=== PATIENT | female | born 1995 | race Caucasian/White ===

== ENCOUNTER 2017-08-21 11:11 | Emergency (ER) | payer MEDICAID, SELFPAY ==
[2017-08-21 11:13] VITALS: BP 120/88; PULSE 107; RESP 16; TEMP 37.1; O2SAT 96; BMI 36.8
--- NOTE | 2017-08-21 11:36 | ED.VISSUMM ---
- ER Visit Summary Date of Service: 08/21/17 Chief Complaint: [] Gonorrhea exposure History of Present Illness: The patient is a 22 F [] requesting antibiotics for exposure to gonorrhea and chlamydia. She reports she had unprotected intercourse with a male partner who reportedly tested positive for gonorrhea and chlamydia. She reports foul odor, dysuria. No significant discharge. She is refusing pelvic exam and requesting treatment. She was strongly encouraged to follow-up with an RETIREMENT PLAN SPECIALIST and receive a Pap smear. Physical Examination: [] Afebrile, vital signs stable. Cardiovascular exam is regular rate and rhythm. Lungs are clear to auscultation. Abdomen is soft and nontender. Pelvic exam was deferred by the patient. Test Results: [] None. Emergency Department Course and Treatment: [] Patient given 250 mg IM Rocephin and 1 g orally of azithromycin. The patient was encouraged to follow-up with her primary care physician. Treatment Plan: [] Follow-up with RETIREMENT PLAN SPECIALIST. Disposition: [] Discharge, stable. Impression: [] Gonorrhea exposure Chlamydia exposure This note was generated with [employer] dictation software. It may contain incorrect words, spelling, and punctuation that were not noted in review of the chart prior to signing ED Disposition - Plan for ED Patient: Chief Complaint: Female C/O Referrals: Care Physician,No Primary [Primary Care Provider] -
--- NOTE | 2017-08-21 11:39 | ED.DCSUM_ITS ---
- ER Visit Summary Date of Service: 08/21/17 Chief Complaint: [] Gonorrhea exposure History of Present Illness: The patient is a 22 F [] requesting antibiotics for exposure to gonorrhea and chlamydia. She reports she had unprotected intercourse with a male partner who reportedly tested positive for gonorrhea and chlamydia. She reports foul odor, dysuria. No significant discharge. She is refusing pelvic exam and requesting treatment. She was strongly encouraged to follow-up with an BRANCH EMPLOYMENT COORDINATOR and receive a Pap smear. Physical Examination: [] Afebrile, vital signs stable. Cardiovascular exam is regular rate and rhythm. Lungs are clear to auscultation. Abdomen is soft and nontender. Pelvic exam was deferred by the patient. Test Results: [] None. Emergency Department Course and Treatment: [] Patient given 250 mg IM Rocephin and 1 g orally of azithromycin. The patient was encouraged to follow-up with her primary care physician. Treatment Plan: [] Follow-up with BRANCH EMPLOYMENT COORDINATOR. Disposition: [] Discharge, stable. Impression: [] Gonorrhea exposure Chlamydia exposure This note was generated with Inmoo dictation software. It may contain incorrect words, spelling, and punctuation that were not noted in review of the chart prior to signing ED Disposition - Plan for ED Patient: Chief Complaint: Female C/O Referrals: Care Physician,No Primary [Primary Care Provider] -
--- NOTE | 2017-08-21 11:39 | ED.DEP ---
ED Disposition - Plan for ED Patient: Disposition: Home or Assisted Living Chief Complaint: Female C/O Instructions: ED VD Cervicitis Treated, ED Chlamydia GC Poss Culture Pend Referrals: Care Physician,No Primary [Primary Care Provider] -
[2017-08-21] MEDS: Azithromycin 250 MG Tablet 1000 MG PO (12:19)
[2017-08-21] MEDS: Ceftriaxone 500 MG Vial 250 MG IM (12:20)
[2017-08-21 12:35] VITALS: PULSE 95; RESP 18; O2SAT 97
== END 2017-08-21 12:35 | disposition home or self-care (01) ==
PROVIDERS: Emergency Provider Emergency Medicine
DX: Z20.2 Contact with and (suspected) exposure to infections with a predominantly sexual mode of transmission (principal); Z72.0 Tobacco use
CPT/HCPCS: 96372; 99283

== ENCOUNTER 2017-09-23 14:36 | Emergency (ER) | payer MEDICAID, SELFPAY ==
[2017-09-23 14:38] VITALS: BP 132/80; PULSE 100; PULSE 102; RESP 19; TEMP 36.9; O2SAT 97; BMI 36.3
--- NOTE | 2017-09-23 15:06 | ED.VISSUMM ---
- ER Visit Summary Date of Service: 09/23/17 Chief Complaint: I know I have an STD History of Present Illness: The patient is a 22 F who states her significant other exposed her again to an STD. States she is having discharge and discomfort. She states is been ongoing for the last week to 2 weeks. She denies any vaginal bleeding. Her last normal menstrual period was 2-3 weeks ago. She also wants to be checked to make sure she does not have a UTI . She denies any fever. Physical Examination: Well-appearing young female with 2 small children. Vital signs are stable afebrile. HEENT exam is unremarkable. Neck nontender no lymphadenopathy. Lungs clear to auscultation bilaterally. Heart regular rate and rhythm no murmur. Abdomen is soft nontender nondistended normal bowel sounds no peritoneal signs. She is moving all 4 extremities. They are neurovascularly intact. Back exam is nontender. Neurologically she is awake and alert with no focal motor deficits. Patient was offered but deferred a pelvic exam. She states I just want to be treated. Test Results: Pulses showed epithelial cells and 3+ bacteria but no other signs of UTI. Urine test was negative. Emergency Department Course and Treatment: With IM Rocephin and p.o. Zithromax. Treatment Plan: She will be treated for an STD given home-going instructions. Disposition: Discharge Impression: Vaginal discharge secondary to STD This note was generated with Postcron dictation software. It may contain incorrect words, spelling, and punctuation that were not noted in review of the chart prior to signing ED Disposition - Plan for ED Patient: Chief Complaint: Female C/O Referrals: Care Physician,No Primary [Primary Care Provider] -
[2017-09-23] MEDS: Azithromycin 250 MG Tablet 1000 MG PO (15:12)
[2017-09-23 15:18] LABS: Mucous, Urine 0 SEEN /hpf (<or=2+); Red Blood Cells-Urine 0 SEEN /hpf (0-5)
[2017-09-23 15:21] LABS: Color, Urine Yellow (Yellow); Glucose, Dipstick Normal (Normal); Ketone-Dipstick Negative (Negative); Leukocyte Esterase-Dipstick 500 /ul (Negative); Nitrite-Dipstick Negative (Negative); Occult Blood-Urine Negative /ul (Negative); Protein-Dipstick 15 mg/dl (Negative); Specific Gravity, Urine 1.015 (1.002-1.030); Urine Bilirubin Dipstick Negative (Negative); Urine Clarity Cloudy (Clear); Urine Urobilinogen 1 mg/dl (Normal)
[2017-09-23 15:22] LABS: Internal QC Validated? YES +Cl - CLEAR BKGD; Pregnancy, Urine Negative Negative
[2017-09-23 15:29] LABS: Amorphous Sediment 1+; Bacteria 3+ /hpf (None Seen); Squamous Epithelial Cells - UA 25-50 SEEN /hpf (5-10); White Blood Cells 0-5 SEEN /hpf (0-5)
--- NOTE | 2017-09-23 15:59 | DCINST.ED_ITS ---
ED Disposition - Plan for ED Patient: Disposition: Home or Assisted Living Chief Complaint: Female C/O Instructions: ED Chlamydia Female Referrals: Ary Landis MD [STAFF PHYSICIAN] - 1 Week if not improving Additional Instructions: Warn all sexual partners valuated. Follow-up with SCIENTIFIC RESEARCH ASSOCIATE physician if not improving.
[2017-09-23] MEDS: Ceftriaxone 500 MG Vial 250 MG IM (16:01)
== END 2017-09-23 16:13 | disposition home or self-care (01) ==
PROVIDERS: Emergency Provider Emergency Medicine
DX: A64 Unspecified sexually transmitted disease (principal); N89.8 Other specified noninflammatory disorders of vagina; R10.2 Pelvic and perineal pain
CPT/HCPCS: 81001; 81025; 96372; 99282

== ENCOUNTER 2017-12-08 15:34 | Emergency (ER) | payer MEDICAID, SELFPAY ==
[2017-12-08 15:35] VITALS: BP 127/74; PULSE 115; RESP 18; TEMP 36.3; O2SAT 96; BMI 36.8
--- NOTE | 2017-12-08 16:33 | ED.DCSUM_ITS ---
- ER Visit Summary Date of Service: 12/08/17 Chief Complaint: Foul smelling vaginal discharge, rash, head itching and couple days late History of Present Illness: The patient is a 22 F who states her menses is late by a couple of days presents with a foul smelling yellow vaginal discharge for 1 month. She complains of dyspareunia. She has history of gonorrhea, chlamydia and trichomonas. She is uncertain whether she had gonorrhea in the past. She is sexually active and does not use any form of control. She denies headache. She denies light sensitivity. She does complain of myalgias and arthralgias. She denies runny nose, sore throat or earache. She denies any cardiac or respiratory symptoms. She denies nausea, vomiting diarrhea. She does complain of dysuria without frequency or urgency. She denies hematuria. She also reports rash the back of her neck. She denies any fever, chills night sweats. She denies any double vision, blurred vision or loss of vision. She denies decreased hearing or ringing of her ears. Physical Examination: Vital signs are unremarkable. She is afebrile. HEENT exam is remarkable for pediculosis. She also has a rash that is either folliculitis versus a heat rash. Neck is supple. There is no cervical lymphadenopathy. Heart is regular without murmur, gallop or rub. S1 and S2 are normal. Lungs are clear to auscultation with good movement of air bilaterally. Abdomen is soft nontender with normal bowel sounds. There is no CVA tenderness noted. She is alert oriented ?3. Test Results: GC and Chlamydia PCR pending. Wet prep positive for trichomoniasis. Serum test negative. Emergency Department Course and Treatment: Will obtain urine for GC chlamydia and wet prep for trichomoniasis. Serum test was ordered. Nurse was informed that patient will need to be undressed for pelvic exam. Treatment Plan: 250 mg of Rocephin IM, 1 g of azithromycin p.o. and 2 g of metronidazole p.o. Patient states she has not had any alcoholic beverage in the last 72 hours. Disposition: Discharged to home with appropriate home-going instructions Impression: 1. Pediculosis 2. Trichomonas vaginosis 3. Amenorrhea unknown etiology This note was generated with Pocket High Streetation software. It may contain incorrect words, spelling, and punctuation that were not noted in review of the chart prior to signing ED Disposition - Plan for ED Patient: Disposition: Home or Assisted Living Chief Complaint: Female C/O Instructions: Vaginal Infection: Trichomoniasis, ED Lice Head Prescriptions: Permethrin 1% [Nix] 60 ml TOPICAL X1 #1 bottle Referrals: Care Physician,No Primary [Primary Care Provider] - Doctor,Your [STAFF PHYSICIAN] - 1 Week Additional Instructions: Your prescription was electronically transmitted to your designated pharmacy
--- NOTE | 2017-12-08 17:23 | CM.ED ---
Social Work Note Referral from Radha Burkett RN, for concerns of pt being overwhelmed with children. Introduced self and role at [facility]. Pt reports to be a single mother. States that the father of her older son, 3 yo, is involved but minimally. States that he has children with 3 other women, and just had a baby girl in the past few weeks. Father of her youngest child is not involved. Pt has very limited supports among family. Inquire about her mother listed on her demo sheet and she reports that her mother lives in [place] and never helps me with anything. Denies that she has any family or friends that live locally to assist when needed. Offer emotional support and brief counseling to pt. Identify strengths and encourage pt. Pt thanks SW. Reports that she lives with her two children only. She does have a wedding planner through [employer], Renya Cook, and states that she is assisting her with obtaining early childhood coordinator. She is presently unemployed and working towards her GED. Reports to have all necessary supplies for children and denies any needs. She is linked with WIC. Denies substance abuse at this time, and denies having any mental health diagnoses. She reports that she does feel depressed however. Denies SI or HI. She claims to have gone to counseling in the past at [facility] and [facility]. Educate to other agencies and pt is open to SW setting up an initial appointment with [facility] tomorrow and contacting her with the appointment time. She inquires how she would get medication for mental health diagnoses. Educate that counseling facilities typically have a psychiatrist that comes weekly, but it could be a few months before she would have an appointment with a psychiatrist. Educate to the importance of a Primary Care Physician (PCP) and that they can also manage mild medications for mental health diagnoses and pt is agreeable to have SW establish care with an area physician for management. Provide pt with resources such as [facility], [facility], [facility] Behavioral Health and Transportation assistance. She denies additional needs at this time. SW to contact and establish appointments with Counseling and PCP for pt. Will update Reyna Cook, insurance case manager, in morning as [facility] is presently closed. Plan: Setup appointments for counseling and PCP and contact pt tomorrow with appointment dates and times. Will also update pt's wedding planner Reyna Cook of visit and resources established/provided. Ange Bennett, 3D TECHNOLOGIST, CAUSTIC LOADER
[2017-12-08 17:39] LABS: Pregnancy, Serum, hCG Quali. NEGATIVE Negative (0-9 Nonpreg)
--- NOTE | 2017-12-08 17:48 | ED.RN ---
This RN expressed concerns for mother and children to social work. Mother is overwhelmed and agreed to speak with social work. See note.
[2017-12-08] MEDS: Azithromycin 250 MG Tablet 1000 MG PO (20:14)
[2017-12-08] MEDS: metroNIDAZOLE 500 MG Tablet 2000 MG PO (20:20)
[2017-12-08 20:23] VITALS: BP 129/98; PULSE 102; RESP 20; O2SAT 100
[2017-12-08] MEDS: Ceftriaxone 500 MG Vial 250 MG IM (20:30)
[2017-12-08 21:39] LABS: Chlamydia Trachomatis by PCR POSITIVE (Negative); Neisserai gonorrhoeae by PCR Negative (Negative); Probe Check PASS
--- NOTE | 2017-12-09 08:51 | CASEMGMT ---
Addendum entered by Ange Bennett 12/09/17 11:27: Social Work Note Call back from Reyna Cook, who states that the pt is constantly changing her phone number and unfortunately cannot provide or confirm one that is valid at this time. States that they have court with her on Thursday and she will have the pt contact SW at this number. States she will also have the pt sign a release so that SW can disclose appointment dates and times and Reyna can assist with transportation to appointments. Will await a phone call on Thursday before moving forward. EDWARD Culver, JEFF Original Note: Social Work Note Placed call to the number the pt provided as she states that the one on the demo sheet is incorrect. Call placed to [phone] and no vm is setup. Placed call to pt's airline station agent, Reyna Cook, to see if she has a recent number and to update on pt's visit yesterday. SW to continue to follow and assist. Once number is confirmed will setup appointments. EDWARD Culver, JEFF
--- NOTE | 2017-12-16 10:55 | CM.ED ---
Social Work Note Call from Mackenzie Topete stating that the pt's case was transferred from Reyna Cook to her. Inform that SW will setup appointments and let her know when they are for her to assist in getting pt to the appointments. Scheduled with Dr. Corral's office on 01/13 at 1400. She is also scheduled with Kisha Briceno at [facility] on 12/22 at 1315. Left Mackenzie a with this information. Requested that Mackenzie contact if any further assistance is needed with trying to setup transportation to appointments. Will continue to follow and assist as needed. Ange Bennett, SNUFF PACKING MACHINE OPERATOR, TILE LAYER HELPER
== END 2017-12-08 20:34 | disposition home or self-care (01) ==
PROVIDERS: Emergency Provider Emergency Medicine
DX: B85.2 Pediculosis, unspecified (principal); A59.01 Trichomonal vulvovaginitis; N91.2 Amenorrhea, unspecified
CPT/HCPCS: 84703; 87210; 87491; 87591; 96372; 99283

== ENCOUNTER 2018-03-22 11:19 | Emergency (ER) | payer MEDICAID, SELFPAY ==
[2018-03-22 11:20] VITALS: BP 125/78; PULSE 132; RESP 18; TEMP 36.6; O2SAT 98; BMI 35.6
--- NOTE | 2018-03-22 11:42 | ED.VISSUMM ---
- ER Visit Summary Date of Service: 03/22/18 Chief Complaint: STD exposure History of Present Illness: The patient is a 23 F who presents being exposed to STDs. She states that her partner has gonorrhea and chlamydia. She states that he has not been treated and she has been having intercourse. She started having a vaginal discharge and a mild amount of dysuria recently. She states that she has had STI's before and request to be treated. Physical Examination: Vital signs reviewed. HEENT exam unremarkable. Heart is regular rate and rhythm without murmurs. Lungs are clear to auscultation. Abdomen is soft and nontender. Patient deferred exam. Neurologic exam normal. Test Results: None performed Emergency Department Course and Treatment: Patient will be treated with Rocephin and azithromycin here. She will go home with Flagyl. She will follow-up with her PCP Treatment Plan: [] Disposition: Discharge Impression: STD exposure, vaginal discharge This note was generated with [employer] dictation software. It may contain incorrect words, spelling, and punctuation that were not noted in review of the chart prior to signing ED Disposition - Plan for ED Patient: Chief Complaint: Complaint Referrals: Care Physician,No Primary [Primary Care Provider] -
--- NOTE | 2018-03-22 11:43 | ED.DEP ---
ED Disposition - Plan for ED Patient: Disposition: Home or Assisted Living Chief Complaint: Complaint Instructions: ED VD Cervicitis Treated Prescriptions: Metronidazole [Flagyl] 500 mg PO Q8H #14 tab Referrals: Care Physician,No Primary [Primary Care Provider] -
[2018-03-22] MEDS: Azithromycin 250 MG Tablet 1000 MG PO (12:15)
[2018-03-22] MEDS: Ceftriaxone 500 MG Vial 250 MG IM (12:39)
[2018-03-22 13:12] VITALS: BP 140/78; PULSE 80; RESP 18; TEMP 37.2
== END 2018-03-22 13:14 | disposition home or self-care (01) ==
PROVIDERS: Emergency Provider Emergency Medicine
DX: Z20.2 Contact with and (suspected) exposure to infections with a predominantly sexual mode of transmission (principal); N89.8 Other specified noninflammatory disorders of vagina; R30.0 Dysuria; Z86.19 Personal history of other infectious and parasitic diseases; Z72.0 Tobacco use
CPT/HCPCS: 96372; 99283

== ENCOUNTER 2018-04-01 10:00 | Emergency (ER) | payer MEDICAID, SELFPAY ==
[2018-04-01] VITALS (11 sets, daily range): BP systolic 113–138; BP diastolic 71–95; PULSE 84–121; RESP 14–16; TEMP 37.4; O2SAT 97–99; BMI 34.0
--- NOTE | 2018-04-01 10:41 | NURSING ---
PER DR AGARWAL, CALLED [facility]
--- NOTE | 2018-04-01 10:42 | ED.DCSUM_ITS ---
- ER Visit Summary Date of Service: 04/01/18 Chief Complaint: [] Upset and stressed out suicidal History of Present Illness: The patient is a 23 F [] reports she has a long son standing stress related to situational issues of being a single mother with 2 children financial issues etc. she is been progressively more depressed about all the above and suicidal, she was brought in by friends because of the above she does indicate that yesterday or recently she smoked methamphetamine she does not normally smoke methamphetamine, she does occasionally smoke marijuana. She denies any other past history she has no complaints She is a rather reluctant historian she keeps saying I am stressed out I am stressed out what more you need to know those types of comments Physical Examination: [] Her vital signs are unremarkable except for heart rate of about 120 her temperature is 99 she is very anxious she is fidgeting in the bed she again is reluctant to participate with history her HEENT is unremarkable her neck is supple her lungs are clear the heart tones are tachycardic to about 100 the abdomen soft nontender upper lower extremity unremarkable neurologically she is moving normally she is fidgeting in the bed, she does admit to being suicidal she is concerned that we will assume that this is all because she used methamphetamine and assume she is some type of a drug addict and not help her, I explained her that not the case that we would help her we will obtain screening labs have mental health services come and assess her for further management options Test Results: [] Emergency Department Course and Treatment: [] Pending screening labs and meds mental health assessment Treatment Plan: [] Disposition: [] Mental health assessment Impression: [] Suicidal ideation, anxiety and situational stress, recent use of methamphetamine This note was generated with Real[employer] dictation software. It may contain incorrect words, spelling, and punctuation that were not noted in review of the chart prior to signing ED Disposition - Plan for ED Patient: Chief Complaint: Suicidal Referrals: Care Physician,No Primary [Primary Care Provider] -
--- NOTE | 2018-04-01 10:56 | NURSING ---
[facility] CALLED BACK. EVERYONE IS SEEING PATIENTS, BUT THEY WILL KEEP US UP TO DATE ON ARRIVAL TIME.
[2018-04-01] MEDS: LORazepam 1 MG Tablet 2 MG PO ×2 (10:59→18:00)
[2018-04-01 11:09] LABS: Absolute Lymphocyte Count 2.47 X10^3/ul (0.83-4.51); Absolute Neutrophil Count 9.2 X10^3/uL (2.0-7.7); Basophil# 0.04 X10^3/uL; Basophil% 0.3 % (0-1); Eosinophil# 0.17 X10^3/uL; Eosinophils% 1.3 % (0-5); Hematocrit 41.2 % (37-47); Hemoglobin 13.3 g/dl (12.0-15.0); Lymphocyte # 2.47 X10^3/ul (4.0); Lymphocyte % 19.4 % (19-41); Mean Corp Hgb Conc 32.3 g/gl (32-36); Mean Corpuscular Hgb 28.4 pg (27.0-32.0); Mean Corpuscular Volume 87.8 fL (81-99); Mean Platelet Vol. 10.4 fl (6.2-12.0); Monocyte# 0.86 X10^3/uL; Monocyte% 6.7 % (0-10); Neutrophil # 9.19 X10^3/uL (2.7-7.7); Neutrophil % 72.1 % (47-70); POSITIVE COUNT NO; POSITIVE DIFFERENTIAL NO; POSITIVE MORPHOLOGY NO; Platelet Count 350 K/mm3 (150-450); RBC Distribution Width CV 14.1 % (11.6-14.6); RBC Distribution Width SD 45.6 fl (35.1-43.9); Red Blood Count 4.69 M/mm3 (4.2-5.4); White Blood Count 12.8 K/mm3 (4.4-11.0)
[2018-04-01 11:16] LABS: Anion Gap 7 (5-15); BUN 10 mg/dL (7-18); BUN/Creat Ratio 13.6 RATIO (10-20); Calcium,Total 8.9 mg/dL (8.5-10.1); Chloride 108 mmol/L (98-107); Creatinine, Serum 0.74 mg/dL (0.55-1.02); EST Glomerular Filtration Rate 103 mL/min (>60); Est Glom Filt Rate - Afr Amer 125 mL/min (>60); Estimated Creatinine Clearance 101.23 ml/min; Glucose 91 mg/dL (74-106); Potassium 3.5 mmol/L (3.5-5.1); Sodium Level 140 mmol/L (136-145)
[2018-04-01 11:28] LABS: Pregnancy, Serum, hCG Quali. NEGATIVE Negative (0-9 Nonpreg)
[2018-04-01 11:29] LABS: Amphetamine Urine VISTA POSITIVE (<1000 ng/mL); Barbiturate Urine VISTA NEGATIVE (< 200 ng/mL); Benzodiazepine Urine VISTA NEGATIVE (< 200 ng/mL); Cocaine Urine VISTA NEGATIVE (< 300 ng/mL); Ecstacy Urine VISTA NEGATIVE (< 500 ng/mL); Methadone Urine VISTA NEGATIVE (< 300 ng/mL); PCP Urine VISTA NEGATIVE (< 25 ng/mL); THC Urine VISTA POSITIVE (< 50 ng/mL); Vista UDS pH Range 5
[2018-04-01 11:39] LABS: Alcohol, Blood (Medical)-Serum < 3.0 mg/dL
--- NOTE | 2018-04-01 12:03 | NURSING ---
CALLED [facility]. LEFT MESSAGE WITH PERSON THAT ANSWERED PHONE
--- NOTE | 2018-04-01 12:07 | NURSING ---
KATIE, [facility], CALLED BACK. SOMEONE WILL BE IN
--- NOTE | 2018-04-01 12:16 | ED.RN ---
CALLED [facility] FOR MEAL TRAY
--- NOTE | 2018-04-01 12:32 | ED.RN ---
PT INFORMED OF PLAN OF CARE. SHE WAS INFORMED THAT OUR JOB IS TO KEEP HER SAFE AND MEDICALLY CLEAR HER. IT IS [facility]'S JOB TO EVAL AND PLACE PT IF NEEDED. SHE STATES SHE IN NOT HOMICIDAL. JUST SUICIDAL AND REALLY NEEDS HELP. SHE WAS REASSURED THAT'S WHAT WE ARE TRYING TO DO. Radha LOWERY RN
[2018-04-01] MEDS: Albuterol 2.5 MG/3 ML VIAL.NEB. INHALATION (13:17)
[2018-04-01] MEDS: Acetaminophen 500 MG Tablet 1000 MG PO (18:00)
--- NOTE | 2018-04-01 21:46 | NURSING ---
[facility] CALLED TO NOTIFY THEM ABOUT HOSPITALIZATION ASK REQUESTED BY ICU STAFF NURSE ARLENE MONROY. CALLED NUMBER ON CARD. NO ANSWER. NO ANSWERING MACHINE TO LEAVE A MESSAGE. [phone] Radha LOWERY RN
== END 2018-04-01 22:17 ==
LOC: ED 11:03
PROVIDERS: Emergency Provider Emergency Medicine
DX: R45.851 Suicidal ideations (principal); F41.9 Anxiety disorder, unspecified; F43.9 Reaction to severe stress, unspecified; F15.90 Other stimulant use, unspecified, uncomplicated
CPT/HCPCS: 80048; 80307; 80320; 84703; 85025; 94640; 99285; G0480

== ENCOUNTER 2018-04-26 14:24 | Emergency (ER) | payer MEDICAID, SELFPAY ==
[2018-04-26 14:25] VITALS: BP 123/93; PULSE 142; RESP 18; TEMP 36.3; O2SAT 94; BMI 34.0
[2018-04-26 15:35] LABS: Red Blood Cells-Urine 0 SEEN /hpf (0-5)
[2018-04-26 15:42] LABS: Color, Urine Yellow (Yellow); Glucose, Dipstick Normal (Normal); Ketone-Dipstick 5 mg/dl (Negative); Leukocyte Esterase-Dipstick 500 /ul (Negative); Nitrite-Dipstick Negative (Negative); Occult Blood-Urine 10 /ul (Negative); Protein-Dipstick 15 mg/dl (Negative); Specific Gravity, Urine 1.025 (1.002-1.030); Urine Bilirubin Dipstick Negative (Negative); Urine Clarity Cloudy (Clear); Urine Urobilinogen 1 mg/dl (Normal)
[2018-04-26 15:54] LABS: Bacteria 2+ /hpf (None Seen); Squamous Epithelial Cells - UA 5-10 SEEN /hpf (5-10); White Blood Cells 5-10 SEEN /hpf (0-5)
[2018-04-26 15:55] LABS: Mucous, Urine 3+ /hpf (<or=2+)
--- NOTE | 2018-04-26 16:20 | ED.VISSUMM ---
- ER Visit Summary Date of Service: 04/26/18 Chief Complaint: Vaginal discharge and pelvic pain History of Present Illness: The patient is a 23 F with vaginal discharge and pelvic cramping and pain for the past 1 month. Patient describes green vaginal discharge. She states her partner is positive for gonorrhea and chlamydia. Patient was treated with Rocephin, Zithromax, and Flagyl in early March for this known exposure. Patient states her partner was never treated and she continues to have symptoms. Physical Examination: Vital signs in triage significant for heart rate of 142. The time of my examination her heart rate is 103. Patient sitting upright in bed watching television in no acute distress. She is nontoxic appearing. Head neck examination is normal. Heart is slightly tachycardic. Lung sounds are clear. Abdomen is soft with mild suprapubic tenderness. No guarding or rebound. Test Results: [] Emergency Department Course and Treatment: Patient declined a pelvic exam. Urine will be sent for gonorrhea and chlamydia. Urinalysis shows 5-10 white cells with 5-10 epithelials and 2+ bacteria. Nitrites are negative. Urine test will be added at this time along with the gonorrhea and chlamydia. Patient will be treated for STDs with Rocephin, doxycycline, and Flagyl. If her test returns positive I will call her. Patient was advised to have her partner treated. Treatment Plan: [] Disposition: Discharge Impression: STD This note was generated with [employer] dictation software. It may contain incorrect words, spelling, and punctuation that were not noted in review of the chart prior to signing ED Disposition - Plan for ED Patient: Chief Complaint: Complaint Referrals: Care Physician,No Primary [Primary Care Provider] -
--- NOTE | 2018-04-26 16:22 | ED.DEP ---
ED Disposition - Plan for ED Patient: Disposition: Home or Assisted Living Chief Complaint: Complaint Instructions: ED VD Cervicitis Treated Prescriptions: Doxycycline Monohydrate 100 mg PO BID #28 capsule Metronidazole [Flagyl] 500 mg PO BID #28 tablet Referrals: Haydee Martinez CNM [Certified Nurse Fuel Efficient Automobile Designer] - As soon as possible
--- NOTE | 2018-04-26 16:25 | DCINST.ED_ITS ---
ED Disposition - Plan for ED Patient: Disposition: Home or Assisted Living Chief Complaint: Complaint Instructions: ED VD Cervicitis Treated Prescriptions: Doxycycline Monohydrate 100 mg PO BID #28 capsule Metronidazole [Flagyl] 500 mg PO BID #28 tablet Referrals: Haydee Martinez CNM [Certified Nurse [employer] [place]] - As soon as possible
[2018-04-26] MEDS: Doxycycline 100 MG CAPSULE PO (16:39)
[2018-04-26] MEDS: metroNIDAZOLE 500 MG Tablet PO (16:39)
[2018-04-26 16:41] VITALS: BP 154/96; BP 156/94; PULSE 113; RESP 16; O2SAT 98
[2018-04-26 16:45] LABS: Internal QC Validated? YES +Cl - CLEAR BKGD; Pregnancy, Urine Negative Negative
[2018-04-26] MEDS: Ceftriaxone 500 MG Vial 250 MG IM (16:58)
[2018-04-26 18:21] LABS: Chlamydia Trachomatis by PCR Negative (Negative); Neisserai gonorrhoeae by PCR Positive (Negative); Probe Check PASS
--- NOTE | 2018-04-26 18:24 | ED.RN ---
POS FOR GONORRHEA DR AWAD AWARE NO NEED FOR DIFFERENT TREATMENT
== END 2018-04-26 17:16 | disposition home or self-care (01) ==
PROVIDERS: Emergency Provider Emergency Medicine
DX: A64 Unspecified sexually transmitted disease (principal); Z72.0 Tobacco use
CPT/HCPCS: 81001; 81025; 87491; 87591; 96372; 99283

== ENCOUNTER 2018-05-06 15:25 | Emergency (ER) | payer MEDICAID, SELFPAY ==
[2018-05-06 15:26] VITALS: BP 126/74; PULSE 108; RESP 16; TEMP 36.6; O2SAT 98; BMI 35.5
[2018-05-06 16:09] LABS: Bacteria 0 SEEN /hpf (None Seen); Mucous, Urine 0 SEEN /hpf (<or=2+); White Blood Cells 0 SEEN /hpf (0-5)
[2018-05-06 16:22] LABS: Color, Urine Yellow (Yellow); Glucose, Dipstick Normal (Normal); Ketone-Dipstick Negative (Negative); Leukocyte Esterase-Dipstick Negative /ul (Negative); Nitrite-Dipstick Negative (Negative); Occult Blood-Urine 10 /ul (Negative); Protein-Dipstick Negative (Negative); Specific Gravity, Urine 1.015 (1.002-1.030); Urine Bilirubin Dipstick Negative (Negative); Urine Clarity Clear (Clear); Urine Urobilinogen Normal (Normal)
[2018-05-06] MEDS: Azithromycin 250 MG Tablet 1000 MG PO (16:24)
[2018-05-06] MEDS: Acetaminophen 500 MG Tablet 1000 MG PO (16:25)
[2018-05-06] MEDS: metroNIDAZOLE 500 MG Tablet 2000 MG PO (16:25)
[2018-05-06] MEDS: Ondansetron ODT 4 MG Tablet PO (16:25)
[2018-05-06 16:35] LABS: Red Blood Cells-Urine 0-5 SEEN /hpf (0-5); Squamous Epithelial Cells - UA 0-5 SEEN /hpf (5-10)
--- NOTE | 2018-05-06 16:58 | ED.DCSUM_ITS ---
- ER Visit Summary Date of Service: 05/06/18 Chief Complaint: Vaginal discharge History of Present Illness: The patient is a 23 F [facility] She reports that she has vaginal discharge that began approximate 1 month ago. States that she was seen in the emergency department on April 26 and was treated for gonorrhea and chlamydia. However, she reports that she vomited approximately 10 minutes after getting the pills and is concerned because her symptoms have not gotten better. She complains of a thick, foul- smelling green discharge. She also reports that she is having dysuria. Her last menstrual period was April 10. She reports that she has not been sexually active for the past 1-2 months. She denies any fever, chills, or other complaints. Physical Examination: Vitals: Stable. Afebrile. General: Well-nourished and well-developed. Head: Normocephalic atraumatic. Neck: Supple, no lymphadenopathy. No JVD. Nontender. Cardiovascular: Regular rate and rhythm. No murmurs. Respiratory: No respiratory distress. Clear to auscultation bilaterally. Abdominal: Soft, mild suprapubic tenderness to palpation, nondistended, normal bowel sounds. No guarding, rebound, or peritoneal signs. : Refused. Back: Nontender. Extremities: Nontender, no edema. Skin: Normal color, no rash. Neurologic: Alert and oriented ?3. Cranial nerves II through XII are intact. Normal strength and sensation. Psych: Normal affect. Test Results: UA is negative. test is negative. Emergency Department Course and Treatment: The patient wanted to be treated prior to receiving the results of her gonorrhea and Chlamydia test. She was given Rocephin IM. She was also given Flagyl and Zithromax p.o. This time she was given Zofran so she did not vomit with this. Ultimately her gonorrhea chlamydia returned and were negative. However, the patient had already left the emergency department at this point. Treatment Plan: Patient was discussed with Dr. Ballesteros. She will be discharged instructions follow-up in 1 week for another exam. Return to the emergency department for any worsening symptoms. Disposition: To home in improved and stable condition. Impression: 1. Vaginal discharge. This note was generated with [employer] software. It may contain incorrect words, spelling, and punctuation that were not noted in review of the chart prior to signing ED Disposition - Plan for ED Patient: Disposition: Home or Assisted Living Chief Complaint: Female C/O Instructions: ED VD Cervicitis Treated Referrals: Pinky Hinojosa MD [STAFF PHYSICIAN] - 1 Week
[2018-05-06 17:19] LABS: Internal QC Validated? YES +Cl - CLEAR BKGD; Pregnancy, Urine Negative Negative
[2018-05-06 19:01] LABS: Chlamydia Trachomatis by PCR Negative (Negative); Neisserai gonorrhoeae by PCR Negative (Negative); Probe Check PASS; Sample Adequacy Control PASS; Specimen Processing Control PASS
== END 2018-05-06 17:06 | disposition home or self-care (01) ==
PROVIDERS: Emergency Provider Emergency Medicine
DX: N89.8 Other specified noninflammatory disorders of vagina (principal); Z72.0 Tobacco use
CPT/HCPCS: 81001; 81025; 87491; 87591; 96372; 99282

== ENCOUNTER 2018-06-14 20:12 | Emergency (ER) | payer MEDICAID, SELFPAY ==
[2018-06-14 20:13] VITALS: BP 124/73; PULSE 107; RESP 16; TEMP 36.8; O2SAT 97; BMI 34.7
--- NOTE | 2018-06-14 20:35 | ED.VISSUMM ---
- ER Visit Summary Date of Service: 06/14/18 Chief Complaint: [] Chronic vaginal discharge History of Present Illness: The patient is a 23 F [] has chronic vaginal discharge presents to the emergency department she has had it for months she has been seen in the ED treated reports really no improvement, she has been referred to Dr. Ramsey of [employer] has not followed up as instructed presents today because she still has a discharge, reports a distant history for STD exposure she denies any chance of today no vaginal bleeding in the discharge again is not new or different in any way Physical Examination: [] Vital signs are stable she is afebrile General, no distress resting comfortably HEENT is generally unremarkable The neck is supple no adenopathy Cardiovascular, regular rate and rhythm Lungs, clear bilateral Abdomen, soft nontender Neurologic, awake alert answering questions appropriately moving all 4 extremities Her abdominal exam is nontender she completely denies any chance of I explained her that given the chronicity of this condition given the lack of any change that is better and more appropriate for her to follow-up with her radio artist as she is been instructed to do, in addition the other treatment modalities prescribed her to the emergency department did not work, at this time she understands and will follow up I explained to her we can start her workup at least by getting urine PCR for GC and chlamydia but explained to her that result will follow up in her doctor's office she understands Test Results: [] Emergency Department Course and Treatment: [] Treatment Plan: [] Disposition: [] Home stable Impression: [] Chronic vaginal discharge This note was generated with [employer] dictation software. It may contain incorrect words, spelling, and punctuation that were not noted in review of the chart prior to signing ED Disposition - Plan for ED Patient: Chief Complaint: Female C/O Referrals: Care Physician,No Primary [Primary Care Provider] -
--- NOTE | 2018-06-14 20:38 | ED.DCSUM_ITS ---
- ER Visit Summary Date of Service: 06/14/18 Chief Complaint: [] Chronic vaginal discharge History of Present Illness: The patient is a 23 F [] has chronic vaginal discharge presents to the emergency department she has had it for months she has been seen in the ED treated reports really no improvement, she has been referred to Dr. Ramsey of [employer] has not followed up as instructed presents today because she still has a discharge, reports a distant history for STD exposure she denies any chance of today no vaginal bleeding in the discharge again is not new or different in any way Physical Examination: [] Vital signs are stable she is afebrile General, no distress resting comfortably HEENT is generally unremarkable The neck is supple no adenopathy Cardiovascular, regular rate and rhythm Lungs, clear bilateral Abdomen, soft nontender Neurologic, awake alert answering questions appropriately moving all 4 extremities Her abdominal exam is nontender she completely denies any chance of I explained her that given the chronicity of this condition given the lack of any change that is better and more appropriate for her to follow-up with her fleecer as she is been instructed to do, in addition the other treatment modalities prescribed her to the emergency department did not work, at this time she understands and will follow up I explained to her we can start her workup at least by getting urine PCR for GC and chlamydia but explained to her that result will follow up in her doctor's office she understands Test Results: [] Emergency Department Course and Treatment: [] Treatment Plan: [] Disposition: [] Home stable Impression: [] Chronic vaginal discharge This note was generated with [employer] dictation software. It may contain incorrect words, spelling, and punctuation that were not noted in review of the chart prior to signing ED Disposition - Plan for ED Patient: Chief Complaint: Female C/O Referrals: Care Physician,No Primary [Primary Care Provider] -
--- NOTE | 2018-06-14 20:38 | ED.DEP ---
ED Disposition - Plan for ED Patient: Chief Complaint: Female C/O Instructions: Vaginal Infection: Bacterial Vaginosis Referrals: Care Physician,No Primary [Primary Care Provider] - Terrence Ballesteros [NON-STAFF] - Additional Instructions: Follow-up with your [facility] commercial construction project manager for results of your urine test today and other treatment options
--- NOTE | 2018-06-14 20:42 | DCINST.ED_ITS ---
ED Disposition - Plan for ED Patient: Chief Complaint: Female C/O Instructions: Vaginal Infection: Bacterial Vaginosis Referrals: Care Physician,No Primary [Primary Care Provider] - Terrence Ballesteros [NON-STAFF] - Additional Instructions: Follow-up with your [facility] stock preparer for results of your urine test today and other treatment options
[2018-06-14 22:32] LABS: Chlamydia Trachomatis by PCR Negative (Negative); Neisserai gonorrhoeae by PCR Negative (Negative); Probe Check PASS; Sample Adequacy Control PASS; Specimen Processing Control PASS
== END 2018-06-14 20:56 | disposition home or self-care (01) ==
LOC: ED 20:53
PROVIDERS: Emergency Provider Emergency Medicine
DX: N89.8 Other specified noninflammatory disorders of vagina (principal)
CPT/HCPCS: 87491; 87591; 99282

== ENCOUNTER 2018-06-19 13:58 | Emergency (ER) | payer MEDICAID, SELFPAY ==
[2018-06-19 13:59] VITALS: BP 100/70; PULSE 99; RESP 16; TEMP 36.7; O2SAT 98; BMI 33.7
--- NOTE | 2018-06-19 14:13 | ED.DCSUM_ITS ---
- ER Visit Summary Date of Service: 06/19/18 Chief Complaint: Sore throat History of Present Illness: The patient is a 23 F presents to the emergency department sore throat. Patient has a history of strep and states this feels the same. Over the past 2 days, she had worsening sore throat, fevers, chills, myalgias. She states it hurts to speak and swallow. She has not taken anything for it. She is otherwise healthy. She is no history of immunosuppression. Physical Examination: Exam is relatively unremarkable. Oropharynx is widely patent. Patient does have bilateral tonsillar exudates. Uvula is midline. There is no evidence of retropharyngeal or peritonsillar abscess. There is no trismus. There is no stridor. Neck is supple with anterior lymphadenopathy. Test Results: [] Emergency Department Course and Treatment: Patient has exudative pharyngitis with history of strep. I am going to treat her. She does have allergy to penicillin. She will be given Decadron, Naprosyn, and azithromycin. She will be continued on antibiotics as an outpatient. She was counseled concerning symptoms and reasons to return. She has no evidence of abscess. I do feel that she can safely be treated as an outpatient. Treatment Plan: [] Disposition: Discharge Impression: Strep pharyngitis This note was generated with [employer] dictation software. It may contain incorrect words, spelling, and punctuation that were not noted in review of the chart prior to signing ED Disposition - Plan for ED Patient: Chief Complaint: Sore Throat Instructions: ED Strep Pharyngitis Conf Prescriptions: Azithromycin [Zithromax] 250 mg PO DAILY #4 tab Naproxen [Naprosyn] 500 mg PO BID PRN #20 tab Referrals: Care Physician,No Primary [Primary Care Provider] -
[2018-06-19] MEDS: Azithromycin 250 MG Tablet 500 MG PO (14:18)
[2018-06-19] MEDS: Naproxen 500 MG Tablet PO (14:18)
== END 2018-06-19 14:40 | disposition home or self-care (01) ==
PROVIDERS: Emergency Provider Emergency Medicine
DX: J02.0 Streptococcal pharyngitis (principal)
CPT/HCPCS: 99283

== ENCOUNTER 2018-07-23 16:55 | Emergency (ER) | payer MEDICAID, SELFPAY ==
[2018-07-23 16:56] VITALS: BP 125/84; PULSE 78; RESP 16; TEMP 37.3; O2SAT 96; BMI 34.6
--- NOTE | 2018-07-23 18:10 | ED.VISSUMM ---
- ER Visit Summary Date of Service: 07/23/18 Chief Complaint: Depression History of Present Illness: The patient is a 23 F presents feeling depressed and wants to talk to someone. She would like to have detox or rehab for methamphetamines cocaine and marijuana, she is not suicidal, she uses no other drugs she does smoke. Her depression is situational, apparently she is trying to go live with her aunt but would not be accepted until she is drug free and she wants to quit. She does not know if she can do it on her own. She has no chest pain shortness of breath fever chills or systemic complaints. Again she denies any suicidal ideations. Physical Examination: Not appear in acute distress. Moist mucous membranes, no obvious facial deformity No C-spine tenderness supple neck. Regular rate and rhythm without any obvious murmurs Clear lungs bilaterally speaking in full sentences without any obvious respiratory distress Abdomen soft and nontender no guarding or rebound Moves all extremities without any difficulty or pain. Skin does not show any obvious rashes or lesions, no trauma. She has a flat affect Alert oriented ?3 with no gross focal deficit Emergency Department Course and Treatment: Patient was seen by psychiatric social worker, she is on telephone with hide worker, unfortunately she does not meet criteria for detox, she is not suicidal she will be followed up by crisis outpatient there is no indication for any sort of admission. She is lucid coherent does not appear to be under any influence and is on talking to her she seems quite rational. Disposition: Discharge stable condition Impression: Depression Drug use and abuse This note was generated with [employer] dictation software. It may contain incorrect words, spelling, and punctuation that were not noted in review of the chart prior to signing ED Disposition - Plan for ED Patient: Disposition: Home or Assisted Living Instructions: ED Drug Abuse General, ED Depression Referrals: Care Physician,No Primary [Primary Care Provider] - 3-5 Days
--- NOTE | 2018-07-23 18:10 | CM.ED ---
Social Work Assessment Reason for Consult: Depression Informant: Dr. Brown Information obtained from: Pt who is alert and oriented. Pt presents with depressed affect as evidenced by slouched posture, poor eye contact, and tearfulness. Living Arrangements: States she has been living with her cousin, I'm not homeless or anything, that's not the problem here. Employment: Pt is unemployed at this time. Supports: Identifies her cousin as a primary support, but continually states that no one wants to help me. Mental Health Hx: Pt denies mental health history. Address that she went to [facility] in March for suicidal ideation. Pt states that she has depression. Does not see a counselor and is not medicated. Inquire if she ever had any aftercare and the pt denies following up with services. States, my mental health is not right and no one wants to help me. Inquire if the pt is suicidal and she states, yes, no one is helping me. Inquire if she has a plan and she denies. Discuss options of linking with services for follow-up appointments on Thursday with crisis or behavioral health and if the pt feels she could keep herself safe and she states she wants to talk to crisis. Inform that crisis comes to the ED if pt are suicidal, homicidal or in psychosis and again inquire if she wishes she were and wants to kill herself and she states no. Discuss that she could contact crisis on their crisis line and the pt opts to do this. Substance Abuse Hx: Pt reports using marijuana this date. Reports using cocaine and meth once in the two weeks. Prior to that she reports that it had been months. Discuss with her that she is not requiring detox then as she would not be going through withdrawals from those substances at this time, and encourage her to seek outpatient treatment options through [facility] or [facility]. Offer to contact [facility] for the pt and she requests this worker contact them on her behalf. No hx of prior treatments. Placed call to [facility]'s hotline and was transferred to [facility], [facility]. Informed pt that no one is presently in and provide her with the hotline along with the phone number for [facility]. Explain she would need to do an intake with them and it would likely not be an option for acceptance until the beginning of this upcoming week, but encourage her to contact them. Pt again states that no one wants to help her. Provide support and again explain the options that are available. Assessment: Pt is depressed, but upon evaluation not suicidal or homicidal. She is not actively going through detox, but is seeking treatment options. The pt feels she requires inpatient detox and is not comprehending that she does not meet criteria at this time for inpatient substance abuse treatment nor mental health treatment. She continues to state that no one wants to help her. Educate to resources and hotline numbers and at this time pt opts to contact crisis via her phone as she is not suicidal or homicidal and they would not come to the ED to evaluate for her presenting concerns. Intervention(s): Educated pt to multiple options for treatment of substance abuse and mental health as an outpatient, both intensive outpatient treatment and more traditional outpatient treatments. Pt continues to believe she needs inpatient treatment despite the fact that she does not meet criteria for psychiatric hospitalization and is not going through withdrawals. Contacted [facility] and they are closed, contacted the hotline and was transferred to [facility] and got not answer. Left vm. [facility] hotline and [facility] phone number provided. Crisis hotline provided to pt upon her request. Pt declines to allow this sign writer letterer or painter to establish a crisis follow-up appointment. Updated RN and physician and anticipate discharge back to her cousin's residence. PLAN: Discharge to cousins. Ange Bennett, EDWARD, SAMMI
--- NOTE | 2018-07-23 18:14 | ED.DCSUM_ITS ---
- ER Visit Summary Date of Service: 07/23/18 Chief Complaint: Depression History of Present Illness: The patient is a 23 F presents feeling depressed and wants to talk to someone. She would like to have detox or rehab for methamphetamines cocaine and marijuana, she is not suicidal, she uses no other drugs she does smoke. Her depression is situational, apparently she is trying to go live with her aunt but would not be accepted until she is drug free and she wants to quit. She does not know if she can do it on her own. She has no chest pain shortness of breath fever chills or systemic complaints. Again she denies any suicidal ideations. Physical Examination: Not appear in acute distress. Moist mucous membranes, no obvious facial deformity No C-spine tenderness supple neck. Regular rate and rhythm without any obvious murmurs Clear lungs bilaterally speaking in full sentences without any obvious respiratory distress Abdomen soft and nontender no guarding or rebound Moves all extremities without any difficulty or pain. Skin does not show any obvious rashes or lesions, no trauma. She has a flat affect Alert oriented ?3 with no gross focal deficit Emergency Department Course and Treatment: Patient was seen by social insurance adviser, she is on telephone with stock house worker, unfortunately she does not meet criteria for detox, she is not suicidal she will be followed up by crisis outpatient there is no indication for any sort of admission. She is lucid coherent does not appear to be under any influence and is on talking to her she seems quite rational. Disposition: Discharge stable condition Impression: Depression Drug use and abuse This note was generated with [employer] dictation software. It may contain incorrect words, spelling, and punctuation that were not noted in review of the chart prior to signing ED Disposition - Plan for ED Patient: Disposition: Home or Assisted Living Instructions: ED Drug Abuse General, ED Depression Referrals: Care Physician,No Primary [Primary Care Provider] - 3-5 Days
[2018-07-23 18:37] VITALS: BP 123/86; PULSE 87; RESP 16; O2SAT 98
--- NOTE | 2018-07-23 18:47 | ED.RN ---
THIS PT WAS INSTRUCTED THAT CHRIS FROM [facility] WOULD CALL HER WHEN SHE GETS HOME, SHE WAS ALSO INSTRUCTED BY CRISIS TO GO INTO [facility] ON THURSDAY AT 0830 AND THAT THEY WOULD HELP HER WITH HER ADDICTION.
--- NOTE | 2018-07-23 18:49 | CM.ED ---
Social Work Note Placed call to crisis and requested a return phone call to this tech writer. Updated by RN that Seema from crisis was going to contact the pt this evening to discuss her mental health further and recommended the pt also follow-up with [facility] on Thursday for assistance with her substance abuse. Ange Bennett, PHYSICIAN OFFICE SECRETARY, SAMMI
== END 2018-07-23 18:48 | disposition home or self-care (01) ==
PROVIDERS: Emergency Provider Emergency Medicine
DX: F32.9 Major depressive disorder, single episode, unspecified (principal); F15.10 Other stimulant abuse, uncomplicated; F14.10 Cocaine abuse, uncomplicated; F12.10 Cannabis abuse, uncomplicated; F17.200 Nicotine dependence, unspecified, uncomplicated
CPT/HCPCS: 99283

== ENCOUNTER 2018-07-26 00:39 | Emergency (ER) | payer MEDICAID, SELFPAY ==
[2018-07-26] VITALS (9 sets, daily range): BP systolic 108–149; BP diastolic 76–106; PULSE 81–129; RESP 12–19; TEMP 36.2–36.7; O2SAT 18–100; BMI 35.0
[2018-07-26 01:29] LABS: Absolute Lymphocyte Count 4.77 X10^3/ul (0.83-4.51); Absolute Neutrophil Count 5.4 X10^3/uL (2.0-7.7); Basophil# 0.06 X10^3/uL; Basophil% 0.5 % (0-1); Eosinophil# 0.22 X10^3/uL; Hematocrit 42.4 % (37-47); Hemoglobin 13.9 g/dl (12.0-15.0); Lymphocyte # 4.77 X10^3/ul (4.0); Lymphocyte % 42.8 % (19-41); Mean Corp Hgb Conc 32.8 g/gl (32-36); Mean Corpuscular Hgb 29.1 pg (27.0-32.0); Mean Corpuscular Volume 88.9 fL (81-99); Mean Platelet Vol. 10.8 fl (6.2-12.0); Monocyte# 0.64 X10^3/uL; Monocyte% 5.7 % (0-10); Neutrophil # 5.42 X10^3/uL (2.7-7.7); Neutrophil % 48.7 % (47-70); Platelet Count 383 K/mm3 (150-450); RBC Distribution Width CV 14.2 % (11.6-14.6); RBC Distribution Width SD 46.2 fl (35.1-43.9); Red Blood Count 4.77 M/mm3 (4.2-5.4); White Blood Count 11.1 K/mm3 (4.4-11.0)
[2018-07-26 01:31] LABS: POSITIVE COUNT NO; POSITIVE DIFFERENTIAL NO; POSITIVE MORPHOLOGY NO
[2018-07-26 01:44] LABS: Alcohol, Blood (Medical)-Serum < 3.0 mg/dL
[2018-07-26 01:46] LABS: Anion Gap 11 (5-15); BUN 18 mg/dL (7-18); Chloride 108 mmol/L (98-107); Creatinine, Serum 0.94 mg/dL (0.55-1.02); EST Glomerular Filtration Rate 77 mL/min (>60); Est Glom Filt Rate - Afr Amer 93 mL/min (>60); Estimated Creatinine Clearance 79.69 ml/min; Glucose 84 mg/dL (74-106); Potassium 3.8 mmol/L (3.5-5.1); Pregnancy, Serum, hCG Quali. NEGATIVE Negative (0-9 Nonpreg); Sodium Level 140 mmol/L (136-145)
--- NOTE | 2018-07-26 01:46 | ED.DCSUM_ITS ---
- ER Visit Summary Date of Service: 07/26/18 Chief Complaint: Depressed, suicidal and drug abuse History of Present Illness: The patient is a 23 F no past medical history other than depression. She does intermittently see the counseling center. Patient has a history of marijuana and methamphetamine abuse. She has been depressed for months and has been contemplating suicide. Denies any prior attempts. In the past she did have a prior attempted overdose. Physical Examination: Well-appearing young female. Vital signs are stable. She does not look septic or toxic. No acute distress. No toxidrome. No smell of alcohol. She is calm and cooperative. HEENT exam unremarkable. Neck nontender no lymphadenopathy. Lungs clear to auscultation bilaterally. Heart regular rhythm no murmur. Rate about 120. Abdomen is soft and nontender. Normal bowel sounds no peritoneal signs. Extremities moves all 4. Neurovascular intact. No track adair. No signs of trauma. Normal range of motion. Back nontender. Neurologically she is awake and alert with no focal motor deficits. Test Results: CBC White count 1.1. Hemoglobin 13. Electrolytes unremarkable normal BUN, creatinine and gap. Serum test negative. Alcohol level negative. Emergency Department Course and Treatment: Patient will undergo an ED mental health evaluation and labs. Disposition will be determined after she has a crisis evaluation and discuss it with the physician at that time. Treatment Plan: [] Disposition: [] Impression: Acute depression with suicidal ideation History of marijuana and methamphetamine abuse This note was generated with [employer] dictation software. It may contain incorrect words, spelling, and punctuation that were not noted in review of the chart prior to signing ED Disposition - Plan for ED Patient: Referrals: Care Physician,No Primary [Primary Care Provider] -
[2018-07-26 02:07] LABS: Amphetamine Urine VISTA POSITIVE (<1000 ng/mL); Barbiturate Urine VISTA NEGATIVE (< 200 ng/mL); Benzodiazepine Urine VISTA NEGATIVE (< 200 ng/mL); Cocaine Urine VISTA NEGATIVE (< 300 ng/mL); Ecstacy Urine VISTA POSITIVE (< 500 ng/mL); Methadone Urine VISTA NEGATIVE (< 300 ng/mL); PCP Urine VISTA NEGATIVE (< 25 ng/mL); THC Urine VISTA POSITIVE (< 50 ng/mL); Vista UDS pH Range 5
--- NOTE | 2018-07-26 03:27 | NURSING ---
CALLED [facility] AT [phone]
--- NOTE | 2018-07-26 03:37 | ED.RN ---
PATIENT IS COOPERATIVE AND STILL AWAKE AT THIS HOUR. PATIENT STATES SHE DOESN'T TAKE ANY MEDICATIONS WHEN I ASKED HER. MARIA TERESA, PRODUCTION SUPPLY EQUIPMENT TENDER IS AT THE BEDSIDE SITTING.
--- NOTE | 2018-07-26 06:14 | ED.RN ---
DR. RAMOS WAS MADE AWARE OF PATIENT'S MANUAL BP'S BEING DOWN, SO SHE SAID TO HOLD THE APPRESOLINE.
--- NOTE | 2018-07-26 08:00 | EKG12_ITS ---
Test Reason : Blood Pressure : / mmHG Vent. Rate : 096 BPM Atrial Rate : 096 BPM P-R Int : 140 ms QRS Dur : 086 ms QT Int : 364 ms P-R-T Axes : 062 070 054 degrees QTc Int : 459 ms Normal sinus rhythm Normal ECG Confirmed by GATO DELUNA, LEONARDO ([id number]), editor news SCOOBY JACOBS ([id number]) on 07/28/2018 1:49:33 PM Referred By: MAX Confirmed By:LEONARDO HOSKINS MD
--- NOTE | 2018-07-26 08:02 | NURSING ---
NO OLD EKGS
--- NOTE | 2018-07-26 12:29 | ED.RN ---
[facility] called with accepting states they are ready for the patient. Going to unit C2. Nurse to nurse to be called to [phone] ex [phone].
--- NOTE | 2018-07-26 12:32 | NURSING ---
CALLED [facility] FOR TRANSPORT. ETA IS 2 HR
--- NOTE | 2018-07-26 13:06 | ED.RN ---
Nursing report given to Arin at [facility]. Told patient will not be leaving [facility] until around 1430. States they are ready for patient whenever.
== END 2018-07-26 13:57 ==
PROVIDERS: Emergency Provider Emergency Medicine
DX: R45.851 Suicidal ideations (principal); F32.9 Major depressive disorder, single episode, unspecified; F15.10 Other stimulant abuse, uncomplicated; F12.10 Cannabis abuse, uncomplicated; Z72.0 Tobacco use
CPT/HCPCS: 80048; 80307; 80320; 84703; 85025; 93005; 99284; G0480

== ENCOUNTER 2018-10-19 19:49 | Emergency (ER) | payer MEDICAID, SELFPAY ==
[2018-07-26 00:42] VITALS: BMI 35.0
[2018-10-19 19:49] VITALS: BP 148/94; PULSE 119; RESP 16; TEMP 37.5; O2SAT 97; BMI 31.8
[2018-10-19 20:15] VITALS: BP 134/88; PULSE 98; RESP 14; O2SAT 98
--- NOTE | 2018-10-19 20:15 | CT_ITS ---
STUDY: CT ABDOMEN AND PELVIS WITHOUT CONTRAST REASON FOR EXAM: Female, 23 years old. Flank pain RADIATION DOSAGE (If Supplied By Facility): CTDIvol = ( 11.67 ) mGy, DLP = ( 623.94 ) mGycm TECHNIQUE: Transaxial images were obtained from the dome of the diaphragm to the symphysis pubis without oral contrast, and without intravenous contrast. Sagittal and coronal images were reconstructed. Individualized dose optimization techniques were used for this CT. COMPARISON: None. FINDINGS: Evaluation of the abdominal viscera is limited in the absence of intravenous contrast. The visualized lung bases are clear. The visualized portions of the heart and pericardium are within normal limits. There are no calcified gallstones present. The liver demonstrates an unremarkable unenhanced appearance. The spleen is normal in size. The pancreas demonstrates an unremarkable unenhanced appearance. The adrenal glands are within normal limits. There are no renal or ureteral stones. There is no hydronephrosis. Normal visualized stomach. There is no bowel obstruction or inflammation. The appendix is visualized and appears normal. The aorta is normal in caliber. There is no abdominal or pelvic free air, free fluid, fluid collection or lymphadenopathy. There are no destructive osseous lesions. CT/Abdomen/Pelvis without Cont IMPRESSION: No acute abdominal or pelvic pathology demonstrated on this noncontrast CT. Electronically Signed: Allen Malhotra, at 22:33 EDT Tel , Service support ,
[2018-10-19 20:27] LABS: Absolute Lymphocyte Count 2.86 X10^3/ul (0.83-4.51); Absolute Neutrophil Count 4.8 X10^3/uL (2.0-7.7); Basophil# 0.02 X10^3/uL; Basophil% 0.2 % (0-1); Eosinophil# 0.09 X10^3/uL; Eosinophils% 1.1 % (0-5); Hematocrit 37.7 % (37-47); Hemoglobin 12.6 g/dl (12.0-15.0); Lymphocyte # 2.86 X10^3/ul (4.0); Lymphocyte % 34.7 % (19-41); Mean Corp Hgb Conc 33.4 g/gl (32-36); Mean Corpuscular Hgb 29.3 pg (27.0-32.0); Mean Corpuscular Volume 87.7 fL (81-99); Mean Platelet Vol. 10.4 fl (6.2-12.0); Monocyte# 0.42 X10^3/uL; Monocyte% 5.1 % (0-10); Neutrophil # 4.84 X10^3/uL (2.7-7.7); Neutrophil % 58.8 % (47-70); Platelet Count 319 K/mm3 (150-450); RBC Distribution Width CV 13.5 % (11.6-14.6); RBC Distribution Width SD 43.2 fl (35.1-43.9); White Blood Count 8.2 K/mm3 (4.4-11.0)
[2018-10-19 20:28] LABS: POSITIVE COUNT NO; POSITIVE DIFFERENTIAL NO; POSITIVE MORPHOLOGY NO
[2018-10-19 20:40] LABS: Anion Gap 6 (5-15); BUN 10 mg/dL (7-18); BUN/Creat Ratio 12.5 RATIO (10-20); Calcium,Total 8.6 mg/dL (8.5-10.1); Chloride 111 mmol/L (98-107); EST Glomerular Filtration Rate 93 mL/min (>60); Est Glom Filt Rate - Afr Amer 113 mL/min (>60); Estimated Creatinine Clearance 93.64 ml/min; Glucose 119 mg/dL (74-106); Potassium 3.7 mmol/L (3.5-5.1); Sodium Level 142 mmol/L (136-145)
[2018-10-19 21:27] LABS: Red Blood Cells-Urine 0 SEEN /hpf (0-5); White Blood Cells 0 SEEN /hpf (0-5)
[2018-10-19 21:43] LABS: Internal QC Validated? YES +Cl - CLEAR BKGD; Pregnancy, Serum, hCG Quali. NEGATIVE Negative
[2018-10-19 21:50] LABS: Color, Urine Yellow (Yellow); Glucose, Dipstick Normal (Normal); Ketone-Dipstick Negative (Negative); Leukocyte Esterase-Dipstick Negative /ul (Negative); Nitrite-Dipstick Negative (Negative); Occult Blood-Urine 10 /ul (Negative); Protein-Dipstick Negative (Negative); Urine Bilirubin Dipstick Negative (Negative); Urine Clarity Clear (Clear); Urine Urobilinogen Normal (Normal); Urine pH 6.5 (5.0 - 8.0)
[2018-10-19 21:57] LABS: Bacteria RARE /hpf (None Seen); Mucous, Urine RARE /hpf (<or=2+); Squamous Epithelial Cells - UA 0-5 SEEN /hpf (5-10)
[2018-10-19 22:24] VITALS: BP 114/76; PULSE 82; RESP 16; TEMP 37; O2SAT 98
--- NOTE | 2018-10-19 23:59 | ED.DEP ---
ED Disposition - Plan for ED Patient: Instructions: ED Flank Pain Uncertain Cause Prescriptions: Naproxen [Naprosyn] 500 mg PO BID PRN #20 tablet Cyclobenzaprine [Flexeril] 10 mg PO TID PRN #20 tablet PRN Reason: Muscle Spasm Referrals: Care Physician,No Primary [Primary Care Provider] - Km Rod MD [NON-STAFF] -
[2018-10-20] MEDS: Ketorolac 60 MG/2 ML Vial IM (00:23)
[2018-10-20 00:25] VITALS: BP 126/80; PULSE 74; RESP 16; O2SAT 98
--- NOTE | 2018-10-20 00:25 | RAD_ITS ---
HISTORY: flank pain and back pain x 2 months COMPARISON: None FINDINGS: XR lumbar spine 3 views Lumbar vertebral show normal height and alignment. No fracture or bony abnormality. Lumbar disc space heights appear preserved. The posterior elements appear intact. No spondylolisthesis. SI joints are preserved. RAD/Lumbar Spine 2 or 3 Views IMPRESSION: Normal lumbar spine. at 0047 Reported and signed by: Mukund Doll MD Electronically Signed: Mukund Doll, at 0:46 EDT Tel , Service support ,
[2018-10-20 01:13] VITALS: BP 132/81; PULSE 78; RESP 16; O2SAT 98
--- NOTE | 2018-10-20 01:56 | ED.VISSUMM ---
- ER Visit Summary Date of Service: 10/19/18 Chief Complaint: Bilateral flank pain History of Present Illness: The patient is a 23 F presenting with back pain. She states this has been ongoing for the past 2 months. She states she has not been able to be evaluated because she was in skilled nursing and has recently been released. She states she has bilateral lower back pain which radiates to her abdomen. She has had dysuria. She has nausea with no vomiting. She denies fever. Denies IV drug use. Denies possibility of . Denies other complaints. Physical Examination: Vitals are stable. Patient is afebrile. Alert no acute distress. HEENT exam is unremarkable. Neck is supple. Lungs are clear and equal bilaterally. Heart is regular rate and rhythm. Abdomen is soft nontender nondistended. No guarding or rebound Back: Bilateral CVA tenderness, no midline tenderness Extremities are unremarkable. Skin is warm and dry. No rash No focal neurologic deficit. Normal strength and sensation Remainder of exam is unremarkable. Emergency Department Course and Treatment: CBC, chemistries unremarkable. Urinalysis unremarkable. hCG negative. CT flank shows no acute process. Lumbar spine x-ray shows no acute process. Patient was given Toradol IM. She is requesting more testing, including ultrasound of her back and MRI. She is given primary care referral and advised to follow-up. She is given prescription for Naprosyn and Flexeril. Advised return to ED if worsening complaints. Disposition: Discharge home Impression: Bilateral flank pain This note was generated with [employer] dictation software. It may contain incorrect words, spelling, and punctuation that were not noted in review of the chart prior to signing ED Disposition - Plan for ED Patient: Disposition: Home or Assisted Living Instructions: ED Flank Pain Uncertain Cause Prescriptions: Naproxen [Naprosyn] 500 mg PO BID PRN #20 tablet Cyclobenzaprine [Flexeril] 10 mg PO TID PRN #20 tablet PRN Reason: Muscle Spasm Referrals: Km Rod MD [NON-STAFF] - Care Physician,No Primary [Primary Care Provider] -
--- NOTE | 2018-10-20 02:00 | ED.DCSUM_ITS ---
- ER Visit Summary Date of Service: 10/19/18 Chief Complaint: Bilateral flank pain History of Present Illness: The patient is a 23 F presenting with back pain. She states this has been ongoing for the past 2 months. She states she has not been able to be evaluated because she was in correction and has recently been released. She states she has bilateral lower back pain which radiates to her abdomen. She has had dysuria. She has nausea with no vomiting. She denies fever. Denies IV drug use. Denies possibility of . Denies other complaints. Physical Examination: Vitals are stable. Patient is afebrile. Alert no acute distress. HEENT exam is unremarkable. Neck is supple. Lungs are clear and equal bilaterally. Heart is regular rate and rhythm. Abdomen is soft nontender nondistended. No guarding or rebound Back: Bilateral CVA tenderness, no midline tenderness Extremities are unremarkable. Skin is warm and dry. No rash No focal neurologic deficit. Normal strength and sensation Remainder of exam is unremarkable. Emergency Department Course and Treatment: CBC, chemistries unremarkable. Urinalysis unremarkable. hCG negative. CT flank shows no acute process. Lumbar spine x-ray shows no acute process. Patient was given Toradol IM. She is requesting more testing, including ultrasound of her back and MRI. She is given primary care referral and advised to follow-up. She is given prescription for Naprosyn and Flexeril. Advised return to ED if worsening complaints. Disposition: Discharge home Impression: Bilateral flank pain This note was generated with [employer] dictation software. It may contain incorrect words, spelling, and punctuation that were not noted in review of the chart prior to signing ED Disposition - Plan for ED Patient: Disposition: Home or Assisted Living Instructions: ED Flank Pain Uncertain Cause Prescriptions: Naproxen [Naprosyn] 500 mg PO BID PRN #20 tablet Cyclobenzaprine [Flexeril] 10 mg PO TID PRN #20 tablet PRN Reason: Muscle Spasm Referrals: Km Rod MD [NON-STAFF] - Care Physician,No Primary [Primary Care Provider] -
== END 2018-10-20 01:37 | disposition home or self-care (01) ==
LOC: ED 20:30
PROVIDERS: Emergency Provider Emergency Medicine
DX: R10.9 Unspecified abdominal pain (principal); Z72.0 Tobacco use
CPT/HCPCS: 72100; 74176; 80048; 81001; 84703; 85025; 96372; 99283; A4216

== ENCOUNTER 2018-11-02 15:56 | Emergency (ER) | payer MEDICAID, SELFPAY ==
[2018-11-02 15:57] VITALS: BP 122/72; PULSE 89; RESP 18; TEMP 36.1; O2SAT 99; BMI 32.5
[2018-11-02 16:19] LABS: Bacteria 0 SEEN /hpf (None Seen); Red Blood Cells-Urine 0 SEEN /hpf (0-5)
--- NOTE | 2018-11-02 16:20 | ED.VISSUMM ---
- ER Visit Summary Date of Service: 11/02/18 Chief Complaint: Short of breath, vaginal discharge History of Present Illness: The patient is a 23 F reports a 2-week history of vaginal discharge and foul odor. She does not know when her last menstrual cycle was. She is also complaining of shortness of breath for the past 2 weeks. She states that her lungs feel tight and she coughs up thick sputum. She has not had fever or chills. Although triage note documents sore throat she denies any throat tightness to me. Physical Examination: Vital signs unremarkable. Patient sitting upright in bed no acute distress. She speaking full sentences. Head neck examination reveals TMs to be clear. She has mild posterior pharyngeal drainage. No tonsillar exudate or enlargement noted. Uvula is midline. Heart is regular rate and rhythm. Lung sounds are clear. Abdomen is soft and nontender. Pelvic examination reveals no external lesions. No obvious discharge at this time. Bimanual examination is within normal limits. Test Results: Urine test is negative. UA, gonorrhea, chlamydia have been sent and pending. Emergency Department Course and Treatment: Patient will be treated with Rocephin and Zithromax. She was advised if her test return positive she will receive a phone call so that her partners can be tested. She will be given prescriptions for Claritin and Mucinex for her URI with congestion. Treatment Plan: [] Disposition: Discharge Impression: 1. Reported vaginal discharge 2. URI with congestion This note was generated with [employer] dictation software. It may contain incorrect words, spelling, and punctuation that were not noted in review of the chart prior to signing ED Disposition - Plan for ED Patient: Disposition: Home or Assisted Living Instructions: ED Upper Resp Infec No Abx Tx, ED Vaginosis Bacterial Prescriptions: Loratadine [Claritin] 10 mg PO DAILY #20 capsule Guaifenesin [Mucinex] 1,200 mg PO BID #10 tbmp.12hr Referrals: Bela Hathaway [STAFF PHYSICIAN] - As Needed
[2018-11-02 16:22] LABS: Color, Urine Yellow (Yellow); Glucose, Dipstick Normal (Normal); Ketone-Dipstick 5 mg/dl (Negative); Leukocyte Esterase-Dipstick 25 /ul (Negative); Nitrite-Dipstick Negative (Negative); Occult Blood-Urine Negative /ul (Negative); Protein-Dipstick Negative (Negative); Specific Gravity, Urine 1.015 (1.002-1.030); Urine Bilirubin Dipstick Negative (Negative); Urine Clarity Cloudy (Clear); Urine Urobilinogen 1 mg/dl (Normal); Urine pH 6.5 (5.0 - 8.0)
[2018-11-02 16:27] LABS: Internal QC Validated? YES +Cl - CLEAR BKGD; Pregnancy, Urine Negative Negative
[2018-11-02 16:47] LABS: Mucous, Urine 1+ /hpf (<or=2+); Squamous Epithelial Cells - UA 0-5 SEEN /hpf (5-10)
[2018-11-02 16:48] LABS: White Blood Cells 0-5 SEEN /hpf (0-5)
[2018-11-02] MEDS: Azithromycin 250 MG Tablet 1000 MG PO (17:00)
[2018-11-02] MEDS: Ceftriaxone 500 MG Vial 250 MG IM (17:00)
[2018-11-02 17:17] VITALS: PULSE 89; RESP 15; O2SAT 97
[2018-11-02 18:01] LABS: Chlamydia Trachomatis by PCR Negative (Negative); Neisserai gonorrhoeae by PCR Negative (Negative); Probe Check PASS; Sample Adequacy Control PASS; Specimen Processing Control PASS
== END 2018-11-02 17:17 | disposition home or self-care (01) ==
PROVIDERS: Emergency Provider Emergency Medicine
DX: J06.9 Acute upper respiratory infection, unspecified (principal); N89.8 Other specified noninflammatory disorders of vagina; Z72.0 Tobacco use
CPT/HCPCS: 81001; 81025; 87491; 87591; 99284

== ENCOUNTER 2018-12-14 21:51 | Emergency (ER) | payer MEDICAID, SELFPAY ==
[2018-12-14 21:52] VITALS: BP 128/70; PULSE 110; RESP 18; TEMP 36.6; O2SAT 97; BMI 30.6
[2018-12-14 22:15] VITALS: PULSE 105; O2SAT 95
[2018-12-14 22:16] VITALS: O2SAT 95
--- NOTE | 2018-12-14 22:17 | ED.RN ---
pt arrived in a taxi with room 18. asked to be placed in the same room, but informed we could not do so. ruddy burrell rn [id number]
--- NOTE | 2018-12-14 22:32 | RAD_ITS ---
STUDY: X-RAY CHEST REASON FOR EXAM: Female, 23 years old. Shortness of breath TECHNIQUE: Frontal and lateral views of the chest. COMPARISON: None. FINDINGS: The lungs are clear and expanded. There is no demonstrated pleural abnormality. Normal size heart. Normal mediastinum and michelle. Normal visualized pulmonary arteries. Normal visualized aortic arch and descending thoracic aorta. There are diffuse degenerative changes of the visualized thoracic spine. Normal visualized ribs, clavicles, and shoulders. There is no demonstrated abnormality of the visualized soft tissue structures of the upper abdomen. RAD/Chest PA and Lateral IMPRESSION: No acute cardiopulmonary disease identified. Electronically Signed: John Mcdaniel, at 23:16 EDT Tel , Service support ,
--- NOTE | 2018-12-14 22:34 | EKG12_ITS ---
Test Reason : CP Blood Pressure : / mmHG Vent. Rate : 107 BPM Atrial Rate : 107 BPM P-R Int : 140 ms QRS Dur : 086 ms QT Int : 342 ms P-R-T Axes : 078 077 055 degrees QTc Int : 456 ms Sinus tachycardia Otherwise normal ECG Confirmed by JUAN BELL ([id number]), photographic editor AGATHA DUMONT ([id number]) on 12/15/2018 1:37:08 PM Referred By: TL Confirmed By:JUAN BELL
--- NOTE | 2018-12-14 22:40 | ED.VIS.GEN ---
History of Present Illness Chief Complaint: Shortness of Breath Informant: Patient Onset: Days - 3 Narrative: Productive sputum 3 days with wheezing. History of asthma. Tobacco history. No sick contacts. No fevers. Chest pain with cough. No vomiting or diarrhea. No recent travel, surgery, or mobilizations. No history of PE or DVT. No inhaler to use. Prior similar symptoms: Yes Past Medical History - Allergies and Home Meds Allergies/Adverse Reactions: Allergies penicillin G Allergy (Mild, Verified 12/14/18 21:59) Hives venom-honey bee [bee venom (honey bee)] Allergy (Verified 12/14/18 21:59) Swelling Primary Care Physician: Care Physician,No Primary [Primary Care Provider] - Smoking Status: Current some day smoker Review of Systems General: Denies: Chills, Fever, Sweats Eyes: Denies: Visual changes - bilaterally, Diplopia ENT: Reports: -. Denies: Rhinorrhea, Sore throat Cardiovascular: Reports: Chest pain. Denies: Palpitations Respiratory: Reports: Dyspnea, Cough, Sputum. Denies: Dyspnea on exertion Gastrointestinal: Denies: Abdominal pain, Nausea, Vomiting, Diarrhea, Melena, Hematochezia Genitourinary: Denies: Dysuria, Hematuria, Frequency Musculoskeletal: Denies: Back pain, Extremity Pain Skin: Denies: Rash, Wounds Neurological: Denies: Headache, Weakness, Numbness Physical Exam Vital Signs/Narrative: Vital Signs Temp Pulse Resp BP Pulse Ox 12/14/18 22:15 105 H 95 12/14/18 21:52 97.8 F 110 H 18 128/70 H 97 Inital Vital Signs reviewed: Yes General: Well nourished, Well developed, No Acute Distress, - - Speaking in full sentences. Head: Normocephalic, Atraumatic Eyes: Perrl, EOMI ENT: Moist mucous membranes, No rhinorrhea Neck: Supple, Nontender Cardiovascular: Regular rate, Regular rhythm, No murmurs, - - Heart rate 99 on the monitor during evaluation. Respiratory: No distress, Chest nontender, Wheezing, - - Diffuse inspiratory expiratory wheezing. Abdomen: Soft, Nontender, Nondistended, Normal bowel sounds Back: Nontender, Normal Inspection Extremities: Nontender, No edema Skin: Normal color, No rash Neurological: Alert, Oriented x3, Cranial nerves II-XII grossly intact, Normal Strength, Normal Sensation Psychological: Normal affect, Normal Mood Diagnostic/Tx/Re-eval Chest X-Ray - ED: 2 View, Read by ED Physician, Read by Radiologist, No Acute Disease - EKG Initial EKG Interpretation: Sinus Rhythm - Sinus 107, no ST or T wave changes. - Medical Decision Making Patient chest pain with cough, EKG sinus tachycardia, diffuse wheezing. Given aerosol treatment steroids chest x-ray negative for reevaluation symptoms improved. Minimal wheezing on exam. Prescriptions for 4 more days of steroids, inhaler all filled at pharmacy here. She will follow-up as an outpatient. Signs and symptoms discussed return. All questions were answered. ED Disposition - Plan for ED Patient: Disposition: Home or Assisted Living Diagnosis: Asthma exacerbation, Viral upper respiratory infection Instructions: URI, Viral w/ Wheezing (Adult), Understanding Asthma Prescriptions: predniSONE tablet 60 mg PO DAILY #12 tablet Albuterol Inhaler [Ventolin Hfa] 1 - 2 puff INHALATION Q4H PRN PRN #1 inhaler PRN Reason: Wheezing Referrals: Care Physician,No Primary [Primary Care Provider] - Berta Barreto [NON-STAFF] - 5-7 Days
[2018-12-14] MEDS: predniSONE 20 MG Tablet 60 MG PO (22:56)
[2018-12-14 23:12] VITALS: PULSE 109; RESP 18
[2018-12-14] MEDS: Albuterol 2.5 MG/3 ML VIAL.NEB. INHALATION (23:12)
[2018-12-14] MEDS: Ipratropium/Albuterol Sulfate 3 ML AMPUL.NEB INHALATION (23:12)
[2018-12-14 23:42] VITALS: PULSE 109; RESP 18; O2SAT 97
== END 2018-12-14 23:43 | disposition home or self-care (01) ==
PROVIDERS: Emergency Provider Emergency Medicine
DX: J06.9 Acute upper respiratory infection, unspecified (principal); J45.901 Unspecified asthma with (acute) exacerbation; F17.200 Nicotine dependence, unspecified, uncomplicated
CPT/HCPCS: 71046; 93005; 94640; 99283

== ENCOUNTER 2019-01-01 08:36 | Emergency (ER) | payer SELFPAY ==
[2019-01-01 08:36] VITALS: BP 98/69; PULSE 104; RESP 18; TEMP 36.6; O2SAT 98; BMI 33.5
--- NOTE | 2019-01-01 10:14 | ED.VIS.GEN ---
History of Present Illness Chief Complaint: Sore Throat Informant: Patient Onset: Yesterday Current Severity: Moderate Maximum Severity: Moderate Narrative: Patient presents with sore throat that started yesterday feels like prior strep throat. She has no fever but she has like a cough, she has odynophagia. She has no shortness of breath. She denies any chest pain. She denies a upper respiratory symptoms. Pain is mild to moderate. Past Medical History - Allergies and Home Meds Allergies/Adverse Reactions: Allergies penicillin G Allergy (Mild, Verified 01/01/19 08:39) Hives venom-honey bee [bee venom (honey bee)] Allergy (Verified 01/01/19 08:39) Swelling Primary Care Physician: Care Physician,No Primary [Primary Care Provider] - Past Medical History: None Smoking Status: Current some day smoker Review of Systems ROS: Unable to Obtain General: Reports: Chills, Fever ENT: Reports: Sore throat Cardiovascular: Denies: Chest pain Respiratory: Denies: Dyspnea Gastrointestinal: Denies: Abdominal pain, Nausea, Vomiting Musculoskeletal: Denies: Myalgias, Neck pain, Back pain Skin: Denies: Rash Neurological: Denies: Headache Physical Exam Vital Signs/Narrative: Vital Signs Temp Pulse Resp BP Pulse Ox 01/01/19 08:36 98 F 104 H 18 98/69 98 General: Well nourished, Well developed ENT: Moist mucous membranes, - - There is bilateral tonsillar enlargement with erythema and bilateral exudates. Normal soft palate normal voice Neck: Supple, No lymphadenopathy Cardiovascular: Regular rate, Regular rhythm Respiratory: No distress Abdomen: Soft Back: Nontender, Normal Inspection Extremities: No edema Skin: Normal color Neurological: Alert, Oriented x3 Diagnostic/Tx/Re-eval - Medical Decision Making Patient is positive for strep, I will treat her. She appears well. I will not give her steroids she has minimal swelling. ED Disposition - Plan for ED Patient: Disposition: Home or Assisted Living Instructions: PHARYNGITIS, Strep (Confirmed) Prescriptions: Azithromycin 250 mg PO DAILY #4 tab Prescription Printed Referrals: Care Physician,No Primary [Primary Care Provider] - 3-5 Days
[2019-01-01] MEDS: Azithromycin 250 MG Tablet 500 MG PO (10:32)
== END 2019-01-01 10:45 | disposition home or self-care (01) ==
PROVIDERS: Emergency Provider Emergency Medicine
DX: J02.0 Streptococcal pharyngitis (principal); F17.200 Nicotine dependence, unspecified, uncomplicated
CPT/HCPCS: 87077; 87880; 99283

== ENCOUNTER 2019-07-19 19:43 | Emergency (ER) | payer MEDICAID, SELFPAY ==
[2019-07-19 19:44] VITALS: BP 122/68; PULSE 130; RESP 18; TEMP 37; O2SAT 98; BMI 33.5
--- NOTE | 2019-07-19 20:24 | CM.ED ---
SOCIAL WORK INFORMANT: DR. CHARLES REASON FOR REFERRAL: SUICIDAL IDEATION/MENTAL HEALTH CHIEF COMPLIANT: PATIENT PRESENTS TO EMERGENCY DEPARTMENT WITH SUICIDAL IDEATION, NO PLAN OR INTENT. PATIENT STATES DEPRESSION HAS INCREASED OVER THE LAST FEW WEEKS AND STATES I SPENT ALL LAST WEEK IN BED. PATIENT STATES TODAY SHE TOLD HER FRIEND, I WANT TO KILL MYSELF. PATIENT ADMITS TO RECENT USE OF METH AND CRACK. MARITAL STATUS: SINGLE LIVING ARRANGEMENTS: PATIENT STATES LEFT HER APARTMENT TODAY BECAUSE I DID NOT FEEL SAFE THERE ANYMORE. PATIENT ARRIVED TO EMERGENCY DEPARTMENT WITH SUITCASE. SUPPORT/RESOURCES: PATIENT STATES GOOD SUPPORT FROM FAMILY AND FRIENDS. EMPLOYMENT HISTORY: PATIENT STATES IS UNEMPLOYED. MENTAL HEALTH TREATMENT/HISTORY: PATIENT REPORTS HISTORY OF ANXIETY AND DEPRESSION. PATIENT STATES IS NOT FOLLOWING WITH ANY COUNSELING SERVICES AND NOT TAKING ANY MEDICATION. SUBSTANCE ABUSE HISTORY: PATIENT REPORTS TO HISTORY OF SUBSTANCE ABUSE. PATIENT REPORTS LAST USE OF METH AND CRACK COCAINE WAS OVER THE WEEKEND. MENTAL STATUS EXAM: ORIENTATION- A&OX3 MEMORY- FAIR APPEARANCE/GENERAL BEHAVIOR: DISHEVELED, CALM MOOD/AFFECT: DEPRESSED, ANXIOUS COMMUNICATION PATTERN: RESPONDS TO QUESTIONS THOUGHT PROCESS: APPROPRIATE JUDGMENT: POOR RISK TO SELF/OTHERS: SUICIDAL: PATIENT REPORTS SUICIDAL IDEATION WITH NO PLAN OR INTENT. PATIENT STATES I JUST NEED HELP. I JUST FEEL SO ILL. I CAN'T STOP CRYING. I NEED HELP. HOMICIDAL: PATIENT DENIES ANY HOMICIDAL IDEATION. ASSESSMENT: MET WITH PATIENT AND FRIEND IN ROOM. PATIENT REQUESTS FRIEND REMAIN PRESENT FOR ASSESSMENT. INTRODUCED ROLE AND REASON FOR REFERRAL. PATIENT STATES INCREASE IN DEPRESSION AND SUICIDAL IDEATION. PATIENT DENIES ANY PLAN OR INTENT. PATIENT STATES I HAVE BEEN CRYING ALL DAY AND TOLD MY FRIEND I WANT TO KILL MYSELF. FRIEND IN ROOM REPORTS HAS CONCERNS FOR PATIENT'S SAFETY AND FEELS PATIENT WOULD BENEFIT FROM INPATIENT HOSPITALIZATION. PATIENT IN AGREEMENT AND CONTINUED STATING, I JUST NEED HELP. I FEEL SO ILL. PATIENT TEARFUL. PATIENT ADMITTED TO RECENT USE OF METH AND CRACK COCAINE. PATIENT STATES DRUG USE JUST MAKES THE DEPRESSION WORSE. I WANT TO STOP. EMOTIONAL SUPPORT AND ENCOURAGEMENT PROVIDED. COLLABORATION WITH DR. CHARLES. PLAN FOR INPATIENT HOSPITALIZATION. DISCUSSED SITTER PROTOCOL AND SUICIDE RISK ASSESSMENT. SITTER NOT ORDERED AT THIS TIME. PLAN: REFERRAL FOR INPATIENT PSYCH HOSPITALIZATION. Roxana RAY, ROTARY SURFACE GRINDER, MANAGING DIRECTOR.
[2019-07-19 20:52] VITALS: RESP 16
[2019-07-19 21:07] VITALS: RESP 16
[2019-07-19 21:13] LABS: Absolute Lymphocyte Count 3.39 X10^3/uL (0.83-4.51); Absolute Neutrophil Count 5.2 X10^3/uL (2.0-7.7); Basophil# 0.06 X10^3/uL; Basophil% 0.6 % (0-1); Eosinophil# 0.43 X10^3/uL; Eosinophils% 4.3 % (0-5); Hematocrit 39.8 % (37-47); Hemoglobin 13.1 g/dL (12.0-15.0); Lymphocyte # 3.39 X10^3/ul (4.0); Lymphocyte % 34.1 % (19-41); Mean Corp Hgb Conc 32.9 g/dL (32-36); Mean Corpuscular Hgb 28.9 pg (27.0-32.0); Mean Corpuscular Volume 87.7 fL (81-99); Mean Platelet Vol. 10.5 fl (6.2-12.0); Monocyte# 0.85 X10^3/uL; Monocyte% 8.5 % (0-10); NRBC Flagged by Analyzer 0 % (0-5); Neutrophil # 5.19 X10^3/uL (2.7-7.7); Neutrophil % 52.2 % (47-70); Platelet Count 336 K/mm3 (150-450); RBC Distribution Width CV 12.4 % (11.6-14.6); RBC Distribution Width SD 39.7 fl (35.1-43.9); Red Blood Count 4.54 M/mm3 (4.2-5.4)
[2019-07-19 21:36] LABS: Alcohol, Blood (Medical)-Serum < 3.0 mg/dL; Anion Gap 6 (5-15); BUN 15 mg/dL (7-18); BUN/Creat Ratio 19.5 RATIO (10-20); Calcium,Total 9.1 mg/dL (8.5-10.1); Chloride 109 mmol/L (98-107); Creatinine, Serum 0.77 mg/dL (0.55-1.02); EST Glomerular Filtration Rate 97 mL/min (>60); Est Glom Filt Rate - Afr Amer 117 mL/min (>60); Estimated Creatinine Clearance 96.45 ml/min; Glucose 105 mg/dL (74-106); Potassium 3.2 mmol/L (3.5-5.1); Sodium Level 139 mmol/L (136-145)
[2019-07-19 21:46] LABS: Internal QC Validated? YES +Cl - CLEAR BKGD
[2019-07-19 21:47] LABS: Pregnancy, Serum, hCG Quali. NEGATIVE Negative
[2019-07-19 21:52] LABS: Amphetamine Urine VISTA POSITIVE (<1000 ng/mL); Barbiturate Urine VISTA NEGATIVE (< 200 ng/mL); Benzodiazepine Urine VISTA NEGATIVE (< 200 ng/mL); Cocaine Urine VISTA POSITIVE (< 300 ng/mL); Ecstacy Urine VISTA POSITIVE (< 500 ng/mL); Methadone Urine VISTA NEGATIVE (< 300 ng/mL); PCP Urine VISTA NEGATIVE (< 25 ng/mL); THC Urine VISTA POSITIVE (< 50 ng/mL); Vista UDS pH Range 6
--- NOTE | 2019-07-19 21:59 | ED.VIS.PSYCH ---
History of Present Illness Chief Complaint: Suicidal Informant: Patient Onset: Days Context: Gradual Onset Timing: Continuous Associated Symptoms: Depressed, Hopelessness, Suicidal Thoughts. Negative for: Visual Hallucinations, Auditory Hallucinations Specific plan (suicidal thought): No plan Narrative: Patient is a 24-year-old female with history of suicidal thoughts presented with worsening depression and suicidal thoughts. Patient states she does not want to be alive anymore. She has been crying all day. She notes she had some depression in the past but never been treated however she has had worsening suicidal thoughts for the past week. She denies any homicidal ideations or hallucinations. Patient states she does not feel safe at home. She lives home alone. She states she has a 5-year-old who comes to the house and sees a ghost. Patient states she believes him. The 5-year-old lives with the father and is with him now. She has a 5-year-old son feels safe at his father's house. Patient states she was using crack cocaine and methamphetamines today which made all of her symptoms worse. Her friend took her to the emergency room today. Patient states she would like help and would like a psychiatric admission. Past Medical History - Allergies and Home Meds Allergies/Adverse Reactions: Allergies penicillin G Allergy (Mild, Verified 07/19/19 19:43) Hives venom-honey bee [bee venom (honey bee)] Allergy (Verified 07/19/19 19:43) Swelling Primary Care Physician: Care Physician,No Primary [Primary Care Provider] - Past Medical History: None Surgical History: no surgical history Smoking Status: Current every day smoker Review of Systems General: Denies: Chills, Fever, Sweats Eyes: Denies: Visual changes - bilaterally, Diplopia ENT: Denies: Rhinorrhea, Sore throat Cardiovascular: Denies: Chest pain, Palpitations Respiratory: Denies: Dyspnea, Cough, Dyspnea on exertion Gastrointestinal: Denies: Abdominal pain, Nausea, Vomiting, Diarrhea, Melena, Hematochezia Genitourinary: Denies: Dysuria, Hematuria, Frequency Musculoskeletal: Denies: Back pain, Extremity Pain Skin: Denies: Rash, Wounds Neurological: Denies: Headache, Weakness, Numbness Psych: Reports: Depression, Anxiety, Suicidal ideations. Denies: Suicidal thoughts - No plan Physical Exam Vital Signs/Narrative: Vital Signs Temp Pulse Resp BP Pulse Ox 07/19/19 21:07 16 07/19/19 20:52 16 07/19/19 19:44 98.6 F 130 H 18 122/68 H 98 Inital Vital Signs reviewed: Yes General: Well nourished, Well developed Head: Normocephalic, Atraumatic Eyes: Perrl, EOMI ENT: Moist mucous membranes, No rhinorrhea Neck: Supple, Nontender Cardiovascular: Regular rate, Regular rhythm, No murmurs Respiratory: No distress, CTA bilaterally, Chest nontender Abdomen: Soft, Nontender, Nondistended, Normal bowel sounds Back: Nontender, Normal Inspection Extremities: Nontender, No Edema Skin: Normal color, No rash Neurological: Alert, Oriented x3, Cranial nerves II-XII grossly intact, Normal Strength, Normal Sensation Psych: Normal Speech Pattern, Depressed, Suicidal thoughts, - - Crying during exam. Negative for: Homicidal thoughts, Hallucinations Diagnostic/Tx/Re-eval Laboratory Data 07/19/19 07/19/19 07/19/19 20:47 21:04 21:04 WBC 10.0 RBC 4.54 Hgb 13.1 Hct 39.8 MCV 87.7 MCH 28.9 MCHC 32.9 RDW Std Deviation 39.7 RDW Coeff of Jose 12.4 Plt Count 336 MPV 10.5 Immature Gran % (Auto) 0.300 Neut % (Auto) 52.2 Lymph % (Auto) 34.1 [place] % (Auto) 8.5 Eos % (Auto) 4.3 Baso % (Auto) 0.6 Absolute Neuts (auto) 5.2 Absolute Lymphs (auto) 3.39 Nucleated RBC % 0 Sodium 139 Potassium 3.2 L Chloride 109 H Carbon Dioxide 24.0 Anion Gap 6 BUN 15 Creatinine 0.77 Estim Creat Clear Calc 96.45 Est GFR (MDRD) Af Amer 117 Est GFR (MDRD) Non-Af 97 BUN/Creatinine Ratio 19.5 Glucose 105 Calcium 9.1 Serum , Qual Urine Opiates Screen NEGATIVE Urine Methadone Screen NEGATIVE Ur Barbiturates Screen NEGATIVE Ur Phencyclidine Scrn NEGATIVE Ur Amphetamines Screen POSITIVE H U Methamphetamin-MDMA POSITIVE H U Benzodiazepines Scrn NEGATIVE Urine Cocaine Screen POSITIVE H U Cannabinoids Screen POSITIVE H Ur Drug Screen Comment Ethyl Alcohol 07/19/19 07/19/19 21:04 21:04 WBC RBC Hgb Hct MCV MCH MCHC RDW Std Deviation RDW Coeff of Jose Plt Count MPV Immature Gran % (Auto) Neut % (Auto) Lymph % (Auto) [place] % (Auto) Eos % (Auto) Baso % (Auto) Absolute Neuts (auto) Absolute Lymphs (auto) Nucleated RBC % Sodium Potassium Chloride Carbon Dioxide Anion Gap BUN Creatinine Estim Creat Clear Calc Est GFR (MDRD) Af Amer Est GFR (MDRD) Non-Af BUN/Creatinine Ratio Glucose Calcium Serum , Qual NEGATIVE Urine Opiates Screen Urine Methadone Screen Ur Barbiturates Screen Ur Phencyclidine Scrn Ur Amphetamines Screen U Methamphetamin-MDMA U Benzodiazepines Scrn Urine Cocaine Screen U Cannabinoids Screen Ur Drug Screen Comment Ethyl Alcohol < 3.0 Patient is evaluated for worsening depression and thoughts of suicide. She states she does not want to be alive anymore. She does not have a plan. She does want help. Patient's drug test is positive for multiple substances but she is otherwise medically cleared. I do think patient would benefit from inpatient psychiatric care. She is accepted to [facility] by . Patient is stable in the emergency room. She is given a dose of Zofran for nausea. ED Disposition - Plan for ED Patient: Disposition: Psychiatric Hospital or Unit Diagnosis: Depression, Suicidal thoughts Referrals: Care Physician,No Primary [Primary Care Provider] -
--- NOTE | 2019-07-19 22:10 | CM.ED ---
SOCIAL WORK REFERRAL FAXED AND CALLED TO [facility]. AWAITING ACCEPTANCE. Roxana RAY, SEXUAL ASSAULT RESPONSE COORDINATOR, PUPPY TRAINER.
[2019-07-19] MEDS: Ondansetron ODT 4 MG Tablet PO (22:38)
[2019-07-19] MEDS: Acetaminophen 500 MG Tablet 1000 MG PO (22:38)
[2019-07-19 22:39] VITALS: RESP 16
--- NOTE | 2019-07-19 22:54 | CM.ED ---
SOCIAL WORK CALL FROM [facility]. PATIENT ACCEPTED BY DR. PORRAS TO [facility]. NURSE TO CALL REPORT TO . NATIONAL INSURANCE OFFICER TO SET UP TRANSPORT. Roxana RAY, DOUGH MAKER, TAR AND AMMONIA PUMP OPERATOR.
[2019-07-19 23:13] VITALS: RESP 18
[2019-07-20 00:38] VITALS: BP 118/92; PULSE 98; RESP 16; O2SAT 100
== END 2019-07-20 00:40 ==
PROVIDERS: Emergency Provider Emergency Medicine
DX: F32.9 Major depressive disorder, single episode, unspecified (principal); R45.851 Suicidal ideations; F17.200 Nicotine dependence, unspecified, uncomplicated
CPT/HCPCS: 80048; 80307; 80320; 84703; 85025; 99284; G0480

== ENCOUNTER 2019-10-09 04:59 | Emergency (ER) | payer MEDICAID, SELFPAY ==
[2019-09-20 11:47] VITALS: BMI 33.5
[2019-10-09 05:01] VITALS: BP 153/113; PULSE 110; RESP 18; TEMP 36.7; O2SAT 99; BMI 35.2
--- NOTE | 2019-10-09 05:13 | ED.VISSUMM ---
- ER Visit Summary Date of Service: 10/09/19 Chief Complaint: Vaginal discharge History of Present Illness: The patient is a 24 F no sniffing past medical or surgical history. History of drug abuse. Patient states she is has a vaginal discharge that is malodorous. She believes she has may have had bacterial vaginosis before. She denies ever having an STD. I checked old labs and her gonorrhea and chlamydia in the past have been negative. She denies any vaginal bleeding. No fever. No abdominal pain. No dysuria. She is G2, P2 Ab0. She denies being currently. Her last menstrual period was several days ago. Physical Examination: Well-appearing 24-year-old female. Vital signs are stable afebrile. H EENT exam unremarkable. Lungs are clear to auscultation. Heart is regular rhythm no murmur. Abdomen is soft and nontender. Patient is moving all 4 extremities. No edema. Neurologically she is awake and alert. Walking about the room. Patient was offered a pelvic exam and deferred. Test Results: Patient did not want any testing. Emergency Department Course and Treatment: History is consistent with possible bacterial vaginosis. Patient does not want a pelvic exam. She wants a prescription and to be discharged. Treatment Plan: Patient be treated for possible bacterial vaginosis. She understands that a pelvic exam we may not have an accurate diagnosis. She will be placed on Flagyl 500 twice daily for 1 week. Instructed not to drink alcohol. Follow-up with a neurosurgical physician assistant. Disposition: Discharge Impression: Acute vaginal discharge treated as bacterial vaginosis This note was generated with [employer] dictation software. It may contain incorrect words, spelling, and punctuation that were not noted in review of the chart prior to signing ED Disposition - Plan for ED Patient: Referrals: Care Physician,No Primary [Primary Care Provider] -
--- NOTE | 2019-10-09 05:16 | ED.DEP ---
ED Disposition - Plan for ED Patient: Disposition: Home or Assisted Living Instructions: Vaginal Infection: Bacterial Vaginosis Prescriptions: Metronidazole [Flagyl] 500 mg PO BID 7 Days #14 tab Prescription Printed Referrals: Shae Douglas MD [STAFF PHYSICIAN] - 3-5 Days if not improving Additional Instructions: If you are not improving and to follow-up with a local SENIOR CONTRACTS ADMINISTRATOR. Dr. Shae Fall is on-call [facility] and you can call her office to be seen in follow-up. You will be prescribed the antibiotic Flagyl to be taken twice a day for 1 week. Do not drink any alcohol while using this medication because it will make you very sick.
== END 2019-10-09 05:33 | disposition home or self-care (01) ==
LOC: ED 05:30
PROVIDERS: Emergency Provider Emergency Medicine
DX: N89.8 Other specified noninflammatory disorders of vagina (principal); Z72.0 Tobacco use
CPT/HCPCS: 99282

== ENCOUNTER 2020-04-29 19:29 | Emergency (ER) | payer MEDICAID, SELFPAY ==
[2020-04-29 19:30] VITALS: BP 127/81; PULSE 116; RESP 16; TEMP 35.7; O2SAT 99; BMI 36.3
--- NOTE | 2020-04-29 20:23 | ED.DCSUM_ITS ---
History of Present Illness Chief Complaint: Asthma Detail of Chief Complaint: Out of medication x1 week Informant: Patient Onset: Days, Weeks Context: Sudden Onset Timing: Intermittent Quality: Shortness of breath, clear rhinorrhea and headache Location: Respiratory HEENT Current Severity: Mild Maximum Severity: Moderate Worsened by: Nothing specific Relieved by: Nothing Associated Symptoms: No constitutional symptoms Narrative: Patient is a 25-year-old woman who is a smoker. When asked how much she smokes she responded I am quitting . She would not give an amount. Patient asked why I was asking where her head hurts. I informed her this would make a difference as far as treatment and testing. She states she has a mild headache and would like something for headache. She does report clear nasal congestion. She does have history of allergies. She demanded medication to alleviate her congestion and specifically something that would work immediately. She was informed there is nothing that will work immediately. She does have a nonproductive cough. She does report wheezing. She denies history of VTE. She has no risk factors for VTE. She denies GI symptoms. She has had no contact with anyone suspected of having Covid or diagnosed with Covid. Prior similar symptoms: Yes Recent Illness/Hospitalization: No - Past Medical History (1) Asthma due to seasonal allergies Status: Acute Past Medical History - Allergies and Home Meds Allergies/Adverse Reactions: Allergies penicillin G Allergy (Mild, Verified 04/29/20 19:30) Hives venom-honey bee [bee venom (honey bee)] Allergy (Verified 04/29/20 19:30) Swelling Primary Care Physician: Care Physician,No Primary [Primary Care Provider] - Prior records reviewed: Yes Surgical History: no surgical history Lives: Alone Smoking Status: Current some day smoker Alcohol: Rare Drugs: None Review of Systems General: Denies: Chills, Fever, Malaise, Subjective, Sweats Eyes: Denies: Visual changes - bilaterally, Blurred Vision - bilaterally ENT: Reports: Rhinorrhea. Denies: Bilateral ear pain, Sore throat Cardiovascular: Denies: Chest pain, Palpitations Respiratory: Reports: Dyspnea. Denies: Cough, Sputum, Dyspnea on exertion Gastrointestinal: Denies: Abdominal pain, Nausea, Vomiting, Diarrhea, Constipation Musculoskeletal: Denies: Myalgias, Arthralgias, Neck pain Skin: Denies: Rash Neurological: Reports: Headache. Denies: Weakness, Parasthesia, Numbness Endocrine: Denies: Polyuria, Polydipsia Hematologic: Denies: Easy bruising, Easy bleeding Allergy: Denies: Uticaria, Swelling of the mouth, Swelling of the tongue Physical Exam Vital Signs/Narrative: Vital Signs Temp Pulse Resp BP Pulse Ox 04/29/20 19:30 96.3 F L 116 H 16 127/81 H 99 Inital Vital Signs reviewed: Yes General: Well nourished, Well developed, Obese, No Acute Distress Head: Normocephalic, Atraumatic Eyes: Perrl, EOMI. Negative for: Pale conjunctiva, Scleral icterus ENT: Moist mucous membranes, Nasal congestion. Negative for: No rhinorrhea, Sinus tenderness Neck: Supple, Nontender, No lymphadenopathy, No JVD, - Cardiovascular: Regular rhythm, No murmurs, Normal S1, Normal S2, Tachycardia Respiratory: No distress, CTA bilaterally, Chest nontender Abdomen: Soft, Nontender, Nondistended, Normal bowel sounds Rectal: Deferred Back: Nontender, Normal Inspection Extremities: Nontender, No edema Skin: Normal color, No rash Neurological: Alert, Oriented x3, Cranial nerves II-XII grossly intact, Normal Strength Psychological: Depressed, Agitated Diagnostic/Tx/Re-eval - Medical Decision Making Patient was dispensed an albuterol inhaler. She was given a prescription for Flonase. He was given Tylenol for headache. She was given an albuterol MDI since pharmacies are closed. ED Disposition - Plan for ED Patient: Disposition: Home or Assisted Living Diagnosis: Allergic rhinitis, Asthma, Generalized headache Prescriptions: Fluticasone 0.05% [Flonase Nasal [place]] 1 spray NASAL BID #1 bottle Transmission Status: Pending to [facility] Referrals: Care Physician,No Primary [Primary Care Provider] - Doctor,Your [STAFF PHYSICIAN] - 1 Week if not improving
[2020-04-29] MEDS: Acetaminophen 325 MG Tablet 650 MG PO (20:37)
[2020-04-29 20:39] VITALS: PULSE 101; RESP 15; O2SAT 98
== END 2020-04-29 20:40 | disposition home or self-care (01) ==
PROVIDERS: Emergency Provider Emergency Medicine
DX: J45.909 Unspecified asthma, uncomplicated (principal); R51.9 Headache, unspecified; F17.200 Nicotine dependence, unspecified, uncomplicated; E66.9 Obesity, unspecified
CPT/HCPCS: 99282

== ENCOUNTER 2020-04-30 04:43 | Emergency (ER) | payer MEDICAID, SELFPAY ==
[2020-04-29 19:30] VITALS: BMI 36.3
[2020-04-30 04:43] VITALS: BP 133/86; PULSE 98; RESP 16; TEMP 36.9; O2SAT 100; BMI 36.3
[2020-04-30] MEDS: Acetaminophen 500 MG Tablet 1000 MG PO (04:57)
--- NOTE | 2020-04-30 04:57 | ED.DCSUM_ITS ---
- ER Visit Summary Date of Service: 04/30/20 Chief Complaint: Abdominal pain History of Present Illness: The patient is a 25 F presenting with abdominal pain. She states this started recently, she is not willing to provide further history. She states she was walking tonight and started having lower abdominal pain. She states she is currently without a place to stay and has been walking around. She was seen in the ED earlier tonight because she was out of her asthma medications. She denies nausea or vomiting. Denies diarrhea. Denies urinary complaints. Denies vaginal bleeding or discharge. She does not recall her last period. Denies fever. Denies known exposure to Covid. She admits to drinking wine tonight. Physical Examination: Vitals are stable. Patient is afebrile. Alert no acute distress. HEENT exam is unremarkable. Neck is supple. Lungs are clear and equal bilaterally. Heart is regular rate and rhythm. Abdomen is soft obese nontender. No guarding or rebound Back: nontender Extremities are unremarkable. Skin is warm and dry. No focal neurologic deficit. Normal strength and sensation. Remainder of exam is unremarkable. Emergency Department Course and Treatment: Patient was given Tylenol. Urinalysis unremarkable other than ketones. Patient was able to drink water in the emergency department. She initially stated that she was unable to walk but has been walking in the ED without difficulty. She is requesting x-ray. Pelvic x-ray shows no acute process. Abdominal xray shows nonobstructive bowel gas pattern. No acute abdominal disease identified. She is given Dr. Witt mason tender restoration labor for no doctor for follow-up. Advised return to the ED for worsening complaints. Disposition: Discharge home Impression: Nonspecific abdominal pain This note was generated with [employer] dictation software. It may contain incorrect words, spelling, and punctuation that were not noted in review of the chart prior to signing ED Disposition - Plan for ED Patient: Instructions: ED Abdominal Pain Unkn Cause Fem Referrals: Pete Witt MD [STAFF PHYSICIAN] -
[2020-04-30 05:09] LABS: Bacteria 0 SEEN /hpf (None Seen); Color, Urine Yellow (Yellow); Glucose, Dipstick Normal (Normal); Leukocyte Esterase-Dipstick Negative /ul (Negative); Mucous, Urine 0 SEEN /hpf (<or=2+); Nitrite-Dipstick Negative (Negative); Occult Blood-Urine Negative /ul (Negative); Protein-Dipstick Negative (Negative); Red Blood Cells-Urine 0 SEEN /hpf (0-5); Urine Bilirubin Dipstick Negative (Negative); Urine Clarity Clear (Clear); Urine Urobilinogen Normal (Normal); Urine pH 6.5 (5.0 - 8.0); White Blood Cells 0 SEEN /hpf (0-5)
[2020-04-30 05:11] LABS: Internal QC Validated? YES +Cl - CLEAR BKGD; Ketone-Dipstick 150 mg/dl (Negative); Pregnancy, Urine Negative Negative
[2020-04-30 05:14] LABS: Squamous Epithelial Cells - UA 0-5 SEEN /hpf (5-10)
--- NOTE | 2020-04-30 05:22 | RAD_ITS ---
HISTORY: BILAT HIP PAIN NKI EXAMINATION/TECHNIQUE: XR Pelvis 1 View: COMPARISON: CT abdomen and pelvis 10/19/2018 FINDINGS: No fracture or bony abnormality. The sacroiliac and hip joints appear preserved. As visualized, the soft tissues are negative. RAD/Pelvis 1 or 2 Views IMPRESSION: Normal exam, AP pelvis. at 0545 Reported and signed by: Mukund Doll MD Electronically Signed: Mukund Doll, at 5:44 EST Tel , Service support ,
--- NOTE | 2020-04-30 05:39 | ED.DEP ---
ED Disposition - Plan for ED Patient: Instructions: ED Abdominal Pain Unkn Cause Fem Referrals: Pete Witt MD [STAFF PHYSICIAN] -
--- NOTE | 2020-04-30 05:48 | RAD_ITS ---
HISTORY: Nonspecific abdominal pain pain and the patient would not provide a more detailed history. EXAMINATION/TECHNIQUE: XR Abdomen 2 Views COMPARISON: None FINDINGS: Clothing artifact. No bowel obstruction. The colon is nondilated and shows scattered stool content. The small bowel is nondistended. No soft tissue mass, organomegaly, or suspicious calcifications. RAD/Abdomen Single View (Portable) IMPRESSION: Nonobstructive bowel gas pattern. No acute abdominal disease identified. at 0640 Reported and signed by: Mukund Doll MD Electronically Signed: Mukund Dlol, at 6:39 EST Tel , Service support ,
--- NOTE | 2020-04-30 07:16 | ED.RN ---
PATIENT GIVEN DISCHARGE PAPERWORK AND REFUSED TO ACCEPT PAPERWORK. PATIENT REFUSED NURSE TO TAKE VITAL SIGNS, PATIENT UNABLE WITH STAFF BECAUSE NO DX COULD BE FOUND. ATTEMPTED TO GIVE DISCHARGE INSTRUCTIONS PATIENT REFUSED ANY TEACHING. PATIENT DISCHARGED AT THIS TIME
== END 2020-04-30 07:24 | disposition home or self-care (01) ==
LOC: ED 05:05
PROVIDERS: Emergency Provider Emergency Medicine
DX: R10.30 Lower abdominal pain, unspecified (principal); Z72.0 Tobacco use
CPT/HCPCS: 72170; 74018; 81001; 81025; 99284

== ENCOUNTER → 2020-10-07 | Outpatient (REF) | payer MEDICAID, SELFPAY | END | disposition home or self-care (01) | LOC: LABSPEC 11:07 | PROVIDERS: Visit Provider Registered Nurse | DX: R52 Pain, unspecified (principal) | CPT/HCPCS: 87086; 87088 ==

== ENCOUNTER → 2020-10-09 | Outpatient (CLI) | payer MEDICAID, SELFPAY | END | disposition home or self-care (01) | PROVIDERS: Referring Provider Registered Nurse; Visit Provider Registered Nurse | DX: R30.0 Dysuria (principal) | CPT/HCPCS: 87086; 87088 ==

== ENCOUNTER → 2021-02-13 14:15 | Outpatient (CLI) | payer MEDICAID, SELFPAY ==
[2021-02-13 14:51] LABS: Absolute Lymphocyte Count 3.02 X10^3/uL (0.83-4.51); Basophil# 0.06 X10^3/uL; Basophil% 0.5 % (0-1); Eosinophil# 0.44 X10^3/uL; Eosinophils% 3.5 % (0-5); Hematocrit 41.9 % (37-47); Hemoglobin 13.5 g/dL (12.0-15.0); Lymphocyte # 3.02 X10^3/ul (0.83-4.51); Lymphocyte % 24.1 % (19-41); Mean Corp Hgb Conc 32.2 g/dL (32-36); Mean Corpuscular Hgb 29.2 pg (27.0-32.0); Mean Corpuscular Volume 90.5 fL (81-99); Mean Platelet Vol. 10.3 fl (6.2-12.0); Monocyte# 0.93 X10^3/uL; Monocyte% 7.4 % (0-10); NRBC Flagged by Analyzer 0 % (0-5); Neutrophil # 8.01 X10^3/uL (2.7-7.7); Neutrophil % 64.1 % (47-70); Platelet Count 389 K/mm3 (150-450); RBC Distribution Width CV 12.7 % (11.6-14.6); RBC Distribution Width SD 42.3 fl (35.1-43.9); Red Blood Count 4.63 M/mm3 (4.2-5.4); White Blood Count 12.5 K/mm3 (4.4-11.0)
[2021-02-13 15:19] LABS: ALB/GLOB Ratio 0.9 RATIO (0.9-2.4); AST(SGOT) 22 U/L (15-37); Alanine Aminotransfer ALT/SGPT 39 U/L (13-56); Albumin, Serum 3.5 g/dL (3.2-5.0); Alkaline Phosphatase 70 U/L (45-117); Anion Gap 4 (5-15); BUN 13 mg/dL (7-18); BUN/Creat Ratio 17.1 RATIO (10-20); Calcium,Total 8.8 mg/dL (8.5-10.1); Chloride 108 mmol/L (98-107); Cholesterol 118 mg/dL (200); Creatinine, Serum 0.76 mg/dL (0.55-1.02); EST Glomerular Filtration Rate 97 mL/min (>60); Est Glom Filt Rate - Afr Amer 117 mL/min (>60); Globulin 3.7 g/dL (2.2-4.2); Glucose 93 mg/dL (74-106); High Density Lipoprotein 40 mg/dL; Potassium 3.9 mmol/L (3.5-5.1); Protein, Total 7.2 g/dL (6.4-8.2); Sodium Level 139 mmol/L (136-145); Triglycerides 221 mg/dL; Very Low Density Lipoprotein 44 mg/dL (5-40)
== END ==
PROVIDERS: PCP Internal Medicine; Referring Provider Internal Medicine; Visit Provider Internal Medicine
DX: J45.909 Unspecified asthma, uncomplicated (principal); E66.01 Morbid (severe) obesity due to excess calories
CPT/HCPCS: 36415; 80053; 80061; 85025

== ENCOUNTER 2021-04-10 14:10 | Emergency (ER) | payer MEDICAID, SELFPAY ==
[2021-04-10 14:11] VITALS: BP 120/78; PULSE 91; RESP 15; TEMP 36.4; O2SAT 97; BMI 41.8
--- NOTE | 2021-04-10 14:35 | EDS_ITS ---
HPI History of Present Illness Chief Complaint: Rash Informant: patient Onset/Context/Timing Onset: Month(s) Context: Gradual Onset Timing: Continuous Current Severity: Mild Maximum Severity: Mild Narrative Narrative: 26-year-old female says she has had a rash now for months. States that is all over. States it itches. She has no idea what specifically caused it. She is on no prescription medications other than an inhaler for asthma. She denies any swelling of her lips or tongue. She denies any trouble breathing with it. She is never had this before the last few months. Prior similar symptoms: Yes Recent Illness/Hospitalization: No [facility] Medical History Asthma Morbid obesity Obesity (BMI 30-39.9) Seasonal allergies Vaginal discharge Home Medications etonogestrel 68 mg SQ DAILY 04/30/20 [History Last Taken Unknown] albuterol sulfate 90 mcg/actuation aerosol inhaler 1 inh INHALATION Q6H PRN #8.5 g 02/13/21 [Rx Last Taken Unknown] loratadine 10 mg tablet 10 mg PO DAILY #90 tab 02/13/21 [Rx Last Taken Unknown] fluticasone propionate 44 mcg/actuation HFA aerosol inhaler 2 inh INHALATION BID 90 Days #10.6 g 02/18/21 [Rx Last Taken Unknown] ibuprofen 800 mg tablet 800 mg PO BID #60 tab 02/18/21 [Rx Last Taken Unknown] diphenhydramine HCl [Benadryl Allergy] 25 mg PO QHS PRN 5 Days #10 tab 04/10/21 [Rx Last Taken Unknown] prednisone 40 mg PO DAILY #14 tab 04/10/21 [Rx Last Taken Unknown] Allergy/AdvReac Type Severity Reaction Status Date / Time penicillin G Allergy Mild Hives Verified 04/10/21 14:11 venom-honey bee Allergy Swelling Verified 04/10/21 14:11 [bee venom (honey bee)] Family History Grandmother Asthma Arthritis Surgical History History of wisdom tooth extraction Social History Smoking Status: Current some day smoker tobacco type: cigarettes alcohol intake: never substance use type: does not use what type of physical activity do you participate in: walking frequency: 5-6 times per week ROS ROS ED ROS Narrative Rash and itching. Review of Systems ROS Unobtainable: Denies due to encephalopathy Constitutional Constitutional ED: Denies chills or fever(s) Eyes Eyes: Denies change in vision ENT ENT ED: Denies ear pain or sore throat Cardiovascular Cardiovascular: Denies chest pain Respiratory/Chest Respiratory/Chest: Denies cough or dyspnea Gastrointestinal Gastrointestinal: Denies abdominal pain, diarrhea, nausea or vomiting Genitourinary Genitourinary ED: Denies dysuria or hematuria Musculoskeletal Musculoskeletal: Denies myalgias Integumentary Reports rash Neurologic Neurologic: Denies headache(s) Psychiatric Psychiatric: Denies depression Endocrine Endocrinology: Denies polyuria Allergic/Immunologic Allergic/Immunologic ED: Denies urticaria EXAM Physical Exam Narrative Exam Narrative: 26-year-old female no acute distress vital signs stable afebrile. She has a fine rash to blanches all over. Consistent with allergic reaction. There is no secondary infection. There is no hives. There is no petechiae purpura. No breakdown of the skin. Otherwise heart lung abdominal exams are unremarkable. Const Vital Signs: 04/10/21 14:11 Temperature 97.6 F L Temperature Source Temporal Pulse Rate 91 Respiratory Rate 15 Blood Pressure 120/78 Blood Pressure Mean 92 Pulse Ox 97 Oxygen Delivery Method Room Air Positive well nourished, well developed and obese; Negative for cachectic, contractures or unkempt General Appearance ED: well developed and NAD; Negative for unkempt, cachectic, contractures or pallor Nutritional Appearance: obese; Negative for cachectic HEENT Reports moist mucous membranes Negative for trauma or tenderness Eyes PERRL and EOMs intact bilaterally Neck no lymphadenopathy and supple Chest Wall inspection of chest normal and palpation of chest normal Resp normal respiratory effort and clear to auscultation bilaterally Effort and Inspection: Negative for pain with movement Auscultation: Negative for rales, rhonchi or wheezes Cardio regular rate, regular rhythm, S1 normal heart sound, S2 normal heart sound and no murmurs GI normal to inspection, nondistended, normoactive bowel sounds, non-tender, non- distended and no masses Inspection: Negative for abdominal distention Auscultation: normoactive bowel sounds Palpation: soft; Negative for tender, guarding or rebound tenderness present Back/Spine no CVA tenderness Extremity normal to inspection General Extremety ED: Negative for edema or tenderness General Extremity: Negative for edema Neuro oriented x3 Sensorium / Orientation: alert Motor Exam: strength 5/5 throughout Psych mental status grossly normal Appearance: Negative for unkempt Skin No no rashes or lesions noted and no wounds General Skin Exam: elasticity normal; Negative for jaundice or pallor Rashes: rashes noted MDM MDM MDM Narrative Medical decision making narrative: Patient be treated for allergic reaction with prednisone and Benadryl. Follow-up with a grain spouter if not improving. Return if worse. Discharge Plan Triage Chief Complaint: Rash ED Provider: Bill Carrillo Dx/Rx/DC Orders Clinical Impression: Allergic reaction Instructions: ED General Allergic Reactions Prescriptions: New prednisone 20 mg tablet 40 mg PO DAILY Qty: 14 RF: 0 diphenhydramine HCl [Benadryl Allergy] 25 mg tablet 25 mg PO QHS PRN (Reason: allergic reaction) 5 Days Qty: 10 RF: 0 No Action albuterol sulfate 90 mcg/actuation HFA aerosol inhaler 1 inh inhalation Q6H PRN (Reason: shortness of breath or wheezing) Qty: 8.5 RF: 3 loratadine [Allergy Relief (loratadine)] 10 mg tablet 10 mg PO DAILY Qty: 90 RF: 3 etonogestrel 68 MG implant 68 mg SQ DAILY RF: 0 fluticasone propionate 44 mcg/actuation HFA aerosol inhaler 2 inh inhalation BID 90 Days Qty: 10.6 RF: 2 ibuprofen 800 mg tablet 800 mg PO BID Qty: 60 RF: 1 Primary Care Provider: Nanci Corral Referrals: Nanci Corral MD [Primary Care Provider] - Hayde Paulino MD [NON-STAFF] - 1 Week if not improving Activity Restrictions/Additional Instructions: Rash appears to be an allergic reaction to something. I am not sure exactly what that something is. Prednisone 40 g a day till gone. Benadryl as needed for itching and allergic reaction. Follow-up with a grain spouter if not improving. Disposition Disposition: Home, Self Care
== END 2021-04-10 15:12 | disposition home or self-care (01) ==
PROVIDERS: Emergency Provider Emergency Medicine; PCP Internal Medicine
DX: T78.40XA Allergy, unspecified, initial encounter (principal); J45.909 Unspecified asthma, uncomplicated; E66.01 Morbid (severe) obesity due to excess calories; F17.210 Nicotine dependence, cigarettes, uncomplicated; Z79.51 Long term (current) use of inhaled steroids
CPT/HCPCS: 99282

== ENCOUNTER 2021-05-20 00:25 | Emergency (ER) | payer MEDICAID, SELFPAY ==
[2021-05-20] VITALS (9 sets, daily range): BP systolic 124–145; BP diastolic 88–100; PULSE 88–149; RESP 16–20; TEMP 36.6; O2SAT 96–99; BMI 40.7
--- NOTE | 2021-05-20 00:40 | EKG12_ITS ---
Test Reason : MENTAL HEALH Blood Pressure : / mmHG Vent. Rate : 136 BPM Atrial Rate : 136 BPM P-R Int : 118 ms QRS Dur : 068 ms QT Int : 316 ms P-R-T Axes : 057 027 067 degrees QTc Int : 475 ms Sinus tachycardia Nonspecific [address] abnormality Abnormal ECG Confirmed by OLGA DELUNA, KATARINA ([id number]), purchasing expeditor JOSE F CRAIG ([id number]) on 05/21/2021 7:52:42 AM Referred By: CLAY Confirmed By:KATARINA ESPINOZA MD
--- NOTE | 2021-05-20 00:42 | EX.ED.DYSGE1 ---
HPI History of Present Illness Chief Complaint: Suicidal Narrative Narrative: Patient is a 26-year-old female who reports a past medical history of depression. She states multiple years ago that she was admitted to a psychiatric facility for attempting to hurt her self. However she cannot tell me what she did or when exactly that was other than years ago. She states there is been no one stressor recently but she feels like her depression is spiraling out of control and leading to thoughts of suicide. Patient states that she recently started seeing a counselor but has only had 1 or 2 visits and is currently not on any type of antidepression medication. Patient denies any alcohol or illicit drug use today. She states that she feels she needs placed in a mental institution once again because of her worsening depression and therefore called EMS to bring her in for evaluation [facility] Medical History Asthma Morbid obesity Obesity (BMI 30-39.9) Seasonal allergies Vaginal discharge Home Medications etonogestrel 68 mg SQ DAILY 04/30/20 [History Last Taken Unknown] albuterol sulfate 90 mcg/actuation aerosol inhaler 1 inh INHALATION Q6H PRN #8.5 g 02/13/21 [Rx Last Taken Unknown] loratadine 10 mg tablet 10 mg PO DAILY #90 tab 02/13/21 [Rx Last Taken Unknown] fluticasone propionate 44 mcg/actuation HFA aerosol inhaler 2 inh INHALATION BID 90 Days #10.6 g 02/18/21 [Rx Last Taken Unknown] Allergy/AdvReac Type Severity Reaction Status Date / Time penicillin G Allergy Mild Hives Verified 05/20/21 00:28 venom-honey bee Allergy Swelling Verified 05/20/21 00:28 [bee venom (honey bee)] Family History Grandmother Asthma Arthritis Surgical History History of wisdom tooth extraction Social History Smoking Status: Current some day smoker tobacco type: cigarettes alcohol intake: never substance use type: does not use what type of physical activity do you participate in: walking frequency: 5-6 times per week ROS ROS ED Constitutional Constitutional ED: Denies chills or fever(s) ENT ENT ED: Denies sore throat Cardiovascular Cardiovascular: Denies chest pain Respiratory/Chest Respiratory/Chest: Denies cough or dyspnea Gastrointestinal Gastrointestinal: Denies abdominal pain, diarrhea, nausea or vomiting Genitourinary Genitourinary ED: Denies dysuria Musculoskeletal Musculoskeletal: Denies myalgias Integumentary Denies rash Neurologic Neurologic: Denies headache(s) Psychiatric Psychiatric: Reports depression, suicidal ideation and suicidal thoughts EXAM Physical Exam Const Vital Signs: 05/20/21 00:26 05/20/21 01:28 05/20/21 02:39 Temperature 98 F Temperature Source Temporal Pulse Rate 149 H 123 H 124 H Respiratory Rate 16 20 H Blood Pressure 139/96 H 129/99 H 145/100 H Blood Pressure Mean 110 109 115 Pulse Ox 96 99 99 Oxygen Delivery Method Room Air Room Air 05/20/21 03:00 05/20/21 04:00 05/20/21 05:00 Temperature Temperature Source Pulse Rate Respiratory Rate 16 16 16 Blood Pressure Blood Pressure Mean Pulse Ox Oxygen Delivery Method 05/20/21 06:05 Temperature Temperature Source Pulse Rate 89 Respiratory Rate 18 Blood Pressure 124/88 H Blood Pressure Mean 100 Pulse Ox 98 Oxygen Delivery Method Room Air Positive well nourished and well developed General Appearance ED: well developed HEENT Reports dry mucous membranes Mouth ED: Yes dry mucous membranes Mouth: dry mucous membranes Eyes EOMs intact bilaterally Eyes Narrative: Pupils are dilated and sluggish to respond to light Neck supple Resp normal respiratory effort and clear to auscultation bilaterally Cardio regular rhythm Rate: other Other Details: Tachycardic rate with regular rhythm GI normal to inspection, nondistended, normoactive bowel sounds, non-tender, non-distended and no masses Auscultation: normoactive bowel sounds Palpation: soft Extremity normal to inspection Extremity Narrative: No asymmetric edema no pitting edema negative Homans' sign bilaterally Neuro oriented x3 and CN's II-XII intact bilaterally Sensorium / Orientation: alert Motor Exam: strength 5/5 throughout Psych Psych Narrative: Patient has a depressed/flat affect with suicidal ideation Mood & Affect: depressed Skin no rashes or lesions noted MDM MDM MDM Narrative Medical decision making narrative: Patient presented to the ER tachycardic and hypertensive but denied any type of excessive stimulant use or illicit drug use. She reported that she has been having worsening depression recently but cannot give a definitive stressor. She also reported suicidal ideation but had no plan. She is moderate risk as she has been hospitalized in the past. Therefore a medical screening exam was performed. Work-up showed positive methamphetamines and THC in the patient's bloodstream, the methamphetamines would correlate with her hypertension and tachycardia. White count a slight elevated at 14 but I feel this is most likely stress response and not secondary to true infection. Urine also showed bacteria but there is a large amount of contamination present and as patient does not have dysuria I do not feel this needs to be treated. Based on the patient's moderate risk factor for suicide and her report of depression with suicidal ideation she was evaluated by crisis center. They agree that with her moderate risk factors it would be in her best interest for placement. Therefore they will work on psychiatric admission at this time. From an ER standpoint the patient does have methamphetamines on board and is tachycardic and hypertensive but she has no signs of endorgan damage. The abnormal vital signs from the methamphetamine will improve with time as the drug is metabolized out of her system. Therefore the patient is medically cleared at this time and is safe for placement in a psychiatric facility. Lab Data Attestation: I reviewed the patient's lab results. Labs: Laboratory Results - last 24 hr 05/20/21 05/20/21 05/20/21 00:12 00:12 00:12 WBC 14.0 H RBC 5.11 Hgb 14.9 Hct 44.3 MCV 86.7 MCH 29.2 MCHC 33.6 RDW Std Deviation 41.1 RDW Coeff of Jose 13.1 Plt Count 430 MPV 10.3 Immature Gran % (Auto) 0.400 Neut % (Auto) 64.6 Lymph % (Auto) 26.3 [place] % (Auto) 7.2 Eos % (Auto) 1.1 Baso % (Auto) 0.4 Absolute Neuts (auto) 9.0 H Absolute Lymphs (auto) 3.67 Nucleated RBC % 0 Sodium 139 Potassium 3.4 L Chloride 110 H Carbon Dioxide 19.0 L Anion Gap 10 BUN 19 H Creatinine 0.84 Estim Creat Clear Calc 86.87 Est GFR (MDRD) Af Amer 105 Est GFR (MDRD) Non-Af 87 BUN/Creatinine Ratio 22.7 H Glucose 113 H Calcium 9.4 Total Creatine Kinase Urine Color Urine Clarity Urine pH Ur Specific [place] Urine Protein Urine Glucose (UA) Urine Ketones Urine Occult Blood Urine Nitrite Urine Bilirubin Urine Urobilinogen Ur Leukocyte Esterase Urine RBC Urine WBC Ur Squamous Epith Cells Ur Renal Epithelial Cell Urine Bacteria Urine Mucus Urine Test Salicylates 2.0 L Urine Opiates Screen Urine Methadone Screen Acetaminophen < 2.0 L Ur Barbiturates Screen Ur Phencyclidine Scrn Ur Amphetamines Screen U Methamphetamin-MDMA U Benzodiazepines Scrn Urine Cocaine Screen U Cannabinoids Screen Ur Drug Screen Comment Ethyl Alcohol < 3.0 05/20/21 05/20/21 05/20/21 00:53 00:53 01:12 WBC RBC Hgb Hct MCV MCH MCHC RDW Std Deviation RDW Coeff of Jose Plt Count MPV Immature Gran % (Auto) Neut % (Auto) Lymph % (Auto) [place] % (Auto) Eos % (Auto) Baso % (Auto) Absolute Neuts (auto) Absolute Lymphs (auto) Nucleated RBC % Sodium Potassium Chloride Carbon Dioxide Anion Gap BUN Creatinine Estim Creat Clear Calc Est GFR (MDRD) Af Amer Est GFR (MDRD) Non-Af BUN/Creatinine Ratio Glucose Calcium Total Creatine Kinase 330 H Urine Color Yellow Urine Clarity Cloudy Urine pH 5.0 Ur Specific [place] 1.030 Urine Protein 30 H Urine Glucose (UA) Normal Urine Ketones 150 A* Urine Occult Blood 250 H Urine Nitrite Negative Urine Bilirubin 1 H Urine Urobilinogen 1 H Ur Leukocyte Esterase 25 H Urine RBC 10-25 SEEN Urine WBC 0-5 SEEN Ur Squamous Epith Cells 10-25 SEEN Ur Renal Epithelial Cell 0-5 SEEN Urine Bacteria 3+ Urine Mucus 0 SEEN Urine Test Negative Salicylates Urine Opiates Screen NEGATIVE Urine Methadone Screen NEGATIVE Acetaminophen Ur Barbiturates Screen NEGATIVE Ur Phencyclidine Scrn NEGATIVE Ur Amphetamines Screen POSITIVE H U Methamphetamin-MDMA POSITIVE H U Benzodiazepines Scrn NEGATIVE Urine Cocaine Screen NEGATIVE U Cannabinoids Screen POSITIVE H Ur Drug Screen Comment Ethyl Alcohol Discharge Plan Triage Chief Complaint: Suicidal Other Complaint: Depression ED Provider: Odell Cook Dx/Rx/DC Orders Clinical Impression: Depression with suicidal ideation, Methamphetamine abuse Prescriptions: No Action albuterol sulfate 90 mcg/actuation HFA aerosol inhaler 1 inh inhalation Q6H PRN (Reason: shortness of breath or wheezing) Qty: 8.5 RF: 3 loratadine [Allergy Relief (loratadine)] 10 mg tablet 10 mg PO DAILY Qty: 90 RF: 3 etonogestrel 68 MG implant 68 mg SQ DAILY RF: 0 fluticasone propionate 44 mcg/actuation HFA aerosol inhaler 2 inh inhalation BID 90 Days Qty: 10.6 RF: 2 Primary Care Provider: Nanci Corral Referrals: Nanci Corral MD [Primary Care Provider] - Disposition Disposition: Psychiatric Hospital or Unit
--- NOTE | 2021-05-20 00:51 | ED.RN ---
PT DENIED SI TO EMS, BUT TOLD DR GOMEZ SHE WAS SUICIDAL WITH A PLAN. SITTER PROTOCOL STARTED
[2021-05-20 00:58] LABS: Mucous, Urine 0 SEEN /hpf (<or=2+)
[2021-05-20 01:10] LABS: Color, Urine Yellow (Yellow); Glucose, Dipstick Normal (Normal); Leukocyte Esterase-Dipstick 25 /ul (Negative); Nitrite-Dipstick Negative (Negative); Occult Blood-Urine 250 /ul (Negative); Protein-Dipstick 30 mg/dl (Negative); Urine Clarity Cloudy (Clear); Urine Urobilinogen 1 mg/dl (Normal)
[2021-05-20 01:21] LABS: Amphetamine Urine VISTA POSITIVE (<1000 ng/mL); Barbiturate Urine VISTA NEGATIVE (< 200 ng/mL); Benzodiazepine Urine VISTA NEGATIVE (< 200 ng/mL); Cocaine Urine VISTA NEGATIVE (< 300 ng/mL); Ecstacy Urine VISTA POSITIVE (< 500 ng/mL); Methadone Urine VISTA NEGATIVE (< 300 ng/mL); PCP Urine VISTA NEGATIVE (< 25 ng/mL); THC Urine VISTA POSITIVE (< 50 ng/mL); Vista UDS pH Range 4
[2021-05-20 01:22] LABS: Ketone-Dipstick 150 mg/dl (Negative); Urine Bilirubin Dipstick 1 mg/dL (Negative)
[2021-05-20 01:23] LABS: Internal QC Validated? YES +Cl - CLEAR BKGD; Pregnancy, Urine Negative Negative
[2021-05-20 01:24] LABS: Red Blood Cells-Urine 10-25 SEEN /hpf (0-5); Squamous Epithelial Cells - UA 10-25 SEEN /hpf (5-10); White Blood Cells 0-5 SEEN /hpf (0-5)
[2021-05-20 01:25] LABS: Bacteria 3+ /hpf (None Seen); Renal Epithelial Cells 0-5 SEEN /hpf (0-5)
[2021-05-20 01:28] LABS: Absolute Lymphocyte Count 3.67 X10^3/uL (0.83-4.51); Basophil# 0.06 X10^3/uL; Basophil% 0.4 % (0-1); Eosinophil# 0.15 X10^3/uL; Eosinophils% 1.1 % (0-5); Hematocrit 44.3 % (37-47); Hemoglobin 14.9 g/dL (12.0-15.0); Lymphocyte # 3.67 X10^3/ul (0.83-4.51); Lymphocyte % 26.3 % (19-41); Mean Corp Hgb Conc 33.6 g/dL (32-36); Mean Corpuscular Hgb 29.2 pg (27.0-32.0); Mean Corpuscular Volume 86.7 fL (81-99); Mean Platelet Vol. 10.3 fl (6.2-12.0); Monocyte# 1.01 X10^3/uL; Monocyte% 7.2 % (0-10); NRBC Flagged by Analyzer 0 % (0-5); Neutrophil # 9.03 X10^3/uL (2.7-7.7); Neutrophil % 64.6 % (47-70); Platelet Count 430 K/mm3 (150-450); RBC Distribution Width CV 13.1 % (11.6-14.6); RBC Distribution Width SD 41.1 fl (35.1-43.9); Red Blood Count 5.11 M/mm3 (4.2-5.4)
[2021-05-20 01:32] LABS: Anion Gap 10 (5-15); BUN 19 mg/dL (7-18); BUN/Creat Ratio 22.7 RATIO (10-20); Calcium,Total 9.4 mg/dL (8.5-10.1); Chloride 110 mmol/L (98-107); Creatinine, Serum 0.84 mg/dL (0.55-1.02); EST Glomerular Filtration Rate 87 mL/min (>60); Est Glom Filt Rate - Afr Amer 105 mL/min (>60); Estimated Creatinine Clearance 86.87 ml/min; Glucose 113 mg/dL (74-106); Potassium 3.4 mmol/L (3.5-5.1); Sodium Level 139 mmol/L (136-145)
[2021-05-20 01:44] LABS: CPK Total, Creatine Kinase 330 U/L (26-192)
[2021-05-20 02:09] LABS: Acetaminophen (Tylenol) Level < 2.0 ug/mL (10.0-30.0); Alcohol, Blood (Medical)-Serum < 3.0 mg/dL
--- NOTE | 2021-05-20 05:12 | ED.RN ---
REFERRED TO [facility]
== END 2021-05-20 08:50 ==
PROVIDERS: Emergency Provider Emergency Medicine; PCP Internal Medicine
DX: F32.A Depression, unspecified (principal); F15.10 Other stimulant abuse, uncomplicated; R45.851 Suicidal ideations; J45.909 Unspecified asthma, uncomplicated; E66.01 Morbid (severe) obesity due to excess calories; Z79.51 Long term (current) use of inhaled steroids; F17.210 Nicotine dependence, cigarettes, uncomplicated
CPT/HCPCS: 80048; 80307; 80329; 81001; 81025; 82077; 82550; 85025; 87426; 93005; 99285; G0480

== ENCOUNTER 2022-06-07 18:07 | Emergency (ER) | payer MEDICAID, SELFPAY ==
[2022-06-07 18:08] VITALS: BP 117/86; PULSE 100; RESP 18; TEMP 37.4; O2SAT 98; BMI 42.7
[2022-06-07 18:10] VITALS: BP 117/86; PULSE 100; RESP 18; TEMP 37.4; O2SAT 98
[2022-06-07 20:07] VITALS: RESP 16
[2022-06-07] MEDS: Ondansetron 4 MG/2 ML Vial IV (20:44)
[2022-06-07] MEDS: 0.9% Normal Saline 1,000 ML 1000 ML IV (20:44)
[2022-06-07 20:56] LABS: Absolute Lymphocyte Count 3.06 X10^3/uL (0.83-4.51); Absolute Neutrophil Count 9.4 X10^3/uL (2.0-7.7); Basophil# 0.07 X10^3/uL; Basophil% 0.5 % (0-1); Eosinophil# 0.13 X10^3/uL; Hemoglobin 13.8 g/dL (12.0-15.0); Lymphocyte # 3.06 X10^3/ul (0.83-4.51); Lymphocyte % 22.7 % (19-41); Mean Corp Hgb Conc 32.9 g/dL (32-36); Mean Corpuscular Hgb 28.8 pg (27.0-32.0); Mean Corpuscular Volume 87.7 fL (81-99); Mean Platelet Vol. 10.1 fl (6.2-12.0); Monocyte# 0.77 X10^3/uL; Monocyte% 5.7 % (0-10); NRBC Flagged by Analyzer 0 % (0-5); Neutrophil # 9.39 X10^3/uL (2.7-7.7); Neutrophil % 69.7 % (47-70); Platelet Count 438 K/mm3 (150-450); RBC Distribution Width CV 14.4 % (11.6-14.6); RBC Distribution Width SD 46.5 fl (35.1-43.9); Red Blood Count 4.79 M/mm3 (4.2-5.4); White Blood Count 13.5 K/mm3 (4.4-11.0)
[2022-06-07 21:04] LABS: Internal QC Validated? YES +Cl - CLEAR BKGD; Pregnancy, Serum, hCG Quali. NEGATIVE Negative
[2022-06-07 21:13] LABS: ALB/GLOB Ratio 1.1 RATIO (0.9-2.4); AST(SGOT) 16 U/L (15-37); Alanine Aminotransfer ALT/SGPT 34 U/L (13-56); Alkaline Phosphatase 78 U/L (45-117); Anion Gap 6 (5-15); BUN 15 mg/dL (7-18); BUN/Creat Ratio 18.3 RATIO (10-20); Calcium,Total 8.9 mg/dL (8.5-10.1); Chloride 107 mmol/L (98-107); Creatinine, Serum 0.82 mg/dL (0.55-1.02); EST Glomerular Filtration Rate 88 mL/min (>60); Est Glom Filt Rate - Afr Amer 107 mL/min (>60); Globulin 3.6 g/dL (2.2-4.2); Glucose 105 mg/dL (74-106); Lipase 62 U/L (73-393); Potassium 3.9 mmol/L (3.5-5.1); Protein, Total 7.6 g/dL (6.4-8.2); Sodium Level 140 mmol/L (136-145)
[2022-06-07] MEDS: Metoclopramide 10 MG/2 ML Vial 5 MG IV (22:04)
[2022-06-07 22:07] VITALS: BP 134/76; PULSE 84; RESP 18
[2022-06-07 22:10] LABS: Bacteria 0 SEEN /hpf (None Seen); Mucous, Urine 0 SEEN /hpf (<or=2+); Red Blood Cells-Urine 0 SEEN /hpf (0-5)
[2022-06-07 22:13] LABS: Color, Urine Yellow (Yellow); Glucose, Dipstick Normal (Normal); Ketone-Dipstick 15 mg/dl (Negative); Leukocyte Esterase-Dipstick 100 /ul (Negative); Nitrite-Dipstick Negative (Negative); Occult Blood-Urine Negative /ul (Negative); Protein-Dipstick 30 mg/dl (Negative); Specific Gravity, Urine 1.015 (1.002-1.030); Urine Bilirubin Dipstick Negative (Negative); Urine Clarity Sl. Cloudy (Clear); Urine Urobilinogen 1 mg/dl (Normal)
[2022-06-07 22:20] LABS: Squamous Epithelial Cells - UA 50-100 SEEN /hpf (5-10); White Blood Cells 5-10 SEEN /hpf (0-5)
--- NOTE | 2022-06-07 23:13 | EX.ED.DYSGE1 ---
HPI History of Present Illness Chief Complaint: Nausea/Vomiting Informant: patient Narrative Narrative: 27-year-old female presents with nausea and vomiting. She states this started 2 days ago. Has had several episodes of vomiting today. She denies urinary complaints. She had 1 episode of diarrhea. Denies sick contacts. She states she has not been able to keep anything down today. She does smoke marijuana daily. Prior similar symptoms: Yes Recent Illness/Hospitalization: No PFSH PFSH Medical History Asthma Morbid obesity Obesity (BMI 30-39.9) Seasonal allergies Vaginal discharge Home Medications etonogestrel 68 mg subdermal implant 68 mg SQ DAILY 04/30/20 [History Last Taken Unknown] albuterol sulfate 90 mcg/actuation aerosol inhaler 1 inh inhalation Q6H PRN shortness of breath or wheezing #8.5 grams 02/13/21 [Rx Last Taken Unknown] loratadine 10 mg tablet (Allergy Relief (loratadine)) 10 mg PO DAILY #90 tabs 02/13/21 [Rx Last Taken Unknown] fluticasone propionate 44 mcg/actuation HFA aerosol inhaler 2 inh inhalation BID 3 months #10.6 grams 02/18/21 [Rx Last Taken Unknown] ondansetron 4 mg disintegrating tablet 4 mg PO Q8H PRN PRN Nausea #10 tabs 06/08/22 [Rx Last Taken Unknown] Allergy/AdvReac Type Severity Reaction Status Date / Time penicillin G Allergy Mild Hives Verified 05/20/21 00:28 venom-honey bee Allergy Swelling Verified 05/20/21 00:28 [bee venom (honey bee)] Family History Grandmother Asthma Arthritis Surgical History History of wisdom tooth extraction Social History Smoking Status: Current some day smoker tobacco type: cigarettes alcohol intake: never substance use type: does not use what type of physical activity do you participate in: walking frequency: 5-6 times per week ROS ROS ED Constitutional Constitutional ED: Denies fever(s) Eyes Eyes: Denies change in vision ENT ENT ED: Denies rhinorrhea or sore throat Cardiovascular Cardiovascular: Denies chest pain or palpitations Respiratory/Chest Respiratory/Chest: Denies cough or dyspnea Gastrointestinal Gastrointestinal: Reports diarrhea, nausea and vomiting; Denies abdominal pain Genitourinary Genitourinary ED: Denies dysuria Musculoskeletal Musculoskeletal: Denies myalgias Integumentary Denies rash Neurologic Neurologic: Denies headache(s) Psychiatric Psychiatric: Denies suicidal thoughts EXAM Physical Exam Const Vital Signs: 06/07/22 18:08 06/07/22 18:10 06/07/22 20:07 Temperature 99.4 F H 99.4 F H Temperature Source Temporal Temporal Pulse Rate 100 100 Respiratory Rate 18 18 16 Blood Pressure 117/86 H 117/86 H Blood Pressure Mean 96 96 Pulse Ox 98 98 Oxygen Delivery Method Room Air Room Air 06/07/22 22:07 Temperature Temperature Source Pulse Rate 84 Respiratory Rate 18 Blood Pressure 134/76 H Blood Pressure Mean 95 Pulse Ox Oxygen Delivery Method Positive well nourished and well developed General Appearance ED: well developed HEENT Reports normocephalic and head/scalp atraumatic Eyes PERRL and EOMs intact bilaterally Neck supple General: Negative for tenderness Chest Wall inspection of chest normal Resp normal respiratory effort and clear to auscultation bilaterally Cardio regular rate and regular rhythm GI non-tender and non-distended GI Narrative: Abdomen is soft and nontender with no rebound or guarding. Palpation: soft; Negative for guarding or rebound tenderness present no CVA tenderness Extremity normal to inspection Neuro oriented x3 Sensorium / Orientation: alert Psych mental status grossly normal Skin no rashes or lesions noted MDM MDM MDM Narrative Medical decision making narrative: Patient was given IV fluids and Zofran. She continued to be nauseated and was given Reglan IV. CBC shows a white count 13.5. Chemistries are unremarkable. Liver enzymes normal. Lipase is normal. Serum is negative. Urinalysis is contaminated. Patient was given additional IV fluids. She is requesting discharge home. She was given prescription for Zofran. Advised to follow up with primary care physician. Advised return to ED for worsening complaints. Lab Data Attestation: I reviewed the patient's lab results. Labs: Laboratory Results - last 24 hr 06/07/22 06/07/22 06/07/22 20:47 20:47 20:47 WBC 13.5 H RBC 4.79 Hgb 13.8 Hct 42.0 MCV 87.7 MCH 28.8 MCHC 32.9 RDW Std Deviation 46.5 H RDW Coeff of Jose 14.4 Plt Count 438 MPV 10.1 Immature Gran % (Auto) 0.400 Neut % (Auto) 69.7 Lymph % (Auto) 22.7 [place] % (Auto) 5.7 Eos % (Auto) 1.0 Baso % (Auto) 0.5 Absolute Neuts (auto) 9.4 H Absolute Lymphs (auto) 3.06 Nucleated RBC % 0 Sodium 140 Potassium 3.9 Chloride 107 Carbon Dioxide 27.0 Anion Gap 6 BUN 15 Creatinine 0.82 Estim Creat Clear Calc 88.20 Est GFR (MDRD) Af Amer 107 Est GFR (MDRD) Non-Af 88 BUN/Creatinine Ratio 18.3 Glucose 105 Calcium 8.9 Total Bilirubin 0.30 AST 16 ALT 34 Alkaline Phosphatase 78 Total Protein 7.6 Albumin 4.0 Globulin 3.6 Albumin/Globulin Ratio 1.1 Lipase 62 L Serum , Qual NEGATIVE Urine Color Urine Clarity Urine pH Ur Specific [place] Urine Protein Urine Glucose (UA) Urine Ketones Urine Occult Blood Urine Nitrite Urine Bilirubin Urine Urobilinogen Ur Leukocyte Esterase Urine RBC Urine WBC Ur Squamous Epith Cells Urine Bacteria Urine Mucus 06/07/22 21:55 WBC RBC Hgb Hct MCV MCH MCHC RDW Std Deviation RDW Coeff of Jose Plt Count MPV Immature Gran % (Auto) Neut % (Auto) Lymph % (Auto) [place] % (Auto) Eos % (Auto) Baso % (Auto) Absolute Neuts (auto) Absolute Lymphs (auto) Nucleated RBC % Sodium Potassium Chloride Carbon Dioxide Anion Gap BUN Creatinine Estim Creat Clear Calc Est GFR (MDRD) Af Amer Est GFR (MDRD) Non-Af BUN/Creatinine Ratio Glucose Calcium Total Bilirubin AST ALT Alkaline Phosphatase Total Protein Albumin Globulin Albumin/Globulin Ratio Lipase Serum , Qual Urine Color Yellow Urine Clarity Sl. Cloudy Urine pH 7.0 Ur Specific [place] 1.015 Urine Protein 30 H Urine Glucose (UA) Normal Urine Ketones 15 H Urine Occult Blood Negative Urine Nitrite Negative Urine Bilirubin Negative Urine Urobilinogen 1 H Ur Leukocyte Esterase 100 H Urine RBC 0 SEEN Urine WBC 5-10 SEEN Ur Squamous Epith Cells 50-100 SEEN Urine Bacteria 0 SEEN Urine Mucus 0 SEEN Discharge Plan Triage Chief Complaint: Nausea/Vomiting ED Provider: Southern,Patricia Dx/Rx/DC Orders Clinical Impression: Nausea & vomiting Instructions: ED Vomiting (Adult) Prescriptions: New ondansetron 4 mg tablet,disintegrating 4 mg PO Q8H PRN PRN (Reason: Nausea) Qty: 10 0RF No Action albuterol sulfate 90 mcg/actuation HFA aerosol inhaler 1 inh inhalation Q6H PRN (Reason: shortness of breath or wheezing) Qty: 8.5 3RF loratadine [Allergy Relief (loratadine)] 10 mg tablet 10 mg PO DAILY Qty: 90 3RF etonogestrel 68 MG implant 68 mg SQ DAILY fluticasone propionate 44 mcg/actuation HFA aerosol inhaler 2 inh inhalation BID 90 Days Qty: 10.6 2RF Primary Care Provider: Nanci Corral Referrals: Nanci Corral MD [Primary Care Provider] - Disposition Disposition: Home, Self Care
== END 2022-06-08 00:13 | disposition home or self-care (01) ==
PROVIDERS: Emergency Provider Emergency Medicine; PCP Internal Medicine; Visit Provider Emergency Medicine
DX: R11.2 Nausea with vomiting, unspecified (principal); E66.01 Morbid (severe) obesity due to excess calories; R19.7 Diarrhea, unspecified; J45.909 Unspecified asthma, uncomplicated; F17.210 Nicotine dependence, cigarettes, uncomplicated; Z79.899 Other long term (current) drug therapy
CPT/HCPCS: 80053; 81001; 83690; 84703; 85025; 87428; 96361; 96374; 96375; 99283; J7030; A4216; J2405

== ENCOUNTER 2022-06-08 12:18 | Emergency (ER) | payer MEDICAID, SELFPAY ==
[2022-06-08 12:19] VITALS: BP 142/78; PULSE 114; RESP 15; TEMP 36.3; O2SAT 98; BMI 42.7
--- NOTE | 2022-06-08 13:09 | CT_ITS ---
INDICATION: Abdominal pain -- IV PO Contrast EXAMINATION: CT ABDOMEN AND PELVIS WITH CONTRAST - CT Abdomen And Pelvis W/ Contrast Injection TECHNIQUE: Helically acquired images were obtained of the abdomen and pelvis following IV contrast. A radiation dose optimization technique was used for this scan. IV Contrast dosage and agent: 100 cc of Isovue-370 Oral contrast: Gastrografin COMPARISON: October 19, 2018 FINDINGS: LOWER CHEST: Lung bases are clear. No cardiomegaly or pericardial effusion. LIVER: There is a grossly stable low-attenuation focus within the left hepatic lobe adjacent to the falciform ligament consistent with focal fat. GALLBLADDER AND BILIARY TREE: No calcified gallstones. No gallbladder distension or wall edema. No intra- or extrahepatic biliary ductal dilation. PANCREAS: No focal cystic or solid mass. SPLEEN: Normal size without focal cystic or solid mass. ADRENAL GLANDS: No nodules. KIDNEYS AND URETERS: Normal renal size and position. No hydronephrosis. PERITONEUM: No ascites or free air. No other fluid collection. BOWEL: No evidence of acute appendicitis. No stomach or bowel distension. The colon is incompletely distended. There is circumferential wall thickening of the transverse, descending and sigmoid colon. LYMPH NODES: No enlarged mesenteric or retroperitoneal lymph nodes. VESSELS: Aorta is non-dilated. URINARY BLADDER: Unremarkable. REPRODUCTIVE ORGANS: No pelvic masses. There is trace free fluid that is likely physiologic. ABDOMINAL WALL: No discrete abdominal or pelvic wall hernia. BONES: No lytic or blastic abnormality. CT/Abdomen/Pelvis WITH Contrast IMPRESSION: Circumferential wall thickening of the transverse descending and sigmoid colon, this may be partially secondary to its incompletely distended state however cannot exclude mild colitis. Electronically Signed: Saba Jane MD at 15:57 EST ,
--- NOTE | 2022-06-08 13:11 | EDS_ITS ---
HPI HPI - GI History of Present Illness Chief Complaint: Nausea/Vomiting Abdominal Pain/Flank Pain Onset: Days (4) Context: Gradual Onset Timing: Continuous Quality: Dull and Sharp Location: Diffuse Worsened by: Nothing Relieved by: Nothing Nausea/Vomiting/Emesis GI Symptom: Positive for Nausea and Vomiting Onset: Days (4) Quality: Positive for Blood streaks Diarrhea/Melena/Hematochezia GI Symptom: Negative for Diarrhea, Melena or Hematochezia Associated Symptoms Associated Symptoms: Positive for Dysuria; Negative for Frequency or Hematuria Narrative Narrative: Patient presents with abdominal pain, nausea, and vomiting that has been constant for the last 4 days. Patient states it is gradually getting worse. Patient states her pain is diffuse across her abdomen. Patient states nothing makes it worse and nothing makes it better. Patient describes her pain as sharp and dull. Patient admits to some nausea and vomiting. Patient states she is had some blood streaks in her emesis. Patient denies any coffee-ground emesis. Patient denies any diarrhea, melena, or hematochezia. Patient admits to some dysuria but denies any hematuria or frequency. Patient states the first day of her last menstrual period was 05/24/2022. [facility] Medical History Asthma Morbid obesity Obesity (BMI 30-39.9) Seasonal allergies Vaginal discharge Home Medications etonogestrel 68 mg subdermal implant 68 mg SQ DAILY 04/30/20 [History Last Taken Unknown] albuterol sulfate 90 mcg/actuation aerosol inhaler 1 inh inhalation Q6H PRN shortness of breath or wheezing #8.5 grams 02/13/21 [Rx Last Taken Unknown] loratadine 10 mg tablet (Allergy Relief (loratadine)) 10 mg PO DAILY #90 tabs 02/13/21 [Rx Last Taken Unknown] fluticasone propionate 44 mcg/actuation HFA aerosol inhaler 2 inh inhalation BID 3 months #10.6 grams 02/18/21 [Rx Last Taken Unknown] ciprofloxacin HCl 500 mg tablet 500 mg PO BID #20 TABLETS 06/08/22 [Rx Last Taken Unknown] metronidazole 500 mg tablet 500 mg PO Q6H #40 tabs 06/08/22 [Rx Last Taken Unknown] ondansetron 4 mg disintegrating tablet 4 mg PO Q8H PRN PRN Nausea #10 tabs 06/08/22 [Rx Last Taken Unknown] Allergy/AdvReac Type Severity Reaction Status Date / Time penicillin G Allergy Mild Hives Verified 06/08/22 12:19 venom-honey bee Allergy Swelling Verified 06/08/22 12:19 [bee venom (honey bee)] Family History Grandmother Asthma Arthritis Surgical History History of wisdom tooth extraction Social History Smoking Status: Current some day smoker tobacco type: cigarettes alcohol intake: never substance use type: does not use what type of physical activity do you participate in: walking frequency: 5-6 times per week ROS ROS ED Constitutional Constitutional ED: Denies chills or fever(s) Eyes Eyes: Denies blurry vision or change in vision ENT ENT ED: Denies rhinorrhea or sore throat Cardiovascular Cardiovascular: Denies chest pain or palpitations Respiratory/Chest Respiratory/Chest: Reports dyspnea; Denies cough Gastrointestinal Gastrointestinal: Reports abdominal pain, nausea and vomiting Genitourinary Genitourinary ED: Reports dysuria; Denies hematuria Musculoskeletal Musculoskeletal: Reports back pain; Denies neck pain Integumentary Denies abscess or rash Neurologic Neurologic: Reports headache(s); Denies weakness Allergic/Immunologic Allergic/Immunologic ED: Denies mouth swelling or urticaria EXAM Physical Exam Const Vital Signs: 06/08/22 12:19 06/08/22 15:09 Temperature 97.3 F L Temperature Source Temporal Pulse Rate 114 H 96 Respiratory Rate 15 16 Blood Pressure 142/78 H 118/75 Blood Pressure Mean 99 89 Pulse Ox 98 98 Oxygen Delivery Method Room Air Room Air Positive well nourished, well developed and obese General Appearance ED: well developed and NAD Nutritional Appearance: obese HEENT Reports moist mucous membranes Neck supple and no JVD Resp normal respiratory effort and clear to auscultation bilaterally Cardio regular rate, regular rhythm and no murmurs GI normal to inspection, nondistended, normoactive bowel sounds Palpation: soft and tender epigastric, LLQ, RLQ, LUQ, RUQ, periumbilical and suprapubic; Negative for guarding or rebound tenderness present Extremity normal to inspection General Extremety ED: Negative for edema or tenderness General Extremity: Negative for edema Neuro oriented x3, CN's II-XII intact bilaterally and no sensory deficits noted Sensorium / Orientation: alert Motor Exam: strength 5/5 throughout Psych mental status grossly normal Skin no rashes or lesions noted MDM MDM MDM Narrative Medical decision making narrative: SeizurePatient was given IV fluids, Zofran, and Bentyl initially. Has a mild leukocytosis of 12.7. This is consistent with prior results. Comprehensive metabolic profile was within normal limits. Lipase was normal. Serum hCG was negative. CT scan of the abdomen pelvis with oral and IV contrast was obtained. There is circumferential wall thickening of the transverse, descending, and sigmoid colon. This may be colitis. The appendix was visualized and was normal. This was interpreted by the radiologist and reviewed by myself. Patient was given a dose of morphine and Zofran. Patient was given her first dose of Cipro and Flagyl here. Patient was given prescriptions for Cipro and Flagyl. Patient was instructed to avoid alcohol while taking Flagyl. Patient was instructed to follow-up with her primary care physician in 5 to 7 days. Patient understood and was agreeable with the plan. All questions were answered. Lab Data Attestation: I reviewed the patient's lab results. Labs: Laboratory Results - last 24 hr 06/08/22 06/08/22 06/08/22 12:40 12:40 12:40 WBC 12.7 H RBC 4.71 Hgb 13.6 Hct 41.6 MCV 88.3 MCH 28.9 MCHC 32.7 RDW Std Deviation 46.4 H RDW Coeff of Jose 14.3 Plt Count 390 MPV 10.4 Immature Gran % (Auto) 0.500 Neut % (Auto) 87.5 H Lymph % (Auto) 9.2 L [place] % (Auto) 2.5 Eos % (Auto) 0.0 Baso % (Auto) 0.3 Absolute Neuts (auto) 11.1 H Absolute Lymphs (auto) 1.17 Nucleated RBC % 0 Sodium 142 Potassium 3.5 Chloride 111 H Carbon Dioxide 25.0 Anion Gap 6 BUN 13 Creatinine 0.82 Estim Creat Clear Calc 88.20 Est GFR (MDRD) Af Amer 107 Est GFR (MDRD) Non-Af 88 BUN/Creatinine Ratio 15.9 Glucose 125 H Calcium 8.7 Total Bilirubin 0.50 AST 16 ALT 30 Alkaline Phosphatase 72 Total Protein 7.6 Albumin 3.9 Globulin 3.7 Albumin/Globulin Ratio 1.1 Lipase 43 L Serum , Qual NEGATIVE Radiography Diagnostic Testing: Clinical Impression(s) from Imaging Studies Abdomen/Pelvis CT 06/08/22 13:09 IMPRESSION: Circumferential wall thickening of the transverse descending and sigmoid colon, this may be partially secondary to its incompletely distended state however cannot exclude mild colitis. Electronically Signed: Saba Jane MD at 15:57 EST , Discharge Plan Triage Chief Complaint: Nausea/Vomiting ED Provider: Joe Hartmann Dx/Rx/DC Orders Clinical Impression: Colitis, Abdominal pain, Morbid obesity Instructions: ED Understanding Colitis Prescriptions: New metronidazole [metronidazole] 500 mg tablet 500 mg PO Q6H Qty: 40 0RF ciprofloxacin HCl [ciprofloxacin HCl] 500 mg tablet 500 mg PO BID Qty: 20 0RF No Action albuterol sulfate 90 mcg/actuation HFA aerosol inhaler 1 inh inhalation Q6H PRN (Reason: shortness of breath or wheezing) Qty: 8.5 3RF loratadine [Allergy Relief (loratadine)] 10 mg tablet 10 mg PO DAILY Qty: 90 3RF etonogestrel 68 MG implant 68 mg SQ DAILY ondansetron 4 mg tablet,disintegrating 4 mg PO Q8H PRN PRN (Reason: Nausea) Qty: 10 0RF fluticasone propionate 44 mcg/actuation HFA aerosol inhaler 2 inh inhalation BID 90 Days Qty: 10.6 2RF Primary Care Provider: Nanci Corral Referrals: Nanci Corral MD [Primary Care Provider] - 3-5 Days Disposition Disposition: Home, Self Care
[2022-06-08] MEDS: Dicyclomine 20 MG/2 ML Vial IM (13:17)
[2022-06-08] MEDS: Ondansetron 4 MG/2 ML Vial IV ×2 (13:18→15:08)
[2022-06-08] MEDS: 0.9% Normal Saline 1,000 ML 1000 ML IV (13:18)
[2022-06-08 13:19] LABS: Absolute Lymphocyte Count 1.17 X10^3/uL (0.83-4.51); Absolute Neutrophil Count 11.1 X10^3/uL (2.0-7.7); Basophil# 0.04 X10^3/uL; Basophil% 0.3 % (0-1); Hematocrit 41.6 % (37-47); Hemoglobin 13.6 g/dL (12.0-15.0); Lymphocyte # 1.17 X10^3/ul (0.83-4.51); Lymphocyte % 9.2 % (19-41); Mean Corp Hgb Conc 32.7 g/dL (32-36); Mean Corpuscular Hgb 28.9 pg (27.0-32.0); Mean Corpuscular Volume 88.3 fL (81-99); Mean Platelet Vol. 10.4 fl (6.2-12.0); Monocyte# 0.32 X10^3/uL; Monocyte% 2.5 % (0-10); NRBC Flagged by Analyzer 0 % (0-5); Neutrophil % 87.5 % (47-70); Platelet Count 390 K/mm3 (150-450); RBC Distribution Width CV 14.3 % (11.6-14.6); RBC Distribution Width SD 46.4 fl (35.1-43.9); Red Blood Count 4.71 M/mm3 (4.2-5.4); White Blood Count 12.7 K/mm3 (4.4-11.0)
[2022-06-08 13:27] LABS: Internal QC Validated? YES +Cl - CLEAR BKGD; Pregnancy, Serum, hCG Quali. NEGATIVE Negative
[2022-06-08 13:34] LABS: ALB/GLOB Ratio 1.1 RATIO (0.9-2.4); AST(SGOT) 16 U/L (15-37); Alanine Aminotransfer ALT/SGPT 30 U/L (13-56); Albumin, Serum 3.9 g/dL (3.2-5.0); Alkaline Phosphatase 72 U/L (45-117); Anion Gap 6 (5-15); BUN 13 mg/dL (7-18); BUN/Creat Ratio 15.9 RATIO (10-20); Calcium,Total 8.7 mg/dL (8.5-10.1); Chloride 111 mmol/L (98-107); Creatinine, Serum 0.82 mg/dL (0.55-1.02); EST Glomerular Filtration Rate 88 mL/min (>60); Est Glom Filt Rate - Afr Amer 107 mL/min (>60); Globulin 3.7 g/dL (2.2-4.2); Glucose 125 mg/dL (74-106); Lipase 43 U/L (73-393); Potassium 3.5 mmol/L (3.5-5.1); Protein, Total 7.6 g/dL (6.4-8.2); Sodium Level 142 mmol/L (136-145)
[2022-06-08 15:09] VITALS: BP 118/75; PULSE 96; RESP 16; O2SAT 98
[2022-06-08] MEDS: Ciprofloxacin 500 MG Tablet PO (16:10)
[2022-06-08] MEDS: metroNIDAZOLE 500 MG Tablet PO (16:10)
[2022-06-08] MEDS: Morphine 4 MG/ML Syringe IV (16:10)
== END 2022-06-08 16:37 | disposition home or self-care (01) ==
PROVIDERS: Emergency Provider Emergency Medicine; PCP Internal Medicine; Visit Provider Emergency Medicine
DX: K52.9 Noninfective gastroenteritis and colitis, unspecified (principal); E66.01 Morbid (severe) obesity due to excess calories; R10.84 Generalized abdominal pain; R30.0 Dysuria; J45.909 Unspecified asthma, uncomplicated; M54.9 Dorsalgia, unspecified; F17.210 Nicotine dependence, cigarettes, uncomplicated; Z79.899 Other long term (current) drug therapy
CPT/HCPCS: 74177; 80053; 83690; 84703; 85025; 96361; 96372; 96374; 96375; 96376; 99284; J7030; Q9967; A4216; J2405

== ENCOUNTER 2022-08-18 17:55 | Inpatient (IN) | payer MEDICAID, SELFPAY ==
[2022-08-18 18:42] VITALS: BP 143/104; PULSE 147; RESP 18; TEMP 36.6; O2SAT 97; BMI 39.9
--- NOTE | 2022-08-18 20:05 | EKG12_ITS ---
Test Reason : DYSRHYTHMIA Blood Pressure : / mmHG Vent. Rate : 119 BPM Atrial Rate : 119 BPM P-R Int : 126 ms QRS Dur : 076 ms QT Int : 332 ms P-R-T Axes : 064 057 049 degrees QTc Int : 467 ms Sinus tachycardia Otherwise normal ECG Confirmed by OLGA DELUNA, KATARINA ([id number]), society editor JOSE F CRAIG ([id number] on 08/20/2022 1:18:03 PM Referred By: SERINA Confirmed By:KATARINA ESPINOZA MD
--- NOTE | 2022-08-18 20:06 | EX.ED.SAOD ---
HPI History of Present Illness Chief Complaint: Mental Health Detail of Chief Complaint: Detox from alcohol, methamphetamine and cannabis Informant: patient Onset/Context/Timing Onset: Weeks Context: Sudden Onset Timing: Continuous Quality: Daily use of alcohol and cannabis, intermittent use of methamphetamine Location: Not applicable Current Severity: Moderate Maximum Severity: Moderate Worsened by: Patient is concerned she is going through withdrawal. Relieved by: Nothing Associated Symptoms Associated Symptoms: Positive for tremor, palpatations and unknown; Negative for vomiting*, diarrhea*, fever*, rash*, seizure, change in mental status, trauma, sex for drugs*, homicidal ideation or *HIV Risk Factors:Consider testing if last test > 6 months Narrative Narrative: Patient is a 27-year-old woman. Her drinking has affected her job. She is been drinking shots of [place] recently. She does admit to daily cannabis use. She also uses methamphetamine. She has never been in a detox program. She states she needs help. She does endorse being depressed. She denies suicidal homicidal ideation. She denies symptoms of . She denies history of hepatitis C. She does have remote history of STI. Prior similar symptoms: No Recent Illness/Hospitalization: No [facility] Medical History Asthma Morbid obesity Obesity (BMI 30-39.9) Seasonal allergies Vaginal discharge Home Medications etonogestrel 68 mg subdermal implant 68 mg SQ DAILY 04/30/20 [History Last Taken Unknown] albuterol sulfate 90 mcg/actuation aerosol inhaler 1 inh inhalation Q6H PRN shortness of breath or wheezing #8.5 grams 02/13/21 [Rx Last Taken Unknown] loratadine 10 mg tablet (Allergy Relief (loratadine)) 10 mg PO DAILY #90 tabs 02/13/21 [Rx Last Taken Unknown] fluticasone propionate 44 mcg/actuation HFA aerosol inhaler 2 inh inhalation BID 3 months #10.6 grams 02/18/21 [Rx Last Taken Unknown] ciprofloxacin HCl 500 mg tablet 500 mg PO BID #20 TABLETS 06/08/22 [Rx Last Taken Unknown] metronidazole 500 mg tablet 500 mg PO Q6H #40 tabs 06/08/22 [Rx Last Taken Unknown] ondansetron 4 mg disintegrating tablet 4 mg PO Q8H PRN PRN Nausea #10 tabs 06/08/22 [Rx Last Taken Unknown] Allergy/AdvReac Type Severity Reaction Status Date / Time penicillin G Allergy Mild Hives Verified 08/18/22 18:42 venom-honey bee Allergy Swelling Verified 08/18/22 18:42 [bee venom (honey bee)] Family History Grandmother Asthma Arthritis Surgical History History of wisdom tooth extraction Social History Smoking Status: Current some day smoker tobacco type: cigarettes alcohol intake: never substance use type: does not use what type of physical activity do you participate in: walking frequency: 5-6 times per week ROS ROS ED Constitutional Constitutional ED: Denies chills, fever(s), subjective, sweats or weight loss Eyes Eyes: Denies blurry vision, change in vision or diplopia ENT ENT ED: Denies ear pain, rhinorrhea or sore throat Cardiovascular Cardiovascular: Reports palpitations and racing heartbeat; Denies chest pain Respiratory/Chest Respiratory/Chest: Denies cough, dyspnea or dyspnea on exertion Gastrointestinal Gastrointestinal: Reports nausea; Denies abdominal pain, diarrhea, melena or vomiting Genitourinary Genitourinary ED: Denies dysuria, urinary frequency or other Musculoskeletal Musculoskeletal: Denies arthralgias, back pain, myalgias or neck pain Integumentary Denies abscess or rash Neurologic Neurologic: Denies headache(s), paresthesias or weakness Psychiatric Psychiatric: Reports anxiety and depression; Denies suicidal ideation Endocrine Endocrinology: Denies cold intolerance or heat intolerance Hematologic/Lymphatic Hematologic/Lymphatic: Denies easy bleeding or easy bruising EXAM Physical Exam Const Vital Signs: 08/18/22 18:42 08/18/22 20:15 Temperature 98 F Temperature Source Temporal Pulse Rate 147 H 110 H Respiratory Rate 18 18 Blood Pressure 143/104 H 135/104 H Blood Pressure Mean 117 114 Pulse Ox 97 97 Oxygen Delivery Method Room Air Room Air Positive well nourished, well developed and obese Constitutional Narrative: Patient appears slightly nervous. General Appearance ED: well developed; Negative for pallor Nutritional Appearance: obese HEENT Reports moist mucous membranes HEENT Narrative: Head is normocephalic. Ears normal. Nares patent. Posterior pharynx is normal. atraumatic Eyes PERRL and EOMs intact bilaterally Eyes Narrative: There is no nystagmus. General Eye ED: Negative for pale conjunctiva or scleral icterus Neck no lymphadenopathy, supple and no JVD Lymph Lymphatic: no lymphadenopathy noted and lymphadenopathy Chest Wall inspection of chest normal and palpation of chest normal Resp normal respiratory effort and clear to auscultation bilaterally Cardio regular rhythm, S1 normal heart sound, S2 normal heart sound and no murmurs Rate: tachycardic GI soft to palpation, non-tender, non-distended and no masses Auscultation: hypoactive bowel sounds Back/Spine no CVA tenderness Cervical Spine: Negative for cervical spine tenderness Thoracic Spine / Upper Back: Negative for thoracic spinal tenderness Extremity General Extremety ED: Negative for edema or tenderness General Extremity: Negative for edema Neuro oriented x3, CN's II-XII intact bilaterally and no sensory deficits noted Neuro Narrative: DTR are brisk. There is no clonus. Dustin Coma Scale: document GCS findings Spontaneous Obeys Commands Oriented 15 Sensorium / Orientation: alert Speech: speech normal Motor Exam: strength 5/5 throughout Psych thought process normal Mood & Affect: depressed Skin General Skin Exam: Negative for jaundice or pallor Lesions: no lesions Rashes: no rashes MDM MDM MDM Narrative Medical decision making narrative: Patient is tachycardic. This may be due to methamphetamine use versus alcohol withdrawal. Will obtain EKG to determine rhythm. Appropriate blood work was obtained for addiction medicine. Since last menses is uncertain will obtain serum test. Lab Data Attestation: I reviewed the patient's lab results. Lab results narrative: White count is elevated 17.5 thousand. This is nonspecific. Comprehensive metabolic panel is unremarkable. Alcohol is nondetected. Serum test is negative. Labs: Laboratory Results - last 24 hr 08/18/22 08/18/22 08/18/22 20:29 20:29 20:29 WBC 17.5 H RBC 4.98 Hgb 14.1 Hct 44.7 MCV 89.8 MCH 28.3 MCHC 31.5 L RDW Std Deviation 45.5 H RDW Coeff of Jose 13.9 Plt Count 489 H MPV 10.7 Immature Gran % (Auto) 0.400 Neut % (Auto) 77.2 H Lymph % (Auto) 15.9 L [place] % (Auto) 6.1 Eos % (Auto) 0.1 Baso % (Auto) 0.3 Absolute Neuts (auto) 13.5 H Absolute Lymphs (auto) 2.78 Nucleated RBC % 0 Sodium 140 Potassium 3.4 L Chloride 106 Carbon Dioxide 24.0 Anion Gap 10 BUN 16 Creatinine 1.15 H Estim Creat Clear Calc 62.89 Est GFR (MDRD) Af Amer 72 Est GFR (MDRD) Non-Af 60 BUN/Creatinine Ratio 13.9 Glucose 128 H Calcium 9.8 Total Bilirubin 0.70 AST 20 ALT 28 Alkaline Phosphatase 75 Total Protein 8.9 H Albumin 4.8 Globulin 4.1 Albumin/Globulin Ratio 1.2 Serum , Qual Ethyl Alcohol < 3.0 08/18/22 20:29 WBC RBC Hgb Hct MCV MCH MCHC RDW Std Deviation RDW Coeff of Jose Plt Count MPV Immature Gran % (Auto) Neut % (Auto) Lymph % (Auto) [place] % (Auto) Eos % (Auto) Baso % (Auto) Absolute Neuts (auto) Absolute Lymphs (auto) Nucleated RBC % Sodium Potassium Chloride Carbon Dioxide Anion Gap BUN Creatinine Estim Creat Clear Calc Est GFR (MDRD) Af Amer Est GFR (MDRD) Non-Af BUN/Creatinine Ratio Glucose Calcium Total Bilirubin AST ALT Alkaline Phosphatase Total Protein Albumin Globulin Albumin/Globulin Ratio Serum , Qual NEGATIVE Ethyl Alcohol EKG Initial EKG: Attestation: I personally reviewed and interpreted this EKG as follows: Interpretation: Sinus Tachycardia (Heart rate is 119. EKG is otherwise unremarkable. CA interval is 126 ms. Cures duration 76 ms. QT duration 322 ms. Ada is normal.) Treatment and Re-Evaluation Narrative: Since patient is tachycardic with brisk reflexes will treat with p.o. phenobarb. Discharge Plan Dx/Rx/DC Orders Clinical Impression: Alcohol withdrawal, Obesity (BMI 30-39.9), Alcohol dependence, Cannabis use disorder, Methamphetamine use, Sinus tachycardia, Elevated blood pressure reading Disposition Disposition: Acute Care Hospital [facility]
[2022-08-18 20:15] VITALS: BP 135/104; PULSE 110; RESP 18; O2SAT 97
--- NOTE | 2022-08-18 20:33 | CM.ED ---
CAROLINE Note Referral Reason: [facility] Referral Source: Case Find SW met with patient to discuss the [facility] program. Patient reports they are detoxing from alcohol, meth and weed Patient said that she drinks the tall twisted tea and drinks a few of them a day . Patient said that she drank one early yesterday morning between 9-10am. Patient said that she had 1 year clean and relapsed this morning by doing a line of meth and using weed.. Patient reports she was previously in the residential treatment in [place] but would prefer [place] as they have more programs. Patient was advised that the [facility] program includes no outside food or visitors, no phone access and all personal items are secured. Patient said I need help. SW called Treatment Navigator and updated her regarding patient?s admission to [facility]. Plan: LAURA GEE
[2022-08-18 20:45] LABS: Absolute Lymphocyte Count 2.78 X10^3/uL (0.83-4.51); Absolute Neutrophil Count 13.5 X10^3/uL (2.0-7.7); Basophil# 0.06 X10^3/uL; Basophil% 0.3 % (0-1); Eosinophil# 0.01 X10^3/uL; Eosinophils% 0.1 % (0-5); Hematocrit 44.7 % (37-47); Hemoglobin 14.1 g/dL (12.0-15.0); Lymphocyte # 2.78 X10^3/ul (0.83-4.51); Lymphocyte % 15.9 % (19-41); Mean Corp Hgb Conc 31.5 g/dL (32-36); Mean Corpuscular Hgb 28.3 pg (27.0-32.0); Mean Corpuscular Volume 89.8 fL (81-99); Mean Platelet Vol. 10.7 fl (6.2-12.0); Monocyte# 1.07 X10^3/uL; Monocyte% 6.1 % (0-10); NRBC Flagged by Analyzer 0 % (0-5); Neutrophil # 13.54 X10^3/uL (2.7-7.7); Neutrophil % 77.2 % (47-70); Platelet Count 489 K/mm3 (150-450); RBC Distribution Width CV 13.9 % (11.6-14.6); RBC Distribution Width SD 45.5 fl (35.1-43.9); Red Blood Count 4.98 M/mm3 (4.2-5.4); White Blood Count 17.5 K/mm3 (4.4-11.0)
[2022-08-18 20:54] LABS: Alcohol, Blood (Medical)-Serum < 3.0 mg/dL
[2022-08-18 20:57] LABS: ALB/GLOB Ratio 1.2 RATIO (0.9-2.4); AST(SGOT) 20 U/L (15-37); Alanine Aminotransfer ALT/SGPT 28 U/L (13-56); Albumin, Serum 4.8 g/dL (3.2-5.0); Alkaline Phosphatase 75 U/L (45-117); Anion Gap 10 (5-15); BUN 16 mg/dL (7-18); BUN/Creat Ratio 13.9 RATIO (10-20); Calcium,Total 9.8 mg/dL (8.5-10.1); Chloride 106 mmol/L (98-107); Creatinine, Serum 1.15 mg/dL (0.55-1.02); EST Glomerular Filtration Rate 60 mL/min (>60); Est Glom Filt Rate - Afr Amer 72 mL/min (>60); Estimated Creatinine Clearance 62.89 ml/min; Globulin 4.1 g/dL (2.2-4.2); Glucose 128 mg/dL (74-106); Internal QC Validated? YES +Cl - CLEAR BKGD; Potassium 3.4 mmol/L (3.5-5.1); Pregnancy, Serum, hCG Quali. NEGATIVE Negative; Protein, Total 8.9 g/dL (6.4-8.2); Sodium Level 140 mmol/L (136-145)
--- NOTE | 2022-08-18 21:03 | HP.PCM.HOS_ITS ---
HPI - General General Date of Admission: 08/18/22 Date of Service: 08/18/22 Chief Complaint: Desire for detoxification HPI Narrative ANDREW LOMAS, is a 27 F with a significant history of tobacco abuse; marijuana abuse; methamphetamine abuse and alcohol abuse who presented to the emergency department with help with detoxification. Of note patient reports drinking about a bottle of [place] liquor every day. Also she drinks a couple of twisted teas each day. Further, she also drinks tequila. On presented while she reported to hospitalist that she is unemployed; she reported to the emergency department doctor that alcohol is affecting her work. She reports that she has been drinking since her teenage years. Last time she drank was on the morning on the day of presentation. She reports being in withdrawal. She reports her withdrawal symptoms as anxiety, malaise, nausea, lower back pain, and muscle twitching. Reportedly on presentation to the emergency department her heart rate was in the 140s. With IV fluids her h eart rate dropped into the 110s PFSH Medical History Asthma Morbid obesity Obesity (BMI 30-39.9) Seasonal allergies Vaginal discharge Home Medications albuterol sulfate 90 mcg/actuation aerosol inhaler 1 inh inhalation Q6H PRN shortness of breath or wheezing #8.5 grams 02/13/21 [Rx Last Taken 08/11/22] loratadine 10 mg tablet (Allergy Relief (loratadine)) 10 mg PO DAILY Check with primary doctor 08/18/22 [History Last Taken 08/18/22] Allergy/AdvReac Type Severity Reaction Status Date / Time penicillin G Allergy Mild Hives Verified 08/18/22 18:42 venom-honey bee Allergy Swelling Verified 08/18/22 18:42 [bee venom (honey bee)] Family History Grandmother Asthma Arthritis Surgical History History of wisdom tooth extraction Social History Smoking Status: Current some day smoker tobacco type: cigarettes alcohol intake: never substance use type: does not use what type of physical activity do you participate in: walking frequency: 5-6 times per week ROS ROS Narrative Pertinent positives and pertinent negatives as noted in HPI. All other systems were reviewed and are negative Vital Signs Vital Signs Vital Signs: 08/18/22 18:42 08/18/22 20:15 Temperature 98 F Temperature Source Temporal Pulse Rate 147 H 110 H Respiratory Rate 18 18 Blood Pressure 143/104 H 135/104 H Blood Pressure Mean 117 114 Pulse Ox 97 97 Oxygen Delivery Method Room Air Room Air Weight Weight: 105.5 kg Body Mass Index (BMI) 39.9 Physical Exam Narrative Physical exam: General: Well-nourished, well-developed. Head: Normocephalic, atraumatic, no tenderness Eyes: Vision is grossly intact. EOMI ENT, no trauma, moist mucous membranes, no rhinorrhea Neck: Nontender, No thyromegaly. CVS: Regular rate and rhythm. S1-S2 present. No murmur, gallop or rub. Respiratory : clear to auscultation bilaterally, chest wall nontender, no wheezing Abdomen: Soft, nontender, nondistended, normal bowel sounds, no masses : Deferred Back: Nontender, no CVA tenderness, no midline spinal tenderness, deformities, step-offs Extremities: Nontender full range of motion, no trauma Skin: Normal color, no trauma, abrasions Neuro: Alert, oriented, cranial nerves II through XII grossly intact. Psychiatry: Normal mood. Normal affect. Not depressed. Not anxious. Results Lab / Micro Data Result Diagrams: 08/18/22 20:29 08/18/22 20:29 Labs: Laboratory Results - last 24 hr 08/18/22 20:29: WBC 17.5 H, RBC 4.98, Hgb 14.1, Hct 44.7, MCV 89.8, MCH 28.3, MCHC 31.5 L, RDW Std Deviation 45.5 H, RDW Coeff of Jose 13.9, Plt Count 489 H, MPV 10.7, Immature Gran % (Auto) 0.400, Neut % (Auto) 77.2 H, Lymph % (Auto) 15.9 L, [place] % (Auto) 6.1, Eos % (Auto) 0.1, Baso % (Auto) 0.3, Absolute Neuts (auto) 13.5 H, Absolute Lymphs (auto) 2.78, Nucleated RBC % 0 08/18/22 20:29: Sodium 140, Potassium 3.4 L, Chloride 106, Carbon Dioxide 24.0, Anion Gap 10, BUN 16, Creatinine 1.15 H, Estim Creat Clear Calc 62.89, Est GFR (MDRD) Af Amer 72, Est GFR (MDRD) Non-Af 60, BUN/Creatinine Ratio 13.9, Glucose 128 H, Calcium 9.8, Total Bilirubin 0.70, AST 20, ALT 28, Alkaline Phosphatase 75, Total Protein 8.9 H, Albumin 4.8, Globulin 4.1, Albumin/Globulin Ratio 1.2 08/18/22 20:29: Ethyl Alcohol < 3.0 08/18/22 20:29: Serum , Qual NEGATIVE Assessment & Plan Assessment/Plan (1) Alcohol withdrawal: (2) Desire for detoxification: (3) Alcohol dependence: (4) Obesity (BMI 30-39.9): (5) Morbid obesity: (6) Methamphetamine use: (7) Cannabis use disorder: PLAN: Plan Alcohol dependence and desire for detoxification Patient with elevated blood pressure, and tachycardia on presentation Alcohol level on presentation was less than 3. Review of previous labs showed that patient was positive for cannabinoids and methamphetamine. Patient be started on phenobarbital and other adjunctive medications: Gabapentin as needed; dicyclomine as needed; Vistaril as needed; Imodium as needed; trazodone as needed; Zofran as needed; scheduled thiamine; and schedule folic acid. Monitor CIWA score Tobacco abuse Counseled Nicotine patch prescribed. Methamphetamine abuse Counseled Marijuana abuse Counseled Acute on chronic leukocytosis White count on presentation was 17,500. Acute phase likely reactive. Trend. Morbid Obesity: BMI: 39.9 kg/m?. Complicates care. Lifestyle modification recommended. Mild hypokalemia Clinical monitoring EVANS Creatinine on presentation was 1.15. Baseline creatinine is around 0.82. Gentle IV fluids ordered. Trend BMP DVT prophylaxis Low risk Encourage to ambulate Charges/Coding Visit Charges Inpatient E&M: 47425 Init Hosp L3
[2022-08-18] MEDS: Ondansetron ODT 4 MG Tablet PO (21:07)
[2022-08-18] MEDS: Phenobarbital 32.4 MG Tablet 97.2 MG PO (21:07)
[2022-08-18] MEDS: 0.9% Normal Saline 1,000 ML 999 ML IV (21:07)
[2022-08-18 21:14] VITALS: BP 141/99; PULSE 125; RESP 18; TEMP 36.7; O2SAT 98
[2022-08-18 21:15] VITALS: PULSE 125
--- NOTE | 2022-08-18 21:26 | CM.ED ---
CAROLINE Note: CAROLINE spoke to MD Lisa. MD Lisa stated that patient is not being seen for MH as listed on tracker but for detox. No mental Health assessment needed. Bette GEE
[2022-08-18 22:23] VITALS: BMI 18.1
[2022-08-18 22:40] VITALS: BP 149/103; PULSE 97; RESP 17; TEMP 36.6; O2SAT 100
[2022-08-18] MEDS: Phenobarbital 32.4 MG Tablet PO (23:22)
[2022-08-18] MEDS: Ondansetron 8 MG Tablet PO (23:22)
[2022-08-18] MEDS: Gabapentin 300 MG Capsule PO (23:22)
[2022-08-18] MEDS: Lactated Ringers 1,000 ML 75 ML IV (23:25)
[2022-08-19] VITALS (7 sets, daily range): BP systolic 118–133; BP diastolic 78–93; PULSE 93–115; RESP 16–18; TEMP 36.5–37; O2SAT 94–100
[2022-08-19] MEDS: Phenobarbital 32.4 MG Tablet PO ×6 (03:15→22:58)
[2022-08-19] MEDS: hydrOXYzine PAM 25 MG Capsule 50 MG PO ×2 (03:15→21:23)
[2022-08-19 06:37] LABS: Squamous Epithelial Cells - UA 0 SEEN /hpf (5-10); White Blood Cells 0 SEEN /hpf (0-5)
[2022-08-19 06:38] LABS: Color, Urine Yellow (Yellow); Glucose, Dipstick Normal (Normal); Leukocyte Esterase-Dipstick Negative /ul (Negative); Nitrite-Dipstick Negative (Negative); Occult Blood-Urine 25 /ul (Negative); Protein-Dipstick 30 mg/dl (Negative); Specific Gravity, Urine 1.025 (1.002-1.030); Urine Bilirubin Dipstick Negative (Negative); Urine Clarity Clear (Clear); Urine Urobilinogen Normal (Normal)
[2022-08-19 06:42] LABS: Absolute Lymphocyte Count 3.11 X10^3/uL (0.83-4.51); Absolute Neutrophil Count 9.7 X10^3/uL (2.0-7.7); Basophil# 0.07 X10^3/uL; Basophil% 0.5 % (0-1); Eosinophil# 0.09 X10^3/uL; Eosinophils% 0.6 % (0-5); Hematocrit 39.5 % (37-47); Hemoglobin 12.9 g/dL (12.0-15.0); Lymphocyte # 3.11 X10^3/ul (0.83-4.51); Lymphocyte % 22.1 % (19-41); Mean Corp Hgb Conc 32.7 g/dL (32-36); Mean Corpuscular Hgb 28.8 pg (27.0-32.0); Mean Corpuscular Volume 88.2 fL (81-99); Mean Platelet Vol. 10.4 fl (6.2-12.0); Monocyte# 1.05 X10^3/uL; Monocyte% 7.5 % (0-10); NRBC Flagged by Analyzer 0 % (0-5); Neutrophil # 9.69 X10^3/uL (2.7-7.7); Neutrophil % 68.9 % (47-70); Platelet Count 360 K/mm3 (150-450); RBC Distribution Width CV 13.7 % (11.6-14.6); RBC Distribution Width SD 44.7 fl (35.1-43.9); Red Blood Count 4.48 M/mm3 (4.2-5.4); White Blood Count 14.1 K/mm3 (4.4-11.0)
[2022-08-19 06:47] LABS: Ketone-Dipstick 150 mg/dl (Negative)
[2022-08-19 07:00] LABS: Amphetamine Urine VISTA POSITIVE (<1000 ng/mL); Bacteria 1+ /hpf (None Seen); Barbiturate Urine VISTA POSITIVE (< 200 ng/mL); Benzodiazepine Urine VISTA NEGATIVE (< 200 ng/mL); Cocaine Urine VISTA NEGATIVE (< 300 ng/mL); Ecstacy Urine VISTA POSITIVE (< 500 ng/mL); Methadone Urine VISTA NEGATIVE (< 300 ng/mL); Mucous, Urine 1+ /hpf (<or=2+); PCP Urine VISTA NEGATIVE (< 25 ng/mL); Red Blood Cells-Urine 0-5 SEEN /hpf (0-5); THC Urine VISTA POSITIVE (< 50 ng/mL); Vista UDS pH Range 5
[2022-08-19] MEDS: Albuterol 2.5 MG/3 ML VIAL.NEB. INHALATION (07:00)
[2022-08-19] MEDS: Thiamine Hydrochloride 100 MG Tablet PO (08:01)
[2022-08-19] MEDS: Loratadine 10 MG Tablet PO (08:01)
[2022-08-19] MEDS: Folic Acid 1 MG Tablet PO (08:01)
[2022-08-19] MEDS: Gabapentin 300 MG Capsule PO ×2 (08:11→18:07)
[2022-08-19] MEDS: Ensure Plus High Protein 120 ML LIQUID PO ×4 (08:14→21:24)
[2022-08-19] MEDS: Potassium Chloride Oral Tablet 20 MEQ 40 MEQ PO (10:03)
[2022-08-19 11:08] LABS: Chlamydia Trachomatis by PCR Negative (Negative); Neisserai gonorrhoeae by PCR Negative (Negative); Probe Check PASS; Sample Adequacy Control PASS; Specimen Processing Control PASS
--- NOTE | 2022-08-19 12:29 | PN.HOSP_ITS ---
Reason for Visit Reason for Visit: Diagnoses Morbid (severe) obesity due to excess calories (08/18/22) Obesity, unspecified (08/18/22) Alcohol dependence, uncomplicated (08/18/22) Alcohol use, unspecified with withdrawal, unspecified (08/18/22) Cannabis use, unspecified, uncomplicated (08/18/22) Other stimulant abuse, uncomplicated (08/18/22) Subjective Subjective Reports feeling generally unwell, poor appetite, feels slightly shaky, received a phenobarbital and feels she is tolerating it Objective Data Objective Data Vital Signs: Vital Signs Temp Pulse Resp BP Pulse Ox O2 Del Method 98.3 F 113 H 18 119/93 H 100 Room Air 08/19/22 10:00 08/19/22 10:00 08/19/22 10:00 08/19/22 10:00 08/19/22 10:00 08/19/22 10:00 Oxygen Delivery Method Room Air Weight: 105.5 kg Body Mass Index (BMI) 18.1 Intake & Output: Intake and Output for Last 24 Hours 08/17/22 08/18/22 08/19/22 23:59 23:59 23:59 Intake Total 1000 / 1000 1482.5 / 1482.5 Output Total 200 / 200 Balance 1000 / 1000 1282.5 / 1282.5 Lab / Micro Data Result Diagrams: 08/19/22 06:08 08/18/22 20:29 Labs: Laboratory Results - last 24 hr 08/18/22 20:29: WBC 17.5 H, RBC 4.98, Hgb 14.1, Hct 44.7, MCV 89.8, MCH 28.3, MCHC 31.5 L, RDW Std Deviation 45.5 H, RDW Coeff of Jose 13.9, Plt Count 489 H, MPV 10.7, Immature Gran % (Auto) 0.400, Neut % (Auto) 77.2 H, Lymph % (Auto) 15.9 L, [place] % (Auto) 6.1, Eos % (Auto) 0.1, Baso % (Auto) 0.3, Absolute Neuts (auto) 13.5 H, Absolute Lymphs (auto) 2.78, Nucleated RBC % 0 08/18/22 20:29: Sodium 140, Potassium 3.4 L, Chloride 106, Carbon Dioxide 24.0, Anion Gap 10, BUN 16, Creatinine 1.15 H, Estim Creat Clear Calc 62.89, Est GFR (MDRD) Af Amer 72, Est GFR (MDRD) Non-Af 60, BUN/Creatinine Ratio 13.9, Glucose 128 H, Calcium 9.8, Total Bilirubin 0.70, AST 20, ALT 28, Alkaline Phosphatase 75, Total Protein 8.9 H, Albumin 4.8, Globulin 4.1, Albumin/Globulin Ratio 1.2 08/18/22 20:29: Ethyl Alcohol < 3.0 08/18/22 20:29: Serum , Qual NEGATIVE 08/19/22 06:08: WBC 14.1 H, RBC 4.48, Hgb 12.9, Hct 39.5, MCV 88.2, MCH 28.8, MCHC 32.7, RDW Std Deviation 44.7 H, RDW Coeff of Jose 13.7, Plt Count 360, MPV 10.4, Immature Gran % (Auto) 0.400, Neut % (Auto) 68.9, Lymph % (Auto) 22.1, [place] % (Auto) 7.5, Eos % (Auto) 0.6, Baso % (Auto) 0.5, Absolute Neuts (auto) 9.7 H, Absolute Lymphs (auto) 3.11, Nucleated RBC % 0 08/19/22 06:25: Urine Opiates Screen NEGATIVE, Urine Methadone Screen NEGATIVE, Ur Barbiturates Screen POSITIVE H, Ur Phencyclidine Scrn NEGATIVE, Ur Am phetamines Screen POSITIVE H, MDMA (Ecstasy) Screen POSITIVE H, U Benzodiazepines Scrn NEGATIVE, Urine Cocaine Screen NEGATIVE, U Cannabinoids Screen POSITIVE H, Ur Drug Screen Comment 08/19/22 06:25: Urine Color Yellow, Urine Clarity Clear, Urine pH 6.0, Ur Specific [place] 1.025, Urine Protein 30 H, Urine Glucose (UA) Normal, Urine Ketones 150 A*, Urine Occult Blood 25 H, Urine Nitrite Negative, Urine Bilirubin Negative, Urine Urobilinogen Normal, Ur Leukocyte Esterase Negative, Urine RBC 0-5 SEEN, Urine WBC 0 SEEN, Ur Squamous Epith Cells 0 SEEN, Urine Bacteria 1+, Urine Mucus 1+ 08/19/22 08:05: Chlam trachomat DNA PCR Negative, N.gonorrhoeae DNA (PCR) Negative Physical Exam Narrative General: Alert, oriented HEENT: Atraumatic, normocephalic Eyes: Anicteric, normal conjunctiva, extraocular movements grossly intact Neck: Supple Respiratory: Clear to auscultation bilaterally, normal respiratory effort Cardiovascular: Mildly tachycardic and rhythm GI: Soft, nontender, nondistended Extremities: No edema Musculoskeletal: Moving all extremities Neuro: No overt focal neurological deficits Skin: No rashes appreciated Psych: More cooperative as exam continued Assessment & Plan Assessment/Plan (1) Alcohol withdrawal: (2) Desire for detoxification: (3) Alcohol dependence: (4) Obesity (BMI 30-39.9): (5) Morbid obesity: (6) Methamphetamine use: (7) Cannabis use disorder: PLAN: Plan #Alcohol dependence and desire for detoxification Patient with elevated blood pressure, and tachycardia on presentation Alcohol level on presentation was less than 3. Review of previous labs showed that patient was positive for cannabinoids and methamphetamine. Patient be started on phenobarbital and other adjunctive medications: Gabapentin as needed; dicyclomine as needed; Vistaril as needed; Imodium as needed; trazodone as needed; Zofran as needed; scheduled thiamine; and schedule folic acid. Monitor CIWA score -08/19: Continue phenobarbital taper, patient unsure if she wants inpatient versus outpatient after detox, will continue discussion as taper continues #Tobacco abuse Counseled Nicotine patch prescribed. #Methamphetamine abuse Counseled #Marijuana abuse Counseled #Acute on chronic leukocytosis White count on presentation was 17,500. Acute phase likely reactive. Trend. -08/19: Improving, no signs or symptoms of infection #Morbid Obesity: BMI: 39.9 kg/m?. Complicates care. Lifestyle modification recommended. #Mild hypokalemia Clinical monitoring -08/19: Replaced #EVANS Creatinine on presentation was 1.15. Baseline creatinine is around 0.82. Gentle IV fluids ordered. Trend BMP -08/19: We will recheck labs in a.m. #DVT prophylaxis Low risk Encourage to ambulate Charges/Coding Visit Charges Inpatient E&M: 80249 Subs Hosp L2
[2022-08-19] MEDS: Lactated Ringers 1,000 ML 75 ML IV (14:27)
[2022-08-19] MEDS: Dicyclomine 10 MG Capsule 20 MG PO (21:23)
[2022-08-19] MEDS: Ondansetron 8 MG Tablet PO (21:23)
[2022-08-20 03:00] VITALS: BP 93/60; PULSE 92; RESP 18; TEMP 36.4; O2SAT 96
[2022-08-20] MEDS: Phenobarbital 32.4 MG Tablet PO ×6 (03:00→21:39)
[2022-08-20] MEDS: Ondansetron 8 MG Tablet PO (06:50)
[2022-08-20] MEDS: Gabapentin 300 MG Capsule PO (06:50)
[2022-08-20 06:52] LABS: Absolute Lymphocyte Count 2.38 X10^3/uL (0.83-4.51); Absolute Neutrophil Count 3.3 X10^3/uL (2.0-7.7); Basophil# 0.05 X10^3/uL; Basophil% 0.8 % (0-1); Eosinophil# 0.32 X10^3/uL; Eosinophils% 4.8 % (0-5); Hematocrit 41.2 % (37-47); Hemoglobin 12.9 g/dL (12.0-15.0); Lymphocyte # 2.38 X10^3/ul (0.83-4.51); Lymphocyte % 35.9 % (19-41); Mean Corp Hgb Conc 31.3 g/dL (32-36); Mean Corpuscular Hgb 28.7 pg (27.0-32.0); Mean Corpuscular Volume 91.6 fL (81-99); Mean Platelet Vol. 10.6 fl (6.2-12.0); Monocyte# 0.59 X10^3/uL; Monocyte% 8.9 % (0-10); NRBC Flagged by Analyzer 0 % (0-5); Neutrophil # 3.26 X10^3/uL (2.7-7.7); Neutrophil % 49.1 % (47-70); Platelet Count 297 K/mm3 (150-450); RBC Distribution Width CV 13.4 % (11.6-14.6); RBC Distribution Width SD 45.6 fl (35.1-43.9); White Blood Count 6.6 K/mm3 (4.4-11.0)
[2022-08-20 07:44] LABS: ALB/GLOB Ratio 1.1 RATIO (0.9-2.4); AST(SGOT) 20 U/L (15-37); Alanine Aminotransfer ALT/SGPT 27 U/L (13-56); Albumin, Serum 3.4 g/dL (3.2-5.0); Alkaline Phosphatase 63 U/L (45-117); Anion Gap 3 (5-15); BUN 12 mg/dL (7-18); BUN/Creat Ratio 15.1 RATIO (10-20); Calcium,Total 8.9 mg/dL (8.5-10.1); Chloride 108 mmol/L (98-107); EST Glomerular Filtration Rate 91 mL/min (>60); Est Glom Filt Rate - Afr Amer 110 mL/min (>60); Estimated Creatinine Clearance 90.41 ml/min; Globulin 3.1 g/dL (2.2-4.2); Glucose 77 mg/dL (74-106); Protein, Total 6.5 g/dL (6.4-8.2); Sodium Level 139 mmol/L (136-145)
--- NOTE | 2022-08-20 08:11 | PN.HOSP_ITS ---
Reason for Visit Reason for Visit: Diagnoses Morbid (severe) obesity due to excess calories (08/18/22) Obesity, unspecified (08/18/22) Alcohol dependence, uncomplicated (08/18/22) Alcohol use, unspecified with withdrawal, unspecified (08/18/22) Cannabis use, unspecified, uncomplicated (08/18/22) Other stimulant abuse, uncomplicated (08/18/22) Subjective Subjective Has a headache today and feels generally not particularly well and has been havi ng some muscle cramps, additionally has not moved her bowels Objective Data Objective Data Vital Signs: Vital Signs Temp Pulse Resp BP Pulse Ox O2 Del Method 97.6 F L 92 18 93/60 96 Room Air 08/20/22 03:00 08/20/22 03:00 08/20/22 03:00 08/20/22 03:00 08/20/22 03:00 08/20/22 03:00 Oxygen Delivery Method Room Air Weight: 105.5 kg Body Mass Index (BMI) 18.1 Intake & Output: Intake and Output for Last 24 Hours 08/18/22 08/19/22 08/20/22 23:59 23:59 23:59 Intake Total 1000 / 1000 1928.75 / 2328.75 800 / 800 Output Total 200 / 200 Balance 1000 / 1000 1728.75 / 2128.75 800 / 800 Lab / Micro Data Result Diagrams: 08/20/22 06:35 08/20/22 06:35 Labs: Laboratory Results - last 24 hr 08/19/22 08:05: Chlam trachomat DNA PCR Negative, N.gonorrhoeae DNA (PCR) Negative 08/20/22 06:35: WBC 6.6, RBC 4.50, Hgb 12.9, Hct 41.2, MCV 91.6, MCH 28.7, MCHC 31.3 L, RDW Std Deviation 45.6 H, RDW Coeff of Jose 13.4, Plt Count 297, MPV 10.6, Immature Gran % (Auto) 0.500, Neut % (Auto) 49.1, Lymph % (Auto) 35.9, [place] % (Auto) 8.9, Eos % (Auto) 4.8, Baso % (Auto) 0.8, Absolute Neuts (auto) 3.3, Absolute Lymphs (auto) 2.38, Nucleated RBC % 0 08/20/22 06:35: Sodium 139, Potassium 4.0, Chloride 108 H, Carbon Dioxide 28.0, Anion Gap 3 L, BUN 12, Creatinine 0.80, Estim Creat Clear Calc 90.41, Est GFR (MDRD) Af Amer 110, Est GFR (MDRD) Non-Af 91, BUN/Creatinine Ratio 15.1, Glucose 77, Calcium 8.9, Total Bilirubin 0.50, AST 20, ALT 27, Alkaline Phosphatase 63, Total Protein 6.5, Albumin 3.4, Globulin 3.1, Albumin/Globulin Ratio 1.1 Physical Exam Narrative General: Alert, oriented, no apparent distress HEENT: Atraumatic, normocephalic Eyes: extraocular movements grossly intact Neck: Supple Respiratory: normal respiratory effort Cardiovascular: no edema appreciated GI: nondistended Extremities: Moving all extremities Neuro: No overt focal neurological deficits Psych: Cooperative Assessment & Plan Assessment/Plan (1) Alcohol withdrawal: (2) Desire for detoxification: (3) Alcohol dependence: (4) Obesity (BMI 30-39.9): (5) Morbid obesity: (6) Methamphetamine use: (7) Cannabis use disorder: PLAN: Plan #Alcohol dependence and desire for detoxification Patient with elevated blood pressure, and tachycardia on presentation Alcohol level on presentation was less than 3. Review of previous labs showed that patient was positive for cannabinoids and methamphetamine. Patient be started on phenobarbital and other adjunctive medications: Gabapentin as needed; dicyclomine as needed; Vistaril as needed; Imodium as needed; trazodone as needed; Zofran as needed; scheduled thiamine; and schedule folic acid. Monitor CIWA score -08/19: Continue phenobarbital taper, patient unsure if she wants inpatient versus outpatient after detox, will continue discussion as taper continues -08/20: Continue taper and supportive care #Tobacco abuse Counseled Nicotine patch prescribed. #Methamphetamine abuse Counseled #Marijuana abuse Counseled #Acute on chronic leukocytosis White count on presentation was 17,500. Acute phase likely reactive. Trend. -08/19: Improving, no signs or symptoms of infection #Obesity: BMI: 39.9 kg/m?. Complicates care. Lifestyle modification recommended. #Mild hypokalemia Clinical monitoring -08/19: Replaced #EVANS Creatinine on presentation was 1.15. Baseline creatinine is around 0.82. Gentle IV fluids ordered. Trend BMP -08/19: We will recheck labs in a.m. -08/20: Improved, encourage p.o. #DVT prophylaxis Low risk Encourage to ambulate Charges/Coding Visit Charges Inpatient E&M: 74777 Subs Hosp L2
[2022-08-20] MEDS: Thiamine Hydrochloride 100 MG Tablet PO (08:50)
[2022-08-20] MEDS: Folic Acid 1 MG Tablet PO (08:50)
[2022-08-20] MEDS: Polyethylene Glycol 3350 17 GM PACKET 34 GM PO (08:50)
[2022-08-20] MEDS: Loratadine 10 MG Tablet PO (08:50)
[2022-08-20] MEDS: Ensure Plus High Protein 120 ML LIQUID PO ×3 (09:00→17:53)
[2022-08-20] MEDS: Ibuprofen 400 MG Tablet PO (09:51)
[2022-08-20 10:00] VITALS: BP 116/66; PULSE 87; RESP 18; TEMP 37.2; O2SAT 97
[2022-08-20 16:00] VITALS: BP 91/62; PULSE 78; RESP 16; TEMP 36.6; O2SAT 97
[2022-08-20 21:36] VITALS: BP 102/62; PULSE 80; RESP 18; TEMP 36.8; O2SAT 96
[2022-08-20] MEDS: traZODone 100 MG Tablet PO (21:39)
[2022-08-20] MEDS: hydrOXYzine PAM 25 MG Capsule 50 MG PO (21:39)
[2022-08-21 03:30] VITALS: BP 92/64; PULSE 77; RESP 18; TEMP 36.9; O2SAT 95
[2022-08-21] MEDS: Phenobarbital 32.4 MG Tablet PO ×4 (03:31→17:52)
[2022-08-21 09:34] VITALS: BP 92/62; PULSE 82; RESP 16; TEMP 36.6; O2SAT 93
[2022-08-21] MEDS: Loratadine 10 MG Tablet PO (09:48)
[2022-08-21] MEDS: Folic Acid 1 MG Tablet PO (09:49)
[2022-08-21] MEDS: Polyethylene Glycol 3350 17 GM PACKET 34 GM PO (09:49)
[2022-08-21] MEDS: Ensure Plus High Protein 120 ML LIQUID PO ×3 (09:49→17:52)
[2022-08-21] MEDS: Thiamine Hydrochloride 100 MG Tablet PO (09:49)
[2022-08-21 14:36] VITALS: BP 86/52; PULSE 77; RESP 16; TEMP 36.8; O2SAT 97
--- NOTE | 2022-08-21 18:03 | PN.HOSP_ITS ---
Reason for Visit Reason for Visit: Diagnoses Morbid (severe) obesity due to excess calories (08/18/22) Obesity, unspecified (08/18/22) Alcohol dependence, uncomplicated (08/18/22) Alcohol use, unspecified with withdrawal, unspecified (08/18/22) Cannabis use, unspecified, uncomplicated (08/18/22) Other stimulant abuse, uncomplicated (08/18/22) Subjective Subjective Resting comfortably, had no complaints Objective Data Objective Data Vital Signs: Vital Signs Temp Pulse Resp BP Pulse Ox O2 Del Method 98.2 F 77 16 86/52 L 97 Room Air 08/21/22 14:36 08/21/22 14:36 08/21/22 14:36 08/21/22 14:36 08/21/22 14:36 08/21/22 14:36 Oxygen Delivery Method Room Air Weight: 105.5 kg Body Mass Index (BMI) 18.1 Intake & Output: Intake and Output for Last 24 Hours 08/19/22 08/20/22 08/21/22 23:59 23:59 23:59 Intake Total 1928.75 / 2328.75 800 / 800 Output Total 200 / 200 Balance 1728.75 / 2128.75 800 / 800 Lab / Micro Data Result Diagrams: 08/20/22 06:35 08/20/22 06:35 Physical Exam Narrative General: Alert, oriented, no apparent distress HEENT: Atraumatic, normocephalic Eyes: extraocular movements grossly intact Neck: Supple Respiratory: normal respiratory effort Cardiovascular: no edema appreciated GI: nondistended Extremities: Moving all extremities Neuro: No overt focal neurological deficits Psych: Cooperative Assessment & Plan Assessment/Plan (1) Alcohol withdrawal: (2) Desire for detoxification: (3) Alcohol dependence: (4) Obesity (BMI 30-39.9): (5) Morbid obesity: (6) Methamphetamine use: (7) Cannabis use disorder: PLAN: Plan #Alcohol dependence and desire for detoxification Patient with elevated blood pressure, and tachycardia on presentation Alcohol level on presentation was less than 3. Review of previous labs showed that patient was positive for cannabinoids and methamphetamine. Patient be started on phenobarbital and other adjunctive medications: Gabapentin as needed; dicyclomine as needed; Vistaril as needed; Imodium as needed; trazodone as needed; Zofran as needed; scheduled thiamine; and schedule folic acid. Monitor CIWA score -08/19: Continue phenobarbital taper, patient unsure if she wants inpatient versus outpatient after detox, will continue discussion as taper continues -08/20: Continue taper and supportive care -08/21: Continue taper and supportive care. Did have a blood pressure that was sl ightly low, is possible it is the phenobarbital but will give fluid and we will check a.m. labs, not tachycardic and not febrile, did not have any specific complaints during evaluation #Tobacco abuse Counseled Nicotine patch prescribed. #Methamphetamine abuse Counseled #Marijuana abuse Counseled #Acute on chronic leukocytosis White count on presentation was 17,500. Acute phase likely reactive. Trend. -08/19: Improving, no signs or symptoms of infection #Obesity: BMI: 39.9 kg/m?. Complicates care. Lifestyle modification recommended. #Mild hypokalemia Clinical monitoring -08/19: Replaced #EVANS Creatinine on presentation was 1.15. Baseline creatinine is around 0.82. Gentle IV fluids ordered. Trend BMP -08/19: We will recheck labs in a.m. -08/20: Improved, encourage p.o. #DVT prophylaxis Low risk Encourage to ambulate Charges/Coding Visit Charges Inpatient E&M: 22392 Subs Hosp L2
[2022-08-21 19:30] VITALS: BP 100/57; PULSE 88; RESP 16; TEMP 36.9; O2SAT 99
[2022-08-21 21:29] VITALS: BP 103/65; PULSE 76; RESP 18; TEMP 36.8; O2SAT 97
[2022-08-21] MEDS: hydrOXYzine PAM 25 MG Capsule 50 MG PO (21:31)
[2022-08-21] MEDS: traZODone 100 MG Tablet PO (21:31)
[2022-08-22] MEDS: Phenobarbital 32.4 MG Tablet PO ×3 (01:43→12:08)
[2022-08-22 02:00] VITALS: BP 102/62; PULSE 70; RESP 18; TEMP 36.5; O2SAT 97
[2022-08-22 06:49] LABS: Absolute Lymphocyte Count 2.36 X10^3/uL (0.83-4.51); Basophil# 0.04 X10^3/uL; Basophil% 0.6 % (0-1); Eosinophil# 0.44 X10^3/uL; Eosinophils% 6.9 % (0-5); Hematocrit 37.9 % (37-47); Hemoglobin 12.1 g/dL (12.0-15.0); Lymphocyte # 2.36 X10^3/ul (0.83-4.51); Lymphocyte % 36.9 % (19-41); Mean Corp Hgb Conc 31.9 g/dL (32-36); Mean Corpuscular Hgb 28.6 pg (27.0-32.0); Mean Corpuscular Volume 89.6 fL (81-99); Monocyte# 0.54 X10^3/uL; Monocyte% 8.4 % (0-10); NRBC Flagged by Analyzer 0.3 % (0-5); Neutrophil % 46.9 % (47-70); Platelet Count 305 K/mm3 (150-450); RBC Distribution Width CV 13.1 % (11.6-14.6); RBC Distribution Width SD 42.7 fl (35.1-43.9); Red Blood Count 4.23 M/mm3 (4.2-5.4); White Blood Count 6.4 K/mm3 (4.4-11.0)
[2022-08-22 07:16] LABS: ALB/GLOB Ratio 1.1 RATIO (0.9-2.4); AST(SGOT) 11 U/L (15-37); Alanine Aminotransfer ALT/SGPT 21 U/L (13-56); Albumin, Serum 3.2 g/dL (3.2-5.0); Alkaline Phosphatase 61 U/L (45-117); Anion Gap 6 (5-15); BUN 11 mg/dL (7-18); BUN/Creat Ratio 15.9 RATIO (10-20); Calcium,Total 8.4 mg/dL (8.5-10.1); Chloride 107 mmol/L (98-107); Creatinine, Serum 0.69 mg/dL (0.55-1.02); EST Glomerular Filtration Rate 107 mL/min (>60); Est Glom Filt Rate - Afr Amer 130 mL/min (>60); Estimated Creatinine Clearance 104.82 ml/min; Globulin 2.9 g/dL (2.2-4.2); Glucose 90 mg/dL (74-106); Potassium 4.2 mmol/L (3.5-5.1); Protein, Total 6.1 g/dL (6.4-8.2); Sodium Level 140 mmol/L (136-145)
[2022-08-22 08:28] VITALS: BP 106/73; PULSE 90; RESP 16; TEMP 36.6; O2SAT 98
[2022-08-22] MEDS: Thiamine Hydrochloride 100 MG Tablet PO (08:36)
[2022-08-22] MEDS: Folic Acid 1 MG Tablet PO (08:36)
[2022-08-22] MEDS: Polyethylene Glycol 3350 17 GM PACKET 34 GM PO (10:27)
[2022-08-22] MEDS: Loratadine 10 MG Tablet PO (10:28)
[2022-08-22] MEDS: Ensure Plus High Protein 120 ML LIQUID PO (10:28)
--- NOTE | 2022-08-22 12:32 | DCINST_ITS ---
Discharge Instructions Diet Discharge Diet: No restrictions Activity Discharge Activity: Return to Normal Activity Follow Up Care Test Results: Test results from this visit will be discussed in further detail at your follow- up appointment, if applicable. Discharge Plan Admission Admit Date/Time: 08/18/22 21:04 Primary Reason for Your Visit: Alcohol detox Attending Provider: Emily Godfrey Primary Care Provider: Nanci Corral Consulting Providers: Enzo Vargas Patient Instructions: Addiction: Your Treatment Options Discharge Orders/Prescriptions Prescriptions: Continued albuterol sulfate 90 mcg/actuation HFA aerosol inhaler 1 inh inhalation Q6H PRN (Reason: shortness of breath or wheezing) Qty: 8.5 3RF loratadine [Allergy Relief (loratadine)] 10 mg tablet 10 mg PO DAILY Referrals / Follow Up: Nanci Corral MD [Primary Care Provider] - Within 1 Week Disposition Disposition (needs filled in before D/C Order can be placed): Inpatient Rehab Unit/Facility
--- NOTE | 2022-08-22 12:34 | DS.PCM_ITS ---
Providers Date of Admission: 08/18/22 Date of Discharge: 08/22/22 Primary Care Physician: Dr. Nanci Corral MD Reason For Visit: DESIRE FOR ALCOHOL DETOXIFICATION Diagnosis Discharge Diagnosis (1) Alcohol withdrawal: Status: Acute Code(s): F10.939 - Alcohol use, unspecified with withdrawal, unspecified (2) Desire for detoxification: Status: Acute (3) Alcohol dependence: Status: Acute Code(s): F10.20 - Alcohol dependence, uncomplicated (4) Obesity (BMI 30-39.9): Status: Chronic Code(s): E66.9 - Obesity, unspecified (5) Morbid obesity: Status: Chronic Code(s): E66.01 - Morbid (severe) obesity due to excess calories (6) Methamphetamine use: Status: Acute Code(s): F15.10 - Other stimulant abuse, uncomplicated (7) Cannabis use disorder: Status: Acute Code(s): F12.90 - Cannabis use, unspecified, uncomplicated Plan Morbid (severe) obesity due to excess calories (08/18/22) Obesity, unspecified (08/18/22) Alcohol dependence, uncomplicated (08/18/22) Alcohol use, unspecified with withdrawal, unspecified (08/18/22) Cannabis use, unspecified, uncomplicated (08/18/22) Other stimulant abuse, uncomplicated (08/18/22) Tobacco use -EVANS?resolved Medications at Discharge Home Medications albuterol sulfate 90 mcg/actuation aerosol inhaler 1 inh inhalation Q6H PRN michael rtness of breath or wheezing #8.5 grams 02/13/21 loratadine 10 mg tablet (Allergy Relief (loratadine)) 10 mg PO DAILY Check with primary doctor 08/18/22 Hospital Course Summary of Care Provided Minutes Spent on Discharge: 36 Hospital Course: ANDREW LOMAS, is a 27 F with a significant history of tobacco abuse; marijuana abuse; methamphetamine abuse and alcohol abuse who presented to the emergency department 08/18/22 with help with detoxification for her alcohol abuse. On admission she was tachycardic with an elevated blood pressure and alcohol was less than 3. She additionally has struggled with amphetamines and marijuana. She was started on phenobarbital taper. She did have elevated leukocytosis on arrival but no infection was found and this improved. Additionally had EVANS on admission but this improved with fluids. No remarkable events during admission and on day of discharge had no new complaints. She is discharged to [facility] for inpatient rehab. Physical Exam Narrative General: Alert, oriented, no apparent distress HEENT: Atraumatic, normocephalic Eyes: extraocular movements grossly intact Neck: Supple Respiratory: normal respiratory effort Cardiovascular: no edema appreciated GI: nondistended Extremities: Moving all extremities Neuro: No overt focal neurological deficits Psych: Cooperative Weight / BMI Weight Weight: 105.5 kg Body Mass Index (BMI) 18.1 ABG / Lab / Microbiology Data Result Diagrams: 08/22/22 06:32 08/22/22 06:32 Laboratory: Laboratory Results - last 24 hr 08/22/22 06:32: WBC 6.4, RBC 4.23, Hgb 12.1, Hct 37.9, MCV 89.6, MCH 28.6, MCHC 31.9 L, RDW Std Deviation 42.7, RDW Coeff of Jose 13.1, Plt Count 305, MPV 11.0, Immature Gran % (Auto) 0.300, Neut % (Auto) 46.9 L, Lymph % (Auto) 36.9, [place] % (Auto) 8.4, Eos % (Auto) 6.9 H, Baso % (Auto) 0.6, Absolute Neuts (auto) 3.0, Absolute Lymphs (auto) 2.36, Nucleated RBC % 0.3 08/22/22 06:32: Sodium 140, Potassium 4.2, Chloride 107, Carbon Dioxide 27.0, Anion Gap 6, BUN 11, Creatinine 0.69, Estim Creat Clear Calc 104.82, Est GFR (MDRD) Af Amer 130, Est GFR (MDRD) Non-Af 107, BUN/Creatinine Ratio 15.9, Glucose 90, Calcium 8.4 L, Total Bilirubin 0.10 L, AST 11 L, ALT 21, Alkaline Phosphatase 61, Total Protein 6.1 L, Albumin 3.2, Globulin 2.9, Albumin/Globulin Ratio 1.1 D/C Instructions Discharge Diet: No restrictions Meaningful Use Info Meaningful Use Diagnoses (Choose all that apply): None applicable Discharge Plan Admission Admit Date/Time: 08/18/22 21:04 Primary Reason for Your Visit: Alcohol detox Attending Provider: Emily Godfrey Primary Care Provider: Nanci Corral Consulting Providers: Enzo Vargas Instructions Patient Instructions: Addiction: Your Treatment Options Discharge Orders/Prescriptions Prescriptions: Continued albuterol sulfate 90 mcg/actuation HFA aerosol inhaler 1 inh inhalation Q6H PRN (Reason: shortness of breath or wheezing) Qty: 8.5 3RF loratadine [Allergy Relief (loratadine)] 10 mg tablet 10 mg PO DAILY Referrals / Follow Up: Nanci Corral MD [Primary Care Provider] - Within 1 Week Disposition Disposition (needs filled in before D/C Order can be placed): Inpatient Rehab Unit/Facility Charges/Coding Visit Charges Inpatient E&M: 49608 Disch Hosp >30min
--- NOTE | 2022-08-22 12:34 | ADDICTION ---
Patient agreed to residential treatment. She was approved for [facility] in [place]. They will pick her up around 1:30.
== END 2022-08-22 13:18 | disposition other institution (70) | DRG 772 ==
LOC: ED 20:56 → MS3 22:10
PROVIDERS: Admitting Provider Hospitalist; Emergency Provider Emergency Medicine; PCP Internal Medicine; Visit Provider Internal Medicine
DX: F10.239 Alcohol dependence with withdrawal, unspecified (principal); N17.9 Acute kidney failure, unspecified; F15.10 Other stimulant abuse, uncomplicated; E66.01 Morbid (severe) obesity due to excess calories; E87.6 Hypokalemia; F12.10 Cannabis abuse, uncomplicated; F17.210 Nicotine dependence, cigarettes, uncomplicated; Y90.0 Blood alcohol level of less than 20 mg/100 ml; R03.0 Elevated blood-pressure reading, without diagnosis of hypertension; Z68.39 Body mass index [BMI] 39.0-39.9, adult
CPT/HCPCS: 36415; 80048; 80053; 80307; 81001; 82077; 84703; 85025; 87491; 87591; 93005; 94640; 97802; 99285; J7030; J7040; J7120; A4216

== ENCOUNTER 2023-10-14 19:14 | Emergency (ER) | payer MEDICAID, SELFPAY ==
[2023-10-14 19:15] VITALS: BP 132/90; PULSE 111; RESP 16; TEMP 36.6; O2SAT 100; BMI 37.0
--- NOTE | 2023-10-14 19:43 | EDS_ITS ---
HPI HPI - Female History of Present Illness Chief Complaint: PFSH PFSH Medical History Asthma Morbid obesity Obesity (BMI 30-39.9) Seasonal allergies Vaginal discharge Home Medications albuterol sulfate 90 mcg/actuation aerosol inhaler 1 inh inhalation Q6H PRN shortness of breath or wheezing #8.5 grams 02/13/21 [Rx Last Taken 08/11/22] loratadine 10 mg tablet (Allergy Relief (loratadine)) 10 mg PO DAILY Check with primary doctor 08/18/22 [History Last Taken 08/18/22] Allergy/AdvReac Type Severity Reaction Status Date / Time penicillin G Allergy Mild Hives Verified 10/14/23 19:15 venom-honey bee Allergy Swelling Verified 10/14/23 19:15 [bee venom (honey bee)] Family History Grandmother Asthma Arthritis Surgical History History of wisdom tooth extraction Social History Smoking Status: Current some day smoker tobacco type: cigarettes alcohol intake: never substance use type: does not use what type of physical activity do you participate in: walking frequency: 5-6 times per week EXAM Physical Exam Const Vital Signs: 10/14/23 19:15 Temperature 98 F Temperature Source Temporal Pulse Rate 111 H Respiratory Rate 16 Blood Pressure 132/90 H Blood Pressure Mean 104 Pulse Ox 100 MDM MDM MDM Narrative Medical decision making narrative: HISTORY OF PRESENT ILLNESS: 28-year-old female presents with vaginal discharge. States he is approximate 4 weeks . Notes some crampy left lower abdominal pain. No vomiting. She is a . No history of ectopic or miscarriage. Denies any trauma to the abdomen. No vaginal bleeding. She is not concerned with STDs. REVIEW OF SYSTEMS: Pertinent positives: Vaginal discharge, abdominal cramping Pertinent negatives: Syncope, chest pain, shortness of breath, fever, trouble urinating, diarrhea PHYSICAL EXAM: Nursing triage notes reviewed, Vital signs reviewed Constitutional: please see mdm HENT: MMM Eyes: Pupils equal round and reactive to light, Extraocular muscles intact Neck: No stridor, no JVD, full neck ROM Lungs: Clear to auscultation, No wheezing or rales. No increased work of breathing, no conversational dyspnea, no accessory muscle use, no nasal flaring. No respiratory distress noted Heart: Regular rate and rhythm, No murmurs, No rubs and No gallops, 2+ distal pulses (radial, femoral, posterior tibial) in all extremities Abdomen: Soft, there is no tenderness, rigidity, rebound or guarding, no obvious peritoneal signs, no palpable pulsatile abdominal masses, no auscultated abdominal bruit : No CVAT, deferred by patient Extremities: No edema Neuro: No focal neurological deficits, cranial nerves II through XII intact, 5/5 strength in all extremities. Intact sensation to light touch in all extremities, 2+ reflexes bilateral patella tendons. Normal gait. No ataxia. Skin: No rash or lesions noted MEDICAL DECISION MAKING: Chief Complaint: Vaginal discharge External records reviewed: Admitted for alcohol dependence. In August 2022 Factors affecting care: Plan substance abuse Social determinants of health: History of prior substance abuse History obtained from others: none Consults: none MDM Narrative: Patient was initially hemodynamically stable, afebrile, nontoxic-appearing. Exam with a benign appearing abdominal exam. Offered pelvic exam and STD testing however this was deferred by the patient. I considered the following differential diagnosis: Early , ectopic (, miscarriage ALL IMAGES (IF OBTAINED) HAVE BEEN PERSONALLY REVIEWED AND INTERPRETED BY MYSELF. Quantitative hCG 91 Urinalysis shows no evidence of urinary inflammation suggestive of UTI O+, no vaginal bleeding, no acute for RhoGAM Pelvic ultrasound shows no obvious intrauterine likely too early to assess viability of given low hCG and the patient reported being only 4 weeks . The patient and/or family, caregivers express understanding. The patient and/or family, caregivers agrees with the plan. Shared decision making: I will have a discussion with the patient and or visitors regarding risk/benefits of further testing or admission. They will be made aware of of the risk/benefits inherent in this decision they will be given the opportunity to voice understanding. Total critical care time today provided was at least 0 [] minutes. This excludes separately billable procedures. Critical care time (if documented) is secondary to the patient having high probability of clinically significant/life threatening deterioration in the patient's condition which required my urgent intervention. Impression: 1. First trimester 2. Vaginal discharge Dispo: Discharge home This note was generated with [employer] dictation software. It may contain incorrect words, spelling, and punctuation that were not noted in review of the chart prior to signing. Lab Data Labs: Laboratory Results - last 24 hr 10/14/23 10/14/23 10/14/23 20:22 20:35 21:48 HCG, Quant 91 H Urine Color Yellow Urine Clarity Sl. Cloudy Urine pH 6.5 Ur Specific [place] 1.020 Urine Protein Negative Urine Glucose (UA) Normal Urine Ketones Negative Urine Occult Blood 10 H Urine Nitrite Negative Urine Bilirubin Negative Urine Urobilinogen Normal Ur Leukocyte Esterase Negative Urine RBC 0-5 SEEN Urine WBC 0 SEEN Ur Squamous Epith Cells 0-5 SEEN Amorphous Sediment 1+ URATE Urine Bacteria 0 SEEN Urine Mucus 0 SEEN Blood Type Cancelled O POSITIVE Radiography Diagnostic Testing: Clinical Impression(s) from Imaging Studies Obstetrics Ultrasound 10/14/23 19:59 IMPRESSION: No intrauterine gestation seen. No free fluid. Electronically Signed: Yehuda Tijerina MD at 22:49 EDT , Discharge Plan Triage Chief Complaint: ED Provider: Vipul Gagnon Dx/Rx/DC Orders Clinical Impression: Vaginal discharge Instructions: 1st Trimester Prescriptions: No Action albuterol sulfate 90 mcg/actuation HFA aerosol inhaler 1 inh inhalation Q6H PRN (Reason: shortness of breath or wheezing) Qty: 8.5 3RF loratadine [Allergy Relief (loratadine)] 10 mg tablet 10 mg PO DAILY Primary Care Provider: Nanci Corral Referrals: Mariann Cardoza MD [Med Staff - Active Staff] - Activity Restrictions/Additional Instructions: Thank you for trusting us with your care today! Please take Tylenol (2 pills, 650 mg) every 6 hours as needed for pain and fever control. Please return to the emergency department if your symptoms change or worsen. Please follow with your OBGYN for further outpatient evaluation and management. Disposition Disposition: Home, Self Care
--- NOTE | 2023-10-14 19:59 | US_ITS ---
STUDY: FIRST TRIMESTER OBSTETRICAL ULTRASOUND REASON FOR EXAM: Female, 28 years old Crampy abdominal pain LMP: September 17, 2023 TECHNIQUE: Transvaginal TECHNICAL QUALITY: Adequate. PRIOR ULTRASOUND: None. FINDINGS: There is no demonstrated intrauterine gestational sac. There is no demonstrated yolk sac. The placenta is non-visualized. There is no demonstrated embryo ( pole). The estimated gestation age (EGA) by LMP is 3 weeks, 6 days. The estimated date of delivery (ISABEL) by LMP is June 27, 2024. The uterus measures 9.2 x 5.0 x 4.3 cm. There is no demonstrated uterine fibroid. The cervix is closed. The right ovary measures 3.5 x 2.2 x 2.2 cm. There is 1.5 cm hypoechoic cyst. The left ovary measures 2.9 x 2.2 x 1.8 cm. There is no left ovarian cyst. There is no visualized left adnexal mass or complex lesion. There is no fluid in the cul de sac. US/Transvaginal w/Preg US IMPRESSION: No intrauterine gestation seen. No free fluid. Electronically Signed: Yehuda Tijerina MD at 22:49 EDT ,
[2023-10-14 21:09] LABS: hCG Titer Quant., Serum 91 mIU/mL (1-3)
[2023-10-14 21:54] LABS: Bacteria 0 SEEN /hpf (None Seen); Mucous, Urine 0 SEEN /hpf (<or=2+); White Blood Cells 0 SEEN /hpf (0-5)
[2023-10-14 21:56] LABS: Color, Urine Yellow (Yellow); Glucose, Dipstick Normal (Normal); Ketone-Dipstick Negative (Negative); Leukocyte Esterase-Dipstick Negative /ul (Negative); Nitrite-Dipstick Negative (Negative); Occult Blood-Urine 10 /ul (Negative); Protein-Dipstick Negative (Negative); Urine Bilirubin Dipstick Negative (Negative); Urine Clarity Sl. Cloudy (Clear); Urine Urobilinogen Normal (Normal); Urine pH 6.5 (5.0 - 8.0)
[2023-10-14 22:06] LABS: Red Blood Cells-Urine 0-5 SEEN /hpf (0-5)
[2023-10-14 22:07] LABS: Amorphous Sediment 1+ URATE; Squamous Epithelial Cells - UA 0-5 SEEN /hpf (5-10)
[2023-10-14 23:00] VITALS: RESP 16
== END 2023-10-14 23:01 | disposition home or self-care (01) ==
PROVIDERS: Emergency Provider Emergency Medicine; PCP Internal Medicine; Visit Provider Emergency Medicine
DX: O99.891 Other specified diseases and conditions complicating pregnancy (principal); N89.8 Other specified noninflammatory disorders of vagina; O99.511 Diseases of the respiratory system complicating pregnancy, first trimester; J45.909 Unspecified asthma, uncomplicated; O99.331 Smoking (tobacco) complicating pregnancy, first trimester; Z3A.01 Less than 8 weeks gestation of pregnancy
CPT/HCPCS: 76817; 81001; 84702; 86900; 86901; 99283

== ENCOUNTER 2024-02-29 15:24 | Emergency (ER) | payer MEDICAID, SELFPAY ==
[2024-02-29 15:24] VITALS: BP 122/78; PULSE 106; RESP 16; TEMP 36.2; O2SAT 97; BMI 39.4
[2024-02-29 19:24] VITALS: BP 116/80; PULSE 90; RESP 18
[2024-02-29 19:26] LABS: Bacteria 0 SEEN /hpf (None Seen); Mucous, Urine 0 SEEN /hpf (<or=2+)
[2024-02-29 19:41] LABS: Color, Urine Yellow (Yellow); Glucose, Dipstick Normal (Normal); Ketone-Dipstick Negative (Negative); Leukocyte Esterase-Dipstick 500 /ul (Negative); Nitrite-Dipstick Negative (Negative); Occult Blood-Urine 250 /ul (Negative); Protein-Dipstick 30 mg/dl (Negative); Specific Gravity, Urine 1.015 (1.002-1.030); Urine Bilirubin Dipstick Negative (Negative); Urine Clarity Sl. Cloudy (Clear); Urine Urobilinogen Normal (Normal)
[2024-02-29 19:50] LABS: Internal QC Validated? YES +Cl - CLEAR BKGD
[2024-02-29 19:51] LABS: Pregnancy, Urine Positive Negative
[2024-02-29 19:53] LABS: Red Blood Cells-Urine 0-5 SEEN /hpf (0-5); Squamous Epithelial Cells - UA 0-5 SEEN /hpf (5-10); White Blood Cells 10-25 SEEN /hpf (0-5)
[2024-02-29 19:54] LABS: Amorphous Sediment 1+ URATE
--- NOTE | 2024-02-29 20:33 | EX.ED.DYSGE1 ---
HPI History of Present Illness Chief Complaint: Complaint Informant: patient Narrative Narrative: 1 week history dysuria along with vaginal discharge. No fevers or back pain. She had partner reported her positive for gonorrhea. She has had STDs in the past. She cannot recall her last menstrual period. She states she had a miscarriage 2 weeks ago with bleeding that subsided. She states she was 5 to 6 weeks . She moved here from the [facility]. Allergies penicillin causing hives. Denies abdominal or pelvic pain. In addition, states she needs her refill of her inhaler and Claritin for seasonal allergies. Prior similar symptoms: Yes [facility] Medical History Alcohol withdrawal Obesity (BMI 30-39.9) Vaginal discharge Seasonal allergies Asthma Home Medications ?Medication ?Instructions ?Recorded ?Last Taken ?Type albuterol sulfate 90 mcg/actuation 1 inh inhalation Q6H PRN shortness 02/13/21 08/11/22 Rx aerosol inhaler of breath or wheezing #8.5 grams loratadine 10 mg tablet (Allergy 10 mg PO DAILY Check with primary 08/18/22 08/18/22 History Relief (loratadine)) doctor albuterol sulfate 90 mcg/actuation 1 - 2 puff inhalation Q4H PRN PRN 02/29/24 Unknown Rx aerosol inhaler (Ventolin HFA) Wheezing ##1 cephalexin 500 mg capsule 500 mg PO Q12 #14 CAPSULES 02/29/24 Unknown Rx fluconazole 150 mg tablet 150 mg PO X1 PRN yeast 1 dose #2 02/29/24 Unknown Rx tabs loratadine 10 mg tablet (Claritin) 10 mg PO DAILY #30 tabs 02/29/24 Unknown Rx Allergy/AdvReac Type Severity Reaction Status Date / Time penicillin G Allergy Mild Hives Verified 02/29/24 15:26 venom-honey bee (bee venom Allergy Swelling Verified 02/29/24 15:26 (honey bee)) Family History Grandmother Asthma Arthritis Surgical History History of wisdom tooth extraction Social History Smoking Status: Current some day smoker tobacco type: cigarettes alcohol intake: never substance use type: does not use what type of physical activity do you participate in: walking frequency: 5-6 times per week ROS ROS ED Constitutional Constitutional ED: Denies chills, fever(s) or sweats Eyes Eyes: Denies change in vision ENT ENT ED: Denies dysphagia or sore throat Cardiovascular Cardiovascular: Denies chest pain, leg edema, palpitations or racing heartbeat Respiratory/Chest Respiratory/Chest: Denies cough, dyspnea or dyspnea on exertion Gastrointestinal Gastrointestinal: Denies abdominal pain, diarrhea, nausea or vomiting Genitourinary Genitourinary ED: Reports dysuria and other Details: Vaginal discharge ; Denies hematuria or urinary frequency Musculoskeletal Musculoskeletal: Denies back pain, extremity pain or neck pain Integumentary Denies rash or wounds Neurologic Neurologic: Denies headache(s), paresthesias or weakness EXAM Physical Exam Const Vital Signs: 02/29/24 15:24 02/29/24 19:24 Temperature 97.1 F L Temperature Source Temporal Pulse Rate 106 H 90 Respiratory Rate 16 18 Blood Pressure 122/78 H 116/80 Blood Pressure Mean 92 92 Pulse Ox 97 Oxygen Delivery Method Room Air Positive well nourished and well developed General Appearance ED: well developed and NAD HEENT Reports moist mucous membranes normocephalic and atraumatic Eyes EOMs intact bilaterally and conjunctivae normal General Eye ED: Yes normal appearance of both eyes Neck no lymphadenopathy and supple General: Negative for tenderness Chest Wall Chest: Negative for tenderness Resp normal respiratory effort and normal air movement Effort and Inspection: symmetric chest movement; Negative for respiratory distress Cardio regular rate, regular rhythm and no murmurs Peripheral Pulses: pulses 2+ throughout GI normal to inspection, nondistended, normoactive bowel sounds and non-tender Palpation: Negative for guarding or rebound tenderness present Narrative: Declines pelvic exam. Back/Spine no CVA tenderness and no thoracic nor lumbar tenderness Extremity normal to inspection General Extremety ED: Negative for edema or tenderness General Extremity: Negative for edema Neuro oriented x3 and no sensory deficits noted Sensorium / Orientation: awake and alert Skin no rashes or lesions noted and no wounds MDM MDM MDM Narrative Medical decision making narrative: Interventions / MDM: Differential diagnosis: UTI, vaginitis, history of asthma, miscarriage Diagnosis considered but do not suspect: No clinical ectopic My EKG interpretation: N/A Imaging independently reviewed and interpreted by myself: N/A External documents reviewed: N/A Test considered but not ordered:N/A ED course: Patient nontoxic. Discussed with her vaginal symptoms for pelvic exam however she declines. Urine was sent for evaluation including GC chlamydia and hCG. Urine with signs of infection she is symptomatic. GC chlamydia pending. urine was positive, I sent for serum hCG levels. She reported positive recently with miscarriage 2 weeks ago. Secondary to positive test however I will avoid toxicity medications. She wanted treatment for STDs and for Rocephin IM 500 mg ordered along with 1 g of Zithromax. She was given prescription of Keflex for UTI. Fluconazole for treatment of yeast develops as she has had this before. Refill of her Claritin and inhaler also sent to her pharmacy. Of note did not want to wait for hCG levels. She is given follow-up with gynecology as an outpatient for further testing if needed. No pelvic pain for concerns of ectopic . PCP also given for follow-up. Re-evaluation: stable Disposition discussed with patient/family/significant other: Patient Case discussed with consulting clinician: N/A This note was generated with [employer] dictation software. It may contain incorrect words, spelling, and punctuation that were not noted in checking the note before signing. Lab Data Attestation: I reviewed the patient's lab results. Labs: Laboratory Results - last 24 hr 02/29/24 19:15 Urine Color Yellow Urine Clarity Sl. Cloudy Urine pH 6.0 Ur Specific [place] 1.015 Urine Protein 30 H Urine Glucose (UA) Normal Urine Ketones Negative Urine Occult Blood 250 H Urine Nitrite Negative Urine Bilirubin Negative Urine Urobilinogen Normal Ur Leukocyte Esterase 500 H Urine RBC 0-5 SEEN Urine WBC 10-25 SEEN Ur Squamous Epith Cells 0-5 SEEN Amorphous Sediment 1+ URATE Urine Bacteria 0 SEEN Urine Mucus 0 SEEN Urine Test Positive H Discharge Plan Triage Chief Complaint: Complaint ED Provider: Tavo Urrutia Dx/Rx/DC Orders Clinical Impression: UTI (urinary tract infection), Vaginitis, Miscarried within last 12 months, Asthma, Medication refill Instructions: Urinary Tract Infections in Women, Understanding STIs Prescriptions: New cephalexin 500 mg capsule 500 mg PO Q12 Qty: 14 0RF albuterol sulfate [Ventolin HFA] 90 mcg/actuation HFA aerosol inhaler 1 - 2 puff inhalation Q4H PRN PRN (Reason: Wheezing) Qty: 1 0RF loratadine [Claritin] 10 mg tablet 10 mg PO DAILY Qty: 30 0RF fluconazole 150 mg tablet 150 mg PO X1 PRN (Reason: yeast) Qty: 2 0RF Rx Instructions: administer on day 1 of therapy. repeat in 1 week if needed. No Action albuterol sulfate 90 mcg/actuation HFA aerosol inhaler 1 inh inhalation Q6H PRN (Reason: shortness of breath or wheezing) Qty: 8.5 3RF loratadine [Allergy Relief (loratadine)] 10 mg tablet 10 mg PO DAILY Primary Care Provider: Nanci Corral Referrals: Nanci Corral MD [Primary Care Provider] - Mariann Cardoza MD [Med Staff - Active Staff] - 1 Week To Weber MD [Med Staff - Education Nurse] - 1-2 Weeks Activity Restrictions/Additional Instructions: Urine with infection. You are covered with your STD concerns with Rocephin 500 mg IM and 1 g of Zithromax. Your test urine was positive your quant levels were sent and pending. You report you had a miscarriage 2 weeks ago. You need to follow-up with gynecology to recheck your blood work to make sure it goes to undetectable or further testing if it goes up. Print Language: Lao Disposition Disposition: Home, Self Care Discharge Date/Time: 02/29/24 21:09
[2024-02-29] MEDS: Azithromycin 250 MG Tablet 1000 MG PO (20:41)
[2024-02-29] MEDS: Ceftriaxone 500 MG Vial IM (20:45)
--- NOTE | 2024-02-29 21:07 | ED.RN ---
found pt going through the drawers,pt adviced to stay out of the drawers. asked pt what she needed as she was putting on hospital slippers. pt denied needing anything.
== END 2024-02-29 21:09 | disposition home or self-care (01) ==
PROVIDERS: Emergency Provider Emergency Medicine; PCP Internal Medicine; Visit Provider Emergency Medicine
DX: N39.0 Urinary tract infection, site not specified (principal); N76.0 Acute vaginitis; Z76.0 Encounter for issue of repeat prescription; J45.909 Unspecified asthma, uncomplicated; F17.210 Nicotine dependence, cigarettes, uncomplicated
CPT/HCPCS: 84702; 81001; 81025; 87491; 87591; 96372; 99282

== ENCOUNTER 2024-03-24 07:46 | Emergency (ER) | payer MEDICAID, SELFPAY ==
[2024-03-24 07:47] VITALS: BP 123/82; PULSE 109; RESP 16; TEMP 36.8; O2SAT 98; BMI 40.5
--- NOTE | 2024-03-24 07:56 | EDS_ITS ---
HPI History of Present Illness Chief Complaint: General Illness Informant: patient Onset/Context/Timing Onset: Today Context: Gradual Onset Timing: Continuous Quality: Wheezing Location: Chest Worsened by: Smoking Relieved by: Nothing Narrative Narrative: Patient presents with shortness of breath and wheezing. Patient states she also feels like she may have a urinary tract infection or bacterial vaginosis. Patient states her breathing became worse today. Patient states it is gradually gotten worse. Patient states she can feel herself wheezing. Patient states that it is worse when she smokes. Patient denies any fevers or chills. Patient denies any cough. Patient admits to some nausea but denies any vomiting. Patient denies any back pain. [facility] Medical History Alcohol withdrawal Obesity (BMI 30-39.9) Vaginal discharge Seasonal allergies Asthma Home Medications ?Medication ?Instructions ?Recorded ?Last Taken ?Type albuterol sulfate 90 mcg/actuation 1 inh inhalation Q6H PRN shortness 02/13/21 08/11/22 Rx aerosol inhaler of breath or wheezing #8.5 grams loratadine 10 mg tablet (Allergy 10 mg PO DAILY Check with primary 08/18/22 08/18/22 History Relief (loratadine)) doctor albuterol sulfate 90 mcg/actuation 1 - 2 puff inhalation Q4H PRN PRN 02/29/24 Unknown Rx aerosol inhaler (Ventolin HFA) Wheezing ##1 cephalexin 500 mg capsule 500 mg PO Q12 #14 CAPSULES 02/29/24 Unknown Rx fluconazole 150 mg tablet 150 mg PO X1 PRN yeast 1 dose #2 02/29/24 Unknown Rx tabs loratadine 10 mg tablet (Claritin) 10 mg PO DAILY #30 tabs 02/29/24 Unknown Rx albuterol sulfate 90 mcg/actuation 1 - 2 puff inhalation Q4H PRN PRN 03/24/24 Unknown Rx aerosol inhaler (Ventolin HFA) Wheezing ##1 fluconazole 150 mg tablet 150 mg PO Q3D 2 doses #2 tabs 03/24/24 Unknown Rx metronidazole 500 mg tablet 500 mg PO BID 7 days #14 tabs 03/24/24 Unknown Rx Allergy/AdvReac Type Severity Reaction Status Date / Time penicillin G Allergy Mild Hives Verified 03/24/24 07:46 venom-honey bee (bee venom Allergy Swelling Verified 03/24/24 07:46 (honey bee)) Family History Grandmother Asthma Arthritis Surgical History History of wisdom tooth extraction Social History Smoking Status: Current some day smoker tobacco type: cigarettes alcohol intake: never substance use type: does not use what type of physical activity do you participate in: walking frequency: 5-6 times per week ROS ROS ED Constitutional Constitutional ED: Denies chills or fever(s) Eyes Eyes: Denies blurry vision or change in vision ENT ENT ED: Denies rhinorrhea or sore throat Cardiovascular Cardiovascular: Denies chest pain or palpitations Respiratory/Chest Respiratory/Chest: Reports dyspnea; Denies cough Gastrointestinal Gastrointestinal: Reports nausea; Denies vomiting Genitourinary Genitourinary ED: Reports dysuria; Denies hematuria Musculoskeletal Musculoskeletal: Denies back pain or neck pain Integumentary Denies abscess or rash Neurologic Neurologic: Denies headache(s) or weakness Allergic/Immunologic Allergic/Immunologic ED: Denies mouth swelling or urticaria EXAM Physical Exam Const Vital Signs: 03/24/24 07:47 03/24/24 08:49 Temperature 98.2 F Temperature Source Oral Pulse Rate 109 H 98 Respiratory Rate 16 16 Respiratory Pattern Normal Blood Pressure 123/82 H Blood Pressure Mean 95 Pulse Ox 98 Oxygen Delivery Method Room Air Positive well nourished and well developed General Appearance ED: well developed and NAD HEENT Reports moist mucous membranes Neck supple and no JVD Resp normal respiratory effort Auscultation: wheezes scattered wheezes Cardio regular rate and regular rhythm GI non-tender and non-distended Palpation: soft Neuro oriented x3, CN's II-XII intact bilaterally and no sensory deficits noted Sensorium / Orientation: alert Motor Exam: strength 5/5 throughout Psych mental status grossly normal MDM MDM MDM Narrative Medical decision making narrative: Differential diagnosis includes pneumonia, reactive airway disease, urinary tract infection, sexually transmitted infection, and viral infection. Chest x- ray will be obtained to assess for pneumonia and pneumothorax. Urinalysis will be obtained to assess for urinary tract infection and hematuria. Urine GC and Chlamydia cultures will be obtained to assess for sexually transmitted infection. COVID-19, influenza, and RSV PCR will be obtained to assess for viral illness. Lab Data Attestation: I reviewed the patient's lab results. Lab results narrative: Urinalysis was reviewed. There is no evidence of urinary tract infection or hematuria. COVID-19 PCR was reviewed and was negative. Influenza PCR was reviewed and was negative for influenza A and influenza B. RSV PCR was reviewed and was negative. GC and Chlamydia PCR was reviewed and was negative. Labs: Laboratory Results - last 24 hr 03/24/24 08:45 Urine Color Yellow Urine Clarity Sl. Cloudy Urine pH 6.0 Ur Specific [place] 1.025 Urine Protein 30 H Urine Glucose (UA) Normal Urine Ketones Negative Urine Occult Blood 10 H Urine Nitrite Negative Urine Bilirubin Negative Urine Urobilinogen 1 H Ur Leukocyte Esterase Negative Urine RBC 0 SEEN Urine WBC 0 SEEN Ur Squamous Epith Cells 0-5 SEEN Urine Bacteria 1+ Urine Mucus 0 SEEN Radiography Chest X-Ray - ED: 2 View, Read by ED Physician, Read by Radiologist and No Acute Disease Diagnostic Testing: Clinical Impression(s) from Imaging Studies Chest X-Ray 03/24/24 09:05 IMPRESSION: Normal x-ray examination of the chest. Electronically Signed: Jose Miguel Willis MD at 9:21 EDT , PA and lateral chest x-ray was obtained. There are 2 views. On my independent interpretation, lung meadows are clear. There is normal cardiac silhouette. Bony thorax is normal. There is no acute process noted. Radiologist also interpreted the x-ray and agrees. Treatment and Re-Evaluation :: Patient was given an albuterol aerosol here. Patient is feeling better on reevaluation. Patient was advised of her findings. Patient will be treated with Flagyl to cover for possible bacterial vaginosis. Patient states she usually gets a yeast infection after taking antibiotics. Patient was given a prescription for Diflucan. Patient was also given a prescription for an albuterol inhaler. Patient was instructed to follow-up with her primary care physician in 5 to 7 days for further evaluation. Patient understood and was agreeable with the plan. All questions were answered. Discharge Plan Triage Chief Complaint: General Illness ED Provider: Joe Hartmann Dx/Rx/DC Orders Clinical Impression: Dysuria, Asthma Instructions: ED Dysuria, Uncertain Cause (Adult) Prescriptions: New metronidazole 500 mg tablet 500 mg PO BID 7 Days Qty: 14 0RF fluconazole 150 mg tablet 150 mg PO Q3D Qty: 2 0RF Rx Instructions: may repeat second dose 72 hrs after first dose if symptoms persist albuterol sulfate [Ventolin HFA] 90 mcg/actuation HFA aerosol inhaler 1 - 2 puff inhalation Q4H PRN PRN (Reason: Wheezing) Qty: 1 0RF No Action albuterol sulfate 90 mcg/actuation HFA aerosol inhaler 1 inh inhalation Q6H PRN (Reason: shortness of breath or wheezing) Qty: 8.5 3RF loratadine [Allergy Relief (loratadine)] 10 mg tablet 10 mg PO DAILY cephalexin 500 mg capsule 500 mg PO Q12 Qty: 14 0RF albuterol sulfate [Ventolin HFA] 90 mcg/actuation HFA aerosol inhaler 1 - 2 puff inhalation Q4H PRN PRN (Reason: Wheezing) Qty: 1 0RF loratadine [Claritin] 10 mg tablet 10 mg PO DAILY Qty: 30 0RF fluconazole 150 mg tablet 150 mg PO X1 PRN (Reason: yeast) Qty: 2 0RF Rx Instructions: administer on day 1 of therapy. repeat in 1 week if needed. Primary Care Provider: Nanci Corral Referrals: Nanci Corral MD [Primary Care Provider] - 5-7 Days Activity Restrictions/Additional Instructions: Do not drink any alcohol while taking the antibiotic. It will cause severe nausea and vomiting. Follow-up with your primary care physician in 5 to 7 days for further evaluation and treatment. Print Language: Turkish Disposition Disposition: Home, Self Care
[2024-03-24] MEDS: Albuterol 2.5 MG/3 ML VIAL.NEB. INHALATION (08:46)
[2024-03-24 08:49] VITALS: PULSE 98; RESP 16
[2024-03-24 08:55] LABS: Mucous, Urine 0 SEEN /hpf (<or=2+); Red Blood Cells-Urine 0 SEEN /hpf (0-5); White Blood Cells 0 SEEN /hpf (0-5)
[2024-03-24 08:57] LABS: Color, Urine Yellow (Yellow); Glucose, Dipstick Normal (Normal); Ketone-Dipstick Negative (Negative); Leukocyte Esterase-Dipstick Negative /ul (Negative); Nitrite-Dipstick Negative (Negative); Occult Blood-Urine 10 /ul (Negative); Protein-Dipstick 30 mg/dl (Negative); Specific Gravity, Urine 1.025 (1.002-1.030); Urine Bilirubin Dipstick Negative (Negative); Urine Clarity Sl. Cloudy (Clear); Urine Urobilinogen 1 mg/dl (Normal)
[2024-03-24 09:03] LABS: Bacteria 1+ /hpf (None Seen); Squamous Epithelial Cells - UA 0-5 SEEN /hpf (5-10)
--- NOTE | 2024-03-24 09:05 | RAD_ITS ---
STUDY: X-RAY CHEST REASON FOR EXAM: Female, 29 years old. Dyspnea TECHNIQUE: PA and lateral views of the chest. COMPARISON: 12/14/2018 FINDINGS: The lungs are clear and expanded. There is no demonstrated pleural abnormality. Normal size heart. Normal mediastinum and michelle. Normal visualized pulmonary arteries. Normal visualized aortic arch and descending thoracic aorta. Normal visualized thoracic spine. Normal visualized ribs, clavicles, and shoulders. There is no demonstrated abnormality of the visualized soft tissue structures of the upper abdomen. RAD/Chest PA and Lateral IMPRESSION: Normal x-ray examination of the chest. Electronically Signed: Jose Miguel Willis MD at 9:21 EDT ,
== END 2024-03-24 11:21 | disposition home or self-care (01) ==
PROVIDERS: Emergency Provider Emergency Medicine; PCP Internal Medicine; Visit Provider Emergency Medicine
DX: R30.0 Dysuria (principal); J45.909 Unspecified asthma, uncomplicated; R11.0 Nausea; R06.02 Shortness of breath; F17.210 Nicotine dependence, cigarettes, uncomplicated
CPT/HCPCS: 71046; 81001; 87491; 87591; 87631; 94640; 99282

== ENCOUNTER → 2024-04-06 | Outpatient (CLI) | payer MEDICAID, SELFPAY ==
[2024-04-06 12:38] LABS: Absolute Lymphocyte Count 2.43 X10^3/uL (0.83-4.51); Absolute Neutrophil Count 4.1 X10^3/uL (2.0-7.7); Basophil# 0.07 X10^3/uL; Basophil% 0.9 % (0-1); Eosinophil# 0.33 X10^3/uL; Eosinophils% 4.3 % (0-5); Hematocrit 41.5 % (37-47); Hemoglobin 13.6 g/dL (12.0-15.0); Lymphocyte # 2.43 X10^3/ul (0.83-4.51); Mean Corp Hgb Conc 32.8 g/dL (32-36); Mean Corpuscular Hgb 29.4 pg (27.0-32.0); Mean Corpuscular Volume 89.8 fL (81-99); Mean Platelet Vol. 10.6 fl (6.2-12.0); Monocyte# 0.66 X10^3/uL; Monocyte% 8.7 % (0-10); NRBC Flagged by Analyzer 0 % (0-5); Neutrophil # 4.08 X10^3/uL (2.7-7.7); Neutrophil % 53.8 % (47-70); Platelet Count 412 K/mm3 (150-450); RBC Distribution Width CV 12.4 % (11.6-14.6); RBC Distribution Width SD 40.8 fl (35.1-43.9); Red Blood Count 4.62 M/mm3 (4.2-5.4); White Blood Count 7.6 K/mm3 (4.4-11.0)
[2024-04-06 12:59] LABS: Hemoglobin A1c 5.2 % (3.8-5.6)
[2024-04-06 13:33] LABS: ALB/GLOB Ratio 1.1 RATIO (0.9-2.4); AST(SGOT) 21 U/L (15-37); Alanine Aminotransfer ALT/SGPT 33 U/L (13-56); Albumin, Serum 4.1 g/dL (3.2-5.0); Alkaline Phosphatase 75 U/L (45-117); Anion Gap 7 (5-15); BUN 14 mg/dL (7-18); BUN/Creat Ratio 19.1 RATIO (10-20); Calcium,Total 9.4 mg/dL (8.5-10.1); Chloride 105 mmol/L (98-107); Cholesterol 148 mg/dL (200); Creatinine, Serum 0.73 mg/dL (0.55-1.02); EST Glomerular Filtration Rate 99 mL/min (>60); Est Glom Filt Rate - Afr Amer 119 mL/min (>60); Ferritin 5 ng/mL (8-252); Globulin 3.8 g/dL (2.2-4.2); Glucose 87 mg/dL (74-106); High Density Lipoprotein 53 mg/dL; Magnesium 2.2 mg/dL (1.6-2.6); Protein, Total 7.9 g/dL (6.4-8.2); Sodium Level 135 mmol/L (136-145); Triglycerides 147 mg/dL; Very Low Density Lipoprotein 29 mg/dL (5-40)
[2024-04-13 15:08] LABS: Syphilis Antibodies Non Reactive (Non Reactive)
[2024-04-13 15:09] LABS: Vitamin B12 583 pg/mL (232-1245)
== END | disposition home or self-care (01) ==
LOC: VSLAB 09:11
PROVIDERS: PCP Family Medicine; Visit Provider Family Medicine
DX: N89.9 Noninflammatory disorder of vagina, unspecified (principal); F39 Unspecified mood [affective] disorder; Z13.6 Encounter for screening for cardiovascular disorders
CPT/HCPCS: 80074; 86703; 36415; 80053; 80061; 82306; 82607; 82728; 83036; 83735; 84443; 85025; 86780

== ENCOUNTER 2024-05-18 16:15 | Emergency (ER) | payer MEDICAID, SELFPAY ==
[2024-05-18 16:16] VITALS: BP 129/92; PULSE 100; RESP 16; TEMP 37; O2SAT 99
[2024-05-18 17:37] LABS: Color, Urine Yellow (Yellow); Glucose, Dipstick Normal (Normal); Ketone-Dipstick 15 mg/dl (Negative); Leukocyte Esterase-Dipstick 25 /ul (Negative); Nitrite-Dipstick Negative (Negative); Occult Blood-Urine 10 /ul (Negative); Protein-Dipstick 15 mg/dl (Negative); Specific Gravity, Urine 1.025 (1.002-1.030); Urine Bilirubin Dipstick Negative (Negative); Urine Clarity Sl. Cloudy (Clear); Urine Urobilinogen Normal (Normal)
--- NOTE | 2024-05-18 18:05 | EDS_ITS ---
HPI HPI - Female History of Present Illness Chief Complaint: Complaint Informant: patient Narrative Narrative: Patient is a 29-year-old female presenting with abnormal vaginal discharge. She states for the past few weeks she has had copious watery vaginal discharge. She denies associated odor. She states she just had a generalized vaginal discomfort and irritation. Denies any dysuria or hematuria. Notes that she did recently have a miscarriage at approximately 7 weeks about a month ago. She is not sure if the miscarriage caused BV. She denies any vaginal bleeding. She denies any recent sexual activity but states he would like to be checked for it all. She does follow with OB at [facility]. She denies any associated fever. She has noted that her urine has had some sediment in it. She has some mild suprapubic abdominal discomfort. Last menstrual period was 2 weeks ago. No other complaints or concerns reported at this time. [facility] Medical History Alcohol withdrawal Obesity (BMI 30-39.9) Vaginal discharge Seasonal allergies Asthma Home Medications ?Medication ?Instructions ?Recorded ?Last Taken ?Type albuterol sulfate 90 mcg/actuation 1 inh inhalation Q6H PRN shortness 02/13/21 08/11/22 Rx aerosol inhaler of breath or wheezing #8.5 grams loratadine 10 mg tablet (Allergy 10 mg PO DAILY Check with primary 08/18/22 08/18/22 History Relief (loratadine)) doctor albuterol sulfate 90 mcg/actuation 1 - 2 puff inhalation Q4H PRN PRN 02/29/24 Unknown Rx aerosol inhaler (Ventolin HFA) Wheezing ##1 cephalexin 500 mg capsule 500 mg PO Q12 #14 CAPSULES 02/29/24 Unknown Rx fluconazole 150 mg tablet 150 mg PO X1 PRN yeast 1 dose #2 02/29/24 Unknown Rx tabs loratadine 10 mg tablet (Claritin) 10 mg PO DAILY #30 tabs 02/29/24 Unknown Rx albuterol sulfate 90 mcg/actuation 1 - 2 puff inhalation Q4H PRN PRN 03/24/24 Unknown Rx aerosol inhaler (Ventolin HFA) Wheezing ##1 fluconazole 150 mg tablet 150 mg PO Q3D 2 doses #2 tabs 03/24/24 Unknown Rx metronidazole 500 mg tablet 500 mg PO BID 7 days #14 tabs 03/24/24 Unknown Rx fluconazole 150 mg tablet 150 mg PO Q3D 2 doses #2 tabs 05/18/24 Unknown Rx metronidazole 500 mg tablet 500 mg PO BID 7 days #14 tabs 05/18/24 Unknown Rx Allergy/AdvReac Type Severity Reaction Status Date / Time penicillin G Allergy Mild Hives Verified 05/18/24 16:16 venom-honey bee (bee venom Allergy Swelling Verified 05/18/24 16:16 (honey bee)) Family History Grandmother Asthma Arthritis Surgical History History of wisdom tooth extraction Social History Smoking Status: Current some day smoker tobacco type: cigarettes alcohol intake: never substance use type: does not use what type of physical activity do you participate in: walking frequency: 5-6 times per week ROS ROS ED Constitutional Constitutional ED: Denies chills or fever(s) Respiratory/Chest Respiratory/Chest: Denies cough Gastrointestinal Gastrointestinal: Reports abdominal pain; Denies constipation, diarrhea, nausea or vomiting Genitourinary Genitourinary ED: Reports other Details: Denies vaginal bleeding. Abnormal vaginal discharge reported. ; Denies dysuria or hematuria Musculoskeletal Musculoskeletal: Denies myalgias Integumentary Denies rash EXAM Physical Exam Const Vital Signs: 05/18/24 16:16 Temperature 98.6 F Temperature Source Temporal Pulse Rate 100 Respiratory Rate 16 Blood Pressure 129/92 H Blood Pressure Mean 104 Pulse Ox 99 Oxygen Delivery Method Room Air Positive well nourished and well developed General Appearance ED: well developed and NAD HEENT Reports moist mucous membranes Chest Wall inspection of chest normal Resp normal respiratory effort and clear to auscultation bilaterally Cardio regular rate and regular rhythm GI normal to inspection, nondistended, normoactive bowel sounds, soft to palpation and non-tender Narrative: Normal external genitalia. No sores appreciated. On speculum exam patient has a mildly irritated appearing cervix. There is clear thin discharge present. No cervical motion tenderness on bimanual exam. No adnexal tenderness appreciated. Back/Spine no CVA tenderness Extremity normal to inspection and full ROM Neuro oriented x3 Sensorium / Orientation: alert Motor Exam: Negative for general weakness Psych mental status grossly normal Skin no rashes or lesions noted and no wounds MDM MDM MDM Narrative Medical decision making narrative: Patient is evaluated for vaginal irritation and increased discharge. She denies any new sexual contacts. She would like to be tested for everything. Differential includes bacterial vaginitis, gonorrhea, chlamydia, PID, yeast vaginitis, trichomonas, urinary tract infection. Pelvic exam was not consistent with PID. There is clear vaginal discharge present. Urinalysis is not consistent with infection most consistent with contamination. test is negative. Syphilis, HIV, GC and chlamydia are all negative. Patient be treated empirically for BV given her symptoms. Is given first dose of Flagyl in the emergency room. Is given a prescription for a dose of fluconazole to take after her antibiotics that she states she is prone to yeast infections. Is going to follow-up with her [facility]. Patient verbalized agreement or stands plan. Discharged home in stable condition. Lab Data Labs: Laboratory Results - last 24 hr 05/18/24 05/18/24 16:40 18:03 Urine Color Yellow Urine Clarity Sl. Cloudy Urine pH 5.0 Ur Specific [place] 1.025 Urine Protein 15 H Urine Glucose (UA) Normal Urine Ketones 15 H Urine Occult Blood 10 H Urine Nitrite Negative Urine Bilirubin Negative Urine Urobilinogen Normal Ur Leukocyte Esterase 25 H Urine RBC 0-5 SEEN Urine WBC 0-5 SEEN Ur Squamous Epith Cells 5-10 SEEN Urine Bacteria RARE Urine Mucus RARE Urine Test Negative Syphilis Total Ab Non-reactive HIV 1&2 Antibody Non-Reactive Discharge Plan Triage Chief Complaint: Complaint ED Provider: Etta Nayak Dx/Rx/DC Orders Clinical Impression: Vaginal discharge, Bacterial vaginitis Instructions: ED Bacterial Vaginosis (BV) Prescriptions: New metronidazole 500 mg tablet 500 mg PO BID 7 Days Qty: 14 0RF fluconazole 150 mg tablet 150 mg PO Q3D Qty: 2 0RF Rx Instructions: take first dose after completion of antibiotics. May take another dose 3 days later as needed if symptoms persist. No Action albuterol sulfate 90 mcg/actuation HFA aerosol inhaler 1 inh inhalation Q6H PRN (Reason: shortness of breath or wheezing) Qty: 8.5 3RF loratadine [Allergy Relief (loratadine)] 10 mg tablet 10 mg PO DAILY cephalexin 500 mg capsule 500 mg PO Q12 Qty: 14 0RF albuterol sulfate [Ventolin HFA] 90 mcg/actuation HFA aerosol inhaler 1 - 2 puff inhalation Q4H PRN PRN (Reason: Wheezing) Qty: 1 0RF loratadine [Claritin] 10 mg tablet 10 mg PO DAILY Qty: 30 0RF fluconazole 150 mg tablet 150 mg PO X1 PRN (Reason: yeast) Qty: 2 0RF Rx Instructions: administer on day 1 of therapy. repeat in 1 week if needed. metronidazole 500 mg tablet 500 mg PO BID 7 Days Qty: 14 0RF fluconazole 150 mg tablet 150 mg PO Q3D Qty: 2 0RF Rx Instructions: may repeat second dose 72 hrs after first dose if symptoms persist albuterol sulfate [Ventolin HFA] 90 mcg/actuation HFA aerosol inhaler 1 - 2 puff inhalation Q4H PRN PRN (Reason: Wheezing) Qty: 1 0RF Primary Care Provider: Stephany Bae Referrals: Ange Diana CNM [Med Staff - Adv Practice Prof] - 10-14 Days if not better Stephany Bae, DO [Primary Care Provider] - Activity Restrictions/Additional Instructions: Your testing was all largely negative today. Will treat you for BV with Flagyl (metronidazole). He also given a prescription for antibiotic induced yeast infection. Please follow-up with [facility]. Given information for [facility] in [place]. Print Language: [place] Disposition Disposition: Home, Self Care
[2024-05-18 18:10] LABS: Red Blood Cells-Urine 0-5 SEEN /hpf (0-5); Squamous Epithelial Cells - UA 5-10 SEEN /hpf (5-10); White Blood Cells 0-5 SEEN /hpf (0-5)
[2024-05-18 18:11] LABS: Bacteria RARE /hpf (None Seen); Mucous, Urine RARE /hpf (<or=2+)
[2024-05-18 18:26] LABS: Internal QC Validated? YES +Cl - CLEAR BKGD; Pregnancy, Urine Negative Negative; Record Kit Lot#,Urine Preg 872158
[2024-05-18 19:03] LABS: HIV - WCH Non-Reactive (Nonreactive); Syphilis Antibodies Non-reactive
[2024-05-18] MEDS: metroNIDAZOLE 500 MG Tablet PO (19:47)
[2024-05-18 19:48] VITALS: BMI 38.7
== END 2024-05-18 20:01 | disposition home or self-care (01) ==
PROVIDERS: Emergency Provider Emergency Medicine; PCP Family Medicine; Visit Provider Emergency Medicine
DX: N76.0 Acute vaginitis (principal); J45.909 Unspecified asthma, uncomplicated; F17.210 Nicotine dependence, cigarettes, uncomplicated
CPT/HCPCS: 81001; 81025; 86703; 86780; 87210; 87491; 87591; 99282

== ENCOUNTER → 2024-06-28 | Outpatient (CLI) | payer MEDICAID, SELFPAY ==
[2024-06-29 09:07] LABS: HEPATITIS B SURFACE AG Negative (Negative); Hep C Antibodies Non Reactive (Non Reactive); Hepatitis A IgM Antibody Negative (Negative); Hepatitis B Core AB IgM Negative (Negative)
== END | disposition home or self-care (01) ==
LOC: VSLAB 09:28
PROVIDERS: PCP Family Medicine; Visit Provider Family Medicine
DX: N89.9 Noninflammatory disorder of vagina, unspecified (principal)
CPT/HCPCS: 36415; 80074

== ENCOUNTER 2024-08-28 18:27 | Emergency (ER) | payer MEDICAID, SELFPAY ==
[2024-08-28 18:28] VITALS: BP 127/82; PULSE 55; RESP 16; TEMP 36.7; O2SAT 92; BMI 37.8
--- NOTE | 2024-08-28 18:42 | EDS_ITS ---
HPI HPI - URI History of Present Illness Chief Complaint: Ear Problem Detail of Chief Complaint: Bilateral ear pain for 3 days. No trauma. Informant: patient Onset/Context/Timing Onset: Days Context: Gradual Onset Timing: Continuous Current Severity: Mild Maximum Severity: Mild Narrative Narrative: 29-year-old female no seen past medical history. Complaining of earache initially left now both. No trauma. She has not been swelling. No fever or sore throat. Prior similar symptoms: Yes Recent Illness/Hospitalization: No ROS ROS ED ROS Narrative Bilateral ear discomfort. No other symptoms. Constitutional Constitutional ED: Denies fever(s) Eyes Eyes: Denies blurry vision ENT ENT ED: Reports ear pain; Denies rhinorrhea or sore throat Cardiovascular Cardiovascular: Denies chest pain or palpitations Respiratory/Chest Respiratory/Chest: Denies cough or dyspnea Gastrointestinal Gastrointestinal: Denies abdominal pain, diarrhea, nausea or vomiting Genitourinary Genitourinary ED: Denies dysuria or hematuria Musculoskeletal Musculoskeletal: Denies arthralgias Integumentary Denies abscess Neurologic Neurologic: Denies headache(s) Psychiatric Psychiatric: Denies anxiety Endocrine Endocrinology: Denies cold intolerance Hematologic/Lymphatic Hematologic/Lymphatic: Denies easy bleeding Allergic/Immunologic Allergic/Immunologic ED: Denies mouth swelling, tongue swelling or urticaria [facility] Medical History Alcohol withdrawal Obesity (BMI 30-39.9) Vaginal discharge Seasonal allergies Asthma Home Medications ?Medication ?Instructions ?Recorded ?Last Taken ?Type albuterol sulfate 90 mcg/actuation 1 inh inhalation Q6 H PRN shortness 02/13/21 08/11/22 Rx aerosol inhaler of breath or wheezing #8.5 g matilde loratadine 10 mg tablet (Allergy 10 mg PO DAILY Check with primary 08/18/22 08/18/22 History Relief (loratadine)) doctor albuterol sulfate 90 mcg/actuation 1 - 2 puff inhalati on Q4H PRN PRN 02/29/24 Unknown Rx aerosol inhaler (Ventolin HFA) Wheezing ##1 cephalexin 500 mg capsule 500 mg PO Q12 #14 CAPSULES 0 02/29/24 Unknown Rx fluconazole 150 mg tablet 150 mg PO X1 PRN yeast 1 dos e #2 02/29/24 Unknown Rx tabs loratadine 10 mg tablet (Claritin) 10 mg PO DAILY #30 tabs 02/29/24 Unknown Rx albuterol sulfate 90 mcg/actuation 1 - 2 puff inhalati on Q4H PRN PRN 03/24/24 Unknown Rx aerosol inhaler (Ventolin HFA) Wheezing ##1 fluconazole 150 mg tablet 150 mg PO Q3D 2 doses #2 tab s 03/24/24 Unknown Rx metronidazole 500 mg tablet 500 mg PO BID 7 days #14 t abs 03/24/24 Unknown Rx fluconazole 150 mg tablet 150 mg PO Q3D 2 doses #2 tab s 05/18/24 Unknown Rx metronidazole 500 mg tablet 500 mg PO BID 7 days #14 t abs 05/18/24 Unknown Rx azithromycin 250 mg tablet 250 mg PO DAILY 4 days #4 t abs 08/28/24 Unknown Rx (Zithromax) Allergy/AdvReac Type Severity Reaction Status Date / Time penicillin G Allergy Mild Hives Verified 08/28/24 18:30 venom-honey bee (bee venom Allergy Swelling Verified 08/28/24 18:30 (honey bee)) Family History Grandmother Asthma Arthritis Surgical History History of wisdom tooth extraction Social History Smoking Status: Current some day smoker tobacco type: cigarettes alcohol intake: never substance use type: does not use what type of physical activity do you participate in: walking frequency: 5-6 times per week EXAM Physical Exam Narrative Exam Narrative: Well-appearing 29-year-old female. Vital signs stable afebrile. Sitting upright in bed. No distress. HEENT exam pupils round reactive light. Moist mucous membranes. Posterior pharynx normal. No erythema or exudate. No trouble swallowing or breathing. Left TM dull red and retracted. No perforation. Canal unremarkable. Right TM dull red and retracted also. No perforation. Canal unremarkable. Consistent with bilateral otitis media. Neck mild eustachian tube tenderness. No lymphadenopathy. Lungs clear to auscultation bilaterally. Heart regular rhythm no murmur. Rate about 60. Chest wall nontender. Abdomen soft nontender. Moving all 4 extremities. Normal strength. Nontender no edema. Neurologically she is awake and alert no focal motor deficits. Const Vital Signs: 08/28/24 18:28 Temperature 98.1 F Temperature Source Temporal Pulse Rate 55 L Respiratory Rate 16 Blood Pressure 127/82 H Blood Pressure Mean 97 Pulse Ox 92 Oxygen Delivery Method Room Air Positive well nourished and well developed; Negative for cachectic or contractures General Appearance ED: well developed and NAD; Negative for cachectic, contractures, cyanotic, diaphoretic or pallor Nutritional Appearance: Negative for cachectic HEENT Reports moist mucous membranes HEENT Narrative: Bilateral TMs dull, red and retracted. No perforation. Canal unremarkable. normocephalic Throat: posterior oropharynx normal Eyes PERRL and EOMs intact bilaterally Neck no lymphadenopathy, supple, no meningeal signs and no JVD General: Negative for anterior neck swelling or lymphadenopathy Resp normal respiratory effort and clear to auscultation bilaterally Cardio S1 normal heart sound, S2 normal heart sound and no murmurs Rate: regular rate Rhythm: regular rhythm GI non-tender, non-distended and no masses Auscultation: normoactive bowel sounds Palpation: soft; Negative for tender, guarding or hepatomegaly Back/Spine no CVA tenderness and normal ROM General Back: Negative for CVA tenderness Cervical Spine: Negative for cervical spine tenderness Thoracic Spine / Upper Back: Negative for thoracic spinal tenderness Lumbar Spine / Lower Back: Negative for lumbar spinal tenderness Sacrum: Negative for tenderness Extremity full ROM General Extremety ED: Negative for tenderness Neuro oriented x3 and CN's II-XII intact bilaterally Sensorium / Orientation: alert, oriented to person, oriented to place and oriented to time; Negative for orientation impaired, lethargic or stuporous Motor Exam: strength 5/5 throughout Psych mental status grossly normal Appearance: Negative for other Attitude: No agitated Mood & Affect: Negative for depressed, anxious or tearful Skin General Skin Exam: Negative for jaundice or pallor Lesions: no lesions Rashes: no rashes MDM MDM MDM Narrative Medical decision making narrative: 29-year-old female complaining bilateral ear aches. Exam consistent with otitis media. She has a penicillin allergy. She be placed on Zithromax. First dose here. Motrin and Tylenol for pain. Outpatient follow-up as needed. Discharge Plan Triage Chief Complaint: Ear Problem ED Provider: Bill Carrillo Dx/Rx/DC Orders Clinical Impression: Bilateral acute otitis media Instructions: ED Otitis Media Adult Prescriptions: New azithromycin [Zithromax] 250 mg tablet 250 mg PO DAILY 4 Days Qty: 4 0RF Rx Instructions: start on day 2 of therapy No Action albuterol sulfate 90 mcg/actuation HFA aerosol inhaler 1 inh inhalation Q6H PRN (Reason: shortness of breath or wheezing) Qty: 8.5 3RF loratadine [Allergy Relief (loratadine)] 10 mg tablet 10 mg PO DAILY cephalexin 500 mg capsule 500 mg PO Q12 Qty: 14 0RF albuterol sulfate [Ventolin HFA] 90 mcg/actuation HFA aerosol inhaler 1 - 2 puff inhalation Q4H PRN PRN (Reason: Wheezing) Qty: 1 0RF loratadine [Claritin] 10 mg tablet 10 mg PO DAILY Qty: 30 0RF fluconazole 150 mg tablet 150 mg PO X1 PRN (Reason: yeast) Qty: 2 0RF Rx Instructions: administer on day 1 of therapy. repeat in 1 week if needed. metronidazole 500 mg tablet 500 mg PO BID 7 Days Qty: 14 0RF fluconazole 150 mg tablet 150 mg PO Q3D Qty: 2 0RF Rx Instructions: may repeat second dose 72 hrs after first dose if symptoms persist albuterol sulfate [Ventolin HFA] 90 mcg/actuation HFA aerosol inhaler 1 - 2 puff inhalation Q4H PRN PRN (Reason: Wheezing) Qty: 1 0RF metronidazole 500 mg tablet 500 mg PO BID 7 Days Qty: 14 0RF fluconazole 150 mg tablet 150 mg PO Q3D Qty: 2 0RF Rx Instructions: take first dose after completion of antibiotics. May take another dose 3 days later as needed if symptoms persist. Primary Care Provider: Stephany Bae Referrals: Stephany Bae, DO [Primary Care Provider] - 1 Week if not improving Activity Restrictions/Additional Instructions: You have ear infections in both eardrums. The antibiotic Zithromax 1 pill a day starting tomorrow after lunch. Take 1 pill a day for the next 4 days. Motrin and Tylenol for pain. Should progressively start feeling better in 2 to 3 days. Follow-up with your primary care provider if not improving. Print Language: Japanese Disposition Disposition: Home, Self Care
[2024-08-28] MEDS: Ibuprofen 600 MG Tablet PO (18:47)
[2024-08-28] MEDS: Azithromycin 250 MG Tablet 500 MG PO (18:47)
== END 2024-08-28 18:50 | disposition home or self-care (01) ==
LOC: ED 18:44
PROVIDERS: Emergency Provider Emergency Medicine; PCP Family Medicine; Visit Provider Emergency Medicine
DX: H66.93 Otitis media, unspecified, bilateral (principal); J45.909 Unspecified asthma, uncomplicated; F17.210 Nicotine dependence, cigarettes, uncomplicated
CPT/HCPCS: 99283

== ENCOUNTER 2024-09-27 09:11 | Emergency (ER) | payer MEDICAID, SELFPAY ==
[2024-09-27 09:11] VITALS: BP 134/93; PULSE 103; RESP 18; TEMP 35.6; O2SAT 98; BMI 38.0
--- NOTE | 2024-09-27 09:24 | ED.VIS.GI ---
HPI HPI - GI History of Present Illness Chief Complaint: Abd Pain Detail of Chief Complaint: Abdominal pain Informant: patient Narrative Narrative: Patient presents with abdominal pain started about a week ago. She describes nausea and vomit in the morning and then she is nauseated throughout the day. Today she did not finish her breakfast which is unusual. She denies fever although she has woken up at times with some sweats. She describes some mild dysuria. She has had intermittent episodes of some watery stool. She has had no prior abdominal surgeries. Currently finishing her menstrual period. She does not think she is . [facility] Medical History Alcohol withdrawal Obesity (BMI 30-39.9) Vaginal discharge Seasonal allergies Asthma Home Medications ?Medication ?Instructions ?Recorded ?Last Taken ?Type albuterol sulfate 90 mcg/actuation 1 inh inhalation Q6H PRN shortness 02/13/21 08/11/22 Rx aerosol inhaler of breath or wheezing #8.5 grams loratadine 10 mg tablet (Allergy 10 mg PO DAILY Check with primary 08/18/22 08/18/22 History Relief (loratadine)) doctor albuterol sulfate 90 mcg/actuation 1 - 2 puff inhalation Q4H PRN PRN 02/29/24 Unknown Rx aerosol inhaler (Ventolin HFA) Wheezing ##1 cephalexin 500 mg capsule 500 mg PO Q12 #14 CAPSULES 02/29/24 Unknown Rx fluconazole 150 mg tablet 150 mg PO X1 PRN yeast 1 dose #2 02/29/24 Unknown Rx tabs loratadine 10 mg tablet (Claritin) 10 mg PO DAILY #30 tabs 02/29/24 Unknown Rx albuterol sulfate 90 mcg/actuation 1 - 2 puff inhalation Q4H PRN PRN 03/24/24 Unknown Rx aerosol inhaler (Ventolin HFA) Wheezing ##1 fluconazole 150 mg tablet 150 mg PO Q3D 2 doses #2 tabs 03/24/24 Unknown Rx metronidazole 500 mg tablet 500 mg PO BID 7 days #14 tabs 03/24/24 Unknown Rx fluconazole 150 mg tablet 150 mg PO Q3D 2 doses #2 tabs 05/18/24 Unknown Rx metronidazole 500 mg tablet 500 mg PO BID 7 days #14 tabs 05/18/24 Unknown Rx azithromycin 250 mg tablet 250 mg PO DAILY 4 days #4 tabs 08/28/24 Unknown Rx (Zithromax) bisacodyl 10 mg rectal suppository 10 mg UT DAILY PRN constipation 09/27/24 Unknown Rx (OneLAX Bisacodyl) #12 ea lansoprazole 30 mg capsule,delayed 30 mg PO DAILY #14 caps 09/27/24 Unknown Rx release (Prevacid) ondansetron 4 mg disintegrating 4 mg PO Q8H PRN PRN Nausea #10 tabs 09/27/24 Unknown Rx tablet Allergy/AdvReac Type Severity Reaction Status Date / Time penicillin G Allergy Mild Hives Verified 09/27/24 09:12 venom-honey bee (bee venom Allergy Swelling Verified 09/27/24 09:12 (honey bee)) Family History Grandmother Asthma Arthritis Surgical History History of wisdom tooth extraction Social History Smoking Status: Current some day smoker tobacco type: cigarettes alcohol intake: never substance use type: does not use what type of physical activity do you participate in: walking frequency: 5-6 times per week ROS ROS ED Review of Systems ROS Unobtainable: other Constitutional Constitutional ED: Reports lethargy; Denies chills, fever(s), sweats or weight loss Eyes Eyes: Denies blurry vision, change in vision or diplopia ENT ENT ED: Denies rhinorrhea or sore throat Cardiovascular Cardiovascular: Denies chest pain, orthopnea or racing heartbeat Respiratory/Chest Respiratory/Chest: Denies cough, dyspnea, dyspnea on exertion, orthopnea or sputum Gastrointestinal Gastrointestinal: Reports abdominal pain, diarrhea, nausea and vomiting Genitourinary Genitourinary ED: Denies dysuria, hematuria or urinary frequency Musculoskeletal Musculoskeletal: Denies arthralgias, back pain, myalgias or neck pain Integumentary Denies abscess, Abrasions or rash Neurologic Neurologic: Denies headache(s) or weakness Psychiatric Psychiatric: Denies anxiety, depression or suicidal thoughts Endocrine Endocrinology: Denies polydipsia, polyphagia or polyuria Hematologic/Lymphatic Hematologic/Lymphatic: Denies easy bleeding, easy bruising or lymphadenopathy Allergic/Immunologic Allergic/Immunologic ED: Denies mouth swelling, tongue swelling or urticaria EXAM Physical Exam Const Vital Signs: 09/27/24 09:11 09/27/24 11:11 Temperature 96.1 F L Temperature Source Temporal Pulse Rate 103 H 89 Respiratory Rate 18 18 Blood Pressure 134/93 H 115/75 Blood Pressure Mean 106 88 Pulse Ox 98 98 Oxygen Delivery Method Room Air Room Air Positive well nourished and well developed General Appearance ED: well developed and NAD HEENT Reports TM's clear and moist mucous membranes normocephalic and atraumatic; Negative for trauma or tenderness Tympanic Membrane ED: Yes TM's clear Eyes PERRL and EOMs intact bilaterally General Eye ED: Negative for pale conjunctiva or scleral icterus Neck no lymphadenopathy, supple and no JVD General: Negative for tenderness Chest Wall inspection of chest normal and palpation of chest normal Chest: Negative for tenderness Resp normal respiratory effort and clear to auscultation bilaterally Effort and Inspection: Negative for respiratory distress or pain with movement Auscultation: Negative for rhonchi, wheezes or diminished lung sounds Cardio regular rate, regular rhythm, S1 normal heart sound, S2 normal heart sound and no murmurs Peripheral Pulses: pulses 2+ throughout GI normal to inspection, nondistended, normoactive bowel sounds, soft to palpation, non-distended and no masses GI Narrative: Mild diffuse tenderness palpation over the lower abdomen to the right lower quadrants, suprapubic region, and left lower quadrant. There is no rebound, rigidity, or peritoneal signs. No mass palpated. Back/Spine no CVA tenderness and no thoracic nor lumbar tenderness Extremity normal to inspection General Extremety ED: Negative for edema General Extremity: Negative for edema Neuro oriented x3, CN's II-XII intact bilaterally, no sensory deficits noted and gait normal Sensorium / Orientation: awake, alert, oriented to person, oriented to place and oriented to time Motor Exam: strength 5/5 throughout and strength abnormal Psych mental status grossly normal Skin no rashes or lesions noted and no wounds MDM MDM MDM Narrative Medical decision making narrative: Patient presents with 1 week history of vomiting and occasional diarrhea. Clinically she looks well. Abdominal exam tender to lower abdomen relatively benign. CBC with differential white count 9.8 with hemoglobin 13.4 platelet count 298. Chemistries unremarkable. hCG was negative. Urinalysis was normal. CT scan of the abdomen pelvis was unremarkable. At this point etiology of her vomiting and abdominal pain unclear. Suspect possibility of a viral illness versus gastritis. Will treat with Prevacid and Zofran. Advised to follow-up with primary care physician within the next 3 to 5 days. Vies return if persistent vomiting, worsening pain, fever, or condition should worsen anyway. Lab Data Attestation: I reviewed the patient's lab results. Labs: Laboratory Results - last 24 hr 09/27/24 09/27/24 09:30 11:20 WBC 9.8 RBC 4.57 Hgb 13.4 Hct 40.9 MCV 89.5 MCH 29.3 MCHC 32.8 RDW Std Deviation 43.9 RDW Coeff of Jose 13.4 Plt Count 298 MPV 10.1 Immature Gran % (Auto) 0.500 Neut % (Auto) 68.9 Lymph % (Auto) 21.6 [place] % (Auto) 6.2 Eos % (Auto) 2.3 Baso % (Auto) 0.5 Absolute Neuts (auto) 6.8 Absolute Lymphs (auto) 2.12 Nucleated RBC % 0 Sodium 139 Potassium 3.7 Chloride 106 Carbon Dioxide 21.4 Anion Gap 12 BUN 11 Creatinine 0.62 L Estim Creat Clear Calc 152.86 Est GFR (MDRD) Non-Af 123 BUN/Creatinine Ratio 18.0 Glucose 92 Calcium 9.1 Total Bilirubin 0.24 AST 24 ALT 23 Alkaline Phosphatase 66 Total Protein 6.7 Albumin 4.2 Globulin 2.5 Albumin/Globulin Ratio 1.7 Serum , Qual NEGATIVE Urine Color Yellow Urine Clarity Clear Urine pH 6.0 Ur Specific [place] 1.015 Urine Protein Negative Urine Glucose (UA) Normal Urine Ketones Negative Urine Occult Blood 150 H Urine Nitrite Negative Urine Bilirubin Negative Urine Urobilinogen Normal Ur Leukocyte Esterase Negative Urine RBC 0-5 SEEN Urine WBC 0-5 SEEN Ur Squamous Epith Cells 5-10 SEEN Urine Bacteria 1+ Urine Mucus 0 SEEN Radiography Diagnostic Testing: Clinical Impression(s) from Imaging Studies Abdomen/Pelvis CT 09/27/24 11:27 IMPRESSION: 1. No acute noncontrast findings. 2. Additional description as above. Reading Location: [facility] Discharge Plan Triage Chief Complaint: Abd Pain ED Provider: Allan Rodriguez Dx/Rx/DC Orders Clinical Impression: Abdominal pain, Vomiting Instructions: ED Abdominal Pain Unkn Cause Fem, ED Vomiting (Adult) Prescriptions: New ondansetron 4 mg tablet,disintegrating 4 mg PO Q8H PRN PRN (Reason: Nausea) Qty: 10 0RF lansoprazole [Prevacid] 30 mg capsule,delayed release(DR/EC) 30 mg PO DAILY Qty: 14 0RF bisacodyl [OneLAX Bisacodyl] 10 mg suppository 10 mg UT DAILY PRN (Reason: constipation) Qty: 12 0RF No Action albuterol sulfate 90 mcg/actuation HFA aerosol inhaler 1 inh inhalation Q6H PRN (Reason: shortness of breath or wheezing) Qty: 8.5 3RF loratadine [Allergy Relief (loratadine)] 10 mg tablet 10 mg PO DAILY cephalexin 500 mg capsule 500 mg PO Q12 Qty: 14 0RF albuterol sulfate [Ventolin HFA] 90 mcg/actuation HFA aerosol inhaler 1 - 2 puff inhalation Q4H PRN PRN (Reason: Wheezing) Qty: 1 0RF loratadine [Claritin] 10 mg tablet 10 mg PO DAILY Qty: 30 0RF fluconazole 150 mg tablet 150 mg PO X1 PRN (Reason: yeast) Qty: 2 0RF Rx Instructions: administer on day 1 of therapy. repeat in 1 week if needed. metronidazole 500 mg tablet 500 mg PO BID 7 Days Qty: 14 0RF fluconazole 150 mg tablet 150 mg PO Q3D Qty: 2 0RF Rx Instructions: may repeat second dose 72 hrs after first dose if symptoms persist albuterol sulfate [Ventolin HFA] 90 mcg/actuation HFA aerosol inhaler 1 - 2 puff inhalation Q4H PRN PRN (Reason: Wheezing) Qty: 1 0RF metronidazole 500 mg tablet 500 mg PO BID 7 Days Qty: 14 0RF fluconazole 150 mg tablet 150 mg PO Q3D Qty: 2 0RF Rx Instructions: take first dose after completion of antibiotics. May take another dose 3 days later as needed if symptoms persist. azithromycin [Zithromax] 250 mg tablet 250 mg PO DAILY 4 Days Qty: 4 0RF Rx Instructions: start on day 2 of therapy Primary Care Provider: Stephany Bae Referrals: Stephany Bae, DO [Primary Care Provider] - 3-5 Days Print Language: [place] Disposition Disposition: Home, Self Care
[2024-09-27 09:41] LABS: Absolute Lymphocyte Count 2.12 X10^3/uL (0.83-4.51); Absolute Neutrophil Count 6.8 X10^3/uL (2.0-7.7); Basophil# 0.05 X10^3/uL; Basophil% 0.5 % (0-1); Eosinophil# 0.23 X10^3/uL; Eosinophils% 2.3 % (0-5); Hematocrit 40.9 % (37-47); Hemoglobin 13.4 g/dL (12.0-15.0); Lymphocyte # 2.12 X10^3/ul (0.83-4.51); Lymphocyte % 21.6 % (19-41); Mean Corp Hgb Conc 32.8 g/dL (32-36); Mean Corpuscular Hgb 29.3 pg (27.0-32.0); Mean Corpuscular Volume 89.5 fL (81-99); Mean Platelet Vol. 10.1 fl (6.2-12.0); Monocyte# 0.61 X10^3/uL; Monocyte% 6.2 % (0-10); NRBC Flagged by Analyzer 0 % (0-5); Neutrophil # 6.75 X10^3/uL (2.7-7.7); Neutrophil % 68.9 % (47-70); Platelet Count 298 K/mm3 (150-450); RBC Distribution Width CV 13.4 % (11.6-14.6); RBC Distribution Width SD 43.9 fl (35.1-43.9); Red Blood Count 4.57 M/mm3 (4.2-5.4); White Blood Count 9.8 K/mm3 (4.4-11.0)
[2024-09-27] MEDS: Ondansetron 4 MG/2 ML Vial IV (10:11)
[2024-09-27] MEDS: 0.9% Normal Saline (1000mL) 1,000 ML 999 ML IV (10:11)
[2024-09-27 10:44] LABS: ALB/GLOB Ratio 1.7 RATIO (0.9-2.4); AST(SGOT) 24 U/L (<=31); Alanine Aminotransfer ALT/SGPT 23 U/L (<=34); Albumin, Serum 4.2 g/dL (3.5-5.0); Alkaline Phosphatase 66 U/L (35-104); Anion Gap 12 (5-15); BUN 11 mg/dL (4-19); Calcium,Total 9.1 mg/dL (7.6-11.0); Carbon Dioxide 21.4 mmol/L (21.0-32.0); Chloride 106 mmol/L (98-108); Creatinine, Serum 0.62 mg/dL (0.70-1.20); EST Glomerular Filtration Rate 123 (>60); Estimated Creatinine Clearance 152.86 ml/min (50-250); Globulin 2.5 g/dL (2.2-4.2); Glucose 92 mg/dL (70-99); Potassium 3.7 mmol/L (3.3-5.1); Protein, Total 6.7 g/dL (5.9-8.4); Sodium Level 139 mmol/L (133-145); Total Bilirubin 0.24 mg/dL (0.00-1.30)
[2024-09-27 11:05] LABS: Internal QC Validated? YES +Cl - CLEAR BKGD; Pregnancy, Serum, hCG Quali. NEGATIVE Negative; Record Kit Lot#, Serum Preg. 899023
[2024-09-27 11:11] VITALS: BP 115/75; PULSE 89; RESP 18; O2SAT 98
--- NOTE | 2024-09-27 11:27 | CT_ITS ---
PROCEDURE: ABDOMEN/PELVIS WITHOUT CONT 09/27/2024 REASON FOR EXAM: PAIN TECHNIQUE: Abdomen and pelvis CT without intravenous contrast. Noncontrast technique limits evaluation of the abdominal and pelvic viscera. Coronal and Sagittal reformats were provided. One or more dose reduction techniques were used (e.g., Automated exposure control, adjustment of the mA and/or kV according to patient size, use of iterative reconstruction technique). PATIENT PREPARATION: Per protocol ORAL CONTRAST TYPE: None. AMOUNT: mL COMPARISON: None RADIATION DOSE SUMMARY: CTDlvol: 19.12 mGy DLP: 1050.99 mGycm One or more dose reduction techniques were used (e.g., Automated exposure control, adjustment of the mA and/or kV according to patient size, use of iterative reconstruction technique). FINDINGS: Note that evaluation of the abdominopelvic viscera, vasculature, and remaining soft tissues is limited in the absence of IV contrast. Lung bases: Atelectasis/scarring.. Liver: Unremarkable. Spleen: Unremarkable. Gallbladder: Faint high-density layering possible sludge versus noncalcified stones. Pancreas: Unremarkable. Adrenals: Punctate high-density but noncalcified focus at the RIGHT upper pole, too small to characterize, statistically likely a hemorrhagic or proteinaceous cyst. Kidneys: Unremarkable. Bowel: Unremarkable. Normal caliber appendix. Lymph nodes: Unremarkable. Vasculature: Unremarkable. Peritoneum: Unremarkable. Bladder: Underdistended and suboptimally evaluated, grossly unremarkable. Reproductive Organs: Unremarkable. Body Wall: Unremarkable. Bones: Unremarkable. CT/Abdomen/Pelvis without Cont IMPRESSION: 1. No acute noncontrast findings. 2. Additional description as above. Reading Location: [id number]
[2024-09-27 11:29] LABS: Mucous, Urine 0 SEEN /hpf (<or=2+)
[2024-09-27 12:29] LABS: Color, Urine Yellow (Yellow); Glucose, Dipstick Normal (Normal); Ketone-Dipstick Negative (Negative); Leukocyte Esterase-Dipstick Negative /ul (Negative); Nitrite-Dipstick Negative (Negative); Occult Blood-Urine 150 /ul (Negative); Protein-Dipstick Negative (Negative); Specific Gravity, Urine 1.015 (1.002-1.030); Urine Bilirubin Dipstick Negative (Negative); Urine Clarity Clear (Clear); Urine Urobilinogen Normal (Normal)
[2024-09-27 12:46] LABS: Red Blood Cells-Urine 0-5 SEEN /hpf (0-5); Squamous Epithelial Cells - UA 5-10 SEEN /hpf (5-10); White Blood Cells 0-5 SEEN /hpf (0-5)
[2024-09-27 12:48] LABS: Bacteria 1+ /hpf (None Seen)
[2024-09-27 13:57] VITALS: BP 118/78; PULSE 78; RESP 14; TEMP 36.8; O2SAT 98
== END 2024-09-27 13:58 | disposition home or self-care (01) ==
PROVIDERS: Emergency Provider Emergency Medicine; PCP Family Medicine; Visit Provider Emergency Medicine
DX: R10.9 Unspecified abdominal pain (principal); R11.2 Nausea with vomiting, unspecified; R19.7 Diarrhea, unspecified; J45.909 Unspecified asthma, uncomplicated; Z79.899 Other long term (current) drug therapy; F17.210 Nicotine dependence, cigarettes, uncomplicated
CPT/HCPCS: 74176; 80053; 81001; 84703; 85025; 96361; 96374; 99283; A4216; J2405

== ENCOUNTER 2024-12-26 17:30 | Emergency (ER) | payer MEDICAID, SELFPAY ==
[2024-12-26 17:33] VITALS: BP 139/88; PULSE 94; RESP 18; TEMP 37.3; O2SAT 98; BMI 35.9
--- NOTE | 2024-12-26 20:25 | ED.RN ---
Pt name called to start iv and obtain bloodwork. Pt not found, assumed pt LWBS.
--- NOTE | 2024-12-26 20:25 | ED.RN ---
Pt name called to start iv and obtain bloodwork. Pt not found, assumed pt LWBS.
== END 2024-12-26 20:25 | disposition left against medical advice (07) ==
LOC: ED 20:29
PROVIDERS: PCP Family Medicine
DX: Z53.21 Procedure and treatment not carried out due to patient leaving prior to being seen by health care provider (principal)

== ENCOUNTER 2025-01-17 18:39 | Emergency (ER) | payer MEDICAID, SELFPAY ==
[2025-01-17 18:40] VITALS: BP 122/87; PULSE 107; RESP 16; TEMP 37.1; O2SAT 98; BMI 36.8
[2025-01-17 19:19] LABS: Mucous, Urine 0 SEEN /hpf (<or=2+)
[2025-01-17 19:33] LABS: Color, Urine Straw (Yellow); Glucose, Dipstick Normal (Normal); Ketone-Dipstick Negative (Negative); Leukocyte Esterase-Dipstick Negative /ul (Negative); Nitrite-Dipstick Negative (Negative); Occult Blood-Urine Negative /ul (Negative); Protein-Dipstick 15 mg/dl (Negative); Specific Gravity, Urine 1.010 (1.002-1.030); Urine Bilirubin Dipstick Negative (Negative)
[2025-01-17 19:39] LABS: Internal QC Validated? YES +Cl - CLEAR BKGD; Pregnancy, Urine Negative Negative; Record Kit Lot#,Urine Preg 962302
[2025-01-17 20:17] LABS: Red Blood Cells-Urine 0-5 SEEN /hpf (0-5); Squamous Epithelial Cells - UA 0-5 SEEN /hpf (5-10)
--- NOTE | 2025-01-17 20:29 | CT_ITS ---
PROCEDURE: ABDOMEN/PELVIS W IV CONT ONLY 01/17/2025 REASON FOR EXAM: L FLANK PAIN TECHNIQUE: ABDOMEN/PELVIS W IV CONT ONLY Coronal and Sagittal reconstruction series were provided. CONTRAST: Isovue 370 VOLUME: 97 mL One or more dose reduction techniques were used (e.g., Automated exposure control, adjustment of the mA and/or kV according to patient size, use of iterative reconstruction technique. RADIATION DOSE SUMMARY: CTDlvol: 33 mGy DLP: 1195 mGycm COMPARISON: 09/27/2024 FINDINGS: Clear lung bases. Normal heart size. Upper abdominal solid organs are unremarkable. Normal gallbladder. No hydronephrosis. Normal bladder. Normal uterus and left ovary. Involuting right ovarian cyst. No significant pelvic free fluid. No retroperitoneal or pelvic adenopathy. No free air. Nondistended bowel. Normal appendix. No acute large bowel findings. No acute abdominal wall findings. CT/Abdomen/Pelvis W IV Cont ONLY IMPRESSION: Recent right ovarian cyst rupture, but no pelvic free fluid. No acute abdominopelvic findings otherwise noted. Reading Location: [place] [id number]
[2025-01-17 20:40] VITALS: BP 135/78; PULSE 91; RESP 18; O2SAT 99
[2025-01-17 20:52] LABS: Hematocrit 38.1 % (37-47); Hemoglobin 12.4 g/dL (12.0-15.0); Immature Granulocytes Count 0.030 X10^3/uL (0.0-0.0); Mean Corp Hgb Conc 32.5 g/dL (32-36); Mean Corpuscular Volume 91.4 fL (81-99); Mean Platelet Vol. 10.3 fl (6.2-12.0); NRBC Flagged by Analyzer 0 % (0-5); Platelet Count 363 K/mm3 (150-450); RBC Distribution Width CV 12.9 % (11.6-14.6); RBC Distribution Width SD 42.9 fl (35.1-43.9); Red Blood Count 4.17 M/mm3 (4.2-5.4); White Blood Count 11.4 K/mm3 (4.4-11.0)
[2025-01-17] MEDS: 0.9% Normal Saline (1000mL) 1,000 ML 999 ML IV (21:03)
[2025-01-17 21:37] LABS: AST(SGOT) 22 U/L (<=31); Alanine Aminotransfer ALT/SGPT 22 U/L (<=34); Albumin, Serum 4.4 g/dL (3.5-5.0); Alkaline Phosphatase 84 U/L (35-104); Anion Gap 13 (5-15); BUN 11 mg/dL (4-19); BUN/Creat Ratio 15.1 RATIO (10-20); Calcium,Total 8.9 mg/dL (7.6-11.0); Carbon Dioxide 21.6 mmol/L (21.0-32.0); Chloride 105 mmol/L (98-108); Estimated Creatinine Clearance 128.18 ml/min (50-250); Globulin 2.3 g/dL (2.2-4.2); Glucose 99 mg/dL (70-99); Lipase 18 U/L (13-75); Potassium 3.6 mmol/L (3.3-5.1)
[2025-01-17 22:00] VITALS: BP 131/73; PULSE 89; RESP 16; O2SAT 100
[2025-01-17 23:00] VITALS: BP 157/97; PULSE 88; RESP 18; TEMP 36.6; O2SAT 99
--- OUTSIDE RECORDS SUMMARY | 2025-01-17 23:14 | XMS RPT_ITS | CCD ---
Author Organization [facility] Care Team Providers Care Restaurant Crew Person Name Role Phone JAQUI GANDHI Unavailable Unavailable JAQUI GANDHI Unavailable Unavailable Aisha Mendoza NP Unavailable Unavailable PHYSICIAN, NO PCP Primary Care Unavailable PHYSICIAN, NO PCP Primary Care Unavailable PHYSICIAN, NO PCP Primary Care Unavailable PHYSICIAN, NO PCP Primary Care Unavailable PHYSICIAN, NO PCP Primary Care Unavailable NO, PHYSICIAN Primary Care Unavailable LUIS FELIPE DUNNE Attending Unavailable ISA MCKEON Attending Unavailab le NO, PHYSICIAN Primary Care Unavailable Unavailable Primary Care Provider UnavailDENICE Gomes Attending Unavail able NO, PHYSICIAN Primary Care Unavailable NO, PHYSICIAN Primary Care Unavailable ENID PARKER Attending Unavailable Unavailable Primary Care Provider UnavailDr. Nanci Lambert Primary Care Provider Dr. Otto Lisa Emergency Provider [phone] Enzo Vargas Admit Provider Dr. Enzo Vargas Other Provider Dr. Emily Godfrey Attending Provider Dr. Emily Godfrey Other Provider Corey BARREL COATER,SUGAR SAMPLER, Isidro Primary Care Provider Corey BARREL COATER,SUGAR SAMPLER, Isidro Primary Care Provider Fidel EXPOSURE MACHINE OPERATOR, Araseli Attending Unavailable Fidel EXPOSURE MACHINE OPERATOR, Araseli Referring Unavailable Unknown, Referring Provider Unavailable Unav ailable Unknown, Pcp Unavailable Unavailable Amanda Steen Unavailable Unavailable Elba Rondon Unavailable Unavailable Ronnell Nunn Unavailable Unavailable Jody Melchor Unavailable Unavailable Nazia Galdamez Attending Unavailable UNKNOWN, PCP Primary Care Unavailable Isa Gerber Attending Unavailable UNKNOWN, PCP Primary Care Unavailable Devonte, Dr. Trinidad Mcgill Attending Unav ailable Devonte, Dr. Trinidad Mcgill Referring Unav ailable UNKNOWN, PCP Primary Care Unavailable UNKNOWN, PCP Primary Care Unavailable Enio, Ms. Amanda Orozco Attending Unavaila ble UNKNOWN, PCP Primary Care Unavailable Edouard, Mr. Ronnell Khan Attending Unavaila ble UNKNOWN, PCP Primary Care Unavailable Jody Melchor Attending Unavailable Caity Montoya Attending Unavailable Self, Referral Referring Unavailable UNKNOWN, PCP Primary Care Unavailable WHITE, ISIDRO Primary Care Unavailable VAN, CNC TRANSPORTATION Admitting Unavaila ble VAN, CNC TRANSPORTATION Attending Unavaila ble VAN, CNC TRANSPORTATION Consulting Unavaila ble WHITE, ISIDRO Primary Care Unavailable BAZIE, DENICE Admitting Unavailable BAZIE, DENICE Attending Unavailable BAZIE, DENICE Consulting Unavailable Unavailable Primary Care Provider Unavailabl e Generic Provider MD, No Assigned Pcp Primary Car e Provider Unavailable GENERIC PROVIDER, NO ASSIGNED PCP Primary Care Unavailable Unavailable Primary Care Provider Unavailabl e PROVIDER, UNKNOWN Admitting Unavailable KEMAL FIELD Attending Unavailable ISA MORROW Attending Unavailable PROVIDER, UNKNOWN Admitting Unavailable PROVIDER, UNKNOWN Admitting Unavailable PROVIDER, UNKNOWN Attending Unavailable PROVIDER, UNKNOWN Attending Unavailable PROVIDER, UNKNOWN Admitting Unavailable PROVIDER, UNKNOWN Admitting Unavailable PROVIDER, UNKNOWN Attending Unavailable PROVIDER, UNKNOWN Attending Unavailable PROVIDER, UNKNOWN Admitting Unavailable PROVIDER, UNKNOWN Admitting Unavailable PROVIDER, UNKNOWN Attending Unavailable LUIS FELIPE MARIE Referring Unavailable PROVIDER, UNKNOWN Attending Unavailable PROVIDER, UNKNOWN Admitting Unavailable LUIS FELIPE MARIE Referring Unavailable PROVIDER, UNKNOWN Attending Unavailable PROVIDER, UNKNOWN Admitting Unavailable PROVIDER, UNKNOWN Attending Unavailable PROVIDER, UNKNOWN Admitting Unavailable PROVIDER, UNKNOWN Attending Unavailable PROVIDER, UNKNOWN Admitting Unavailable PROVIDER, UNKNOWN Admitting Unavailable LUIS FELIPE MARIE Attending Unavailable PROVIDER, UNKNOWN Admitting Unavailable JUN CARDENAS Attending Unavailable PROVIDER, UNKNOWN Admitting Unavailable KARLA ESTRADA Attending Unavailable Apoorva BARREL COATER.SUGAR SAMPLER, Reyna A Unavailable Stephany Bae DO Primary Care Provider Dr. Etta Nayak DO Attending Provider Dr. Etta Nayak DO Emergency Provider Stephany Bae DO Attending Provider Dr. Bill Carrillo MD Emergency Provider Stephany Bae DO Primary Care Provider Dr. Bill Carrillo MD Attending Provider [phone] Dr. Allan Rodriguez DO Emergency Provider [phone] Catalino DO, Stephany Primary Care Provider Dr. Allan Rodriguez DO Attending Provider Provider, Ed Physician Emergency Provider Wilberjose aidamoris Oleghe, Efewongbe Primary Care Unavailable Joe Hartmann Attending Unavailable Etta Nayak Attending Unavailable Catalino VSC, Stephany Primary Care Unavailable Bill Carrillo Attending Unavailable Catalino VSC, Stephany Primary Care Unavailable Catalino VSC, Stephany Primary Care Unavailable Catalino VSC, Stephany Attending Unavailable Provider, Ed Physician Attending Unavailab le Catalino VSC, Stephany Primary Care Unavailable Catalino VSC, Stephany Primary Care Unavailable Catalino VSC, Stephany Attending Unavailable Allan Rodriguez Attending Unavailable Catalino VSC, Stephany Primary Care Unavailable Oleghe, Efewongbe Primary Care Unavailable Tavo Urrutia Attending Unavailable ELIZABETH HAINES Attending Unavailable NATHANIEL MORALES Attending Unavailable VALENTIN LEAHY Attending Unavailable NATHANIEL MORALES Attending Unavailable Allergies Allergy Classification Reported Allergen(s) Allergy Type Date of Onset Reaction(s) Facility (20 sources) Penicillins; Translations: [PENICILLINS] Propensity to adverse reactions (disorder) 2 Adverse reaction to drug, Rash, Hives [facility] Repository (4 sources) Penicillin; Translations: [PENICILLIN] Drug Allergy 8 Unknown [facility] Repository (20 sources) Penicillin; Translations: [PENICILLIN G] Drug Allergy 0 Hives [facility] Repository (3 sources) BEE VENOM PROTEIN (HONEY BEE); Translations: [BEE VENOM PROTEIN (HONEY BEE)] Propensity to adverse reactions to drug (disorder) 8 [facility] Repository (20 sources) Venom-Honey Bee; Translations: [VENOM-HONEY BEE] Drug Allergy 8 Swelling, Anaphylactic Shock [facility] Work Phone: (20 sources) Bee pollen; Translations: [BEE POLLEN] Drug Allergy 3 Anaphylaxis [facility] Work Phone: (20 sources) beeswax; Translations: [BEESWAX] Drug Allergy 4 [facility] (1 source) ALLERGIES NOT ON FILE; Translations: [ALLERGIES NOT ON FILE] Propensity to adverse reactions (disorder) [facility] Repository (20 sources) Bee pollen Propensity to adverse reactions to drug 3 Anaphylactic Shock [facility] (1 source) bee venom; Translations: [BEE VENOM] Propensity to adverse reactions to drug (disorder) 8 [facility] Repository (1 source) venom-honey bee Drug allergy (disorder) 5 [facility] Repository Medications Current Medications Medication Drug Class(es) Dates Sig (Normalized) Sig (Original) [id number] actuat albuterol 0.09 mg/actuat metered dose inhaler (20 sources) beta2-Adrenergic Agonist Start: 12-20-2024 take 2 puff(s) by inhalation every four hours as needed for wheezing albuterol HFA (PROVENTIL HFA, VENTOLIN HFA) 90 mcg/actuation inhaler Inhale 2 puffs as instructed every 4 hours as needed for wheezing/shortnes s of breath. 6.7 g 12/20/2024 Active Start: 02-29-2024 Albuterol Sulf ate (Ventolin Hfa) 90 mcg/actuation HFA aerosol inhaler Active 1 - 2 NMA INHALATION EVERY 4 HOURS NEEDED as needed for Wheezing 1 0 March 24, 2024 12:00am Start: 08-11-2023 take 2 puff(s) by in halation every four hours as needed albuterol (Proventil HFA) INHALATION HFA inhaler (VENTOLIN,PROAIR,PROVENTIL) 90mcg Inhale 2 puffs every 4 hours by inhalation route as needed. 8.5 g 12/31/2023 Active Start: 05-22-2023 End: 07-24-2023 take 2 puff(s) by mouth every four hours albuterol (Proventil HFA) INHALATION HFA inhaler (VENTOLIN,PROAIR,PROVENTIL) 90mcg Inhale 2 puffs by mouth every 4 hours. 8.5 g 07/18/2023 Active Start: 11-28-2022 take 2 puff(s) by in halation every six hours as needed albuterol HFA 90 mcg/actuation inhaler Indications: Mild intermittent asthma without complication Inhale 2 Puffs into the lungs every 6 (six) hours as needed for shortness of breath 18 g 3 11/28/2022 Active Start: 09-18-2022 albuterol HFA 90 mcg/actuation inhaler Start: 06-28-2022 End: 10-12-2023 take 2 puff(s) by inhalation every four hours as needed for wheezing albuterol HFA (PROVENTIL HFA, VENTOLIN HFA) 90 mcg/actuation inhaler Inhale 2 Puffs as instructed every 4 hours as needed for wheezing/shortness of breath. 8 g 0 06/28/2022 10/12/2023 Discontinued Start: 03-23-2022 End: 10-12-2023 take 2 puff(s) by inhalation every six hours as needed for wheezing albuterol HFA (PROVENTIL HFA, VENTOLIN HFA) 90 mcg/actuation inhaler Inhale 2 Puffs as instructed every 6 hours as needed for wheezing/shortness of breath. 1 Each 10/12/2023 Active Start: 08-09-2021 take 2 puff(s) by in halation every four to six hours as needed albuterol sulfate HFA 90 mcg/actuation aerosol inhaler inhale 2 puff by inhalation route every 4 - 6 hours as needed - Active Start: 02-13-2021 End: 02-13-2021 Albuterol Sulfate 90 mcg/act uation HFA aerosol inhaler Active 1 NMA INHALATION EVERY 6 HOURS as needed for shortness of breath or wheezing 8.5 3 February 13, 2021 2:50pm Start: 02-13-2021 End: 02-13-2021 Albuterol Sulfate Active 1 I [facility] INHALATION EVERY 6 HOURS 8.5 February 13, 2021 2:50pm Start: 02-13-2021 End: 02-13-2021 Albuterol Sulfate 90 mcg/act uation HFA aerosol inhaler Discontinued 1 NMA INHALATION ONCE February 13, 2021 12:00am February 13, 2021 2:12pm Start: 02-13-2021 End: 02-13-2021 Albuterol Sulfate Discontinu ed 1 INH INHALATION ONCE February 13, 2021 12:00am February 13, 2021 2:12pm Start: 11-08-2019 End: 10-12-2023 take 2 puff(s) by inhalation every four hours as needed for wheezing albuterol HFA (VENTOLIN HFA) 90 mcg/actuation inhaler Inhale 2 Puffs as instructed every 4 hours as needed for Wheezing/Shortness of Breath. 1 Inhaler 0 12/01/2019 10/12/2023 Discontinued Comment on above: Inhale 2 Puffs as in structed every 4 hours as needed. Inhale 2 Puffs as in structed every 4 hours as needed for Wheezing/Shortness of Breath. Inhale 2 Puffs as in structed every 6 hours as needed. Inhale 2 Puffs into the lungs every 6 (six) hours as needed for shortness of breath azithromycin 250 mg oral tablet (20 sources) Macrolide Antimicrobial Start: 08-29-19 take 2 tablets by mouth once daily Azithromycin (Zithromax) 250 mg tablet Active 250 mg PO DAILY 4 4 0 August 28, 2024 1:00am start on day 2 of therapy Start: 09-10-2023 End: 09-10-2023 azithromycin (Zithromax) tab let 2,000 mg Start: 08-28-2023 take 1 tablet by josette th once daily azithromycin (ZITHROMAX) 500 MG tablet Take 1 tablet by mouth every day for 3 days 3 Tablet 08/28/2023 Active bisacodyl 10 mg rectal suppository (2 sources) Stimulant Laxative Start: 09-27-2024 Bisacodyl (Onelax Bisacodyl) 10 mg suppository Active 10 mg RC DAILY as needed for constipation 12 September 27, 2024 12:00am 60 actuat budesonide 0.08 mg/actuat / formoterol fumarate 0.0045 mg/actuat metered dose inhaler (14 sources) Corticosteroid, beta2-Adrenergic Agonist Start: 05-10-2024 take 2 puff(s) by inhalation twice daily SYMBICORT 80-4.5 mcg/actuation inhaler Inhale 2 Puffs as instructed two times a day. 05/10/2024 Active cefdinir 300 mg oral capsule (2 sources) Cephalosporin Antibacterial Start: 03-02-2023 End: 03-11-2023 take 1 capsule by mouth twice daily cefdinir 300 mg oral capsule ; 1 cap(s) orally 2 times a day Quantity: 20 Refills: 0 Ordered: 02-Mar-2023 Ronnell Nunn Start: 02-Mar-2023 End: 11-Mar-2023 Generic Substitution Allowed Comments: Finish all this medication unless otherwise directed by prescriber. Comment on above: Finish all this medi cation unless otherwise directed by prescriber. cephalexin 500 mg oral capsule (8 sources) Cephalosporin Antibacterial Start: 02-29-2024 take 1 capsule by mouth every twelve hours Cephalexin 500 mg capsule Active 500 mg PO EVERY 12 HOURS 14 February 29, 2024 12:00am Start: 01-17-2024 End: 01-24-2024 take 1 capsule by mouth twice daily cephALEXin (KEFLEX) 500 MG capsule Take 1 Capsule by mouth 2 times daily for 7 days. 14 Capsule 01/17/2024 01/24/2024 Active cetirizine hydrochloride 10 mg oral tablet (20 sources) Histamine-1 Receptor Antagonist Start: 08-12-2022 take 1 tablet by mouth once daily in the morning cetirizine (ZYRTEC) 10 mg tablet Indications: Dermatographia Take 1 tablet by mouth once daily. 90 tablet 3 01/23/2023 8:23 AM EDT 01/23/2023 Active Start: 08-09-2021 take 1 capsule by mo [facility] once daily All Day Allergy (cetirizine) 10 mg capsule take 1 capsule by mouth daily - Active Comment on above: Take 1 tablet by [facility] once daily. ciprofloxacin 500 mg oral tablet (1 source) Quinolone Antimicrobial Start: 06-08-20 take 500 mg by mouth twice daily Ciprofloxacin Hcl Active 500 MG PO TWICE A DAY June 08, 2022 12:00am doxycycline monohydrate 100 mg oral tablet (20 sources) Tetracycline-class Drug Start: 08-21-19 End: 08-28-19 take 1 tablet by mouth twice daily doxycycline monohydrate 100 mg tablet Indications: Exposure to STD Take 1 tablet by mouth two times a day for 7 days. 14 tablet 08/20/2024 08/27/2024 Active Start: 03-26-2024 take 1 capsule by mo [facility] twice daily doxycycline (VIBRAMYCIN) 100 MG capsule Take 1 capsule twice a day by oral route for 7 days. 14 Capsule 09/15/2023 Active Start: 03-11-2023 End: 09-10-2023 take 1 tablet by mouth twice daily doxycycline (VIBRA-TABS) 100 MG tablet Take 1 tablet by mouth 2 times daily 14 Tablet 03/11/2023 Active Start: 02-16-2023 End: 02-22-2023 take 1 tablet by mouth twice daily Adoxa 100 mg oral tablet ; 1 tab(s) orally 2 times a day Quantity: 14 Refills: 0 Ordered: 16-Feb-2023 Arley Steenn Start: 16-Feb-2023 End: 22-Feb-2023 Generic Substitution Allowed Comments: Avoid prolonged or excessive exposure to direct and/or artificial sunlight while taking this medication.Do not take this drug if you are .Finish all this medication unless otherwise directed by prescriber.Medication should be taken with plenty of water. Comment on above: Avoid prolonged or e xcessive exposure to direct and/or artificial sunlight while taking this medication.Do not take this drug if you are .Finish all this medication unless otherwise directed by prescriber.Medication should be taken with plenty of water. etonogestrel 68 mg drug implant (10 sources) Progestin Start: 2018 End: 2023 inject 68 mg by subcutaneous injection once daily Etonogestrel Active 68 MG SQ DAILY April 30, 2020 12:00am Comment on above: 1 Each by SUBDERMAL route as directed. 68 mg by SUBDERMAL r oute continuous. ferrous sulfate 325 mg oral tablet (14 sources) Start: 2023 take 1 tablet by mouth every twelve hours FEROSUL 325 mg (65 mg iron) tablet Take 1 tablet by mouth every 12 hours. 06/03/2024 Active fluconazole 150 mg oral tablet (20 sources) Azole Antifungal Start: 2024 End: 2024 take 1 tablet by mouth once daily fluconazole (DIFLUCAN) 150 mg tablet Take 1 tablet by mouth once daily for 1 day. 1 tablet 12/23/2024 12/24/2024 Active Start: 12-09-2024 End: 12-09-2024 fluconazole (DIFLUCAN) 150 m g tablet Indications: Vaginal yeast infection Take 1 tablet by mouth one time only for 1 dose. Repeat in 3 days as needed. 2 tablet 12/09/2024 12/09/2024 Active Start: 11-30-2024 End: 11-30-2024 take 1 tablet by mouth once fluconazole (DIFLUCAN) 150 mg tablet Indications: Vaginal yeast infection Take 1 tablet by mouth one time only for 1 dose. 1 tablet 11/30/2024 11/30/2024 Start: 03-24-2024 Fluconazole 15 0 mg tablet Active 150 mg PO Every 3 Days 2 0 May 18, 2024 1:00am take first dose after completion of antibiotics. May take another dose 3 days later as needed if symptoms persist. Start: 02-29-2024 End: 09-20-2024 fluconazole (DIFLUCAN) 150 m g tablet Indications: Vaginal yeast infection Take 1 tablet by mouth one time only for 1 dose. If symptoms have not improved in 72 hours may take second dose 2 tablet 09/20/2024 09/20/2024 Active Start: 01-17-2024 fluconazole (D IFLUCAN) 150 MG tablet Take 1 tablet by mouth with completion of antibiotic. May repeat in 3 days if not improved. 2 Tablet 01/17/2024 Active Start: 09-18-2023 take 1 tablet by josette th once as needed fluconazole (Diflucan) 150 MG tablet Take 1 Tablet by mouth every THIRD day as needed. 2 Tablet 11/21/2023 Active Start: 07-18-2023 fluconazole (D iflucan) 150 MG tablet Take 1 tablet by mouth every 72 hours 2 Tablet 07/18/2023 Active Start: 03-11-2023 take 1 tablet by josette th once daily Diflucan 150 mg oral tablet ; 1 tab(s) orally once a day Quantity: 1 Refills: 0 Ordered: 11-Mar-2023 Jody Melchor Start: 11-Mar-2023 Generic Substitution Allowed Comments: Do not take this drug if you are .Finish all this medication unless otherwise directed by prescriber. Start: 03-02-2023 End: 03-02-2023 take 1 tablet by mouth once daily Diflucan 150 mg oral tablet ; 1 tab(s) orally once a day Quantity: 1 Refills: 0 Ordered: 02-Mar-2023 Ronnell Nunn Start: 02-Mar-2023 End: 02-Mar-2023 Generic Substitution Allowed Comments: Do not take this drug if you are .Finish all this medication unless otherwise directed by prescriber. Start: 10-27-2022 End: 10-27-2022 take 1 tablet by mouth once fluconazole (DIFLUCAN) 150 mg tablet Indications: Antibiotic-induced yeast infection Take 1 Tablet by mouth once for 1 dose 1 Tablet 0 10/27/2022 10/27/2022 Active Start: 09-18-2022 End: 09-18-2022 take 1 tablet by mouth once fluconazole (DIFLUCAN) 150 mg tablet Take 1 Tablet by mouth once for 1 dose 1 Tablet 0 09/18/2022 09/18/2022 Active Start: 06-05-2022 End: 06-05-2022 take 1 tablet by mouth once fluconazole (DIFLUCAN) 150 mg tablet Take 1 tablet by mouth one time only for 1 dose. 1 tablet 0 06/05/2022 06/05/2022 Active Start: 08-09-2021 take 1 tablet by mouth once Di flucan 150 mg tablet take 1 tablet by oral route once 150 MG - Active Comment on above: Take 1 tablet by josette th one time only for 1 dose. Take 1 Tablet by josette th once for 1 dose Do not take this radha g if you are .Finish all this medication unless otherwise directed by prescriber. lansoprazole 30 mg delayed release oral capsule (2 sources) Proton Pump Inhibitor Start: 5 take 1 capsule by mouth once daily Lansoprazole (Prevacid) 30 mg capsule,delayed release(DR/EC) Active 30 mg PO DAILY 14 0 September 27, 2024 12:00am loratadine 10 mg oral tablet (20 sources) Start: take 1 tablet by mouth once daily Loratadine (Claritin) 10 mg tablet Active 10 mg PO DAILY 30 0 February 29, 2024 12:00am Start: 02-13-2021 End: 01-23-2023 take 1 tablet by mouth once daily Loratadine (Allergy Relief (Loratadine)) 10 mg tablet Discontinued 10 mg PO DAILY 90 3 February 13, 2021 2:50pm August 18, 2022 11:27pm Loratadine 10 MG Oral Tablet Quantity: 0 Refills: 0 Ordered: 12-Dec-2022 DO Active Comment on above: Take 1 tablet by josette th once daily. Take 1 Tablet by josette th once daily as needed for allergies (as needed for allergies) methocarbamol 500 mg oral tablet (2 sources) Muscle Relaxant Start: 11-30-19 End: 12-03-19 take 1 tablet by mouth every six hours as needed methocarbamol (ROBAXIN) 500 mg tablet Take 1 tablet by mouth every 6 hours as needed (Pain) for up to 3 days. 12 tablet 11/29/2024 12/02/2024 Active metoclopramide 10 mg oral tablet (20 sources) Dopamine-2 Receptor Antagonist Start: 06-24-19 take 1 tablet by mouth every six hours as needed for nausea metoclopramide (REGLAN) 10 MG tablet Take 1 Tablet by mouth every 6 hours as needed for Nausea. 20 Tablet 06/24/2023 Active Start: 06-24-2023 End: 06-24-2023 metoclopramide (REGLAN) 5 MG /ML injection metroNIDAZOLE 500 mg oral tablet (20 sources) Nitroimidazole Antimicrobial Start: 03-24-2024 End: 12-07-2024 take 1 tablet by mouth twice daily Metronidazole 500 mg tablet Active 500 mg PO TWICE A DAY 14 7 0 May 18, 2024 1:00am Start: 01-07-2024 take 1 tablet by josette th every twelve hours metronidazole (FLAGYL) 500 MG tablet Take 1 tablet every 12 hours by oral route for 7 days. 14 Tablet 01/07/2024 Active Start: 02-16-2023 End: 02-22-2023 take 1 tablet by mouth every twelve hours metroNIDAZOLE 500 mg oral tablet ; 1 tab(s) orally every 12 hours Quantity: 14 Refills: 0 Ordered: 16-Feb-2023 Amanda Steen Start: 16-Feb-2023 End: 22-Feb-2023 Generic Substitution Allowed Comments: Do not drink alcoholic beverages when taking this medication.Finish all this medication unless otherwise directed by prescriber.May discolor urine or feces. Start: 01-08-2023 End: 01-15-2023 take 1 tablet by mouth twice daily metroNIDAZOLE (FLAGYL) 500 mg tablet Indications: Bacterial vaginosis Take 1 Tablet by mouth 2 (two) times daily for 7 days 14 Tablet 0 01/08/2023 01/15/2023 Active Start: 01-08-2023 End: 01-20-2023 metroNIDAZOLE (METROGEL) 1 % gel Indications: Bacterial vaginosis Apply topically once daily 60 g 0 01/08/2023 01/20/2023 Discontinued (Duplicate) Start: 12-22-2022 End: 12-29-2022 take 1 tablet by mouth twice daily metroNIDAZOLE (FLAGYL) 500 mg tablet Indications: Vaginal discharge Take 1 Tablet by mouth 2 (two) times daily for 7 days 14 Tablet 0 12/22/2022 12/29/2022 Active Start: 06-28-2022 End: 07-03-2022 metroNIDAZOLE (METROGEL) 0.7 5 % (37.5mg/5 gram) Vaginal Gel Use 1 Applicatorful vaginally daily at bedtime for 5 days. 70 g 0 06/28/2022 07/03/2022 Active Start: 06-08-2022 take 500 mg by mouth every six hours Metronidazole Active 500 MG PO EVERY 6 HOURS June 08, 2022 12:00am Start: 06-05-2022 End: 06-12-2022 take 1 tablet by mouth twice daily metroNIDAZOLE (FLAGYL) 500 mg tablet Take 1 tablet by mouth twice daily for 7 days. 14 tablet 0 06/05/2022 06/12/2022 Active Start: 04-16-2022 End: 04-23-2022 take 1 tablet by mouth twice daily metroNIDAZOLE (FLAGYL) 500 mg tablet Indications: Exposure to trichomonas Take 1 tablet by mouth twice daily for 7 days. 14 tablet 0 04/16/2022 04/23/2022 Active Start: 03-24-2022 End: 03-31-2022 take 1 tablet by mouth twice daily metroNIDAZOLE (FLAGYL) 500 mg tablet Take 1 tablet by mouth twice daily for 7 days. 14 tablet 0 03/24/2022 03/31/2022 Active Start: 08-09-2021 take 1 tablet by josette th every twelve hours metronidazole 500 mg tablet take 1 tablet by oral route every 12 hours 500 MG - Active Start: 10-09-2019 End: 10-16-2019 take 1 tablet by mouth twice daily Metronidazole 500 MG tablet Discontinued 500 mg PO TWICE A DAY 14 7 0 October 09, 2019 12:00am October 15, 2019 12:00am October 16, 2019 12:02am Comment on above: Take 1 tablet by [facility] twice daily for 7 days. Use 1 Applicatorful vaginally daily at bedtime for 5 days. Take 1 Tablet by [facility] 2 (two) times daily for 7 days Apply topically once daily Do not drink alcohol ic beverages when taking this medication.Finish all this medication unless otherwise directed by prescriber.May discolor urine or feces. mupirocin 0.02 mg/mg topical ointment (20 sources) RNA Synthetase Inhibitor Antibacterial Start: 12-08-2024 End: 12-13-2024 mupirocin (BACTROBAN) 2 % ointment Apply to affected area three times a day for 5 days. 30 g 12/08/2024 12/13/2024 Active Start: 09-15-2023 apply 22 g topically three times daily mupirocin (BACTROBAN) 2 % ointment APPLY A SMALL AMOUNT TO THE AFFECTED AREA BY TOPICAL ROUTE 3 TIMES PER DAY 22 g 09/15/2023 Active Start: 08-05-2019 mupirocin (FIDELINA TROBAN) 2 % ointment Indications: Skin infection Apply 1 application to affected area three times daily. 30 g 0 08/05/2019 Active Comment on above: Apply 1 application to affected area three times daily. nitrofurantoin, macrocrystals 25 mg / nitrofurantoin, monohydrate 75 mg oral capsule (20 sources) Nitrofuran Antibacterial Start: 11-18-19 take 1 capsule by mouth every twelve hours nitrofurantoin monohydrate macrocrystal (Macrobid) 100 MG capsule Take 1 capsule every 12 hours by oral route as directed for 5 days. 10 Capsule 11/18/2023 Active Start: 01-01-2023 End: 02-25-2023 take 1 capsule by mouth twice daily nitrofurantoin, macrocrystal-monohydrate , (MACROBID) 100 mg capsule Indications: Dysuria Take 1 Capsule by mouth 2 (two) times daily 14 Capsule 0 01/01/2023 02/25/2023 Discontinued (Therapy completed/Not needed) Start: 10-22-2022 take 1 capsule by [facility] twice daily nitrofurantoin, macrocrystal-monohydrate , (MACROBID) 100 mg capsule Indications: Vaginal discomfort Take 1 Capsule by mouth 2 (two) times daily 14 Capsule 0 10/22/2022 Active Start: 08-09-2021 End: 08-13-2021 take 1 capsule by mouth every twelve hours at mealtime Macrobid 100 mg capsule take 1 capsule b y oral route every 12 hours with food 100 MG - Active Comment on above: Take 1 Capsule by mo [facility] 2 (two) times daily ondansetron 4 mg disintegrating oral tablet (5 sources) Serotonin-3 Receptor Antagonist Start: take 1 tablet by mouth every eight hours as needed for nausea Ondansetron 4 mg tablet,disintegrati ng Active 4 mg PO EVERY 8 HOURS NEEDED as needed for Nausea September 27, 2024 12:00am Start: 09-10-2023 End: 09-10-2023 ondansetron (Zofran) injecti on 4 mg Start: 06-08-2022 take 4 mg by mouth e very eight hours as needed Ondansetron Active 4 MG PO EVERY 8 HOURS NEEDED June 08, 2022 12:00am phenazopyridine hydrochloride 200 mg delayed release oral tablet (20 sources) Start: 11-18-2023 take 1 tablet by mouth three times daily phenazopyridine (Pyridium) 200 MG tablet Take 1 tablet 3 times a day by oral route as directed for 2 days. 6 Tablet 11/18/2023 Active Start: 08-09-2021 take 1 tablet by [facility] three times daily after mealtime as needed Pyridium 200 mg tablet take 1 tablet by oral route 3 times every day after meals as needed 200 MG - Active polyethylene glycol 3350 [id number] mg powder for oral solution (1 source) Osmotic Laxative Start: 08-09-2021 take 1 dose by mouth once daily Miralax 17 gram oral powder packet take 1 packet by oral route every day mixed with 8 oz. water, juice, soda, coffee or tea 17 G - Active Start: 08-09-2021 take 1 dose by mouth once alanna y Miralax 17 gram oral powder packet take 1 packet by oral route every day mixed with 8 oz. water, juice, soda, coffee or tea 17 G - Active TABS tablet (20 sources) Start: 01-27-2024 End: 01-26-2025 take 1 tablet by mouth once daily TABS tablet Take 1 Tablet by mouth daily. 30 Tablet 11 01/27/2024 01/26/2025 Active spironolactone 50 mg oral tablet (20 sources) Aldosterone Antagonist Start: 05-22-2022 End: 06-21-2022 take 1 tablet by mouth once daily spironolactone (ALDACTONE) 50 mg tablet Indications: Other acne Take 1 tablet by mouth once daily. 30 tablet 11 05/22/2022 Active Comment on above: Take 1 tablet by josette th once daily. sulfamethoxazole 800 mg / trimethoprim 160 mg oral tablet (3 sources) Dihydrofolate Reductase Inhibitor Antibacterial, Sulfonamide Antimicrobial Start: 01-20-2023 End: 01-25-2023 take 1 tablet by mouth twice daily sulfamethoxazole-tr imethoprim (BACTRIM DS) 800-160 mg per tablet Indications: Urinary pain Take 1 Tablet by mouth 2 (two) times daily for 5 days 10 Tablet 0 01/20/2023 01/25/2023 Active Comment on above: Take 1 Tablet by josette th 2 (two) times daily for 5 days traZODone hydrochloride 50 mg oral tablet (20 sources) Serotonin Reuptake Inhibitor Start: 01-20-2023 End: 04-20-2023 take 1 tablet by mouth once daily at bedtime traZODone (DESYREL) 50 mg tablet TAKE 1 TABLET BY MOUTH NIGHTLY AT BEDTIME FOR 90 DAYS 30 Tablet 2 01/20/2023 04/20/2023 Active Start: 09-18-2022 End: 12-17-2022 take 1 tablet by mouth once daily at bedtime traZODone (DESYREL) 50 mg tablet Take 1 Tablet by mouth nightly at bedtime for 90 days 30 Tablet 2 09/18/2022 Active traZODone HCl TA BS Quantity: 0 Refills: 0 Ordered: 12-Dec-2022 DO Active Comment on above: Take 1 Tablet by josette th nightly at bedtime for 90 days triamcinolone acetonide 0.001 mg/mg topical ointment (20 sources) Corticosteroid Start: 01-02-2024 triamcinolone (KENALOG) 0.1 % ointment Apply topically 2 times daily. Apply thin layer to affected area. 30 g 01/02/2024 Active Start: 01-23-2023 triamcinolone acetonide (KENALOG) 0.1 % cream Indications: Dermatographia Apply to affected area twice daily. For up to 2 weeks at a time. 45 g 3 01/23/2023 8:23 AM EDT 01/23/2023 Active Comment on above: Apply to affected ar ea twice daily. For up to 2 weeks at a time. zinc oxide 130 mg/ml topical cream (20 sources) Start: 03-18-2021 zinc oxide (DESITIN) 13 % crea Indications: Chafing Apply to affected area as needed for up to 7 days. 57 g 03/18/2021 Active Comment on above: Apply to affected ar ea as needed for up to 7 days. Completed/Discontinued Medications Medication Drug Class(es) Dates Sig (Normalized) Sig (Original) 24 hr buPROPion hydrochloride 150 mg extended release oral tablet (20 sources) Aminoketone Start: 01-16-2023 take 1 tablet by mouth once daily in the morning buPROPion XL (WELLBUTRIN XL) 150 mg 24 hr tablet Indications: Recurrent major depressive disorder, in partial remission (HCC-CMS) TAKE 1 TABLET BY MOUTH EVERY MORNING 30 Tablet 2 01/16/2023 Active Start: 09-18-2022 End: 01-08-2023 take 1 tablet by mouth once daily in the morning buPROPion XL (WELLBUTRIN XL) 150 mg 24 hr tablet Indications: Recurrent major depressive disorder, in partial remission (HCC-CMS) Take 1 Tablet by mouth every morning for 90 days 30 Tablet 2 10/10/2022 Active Comment on above: Take 1 Tablet by josette th every morning for 30 days Take 1 Tablet by josette th every morning for 90 days TAKE 1 TABLET BY JOSETTE TH EVERY MORNING calcium chloride 0.0014 meq/ml / potassium chloride 0.004 meq/ml / sodium chloride 0.103 meq/ml / sodium lactate 0.028 meq/ml injectable solution (1 source) Start: 06-24-2023 End: 06-24-2023 lactated ringers iv bolus cefTRIAXone 500 mg injection (4 sources) Cephalosporin Antibacterial Start: 08-20-2024 End: 08-20-2024 cefTRIAXone 500 mg intramuscular injection (ROCEPHIN) Start: 08-20-2024 End: 08-20-2024 inject 350 mg by intramuscular injection once 500 mg, INTRAMUSCULAR, ONCE, 1 dose, On 08/20/24 at 1300, For reconstitution of ceftriaxone for IM administration as follows: 500mg ceftriaxone vial - reconstitute with 1mL 1000mg ceftriaxone vial - reconstitute with 2.1mL Note: resulting solution in either case = 350mg/mL, Antimicrobial indication: Empiric, Infectious source(s): Other (free text), Infectious source(s): N/A - Ambulatory Start: 09-29-2023 End: 09-29-2023 cefTRIAXone 500 mg intramusc ular injection (ROCEPHIN) Start: 04-16-2022 End: 04-16-2022 cefTRIAXone 500 mg intramusc ular injection (ROCEPHIN) cholecalciferol 0.025 mg chewable tablet (10 sources) Vitamin D Start: 09-03-2022 End: 02-25-2023 VITAMIN D3 25 mcg (1,000 unit) chewable tablet Start: 08-09-2021 take 1 capsule by mo uth once daily cholecalciferol (vitamin D3) 50 mcg (2,000 unit) capsule take 1 capsule by oral route every day 1 capsule - Active DAILY-ALEC, WITH FOLIC ACID, 400 mcg tab (9 sources) Start: 12-15-2022 End: 02-25-2023 take 1 tablet by mouth once daily DAILY-ALEC, WITH FOLIC ACID, 400 mcg tab TAKE 1 TABLET BY MOUTH ONCE DAILY 30 Tablet 2 12/15/2022 02/25/2023 Discontinued (Reorder) Start: 12-15-2022 take 1 tablet by josette th once daily DAILY-ALEC, WITH FOLIC ACID, 400 mcg tab TAKE 1 TABLET BY MOUTH ONCE DAILY 30 Tablet 2 12/15/2022 Active Start: 10-14-2022 DAILY-ALEC, WI TH FOLIC ACID, 400 mcg tab Comment on above: TAKE 1 TABLET BY JOSETTE TH ONCE DAILY dicyclomine hydrochloride 10 mg oral capsule (10 sources) Anticholinergic Start: 08-24-19 dicyclomine (BENTYL) 10 mg capsule diflorasone diacetate 0.0005 mg/mg topical ointment (10 sources) Corticosteroid Start: 09-11-19 diflorasone (APEXICON) 0.05 % ointment docusate calcium 240 mg oral capsule (20 sources) Start: 10-15-19 take 1 capsule by mouth once daily docusate calcium (SURFAK) 240 mg capsule TAKE 1 CAPSULE BY MOUTH ONCE DAILY 30 Capsule 2 12/15/2022 Active Start: 09-18-2022 End: 12-17-2022 take 1 capsule by mouth once daily docusate sodium (COLACE) 250 mg capsule Take 1 Capsule by mouth 1 time each day for 90 days 30 Capsule 2 09/18/2022 12/17/2022 Active Start: 08-09-2021 take 1 capsule by mo uth once daily at bedtime as needed Colace 100 mg capsule take 1 capsule by oral route every day at bedtime as needed 100 MG - Active Comment on above: Take 1 Capsule by mo uth 1 time each day for 90 days TAKE 1 CAPSULE BY MO UTH ONCE DAILY 2 ml droperidol 2.5 mg/ml injection (1 source) Dopamine-2 Receptor Antagonist Start: 06-24-2023 End: 06-24-2023 droperidol (INAPSINE) 2.5 MG/ML injection [id number] 0.3 ml EPINEPHrine 1 mg/ml auto-injector (11 sources) alpha-Adrenergic Agonist, beta-Adrenergic Agonist, Catecholamine Start: 11-20-2022 EPINEPHrine (EPIPEN) 0.3 mg/0.3 mL pen injector Indications: Bee allergy status Inject 0.3 mL into the muscle as needed for anaphylaxis 1 Each 1 11/20/2022 Active Start: 08-09-2021 inject 0.3 mL by int ramuscular injection once as needed EpiPen 0.3 mg/0.3 mL injection, auto-injector inject 0.3 milliliter by intramuscular route once as needed for anaphylaxis 0.3 MG - Active Comment on above: Inject 0.3 mL into t he muscle as needed for anaphylaxis 2 ml famotidine 10 mg/ml injection (5 sources) Histamine-2 Receptor Antagonist Start: 06-24-2023 End: 06-24-2023 Famotidine (PF) (PEPCID) 20 MG/2ML injection Start: 03-23-2022 End: 04-22-2022 take 2 tablets by mouth at bedtime as needed famotidine (PEPCID) 20 mg tablet Indications: Dermatographism Take 2 tablets by mouth at bedtime as needed. 60 tablet 1 03/23/2022 04/22/2022 Active Comment on above: Take 2 tablets by mo uth at bedtime as needed. fluticasone propionate 0.05 mg/actuat metered dose nasal spray (20 sources) Corticosteroid Start: 08-09-19 take 2 puff(s) by inhalation twice daily Flovent HFA 44 mcg/actuation aerosol inhaler inhale 2 puff by inhalation route 2 times every day 88 MCG - Active Start: 08-09-2021 take 50 ug nasal rou te once daily as needed Flonase Allergy Relief 50 mcg/actuation nasal spray,suspension spray 1 - 2 spray by intranasal route every day in each nostril as needed 50-100 MCG - Active Start: 03-18-2021 take 2 spray(s) by m out once daily fluticasone (FLONASE) 50 mcg/actuation nasal spray Indications: Seasonal allergies Use 2 Sprays in each nostril once daily. Rinse mouth after use. 1 Each 0 03/23/2022 Active Start: 02-13-2021 End: 02-18-2021 Fluticasone Propionate 44 mcg/actuation HFA aerosol inhaler Discontinued 2 NMA INHALATION TWICE A DAY 10.6 90 2 February 13, 2021 2:11pm February 18, 2021 12:04pm Start: 02-13-2021 End: 02-13-2021 Fluticasone Propionate (Flov ent Hfa) 44 mcg/actuation HFA aerosol inhaler Discontinued NMA INHALATION February 13, 2021 12:00am February 13, 2021 2:12pm Start: 02-13-2021 End: 02-18-2021 Fluticasone Propionate Disco ntinued 2 INH INHALATION TWICE A DAY 10.6 90 February 13, 2021 2:11pm February 18, 2021 12:04pm Comment on above: Use 2 Sprays in each nostril once daily. Rinse mouth after use. 2 ml gentamicin 40 mg/ml injection (1 source) Start: 024 End: gentamicin (Garamycin) injection 240 mg hydrocortisone 10 mg/ml topical cream (9 sources) Corticosteroid Start: hydrocortisone 1 % cream Indications: Itching Apply topically 2 (two) times daily 56 g 1 12/18/2022 Active Comment on above: Apply topically 2 (t wo) times daily hydrOXYzine hydrochloride 25 mg oral tablet (20 sources) Antihistamine Start: End: take 1 tablet by mouth once daily hydrOXYzine HCL (ATARAX) 25 mg tablet Indications: Anxiety Take 1 Tablet by mouth daily. for 90 days 30 Tablet 2 10/06/2022 02/25/2023 Discontinued (Reorder) Start: 09-18-2022 End: 09-18-2022 take 1 tablet by mouth three times daily as needed for anxiety hydrOXYzine HCL (ATARAX) 25 mg tablet Indications: Anxiety Take 1 Tablet by mouth 3 (three) times daily as needed for anxiety 30 Tablet 2 09/18/2022 09/18/2022 Discontinued (Error) Start: 09-01-2022 End: 02-25-2023 hydrOXYzine pamoate (VISTARI L) 25 mg capsule hydrOXYzine HCl TABS Quantity: 0 Refills: 0 Ordered: 12-Dec-2022 DO Active Comment on above: Take 1 Tablet by josette th 3 (three) times daily as needed for anxiety Take 1 Tablet by josette th nightly at bedtime as needed for anxiety for up to 90 days Take 1 Tablet by josette th daily. for 90 days ibuprofen 600 mg oral tablet (9 sources) Nonsteroidal Anti-inflammatory Drug Start: End: take 1 tablet by mouth every six hours IBU 600 mg oral tablet ; 1 tab(s) orally every 6 hours Quantity: 20 Refills: 0 Ordered: 02-Mar-2023 Ronnell Nunn Start: 02-Mar-2023 End: 06-Mar-2023 Generic Substitution Allowed Comments: Do not take this drug if you are .It is very important that you take or use this exactly as directed. Do not skip doses or discontinue unless directed by your doctor.May cause drowsiness or dizziness.Obtain medical advice before taking any non-prescription drugs as some may affect the action of this medication.Take with food or milk. Start: 02-13-2021 End: 02-18-2021 take 1 tablet by mouth twice daily Ibuprofen 800 mg tablet Discontinued 800 mg PO TWICE A DAY February 13, 2021 12:00am February 18, 2021 12:04pm Comment on above: Do not take this radha g if you are .It is very important that you take or use this exactly as directed. Do not skip doses or discontinue unless directed by your doctor.May cause drowsiness or dizziness.Obtain medical advice before taking any non-prescription drugs as some may affect the action of this medication.Take with food or milk. Inhalational Spacing Device (1 source) Start: End: Inhalational Spacing Device 1 Device one time only for 1 dose. 1 Each 0 10/12/2023 10/12/2023 melatonin 3 mg oral tablet (20 sources) Start: End: take 1 tablet by mouth once daily at bedtime as needed for sleep melatonin 3 mg tablet Indications: Psychophysiologic insomnia TAKE 1 TABLET BY MOUTH NIGHTLY AT BEDTIME NEEDED FOR SLEEP FOR UP TO 90 DAYS 30 Tablet 2 12/15/2022 02/25/2023 Discontinued (Reorder) Melatonin TABS Q uantity: 0 Refills: 0 Ordered: 12-Dec-2022 DO Active Comment on above: Take 1 Tablet by josette th nightly at bedtime as needed for sleep for up to 90 days methylPREDNISolone (9 sources) Corticosteroid Start: 11-20-2022 End: 02-25-2023 methylPREDNISolone (MEDROL DOSPAK) 4 mg tablet pack Indications: Skin rash Take per package directions 1 Packet 0 11/20/2022 02/25/2023 Discontinued (Therapy completed/Not needed) Start: 11-20-2022 methylPREDNISo lone (MEDROL DOSPAK) 4 mg tablet pack Indications: Skin rash Take per package directions 1 Packet 0 11/20/2022 Active Comment on above: Take per package dir ections multivitamin tablet (18 sources) Start: take 1 tablet by mouth once daily multivitamin tablet Take 1 Tablet by mouth 1 time each day for 90 days 30 Tablet 2 09/18/2022 Active Start: 09-18-2022 End: 12-17-2022 take 1 tablet by mouth once daily multivitamin tablet Take 1 Tablet by mouth 1 time each day for 90 days 30 Tablet 2 09/18/2022 12/17/2022 Active Comment on above: Take 1 Tablet by josette th 1 time each day for 90 days 1000 ml sodium chloride 9 mg/ml injection (2 sources) Start: 09-10-2023 End: 09-10-2023 sodium chloride 0.9 % bolus 1,000 mL Start: 09-10-2023 sodium chlorid e (PF) 0.9% solution 3 mL valACYclovir 1000 mg oral tablet (10 sources) Herpesvirus Nucleoside Analog DNA Polymerase Inhibitor, Herpes Simplex Virus Nucleoside Analog DNA Polymerase Inhibitor, Herpes Zoster Virus Nucleoside Analog DNA Polymerase Inhibitor Start: 09-08-2022 valACYclovir (VALTR EX) 1 gram tablet Problems Active Problems Problem Classification Problem Date Documented Date Episodic/Chronic Abdominal pain (14 sources) Unspecified abdominal pain; Translations: [Abdominal pain] Onset: 1 Episodic Alcohol-related disorders (20 sources) Alcohol dependence; Translations: [Alcohol dependence, uncomplicated] Onset: 3 08-18-2022 Chronic Allergic reactions (1 source) Atopic dermatitis; Translations: [Atopic dermatitis, unspecified] 01-02-2024 Chronic Allergic reactions (11 sources) Dermatographic urticaria; Translations: [Dermatographic urticaria] Onset: 3 Episodic Anxiety disorders (14 sources) Anxiety disorder, unspecified; Translations: [Anxiety] Onset: 3 09-18-2022 Chronic Asthma (20 sources) Mild intermittent asthma; Translations: [Mild intermittent asthma, uncomplicated] Chronic Cardiac dysrhythmias (4 sources) Sinus tachycardia; Translations: [Tachycardia, unspecified] 08-18-2022 Episodic Contraceptive and procreative management (1 source) Patient encounter status; Translations: [Encounter for contraceptive management, unspecified] 12-29-2024 Episodic E Codes: Natural/environment (2 sources) Cat scratch - wound; Translations: [Scratched by cat, initial encounter] Onset: 5 12-08-2024 Episodic Genitourinary symptoms and ill-defined conditions (20 sources) Scalding pain on urination ; Translations: [Dysuria] Onset: 2 Episodic Headache; including migraine (7 sources) Generalized headache; Translations: [Generalized headache] 04-30-2020 Episodic Hemorrhage during ; abruptio placenta; placenta previa (20 sources) Hemorrhage in early , unspecified; Translations: [Unspecified hemorrhage in early , antepartum condition or complication] Onset: 4 10-27-2023 Episodic Immunizations and screening for infectious disease (15 sources) Contact with and (suspected) exposure to infections with a predominantly sexual mode of transmission; Translations: [Contact with or exposure to venereal diseases] Onset: 4 Episodic Inflammatory diseases of female pelvic organs (10 sources) Acute vaginitis; Translations: [Bacterial vaginosis] Onset: 3 01-08-2023 Episodic Menstrual disorders (2 sources) Secondary amenorrhea; Translations: [Secondary amenorrhea] 08-20-2024 Chronic Miscellaneous mental health disorders (12 sources) Psychophysiologic insomnia; Translations: [Psychophysiologic insomnia] Onset: 3 09-18-2022 Chronic Miscellaneous mental health disorders (2 sources) Schmitz; Translations: [Other symptoms and signs involving emotional state] Onset: 5 01-06-2025 Episodic Mood disorders (20 sources) Depressive disorder; Translations: [Depression with suicidal ideation] Onset: 3 05-28-2021 Chronic Mycoses (4 sources) Candidiasis, unspecified; Translations: [Opportunistic mycosis] 10-27-2022 Episodic Nausea and vomiting (11 sources) Nausea and vomiting; Translations: [Nausea with vomiting, unspecified] Onset: 3 06-16-2022 Episodic Noninfectious gastroenteritis (6 sources) Colitis; Translations: [Noninfective gastroenteritis and colitis, unspecified] 06-16-2022 Episodic Other circulatory disease (2 sources) Elevated blood pressure; Translations: [Elevated blood-pressure reading, without diagnosis of hypertension] 08-18-2022 Episodic Other circulatory disease (2 sources) Elevated blood-pressure reading, without diagnosis of hypertension; Translations: [Elevated blood pressure reading without diagnosis of hypertension] 08-18-2022 Episodic Other complications of (20 sources) Maternal obesity complicating , childbirth and the puerperium, antepartum; Translations: [Obesity complicating , first trimester] Onset: 4 01-27-2024 Chronic Other complications of (8 sources) High risk ; Translations: [Supervision of high risk , unspecified, unspecified trimester] 01-26-2024 Episodic Other complications of (1 source) Supervision of high risk , unspecified, unspecified trimester; Translations: [Supervision of high risk , unspecified, unspecified trimester] Onset: 4 Episodic Other female genital disorders (17 sources) Vaginal discharge; Translations: [Other specified noninflammatory disorders of vagina] Episodic Other female genital disorders (5 sources) Other specified noninflammatory disorders of vagina; Translations: [Vaginal odor] Onset: 3 09-18-2022 Episodic Other infections; including parasitic (1 source) Personal history of other infectious and parasitic diseases; Translations: [Personal history of other infectious and parasitic diseases] Onset: 3 Episodic Other infections; including parasitic (20 sources) Infection by Trichomonas; Translations: [Trichomoniasis, unspecified] Onset: 4 01-27-2024 Episodic Other inflammatory condition of skin (1 source) Pruritus, unspecified; Translations: [Itching ] 12-18-2022 Episodic Other nutritional; endocrine; and metabolic disorders (20 sources) Morbid obesity; Translations: [Morbid (severe) obesity due to excess calories] Onset: 2 05-22-2022 Chronic Other nutritional; endocrine; and metabolic disorders (12 sources) Body mass index 30+ - obesity; Translations: [Obesity, unspecified] 08-18-2022 Chronic Other nutritional; endocrine; and metabolic disorders (2 sources) Morbid (severe) obesity due to excess calories; Translations: [Morbid obesity] 08-18-2022 Chronic Other nutritional; endocrine; and metabolic disorders (2 sources) Obesity, unspecified; Translations: [Obesity, unspecified] 08-18-2022 Chronic Other screening for suspected conditions (not mental disorders or infectious disease) (2 sources) Encounter for test, result negative; Translations: [ test negative] Onset: 3 01-02-2024 Episodic Other skin disorders (1 source) Rash and other nonspecific skin eruption; Translations: [Eruption] 11-20-2022 Episodic Other upper respiratory disease (8 sources) Seasonal allergy; Translations: [Other seasonal allergic rhinitis] Chronic Other upper respiratory disease (7 sources) Allergic rhinitis; Translations: [Allergic rhinitis, unspecified] 04-30-2020 Chronic Other upper respiratory disease (11 sources) Other seasonal allergic rhinitis; Translations: [Seasonal allergy] Onset: 3 11-28-2022 Chronic Other upper respiratory infections (7 sources) Viral upper respiratory tract infection; Translations: [Acute upper respiratory infection, unspecified] 12-15-2018 Episodic Otitis media and related conditions (6 sources) Otitis media; Translations: [Unspecified otitis media] Onset: 3 03-02-2023 Episodic Otitis media and related conditions (2 sources) Otitis media and related conditions 03-02-2023 Comment on above: EAR INFECTION Ovarian cyst (4 sources) Unspecified ovarian cyst, unspecified side; Translations: [Hemorrhagic cyst of ovary] Onset: 1 Episodic Residual codes; unclassified (3 sources) Unprotected sexual intercourse; Translations: [High risk heterosexual behavior] Episodic Residual codes; unclassified (2 sources) At risk of sexually transmitted infection ; Translations: [Other specified personal history presenting hazards to health] Episodic Residual codes; unclassified (1 source) High risk heterosexual behavior; Translations: [High risk heterosexual behavior] Onset: 3 Episodic Residual codes; unclassified (1 source) First trimester ; Translations: [Less than 8 weeks gestation of ] 01-17-2024 Episodic Residual codes; unclassified (3 sources) H/O: miscarriage; Translations: [Personal history of other complications of , childbirth and the puerperium] 03-08-2024 Episodic Residual codes; unclassified (1 source) Procedure and treatment not carried out due to patient leaving prior to being seen by health care provider; Translations: [Procedure and treatment not carried out due to patient leaving prior to being seen by health care provider] Onset: 5 Episodic Screening and history of mental health and substance abuse codes (1 source) Encounter for screening examination for other mental health and behavioral disorders; Translations: [Patient encounter status] 11-21-2022 Episodic Spondylosis; intervertebral disc disorders; other back problems (1 source) Acute low back pain; Translations: [Acute bilateral low back pain without sciatica] 11-29-2024 Episodic Substance-related disorders (20 sources) Other psychoactive substance abuse, uncomplicated; Translations: [History of clinical finding in subject] Onset: 6 10-30-2016 Chronic Substance-related disorders (8 sources) Cannabis abuse; Translations: [Cannabis use, unspecified, uncomplicated] 08-18-2022 Episodic Unclassified (1 source) Unknown / UNK(Unknown) Onset: 8 Unclassified (8 sources) Readiness finding; Translations: [Desire for detoxification] 08-18-2022 Unclassified (2 sources) STOMACH PAIN 02-16-2023 Comment on above: STOMACH PAIN Unclassified (1 source) ANNUEL / STD CHECK 02-06-2023 Comment on above: ANNUEL / STD CHECK Unclassified (1 source) Hemorrhagic cyst of ovary 03-02-2023 Unclassified (2 sources) STD CHECK 03-11-2023 Comment on above: STD CHECK Unclassified (1 source) Acute bilateral low back pain without sciatica; Translations: [Acute bilateral low back pain without sciatica] Onset: Urinary tract infections (4 sources) Acute cystitis; Translations: [Acute cystitis without hematuria] 01-17-2024 Episodic Past or Other Problems Problem Classification Problem Date Documented Da te Episodic/Chronic Administrative/social admission (20 sources) Support system deficit; Translations: [Other specified problems related to psychosocial circumstances] Onset: 05-29-2016 06-18-2021 Episodic Nutritional deficiencies (11 sources) Vitamin deficiency, unspecified; Translations: [Vitamin deficiency] Onset: 11-28-2022 11-28-2022 Episodic Other complications of (18 sources) Late entry into care; Translations: [Supervision of with insufficient care, unspecified trimester] Onset: 05-12-2016 Resolved: 11-19-2018 06-18-2021 Episodic Other complications of (18 sources) Maternal tobacco use; Translations: [Smoking (tobacco) complicating , unspecified trimester] Onset: 05-12-2016 Resolved: 11-19-2018 06-18-2021 Episodic Other complications of (18 sources) Trichomonal vaginitis in ; Translations: [Infection of other part of genital tract in , unspecified trimester] Onset: 06-10-2016 Resolved: 11-19-2018 11-19-2018 Episodic Other ear and sense organ disorders (1 source) Unspecified disorder of ear, unspecified ear; Translations: [Unspecified disorder of ear, unspecified ear] Onset: 09-06-2024 Episodic Other female genital disorders (2 sources) Unspecified condition associated with female genital organs and menstrual cycle; Translations: [Vaginal discomfort] Onset: 06-14-2024 10-22-2022 Episodic Other female genital disorders (1 source) Noninflammatory disorder of vagina, unspecified; Translations: [Noninflammatory disorder of vagina, unspecified] Onset: 07-21-2024 Episodic Other gastrointestinal disorders (2 sources) Constipation, unspecified; Translations: [Constipation, unspecified] Onset: 06-06-2021 Episodic Other lower respiratory disease (1 source) Shortness of breath; Translations: [Shortness of breath] Onset: 04-19-2024 Episodic Other nutritional; endocrine; and metabolic disorders (20 sources) Obesity; Translations: [Obesity, unspecified] Onset: 05-29-2016 Resolved: 05-22-2022 06-18-2021 Chronic Suicide and intentional self-inflicted injury (20 sources) Suicidal thoughts; Translations: [Suicidal ideations] Onset: 05-22-2022 05-22-2022 Episodic Unclassified (2 sources) Patient encounter status 12-29-2024 Results Test Name Value Interpretation Reference Range Facility BACTERIAL CULTURE, URINEOrde red By: Amanda Banks on 01-07-2025 Bacteria identified Cx Nom (U) 50,000-<100,000 CFU/ml Normal urogenital angel [facility] Bacteria identified Cx Nom ( U)Ordered By: Amanda Banks on 01-07-2025 [facility] BACTERIAL VAGINOSIS NAATon 0 01-06-2025 Interpretation and review of laboratory results Normal [facility] Lactobacillus crispatus+gasseri+eve enii + Gardnerella vaginalis + Atopobium vaginae rRNA LILIANE+probe Ql (Vag fld) Not detected Not detected [facility] Lactobacillus crispatus+gasseri+eve enii + Gardnerella vaginalis + Atopobium vaginae rRNA LILIANE+probe Ql (Vag fld) Not detected Normal Not detected [facility] Comment on above: Order Comment: Speci men Type: SWABOrdering Facility: [facility] Address: [address] [place] [address] Performed By: #### 3 6902-5, BVAMP ####[facility] [id number] [place] [address] [place] Bacteria Ur Culton Bacteria identified Cx Nom (U) ORGANISM ID: 1 50,000-<100,000 CFU/ml Normal urogenital angel Normal [facility] Comment on above: Performed By: #### 6 30-4 #### [facility] CLIA [id number] [address] [place] [address] [place] C. trachomatis+N. gonorrhoea e DNA LILIANE+probe Ql (Unsp spec)on 01-06-2025 C. trachomatis rRNA LILIANE+probe Ql (Unsp spec) Not detected Not detected [facility] Interpretation and review of laboratory results Normal [facility] N. gonorrhoeae rRNA LILIANE+probe Ql (Unsp spec) Not detected Not detected [facility] This FDA-approved assay has been modified to accept rectal swabs self-collected in a healthcare setting. For self-collected rectal swabs, the test was developed and its performance characteristics determined by the [facility]'s [facility] Path[facility] [place] (-[facility]). It has not been cleared or approved by the FDA. -[facility] is regulated under CLIA as qualified to perform high-complexity testing. This test is used for clinical purposes. It should not be regarded as investigational or for research. [facility] C. trachomatis rRNA LILIANE+probe Ql (Unsp spec) Not detected Normal Not detected [facility] Comment on above: Order Comment: Speci men Type: SWABOrdering Facility: [facility] Address: [address] [place] [address] Performed By: #### 3 6902-5, BVAMP ####[facility]IA [id number] [place] [address] [place] N. gonorrhoeae rRNA LILIANE+probe Ql (Unsp spec) Not detected Normal Not detected [facility] Comment on above: Order Comment: Speci men Type: SWABOrdering Facility: [facility] Address: [address] [place] [address] Performed By: #### 3 6902-5, BVAMP ####[facility] [id number] [place] [address] [place] EULALIA/TRICHOMONAS NAATon 0 01-06-2025 C. glabrata RNA LILIANE+probe Ql (Vag fld) Not detected Not detected [facility] Eulalia sp DNA LILIANE+probe Ql (Vag fld) Not detected Not detected [facility] Comment on above: The Eulalia species group target includes C. albicans, C. tropicalis, C. parapsilosis, and C. dubliniensis. Interpretation and review of laboratory results Normal [facility] T. vaginalis DNA LILIANE+probe Ql (Unsp spec) Not detected Not detected [facility] C. glabrata RNA LILIANE+probe Ql (Vag fld) Not detected Normal Not detected [facility] Comment on above: Order Comment: Speci men Type: SWABOrdering Facility: [facility] Address: [address] [place] [address] Performed By: #### C VTV ####[facility] [id number] [place] [address] [place] Eulalia sp DNA LILIANE+probe Ql (Vag fld) Not detected Normal Not detected [facility] Comment on above: Order Comment: Speci men Type: SWABOrdering Facility: [facility] Address: [address] [place] [address] Result Comment: The Eulalia species group target includes C. albicans, C. tropicalis, C. parapsilosis, and C. dubliniensis. Performed By: #### C VTV ####[facility] [id number] [place] [address] [place] T. vaginalis DNA LILIANE+probe Ql (Unsp spec) Not detected Normal Not detected [facility] Comment on above: Order Comment: Speci men Type: SWABOrdering Facility: [facility] Address: [address] [place] [address] Performed By: #### C VTV ####[facility] LAB[facility]IA [id number] [place] [address] [place] CNOVon 01-06-2025 CNOV Office Visit (OBGYWM ) ANDREW MENA ([id number]) 1995 F Date Time Provider Department 01/06/25 10:50 AM ELIZABETH HAINES OBGYWKristen During your visit today, we recorded the following information about you: Blood pressure Weight 128/80 96.2 kg Elizabeth Haines MD 01/10/2025 5:28 PM Signed Performance Analyst offered: Patient declines. Andrew Mena is a 29 year old female who presents for problem visit HPI: Is having vaginal discharge and would like to be retested for BV and yeast. Recently treated for BV and yeast Also worried about PCOS and interested in having testing. Regular periods but has hair on her chin that is bothersome. Previous US does not suggest PCOS. 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 History Comments: Sexual Activity: Yes; Male Contraception: Condom PAST MEDICAL HISTORY Diagnosis Date Marijuana use Methamphetamine abuse (HCC) Substance abuse (HCC) PAST SURGICAL HISTORY Procedure Laterality Date NEXPLANON INSERTION Left 02/22/2021 PAST SURGICAL HISTORY OF wisdom teeth FAMILY HISTORY Problem Relation Age of Onset Seizures Maternal Grandmother Social History Tobacco Use Smoking status: Former Types: Cigarettes Smokeless tobacco: Never Tobacco comments: vape Vaping Use Vaping status: Never Used Substance Use Topics Alcohol use: No Drug use: Yes Current Outpatient Medications Medication Sig albuterol HFA (PROVENTIL HFA, VENTOLIN HFA) 90 mcg/actuation inhaler Inhale 2 puffs as instructed every 4 hours as needed for wheezing/shortness of breath. SYMBICORT 80-4.5 mcg/actuation inhaler Inhale 2 Puffs as instructed two times a day. buPROPion XL (WELLBUTRIN XL) 150 mg 24 hr tablet Take 1 tablet by mouth daily. Do not break tablet as it turns it from a long acting medication to a short acting medication. FEROSUL 325 mg (65 mg iron) tablet Take 1 tablet by mouth every 12 hours. ALLERGY RELIEF, LORATADINE, 10 mg tablet Take 10 mg by mouth once daily. albuterol HFA (PROVENTIL HFA, VENTOLIN HFA) 90 mcg/actuation inhaler Inhale 2 Puffs as instructed every 6 hours as needed for wheezing/shortness of breath. cetirizine (ZYRTEC) 10 mg tablet Take 1 tablet by mouth once daily. triamcinolone acetonide (KENALOG) 0.1 % cream Apply to affected area twice daily. For up to 2 weeks at a time. spironolactone (ALDACTONE) 50 mg tablet Take 1 tablet by mouth once daily. zinc oxide (DESITIN) 13 % crea Apply to affected area as needed for up to 7 days. No current facility-administered medications for this visit. Allergies As of Date: 01/06/2025 Allergen Noted Reaction PENICILLINS 08/20/2011 Rash VENOM-HONEY BEE 05/06/2018 Swelling Fully Assessed 12/20/2024 REVIEW OF SYSTEMS Abdomen: No bloating, early satiety, indigestion, or increased flatulence. No abdominal pain, nausea, vomiting, diarrhea, or constipation. Bladder: No dysuria, gross hematuria, urinary frequency, urinary urgency, or incontinence. Breast: No breast lumps, nipple d/c, overlying skin changes, redness or skin retraction. Expanded ROS: N/A Allergies and current medication updated:Yes SENSITIVE EXAM: The sensitive examination was discussed with the Patient or Patient's Authorized Dairy Equipment Mechanic. As applicable, any other physician, advance practice provider, medical student, or other health professional student that will be observing or involved in the sensitive examination for educational or training purposes was discussed with the Patient or Authorized Dairy Equipment Mechanic. The Patient or Authorized Dairy Equipment Mechanic has agreed to proceed with the sensitive examination. (Sensitive examination includes inspection and/or palpation of the breasts, pelvis, prostate and anorectal regions). EXAM: LMP 12/13/2024 GENERAL: pleasant, female in no apparent distress HEENT: Normocephalic, atraumatic, mucus membranes moist, and no lesions NECK: Supple, full range of motion, no adenopathy, and thyroid normal DERMATOLOGY: Normal, without lesions, non-icteric, and non-hirsute BREAST: deferred CHEST: Normal inspiratory effort ABDOMEN: Deferred PELVIC: external genitalia normal, normal Bartholin's glands, urethra, Kent's glands, no vulvar lesions, no cervical lesions, good vaginal support, physiologic discharge present, normal appearing perineal body and perianal region BIMANUAL: uterus normal size, shape and consistency, no adnexal masses, and non-tender NEURO: alert and oriented x3,exam grossly non-focal EXTREMITIES: normal ASSESSMENT AND PLAN: Assessment AND Plan Screen for STD (sexually transmitted disease) Vaginal discharge Dysuria Elizabeth Haines MD Allergies (more content not included)... Normal [facility] UA DIP, URINE (POC)on 2024 BILIRUBIN UA (POCT) Negative Negative [facility] CLARITY UA (POCT) Clear [facility] COLOR UA (POCT) Yellow [facility] GLUCOSE UA (POCT) Negative Negative mg/dL [facility] Hemoglobin Ql (U) Moderate Abnormal Negative [facility] Interpretation and review of laboratory results Abnormal [facility] KETONE UA (POCT) Negative Negative mg/dL [facility] LEUKOCYTES UA (POCT) Negative Negative [facility] NITRITE UA (POCT) Negative Negative [facility] PH UA (POCT) 6.5 4.5 - 8.0 [facility] Protein Ql (U) Negative Negative mg/dL [facility] SPECIFIC GRAVITY UA (POCT) 1.025 1.005 - 1.030 [facility] UROBILINOGEN UA (POCT) 0.2 Normal E.U./d L [facility] Location:[facility], [address] , [place], [place], [id number] [place] [address] POINT OF CARE [facility] CNPSalome 12-29-2024 CNPN Telephone (OBGYWM) ANDREW MENA ([id number]) 1995 F Date Time Provider Department 12/29/24 MARK SCHWARZ OBYASMINEWKristen During your visit today, we recorded the following information about you: Juliana Lo RN 12/29/2024 2:20 PM Signed Patient called asking if she can get Nexplanon inserted at her appt tomorrow instead of having her annual exam done. She has not been seen for contraception yet, but is positive that is what she wants and would like it antoine. Aware that she will need to schedule annual then for a later date. She has medicaid so referral should be approved once linked to appt. Is that okay to switch it over? Order pending if appropriate. STEFANIE Che Emily, APRN.HAROON 12/29/2024 2:47 PM Signed We can plan for that Mark Schwarz APRN.Farzaneh Last RN 12/29/2024 2:55 PM Signed Attempted to contact patient but no answer and unable to leave a message. Appointment for tomorrow was not scheduled for an annual exam its for est patient. Appointment notes say vaginal discharge and dysuria. Will not be able to address problems and do Nexplanon insertion. STEFANIE Santillan Trisha, STEFANIE 12/29/2024 3:00 PM Signed Patient is having dysuria and vaginal discharge x2 weeks. She will keep appt as problem visit tomorrow and wants to discuss control too to make sure Nexplanon is still what she wants. She is aware Nexplanon insertion and annual will both need scheduled yet then. Juliana Lo RN Allergies As of Date: 12/29/2024 Noted Allergy Reaction PENICILLINS 08/20/2011 2 - Rash VENOM-HONEY BEE 05/06/2018 7 - Swelling Date Reviewed: 12/20/2024 Reviewed by: Sarika Britt LPN - Fully Assessed Reason for Visit: Patient Question [6097] Primary Visit Diagnosis:Encounter for contraceptive management, unspecified type [Z30.9] Other Visit Diagnosis:Insertion of Nexplanon [Z30.017] Order(s):NEXPLANON INSERTION [[id number]] Order #: [id number] Prescriptions as of 12/29/2024 - albuterol HFA (PROVENTIL HFA, VENTOLIN HFA) 90 mcg/actuation inhaler Inhale 2 puffs as instructed every 4 hours as needed for wheezing/shortness of breath. - SYMBICORT 80-4.5 mcg/actuation inhaler Inhale 2 Puffs as instructed two times a day. - buPROPion XL (WELLBUTRIN XL) 150 mg 24 hr tablet Take 1 tablet by mouth daily. Do not break tablet as it turns it from a long acting medication to a short acting medication. - FEROSUL 325 mg (65 mg iron) tablet Take 1 tablet by mouth every 12 hours. - ALLERGY RELIEF, LORATADINE, 10 mg tablet Take 10 mg by mouth once daily. - albuterol HFA (PROVENTIL HFA, VENTOLIN HFA) 90 mcg/actuation inhaler Inhale 2 Puffs as instructed every 6 hours as needed for wheezing/shortness of breath. - cetirizine (ZYRTEC) 10 mg tablet Take 1 tablet by mouth once daily. - triamcinolone acetonide (KENALOG) 0.1 % cream Apply to affected area twice daily. For up to 2 weeks at a time. - spironolactone (ALDACTONE) 50 mg tablet Take 1 tablet by mouth once daily. - zinc oxide (DESITIN) 13 % crea Apply to affected area as needed for up to 7 days. Problem List As Of Date 12/29/2024 Noted Resolved Late care [O09.30] 05/12/2016 11/19/2018 Tobacco use in , antepartum [O99.330] 05/12/2016 11/19/2018 Patient requested diagnostic testing [Z01.89] 05/12/2016 10/30/2016 Support system deficit [Z65.8] 05/29/2016 History of marijuana use [F12.91] 05/29/2016 Non morbid obesity [E66.9] 05/29/2016 05/22/2022 Trichomonal vaginitis during [O23.599*06/10/2016 11/19/2018 Suicidal ideation [R45.851] 05/22/2022 Morbid obesity (HCC) [E66.01] 05/22/2022 Encounter Status:Closed by JULIANA LO on 12/29/24 Normal [facility] CBC W/Diff, Automatedon 07-0 Absolute Neut Normal 2.0-7.7 [facility] Comment on above: Result Comment: NO S PECIMENS COLLECTED. PATIENT DEPARTED ED. Performed By: #### L 100.0100, L700.6800, L500.4050 #### [facility] [address] [place], [address] HCT Normal 37-47 [facility] Comment on above: Result Comment: NO S PECIMENS COLLECTED. PATIENT DEPARTED ED. Performed By: #### L 100.0100, L700.6800, L500.4050 #### [facility] [address] [place], [address] HGB Normal 12.0-15.0 [facility] Comment on above: Result Comment: NO S PECIMENS COLLECTED. PATIENT DEPARTED ED. Performed By: #### L 100.0100, L700.6800, L500.4050 #### [facility] [address] [place], [address] MCH Normal 27.0-32.0 [facility] Comment on above: Result Comment: NO S PECIMENS COLLECTED. PATIENT DEPARTED ED. Performed By: #### L 100.0100, L700.6800, L500.4050 #### [facility] [address] [place], [address] MCHC Normal 32-36 [facility] Comment on above: Result Comment: NO S PECIMENS COLLECTED. PATIENT DEPARTED ED. Performed By: #### L 100.0100, L700.6800, L500.4050 #### [facility] [address] [place], [address] MCV Normal 81-99 [facility] Comment on above: Result Comment: NO S PECIMENS COLLECTED. PATIENT DEPARTED ED. Performed By: #### L 100.0100, L700.6800, L500.4050 #### [facility] [address] [place], [address] NEUT% Normal 47-70 [facility] Comment on above: Result Comment: NO S PECIMENS COLLECTED. PATIENT DEPARTED ED. Performed By: #### L 100.0100, L700.6800, L500.4050 #### [facility] [address] [place], [address] PLT Normal 150-450 [facility] Comment on above: Result Comment: NO S PECIMENS COLLECTED. PATIENT DEPARTED ED. Performed By: #### L 100.0100, L700.6800, L500.4050 #### [facility] [address] [place], [address] RBC Normal 4.2-5.4 [facility] Comment on above: Result Comment: NO S PECIMENS COLLECTED. PATIENT DEPARTED ED. Performed By: #### L 100.0100, L700.6800, L500.4050 #### [facility] [address] [place], [address] RDW CV Normal 11.6-14.6 [facility] Comment on above: Result Comment: NO S PECIMENS COLLECTED. PATIENT DEPARTED ED. Performed By: #### L 100.0100, L700.6800, L500.4050 #### [facility] [address] [place], [address] RDW SD Normal 35.1-43.9 [facility] Comment on above: Result Comment: NO S PECIMENS COLLECTED. PATIENT DEPARTED ED. Performed By: #### L 100.0100, L700.6800, L500.4050 #### [facility] [address] [place], [address] WBC Normal 4.4-11.0 [facility] Comment on above: Result Comment: NO S PECIMENS COLLECTED. PATIENT DEPARTED ED. Performed By: #### L 100.0100, L700.6800, L500.4050 #### [facility] [address] [place], [address] Comprehensive Metabolic Prof ilon 12-26-2024 ALB Normal 3.5-5.0 [facility] Comment on above: Result Comment: NO S PECIMENS COLLECTED. PATIENT DEPARTED ED. Performed By: #### L 100.0100, L700.6800, L500.4050 #### [facility] [address] [place], [address] ALK PHOS Normal 35-104 [facility] Comment on above: Result Comment: NO S PECIMENS COLLECTED. PATIENT DEPARTED ED. Performed By: #### L 100.0100, L700.6800, L500.4050 #### [facility] [address] [place], [address] ALT Normal <=34 [facility] Comment on above: Result Comment: NO S PECIMENS COLLECTED. PATIENT DEPARTED ED. Performed By: #### L 100.0100, L700.6800, L500.4050 #### [facility] [address] [place], [address] AST Normal <=31 [facility] Comment on above: Result Comment: NO S PECIMENS COLLECTED. PATIENT DEPARTED ED. Performed By: #### L 100.0100, L700.6800, L500.4050 #### [facility] [address] [place], [address] BUN Normal 4-19 [facility] Comment on above: Result Comment: NO S PECIMENS COLLECTED. PATIENT DEPARTED ED. Performed By: #### L 100.0100, L700.6800, L500.4050 #### [facility] [address] [place], [address] BUN/CRE Normal 10-20 [facility] Comment on above: Result Comment: NO S PECIMENS COLLECTED. PATIENT DEPARTED ED. Performed By: #### L 100.0100, L700.6800, L500.4050 #### [facility] [address] [place], [address] Calcium Normal 7.6-11.0 [facility] Comment on above: Result Comment: NO S PECIMENS COLLECTED. PATIENT DEPARTED ED. Performed By: #### L 100.0100, L700.6800, L500.4050 #### [facility] [address] [place], [address] CL Normal 98-108 [facility] Comment on above: Result Comment: NO S PECIMENS COLLECTED. PATIENT DEPARTED ED. Performed By: #### L 100.0100, L700.6800, L500.4050 #### [facility] [address] [place], [address] CO2 Normal 21.0-32.0 [facility] Comment on above: Result Comment: NO S PECIMENS COLLECTED. PATIENT DEPARTED ED. Performed By: #### L 100.0100, L700.6800, L500.4050 #### [facility] [address] [place], [address] CREAT,SERUM Normal 0.70-1.20 [facility] Comment on above: Result Comment: NO S PECIMENS COLLECTED. PATIENT DEPARTED ED. Performed By: #### L 100.0100, L700.6800, L500.4050 #### [facility] [address] [place], [address] eGFR Normal >60 [facility] Comment on above: Result Comment: NO S PECIMENS COLLECTED. PATIENT DEPARTED ED. Performed By: #### L 100.0100, L700.6800, L500.4050 #### [facility] [address] [place], [address] GAP Normal 5-15 [facility] Comment on above: Result Comment: NO S PECIMENS COLLECTED. PATIENT DEPARTED ED. Performed By: #### L 100.0100, L700.6800, L500.4050 #### [facility] [address] [place], [address] GLU Normal 70-99 [facility] Comment on above: Result Comment: NO S PECIMENS COLLECTED. PATIENT DEPARTED ED. Performed By: #### L 100.0100, L700.6800, L500.4050 #### [facility] [address] [place], [address] Potassium Normal 3.3-5.1 [facility] Comment on above: Result Comment: NO S PECIMENS COLLECTED. PATIENT DEPARTED ED. Performed By: #### L 100.0100, L700.6800, L500.4050 #### [facility] [address] [place], [address] T BILI Normal 0.00-1.30 [facility] Comment on above: Result Comment: NO S PECIMENS COLLECTED. PATIENT DEPARTED ED. Performed By: #### L 100.0100, L700.6800, L500.4050 #### [facility] [address] [place], [address] T PROT Normal 5.9-8.4 [facility] Comment on above: Result Comment: NO S PECIMENS COLLECTED. PATIENT DEPARTED ED. Performed By: #### L 100.0100, L700.6800, L500.4050 #### [facility] [address] [place], [address] Comprehensive Metabolic Profil Normal 133-145 [facility] Comment on above: Result Comment: NO S PECIMENS COLLECTED. PATIENT DEPARTED ED. Performed By: #### L 100.0100, L700.6800, L500.4050 #### [facility] [address] [place], [address] ,Serum,hCG Quali.on 12-26-2024 HCG, SERUM QUAL Normal [facility] Comment on above: Result Comment: NO S PECIMENS COLLECTED. PATIENT DEPARTED ED. Performed By: #### L 100.0100, L700.6800, L500.4050 #### [facility] [address] [place], [address] INTERNAL QC [place]? Normal [facility] Comment on above: Result Comment: NO S PECIMENS COLLECTED. PATIENT DEPARTED ED. Performed By: #### L 100.0100, L700.6800, L500.4050 #### [facility] [address] [place], [address] RECORD KIT LOT# Normal [facility] Comment on above: Result Comment: NO S PECIMENS COLLECTED. PATIENT DEPARTED ED. Performed By: #### L 100.0100, L700.6800, L500.4050 #### [facility] [address] [place], [address] BACTERIAL VAGINOSIS NAATon 0 12-20-2024 Lactobacillus crispatus+gasseri+eve enii + Gardnerella vaginalis + Atopobium vaginae rRNA LILIANE+probe Ql (Vag fld) Not detected Normal Not detected [facility] Comment on above: Order Comment: Speci men Type: SWABOrdering Facility: [facility] Address: [address] [place] [address] [place] [address] Performed By: #### 6 30-4 #### [facility] CLIA [id number] [address] [place] [address] [place] C. trachomatis+N. gonorrhoea e DNA LILIANE+probe Ql (Unsp spec)on 12-20-2024 C. trachomatis rRNA LILIANE+probe Ql (Unsp spec) Not detected Normal Not detected [facility] Comment on above: Order Comment: Speci men Type: SWABOrdering Facility: [facility] Address: [address] [place] [address] Performed By: #### 6 30-4 #### [facility] CLIA [id number] [address] [place] [address] [place] N. gonorrhoeae rRNA LILIANE+probe Ql (Unsp spec) Not detected Normal Not detected [facility] Comment on above: Order Comment: Speci men Type: SWABOrdering Facility: [facility] Address: [address] [place] [address] Performed By: #### 6 30-4 #### [facility] CLIA [id number] [address] [place] [address] [place] EULALIA/TRICHOMONAS NAATon 0 12-20-2024 C. glabrata RNA LILIANE+probe Ql (Vag fld) Detected Abnormal Not detected [facility] Comment on above: Order Comment: Speci men Type: SWABOrdering Facility: [facility] Address: [address] [place] [address] Performed By: #### C VTV ####[facility] [id number] [place] [address] [place] Eulalia sp DNA LILIANE+probe Ql (Vag fld) Not detected Normal Not detected [facility] Comment on above: Order Comment: Speci men Type: SWABOrdering Facility: [facility] Address: [address] [place] [address] Result Comment: The Eulalia species group target includes C. albicans, C. tropicalis, C. parapsilosis, and C. dubliniensis. Performed By: #### C VTV ####[facility] [id number] [address] [facility] T. vaginalis DNA LILIANE+probe Ql (Unsp spec) Not detected Normal Not detected [facility] Comment on above: Order Comment: Speci men Type: SWABOrdering Facility: [facility] Address: [address] [place] [address] Performed By: #### C VTV ####[facility] [id number] [address] OF [facility] CNOVon 12-20-2024 CNOV Office Visit (UCTR ) ANDREW MENA ([id number]) 1995 F Date Time Provider Department 12/20/24 1:30 PM NATHANIEL MORALES [facility] During your visit today, we recorded the following information about you: Temperature Pulse Respiration Blood pressure 98.1 degrees 118/minute 18/minute 117/74 Weight Last Period 97 kg 12/13/24 Nathaniel Morales, PA 12/20/2024 1:48 PM Signed [facility] Subjective Andrew Mena is a 29 year old female. Patient presents with: Abdominal Pain: Lower pelvic cramping x 4 days, states she is having some soreness in her breasts, HPI Vaginal Discharge and Dysuria: - Recent onset of vaginal discharge and dysuria. - Recent menses ended; experiencing post-menstrual cramping. - Noted burning sensation at night. - Recent treatment for a yeast infection; uncertain if it resolved completely. - Has a assistant engineer but has not been seen recently; plans to schedule an appointment. - Patient has been seen in [facility] 3 times in the past month for similar symptoms. Seen 11/29, positive for BV and yeast. Treated accordingly. Seen again 12/08, yeast came back positive. Patient did complete treatment for this. PAST MEDICAL HISTORY Diagnosis Date Marijuana use Methamphetamine abuse (HCC) Substance abuse (HCC) PAST SURGICAL HISTORY Procedure Laterality Date NEXPLANON INSERTION Left 02/22/2021 PAST SURGICAL HISTORY OF wisdom teeth ALLERGIES Penicillins and Venom-Honey Bee MEDICATIONS SYMBICORT 80-4.5 mcg/actuation inhaler Inhale 2 Puffs as instructed two times a day. buPROPion XL (WELLBUTRIN XL) 150 mg 24 hr tablet Take 1 tablet by mouth daily. Do not break tablet as it turns it from a long acting medication to a short acting medication. FEROSUL 325 mg (65 mg iron) tablet Take 1 tablet by mouth every 12 hours. ALLERGY RELIEF, LORATADINE, 10 mg tablet Take 10 mg by mouth once daily. albuterol HFA (PROVENTIL HFA, VENTOLIN HFA) 90 mcg/actuation inhaler Inhale 2 Puffs as instructed every 6 hours as needed for wheezing/shortness of breath. cetirizine (ZYRTEC) 10 mg tablet Take 1 tablet by mouth once daily. triamcinolone acetonide (KENALOG) 0.1 % cream Apply to affected area twice daily. For up to 2 weeks at a time. spironolactone (ALDACTONE) 50 mg tablet Take 1 tablet by mouth once daily. albuterol HFA (PROVENTIL HFA, VENTOLIN HFA) 90 mcg/actuation inhaler Inhale 2 puffs as instructed every 4 hours as needed for wheezing/shortness of breath. zinc oxide (DESITIN) 13 % crea Apply to affected area as needed for up to 7 days. FAMILY HISTORY Problem Relation Age of Onset Seizures Maternal Grandmother Social History Tobacco Use Smoking status: Former Types: Cigarettes Smokeless tobacco: Never Tobacco comments: vape Vaping Use Vaping status: Never Used Substance Use Topics Alcohol use: No Drug use: Yes Review of Systems Breast: (+) breast pain Gastrointestinal: (+) abdominal pain Genitourinary: (+) pelvic cramping, (+) vaginal burning Objective BP 117/74 Pulse 118 Temp 36.7 ?C (98.1 ?F) Resp 18 Wt 97 kg (213 lb 13.5 oz) LMP 12/13/2024 (Approximate) SpO2 97% BMI 35.63 kg/m? Physical Exam Vitals reviewed. Constitutional: General: She is not in acute distress. Appearance: Normal appearance. She is not toxic-appearing. HENT: Mouth/Throat: Mouth: Mucous membranes are moist. Cardiovascular: Rate and Rhythm: Normal rate and regular rhythm. Pulmonary: Effort: Pulmonary effort is normal. Breath sounds: Normal breath sounds. Abdominal: General: Abdomen is flat. Palpations: Abdomen is soft. Tenderness: There is abdominal tenderness (Mild lower abdominal tenderness). There is no right CVA tenderness, left CVA tenderness, guarding or rebound. Skin: General: Skin is warm and dry. Neurological: Mental Status: She is alert. General: No acute distress. Abd: Mild tenderness to palpation in the upper and lower abdomen. : No tenderness to palpation in the suprapubic region. {1. Dysuria (R30.0) 2. Vaginal discharge (N89.8) - Patient has been seen in [facility] 3 times in the past month for similar symptoms. Seen 11/29, positive for BV and yeast. Treated accordingly. Seen again 12/08, yeast came back positive. Patient did complete treatment for this. - Presents again today for vaginal discharge and dysuria. Swabs obtained. Awaiting results. - Urinalysis negative for infection; test negative. - Scheduled appointment with gynecology in one week for further evaluation. - Will notify patient of swab results within 1-2 days. Recording using GTRAN software for draft documentation of the visit was discussed with the patient/authorized auto claim representative; all questions welcomed and answered. Patient/authorized auto claim representative agreed to proceed History and Record Review Externa (more content not included)... Normal [facility] UA DIP, URINE (POC)on 2024 BILIRUBIN UA (POCT) Negative Negative [facility] CLARITY UA (POCT) Turbid [facility] COLOR UA (POCT) Yellow [facility] GLUCOSE UA (POCT) Negative Negative mg/dL [facility] Hemoglobin Ql (U) Negative Negative [facility] KETONE UA (POCT) Negative Negative mg/dL [facility] LEUKOCYTES UA (POCT) Negative Negative [facility] NITRITE UA (POCT) Negative Negative [facility] PH UA (POCT) 6.5 4.5 - 8.0 [facility] Protein Ql (U) Negative Negative mg/dL [facility] SPECIFIC GRAVITY UA (POCT) 1.02 1.005 - 1.030 [facility] UROBILINOGEN UA (POCT) 0.2 Normal E.U./d L [facility] Location:[facility], [address] [facility], [place], [address] [facility] POINT OF CARE [facility] UA DIP,URINE HCG (POC)on Beta HCG ( test) Ql (U) Negative Negative [facility] Comment on above: Location:[facility], [address] [facility], [place], [address] Quality Control Industrial Engineer (POCT) Internal QC [place] [facility] Location:[facility], [facility] [facility], [place], [address] [facility] POINT OF CARE [facility] BACTERIAL VAGINOSIS NAATon 0 12-08-2024 Lactobacillus crispatus+gasseri+eve enii + Gardnerella vaginalis + Atopobium vaginae rRNA LILIANE+probe Ql (Vag fld) Not detected Normal Not detected [facility] Comment on above: Order Comment: Speci men Type: SWABOrdering Facility: [facility] Address: [address] [place] [address] Performed By: #### 3 6902-5, BVAMP ####[facility] [id number] [place] [address] [place] C. trachomatis+N. gonorrhoea e DNA LILIANE+probe Ql (Unsp spec)on 12-08-2024 C. trachomatis rRNA LILIANE+probe Ql (Unsp spec) Not detected Normal Not detected [facility] Comment on above: Order Comment: Speci men Type: SWABOrdering Facility: [facility] Address: [address] [place] [address] Performed By: #### 3 6902-5, BVAMP ####[facility] [id number] [place] [address] [place] N. gonorrhoeae rRNA LILIANE+probe Ql (Unsp spec) Not detected Normal Not detected [facility] Comment on above: Order Comment: Speci men Type: SWABOrdering Facility: [facility] Address: [address] [place] [address] Performed By: #### 3 6902-5, BVAMP ####[facility] [id number] [place] [address] [place] EULALIA/TRICHOMONAS NAATon 0 12-08-2024 C. glabrata RNA LILIANE+probe Ql (Vag fld) Detected Abnormal Not detected [facility] Comment on above: Order Comment: Speci men Type: SWABOrdering Facility: [facility] Address: [address] [place] [address] Performed By: #### 6 30-4 #### [facility] CLIA [id number] [address] [place] [address] [place] Eulalia sp DNA LILIANE+probe Ql (Vag fld) Not detected Normal Not detected [facility] Comment on above: Order Comment: Speci men Type: SWABOrdering Facility: [facility] Address: [address] [place] [address] Result Comment: The Eulalia species group target includes C. albicans, C. tropicalis, C. parapsilosis, and C. dubliniensis. Performed By: #### 6 30-4 #### [facility] CLIA [id number] [address] [place] [address] [place] T. vaginalis DNA LILIANE+probe Ql (Unsp spec) Not detected Normal Not detected [facility] Comment on above: Order Comment: Speci men Type: SWABOrdering Facility: [facility] Address: [address] [place] [address] Performed By: #### 6 30-4 #### [facility] CLIA [id number] [address] [place] [address] [place] CNOVon 12-08-2024 CNOV Office Visit (UCWSTR ) ANDREW MENA ([id number]) 1995 F Date Time Provider Department 12/08/24 12:30 PM [facility] During your visit today, we recorded the following information about you: Temperature Pulse Respiration Blood pressure 98.3 degrees 86/minute 18/minute 121/83 Weight 96.5 kg Valentin Leahy, FOSTER.[employer]GAR SAMPLER 12/08/2024 1:42 PM Signed Subjective HPI Nontoxic-appearing female presents urgent care chief complaint cat scratch on chin. Duration of symptoms 24 hours. States was scratched yesterday evening. Presents today for evaluation. OTC medications none. No bleeding. Tetanus greater than 5 years. Denies any Bites. Additionally has had vaginal discharge. Was seen here 9 days ago. Presents today for testing and STD testing. Concerned about possible STDs due to vaginal discharge. Past medical history prescription medications allergies reviewed .Patient presents with: Animal Bite: Cat scratch on chin x last night PAST MEDICAL HISTORY Diagnosis Date Marijuana use Methamphetamine abuse (HCC) Substance abuse ([facility]) PAST SURGICAL HISTORY Procedure Laterality Date NEXPLANON INSERTION Left 02/22/2021 PAST SURGICAL HISTORY OF wisdom teeth ALLERGIES Penicillins and Venom-Honey Bee MEDICATIONS SYMBICORT 80-4.5 mcg/actuation inhaler Inhale 2 Puffs as instructed two times a day. buPROPion XL (WELLBUTRIN XL) 150 mg 24 hr tablet Take 1 tablet by mouth daily. Do not break tablet as it turns it from a long acting medication to a short acting medication. FEROSUL 325 mg (65 mg iron) tablet Take 1 tablet by mouth every 12 hours. ALLERGY RELIEF, LORATADINE, 10 mg tablet Take 10 mg by mouth once daily. albuterol HFA (PROVENTIL HFA, VENTOLIN HFA) 90 mcg/actuation inhaler Inhale 2 Puffs as instructed every 6 hours as needed for wheezing/shortness of breath. cetirizine (ZYRTEC) 10 mg tablet Take 1 tablet by mouth once daily. triamcinolone acetonide (KENALOG) 0.1 % cream Apply to affected area twice daily. For up to 2 weeks at a time. spironolactone (ALDACTONE) 50 mg tablet Take 1 tablet by mouth once daily. zinc oxide (DESITIN) 13 % crea Apply to affected area as needed for up to 7 days. FAMILY HISTORY Problem Relation Age of Onset Seizures Maternal Grandmother Social History Tobacco Use Smoking status: Former Types: Cigarettes Smokeless tobacco: Never Tobacco comments: vape Vaping Use Vaping status: Never Used Substance Use Topics Alcohol use: No Drug use: Yes BP 121/83 Pulse 86 Temp 36.8 ?C (98.3 ?F) Resp 18 Wt 96.5 kg (212 lb 11.9 oz) LMP 11/23/2024 SpO2 100% BMI 35.44 kg/m? Review of Systems Constitutional: Negative for chills, fever and malaise/fatigue. HENT: Negative for congestion, ear discharge, ear pain, sinus pain and sore throat. Eyes: Negative for blurred vision, pain, discharge and redness. Respiratory: Negative for cough, hemoptysis, sputum production, shortness of breath, wheezing and stridor. Cardiovascular: Negative for chest pain. Gastrointestinal: Negative for abdominal pain, constipation, diarrhea, nausea and vomiting. Genitourinary: Negative for dysuria, flank pain, frequency, hematuria and urgency. Vaginal discharge Musculoskeletal: Negative for myalgias. Skin: Negative for itching and rash. Superficial cat scratch noted Neurological: Negative for dizziness and headaches. Objective Physical Exam Constitutional: General: She is not in acute distress. Appearance: She is not diaphoretic. HENT: Head: Normocephalic. Jaw: No trismus, tenderness, swelling or pain on movement. Mouth/Throat: Mouth: Mucous membranes are moist. Pharynx: Oropharynx is clear. Uvula midline. No pharyngeal swelling, oropharyngeal exudate, posterior oropharyngeal erythema or uvula swelling. Eyes: Conjunctiva/sclera: Conjunctivae normal. Pupils: Pupils are equal, round, and reactive to light. Cardiovascular: Rate and Rhythm: Normal rate and regular rhythm. Heart sounds: Normal heart sounds. Pulmonary: Effort: Pulmonary effort is normal. No tachypnea, accessory muscle usage or respiratory distress. Breath sounds: Normal breath sounds. No stridor. No wheezing, rhonchi or rales. Abdominal: General: There is no distension. Palpations: Abdomen is soft. Tenderness: There is no abdominal tenderness. There is no guarding or rebound. Genitourinary: Comments: Vaginal self swab Musculoskeletal: Cervical back: Normal range of motion and neck supple. No edema, erythema, rigidity or tenderness. No pain with movement. Normal range of motion. Lymphadenopathy: Cervical: No cervical adenopathy. Skin: General: Skin is warm and dry. Comments: Superficial scabbed scratch noted highlighted area. No evidence of infection Neurological: Mental Status: She is alert and oriented to person, place, and (more content not included)... Normal [facility] UA DIP,URINE HCG (POC)on Beta HCG ( test) Ql (U) Negative Negative [facility] Comment on above: Location:[address], [place], [address] Quality Control Industrial Engineer (POCT) Internal QC OK [facility] Location:[address], [place], [place], [address] [place] [address] POINT OF CARE [facility] BACTERIAL VAGINOSIS NAATon 0 11-29-2024 Lactobacillus crispatus+gasseri+eve enii + Gardnerella vaginalis + Atopobium vaginae rRNA LILIANE+probe Ql (Vag fld) Detected Abnormal Not detected [facility] Comment on above: Order Comment: Speci men Type: SWABOrdering Facility: [facility] Address: [address] [place] [address] Performed By: #### 6 30-4 #### [facility] CLIA [id number] [address] [place] [address] [place] Bacteria Ur Culton 5 Bacteria identified Cx Nom (U) ORGANISM ID: 1 <10,000 CFU/ml Normal urogenital angel Normal [facility] Comment on above: Performed By: #### 6 30-4 #### [facility] CLIA [id number] [address] [place] [address] [place] C. trachomatis+N. gonorrhoea e DNA LILIANE+probe Ql (Unsp spec)on 11-29-2024 C. trachomatis rRNA LILIANE+probe Ql (Unsp spec) Not detected Normal Not detected [facility] Comment on above: Order Comment: Speci men Type: SWABOrdering Facility: [facility] Address: [address] [place] [address] Performed By: #### 6 30-4 #### [facility] CLIA [id number] [address] [place] [address] [place] N. gonorrhoeae rRNA LILIANE+probe Ql (Unsp spec) Not detected Normal Not detected [facility] Comment on above: Order Comment: Speci men Type: SWABOrdering Facility: [facility] Address: [address] [place] [address] Performed By: #### 6 30-4 #### [facility] CLIA [id number] [address] [place] [address] [place] EULALIA/TRICHOMONAS NAATon 0 11-29-2024 C. glabrata RNA LILIANE+probe Ql (Vag fld) Detected Abnormal Not detected [facility] Comment on above: Order Comment: Speci men Type: SWABOrdering Facility: [facility] Address: [address] [place] [address] Performed By: #### C VTV ####[facility] [id number] [place] [address] [place] Eulalia sp DNA LILIANE+probe Ql (Vag fld) Not detected Normal Not detected [facility] Comment on above: Order Comment: Speci men Type: SWABOrdering Facility: [facility] Address: [address] [place] [address] Result Comment: The Eulalia species group target includes C. albicans, C. tropicalis, C. parapsilosis, and C. dubliniensis. Performed By: #### C VTV ####[facility] [id number] [place] [address] [place] T. vaginalis DNA LILIANE+probe Ql (Unsp spec) Not detected Normal Not detected [facility] Comment on above: Order Comment: Speci men Type: SWABOrdering Facility: [facility] Address: [address] [place] [address] Performed By: #### C VTV ####[facility] CHELSEY [id number] [place] [place] CNOVon 11-29-2024 CNOV Office Visit (UCWSTR ) ANDREW MENA ([id number]) 1995 F Date Time Provider Department 11/29/24 9:30 AM NATHANIEL MORALES [facility] During your visit today, we recorded the following information about you: Temperature Pulse Respiration Blood pressure 97.6 degrees 97/minute 18/minute 112/90 Weight Last Period 96 kg 11/23/24 Nathaniel Morales PA 11/29/2024 9:35 AM Signed [facility] Subjective Andrew Mena is a 29 year old female. Patient presents with: Vaginal Problem: States burning, lower back pain and wants STD testing HPI 29-year-old female presents for multiple complaints. Patient states that she has been having low back pain for the past couple of days. Pain worse with movement. No fall or injury. No numbness or tingling in the legs. No loss of bowel or bladder function. No fevers. Patient would also like STD testing and have her urine tested for UTI. She has a little bit of burning with urination. No vaginal discharge. No rash. No pelvic pain. No blood in the urine. No vomiting or fevers. She was seen here a few months ago and treated for yeast infection which she states all of those symptoms resolved. No concern for , LMP was 1 week ago. No other complaint PAST MEDICAL HISTORY Diagnosis Date Marijuana use Methamphetamine abuse (HCC) Substance abuse (HCC) PAST SURGICAL HISTORY Procedure Laterality Date NEXPLANON INSERTION Left 02/22/2021 PAST SURGICAL HISTORY OF wisdom teeth ALLERGIES Penicillins and Venom-Honey Bee MEDICATIONS SYMBICORT 80-4.5 mcg/actuation inhaler Inhale 2 Puffs as instructed two times a day. buPROPion XL (WELLBUTRIN XL) 150 mg 24 hr tablet Take 1 tablet by mouth daily. Do not break tablet as it turns it from a long acting medication to a short acting medication. FEROSUL 325 mg (65 mg iron) tablet Take 1 tablet by mouth every 12 hours. ALLERGY RELIEF, LORATADINE, 10 mg tablet Take 10 mg by mouth once daily. albuterol HFA (PROVENTIL HFA, VENTOLIN HFA) 90 mcg/actuation inhaler Inhale 2 Puffs as instructed every 6 hours as needed for wheezing/shortness of breath. cetirizine (ZYRTEC) 10 mg tablet Take 1 tablet by mouth once daily. triamcinolone acetonide (KENALOG) 0.1 % cream Apply to affected area twice daily. For up to 2 weeks at a time. spironolactone (ALDACTONE) 50 mg tablet Take 1 tablet by mouth once daily. zinc oxide (DESITIN) 13 % crea Apply to affected area as needed for up to 7 days. FAMILY HISTORY Problem Relation Age of Onset Seizures Maternal Grandmother Social History Tobacco Use Smoking status: Former Types: Cigarettes Smokeless tobacco: Never Tobacco comments: vape Vaping Use Vaping status: Never Used Substance Use Topics Alcohol use: No Drug use: Yes Review of Systems Constitutional: Negative for chills and fever. Gastrointestinal: Negative for abdominal pain, diarrhea and vomiting. Genitourinary: Positive for dysuria, frequency and urgency. Negative for vaginal discharge. Musculoskeletal: Positive for back pain. Objective BP 112/90 Pulse 97 Temp 36.4 ?C (97.6 ?F) Resp 18 Wt 96 kg (211 lb 10.3 oz) LMP 11/23/2024 SpO2 97% BMI 35.26 kg/m? Physical Exam Vitals and nursing note reviewed. Constitutional: General: She is not in acute distress. Appearance: Normal appearance. She is not toxic-appearing. HENT: Mouth/Throat: Mouth: Mucous membranes are moist. Cardiovascular: Rate and Rhythm: Normal rate and regular rhythm. Pulmonary: Effort: Pulmonary effort is normal. Breath sounds: Normal breath sounds. Abdominal: General: Abdomen is flat. Palpations: Abdomen is soft. Tenderness: There is no abdominal tenderness. There is no right CVA tenderness, left CVA tenderness, guarding or rebound. Genitourinary: Comments: Deferred by patient Musculoskeletal: Lumbar back: Spasms and tenderness present. No bony tenderness. Normal range of motion. Negative right straight leg raise test and negative left straight leg raise test. Comments: Tenderness over lumbar paraspinal muscles with spasm present. No midline tenderness. No bony step-off or deformity. Negative seated straight leg raise. Skin: General: Skin is warm and dry. Neurological: Mental Status: She is alert. {ASSESSMENT/PLAN: ASSESSMENT/PLAN: 1. Screening for STD (sexually transmitted disease) - ICD9: V74.5, ICD10: Z11.3 (primary diagnosis) - GONORRHEA/CHLAMYDIA NAAT - EULALIA/TRICHOMONAS NAAT - BACTERIAL VAGINOSIS NAAT - Patient deferred exam, self swab 2. Burning with urination - ICD9: 788.1, ICD10: R30.0 Acute -UA negative will send for culture - Send urine for culture - Patient education for prevention given - UA DIP, URINE (POC) - BACTERIAL CULTURE, URINE - EULALIA/TRICHOMONAS NAAT - BACTERIAL VAGINOSIS NAAT 3. Acute bilateral low back pain without sciatica - ICD9: (more content not included)... Normal [facility] UA DIP, URINE (POC)on 2024 BILIRUBIN UA (POCT) Negative Negative [facility] CLARITY UA (POCT) Clear [facility] COLOR UA (POCT) Dark yellow [facility] GLUCOSE UA (POCT) Negative Negative mg/dL [facility] Hemoglobin Ql (U) Negative Negative [facility] KETONE UA (POCT) Negative Negative mg/dL [facility] LEUKOCYTES UA (POCT) Negative Negative [facility] NITRITE UA (POCT) Negative Negative [facility] PH UA (POCT) 7 4.5 - 8.0 [facility] Protein Ql (U) Negative Negative mg/dL [facility] SPECIFIC GRAVITY UA (POCT) 1.02 1.005 - 1.030 [facility] UROBILINOGEN UA (POCT) 0.2 Normal E.U./d L [facility] Location:[address], [place], [place], [id number] [place] [address] POINT OF [facility] Abdomen/Pelvis without Conto n 09-27-2024 Abdomen/Pelvis without Cont [facility] [address] [place], [place] [id number] Abdomen/Pelvis without Cont MR#: [id number] Acct: [id number] Name: ANDREW MENA Rep #: [id number] : 1995 F 29 From: Pete Shelton MD PCP: Stephany Bae DO Status: REG ER Study: Abdomen/Pelvis without Cont Date of Exam: 02/13 Exam# [id number] Ordering Dr: Allan Rodriguez DO PROCEDURE: ABDOMEN/PELVIS WITHOUT CONT 09/27/2024 REASON FOR EXAM: PAIN TECHNIQUE: Abdomen and pelvis CT without intravenous contrast. Noncontrast technique limits evaluation of the abdominal and pelvic viscera. Coronal and Sagittal reformats were provided. One or more dose reduction techniques were used (e.g., Automated exposure control, adjustment of the mA and/or kV according to patient size, use of iterative reconstruction technique). PATIENT PREPARATION: Per protocol ORAL CONTRAST TYPE: None. AMOUNT: mL COMPARISON: None RADIATION DOSE SUMMARY: CTDlvol: 19.12 mGy DLP: 1050.99 mGycm One or more dose reduction techniques were used (e.g., Automated exposure control, adjustment of the mA and/or kV according to patient size, use of iterative reconstruction technique). FINDINGS: Note that evaluation of the abdominopelvic viscera, vasculature, and remaining soft tissues is limited in the absence of IV contrast. Lung bases: Atelectasis/scarring.. Liver: Unremarkable. Spleen: Unremarkable. Gallbladder: Faint high-density layering possible sludge versus noncalcified stones. Pancreas: Unremarkable. Adrenals: Punctate high-density but noncalcified focus at the RIGHT upper pole, too small to characterize, statistically likely a hemorrhagic or proteinaceous cyst. Kidneys: Unremarkable. Bowel: Unremarkable. Normal caliber appendix. Lymph nodes: Unremarkable. Vasculature: Unremarkable. Peritoneum: Unremarkable. Bladder: Underdistended and suboptimally evaluated, grossly unremarkable. Reproductive Organs: Unremarkable. Body Wall: Unremarkable. Bones: Unremarkable. CT/Abdomen/Pelvis without Cont IMPRESSION: 1. No acute noncontrast findings. 2. Additional description as above. Reading Location: [id number] CC: Dr. 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 Normal [facility] Absolute lymphocyte countOrd ered By: Allan Rodriguez on 09-27-2024 Lymphocytes Auto (Unsp spec) [#/Vol] 2.12 10*3/uL 0.83-4.51 [facility] Absolute neutrophil countOrd ered By: Allan Rodriguez on 09-27-2024 Neutrophils (Bld) [#/Vol] 6.8 10*3/uL 2.0-7.7 [facility] Anion gap in Serum or Plasma Ordered By: Allan Rodriguez on 09-27-2024 Anion gap [Moles/Vol] 12 mmol/L 5-15 [facility] Automated lymphocyte count a s percentage of total leukocytesOrdered By: Allan Rodriguez on 09-27-2024 Lymphocytes/100 WBC Auto (Unsp spec) 21.6 % 19-41 [facility] BUN/creatinine ratioOrdered By: Allan Rodriguez on 09-27-2024 Urea nitrogen/Creatinine [Mass ratio] 18.0 mg/mg 10-20 [facility] Basophil percentageOrdered B y: Allan Rodriguez on 09-27-2024 Basophils/100 WBC (Bld) 0.5 % 0-1 [facility] Beta HCG ( test) Ql Ordered By: Allan Rodriguez on 09-27-2024 Serum Test, Qualitative Negative [facility] Bilirubin Test strip Ql (U)O rdered By: Allan Rodriguez on 09-27-2024 Bilirubin Ql (U) Negative Negative [facility] Bilirubin, totalOrdered By: Allan Rodriguez on 09-27-2024 Bilirubin [Mass/Vol] 0.24 mg/dL 0.00-1.30 [facility] CBC W/Diff, Automatedon Absolute Lymph 2.12 X10 3/uL Normal 0.83-4.51 [facility] Comment on above: Performed By: #### L 100.0100, L700.6800, L500.4050 #### [facility] [address] [place], [address] Absolute Neut 6.8 X10 3/uL Normal 2.0-7.7 [facility] Comment on above: Performed By: #### L 100.0100, L700.6800, L500.4050 #### [facility] [address] [place], [address] Basophils/100 WBC (Bld) 0.5 % Normal 0-1 [facility] Comment on above: Performed By: #### L 100.0100, L700.6800, L500.4050 #### [facility] [address] [place], [address] Eosinophils/100 WBC (Bld) 2.3 % Normal 0-5 [facility] Comment on above: Performed By: #### L 100.0100, L700.6800, L500.4050 #### [facility] [address] [place], [address] Erythrocyte distribution width (RBC) [Ratio] 13.4 % Normal 11.6-14.6 [facility] Comment on above: Performed By: #### L 100.0100, L700.6800, L500.4050 #### [facility] [address] [place], [address] Hematocrit (Bld) [Volume fraction] 40.9 % Normal 37-47 [facility] Comment on above: Performed By: #### L 100.0100, L700.6800, L500.4050 #### [facility] [address] [place], [address] Hemoglobin (Bld) [Mass/Vol] 13.4 g/dL Normal 12.0-15.0 [facility] Comment on above: Performed By: #### L 100.0100, L700.6800, L500.4050 #### [facility] [address] [place], [address] IG% 0.500 Normal 0.0-0.9 [facility] Comment on above: Result Comment: IG% - Immature Granulocytes (promyelocytes, myelocytes and metamyelocytes) > 1% indicates that a LEFT SHIFT is Present. Performed By: #### L 100.0100, L700.6800, L500.4050 #### [facility] [address] [place], [address] Lymphocytes/100 WBC (Bld) 21.6 % Normal 19-41 [facility] Comment on above: Performed By: #### L 100.0100, L700.6800, L500.4050 #### [facility] [address] [place], [address] MCH (RBC) [Entitic mass] 29.3 pg Normal 27.0-32.0 [facility] Comment on above: Performed By: #### L 100.0100, L700.6800, L500.4050 #### [facility] [address] [place], [address] MCHC (RBC) [Mass/Vol] 32.8 g/dL Normal 32-36 [facility] Comment on above: Performed By: #### L 100.0100, L700.6800, L500.4050 #### [facility] [address] [place], [address] MCV (RBC) [Entitic vol] 89.5 fL Normal 81-99 [facility] Comment on above: Performed By: #### L 100.0100, L700.6800, L500.4050 #### [facility] [address] [place], [address] Monocytes/100 WBC (Bld) 6.2 % Normal 0-10 [facility] Comment on above: Performed By: #### L 100.0100, L700.6800, L500.4050 #### [facility] [address] [place], [address] Neutrophils/100 WBC (Bld) 68.9 % Normal 47-70 [facility] Comment on above: Performed By: #### L 100.0100, L700.6800, L500.4050 #### [facility] [address] [place], [address] Nucleated RBC (Bld) [#/Vol] 0 10*3/uL Normal 0-5 [facility] Comment on above: Performed By: #### L 100.0100, L700.6800, L500.4050 #### [facility] [address] [place], [address] Platelet mean volume (Bld) [Entitic vol] 10.1 fL Normal 6.2-12.0 [facility] Comment on above: Performed By: #### L 100.0100, L700.6800, L500.4050 #### [facility] [address] [place], [address] Platelets (Bld) [#/Vol] 298 10*3/uL Normal 150-450 [facility] Comment on above: Performed By: #### L 100.0100, L700.6800, L500.4050 #### [facility] [address] [place], [address] RBC (Bld) [#/Vol] 4.57 10*6/uL Normal 4.2-5.4 [facility] Comment on above: Performed By: #### L 100.0100, L700.6800, L500.4050 #### [facility] [address] [place], [address] RDW SD 43.9 fl Normal 35.1-43.9 [facility] Comment on above: Performed By: #### L 100.0100, L700.6800, L500.4050 #### [facility] [address] [place], [address] WBC (Bld) [#/Vol] 9.8 10*3/uL Normal 4.4-11.0 [facility] Comment on above: Performed By: #### L 100.0100, L700.6800, L500.4050 #### [facility] [address] [place], [address] Carbon dioxide, total [Moles /volume] in Central venous bloodOrdered By: Allan Rodriguez on 09-27-2024 CO2 [Moles/Vol] 21.4 mmol/L 21.0-32.0 [facility] Chloride assayOrdered By: Susanna Rodriguez on 09-27-2024 Chloride [Moles/Vol] 106 mmol/L 98-108 [facility] Comprehensive Metabolic Prof ilon 09-27-2024 Albumin [Mass/Vol] 4.2 g/dL Normal 3.5-5.0 [facility] Comment on above: Performed By: #### L 100.0100, L700.6800, L500.4050 #### [facility] [address] [place], [address] Albumin/Globulin [Mass ratio] 1.7 {ratio} Normal 0.9-2.4 [facility] Comment on above: Performed By: #### L 100.0100, L700.6800, L500.4050 #### [facility] [address] [place], [address] ALK PHOS 66 U/L Normal 35-104 [facility] Comment on above: Performed By: #### L 100.0100, L700.6800, L500.4050 #### [facility] [address] [place], [address] ALT [Catalytic activity/Vol] 23 U/L Normal <=34 [facility] Comment on above: Performed By: #### L 100.0100, L700.6800, L500.4050 #### [facility] [address] [place], [address] AST [Catalytic activity/Vol] 24 U/L Normal <=31 [facility] Comment on above: Performed By: #### L 100.0100, L700.6800, L500.4050 #### [facility] [address] [place], [address] Bilirubin [Mass/Vol] 0.24 mg/dL Normal 0.00-1.30 [facility] Comment on above: Performed By: #### L 100.0100, L700.6800, L500.4050 #### [facility] [address] [place], [address] BUN/CRE 18.0 RATIO Normal 10-20 [facility] Comment on above: Performed By: #### L 100.0100, L700.6800, L500.4050 #### [facility] [address] [place], [address] Calcium [Mass/Vol] 9.1 mg/dL Normal 7.6-11.0 [facility] Comment on above: Performed By: #### L 100.0100, L700.6800, L500.4050 #### [facility] [address] [place], [address] Chloride [Moles/Vol] 106 mmol/L Normal 98-108 [facility] Comment on above: Performed By: #### L 100.0100, L700.6800, L500.4050 #### [facility] [address] [place], [address] CO2 [Moles/Vol] 21.4 mmol/L Normal 21.0-32.0 [facility] Comment on above: Performed By: #### L 100.0100, L700.6800, L500.4050 #### [facility] [address] [place], [address] Creatinine [Mass/Vol] 0.62 mg/dL Low 0.70-1.20 [facility] Comment on above: Performed By: #### L 100.0100, L700.6800, L500.4050 #### [facility] [address] [place], [address] ECRCL 152.86 ml/min Normal 50-250 [facility] Comment on above: Performed By: #### L 100.0100, L700.6800, L500.4050 #### [facility] [address] [place], [address] GAP 12 Normal 5-15 [facility] Comment on above: Performed By: #### L 100.0100, L700.6800, L500.4050 #### [facility] [address] [place], [address] GFR/1.73 sq M.predicted among non-blacks MDRD (S/P/Bld) [Vol rate/Area] 123 mL/min/{1.73_m2} Normal >60 [facility] Comment on above: Result Comment: mL/m in/1.73m2 CKD-EPI Creatinine Equation (2020) Performed By: #### L 100.0100, L700.6800, L500.4050 #### [facility] [address] [place], [address] Globulin (S) [Mass/Vol] 2.5 g/dL Normal 2.2-4.2 [facility] Comment on above: Performed By: #### L 100.0100, L700.6800, L500.4050 #### [facility] [address] [place], [address] Glucose [Mass/Vol] 92 mg/dL Normal 70-99 [facility] Comment on above: Performed By: #### L 100.0100, L700.6800, L500.4050 #### [facility] [address] [place], [address] Potassium [Moles/Vol] 3.7 mmol/L Normal 3.3-5.1 [facility] Comment on above: Performed By: #### L 100.0100, L700.6800, L500.4050 #### [facility] [address] [place], [address] Sodium [Moles/Vol] 139 mmol/L Normal 133-145 [facility] Comment on above: Performed By: #### L 100.0100, L700.6800, L500.4050 #### [facility] [address] [place], [address] T PROT 6.7 g/dL Normal 5.9-8.4 [facility] Comment on above: Performed By: #### L 100.0100, L700.6800, L500.4050 #### [facility] [address] [place], [address] Urea nitrogen [Mass/Vol] 11 mg/dL Normal 4-19 [facility] Comment on above: Performed By: #### L 100.0100, L700.6800, L500.4050 #### [facility] [address] [place], [address] Emergency Department Summary on 09-27-2024 Emergency Department Summary [facility] Medical Records Department [address] [place] [address] Emergency Department Summary 09/27/24 MR#: [id number] Acct: [id number] Name: ANDREW MENA Rep #: [id number] : 1995 29 From: Allan Rodriguez DO PCP: Stephany Bae DO Status:DEP ER Location: ED HPI HPI - GI History of Present Illness Chief Complaint: Abd Pain Detail of Chief Complaint: Abdominal pain Informant: patient Narrative Narrative: Patient presents with abdominal pain started about a week ago. She describes nausea and vomit in the morning and then she is nauseated throughout the day. Today she did not finish her breakfast which is unusual. She denies fever although she has woken up at times with some sweats. She describes some mild dysuria. She has had intermittent episodes of some watery stool. She has had no prior abdominal surgeries. Currently finishing her menstrual period. She does not think she is . [facility] Medical History Alcohol withdrawal Obesity (BMI 30-39.9) Vaginal discharge Seasonal allergies Asthma Home Medications ???Medication ???Instructions ???Recorded ???Last Taken ???Type albuterol sulfate 90 mcg/actuation 1 inh inhalation Q6H PRN shortne ss 02/13/21 08/11/22 Rx aerosol inhaler of breath or wheezing #8.5 grams loratadine 10 mg tablet (Allergy 10 mg PO DAILY Check with primary 08/18/22 08/18/22 History Relief (loratadine)) doctor albuterol sulfate 90 mcg/actuation 1 - 2 puff inhalation Q4H PRN KS N 02/29/24 Unknown Rx aerosol inhaler (Ventolin HFA) Wheezing ##1 cephalexin 500 mg capsule 500 mg PO Q12 #14 CAPSULES 4 Unknown Rx fluconazole 150 mg tablet 150 mg PO X1 PRN yeast 1 dose #2 0 02/29/24 Unknown Rx tabs loratadine 10 mg tablet (Claritin) 10 mg PO DAILY #30 tabs 02/29/24 Unknown Rx albuterol sulfate 90 mcg/actuation 1 - 2 puff inhalation Q4H PRN KS N 03/24/24 Unknown Rx aerosol inhaler (Ventolin HFA) Wheezing ##1 fluconazole 150 mg tablet 150 mg PO Q3D 2 doses #2 tabs 100 09/12 Unknown Rx metronidazole 500 mg tablet 500 mg PO BID 7 days #14 tabs 1009/12 Unknown Rx fluconazole 150 mg tablet 150 mg PO Q3D 2 doses #2 tabs 11/2 01/12 Unknown Rx metronidazole 500 mg tablet 500 mg PO BID 7 days #14 tabs 04/23 01/12 Unknown Rx azithromycin 250 mg tablet 250 mg PO DAILY 4 days #4 tabs 03/16 Unknown Rx (Zithromax) bisacodyl 10 mg rectal suppository 10 mg KS DAILY PRN constipation 09/27/24 Unknown Rx (OneLAX Bisacodyl) #12 ea lansoprazole 30 mg capsule,delayed 30 mg PO DAILY #14 caps 09/27/24 Unknown Rx release (Prevacid) ondansetron 4 mg disintegrating 4 mg PO Q8H PRN PRN Nausea #10 tab s 09/27/24 Unknown Rx tablet Allergy/AdvReac Type Severity Reaction Status Date / Time penicillin G Allergy Mild Hives Verified 09/27/24 09:12 venom-honey bee (bee venom Allergy Swelling Verified 09/27/24 09:12 (honey bee)) Family History Grandmother Asthma Arthritis Surgical History History of wisdom tooth extraction Social History Smoking Status: Current some day smoker tobacco type: cigarettes alcohol intake: never substance use type: does not use what type of physical activity do you participate in: walking frequency: 5-6 times per week ROS ROS ED Review of Systems ROS Unobtainable: other Constitutional Constitutional ED: Reports lethargy; Denies chills, fever(s), sweats or weight loss Eyes Eyes: Denies blurry vision, change in vision or diplopia ENT ENT ED: Denies rhinorrhea or sore throat Cardiovascular Cardiovascular: Denies chest pain, orthopnea or racing heartbeat Respiratory/Chest Respiratory/Chest: Denies cough, dyspnea, dyspnea on exertion, orthopnea or sputum Gastrointestinal Gastrointestinal: Reports abdominal pain, diarrhea, nausea and vomiting Genitourinary Genitourinary ED: Denies dysuria, hematuria or urinary frequency Musculoskeletal Musculoskeletal: Denies arthralgias, back pain, myalgias or neck pain Integumentary Denies abscess, Abrasions or rash Neurologic Neurologic: Denies headache(s) or weakness Psychiatric Psychiatric: Denies anxiety, depression or suicidal thoughts Endocrine Endocrinology: Denies polydipsia, polyphagia or polyuria Hematologic/Lymphatic Hematologic/Lymphatic: Denies easy bleeding, easy bruising or lymphadenopathy Allergic/Immunologic Allergic/Immunologic ED: Denies mouth swelling, tongue swelling or urticaria EXAM Physical Exam Const Vital Signs: 09/27/24 09:11 09/27/24 11:11 Temperature 96.1 F L Temperature Source Temporal Pulse Rate 103 (more content not included)... Normal [facility] Eosinophil percentageOrdered By: Allan Rodriguez on 09-27-2024 Eosinophils/100 WBC (Bld) 2.3 % 0-5 [facility] Epithelial cells.squamous LM Ql (Urine sed)Ordered By: Allan Rodriguez on 09-27-2024 Epithelial cells.squamous LM.HPF (Urine sed) [#/Area] 5 /[HPF] 5-10 [facility] Erythrocyte distribution wid th (RBC) [Ratio]Ordered By: Allan Rodriguez on 09-27-2024 Erythrocyte distribution width (RBC) [Entitic vol] 43.9 fL 35.1-43.9 [facility] Erythrocyte distribution wid th ratioOrdered By: Allan Rodriguez on 09-27-2024 Erythrocyte distribution width (RBC) [Ratio] 13.4 % 11.6-14.6 [facility] Erythrocyte distribution wid th standard deviationOrdered By: Allan Rodriguez on 09-27-2024 Erythrocyte distribution width (RBC) [Ratio] 43.9 fl 35.1-43.9 [facility] Estimation of creatinine stacy aranceOrdered By: Allan Rodriguez on 09-27-2024 Estimated Creatinine Clearance Calc 152.86 ml/min 50-250 [facility] GFR/1.73 sq M.predicted cameron g non-blacks MDRD (S/P/Bld) [Vol rate/Area]Ordered By: Allan Rodriguez on 09-27-2024 Estimated GFR (MDRD) Non-Af Amer 123 >60 [facility] Comment on above: mL/min/1.73m2 CKD-EP I Creatinine Equation (2020) Glomerular filtration rate ( GFR) estimation/1.73 sq m using serum, plasma, or whole bOrdered By: Allan Rodriguez on 09-27-2024 GFR/1.73 sq M.predicted among non-blacks MDRD (S/P/Bld) [Vol rate/Area] 123 mL/min/{1.73_m2} >60 [facility] Comment on above: mL/min/1.73m2 CKD-EP I Creatinine Equation (2020) Glucose Ql (U)Ordered By: Susanna Rodriguez on 09-27-2024 Urine Glucose (UA) Normal mg/dl Normal [facility] Hematocrit Auto (Bld) [Volum e fraction]Ordered By: Allan Rodriguez on 09-27-2024 Hematocrit (Bld) [Volume fraction] 40.9 % 37-47 [facility] Hemoglobin measurementOrdere d By: Allan Rodriguez on 09-27-2024 Hemoglobin (Bld) [Mass/Vol] 13.4 g/dL 12.0-15.0 [facility] Immature granulocytes/100 WB C Auto (Bld)Ordered By: Allan Rodriguez on 09-27-2024 Immature granulocytes/100 WBC (Bld) 0.500 % 0.0-0.9 [facility] Comment on above: IG% - Immature Granu locytes (promyelocytes, myelocytes and metamyelocytes) > 1% indicates that a LEFT SHIFT is Present. Ketones Test strip Ql (U)Ord ered By: Allan Rodriguez on 09-27-2024 Ketones Ql (U) Negative Negative [facility] Laboratory - Chemistry and C hemistry - challengeOrdered By: Allan Rodriguez on 09-27-2024 AST [Catalytic activity/Vol] 24 U/L <32 [facility] Lymphocytes Auto (Unsp spec) [#/Vol]Ordered By: Allan Rodriguez on 09-27-2024 Lymphocytes (Bld) [#/Vol] 2.12 10*3/uL 0.83-4.51 [facility] Lymphocytes/100 WBC Auto (Un sp spec)Ordered By: Allan Rodriguez on 09-27-2024 Lymphocytes/100 WBC (Bld) 21.6 % 19-41 [facility] MCV (mean corpuscular volume ) determinationOrdered By: Allan Rodriguez on 09-27-2024 MCV (RBC) [Entitic vol] 89.5 fL 81-99 [facility] Mean corpuscular hemoglobin (MCH) determinationOrdered By: Allan Rodriguez on 09-27-2024 MCH (RBC) [Entitic mass] 29.3 pg 27.0-32.0 [facility] Mean corpuscular hemoglobin concentration (MCHC) determinationOrdered By: Allan Rodriguez on 09-27-2024 MCHC (RBC) [Mass/Vol] 32.8 g/dL 32-36 [facility] Mean platelet volume determi nationOrdered By: Allan Rodriguez on 09-27-2024 Platelet mean volume (Bld) [Entitic vol] 10.1 fL 6.2-12.0 [facility] Microscopic analysis of urin e for red blood cells (RBC)Ordered By: Allan Rodriguez on 09-27-2024 Microscopic analysis of urine for red blood cells (RBC) 0-5 SEEN /hpf 0-5 [facility] Urine RBC 0-5 SEEN /hpf 0-5 [facility] Monocyte percentageOrdered B y: Allan Rodriguez on 09-27-2024 Monocytes/100 WBC (Bld) 6.2 % 0-10 [facility] Mucus LM Ql (Urine sed)Order ed By: Allan Rodriguez on 09-27-2024 Mucus Ql (Urine sed) 0 SEEN /hpf [facility] Neutrophil percentageOrdered By: Allan Rodriguez on 09-27-2024 Neutrophils/100 WBC (Bld) 68.9 % 47-70 [facility] Nitrite Test strip Ql (U)Ord ered By: Allan Rodriguez on 09-27-2024 Nitrite Ql (U) Negative Negative [facility] Nucleated red blood cell per centageOrdered By: Allan Rodriguez on 09-27-2024 Nucleated RBC/100 WBC (Bld) [Ratio] 0 % 0-5 [facility] Platelet countOrdered By: Susanna Rodriguez on 09-27-2024 Platelets (Bld) [#/Vol] 298 10*3/uL 150-450 [facility] Potassium (Unsp spec) [Mass/ Vol]Ordered By: Allan Rodriguez on 09-27-2024 Potassium [Moles/Vol] 3.7 mmol/L 3.3-5.1 [facility] Potassium measurement (mass/ volume)Ordered By: Allan Rodriguez on 09-27-2024 Potassium (Unsp spec) [Mass/Vol] 3.7 mmol/L 3.3-5.1 [facility] ,Serum,hCG Quali.on 09-27-2024 HCG, SERUM QUAL Negative Normal [facility] Comment on above: Performed By: #### L 100.0100, L700.6800, L500.4050 #### [facility] [address] [place], [place], [id number] Protein Test strip Ql (U)Ord ered By: Allan Rodriguez on 09-27-2024 Protein Ql (U) Negative Negative [facility] RBC Auto (Bld) [#/Vol]Ordere d By: Allan Rodriguez on 09-27-2024 RBC (Bld) [#/Vol] 4.57 10*6/uL 4.2-5.4 [facility] Serum beta-hCG test, qualita tiveOrdered By: Allan Rodriguez on 09-27-2024 Beta HCG ( test) Ql Negative [facility] Serum creatinine measurement (mass/volume)Ordered By: Allan Rodriguez on 09-27-2024 Creatinine [Mass/Vol] 0.62 mg/dL Low 0.70-1.20 [facility] Serum globulin measurementOr dered By: Allan Rodriguez on 09-27-2024 Globulin (S) [Mass/Vol] 2.5 g/dL 2.2-4.2 [facility] Serum glucose measurement (m ass/volume)Ordered By: Allan Rodriguez on 09-27-2024 Glucose [Mass/Vol] 92 mg/dL 70-99 [facility] Serum or plasma alanine ramon otransferase (ALT) measurementOrdered By: Allan Rodriguez on 09-27-2024 ALT [Catalytic activity/Vol] 23 U/L <35 [facility] Serum or plasma albumin alix urement (mass/volume)Ordered By: Allan Rodriguez on 09-27-2024 Albumin [Mass/Vol] 4.2 g/dL 3.5-5.0 [facility] Serum or plasma albumin/glob ulin mass ratioOrdered By: Allan Rodriguez on 09-27-2024 Albumin/Globulin [Mass ratio] 1.7 {ratio} 0.9-2.4 [facility] Serum or plasma alkaline trupti sphatase measurementOrdered By: Allan Coronazenobia on 09-27-2024 ALP [Catalytic activity/Vol] 66 U/L 35-104 [facility] Serum or plasma calcium alix urement (mass/volume)Ordered By: Remus Coronazenobia on 09-27-2024 Calcium [Mass/Vol] 9.1 mg/dL 7.6-11.0 [facility] Serum or plasma urea nitroge n measurement (mass/volume)Ordered By: Remus Coronazenobia on 09-27-2024 Urea nitrogen [Mass/Vol] 11 mg/dL 4-19 [facility] Sodium levelOrdered By: Dilma downs Jennifer on 09-27-2024 Sodium [Moles/Vol] 139 mmol/L 133-145 [facility] Squamous epithelial cells de tection in urine sediment by light microscopyOrdered By: Allan Coronazenobia on 09-27-2024 Epithelial cells.squamous LM Ql (Urine sed) 5-10 SEEN /hpf 5-10 [facility] Total proteinOrdered By: Kelsy Coronazenobia on 09-27-2024 Protein [Mass/Vol] 6.7 g/dL 5.9-8.4 [facility] Urinalysis, Completeon 09-27 BACTERIA 1+ /hpf Normal None Seen [facility] Comment on above: Order Comment: CLEAN CATCH Performed By: #### L 400.0001 #### [facility] [address] [place], [place], [id number] EPI,SQUAMOUS 5-10 SEEN Normal 5-10 [facility] Comment on above: Order Comment: CLEAN CATCH Performed By: #### L 400.0001 #### [facility] [address] [place], [place], [id number] RBC 0-5 SEEN Normal 0-5 [facility] Comment on above: Order Comment: CLEAN CATCH Performed By: #### L 400.0001 #### [facility] [address] [place], [address] WBC 0-5 SEEN Normal 0-5 [facility] Comment on above: Order Comment: CLEAN CATCH Performed By: #### L 400.0001 #### [facility] [address] [place], [place], [address] Mucus Ql (Urine sed) 0 SEEN Normal [facility] Comment on above: Order Comment: CLEAN CATCH Performed By: #### L 400.0001 #### [facility] [address] [place], [place], [id number] Urine blood detectionOrdered By: Remus Jennifer on 09-27-2024 Urine Occult Blood 150 /ul High Negative [facility] Urine clarityOrdered By: Rem us Jennifer on 09-27-2024 Clarity (U) Clear Clear [facility] Urine color determinationOrd ered By: Allan Rodriguez on 09-27-2024 Color (U) Yellow Yellow [facility] Urine glucose detectionOrder ed By: Allan Rodriguez on 09-27-2024 Glucose Ql (U) Normal mg/dl Normal [facility] Urine leukocyte esterase det ection by dipstickOrdered By: Remus Rodriguez on 09-27-2024 Leukocyte esterase Test strip Ql (U) Negative Negative [facility] Urine pHOrdered By: Allan Penn gur on 09-27-2024 pH (U) 6.0 [pH] 5.0 - 8.0 [facility] Urine sediment bacteria coun t by microscopy (number/high power field)Ordered By: Allan Rodriguez on 09-27-2024 Bacteria LM.HPF (Urine sed) [#/Area] 1 /[HPF] None Seen [facility] Urine specific gravity measu rementOrdered By: Remus Jennifer on 09-27-2024 Specific gravity (U) [Rel density] 1.015 1.002-1.030 [facility] Urine urobilinogen measureme ntOrdered By: Remus Jennifer on 09-27-2024 Urobilinogen Ql (U) Normal mg/dl Normal [facility] Urobilinogen Ql (U)Ordered B y: Remus Ungzenobia on 09-27-2024 Urine Urobilinogen Normal mg/dl Normal [facility] White blood cell (WBC) count Ordered By: Remus Jennifer on 09-27-2024 WBC (Bld) [#/Vol] 9.8 10*3/uL 4.4-11.0 [facility] White blood cell countOrdere d By: Allan Rodriguez on 09-27-2024 Urine WBC 0-5 SEEN /hpf 0-5 [facility] White blood cell count 0-5 SEEN /hpf 0-5 [facility] BACTERIAL VAGINOSIS NAATon 0 09-19-2024 Lactobacillus crispatus+gasseri+eve enii + Gardnerella vaginalis + Atopobium vaginae rRNA LILIANE+probe Ql (Vag fld) Not detected Normal Not detected [facility] Comment on above: Order Comment: Speci men Type: SWABOrdering Facility: [facility] Address: [address] [place] [address] Performed By: #### 6 30-4 #### [facility] CLIA [id number] [address] [place] [address] [place] C. trachomatis+N. gonorrhoea e DNA LILIANE+probe Ql (Unsp spec)on 09-19-2024 C. trachomatis rRNA LILIANE+probe Ql (Unsp spec) Not detected Normal Not detected [facility] Comment on above: Order Comment: Speci men Type: SWABOrdering Facility: [facility] Address: [address] [place] [address] Performed By: #### 6 30-4 #### [facility] CLIA [id number] [address] [place] [address] [place] N. gonorrhoeae rRNA LILIANE+probe Ql (Unsp spec) Not detected Normal Not detected [facility] Comment on above: Order Comment: Speci men Type: SWABOrdering Facility: [facility] Address: [address] [place] [address] Performed By: #### 6 30-4 #### [facility] CLIA [id number] [address] [place] [address] [place] EULALIA/TRICHOMONAS NAATon 0 09-19-2024 C. glabrata RNA LILIANE+probe Ql (Vag fld) Detected Abnormal Not detected [facility] Comment on above: Order Comment: Speci men Type: SWABOrdering Facility: [facility] Address: [address] [place] [address] Performed By: #### C VTV ####[facility] [id number] [address] [place] Eulalia sp DNA LILIANE+probe Ql (Vag fld) Detected Abnormal Not detected [facility] Comment on above: Order Comment: Speci men Type: SWABOrdering Facility: [facility] Address: [address] [place] [address] Result Comment: The Eulalia species group target includes C. albicans, C. tropicalis, C. parapsilosis, and C. dubliniensis. Performed By: #### C VTV ####[facility] [id number] [address] [place] T. vaginalis DNA LILIANE+probe Ql (Unsp spec) Not detected Normal Not detected [facility] Comment on above: Order Comment: Speci men Type: SWABOrdering Facility: [facility] Address: [address] [place] [address] Performed By: #### C VTV ####[facility] [id number] [place] [address] [place] CNOVon 09-19-2024 CNOV Office Visit ([facility] ) ANDREW MENA ([id number]) 1995 F Date Time Provider Department 09/19/24 9:45 AM NATHANIEL MORALES [facility] During your visit today, we recorded the following information about you: Temperature Pulse Respiration Blood pressure 98.3 degrees 118/minute 18/minute 122/80 Weight 100.5 kg Nathaniel Morales PA 09/19/2024 10:10 AM Signed [facility] Subjective Andrew Mena is a 29 year old female. Patient presents with: Vaginal Discharge: discharge, std check and hcg test HPI 29-year-old female presents for vaginal discharge. She would like an STD check and a test. Patient states she has had vaginal discharge for the past week or so. It is yellow. She states she slept with her partner who did test positive for chlamydia and gonorrhea. She states that he was treated for this. She was also seen here earlier this month and treated for chlamydia/gonorrhea. Her test results were all negative. Patient states that she had intercourse with this partner again and would like retested. She states she has some yellow vaginal discharge. No itching. No abdominal pain, fevers, vomiting, blood in the urine. No dysuria. She is unsure of when her LMP was. She states she does not keep track. She would like a test as well. PAST MEDICAL HISTORY Diagnosis Date Marijuana use Methamphetamine abuse (HCC) Substance abuse ([facility]) PAST SURGICAL HISTORY Procedure Laterality Date NEXPLANON INSERTION Left 02/22/2021 PAST SURGICAL HISTORY OF wisdom teeth ALLERGIES Penicillins and Venom-Honey Bee MEDICATIONS SYMBICORT 80-4.5 mcg/actuation inhaler Inhale 2 Puffs as instructed two times a day. buPROPion XL (WELLBUTRIN XL) 150 mg 24 hr tablet Take 1 tablet by mouth daily. Do not break tablet as it turns it from a long acting medication to a short acting medication. FEROSUL 325 mg (65 mg iron) tablet Take 1 tablet by mouth every 12 hours. ALLERGY RELIEF, LORATADINE, 10 mg tablet Take 10 mg by mouth once daily. albuterol HFA (PROVENTIL HFA, VENTOLIN HFA) 90 mcg/actuation inhaler Inhale 2 Puffs as instructed every 6 hours as needed for wheezing/shortness of breath. cetirizine (ZYRTEC) 10 mg tablet Take 1 tablet by mouth once daily. triamcinolone acetonide (KENALOG) 0.1 % cream Apply to affected area twice daily. For up to 2 weeks at a time. spironolactone (ALDACTONE) 50 mg tablet Take 1 tablet by mouth once daily. zinc oxide (DESITIN) 13 % crea Apply to affected area as needed for up to 7 days. FAMILY HISTORY Problem Relation Age of Onset Seizures Maternal Grandmother Social History Tobacco Use Smoking status: Former Types: Cigarettes Smokeless tobacco: Never Tobacco comments: vape Vaping Use Vaping status: Never Used Substance Use Topics Alcohol use: No Drug use: Yes Review of Systems Constitutional: Negative for chills and fever. HENT: Negative for congestion, ear pain and sore throat. Respiratory: Negative for cough and shortness of breath. Cardiovascular: Negative for chest pain. Gastrointestinal: Negative for abdominal pain, diarrhea and vomiting. Genitourinary: Positive for menstrual problem and vaginal discharge. Negative for dysuria and pelvic pain. Objective BP 122/80 Pulse 118 Temp 36.8 ?C (98.3 ?F) Resp 18 Wt 100.5 kg (221 lb 9 oz) LMP 07/31/2024 SpO2 97% BMI 36.91 kg/m? Physical Exam Vitals and nursing note reviewed. Constitutional: General: She is not in acute distress. Appearance: Normal appearance. She is not toxic-appearing. HENT: Nose: Nose normal. Mouth/Throat: Mouth: Mucous membranes are moist. Eyes: Conjunctiva/sclera: Conjunctivae normal. Cardiovascular: Rate and Rhythm: Normal rate and regular rhythm. Pulmonary: Effort: Pulmonary effort is normal. Breath sounds: Normal breath sounds. Abdominal: General: Abdomen is flat. Palpations: Abdomen is soft. Tenderness: There is no abdominal tenderness. There is no right CVA tenderness, left CVA tenderness, guarding or rebound. Genitourinary: Comments: Deferred by patient Skin: General: Skin is warm and dry. Neurological: Mental Status: She is alert. {ASSESSMENT/PLAN: 1. Missed menses - ICD9: 626.4, ICD10: N92.6 (primary diagnosis)= - HCG QUAL UR B/O- negative 2. Vaginal discharge - ICD9: 623.5, ICD10: N89.8 - EULALIA/TRICHOMONAS NAAT - BACTERIAL VAGINOSIS NAAT - GONORRHEA/CHLAMYDIA NAAT -Please treat based on result Diagnosis and treatment plan were discussed and questions were answered to the patient's satisfaction. Pt acknowledged understanding of concepts and follow up plan. Specific signs and symptoms that would indicate the need for higher level of care were discussed in detail warranting prompt ER evaluation. MIKAEL Thakur History and Record Review External record(s) reviewed: prior out (more content not included)... 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) Internal QC [place] [facility] Location:[facility], [address] [facility], [place], [address] [facility] POINT OF CARE [facility] Emergency Department Summary on 08-28-2024 Emergency Department Summary [facility] Medical Records Department [address] [place] [address] Emergency Department Summary 08/28/24 MR#: [id number] Acct: [id number] Name: ANDREW MENA Rep #: [id number] : 1995 29 From: Bill Carrillo MD PCP: Stephany Bae DO Status:REG ER Location: ED HPI HPI - URI History of Present Illness Chief Complaint: Ear Problem Detail of Chief Complaint: Bilateral ear pain for 3 days. No trauma. Informant: patient Onset/Context/Timing Onset: Days Context: Gradual Onset Timing: Continuous Current Severity: Mild Maximum Severity: Mild Narrative Narrative: 29-year-old female no seen past medical history. Complaining of earache initially left now both. No trauma. She has not been swelling. No fever or sore throat. Prior similar symptoms: Yes Recent Illness/Hospitalizatio n: No ROS ROS ED ROS Narrative Bilateral ear discomfort. No other symptoms. Constitutional Constitutional ED: Denies fever(s) Eyes Eyes: Denies blurry vision ENT ENT ED: Reports ear pain; Denies rhinorrhea or sore throat Cardiovascular Cardiovascular: Denies chest pain or palpitations Respiratory/Chest Respiratory/Chest: Denies cough or dyspnea Gastrointestinal Gastrointestinal: Denies abdominal pain, diarrhea, nausea or vomiting Genitourinary Genitourinary ED: Denies dysuria or hematuria Musculoskeletal Musculoskeletal: Denies arthralgias Integumentary Denies abscess Neurologic Neurologic: Denies headache(s) Psychiatric Psychiatric: Denies anxiety Endocrine Endocrinology: Denies cold intolerance Hematologic/Lymphatic Hematologic/Lymphatic: Denies easy bleeding Allergic/Immunologic Allergic/Immunologic ED: Denies mouth swelling, tongue swelling or urticaria PFSH PFSH Medical History Alcohol withdrawal Obesity (BMI 30-39.9) Vaginal discharge Seasonal allergies Asthma Home Medications ???Medication ???Instructions ???Recorded ???Last Taken ???Type albuterol sulfate 90 mcg/actuation 1 inh inhalation Q6H PRN shortne ss 02/13/21 08/11/22 Rx aerosol inhaler of breath or wheezing #8.5 grams loratadine 10 mg tablet (Allergy 10 mg PO DAILY Check with primary 08/18/22 08/18/22 History Relief (loratadine)) doctor albuterol sulfate 90 mcg/actuation 1 - 2 puff inhalation Q4H PRN KS N 02/29/24 Unknown Rx aerosol inhaler (Ventolin HFA) Wheezing ##1 cephalexin 500 mg capsule 500 mg PO Q12 #14 CAPSULES 4 Unknown Rx fluconazole 150 mg tablet 150 mg PO X1 PRN yeast 1 dose #2 0 02/29/24 Unknown Rx tabs loratadine 10 mg tablet (Claritin) 10 mg PO DAILY #30 tabs 02/29/24 Unknown Rx albuterol sulfate 90 mcg/actuation 1 - 2 puff inhalation Q4H PRN KS N 03/24/24 Unknown Rx aerosol inhaler (Ventolin HFA) Wheezing ##1 fluconazole 150 mg tablet 150 mg PO Q3D 2 doses #2 tabs 100 09/12 Unknown Rx metronidazole 500 mg tablet 500 mg PO BID 7 days #14 tabs 100 09/12 Unknown Rx fluconazole 150 mg tablet 150 mg PO Q3D 2 doses #2 tabs 04/23 01/12 Unknown Rx metronidazole 500 mg tablet 500 mg PO BID 7 days #14 tabs 04/23 01/12 Unknown Rx azithromycin 250 mg tablet 250 mg PO DAILY 4 days #4 tabs 03/16 Unknown Rx (Zithromax) Allergy/AdvReac Type Severity Reaction Status Date / Time penicillin G Allergy Mild Hives Verified 08/28/24 18:30 venom-honey bee (bee venom Allergy Swelling Verified 08/28/24 18:30 (honey bee)) Family History Grandmother Asthma Arthritis Surgical History History of wisdom tooth extraction Social History Smoking Status: Current some day smoker tobacco type: cigarettes alcohol intake: never substance use type: does not use what type of physical activity do you participate in: walking frequency: 5-6 times per week EXAM Physical Exam Narrative Exam Narrative: Well-appearing 29-year-old female. Vital signs stable afebrile. Sitting upright in bed. No distress. HEENT exam pupils round reactive light. Moist mucous membranes. Posterior pharynx normal. No erythema or exudate. No trouble swallowing or breathing. Left TM dull red and retracted. No perforation. Canal unremarkable. Right TM dull red and retracted also. No perforation. Canal unremarkable. Consistent with bilateral otitis media. Neck mild eustachian tube tenderness. No lymphadenopathy. Lungs clear to auscultation bilaterally. Heart regular rhythm no murmur. Rate about 60. Chest wall nontender. Abdomen soft nontender. Moving all 4 extremities. Normal strength. Nontender no edema. Neurologically she is awake and alert no focal motor deficits. Const Vital Signs: 08/28/24 18:28 [place] (more content not included)... Normal [facility] BACTERIAL VAGINOSIS NAATon 0 08-20-2024 Lactobacillus crispatus+gasseri+eve enii + Gardnerella vaginalis + Atopobium vaginae rRNA LILIANE+probe Ql (Vag fld) Not detected Normal Not detected [facility] Comment on above: Order Comment: Speci men Type: SWABOrdering Facility: [facility] Address: [address] [place] [address] Performed By: #### 3 6902-5, BVAMP ####[facility] [id number] [place] [address] [place] C. trachomatis+N. gonorrhoea e DNA LILIANE+probe Ql (Unsp spec)on 08-20-2024 C. trachomatis rRNA LILIANE+probe Ql (Unsp spec) Not detected Normal Not detected [facility] Comment on above: Order Comment: Speci men Type: SWABOrdering Facility: [facility] Address: [address] [place] [address] Performed By: #### 3 6902-5, BVAMP ####[facility] [id number] [address] N. gonorrhoeae rRNA LILIANE+probe Ql (Unsp spec) Not detected Normal Not detected [facility] Comment on above: Order Comment: Speci men Type: SWABOrdering Facility: [facility] Address: [address] [place] [address] Performed By: #### 3 6902-5, BVAMP ####[facility] [id number] [address] [place] CNOVon 08-20-2024 [facility] ANDREW [facility]NA ([id number]) 1995 F Date Time Provider Department 08/20/24 11:45 AM EVY [facility] During your visit today, we recorded the following information about you: Temperature Pulse Respiration Blood pressure 98.6 degrees 95/minute 16/minute 105/74 Weight 103 kg Evy San, [employer] 08/20/2024 12:41 PM Signed Subjective The history is provided by the patient. No counselor aide was used. SHERRY Andrew Mena is a 29 year old female who presents today for CC of known exposure to gonorrhea and chlamydia, partner tested positive. She desires treatment today. She is also asking for fluconazole for yeast infection after medication. She is late on menses requesting test, not using protection. BP 105/74 Pulse 95 Temp 37 ?C (98.6 ?F) Resp 16 Wt 103 kg (227 lb 1.2 oz) LMP 07/31/2024 SpO2 98% BMI 37.83 kg/m? Social History Tobacco Use Smoking status: Former Types: Cigarettes Smokeless tobacco: Never Tobacco comments: vape Vaping Use Vaping status: Never Used Substance Use Topics Alcohol use: No Drug use: Yes PAST MEDICAL HISTORY Diagnosis Date Marijuana use Methamphetamine abuse (HCC) Substance abuse (HCC) I have confirmed and edited as necessary, the [facility] Review of Systems Constitutional: Negative for chills and fever. Gastrointestinal: Negative for abdominal pain. Genitourinary: Negative for dysuria, flank pain, frequency, hematuria and urgency. Yellow vaginal discharge Objective Physical Exam Vitals and nursing note reviewed. Pulmonary: Effort: Pulmonary effort is normal. Genitourinary: Comments: Declined exam will self swab. Skin: General: Skin is warm and dry. Neurological: Mental Status: She is alert and oriented to person, place, and time. Psychiatric: Mood and Affect: Affect normal. ASSESSMENT/PLAN: 1. Secondary amenorrhea - ICD9: 626.0, ICD10: N91.1 (primary diagnosis) Hcg negative - UA DIP,URINE HCG (POC) 2. Exposure to STD - ICD9: V01.6, ICD10: Z20.2 Testing done, and treated today for chlamydia and gonorrhea with doxycycline and rocephin injection - GONORRHEA/CHLAMYDIA NAAT 3. Acute vaginitis - ICD9: 616.10, ICD10: N76.0 Testing done, given fluconazole, rocephin, and doxycycline Will call if additional treatment is needed - BACTERIAL VAGINOSIS NAAT - EULALIA/TRICHOMONAS NAAT Diagnosis and treatment plan were discussed and questions were answered to the patient's satisfaction. Pt acknowledged understanding of concepts and follow up plan. Specific signs and symptoms that would indicate the need for higher level of care were discussed in detail warranting prompt ER evaluation. Evy San APRN.SUGAR SAMPLER Allergies As of Date: 08/20/2024 Noted Allergy Reaction PENICILLINS 08/20/2011 2 - Rash VENOM-HONEY BEE 05/06/2018 7 - Swelling Date Reviewed: 08/20/2024 Reviewed by: Nicki Weber MA - Fully Assessed Reason for Visit: STI check [Other] Primary Visit Diagnosis:Secondary amenorrhea [N91.1] Other Visit Diagnoses:Exposure to STD [Z20.2] Acute vaginitis [N76.0] Order(s):UA DIP, URINE (POC) [2344679] Order #: [id number]. #:[id number] UA DIP,URINE HCG (POC) [[id number]] Order #: [id number]. #:[id number] GONORRHEA/CHLAMYDIA NAAT [SQGCCT] Order #: [id number]. #:[id number] BACTERIAL VAGINOSIS NAAT [SQBVAMP] Order #: [id number]. #:[id number] EULALIA/TRICHOMONAS NAAT [SQCVTV] Order #: [id number]. #:[id number] fluconazole (DIFLUCAN) 150 mg tabletTake 1 tablet by mouth one time only for 1 dose.Disp: 1 tabletRfl: 0 doxycycline monohydrate 100 mg tabletTake 1 tablet by mouth two times a day for 7 days.Disp: 14 tabletRfl: 0 [] cefTRIAXone 500 mg intramuscular injection (ROCEPHIN)Disp: Rfl: Prescriptions as of 08/20/2024 - fluconazole (DIFLUCAN) 150 mg tablet Take 1 tablet by mouth one time only for 1 dose. - doxycycline monohydrate 100 mg tablet Take 1 tablet by mouth two times a day for 7 days. - SYMBICORT 80-4.5 mcg/actuation inhaler Inhale 2 Puffs as instructed two times a day. - buPROPion XL (WELLBUTRIN XL) 150 mg 24 hr tablet Take 1 tablet by mouth daily. Do not break tablet as it turns it from a long acting medication to a short acting medication. - FEROSUL 325 mg (65 mg iron) tablet Take 1 tablet by mouth every 12 hours. - ALLERGY RELIEF, LORATADINE, 10 mg tablet Take 10 mg by mouth once daily. - albuterol HFA (PROVENTIL HFA, VENTOLIN HFA) 90 mcg/actuation inhaler Inhale 2 Puffs as instructed every 6 hours as needed for wheezing/shortness of breath. - cetirizine (ZYRTEC) 10 mg tablet Take 1 tablet by mouth once daily. - triamcinolone acetonide (KENALOG) 0.1 % cream Apply to affected area twice daily. For up to 2 weeks at a time. - spironolactone (ALDACTONE (more content not included)... Normal [facility] UA DIP, URINE (POC)on 2024 BILIRUBIN UA (POCT) Negative Negative [facility] CLARITY UA (POCT) Clear [facility] COLOR UA (POCT) Yellow [facility] GLUCOSE UA (POCT) Negative Negative mg/dL [facility] Hemoglobin Ql (U) Negative Negative [facility] KETONE UA (POCT) Negative Negative mg/dL [facility] LEUKOCYTES UA (POCT) Negative Negative [facility] NITRITE UA (POCT) Negative Negative [facility] PH UA (POCT) 7 4.5 - 8.0 [facility] Protein Ql (U) Negative Negative mg/dL [facility] SPECIFIC GRAVITY UA (POCT) 1.025 1.005 - 1.030 [facility] UROBILINOGEN UA (POCT) 0.2 Normal E.U./d L [facility] Location:[address], [id number] [place] [address] POINT OF CARE [facility] UA DIP,URINE HCG (POC)on Beta HCG ( test) Ql (U) Negative Negative [facility] Comment on above: Location:[address], [address] Quality Control Industrial Engineer (POCT) Internal QC OK [facility] Location:[address] POINT OF CARE [facility] BACTERIAL VAGINOSIS NAATon 0 08-03-2024 Lactobacillus crispatus+gasseri+eve enii + Gardnerella vaginalis + Atopobium vaginae rRNA LILIANE+probe Ql (Vag fld) Not detected Normal Not detected [facility] Comment on above: Order Comment: Speci men Type: SWABOrdering Facility: [facility] Address: [address] [place] [address] Performed By: #### Steven RODRÍGUEZ, 64634-0 ####[facility] [id number] [place] [address] [place] Bacteria Ur Culton Bacteria identified Cx Nom (U) ORGANISM ID: 1 10,000 -<50,000 CFU/ml Normal urogenital angel Normal [facility] Comment on above: Performed By: #### 6 30-4 ####[facility] [id number] [place] [address] [place] C. trachomatis+N. gonorrhoea e DNA LILIANE+probe Ql (Unsp spec)on 08-03-2024 C. trachomatis rRNA LILIANE+probe Ql (Unsp spec) Not detected Normal Not detected [facility] Comment on above: Order Comment: Speci men Type: SWABOrdering Facility: [facility] Address: [address] [place] [address] Performed By: #### B VAMP, 03168-6 ####[facility] [id number] [address] [place] N. gonorrhoeae rRNA LILIANE+probe Ql (Unsp spec) Not detected Normal Not detected [facility] Comment on above: Order Comment: Speci men Type: SWABOrdering Facility: [facility] Address: [address] [place] [address] Performed By: #### Steven VAMP, 88714-6 ####[facility] LAB[facility] [id number] [place] [address] [place] EULALIA/TRICHOMONAS NAATon 0 08-03-2024 C. glabrata RNA LILIANE+probe Ql (Vag fld) Not detected Normal Not detected [facility] Comment on above: Order Comment: Speci men Type: SWABOrdering Facility: [facility] Address: [address] [place] [address] Performed By: #### 6 30-4 #### [facility] CLIA [id number] [address] [place] [address] [place] Eulalia sp DNA LILIANE+probe Ql (Vag fld) Not detected Normal Not detected [facility] Comment on above: Order Comment: Speci men Type: SWABOrdering Facility: [facility] Address: [address] [place] [address] Result Comment: The Eulalia species group target includes C. albicans, C. tropicalis, C. parapsilosis, and C. dubliniensis. Performed By: #### 6 30-4 #### [facility] CLIA [id number] [address] [place] [address] T. vaginalis DNA LILIANE+probe Ql (Unsp spec) Not detected Normal Not detected [facility] Comment on above: Order Comment: Speci men Type: SWABOrdering Facility: [facility] Address: [address] [place] [address] Performed By: #### 6 30-4 #### [facility] CLIA [id number] [address] [place] [address] OF [facility] CNOVon 08-03-2024 CNOV Office Visit (WSTR ) ANDREW MENA ([id number]) 1995 F Date Time Provider Department 08/03/24 2:30 PM NATHANIEL MORALES WSTR During your visit today, we recorded the following information about you: Temperature Pulse Respiration Blood pressure 98.3 degrees 91/minute 18/minute 129/85 Weight Last Period 103.5 kg 07/31/24 Nathaniel Morales PA 08/03/2024 2:06 PM Signed This note was created using [employer]. Subjective Andrew Mena is a 29 year old female. HPI 29-year-old female presents for STD testing. Patient states that she had a new sexual partner a few weeks ago and would like tested for STDs. She states she has been having vaginal discharge for the past week. She has a little bit of suprapubic pressure and mild dysuria. No rash. She denies any pelvic pain. No vomiting. No back pain. She states she has a little bit of vaginal itching with the discharge. She states she has had BV in the past and this feels similar. No concern for , LMP was a few days ago. No other complaint. PAST MEDICAL HISTORY Diagnosis Date Marijuana use Methamphetamine abuse ([facility]) Substance abuse ([facility]) PAST SURGICAL HISTORY Procedure Laterality Date NEXPLANON INSERTION Left 02/22/2021 PAST SURGICAL HISTORY OF wisdom teeth ALLERGIES Penicillins and Venom-Honey Bee MEDICATIONS SYMBICORT 80-4.5 mcg/actuation inhaler Inhale 2 Puffs as instructed two times a day. FEROSUL 325 mg (65 mg iron) tablet Take 1 tablet by mouth every 12 hours. buPROPion XL (WELLBUTRIN XL) 150 mg 24 hr tablet Take 1 tablet by mouth daily. Do not break tablet as it turns it from a long acting medication to a short acting medication. ALLERGY RELIEF, LORATADINE, 10 mg tablet Take 10 mg by mouth once daily. albuterol HFA (PROVENTIL HFA, VENTOLIN HFA) 90 mcg/actuation inhaler Inhale 2 Puffs as instructed every 6 hours as needed for wheezing/shortness of breath. cetirizine (ZYRTEC) 10 mg tablet Take 1 tablet by mouth once daily. triamcinolone acetonide (KENALOG) 0.1 % cream Apply to affected area twice daily. For up to 2 weeks at a time. spironolactone (ALDACTONE) 50 mg tablet Take 1 tablet by mouth once daily. zinc oxide (DESITIN) 13 % crea Apply to affected area as needed for up to 7 days. FAMILY HISTORY Problem Relation Age of Onset Seizures Maternal Grandmother Social History Tobacco Use Smoking status: Former Types: Cigarettes Smokeless tobacco: Never Tobacco comments: vape Vaping Use Vaping status: Never Used Substance Use Topics Alcohol use: No Drug use: Yes Review of Systems Constitutional: Negative for chills and fever. HENT: Negative for congestion, ear pain and sore throat. Respiratory: Negative for cough and shortness of breath. Cardiovascular: Negative for chest pain. Gastrointestinal: Negative for diarrhea and vomiting. Genitourinary: Positive for dysuria and vaginal discharge. Negative for frequency, pelvic pain, urgency, vaginal bleeding and vaginal pain. Objective BP 129/85 Pulse 91 Temp 36.8 ?C (98.3 ?F) Resp 18 Wt 103.5 kg (228 lb 2.8 oz) LMP 07/31/2024 SpO2 99% No BMI 38.02 kg/m? Physical Exam Vitals and nursing note reviewed. Constitutional: General: She is not in acute distress. Appearance: Normal appearance. She is not toxic-appearing. Cardiovascular: Rate and Rhythm: Normal rate and regular rhythm. Pulmonary: Effort: Pulmonary effort is normal. Breath sounds: Normal breath sounds. Abdominal: General: Abdomen is flat. Palpations: Abdomen is soft. Tenderness: There is no abdominal tenderness. There is no right CVA tenderness, left CVA tenderness, guarding or rebound. Genitourinary: Comments: deferred Skin: General: Skin is warm and dry. Neurological: Mental Status: She is alert. Assessment and Plan ASSESSMENT/PLAN: 1. Dysuria - ICD9: 788.1, ICD10: R30.0 (primary diagnosis) acute - UA positive for hematuria- pt at end of menstrual cycle - Send urine for culture - Patient education for prevention given - UA DIP, URINE (POC) - BACTERIAL CULTURE, URINE 2. Vaginal discharge - ICD9: 623.5, ICD10: N89.8 - EULALIA/TRICHOMONAS NAAT - BACTERIAL VAGINOSIS NAAT - GONORRHEA/CHLAMYDIA NAAT -Patient declines HIV/syphilis/hepatitis testing -Please treat based on results. No concern for . Diagnosis and treatment plan were discussed and questions were answered to the patient's satisfaction. Pt acknowledged understanding of concepts and follow up plan. Specific signs and symptoms that would indicate the need for higher level of care were discussed in detail warranting prompt ER evaluation. MIKAEL Thakur Allergies As of Date: 08/03/2024 Noted Allergy Reaction PENICILLINS 08/20/2011 2 - Rash VENOM-HONEY BEE 05/06/2018 7 - Swelling Date Reviewed: 08/03/2024 Reviewed by: Jessica Rivera (more content not included)... [facility]IP, URINE (POC)on 2024 BILIRUBIN UA (POCT) Negative Negative [facility] CLARITY UA (POCT) Clear [facility] COLOR UA (POCT) Yellow [facility] GLUCOSE UA (POCT) Negative Negative mg/dL [facility] Hemoglobin Ql (U) Moderate Abnormal Negative [facility] Interpretation and review of laboratory results Abnormal [facility] KETONE UA (POCT) Negative Negative mg/dL [facility] LEUKOCYTES UA (POCT) Negative Negative [facility] NITRITE UA (POCT) Negative Negative [facility] PH UA (POCT) 6.5 4.5 - 8.0 [facility] Protein Ql (U) Negative Negative mg/dL [facility] SPECIFIC GRAVITY UA (POCT) 1.025 1.005 - 1.030 [facility] UROBILINOGEN UA (POCT) 0.2 Normal E.U./d L [facility] Location:[address], [place], [address] [facility] POINT OF CARE [facility] Hepatitis Panel Acuteon -0 COMMENT Comment Normal . [facility] Comment on above: Result Comment: Not infected with HCV unless early or acute infection is suspected (which may be delayed in an immunocompromised individual), or other evidence exists to indicate HCV infection. Performed at: - [facility] [id number] Salvage Mechanic: Virgilio Toro PhD, Phone: [phone] Performed By: #### L 100.0100, L700.6800, L500.4050 #### [facility] [address] [facility] [place], [address] HEP B CORE,IgM Negative Normal Negative [facility] Comment on above: Performed By: #### L 100.0100, L700.6800, L500.4050 #### [facility] [address] [place], [address] HEP B SURF AG Negative Normal Negative [facility] Comment on above: Performed By: #### L 100.0100, L700.6800, L500.4050 #### [facility] [address] [facility] [address] HEP C VIRUS AB Non-Reactive Normal Non Reactive [facility] Comment on above: Performed By: #### L 100.0100, L700.6800, L500.4050 #### [facility] [address] [place], [address] HEPATITIS A-IgM Negative Normal Negative [facility] Comment on above: Result Comment: A ne gative anti-HAV IgM result suggests no recent or current HAV infection. Performed By: #### L 100.0100, L700.6800, L500.4050 #### [facility] [address] [place], [place], [address] HBV surface Ag IA QlOrdered By: Stephany Bae on 06-28-2024 Hepatitis B Surface Antigen Negative Negative [facility] Hepatitis A virus IgM antibo dy assayOrdered By: Stephany Bae on 06-28-2024 Hepatitis A IgM Antibody Negative Negative [facility] Comment on above: A negative anti-HAV IgM result suggests no recent orcurrent HAV infection. Hepatitis B virus core IgM a ntibody assayOrdered By: Stephany Bae on 06-28-2024 Hepatitis B Core IgM Antibody Negative Negative [facility] Hepatitis C virus antibody a ssayOrdered By: Stephany Bae on 06-28-2024 Hepatitis C Antibody (EIA) Non-Reactive Non Reactive [facility] No Panel InformationOrdered By: Stephany Bae on 06-28-2024 Hepatitis C Antibody Comment Comment . [facility] Comment on above: Not infected with HC V unless early or acute infection issuspected (which may be delayed in an immunocompromisedindividual), or other evidence exists to indicate HCVinfection.Performed at: - [facility] [id number] Director: Virgilio Toro PhD, Phone: [phone] BACTERIAL VAGINOSIS [facility] 1 08-18-2023 Lactobacillus crispatus+gasseri+eve enii + Gardnerella vaginalis + Atopobium vaginae rRNA LILIANE+probe Ql (Vag fld) Not detected Normal Not detected [facility] Comment on above: Order Comment: Speci men Type: SWABOrdering Facility: [facility] Address: [address] [place] [address] Performed By: #### 3 6902-5, BVAMP ####[facility] [id number] [place] [address] [place] C. trachomatis+N. gonorrhoea e DNA LILIANE+probe Ql (Unsp spec)on 06-17-2024 C. trachomatis rRNA LILIANE+probe Ql (Unsp spec) Not detected Normal Not detected [facility] Comment on above: Order Comment: Speci men Type: SWABOrdering Facility: [facility] Address: [address] [place] [address] Performed By: #### 3 6902-5, BVAMP ####[facility] [id number] [place] [address] [place] N. gonorrhoeae rRNA LILIANE+probe Ql (Unsp spec) Not detected Normal Not detected [facility] Comment on above: Order Comment: Speci men Type: SWABOrdering Facility: [facility] Address: [address] [place] [address] Performed By: #### 3 6902-5, BVAMP ####[facility] [id number] [place] [address] [place] EULALIA/TRICHOMONAS NAATon 1 08-18-2023 C. glabrata RNA LILIANE+probe Ql (Vag fld) Not detected Normal Not detected [facility] Comment on above: Order Comment: Speci men Type: SWABOrdering Facility: [facility] Address: [address] [place] [address] Performed By: #### C VTV ####[facility] [id number] [place] [address] [place] Eulalia sp DNA LILIANE+probe Ql (Vag fld) Not detected Normal Not detected [facility] Comment on above: Order Comment: Speci men Type: SWABOrdering Facility: [facility] Address: [address] [place] [address] Result Comment: The Eulalia species group target includes C. albicans, C. tropicalis, C. parapsilosis, and C. dubliniensis. Performed By: #### C VTV ####[facility] LAB[facility] [id number] [address] STATES OF [facility] T. vaginalis DNA LILIANE+probe Ql (Unsp spec) Not detected Normal Not detected [facility] Comment on above: Order Comment: Speci men Type: SWABOrdering Facility: [facility] Address: [address] [place] [address] Performed By: #### C VTV ####[facility] [id number] [address] OF [facility] CNOVon 06-17-2024 CNOV Office Visit (UCWSTR ) ANDREW MENA ([id number]) 1995 F Date Time Provider Department 06/17/24 9:30 AM YUE RESENDIZ [facility] During your visit today, we recorded the following information about you: Temperature Pulse Respiration Blood pressure 98 degrees 105/minute 18/minute 131/85 Weight 100.6 kg Yue Resendiz PA-C 06/17/2024 11:07 AM Signed This note was created using [employer]. Subjective Andrew Mena is a 29 year old female. HPI Patient presents with the chief complaint of vaginal discharge and odor for 2 weeks. She states she was seen in the ER and positive for BV 2 to 3 weeks ago. She states she did take Flagyl for this. She is having burning and itching as well. She states sometimes she does get yeast infections from antibiotics. States she has not been sexually active in 2 to 3 months. Did have a miscarriage in January. She denies chance of now. She does have some dysuria. No frequency or urgency. No blood in urine. She is not sure when her last menstrual cycle was. Review of Systems Constitutional: Negative. HENT: Negative. Respiratory: Negative. Gastrointestinal: Negative. Genitourinary: Positive for dysuria, vaginal discharge and vaginal pain. Negative for flank pain, frequency, pelvic pain and urgency. Musculoskeletal: Negative. All other systems reviewed and are negative. PAST MEDICAL HISTORY Diagnosis Date Marijuana use Methamphetamine abuse ([facility]) Substance abuse ([facility]) Current Outpatient Medications Medication Sig Dispense Refill albuterol HFA (PROVENTIL HFA, VENTOLIN HFA) 90 mcg/actuation inhaler Inhale 2 Puffs as instructed every 6 hours as needed for wheezing/shortness of breath. 1 Each 0 cetirizine (ZYRTEC) 10 mg tablet Take 1 tablet by mouth once daily. 90 tablet 3 triamcinolone acetonide (KENALOG) 0.1 % cream Apply to affected area twice daily. For up to 2 weeks at a time. 45 g 3 fluconazole (DIFLUCAN) 150 mg tablet Take 1 tablet by mouth once daily for 1 day. 1 tablet 0 spironolactone (ALDACTONE) 50 mg tablet Take 1 tablet by mouth once daily. 30 tablet 11 zinc oxide (DESITIN) 13 % crea Apply to affected area as needed for up to 7 days. 57 g 0 No current facility-administered medications for this visit. PAST SURGICAL HISTORY Procedure Laterality Date NEXPLANON INSERTION Left 02/22/2021 PAST SURGICAL HISTORY OF wisdom teeth FAMILY HISTORY Problem Relation Age of Onset Seizures Maternal Grandmother Social History Tobacco Use Smoking status: Former Types: Cigarettes Smokeless tobacco: Never Tobacco comments: vape Vaping Use Vaping status: Never Used Substance Use Topics Alcohol use: No Drug use: Yes Objective BP 131/85 Pulse 105 Temp 36.7 ?C (98 ?F) Resp 18 Wt 100.6 kg (221 lb 12.5 oz) LMP 09/17/2023 SpO2 100% BMI 36.95 kg/m? Physical Exam Vitals reviewed. Constitutional: Appearance: Normal appearance. HENT: Head: Normocephalic and atraumatic. Genitourinary: Comments: Exam deferred Skin: General: Skin is warm and dry. Neurological: General: No focal deficit present. Mental Status: She is alert and oriented to person, place, and time. Assessment and Plan ASSESSMENT/PLAN: 1. Vaginal discharge - ICD9: 623.5, ICD10: N89.8 Swabs are pending. Will treat based on results. I did send in Diflucan today. Pharmacy location recommended follow-up with [facility]. She did just finished treatment with Flagyl for BV 2 weeks ago. - BACTERIAL VAGINOSIS NAAT - EULALIA/TRICHOMONAS NAAT - GONORRHEA/CHLAMYDIA NAAT - UA DIP, URINE (POC) Yue Resendiz PA-C Allergies As of Date: 06/17/2024 Noted Allergy Reaction PENICILLINS 08/20/2011 2 - Rash VENOM-HONEY BEE 05/06/2018 7 - Swelling Date Reviewed: 06/17/2024 Reviewed by: Jessica Rivera MA - Fully Assessed Reason for Visit: Vaginal Problem [117] Cmt: Diacharge, odor Primary Visit Diagnosis:Vaginal discharge [N89.8] Order(s):BACTERIAL VAGINOSIS NAAT [SQBVAMP] Order #: [id number]. #:[id number] EULALIA/TRICHOMONAS NAAT [SQCVTV] Order #: [id number]. #:[id number] GONORRHEA/CHLAMYDIA NAAT [SQGCCT] Order #: [id number]. #:[id number] fluconazole (DIFLUCAN) 150 mg tabletTake 1 tablet by mouth once daily for 1 day.Disp: 1 tabletRfl: 0 UA DIP, URINE (POC) [[id number]] Order #: [id number]. #:[id number] Prescriptions as of 06/17/2024 - fluconazole (DIFLUCAN) 150 mg tablet Take 1 tablet by mouth once daily for 1 day. - albuterol HFA (PROVENTIL HFA, VENTOLIN HFA) 90 mcg/actuation inhaler Inhale 2 Puffs as instructed every 6 hours as needed for wheezing/shortness of breath. - cetirizine (ZYRTEC) 10 mg tablet Take 1 tablet by mouth once daily. - triamcinolone acetonide (KENALOG) 0.1 % cream Apply to affected area twice daily. For up to 2 weeks at a time. - spironolactone (AL (more content not included)... Normal [facility] UA DIP, URINE (POC)on 2023 BILIRUBIN UA (POCT) Negative Negative [facility] CLARITY UA (POCT) Clear [facility] COLOR UA (POCT) Yellow [facility] GLUCOSE UA (POCT) Negative Negative mg/dL [facility] Hemoglobin Ql (U) Negative Negative [facility] KETONE UA (POCT) Negative Negative mg/dL [facility] LEUKOCYTES UA (POCT) Negative Negative [facility] NITRITE UA (POCT) Negative Negative [facility] PH UA (POCT) 7.0 4.5 - 8.0 [facility] Protein Ql (U) Negative Negative mg/dL [facility] SPECIFIC GRAVITY UA (POCT) 1.015 1.005 - 1.030 [facility] UROBILINOGEN UA (POCT) 0.2 Normal E.U./d L [facility] Location:[facility], [address] [place] [address], [place], [place], [address] [place] [address] POINT OF CARE [facility] Bacteria LM.HPF (Urine sed) [#/Area]Ordered By: Etta Nayak on 05-18-2024 Urine Bacteria RARE /hpf None Seen [facility] Bilirubin Test strip Ql (U)O rdered By: Etta Nayak on 05-18-2024 Bilirubin Ql (U) Negative Negative [facility] Chlamydia and Neisseria gono rrhoeae detection by PCROrdered By: Etta Nayak on 05-18-2024 Chlamydia/Neisseria (PCR) [facility] Emergency Department Summary on 05-18-2024 Emergency Department Summary [facility] Medical Records Department [address] [place] [address] Emergency Department Summary 05/18/24 MR#: [id number] Acct: [id number] Name: ANDREW MENA Rep #: [id number] : 1995 29 From: Etta Nayak DO PCP: Stephany Bae DO Status:DEP ER Location: ED HPI HPI - Female History of Present Illness Chief Complaint: Complaint Informant: patient Narrative Narrative: Patient is a 29-year-old female presenting with abnormal vaginal discharge. She states for the past few weeks she has had copious watery vaginal discharge. She denies associated odor. She states she just had a generalized vaginal discomfort and irritation. Denies any dysuria or hematuria. Notes that she did recently have a miscarriage at approximately 7 weeks about a month ago. She is not sure if the miscarriage caused BV. She denies any vaginal bleeding. She denies any recent sexual activity but states he would like to be checked for it all. She does follow with OB at [facility]. She denies any associated fever. She has noted that her urine has had some sediment in it. She has some mild suprapubic abdominal discomfort. Last menstrual period was 2 weeks ago. No other complaints or concerns reported at this time. [facility] Medical History Alcohol withdrawal Obesity (BMI 30-39.9) Vaginal discharge Seasonal allergies Asthma Home Medications ???Medication ???Instructions ???Recorded ???Last Taken ???Type albuterol sulfate 90 mcg/actuation 1 inh inhalation Q6H PRN shortness 02/13/21 08/11/22 Rx aerosol inhaler of breath or wheezing #8.5 grams loratadine 10 mg tablet (Allergy 10 mg PO DAILY Check with primary 08/18/22 08/18/22 History Relief (loratadine)) doctor albuterol sulfate 90 mcg/actuation 1 - 2 puff inhalation Q4H PRN PRN 02/29/24 Unknown Rx aerosol inhaler (Ventolin HFA) Wheezing ##1 cephalexin 500 mg capsule 500 mg PO Q12 #14 CAPSULES 02/29/24 Unknown Rx fluconazole 150 mg tablet 150 mg PO X1 PRN yeast 1 dose #2 02/29/24 Unknown Rx tabs loratadine 10 mg tablet (Claritin) 10 mg PO DAILY #30 tabs 02/29/24 Unknown Rx albuterol sulfate 90 mcg/actuation 1 - 2 puff inhalation Q4H PRN PRN 03/24/24 Unknown Rx aerosol inhaler (Ventolin HFA) Wheezing ##1 fluconazole 150 mg tablet 150 mg PO Q3D 2 doses #2 tabs 03/24/24 Unknown Rx metronidazole 500 mg tablet 500 mg PO BID 7 days #14 tabs 03/24/24 Unknown Rx fluconazole 150 mg tablet 150 mg PO Q3D 2 doses #2 tabs 05/18/24 Unknown Rx metronidazole 500 mg tablet 500 mg PO BID 7 days #14 tabs 05/18/24 Unknown Rx Allergy/AdvReac Type Severity Reaction Status Date / Time penicillin G Allergy Mild Hives Verified 05/18/24 16:16 venom-honey bee (bee venom Allergy Swelling Verified 05/18/24 16:16 (honey bee)) Family History Grandmother Asthma Arthritis Surgical History History of wisdom tooth extraction Social History Smoking Status: Current some day smoker tobacco type: cigarettes alcohol intake: never substance use type: does not use what type of physical activity do you participate in: walking frequency: 5-6 times per week ROS ROS ED Constitutional Constitutional ED: Denies chills or fever(s) Respiratory/Chest Respiratory/Chest: Denies cough Gastrointestinal Gastrointestinal: Reports abdominal pain; Denies constipation, diarrhea, nausea or vomiting Genitourinary Genitourinary ED: Reports other Details: Denies vaginal bleeding. Abnormal vaginal discharge reported. ; Denies dysuria or hematuria Musculoskeletal Musculoskeletal: Denies myalgias Integumentary Denies rash EXAM Physical Exam Const Vital Signs: 05/18/24 16:16 Temperature 98.6 F Temperature Source Temporal Pulse Rate 100 Respiratory Rate 16 Blood Pressure 129/92 H Blood Pressure Mean 104 Pulse Ox 99 Oxygen Delivery Method Room Air Positive well nourished and well developed General Appearance ED: well developed and NAD HEENT Reports moist mucous membranes Chest Wall inspection of chest normal Resp normal respiratory effort and clear to auscultation bilaterally Cardio regular rate and regular rhythm GI normal to inspection, nondistended, normoactive bowel sounds, soft to palpation and non-tender Narrative: Normal external genitalia. No sores appreciated. On speculum exam patient has a mildly irritated appearing cervix. There is clear thin discharge present. No cervical motion tenderness on bimanual exam. No adnexal tenderness appreciated. Back/Spine no CVA tenderness Extremity normal to inspection and full ROM (more content not included)... Normal [facility] Epithelial cells.squamous LM Ql (Urine sed)Ordered By: Etta Nayak on 05-18-2024 Epithelial cells.squamous LM.HPF (Urine sed) [#/Area] 5 /[HPF] 5-10 [facility] Glucose Ql (U)Ordered By: Heath Nayak on 05-18-2024 Urine Glucose (UA) Normal mg/dl Normal [facility] HIV - WCHon 05-18-2024 HIV Non-Reactive Normal Nonreactive [facility] Comment on above: Performed By: #### L 3890.6005, L509.8000 #### [facility] [address] [place], [address] HIV 1+2 Ab+HIV1 p24 Ag IA Ql Ordered By: Etta Nayak on 05-18-2024 HIV (1&2) Antibody Non-Reactive Nonreactive [facility] Ketones Test strip Ql (U)Ord ered By: Etta Nayak on 05-18-2024 Ketones Ql (U) 15 mg/dl High Negative [facility] L509.8000on 05-18-2024 Syphilis Abs Non-Reactive Normal [facility] Comment on above: Performed By: #### L 3890.6005, L509.8000 #### [facility] [address] [place], [address] M8200.2203on 05-18-2024 M8200.2203 Pending Chlamydia Trachomatis PCR NEGATIVE for Chlamydia trachomatis N. gonorrhoeae PCR Negative for N. gonorrhoeae Normal [facility] Comment on above: Performed By: #### L 100.0100, L700.6800, L500.4050 #### [facility] [address] [place], [address] Microscopic analysis of urin e for red blood cells (RBC)Ordered By: Etta Nayak on 05-18-2024 Urine RBC 0-5 SEEN /hpf 0-5 [facility] Mucus LM Ql (Urine sed)Order ed By: Etta Nayak on 05-18-2024 Mucus Ql (Urine sed) RARE /hpf [facility] Nitrite Test strip Ql (U)Ord ered By: Etta Nayak on 05-18-2024 Nitrite Ql (U) Negative Negative [facility] ,Urineon 05-18-2024 Beta HCG ( test) Ql (U) Negative Normal [facility] Comment on above: Order Comment: CLEAN CATCH Result Comment: Very dilute urine specimens, as indicated by a low specific gravity, may not contain auto claim representative levels of hCG. If is still suspected, a first morning urine specimen should be collected 48 hours later and tested. Performed By: #### L 100.0100, L700.6800, L500.4050 #### [facility] [address] [place], [address] Protein Test strip Ql (U)Ord ered By: Etta Nayak on 05-18-2024 Protein Ql (U) 15 mg/dl High Negative [facility] T. vaginalis Wet prep Ql (Un sp spec)Ordered By: Etta Nayak on 05-18-2024 Wet Prep [facility] Treponema sp Ab Ql (S)Ordere d By: Etta Nayak on 05-18-2024 Syphilis Total Antibody Non-Reactive [facility] Urinalysis, Completeon 05-18 BACTERIA RARE Normal None Seen [facility] Comment on above: Order Comment: CLEAN CATCH Performed By: #### M 100.0500, L400.0001, L400.7600, M8200.2203 #### [facility] [address] [place], [address] Mucus Ql (Urine sed) RARE Normal [facility] Comment on above: Order Comment: CLEAN CATCH Performed By: #### M 100.0500, L400.0001, L400.7600, M8200.2203 #### [facility] [address] [place], [address] EPI,SQUAMOUS 5-10 SEEN Normal 5-10 [facility] Comment on above: Order Comment: CLEAN CATCH Performed By: #### M 100.0500, L400.0001, L400.7600, M8200.2203 #### [facility] [address] [place], [address] RBC 0-5 SEEN Normal 0-5 [facility] Comment on above: Order Comment: CLEAN CATCH Performed By: #### M 100.0500, L400.0001, L400.7600, M8200.2203 #### [facility] [address] [place], [address] WBC 0-5 SEEN Normal 0-5 [facility] Comment on above: Order Comment: CLEAN CATCH Performed By: #### M 100.0500, L400.0001, L400.7600, M8200.2203 #### [facility] [address] [place], [address] Urine blood detectionOrdered By: Etta Nayak on 05-18-2024 Urine Occult Blood 10 /ul High Negative [facility] Urine clarityOrdered By: Estrella Nayak on 05-18-2024 Clarity (U) Sl. Cloudy Clear [facility] Urine color determinationOrd ered By: Etta Nayak on 05-18-2024 Color (U) Yellow Yellow [facility] Urine leukocyte esterase det ection by dipstickOrdered By: Etta Nayak on 05-18-2024 Leukocyte esterase Test strip Ql (U) 25 /ul High Negative [facility] Urine pHOrdered By: Etta espinoza on 05-18-2024 pH (U) 5.0 [pH] 5.0 - 8.0 [facility] Urine testOrdered By: Etta Nayak on 05-18-2024 HCG ( test) Ql (U) Negative [facility] Comment on above: Very dilute urine sp ecimens, as indicated by a low specificgravity, may not contain auto claim representative levels of hCG. If is still suspected, a first morning urinespecimen should be collected 48 hours later and tested. Urine specific gravity measu rementOrdered By: Etta aNyak on 05-18-2024 Specific gravity (U) [Rel density] 1.025 1.002-1.030 [facility] Urobilinogen Ql (U)Ordered B y: Etta Nayak on 05-18-2024 Urine Urobilinogen Normal mg/dl Normal [facility] Wet Prep Trichamonason 05-18 WP Motile Trichomonas NONE SEEN WBC RARE Normal [facility] Comment on above: Performed By: #### L 100.0100, L700.6800, L500.4050 #### [facility] [address] [place], [address] White blood cell countOrdere d By: Etta Nayak on 05-18-2024 Urine WBC 0-5 SEEN /hpf 0-5 [facility] HIV 1/0/2 SCREEN 4TH GENon 1 HIV1/0/2 SCREEN TNP Normal . [facility] Comment on above: Order Comment: Speci men Comment: A duplicate report has been generateddue to demographicSpecimen Comment: updates. Result Comment: Test not performed. Insufficient specimen to perform or complete analysis. Contacted Elizabeth Diony on 04/13/24. Performed By: #### L 100.0100, L700.6800, L500.4050 #### [facility] [address] [place], [address] L3300.0940on 04-13-2024 VIT D,25 HYDROX 39.9 ng/mL Normal 30.0-100.0 [facility] Comment on above: Order Comment: Speci men Comment: A duplicate report has been generateddue to demographicSpecimen Comment: updates. Result Comment: Soha min D deficiency has been defined by the [employer] and an Endocrine Society practice guideline as a level of serum 25-OH vitamin D less than 20 ng/mL (1,2). The Endocrine Society went on to further define vitamin D insufficiency as a level between 21 and 29 ng/mL (2). 1. IOM ([employer]). 2010. Dietary reference intakes for calcium and D. [place]: The National Academies Press. 2. Rolo JARA, Jose A CAIN, Francisco SOLIS, et al. Evaluation, treatment, and prevention of vitamin D deficiency: an Endocrine Society clinical practice guideline. JCEM. 2010; 96(7):1911-30. AMENDED REPORT 04/13/24 1509 VIT D,25 previously reported as: TEST RESULTS LIMITS Vitamin D, 25-Hydroxy 39.9 ng/mL 30.0-100.0 Vitamin D deficiency has been defined by the [employer] and an Endocrine Society practice guideline as a level of serum 25-OH vitamin D less than 20 ng/mL (1,2). The Endocrine Society went on to further define vitamin D insufficiency as a level between 21 and 29 ng/mL (2). 1. IOM ([employer]). 2010. Dietary reference intakes for calcium and D. [place]: The National Academies Press. 2. Rolo JARA, Jose A CAIN, Francisco SOLIS, et al. Evaluation, treatment, and prevention of vitamin D deficiency: an Endocrine Society clinical practice guideline. JCEM. 2010; 96(7):1911-30. TESTING PERFORMED AT [facility]. ORIGINAL REPORT ON FILE IN LAB CONTAINS ADDITIONAL TEST SITE INFORMATION. Performed By: #### L 100.0100, L700.6800, L500.4050 #### [facility] [address] [place], [place], [address] L5000.0011on 04-13-2024 Syphilis Abs Non-Reactive Normal Non Reactive [facility] Comment on above: Order Comment: Speci men Comment: A duplicate report has been generateddue to demographicSpecimen Comment: updates. Performed By: #### L 100.0100, L700.6800, L500.4050 #### [facility] [address] [place], [address] L5000.0012on 04-13-2024 Cobalamin (Vitamin B12) [Mass/Vol] 583 pg/mL Normal 232-1245 [facility] Comment on above: Order Comment: Speci men Comment: A duplicate report has been generateddue to demographicSpecimen Comment: updates. Result Comment: Perf ormed at: [address] [id number] Salvage Mechanic: Virgilio Toro PhD, Phone: [phone] AMENDED REPORT 04/13/24 5549 Vitamin B12 previously reported as: TEST RESULTS LIMITS Vitamin B12 583 pg/mL 232-1245 TESTING PERFORMED AT [facility]. ORIGINAL REPORT ON FILE IN LAB CONTAINS ADDITIONAL TEST SITE INFORMATION. Performed By: #### L 100.0100, L700.6800, L500.4050 #### [facility] [address] [place], [address] CBC W/Diff, Automatedon - Absolute Lymph 2.43 X10 3/uL Normal 0.83-4.51 [facility] Comment on above: Performed By: #### L 100.0100, L700.6800, L500.4050 #### [facility] [address] [place], [address] Absolute Neut 4.1 X10 3/uL Normal 2.0-7.7 [facility] Comment on above: Performed By: #### L 100.0100, L700.6800, L500.4050 #### [facility] [address] [place], [address] Basophils/100 WBC (Bld) 0.9 % Normal 0-1 [facility] Comment on above: Performed By: #### L 100.0100, L700.6800, L500.4050 #### [facility] [address] [place], [address] Eosinophils/100 WBC (Bld) 4.3 % Normal 0-5 [facility] Comment on above: Performed By: #### L 100.0100, L700.6800, L500.4050 #### [facility] [address] [place], [address] Erythrocyte distribution width (RBC) [Ratio] 12.4 % Normal 11.6-14.6 [facility] Comment on above: Performed By: #### L 100.0100, L700.6800, L500.4050 #### [facility] [address] [place], [address] Hematocrit (Bld) [Volume fraction] 41.5 % Normal 37-47 [facility] Comment on above: Performed By: #### L 100.0100, L700.6800, L500.4050 #### [facility] [address] [place], [address] Hemoglobin (Bld) [Mass/Vol] 13.6 g/dL Normal 12.0-15.0 [facility] Comment on above: Performed By: #### L 100.0100, L700.6800, L500.4050 #### [facility] [address] [place], [address] IG% 0.300 Normal 0.0-0.9 [facility] Comment on above: Result Comment: IG% - Immature Granulocytes (promyelocytes, myelocytes and metamyelocytes) > 1% indicates that a LEFT SHIFT is Present. Performed By: #### L 100.0100, L700.6800, L500.4050 #### [facility] [address] [place], [address] Lymphocytes/100 WBC (Bld) 32.0 % Normal 19-41 [facility] Comment on above: Performed By: #### L 100.0100, L700.6800, L500.4050 #### [facility] [address] [place], [address] MCH (RBC) [Entitic mass] 29.4 pg Normal 27.0-32.0 [facility] Comment on above: Performed By: #### L 100.0100, L700.6800, L500.4050 #### [facility] [address] [place], [address] MCHC (RBC) [Mass/Vol] 32.8 g/dL Normal 32-36 [facility] Comment on above: Performed By: #### L 100.0100, L700.6800, L500.4050 #### [facility] [address] [place], [address] MCV (RBC) [Entitic vol] 89.8 fL Normal 81-99 [facility] Comment on above: Performed By: #### L 100.0100, L700.6800, L500.4050 #### [facility] [address] [place], [address] Monocytes/100 WBC (Bld) 8.7 % Normal 0-10 [facility] Comment on above: Performed By: #### L 100.0100, L700.6800, L500.4050 #### [facility] [address] [place], [address] Neutrophils/100 WBC (Bld) 53.8 % Normal 47-70 [facility] Comment on above: Performed By: #### L 100.0100, L700.6800, L500.4050 #### [facility] [address] [place], [address] Nucleated RBC (Bld) [#/Vol] 0 10*3/uL Normal 0-5 [facility] Comment on above: Performed By: #### L 100.0100, L700.6800, L500.4050 #### [facility] [address] [place], [address] Platelet mean volume (Bld) [Entitic vol] 10.6 fL Normal 6.2-12.0 [facility] Comment on above: Performed By: #### L 100.0100, L700.6800, L500.4050 #### [facility] [address] [place], [address] Platelets (Bld) [#/Vol] 412 10*3/uL Normal 150-450 [facility] Comment on above: Performed By: #### L 100.0100, L700.6800, L500.4050 #### [facility] [address] [place], [address] RBC (Bld) [#/Vol] 4.62 10*6/uL Normal 4.2-5.4 [facility] Comment on above: Performed By: #### L 100.0100, L700.6800, L500.4050 #### [facility] [address] [place], [address] RDW SD 40.8 fl Normal 35.1-43.9 [facility] Comment on above: Performed By: #### L 100.0100, L700.6800, L500.4050 #### [facility] [address] [place], [address] WBC (Bld) [#/Vol] 7.6 10*3/uL Normal 4.4-11.0 [facility] Comment on above: Performed By: #### L 100.0100, L700.6800, L500.4050 #### [facility] [address] [place], [address] Comprehensive Metabolic Prof ilon 04-06-2024 Albumin [Mass/Vol] 4.1 g/dL Normal 3.2-5.0 [facility] Comment on above: Performed By: #### L 100.0100, L700.6800, L500.4050 #### [facility] [address] [place], [address] Albumin/Globulin [Mass ratio] 1.1 {ratio} Normal 0.9-2.4 [facility] Comment on above: Performed By: #### L 100.0100, L700.6800, L500.4050 #### [facility] [address] [place], [address] ALK P 75 U/L Normal 45-117 [facility] Comment on above: Performed By: #### L 100.0100, L700.6800, L500.4050 #### [facility] [address] [place], [address] ALT [Catalytic activity/Vol] 33 U/L Normal 13-56 [facility] Comment on above: Performed By: #### L 100.0100, L700.6800, L500.4050 #### [facility] [address] [place], [address] AST [Catalytic activity/Vol] 21 U/L Normal 15-37 [facility] Comment on above: Performed By: #### L 100.0100, L700.6800, L500.4050 #### [facility] [address] [place], [address] Bilirubin [Mass/Vol] 0.50 mg/dL Normal 0.20-1.00 [facility] Comment on above: Result Comment: For patients on eltrombopag therapy, use of Dimension [place] TBIL is not recommended. Performed By: #### L 100.0100, L700.6800, L500.4050 #### [facility] [address] [place], [address] BUN/CRE 19.1 RATIO Normal 10-20 [facility] Comment on above: Performed By: #### L 100.0100, L700.6800, L500.4050 #### [facility] [address] [place], [address] CA,Total 9.4 mg/dL Normal 8.5-10.1 [facility] Comment on above: Performed By: #### L 100.0100, L700.6800, L500.4050 #### [facility] [address] [place], [address] Chloride [Moles/Vol] 105 mmol/L Normal 98-107 [facility] Comment on above: Performed By: #### L 100.0100, L700.6800, L500.4050 #### [facility] [address] [place], [address] CO2 [Moles/Vol] 23.0 mmol/L Normal 21.0-32.0 [facility] Comment on above: Performed By: #### L 100.0100, L700.6800, L500.4050 #### [facility] [address] [place], [address] Creatinine [Mass/Vol] 0.73 mg/dL Normal 0.55-1.02 [facility] Comment on above: Result Comment: The validity of the calculated GFR GFRAA in patients over 70 years has not been determined. Clinical correlation is essential. Performed By: #### L 100.0100, L700.6800, L500.4050 #### [facility] [address] [place], [address] EST GFR - AA 119 mL/min Normal >60 [facility] Comment on above: Result Comment: Afri can Bangl[place] GFR Calc Performed By: #### L 100.0100, L700.6800, L500.4050 #### [facility] [address] [place], [address] GAP 7 Normal 5-15 [facility] Comment on above: Performed By: #### L 100.0100, L700.6800, L500.4050 #### [facility] [address] [place], [address] GFR/1.73 sq M.predicted among non-blacks MDRD (S/P/Bld) [Vol rate/Area] 99 mL/min/{1.73_m2} Normal >60 [facility] Comment on above: Result Comment: Non- GFR Calc Performed By: #### L 100.0100, L700.6800, L500.4050 #### [facility] [address] [place], [address] Globulin (S) [Mass/Vol] 3.8 g/dL Normal 2.2-4.2 [facility] Comment on above: Performed By: #### L 100.0100, L700.6800, L500.4050 #### [facility] [address] [place], [address] Glucose [Mass/Vol] 87 mg/dL Normal 74-106 [facility] Comment on above: Performed By: #### L 100.0100, L700.6800, L500.4050 #### [facility] [address] [place], [address] Potassium [Moles/Vol] 4.0 mmol/L Normal 3.5-5.1 [facility] Comment on above: Performed By: #### L 100.0100, L700.6800, L500.4050 #### [facility] [address] [place], [address] Sodium [Moles/Vol] 135 mmol/L Low 136-145 [facility] Comment on above: Performed By: #### L 100.0100, L700.6800, L500.4050 #### [facility] [address] [place], [address] T PROT 7.9 g/dL Normal 6.4-8.2 [facility] Comment on above: Performed By: #### L 100.0100, L700.6800, L500.4050 #### [facility] [address] [place], [address] Urea nitrogen [Mass/Vol] 14 mg/dL Normal 7-18 [facility] Comment on above: Performed By: #### L 100.0100, L700.6800, L500.4050 #### [facility] [address] [place], [address] Ferritinon 04-06-2024 Ferritin [Mass/Vol] 5 ng/mL Low 8-252 [facility] Comment on above: Performed By: #### L 100.0100, L700.6800, L500.4050 #### [facility] [address] [place], [address] Hemoglobin A1con 04-06-2024 HbA1c (Bld) [Mass fraction] 5.2 % Normal 3.8-5.6 [facility] Comment on above: Result Comment: Norm al < 5.7 % Prediabetic 5.7 - 6.4 % Diabetic >or= 6.5 % Please note range changes. Performed By: #### L 100.0100, L700.6800, L500.4050 #### [facility] [address] [place], [address] Hepatitis Panel Acuteon 03-22 HCV Interpretat Normal [facility] Comment on above: Result Comment: NOT SENT TO [facility]. WILL NEED REDRAWN IF STILL WANTED Performed By: #### L 100.0100, L700.6800, L500.4050 #### [facility] [address] [place], [address] HEP B CORE,IgM Normal [facility] Comment on above: Result Comment: NOT SENT TO [facility]. WILL NEED REDRAWN IF STILL WANTED Performed By: #### L 100.0100, L700.6800, L500.4050 #### [facility] [address] [place], [address] HEP B SURF AG Normal [facility] Comment on above: Result Comment: NOT SENT TO [facility]. WILL NEED REDRAWN IF STILL WANTED Performed By: #### L 100.0100, L700.6800, L500.4050 #### [facility] [address] [place], [address] HEP C VIRUS AB Normal [facility] Comment on above: Result Comment: NOT SENT TO [facility]. WILL NEED REDRAWN IF STILL WANTED Performed By: #### L 100.0100, L700.6800, L500.4050 #### [facility] [address] [place], [address] HEPATITIS A-IgM Normal [facility] Comment on above: Result Comment: NOT SENT TO [facility]. WILL NEED REDRAWN IF STILL WANTED Performed By: #### L 100.0100, L700.6800, L500.4050 #### [facility] [address] [place], [address] Lipid Profileon 04-06-2024 Cholesterol [Mass/Vol] 148 mg/dL Normal 200 [facility] Comment on above: Result Comment: <200 mg/dL Desirable 200-240 mg/dL Borderline >240 mg/dL High Risk Performed By: #### L 100.0100, L700.6800, L500.4050 #### [facility] [address] [place], [address] Cholesterol in HDL [Mass/Vol] 53 mg/dL Normal [facility] Comment on above: Result Comment: The drugs N-Acetylcysteine and Metamizole may falsely depress this assay. Reference Range HDL <40 mg/dL Low HDL Cholesterol HDL >or= 60 mg/dL High HDL Cholesterol Performed By: #### L 100.0100, L700.6800, L500.4050 #### [facility] [address] [place], [address] Cholesterol in LDL [Mass/Vol] 66 mg/dL Normal 0-130 [facility] Comment on above: Performed By: #### L 100.0100, L700.6800, L500.4050 #### [facility] [address] [place], [address] Cholesterol in VLDL [Mass/Vol] 29 mg/dL Normal 5-40 [facility] Comment on above: Performed By: #### L 100.0100, L700.6800, L500.4050 #### [facility] [address] [place], [address] Triglyceride [Mass/Vol] 147 mg/dL Normal [facility] Comment on above: Result Comment: The drugs N-Acetylcysteine and Metamizole may falsely depress this assay. Serum Triglycerides Reference Interval Normal <150 mg/dL Borderline high 150 - 199 mg/dL High 200 - 499 mg/dL Very High > or = 500 mg/dL Performed By: #### L 100.0100, L700.6800, L500.4050 #### [facility] [address] [place], [address] Magnesiumon 04-06-2024 Magnesium [Mass/Vol] 2.2 mg/dL Normal 1.6-2.6 [facility] Comment on above: Performed By: #### L 100.0100, L700.6800, L500.4050 #### [facility] [address] [place], [address] Thyroid Stim Hormone (TSH)on 04-06-2024 TSH 1.700 uIU/mL Normal 0.358-3.740 [facility] Comment on above: Performed By: #### L 100.0100, L700.6800, L500.4050 #### [facility] [address] [place], [address] Chest PA and Lateralon 03-24 Chest PA and Lateral [facility] [address] [place] [address] Chest PA and Lateral MR#: [id number] Acct: [id number] Name: ANDREW MENA Rep #: [id number] : 1995 F 29 From: Jose Miguel Willis MD PCP: Dr. Nanci Corral MD Status: [facility] ER Study: Chest PA and Lateral Date of Exam: 03/24/24 Exam# [id number] Ordering Dr: Joe Hartmann DO [id number] STUDY: X-RAY CHEST REASON FOR EXAM: Female, 29 years old. Dyspnea TECHNIQUE: PA and lateral views of the chest. COMPARISON: 12/14/2018 FINDINGS: The lungs are clear and expanded. There is no demonstrated pleural abnormality. Normal size heart. Normal mediastinum and michelle. Normal visualized pulmonary arteries. Normal visualized aortic arch and descending thoracic aorta. Normal visualized thoracic spine. Normal visualized ribs, clavicles, and shoulders. There is no demonstrated abnormality of the visualized soft tissue structures of the upper abdomen. RAD/Chest PA and Lateral IMPRESSION: Normal x-ray examination of the chest. Electronically Signed: Jose Miguel Willis MD at 9:21 EDT , CC: Dr. Nanci Corral MD; Dr. Joe Hartmann DO [employer] Systems Rep[employer]r: Signed Normal [facility] Emergency Department Summary on 03-24-2024 Emergency Department Summary [facility] Records Department [address] [place] [address] Emergency Department Summary 03/24/24 MR#: [id number] Acct: [id number] Name: ANDREW MENA Rep #: [id number] : 1995 29 From: Joe Hartmann DO PCP: Dr. Nanci Corral MD Status:DEP ER Location: ED HPI History of Present Illness Chief Complaint: General Illness Informant: patient Onset/Context/Timing Onset: Today Context: Gradual Onset Timing: Continuous Quality: Wheezing Location: Chest Worsened by: Smoking Relieved by: Nothing Narrative Narrative: Patient presents with shortness of breath and wheezing. Patient states she also feels like she may have a urinary tract infection or bacterial vaginosis. Patient states her breathing became worse today. Patient states it is gradually gotten worse. Patient states she can feel herself wheezing. Patient states that it is worse when she smokes. Patient denies any fevers or chills. Patient denies any cough. Patient admits to some nausea but denies any vomiting. Patient denies any back pain. [facility] Medical History Alcohol withdrawal Obesity (BMI 30-39.9) Vaginal discharge Seasonal allergies Asthma Home Medications ???Medication ???Instructions ???Recorded ???Last Taken ???Type albuterol sulfate 90 mcg/actuation 1 inh inhalation Q6H PRN shortness 02/13/21 08/11/22 Rx aerosol inhaler of breath or wheezing #8.5 grams loratadine 10 mg tablet (Allergy 10 mg PO DAILY Check with primary 08/18/22 08/18/22 History Relief (loratadine)) doctor albuterol sulfate 90 mcg/actuation 1 - 2 puff inhalation Q4H PRN PRN 02/29/24 Unknown Rx aerosol inhaler (Ventolin HFA) Wheezing ##1 cephalexin 500 mg capsule 500 mg PO Q12 #14 CAPSULES 02/29/24 Unknown Rx fluconazole 150 mg tablet 150 mg PO X1 PRN yeast 1 dose #2 02/29/24 Unknown Rx tabs loratadine 10 mg tablet (Claritin) 10 mg PO DAILY #30 tabs 02/29/24 Unknown Rx albuterol sulfate 90 mcg/actuation 1 - 2 puff inhalation Q4H PRN PRN 03/24/24 Unknown Rx aerosol inhaler (Ventolin HFA) Wheezing ##1 fluconazole 150 mg tablet 150 mg PO Q3D 2 doses #2 tabs 03/24/24 Unknown Rx metronidazole 500 mg tablet 500 mg PO BID 7 days #14 tabs 03/24/24 Unknown Rx Allergy/AdvReac Type Severity Reaction Status Date / Time penicillin G Allergy Mild Hives Verified 03/24/24 07:46 venom-honey bee (bee venom Allergy Swelling Verified 03/24/24 07:46 (honey bee)) Family History Grandmother Asthma Arthritis Surgical History History of wisdom tooth extraction Social History Smoking Status: Current some day smoker tobacco type: cigarettes alcohol intake: never substance use type: does not use what type of physical activity do you participate in: walking frequency: 5-6 times per week ROS ROS ED Constitutional Constitutional ED: Denies chills or fever(s) Eyes Eyes: Denies blurry vision or change in vision ENT ENT ED: Denies rhinorrhea or sore throat Cardiovascular Cardiovascular: Denies chest pain or palpitations Respiratory/Chest Respiratory/Chest: Reports dyspnea; Denies cough Gastrointestinal Gastrointestinal: Reports nausea; Denies vomiting Genitourinary Genitourinary ED: Reports dysuria; Denies hematuria Musculoskeletal Musculoskeletal: Denies back pain or neck pain Integumentary Denies abscess or rash Neurologic Neurologic: Denies headache(s) or weakness Allergic/Immunologic Allergic/Immunologic ED: Denies mouth swelling or urticaria EXAM Physical Exam Const Vital Signs: 03/24/24 07:47 03/24/24 08:49 Temperature 98.2 F Temperature Source Oral Pulse Rate 109 H 98 Respiratory Rate 16 16 Respiratory Pattern Normal Blood Pressure 123/82 H Blood Pressure Mean 95 Pulse Ox 98 Oxygen Delivery Method Room Air Positive well nourished and well developed General Appearance ED: well developed and NAD HEENT Reports moist mucous membranes Neck supple and no JVD Resp normal respiratory effort Auscultation: wheezes scattered wheezes Cardio regular rate and regular rhythm GI non-tender and non-distended Palpation: soft Neuro oriented x3, CN's II-XII intact bilaterally and no sensory deficits noted Sensorium / Orientation: alert Motor Exam: strength 5/5 throughout Psych mental status grossly normal MDM MDM MDM Narrative Medical decision making narrative: Differential diagnosis includes pneumonia, reactive airway disease, urinary tract infection, sexually transmitted infection, and viral infection. Chest x-ray will be obtained to assess for pneumonia and pneum (more content not included)... Normal [facility] M100.678on 03-24-2024 M100.678 Pending SARS-CoV-2 (COVID 19) Negative INFLUENZA A Negative INFLUENZA B Negative RSV PCR Negative Normal [facility] Comment on above: Performed By: #### L 100.0100, L700.6800, L500.4050 #### [facility] [address] [place], [address] M8200.2203on 03-24-2024 M8200.2203 Pending Chlamydia Trachomatis PCR NEGATIVE for Chlamydia trachomatis N. gonorrhoeae PCR Negative for N. gonorrhoeae Normal [facility] Comment on above: Performed By: #### L 100.0100, L700.6800, L500.4050 #### [facility] [address] [place], [address] Urinalysis, Completeon 03-24 BACTERIA 1+ /hpf Normal None Seen [facility] Comment on above: Order Comment: CLEAN CATCH Performed By: #### L 100.0100, L700.6800, L500.4050 #### [facility] [address] [place], [address] EPI,SQUAMOUS 0-5 SEEN Normal 5-10 [facility] Comment on above: Order Comment: CLEAN CATCH Performed By: #### L 100.0100, L700.6800, L500.4050 #### [facility] [address] [place], [address] Mucus Ql (Urine sed) 0 SEEN Normal [facility] Comment on above: Order Comment: CLEAN CATCH Performed By: #### L 100.0100, L700.6800, L500.4050 #### [facility] [address] [place], [address] RBC 0 SEEN Normal 0-5 [facility] Comment on above: Order Comment: CLEAN CATCH Performed By: #### L 100.0100, L700.6800, L500.4050 #### [facility] [address] [place], [address] WBC 0 SEEN Normal 0-5 [facility] Comment on above: Order Comment: CLEAN CATCH Performed By: #### L 100.0100, L700.6800, L500.4050 #### [facility] [address] [place], [address] Emergency Department Summary on 02-29-2024 Emergency Department Summary [facility] Records Department [address] [place] [address] Emergency Department Summary 02/29/24 MR#: [id number] Acct: [id number] Name: ANDREW MENA Rep #: [id number] : 1995 29 From: Tavo Alvarenga PCP: Dr. Nanci Corral MD Status:DEP ER Location: ED HPI History of Present Illness Chief Complaint: Complaint Informant: patient Narrative Narrative: 1 week history dysuria along with vaginal discharge. No fevers or back pain. She had partner reported her positive for gonorrhea. She has had STDs in the past. She cannot recall her last menstrual period. She states she had a miscarriage 2 weeks ago with bleeding that subsided. She states she was 5 to 6 weeks . She moved here from the [facility]. Allergies penicillin causing hives. Denies abdominal or pelvic pain. In addition, states she needs her refill of her inhaler and Claritin for seasonal allergies. Prior similar symptoms: Yes PFSH PFS Medical History Alcohol withdrawal Obesity (BMI 30-39.9) Vaginal discharge Seasonal allergies Asthma Home Medications ???Medication ???Instructions ???Recorded ???Last Taken ???Type albuterol sulfate 90 mcg/actuation 1 inh inhalation Q6H PRN shortness 02/13/21 08/11/22 Rx aerosol inhaler of breath or wheezing #8.5 grams loratadine 10 mg tablet (Allergy 10 mg PO DAILY Check with primary 08/18/22 08/18/22 History Relief (loratadine)) doctor albuterol sulfate 90 mcg/actuation 1 - 2 puff inhalation Q4H PRN PRN 02/29/24 Unknown Rx aerosol inhaler (Ventolin HFA) Wheezing ##1 cephalexin 500 mg capsule 500 mg PO Q12 #14 CAPSULES 02/29/24 Unknown Rx fluconazole 150 mg tablet 150 mg PO X1 PRN yeast 1 dose #2 02/29/24 Unknown Rx tabs loratadine 10 mg tablet (Claritin) 10 mg PO DAILY #30 tabs 02/29/24 Unknown Rx Allergy/AdvReac Type Severity Reaction Status Date / Time penicillin G Allergy Mild Hives Verified 02/29/24 15:26 venom-honey bee (bee venom Allergy Swelling Verified 02/29/24 15:26 (honey bee)) Family History Grandmother Asthma Arthritis Surgical History History of wisdom tooth extraction Social History Smoking Status: Current some day smoker tobacco type: cigarettes alcohol intake: never substance use type: does not use what type of physical activity do you participate in: walking frequency: 5-6 times per week ROS ROS ED Constitutional Constitutional ED: Denies chills, fever(s) or sweats Eyes Eyes: Denies change in vision ENT ENT ED: Denies dysphagia or sore throat Cardiovascular Cardiovascular: Denies chest pain, leg edema, palpitations or racing heartbeat Respiratory/Chest Respiratory/Chest: Denies cough, dyspnea or dyspnea on exertion Gastrointestinal Gastrointestinal: Denies abdominal pain, diarrhea, nausea or vomiting Genitourinary Genitourinary ED: Reports dysuria and other Details: Vaginal discharge ; Denies hematuria or urinary frequency Musculoskeletal Musculoskeletal: Denies back pain, extremity pain or neck pain Integumentary Denies rash or wounds Neurologic Neurologic: Denies headache(s), paresthesias or weakness EXAM Physical Exam Const Vital Signs: 02/29/24 15:24 02/29/24 19:24 Temperature 97.1 F L Temperature Source Temporal Pulse Rate 106 H 90 Respiratory Rate 16 18 Blood Pressure 122/78 H 116/80 Blood Pressure Mean 92 92 Pulse Ox 97 Oxygen Delivery Method Room Air Positive well nourished and well developed General Appearance ED: well developed and NAD HEENT Reports moist mucous membranes normocephalic and atraumatic Eyes EOMs intact bilaterally and conjunctivae normal General Eye ED: Yes normal appearance of both eyes Neck no lymphadenopathy and supple General: Negative for tenderness Chest Wall Chest: Negative for tenderness Resp normal respiratory effort and normal air movement Effort and Inspection: symmetric chest movement; Negative for respiratory distress Cardio regular rate, regular rhythm and no murmurs Peripheral Pulses: pulses 2+ throughout GI normal to inspection, nondistended, normoactive bowel sounds and non-tender Palpation: Negative for guarding or rebound tenderness present Narrative: Declines pelvic exam. Back/Spine no CVA tenderness and no thoracic nor lumbar tenderness Extremity normal to inspection General Extremety ED: Negative for edema or tenderness General Extremity: Negative for edema Neuro oriented x3 and no sensory deficits noted Sensorium / Orientation: awake and alert Skin no rashes or lesions noted and no wounds MDM MDM MDM Narra (more content not included)... Normal [facility] M8200.2203on 02-29-2024 M8200.2203 Pending Chlamydia Trachomatis PCR NEGATIVE for Chlamydia trachomatis N. gonorrhoeae PCR Negative for N. gonorrhoeae Normal [facility] Comment on above: Performed By: #### L 100.0100, L700.6800, L500.4050 #### [facility] [address] [place], [address] ,Urineon 02-29-2024 Beta HCG ( test) Ql (U) Positive Abnormal [facility] Comment on above: Order Comment: CLEAN CATCH Result Comment: RESU LTS CALLED TO ALBER HOWE ENTERER 02/29/241950 Eugene Viramontes. REPORT READ BACK BY SAME . TEST is *POSITIVE* Performed By: #### L 400.7600, L400.0001 #### [facility] [address] [place], [address] Urinalysis, Completeon 02-28 AMORPHOUS 1+ URATE Normal [facility] Comment on above: Order Comment: CLEAN CATCH Performed By: #### L 400.7600, L400.0001 #### [facility] [address] [place], [address] EPI,SQUAMOUS 0-5 SEEN Normal 5-10 [facility] Comment on above: Order Comment: CLEAN CATCH Performed By: #### L 400.7600, L400.0001 #### [facility] [address] [place], [address] RBC 0-5 SEEN Normal 0-5 [facility] Comment on above: Order Comment: CLEAN CATCH Performed By: #### L 400.7600, L400.0001 #### [facility] [address] [place], [address] WBC 10-25 SEEN Normal 0-5 [facility] Comment on above: Order Comment: CLEAN CATCH Performed By: #### L 400.7600, L400.0001 #### [facility] [address] [place], [address] BACTERIA 0 SEEN Normal None Seen [facility] Comment on above: Order Comment: CLEAN CATCH Performed By: #### L 400.7600, L400.0001 #### [facility] [address] [place], [address] Mucus Ql (Urine sed) 0 SEEN Normal [facility] Comment on above: Order Comment: CLEAN CATCH Performed By: #### L 400.7600, L400.0001 #### [facility] [address] [place], [address] Telephone Encounteron 2023 [employer] Vice President Authentication Interface Message Text NO SHOW , OB FOLLOW-UP, AND NEW OB APPOINTMENTS Patient appeared on /no show report Patient NO SHOWED FOLLOW UP appointment on 02/24/24 After chart review and TV note from 02/16/24 ultrasound was diagnostic of failed . No call placed to pt. Closing encounter Normal [facility] Telephone Encounteron 2023 University Relations Vice President Authentication Interface Message Text I have made multiple calls to patient since 02/11/2024 ultrasound was diagnostic of failed . I have left multiple voice mails. She chose not to come to see me right after the radiologist explained her diagnosis. Reviewing chart I see that she presented to [facility] 02/11/2024 but chose to leave before being seen Luis Felipe Marie MD Normal [facility] Telephone Encounteron 2023 University Relations Vice President Authentication Interface Message Text 02/11/2024 ultrasound diagnostic of failed early . Pt spoke with radiologist, was given emergency appointment with me for yesterday afternoon, and was instructed to walk over to my office. She chose instead to leave without being seen. I attempted to call her this AM and left message on her voice mail to please call me this AM Luis Felipe Marie MD Normal [facility] US 1ST TRI/OB TRANSVAG (MINOO) on 02-11-2024 US 1ST TRI/OB TRANSVAG (MINOO) EXAMINATION: US 1ST TRI/OB TRANSVAG (MINOO) 02/11/2024 02:03 PM CLINICAL HISTORY: threatened ASSOCIATED DIAGNOSIS: Threatened (HCC) ORDERING PROVIDER: LUIS FELIPE MARIE TECHNOLOGISTS NOTE: . GS vis. No pole or YS seen. Rt ov CL. Lt ov appears wnl. No FF or adnexal mass seen. Case shown to Dr. Smith COMPARISON: US 1ST TRI/OB TRANSVAG (MINOO) 02/03/2024, 1:36 PM US 1ST TRI/OB TRANSVAG (MINOO) 01/17/2024, 10:59 AM TECHNIQUE: Ultrasound real time scan with image documentation of the first trimester gravid uterus and ovaries was performed using both trans abdominal and transvaginal approach. FINDINGS: There is a single intrauterine gestation sac, which corresponds to an estimated gestational age of 6w6d+/-0w4d (the gestation sac measured 1.9 cm on 02/03/2024, measured 0.7 cm on 01/17/2024). No yolk sac or crown-rump length was identified (crown-rump length measured 0.6 cm on 02/03/2024 with estimated gestation age of 6 weeks, 3 days). cardiac activity is not observed. Appropriate shape of gestational sac. The placenta is not defined yet due to the early stage of the . Multiple nabothian cysts in the cervix. Trace fluid in the cervical canal. Both ovaries are normal in size and appearance. The corpus luteum of resides within the right ovary. No significant volume of free fluid. IMPRESSION: Single intrauterine gestation sac with no yolk sac, crown-rump length or cardiac activity. Overall these findings are diagnostic for failure. Dr. Janeth Smith discussed these findings with Dr. LUIS FELIPE MARIE at 3:02 PM EDT on 02/11/2024, via telephone. MACRO: None Normal [facility] US transabdominal and transv aginal for in first trimesteron 02-11-2024 EXAMINATION: US 1ST TRI/OB TRANSVAG (MINOO) 02/11/2024 02:03 PM CLINICAL HISTORY: threatened ASSOCIATED DIAGNOSIS: Threatened (HCC) ORDERING PROVIDER: LUIS FELIPE MARIE TECHNOLOGISTS NOTE: . GS vis. No pole or YS seen. Rt ov CL. Lt ov appears wnl. No FF or adnexal mass seen. Case shown to Dr. Smith COMPARISON: US 1ST TRI/OB TRANSVAG (MINOO) 02/03/2024, 1:36 PM US 1ST TRI/OB TRANSVAG (MINOO) 01/17/2024, 10:59 AM TECHNIQUE: Ultrasound real time scan with image documentation of the first trimester gravid uterus and ovaries was performed using both trans abdominal and transvaginal approach. FINDINGS: There is a single intrauterine gestation sac, which corresponds to an estimated gestational age of 6w6d+/-0w4d (the gestation sac measured 1.9 cm on 02/03/2024, measured 0.7 cm on 01/17/2024). No yolk sac or crown-rump length was identified (crown-rump length measured 0.6 cm on 02/03/2024 with estimated gestation age of 6 weeks, 3 days). cardiac activity is not observed. Appropriate shape of gestational sac. The placenta is not defined yet due to the early stage of the . Multiple nabothian cysts in the cervix. Trace fluid in the cervical canal. Both ovaries are normal in size and appearance. The corpus luteum of resides within the right ovary. No significant volume of free fluid. IMPRESSION: Single intrauterine gestation sac with no yolk sac, crown-rump length or cardiac activity. Overall these findings are diagnostic for failure. Dr. Janeth Smith discussed these findings with Dr. LUIS FELIPE MARIE at 3:02 PM EDT on 02/11/2024, via telephone. MACRO: None RADIOLOGY Janeth Smith M D - 02/11/2024 EXAMINATION: US 1ST TRI/OB TRANSVAG (MINOO) 02/11/2024 02:03 PM CLINICAL HISTORY: threatened ASSOCIATED DIAGNOSIS: Threatened (HCC) ORDERING PROVIDER: LUIS FELIPE MARIE TECHNOLOGISTS NOTE: . GS vis. No pole or YS seen. Rt ov CL. Lt ov appears wnl. No FF or adnexal mass seen. Case shown to Dr. Smith COMPARISON: US 1ST TRI/OB TRANSVAG (MINOO) 02/03/2024, 1:36 PM US 1ST TRI/OB TRANSVAG (MINOO) 01/17/2024, 10:59 AM TECHNIQUE: Ultrasound real time scan with image documentation of the first trimester gravid uterus and ovaries was performed using both trans abdominal and transvaginal approach. FINDINGS: There is a single intrauterine gestation sac, which corresponds to an estimated gestational age of 6w6d+/-0w4d (the gestation sac measured 1.9 cm on 02/03/2024, measured 0.7 cm on 01/17/2024). No yolk sac or crown-rump length was identified (crown-rump length measured 0.6 cm on 02/03/2024 with estimated gestation age of 6 weeks, 3 days). cardiac activity is not observed. Appropriate shape of gestational sac. The placenta is not defined yet due to the early stage of the . Multiple nabothian cysts in the cervix. Trace fluid in the cervical canal. Both ovaries are normal in size and appearance. The corpus luteum of resides within the right ovary. No significant volume of free fluid. IMPRESSION: Single intrauterine gestation sac with no yolk sac, crown-rump length or cardiac activity. Overall these findings are diagnostic for failure. Dr. Janeth Smith discussed these findings with Dr. LUIS FELIPE MARIE at 3:02 PM EDT on 02/11/2024, via telephone. MACRO: None [facility] Rad[facility] observation (narrative) [facility] US transabdominal and transv aginal for in first trimesterOrdered By: Janeth Smith on 02-11-2024 [facility] Work Phone: Addendum Noteon 02-09-2024 University Relations Vice President Authentication Interface Message Text Addended by: LUIS FELIPE MARIE on: 02/09/2024 09:38 AM Modules accepted: Orders Normal [facility] Telephone Encounteron 2023 University Relations Vice President Authentication Interface Message Text Pt under the impression she was to schedule US for tomorrow, no order in the system Please place if appropriate Normal [facility] University Relations Vice President Authentication Interface Message Text I called pt, explained HCG and ultrasound results Ultrasound 02/03/2024 FINDINGS: There is a single intrauterine . [place]-rump length measures 0.58 cm which corresponds to an estimated gestational age of 6w3d+/-0w3d. No cardiac activity is observed. An abnormal mildly distended yolk sac is present. On prior ultrasound dated 01/17/2024, a gestational sac with a yolk sac and no pole was identified yielding an estimated gestational age of 5w3d+/-0w3d. The placenta is not defined yet due to the early stage of the . A subchorionic hemorrhage is present along the margin of the gestational sac measuring 1.4 x 0.6 cm. Both ovaries are normal in size and appearance. The corpus luteum of resides within the right ovary. No significant volume of free fluid. IMPRESSION: 1. Findings highly suspicious for failed early . Close follow-up with serial quantitive beta HCG and ultrasound is recommended. 2. Small subchorionic hemorrhage. 01/17/2024 9:51 AM 01/27/2024 3:36 PM 02/04/2024 11:35 AM HCG 5,353.0 (H) 8,112.0 (H) 10,345.0 (H) Legend: (H) High I explained again that results are highly suggestive yet not diagnostic of loss. I will repeat Normal [facility] Telephone Encounteron 2023 University Relations Vice President Authentication Interface Message Text Situation: Patient calling for test results, missed Dr Yanez calls Background: N/A Assessment: N/A Recommendation: patients states that her voice mail box is no longer full Normal [facility] Telephone Encounteron 2023 University Relations Vice President Authentication Interface Message Text Patient returning your call and can be reached at [phone] Normal [facility] University Relations Vice President Authentication Interface Message Text I attempted to return patient's call two MORE times. Mailbox still full Luis Felipe Marie MD Normal [facility] University Relations Vice President Authentication Interface Message Text I attempted to return patient's call for the 3rd time. Voice mailbox still full. No answer Luis Felipe Marie MD Normal [facility] University Relations Vice President Authentication Interface Message Text I attempted to return patient's call twice. No answer. Voice mail box message full Luis Felipe Marie MD Normal The [employer] University Relations Vice President Authentication Interface Message Text Pt called requesting yesterday's HCG level result. Finalized result provided to pt. Pt has other questions regarding recent ultrasound and her HCG levels. Please return pt's phone call. Thanks. Future Appointments (next 10) Provider Department Center 02/24/2024 2:00 PM Luis Felipe Marie MD [facility] Obstetrics/Gynecology [facility] 02/24/2024 2:[address] [facility] Nutrition Obstetrics [facility] 03/09/2024 2:00 PM CORRECTION 30 MINUTE EXAMS [facility] [place] Normal [facility] HCG, QUANTITATIVEon 02-04-20 [place] [address].0 m[IU]/mL High NINF [facility] Interpretation and review of laboratory results Abnormal [facility] HCG 08163.0 mIU/mL High <5.0 [facility] [facility] Comment on above: Performed By: #### H #### [facility] [address] [place], [address] Patient Instructionson 02-02 University Relations Vice President Authentication Interface Message Text FINDINGS: There is a single intrauterine . [place]-rump length measures 0.58 cm which corresponds to an estimated gestational age of 6w3d+/-0w3d. No cardiac activity is observed. An abnormal mildly distended yolk sac is present. On prior ultrasound dated 01/17/2024, a gestational sac with a yolk sac and no pole was identified yielding an estimated gestational age of 5w3d+/-0w3d. The placenta is not defined yet due to the early stage of the . A subchorionic hemorrhage is present along the margin of the gestational sac measuring 1.4 x 0.6 cm. Both ovaries are normal in size and appearance. The corpus luteum of resides within the right ovary. No significant volume of free fluid. IMPRESSION: 1. Findings highly suspicious for failed early . Close follow-up with serial quantitive beta HCG and ultrasound is recommended. 2. Small subchorionic hemorrhage. I called pt, explained results and suspicion of failed Recommend repeat HCG She'll come to lab tomorrow Luis Felipe Marie MD Normal [facility] [facility] US 1ST TRI/OB TRANSVAG (MINOO) on 02-03-2024 US 1ST TRI/OB TRANSVAG (MINOO) EXAMINATION: US 1ST TRI/OB TRANSVAG (MINOO) 02/03/2024 01:30 PM CLINICAL HISTORY: threatened ASSOCIATED DIAGNOSIS: High risk , antepartum (HCC) ORDERING PROVIDER: LUIS FELIPE MARIE COMPARISON: US 1ST TRI/OB TRANSVAG (MINOO) 01/17/2024, 10:59 AM TECHNIQUE: Ultrasound real time scan with image documentation of the first trimester gravid uterus and ovaries was performed using both trans abdominal and transvaginal approach. FINDINGS: There is a single intrauterine . [place]-rump length measures 0.58 cm which corresponds to an estimated gestational age of 6w3d+/-0w3d. No cardiac activity is observed. An abnormal mildly distended yolk sac is present. On prior ultrasound dated 01/17/2024, a gestational sac with a yolk sac and no pole was identified yielding an estimated gestational age of 5w3d+/-0w3d. The placenta is not defined yet due to the early stage of the . A subchorionic hemorrhage is present along the margin of the gestational sac measuring 1.4 x 0.6 cm. Both ovaries are normal in size and appearance. The corpus luteum of resides within the right ovary. No significant volume of free fluid. IMPRESSION: 1. Findings highly suspicious for failed early . Close follow-up with serial quantitive beta HCG and ultrasound is recommended. 2. Small subchorionic hemorrhage. MACRO: Dr. Jerel Hollis discussed these findings with Dr. LUIS FELIPE MARIE at 1:55 PM EDT on 02/03/2024, via [employer] secure chat. The provider acknowledged receipt of the message. Normal [facility] US transabdominal and transv aginal for in first trimesteron 02-03-2024 EXAMINATION: US 1ST TRI/OB TRANSVAG (MINOO) 02/03/2024 01:30 PM CLINICAL HISTORY: threatened ASSOCIATED DIAGNOSIS: High risk , antepartum (HCC) ORDERING PROVIDER: LUIS FELIPE MARIE COMPARISON: US 1ST TRI/OB TRANSVAG (MINOO) 01/17/2024, 10:59 AM TECHNIQUE: Ultrasound real time scan with image documentation of the first trimester gravid uterus and ovaries was performed using both trans abdominal and transvaginal approach. FINDINGS: There is a single intrauterine . [place]-rump length measures 0.58 cm which corresponds to an estimated gestational age of 6w3d+/-0w3d. No cardiac activity is observed. An abnormal mildly distended yolk sac is present. On prior ultrasound dated 01/17/2024, a gestational sac with a yolk sac and no pole was identified yielding an estimated gestational age of 5w3d+/-0w3d. The placenta is not defined yet due to the early stage of the . A subchorionic hemorrhage is present along the margin of the gestational sac measuring 1.4 x 0.6 cm. Both ovaries are normal in size and appearance. The corpus luteum of resides within the right ovary. No significant volume of free fluid. IMPRESSION: 1. Findings highly suspicious for failed early . Close follow-up with serial quantitive beta HCG and ultrasound is recommended. 2. Small subchorionic hemorrhage. MACRO: Dr. Jerel Hollis discussed these findings with Dr. LUIS FELIPE MARIE at 1:55 PM EDT on 02/03/2024, via [employer] secure chat. The provider acknowledged receipt of the message. RADIOLOGY Neo Woodard MD - 02/03/2024 EXAMINATION: US 1ST TRI/OB TRANSVAG (MINOO) 02/03/2024 01:30 PM CLINICAL HISTORY: threatened ASSOCIATED DIAGNOSIS: High risk , antepartum (HCC) ORDERING PROVIDER: LUIS FELIPE MARIE COMPARISON: US 1ST TRI/OB TRANSVAG (MINOO) 01/17/2024, 10:59 AM TECHNIQUE: Ultrasound real time scan with image documentation of the first trimester gravid uterus and ovaries was performed using both trans abdominal and transvaginal approach. FINDINGS: There is a single intrauterine . [place]-rump length measures 0.58 cm which corresponds to an estimated gestational age of 6w3d+/-0w3d. No cardiac activity is observed. An abnormal mildly distended yolk sac is present. On prior ultrasound dated 01/17/2024, a gestational sac with a yolk sac and no pole was identified yielding an estimated gestational age of 5w3d+/-0w3d. The placenta is not defined yet due to the early stage of the . A subchorionic hemorrhage is present along the margin of the gestational sac measuring 1.4 x 0.6 cm. Both ovaries are normal in size and appearance. The corpus luteum of resides within the right ovary. No significant volume of free fluid. IMPRESSION: 1. Findings highly suspicious for failed early . Close follow-up with serial quantitive beta HCG and ultrasound is recommended. 2. Small subchorionic hemorrhage. MACRO: Dr. Jerel Hollis discussed these findings with Dr. LUIS FELIPE MARIE at 1:55 PM EDT on 02/03/2024, via [employer] secure chat. The provider acknowledged receipt of the message. [facility] Radiology Study observation (narrative) [facility] US transabdominal and transv aginal for in first trimesterOrdered By: Neo Woodard on 02-03-2024 [facility] Work Phone: Addendum Noteon 01-28-2024 University Relations Vice President Authentication Interface Message Text Addended by: TERESITA SCHWAB on: 01/28/2024 07:46 AM Modules accepted: Orders Normal [facility] Diabetes tracking panelOrder ed By: Keyur Woods on 01-28-2024 Average glucose Estimated from glycated hemoglobin (Bld) [Mass/Vol] 108 mg/dL [facility] HbA1c (Bld) [Mass fraction] 5.4 % 4.0 - 5.6 % [facility] Addendum Noteon 01-27-2024 University Relations Vice President Authentication Interface Message Text Addended by: SIMI SORIANO on: 01/27/2024 04:52 PM Modules accepted: Orders Normal [facility] HCG, QUANTITATIVEon 01-27-20 24 HCG 8112.0 mIU/mL High <5.0 [facility] Comment on above: Performed By: #### NAOMI North ABTR, AG PAT #### [facility] [address] [place] [address], HEMOGLOBIN A1Con 01-27-2024 Glucose [Mass/Vol] 108 mg/dL Normal [facility] Comment on above: Performed By: #### H B A1C ####[facility] [address] [place] [address], [address] HbA1c (Bld) [Mass fraction] 5.4 % Normal 4.0-5.6 [facility] Comment on above: Performed By: #### H B A1C ####[facility] [address] [place], [address] HEPATITIS B SURFACE ANTIGENo n 01-27-2024 HBSAG Non-Reactive Normal Non-Reactive [facility] Comment on above: Performed By: #### NAOMI North ABTR, AG PAT #### [facility] [address] [place] [address], HIV1 HIV2 AGAB SCRNon 2023 HIV AG-AB SCREEN Non-Reactive Normal Non-Reactive [facility] Comment on above: Order Comment: HIV Information: ???[place] Rev. code 3701.243(E): This information has been disclosed to you from confidential records protected from disclosure by state law. ???You shall make no further disclosure of this information without the specific, written, and informed release of the individual to whom it pertains, or as otherwise permitted by state law. ???A general authorization for the release of medical or other information is not sufficient for the purpose of the release of HIV test results or diagnoses. Result Comment: No l aboratory evidence for HIV Infection. Negative result does not rule out acute HIV infection. If acute HIV infection is suspected, recommend ordering an HIV-1 RNA quanitification test. Performed By: #### h iv1 hiv2 agab scrn #### [facility] [address] [place] [address], HUMAN PAPILLOMA VIRUSon HPV HIGH RISK Negative Normal Negative The [facility] Comment on above: Order Comment: This test is performed using an automated nucleic acid amplification assay ([employer], [employer] [place], [place]). This assay detects RNA of HPV types 16,18,31,33,35,39,45,51,52,56,58,59,66 and 68 in cervical specimens. Result Comment: A ne gative result does not exclude the possibility of low levels of infection. Performed By: #### H PV #### [facility] [address] [place] [address], Laboratory - Chemistry and C hemistry - challengeon 01-27-2024 HCG Qn 8112.0 m[IU]/mL High NINF [facility] Laboratory - Microbiology an d Antimicrobial susceptibilityon 01-27-2024 HBV surface Ag Ql (S) Non-Reactive Non-Reactive [facility] Rubella virus Ab IA Qn (S) 41.0 IU/mL [facility] Rubella virus IgG (S) [Interp] Reactive [facility] Laboratory - UrinalysisOrder ed By: Elizabeth Doshi on 01-27-2024 Glucose Test strip (U) [Mass/Vol] Negative Negative mg/dL [facility] Protein (U) [Mass/Vol] Negative Negative mg/d L [facility] No Panel Informationon 01-26 Extra Tube Done [facility] Interpretation and review of laboratory results [facility] Interpretation and review of laboratory results Abnormal [facility] Nonreactive : < or = 9.9 IU/mL Equivocal : 10.0 - 14.9 IU/mL Reactive : > or = 15.0 IU/mL * A Nonreactive test result indicates no current or previous infection with rubella virus. Such individuals are presumed to be susceptible to primary infection. * A Reactive test result indicates past or current infection with rubella virus or vaccination and indicates immunity to rubella. The following results were obtained using the Access Rubella IgG EIA assay. Values obtained with different business analytics director s assay methods may not be used interchangeably. [facility] No Panel InformationOrdered By: Elizabeth Doshi on 01-27-2024 [facility] Progress Noteson 01-27-2024 University Relations Vice President Authentication Interface Message Text I saw this 29 year old female for care today. Our best estimate of gestational age is 6w6d weeks. notes were recorded on the [facility] OB Episode forms. I reviewed, update when necessary her history and physical findings. Specifically I Reviewed, updated, and/or documented on Episode Forms all of the following: OB Flowsheet, Past Ob Hx, PMH, Past Surg Hx, PSocH, OB Questionaire positives, Ob All Lab flowsheet, Ultrasounds and OB Dating (consistant with 6w6d weeks gestation. Each Ob Problem on Problem list was reviewed and addressed and Problem based charting was documented on Ob Problem List in Flowsheet form for problems that changed since prior notes were recordedI was present for the critical portion of the visit. Problem Threatened (Hcc) 01/27/2024 6w6d 01/16/2023 HCG 5353. U/s then showed 5w 3d sac with no pole. Obesity Affecting in First Trimester (Hcc) 01/27/2024 6w6d BMI 38.9 Nutrition consult. Hgb A1c Trichomonas Infection 01/27/2024 6w6d pt and partner treated 01/17/2024 Assessment and plan reviewed with patient. She expresses understanding of our management plan. Luis Felipe Marie MD Normal [facility] [facility] RUBELLAon 01-27-2024 RUB 41.0 IU/mL Normal [facility] Comment on above: Order Comment: Nonre active : < or = 9.9 IU/mLEquivocal : 10.0 - 14.9 IU/mLReactive : > or = 15.0 IU/mL* A Nonreactive test result indicates no current or previous infection with rubella virus. Such individuals are presumed to be susceptible to primary infection.* A Reactive test result indicates past or current infection with rubella virus or vaccination and indicates immunity to rubella.The following results were obtained using the Access Rubella IgG EIA assay. Values obtained with different business analytics director???s assay methods may not be used interchangeably. Performed By: #### T SNAOMI ABTR, PAWAN PAT #### S [facility] LAB[facility] [address] [place] [address], RUBELLA INTERPRETATION Reactive Normal [facility] Comment on above: Order Comment: Nonre active : < or = 9.9 IU/mLEquivocal : 10.0 - 14.9 IU/mLReactive : > or = 15.0 IU/mL* A Nonreactive test result indicates no current or previous infection with rubella virus. Such individuals are presumed to be susceptible to primary infection.* A Reactive test result indicates past or current infection with rubella virus or vaccination and indicates immunity to rubella.The following results were obtained using the Access Rubella IgG EIA assay. Values obtained with different business analytics director???s assay methods may not be used interchangeably. Performed By: #### T NAOMI Downs ABTR, PAWAN PAT #### [facility] [address] [place] [address], SMA CARRIER SCREENon 024 INTERPRETATION SEE NOTE Normal [facility] Comment on above: Order Comment: [employer] Address Site ID: [id number] Name: [employer], Address: [address] [place] [address] Director: Stefani Yusuf MD,PhD,ANNY Result Comment: INTE RPRETATION: This analysis identified two (2) copies of the SMN1 gene. The g.96602N>G variant was not detected (NEGATIVE). The revised carrier risk for an individual with two (2) copies of the SMN1 gene and the absence of the g.34631O>G variant is dependent on ethnicity and is provided in the table below (Janine et al., 2012. PMID: 64680715; Jacques et al., 2017. PMID: 99964401). LIMITATIONS OF ANALYSIS: This negative result does not rule out carrier status or a diagnosis of spinal muscular atrophy (SMA). This testing cannot identify all individuals who have two copies of the SMN1 gene on one chromosome and none on the opposite chromosome (silent carriers), nor does it rule out other pathogenic/likely pathogenic variants in the SMN1 gene. The risk for pathogenic/likely pathogenic variants that cause SMA other than the loss of at least exon 7 depends greatly on family history, clinical presentation and ethnicity. Revised carrier risk for individuals with no family history of SMA Carrier Population Revised Risk/ Detection Carrier Variant Ethnicity Rate Risk Absent 95% 1:47 1:921 Ashkenazi 93% 1:67 1:918 Episcopalian 94% 1:59 1:907 90% 1:72 1:375 Bangladeshi 93% 1:68 1:906 A portion of the testing was performed at [facility]. Laboratory results and submitted clinical information reviewed by Mary Tovar, Ph.D., [facility], [facility]. SUPPLEMENTAL INFORMATION: Spinal muscular atrophy (SMA) is a family of disorders that is characterized by progressive muscle weakness due to loss of anterior horn cells. A loss of at least exon 7 in the SMN1 gene, located on chromosome 5q, causes 95% of SMA. The remainder of cases may be caused by intragenic pathogenic/likely pathogenic variants that would not be detected by this assay. SMN2 genes produce a protein identical to that of the SMN1 gene, but in a reduced (10-20%) amount. As a result, the number of copies of SMN2 has been shown to influence the severity of the disease. This assay detects the copy number of SMN1 and assesses copy number of SMN2 as described below. METHODOLOGY: The SMN1 copy number is detected by quantitative PCR. The g.76924G>G variant ([id number]), assessed by quantitative PCR, is reported when the SMN1 copy is equal to two. SMN2 copy number is assessed by quantitative PCR when SMN1 copy number is equal to zero or one, or when SMN1 is equal to two in the presence of the g.73167P>G variant. Although rare, false positive or false negative results may occur. All results should be interpreted in context of clinical findings, relevant history, and other laboratory data. Health care providers, please contact your local [employer] genetic counselor or call [employer] at [phone] for assistance with the interpretation of these results. This test was developed and its analytical performance characteristics have been determined by [employer]. It has not been cleared or approved by FDA. This assay has been validated pursuant to the CLIA regulations and is used for clinical purposes. Performed By: #### T S, ABIXander, ABTR, AG PAT #### [facility] [address] [place] [address], SMA 2+0 RISK VARIANT Not detected Normal [facility] Comment on above: Order Comment: [facility] Address Site ID: EZ Name: [employer], Address: [address] [place], [place] [id number] Director: Stefani Yusuf MD,PhD,ANNY Performed By: #### NAOMI North, ABTR, AG PAT #### [facility] [address] [place] [address], SMN1 2 COPIES Normal [facility] Comment on above: Order Comment: [facility] Address Site ID: EZ Name: [employer], Address: [address] [place], [place] [id number] Director: Stefani Yusuf MD,PhD,ANNY Performed By: #### T NAOMI Downs, LUANNR, AG PAT #### [facility] [address] [place] [address], TECHNICAL RESULTS Negative Normal [facility] Comment on above: Order Comment: [facility] Address Site ID: EZ Name: [facility], Address: [address] [place], [place] [id number] Director: Stefani Yusuf MD,PhD,ANNY Result Comment: TWO COPIES OF THE SMN1 GENE DETECTED. SEE TABLE BELOW FOR CARRIER RISK. Performed By: #### T S, ABID, ABTR, AG PAT #### [facility] [address] [place] [address], SYPHILIS WITH CONFIRMATIONon 01-27-2024 SYPHILIS TOTAL (IGG/IGM) Non-Reactive Normal Non-Reactive [facility] Comment on above: Order Comment: No re sults found for: TPPANo components found for: FTANo serologic evidence of syphilis.If recent exposure/early infection is suspected, repeat testing in 2-4 weeks. Performed By: #### T NAOMI Downs, LUANNR, AG PAT #### [facility] [address] [place], [place], TPPA Normal [facility] Comment on above: Order Comment: No re sults found for: TPPANo components found for: FTANo serologic evidence of syphilis.If recent exposure/early infection is suspected, repeat testing in 2-4 weeks. Performed By: #### T NAOMI Downs, SEVERINO, AG PAT #### [facility] [address] [place] [address], URINE CULTUREon 01-27-2024 Bacteria identified Cx Nom (U) C URINE: 1,000 - 10,000 CFU/ml No significant growth; skin/urogenital contamination present Normal [facility] [employer] Comment on above: Performed By: #### C URINE ####[facility] [id number] [place], [place] Telephone Encounteron 2023 University Relations Vice President Authentication Interface Message Text 2nd attempt to contact not needed after chart review pt has upcoming apt schd Closing encounter Future Appointments (next 10) Provider Department Center 01/27/2024 2:00 PM Luis Felipe Marie MD; SUPERVISOR STAVE FINISHING NURSE-384; SUPERVISOR STAVE FINISHING NURSE-128; SUPERVISOR STAVE FINISHING NURSE-129 [facility] Obstetrics/Gynecology [facility] ] Normal [facility] Progress Noteson 01-20-2024 University Relations Vice President Authentication Interface Message Text Social Work SUPERVISOR STAVE FINISHING Risk score 77% Received VM from Pt requesting transportation assistance. SW called Pt back and LVM requesting return call. SW will also send Pt a [employer] message. Plan: SW will remain available. Roxann Ryan, PLANNING DIRECTOR, BOOK CLEANER Pager: [phone] Normal [facility] Telephone Encounteron 2023 University Relations Vice President Authentication Interface Message Text POSITIVE TEST DOCUMENTATION Patient appeared on 01/17/24 report Patient had a positive test on : 01/17/24 Patient was called : LVM to call [facility] NEW OB apt 1st attempt to contact Normal [facility] CBC WITH DIFFERENTIALon 12-21 Basophils (Bld) [#/Vol] 0.06 10*3/uL 0.00 - 0.20 K/uL [facility] Basophils/100 WBC (Bld) 0.8 % NINF - 1.9 % [facility] Eosinophils (Bld) [#/Vol] 0.19 10*3/uL 0.00 - 0.70 K/uL [facility] Eosinophils/100 WBC (Bld) 2.4 % 0.1 - 4.0 % [facility] Erythrocyte distribution width (RBC) [Ratio] 14.1 % 11.5 - 14.5 % [facility] Hematocrit (Bld) [Volume fraction] 37.5 % 36.0 - 46.0 % [facility] Hemoglobin (Bld) [Mass/Vol] 12.6 g/dL 12.0 - 15.0 g/dL [facility] Interpretation and review of laboratory results Normal [facility] Lymphocytes (Bld) [#/Vol] 1.98 10*3/uL 1.00 - 4.80 K/uL [facility] Lymphocytes/100 WBC (Bld) 25.2 % 24.0 - 44.0 % [facility] MCH (RBC) [Entitic mass] 30.5 pg 26.0 - 34.0 pg [facility] MCHC (RBC) [Mass/Vol] 33.7 g/dL 32.0 - 35.9 g/dL [facility] MCV (RBC) [Entitic vol] 91 fL 80 - 100 fL [facility] Monocyte distribution width Auto (Bld) [Entitic vol] 18 NINF - 20 [facility] Monocytes (Bld) [#/Vol] 0.53 10*3/uL 0.20 - 1.00 K/uL [facility] Monocytes/100 WBC (Bld) 6.7 % 2.0 - 11.0 % [facility] Neutrophils (Bld) [#/Vol] 5.09 10*3/uL 1.50 - 8.00 K/uL [facility] Neutrophils/100 WBC (Bld) 64.9 % 31.0 - 76.0 % [facility] Platelet mean volume (Bld) [Entitic vol] 8.9 fL 7.5 - 11.2 fL [facility] Platelets (Bld) [#/Vol] 265 10*3/uL 150 - 400 K/uL [facility] RBC (Bld) [#/Vol] 4.14 10*6/uL [facility] WBC (Bld) [#/Vol] 7.8 10*3/uL 4.5 - 11.5 K/uL [facility] Basophils (Bld) [#/Vol] 0.06 10*3/uL Normal 0.00-0.20 [facility] Comment on above: Performed By: #### NAOMI North ABTR, AG PAT #### [facility] [address] [place] [address], Basophils/100 WBC (Bld) 0.8 % Normal <=1.9 [facility] Comment on above: Performed By: #### Santhosh Downs ABIXander ABTR, AG PAT #### [facility] [address] [place] [address], Eosinophils (Bld) [#/Vol] 0.19 10*3/uL Normal 0.00-0.70 [facility] Comment on above: Performed By: #### T Kimo ABIXander, ABTR, AG PAT #### [facility] [address] [place] [address], Eosinophils/100 WBC (Bld) 2.4 % Normal 0.1-4.0 [facility] Comment on above: Performed By: #### T Kimo, ABIXander, ABTR, AG PAT #### [facility] [address] [place] [address], Erythrocyte distribution width (RBC) [Ratio] 14.1 % Normal 11.5-14.5 [facility] Comment on above: Performed By: #### T S, ABIXander, ABTR, AG PAT #### [facility] [address] [place] [address], Hematocrit (Bld) [Volume fraction] 37.5 % Normal 36.0-46.0 [facility] Comment on above: Performed By: #### T Kimo ABIXander, ABTR, AG PAT #### [facility] [address] [place] [address], Hemoglobin (Bld) [Mass/Vol] 12.6 g/dL Normal 12.0-15.0 [facility] Comment on above: Performed By: #### T Kimo ABIXander ABTR, AG PAT #### [facility] [address] [place] [address], Lymphocytes (Bld) [#/Vol] 1.98 10*3/uL Normal 1.00-4.80 [facility] Comment on above: Performed By: #### Santhosh Downs ABIXander ABTR, AG PAT #### [facility] [address] [place] [address], Lymphocytes/100 WBC (Bld) 25.2 % Normal 24.0-44.0 [facility] Comment on above: Performed By: #### Santhosh Downs ABIXander ABTR, AG PAT #### [facility] [address] [place] [address], MCH (RBC) [Entitic mass] 30.5 pg Normal 26.0-34.0 [facility] Comment on above: Performed By: #### T Kimo ABIXander, ABTR, AG PAT #### [facility] [address] [place] [address], MCHC (RBC) [Mass/Vol] 33.7 g/dL Normal 32.0-35.9 [facility] Comment on above: Performed By: #### T Kimo, ABIXander, ABTR, AG PAT #### [facility] [address] [place] [address], MCV (RBC) [Entitic vol] 91 fL Normal 80-100 [facility] Comment on above: Performed By: #### T Kimo, ABIXander, ABTR, AG PAT #### [facility] [address] [place] [address], MONOCYTE DISTRIBUTION WIDTH 18 Normal <=20 [facility] Comment on above: Performed By: #### T Kimo, ABIXander, ABTR, AG PAT #### [facility] [address] [place] [address], Monocytes (Bld) [#/Vol] 0.53 10*3/uL Normal 0.20-1.00 [facility] Comment on above: Performed By: #### T S, ABID, ABTR, AG PAT #### [facility] [address], [place], Monocytes/100 WBC (Bld) 6.7 % Normal 2.0-11.0 [facility] Comment on above: Performed By: #### T S, ABID, ABTR, AG PAT #### [facility] [address], [place], Neutrophils (Bld) [#/Vol] 5.09 10*3/uL Normal 1.50-8.00 [facility] Comment on above: Performed By: #### T S, ABID, ABTR, AG PAT #### [facility] [address] [place] [address], Neutrophils/100 WBC (Bld) 64.9 % Normal 31.0-76.0 [facility] Comment on above: Performed By: #### T S, ABID, ABTR, AG PAT #### [facility] [address] [place] [address], Platelet mean volume (Bld) [Entitic vol] 8.9 fL Normal 7.5-11.2 [facility] Comment on above: Performed By: #### T S, ABID, ABTR, AG PAT #### [facility] [address] [place] [address], Platelets (Bld) [#/Vol] 265 10*3/uL Normal 150-400 [facility] Comment on above: Performed By: #### T S, ABID, ABTR, AG PAT #### [facility] [address] [place] [address], RBC (Bld) [#/Vol] 4.14 10*6/uL Normal 4.00-5.20 [facility] Comment on above: Performed By: #### T S, ABID, ABTR, AG PAT #### [facility] [address] [place], [place], WBC (Bld) [#/Vol] 7.8 10*3/uL Normal 4.5-11.5 [facility] Comment on above: Performed By: #### NAOMI North ABTR, PAWAN PAT #### [facility] [address], [place], ED Provider Noteson 01-17-20 University Relations Vice President Authentication Interface Message Text -------- HISTORY OF PRESENT ILLNESS ---- 01/17/2024, 8:09 AM. The history is provided by the Patient. Andrew Mena is a 29 year old female presenting to the ED for concerns that she is still having some vaginal irritation after treatment for trichomoniasis with Flagyl. She thinks she might a have a yeast infection. She notes that she had had no vaginal bleeding since July and is unsure when her last menstrual period was. She had a negative test on the but a positive one on the . She had a positive Serum HCG on October 26 which was down-trending from October 22 when it was 173. She denies any fever, chills, vaginal discharge, or bleeding. REVIEW OF SYSTEMS Review of Systems Constitutional: Negative for chills and fever. Genitourinary: Negative for vaginal bleeding and vaginal discharge. Vaginal irritation (+) PAST HISTORY Past Medical History: No pertinent past medical history. Past Surgical History: No pertinent past surgical history. Family History: No pertinent past family history. The patient's home medications have been reviewed. Allergies: Bee pollen, Bee venom, Penicillins, and Beeswax PHYSICAL EXAM Vitals Recorded in This Encounter 01/17/2024 0806 01/17/2024 0842 BP: 125/85 -- Pulse: 102 -- Resp: 16 -- Temp: -- 98.1 ???F (36.7 ???C) Temp src: -- Oral SpO2: 98 % -- Pain Score: 1 -- Constitutional: Well developed, well nourished. Awake AND alert. No distress. Head: Atraumatic. Eyes: PERRL. EOMI. No pale conjunctivae. No scleral icterus. ENT: Mucous membranes are moist. Oropharynx is clear and symmetric. Neck: Supple. No nuchal rigidity. Cardiovascular: Regular rate. Regular rhythm. Well perfused. Pulmonary/Chest: No evidence of respiratory distress. Clear to auscultation bilaterally. No wheezing, rales or rhonchi. Abdominal: Soft and non-distended. There is no tenderness. No rebound, guarding, or rigidity. No organomegaly. Good bowel sounds. Genitourinary: No CVA tenderness. Musculoskeletal: Moves all four extremities. No edema. No calf tenderness. Skin: Skin is warm and dry. No rashes. Neurological: Alert, awake, and appropriate. Cranial nerves grossly intact. Moving all four extremities. Psychiatric: Good eye contact. Appropriate in content/context. Normal affect. ED COURSE - HIPAA: Verbal permission granted from patient to discuss case , including protected health information, in front of family / friends in room at the time of the evaluation. ED Medications: Medications cephALEXin (KEFLEX) capsule (has no administration in time range) 12:28 PM - followed up with patient, she will be discharged MEDICAL DECISION MAKING --------- Vital Signs: Reviewed the patient's vital signs. Nursing Notes: Reviewed and utilized the nursing notes. Lithopress Operator: not needed - patient preferred language is Swazi. External Medical Records: The patient's available past medical records and past encounters were reviewed. Summary of pertinent elements include: 1) She had a negative test on 01/01 and a positive test on 01/05. 2) Positive Serum HCG on October 26, which was down trending from October 22 when it was 173. Laboratory Studies: Ordered and independently reviewed the laboratory tests. Pertinent results include: Urinalysis: positive white blood cells Urine HCG: + Wet Mount Preparation: negative Gonorrhea/Chlamydia/Tr ichomonas: Pending. HCG, Quantitative 5300 CBC no anemia Type and Screen normal Radiology Studies: Ordered and reviewed the radiology images. US 1ST TRI/OB TRANSVAG Reviewed the radiologist's preliminary report which reads as follows: Single early intrauterine with an estimated gestational age of 5w3d+/-0w3d. This yields an estimated due date of 09/15/2024. A follow-up ultrasound can be obtained in > or = 2 weeks to reassess viability. I independently reviewed and interpreted the US 1ST TRI/OB. My interpretation is first trimester intrauterine . Medical Decision Makin29 year old female here with early . US shows likely IUP and HCG is elevated. Here abdomen soft non tender. Advised OB follow up and return precautions. UA with asymptomatic bacteria vs infection. Review of External (Non- ED) Notes: Discharge summaries reviewed and show see above Office visit from see above reviewed and shows see above Management Decisions: Shared decision making used to decide see above ED prescription drug management decision making: Medications presc (more content not included)... Normal [facility] GC/CHLAMYDIA/TRICHOMONAS AMP LIFICATIONon 01-17-2024 GC/CHLAMYDIA/TRICHOMON AMPLIFICATION CHLAMYDIA AMPLIFICATION: Negative GC AMPLIFICATION: Negative TRICHOMONAS AMPLIFICATION: Negative Normal Negative [facility] Comment on above: Order Comment: This test is performed using an automated nucleic acid amplification assay ([employer] Performed By: #### G CT ####[facility] [address] [place], [place] HCG URINEOrdered By: Radha Serna on 01-17-2024 HCG ( test) Ql (U) Positive Abnormal Negative [facility] Interpretation and review of laboratory results Abnormal [facility] HCG URINEon 01-17-2024 Beta HCG ( test) Ql (U) Positive Abnormal Negative [facility] Comment on above: Performed By: #### T NAOMI Downs ABTR, AG PAT #### [facility] [address] [place] [address], HCG, QUANTITATIVEon 01-17-20 24 HCG Qn 5353.0 m[IU]/mL High [facility] Interpretation and review of laboratory results Abnormal [facility] HCG 5353.0 mIU/mL High <5.0 [facility] Comment on above: Performed By: #### T NAOMI Downs ABTR, AG PAT #### [facility] [address] [place] [address], Laboratory - Blood bankon ABO and Rh group Nom (Bld) Blood group O Rh(D) positive [facility] Comment on above: anti-M TYPE AND SCREENon 01-17-2024 Blood group antibody screen Ql Negative [facility] ABO and Rh group Nom (Bld) Blood group O Rh(D) positive Normal [facility] Comment on above: Performed By: #### T NAOMI Downs ABTR, AG PAT #### [facility] [address] [place] [address], Result Comment: anti -M ABSC INT Negative Normal [facility] Comment on above: Performed By: #### T S, NAOMI, SEVERINO, PAWAN PAT #### [facility] [address] [place], [address] URINALYSISon 01-17-2024 Appearance (U) Turbid Clear [facility] Bilirubin Ql (U) Negative Negative [facility] Color (U) Light Yellow Colorless [facility] Epithelial cells.squamous LM.HPF (Urine sed) [#/Area] 6-10 [facility] Glucose Auto test strip (U) [Mass/Vol] Negative Negative mg/dL [facility] Hemoglobin Ql (U) Negative Negative [facility] Interpretation and review of laboratory results Abnormal [facility] Ketones Ql (U) Negative Negative mg/dL [facility] Leukocyte esterase Test strip Ql (U) Positive Abnormal Negative [facility] Comment on above: Normal urine specime ns will not produce a positive reaction. Small amounts of leukocyte esterase, causing a positive reaction should be repeated, using a fresh urine specimen, from the same patient. Positive results require further testing for pyuria. Mucus Ql (Urine sed) Present [facility] Nitrite Ql (U) Negative Negative [facility] pH (U) 6.0 [pH] 5.0 - 8.0 [facility] Protein (U) [Mass/Vol] Negative Negative mg/d L [facility] Specific gravity (U) [Rel density] 1.014 NINF - 1.030 [facility] Urobilinogen Qn (U) Negative Negative mg/dL [facility] WBC (U) [#/Vol] 0-2 [facility] WBC LM.HPF (Urine sed) [#/Area] 3-5 Abnormal [facility] A negative leukocyte esterase AND negative nitrite test or absence of pyuria (urine WBC count <= 5-10) make a UTI (urinary tract infection) very unlikely in a non-neutropenic adult (<=5% likelihood in many studies). A positive leukocyte esterase, nitrite and/or pyuria is a nonspecific result. This can be seen in conditions other than a UTI e.g. asymptomatic bacteriuria, gynecologic infections, sexually transmitted infections, and noninfectious conditions (positive predictive value for UTI around 50%) [facility] Glucose Ql (U) Negative Normal Negative [facility] Comment on above: Order Comment: A neg ative leukocyte esterase AND negative nitrite test or absence of pyuria (urine WBC count <= 5-10) make a UTI (urinary tract infection) very unlikely in a non-neutropenic adult (<=5% likelihood in many studies). A positive leukocyte esterase, nitrite and/or pyuria is a nonspecific result. This can be seen in conditions other than a UTI e.g. asymptomatic bacteriuria, gynecologic infections, sexually transmitted infections, and noninfectious conditions (positive predictive value for UTI around 50%) Performed By: #### T Kimo, SEVERINO SALGADO, AG PAT #### S [facility] [address] [place] [address], SQUAMOUS EPITHELIAL 6-10 Normal 0-10 [facility] Comment on above: Order Comment: A neg ative leukocyte esterase AND negative nitrite test or absence of pyuria (urine WBC count <= 5-10) make a UTI (urinary tract infection) very unlikely in a non-neutropenic adult (<=5% likelihood in many studies). A positive leukocyte esterase, nitrite and/or pyuria is a nonspecific result. This can be seen in conditions other than a UTI e.g. asymptomatic bacteriuria, gynecologic infections, sexually transmitted infections, and noninfectious conditions (positive predictive value for UTI around 50%) Performed By: #### T NAOMI Downs ABTR, AG PAT #### S [facility] [address] [place] [address], U APPEAR Turbid Normal Clear [facility] Comment on above: Order Comment: A neg ative leukocyte esterase AND negative nitrite test or absence of pyuria (urine WBC count <= 5-10) make a UTI (urinary tract infection) very unlikely in a non-neutropenic adult (<=5% likelihood in many studies). A positive leukocyte esterase, nitrite and/or pyuria is a nonspecific result. This can be seen in conditions other than a UTI e.g. asymptomatic bacteriuria, gynecologic infections, sexually transmitted infections, and noninfectious conditions (positive predictive value for UTI around 50%) Performed By: #### T Kimo, NAOMI, LUANNR, AG PAT #### S [facility] [address] [place] [address], U BILI Negative Normal Negative [facility] Comment on above: Order Comment: A neg ative leukocyte esterase AND negative nitrite test or absence of pyuria (urine WBC count <= 5-10) make a UTI (urinary tract infection) very unlikely in a non-neutropenic adult (<=5% likelihood in many studies). A positive leukocyte esterase, nitrite and/or pyuria is a nonspecific result. This can be seen in conditions other than a UTI e.g. asymptomatic bacteriuria, gynecologic infections, sexually transmitted infections, and noninfectious conditions (positive predictive value for UTI around 50%) Performed By: #### T S, ABID, ABTR, AG PAT #### [facility] [address] [place] [address], U BLOOD Negative Normal Negative [facility] Comment on above: Order Comment: A neg ative leukocyte esterase AND negative nitrite test or absence of pyuria (urine WBC count <= 5-10) make a UTI (urinary tract infection) very unlikely in a non-neutropenic adult (<=5% likelihood in many studies). A positive leukocyte esterase, nitrite and/or pyuria is a nonspecific result. This can be seen in conditions other than a UTI e.g. asymptomatic bacteriuria, gynecologic infections, sexually transmitted infections, and noninfectious conditions (positive predictive value for UTI around 50%) Performed By: #### T S, ABID, ABTR, AG PAT #### [facility] [address] [place] [address], U COLOR Light Yellow Normal Colorless [facility] Comment on above: Order Comment: A neg ative leukocyte esterase AND negative nitrite test or absence of pyuria (urine WBC count <= 5-10) make a UTI (urinary tract infection) very unlikely in a non-neutropenic adult (<=5% likelihood in many studies). A positive leukocyte esterase, nitrite and/or pyuria is a nonspecific result. This can be seen in conditions other than a UTI e.g. asymptomatic bacteriuria, gynecologic infections, sexually transmitted infections, and noninfectious conditions (positive predictive value for UTI around 50%) Performed By: #### T S, ABID, ABTR, AG PAT #### [facility] [address] [place] [address], U KETONE Negative Normal Negative [facility] Comment on above: Order Comment: A neg ative leukocyte esterase AND negative nitrite test or absence of pyuria (urine WBC count <= 5-10) make a UTI (urinary tract infection) very unlikely in a non-neutropenic adult (<=5% likelihood in many studies). A positive leukocyte esterase, nitrite and/or pyuria is a nonspecific result. This can be seen in conditions other than a UTI e.g. asymptomatic bacteriuria, gynecologic infections, sexually transmitted infections, and noninfectious conditions (positive predictive value for UTI around 50%) Performed By: #### T NAOMI Downs ABTR, AG PAT #### S [facility] [address] [place] [address], U LEUK Positive Abnormal Negative [facility] Comment on above: Order Comment: A neg ative leukocyte esterase AND negative nitrite test or absence of pyuria (urine WBC count <= 5-10) make a UTI (urinary tract infection) very unlikely in a non-neutropenic adult (<=5% likelihood in many studies). A positive leukocyte esterase, nitrite and/or pyuria is a nonspecific result. This can be seen in conditions other than a UTI e.g. asymptomatic bacteriuria, gynecologic infections, sexually transmitted infections, and noninfectious conditions (positive predictive value for UTI around 50%) Result Comment: Norm al urine specimens will not produce a positive reaction. Small amounts of leukocyte esterase, causing a positive reaction should be repeated, using a fresh urine specimen, from the same patient. Positive results require further testing for pyuria. Performed By: #### T NAOMI Downs ABTR, AG PAT #### [facility] [address] [place] [address], [place] MUCOUS Present Normal [facility] Comment on above: Order Comment: A neg ative leukocyte esterase AND negative nitrite test or absence of pyuria (urine WBC count <= 5-10) make a UTI (urinary tract infection) very unlikely in a non-neutropenic adult (<=5% likelihood in many studies). A positive leukocyte esterase, nitrite and/or pyuria is a nonspecific result. This can be seen in conditions other than a UTI e.g. asymptomatic bacteriuria, gynecologic infections, sexually transmitted infections, and noninfectious conditions (positive predictive value for UTI around 50%) Performed By: #### T NAOMI Downs ABTR, AG PAT #### [facility] [address] [place] [address], [place] NITRITE Negative Normal Negative [facility] [facility] Comment on above: Order Comment: A neg ative leukocyte esterase AND negative nitrite test or absence of pyuria (urine WBC count <= 5-10) make a UTI (urinary tract infection) very unlikely in a non-neutropenic adult (<=5% likelihood in many studies). A positive leukocyte esterase, nitrite and/or pyuria is a nonspecific result. This can be seen in conditions other than a UTI e.g. asymptomatic bacteriuria, gynecologic infections, sexually transmitted infections, and noninfectious conditions (positive predictive value for UTI around 50%) Performed By: #### T NAOMI Downs ABTR, AG PAT #### [facility] [address] [place] [address], [place] PH 6.0 Normal 5.0-8.0 [facility] Comment on above: Order Comment: A neg ative leukocyte esterase AND negative nitrite test or absence of pyuria (urine WBC count <= 5-10) make a UTI (urinary tract infection) very unlikely in a non-neutropenic adult (<=5% likelihood in many studies). A positive leukocyte esterase, nitrite and/or pyuria is a nonspecific result. This can be seen in conditions other than a UTI e.g. asymptomatic bacteriuria, gynecologic infections, sexually transmitted infections, and noninfectious conditions (positive predictive value for UTI around 50%) Performed By: #### T NAOMI Downs ABTR, AG PAT #### [facility] [address] [place] [address], U PROTEIN Negative Normal Negative [facility] Comment on above: Order Comment: A neg ative leukocyte esterase AND negative nitrite test or absence of pyuria (urine WBC count <= 5-10) make a UTI (urinary tract infection) very unlikely in a non-neutropenic adult (<=5% likelihood in many studies). A positive leukocyte esterase, nitrite and/or pyuria is a nonspecific result. This can be seen in conditions other than a UTI e.g. asymptomatic bacteriuria, gynecologic infections, sexually transmitted infections, and noninfectious conditions (positive predictive value for UTI around 50%) Performed By: #### T NAOMI Downs ABTR, PAWAN PAT #### S PATH[facility] [address], [place], U RBC 0-2 Normal 0-2 [facility] Comment on above: Order Comment: A neg ative leukocyte esterase AND negative nitrite test or absence of pyuria (urine WBC count <= 5-10) make a UTI (urinary tract infection) very unlikely in a non-neutropenic adult (<=5% likelihood in many studies). A positive leukocyte esterase, nitrite and/or pyuria is a nonspecific result. This can be seen in conditions other than a UTI e.g. asymptomatic bacteriuria, gynecologic infections, sexually transmitted infections, and noninfectious conditions (positive predictive value for UTI around 50%) Performed By: #### T NAOMI Downs ABTR, AG PAT #### [facility] [address], [place], U SG 1.014 Normal <=1.030 [facility] Comment on above: Order Comment: A neg ative leukocyte esterase AND negative nitrite test or absence of pyuria (urine WBC count <= 5-10) make a UTI (urinary tract infection) very unlikely in a non-neutropenic adult (<=5% likelihood in many studies). A positive leukocyte esterase, nitrite and/or pyuria is a nonspecific result. This can be seen in conditions other than a UTI e.g. asymptomatic bacteriuria, gynecologic infections, sexually transmitted infections, and noninfectious conditions (positive predictive value for UTI around 50%) Performed By: #### T NAOMI Downs ABTR, AG PAT #### [facility] [address], [place], U UROBILI Negative Normal Negative [facility] Comment on above: Order Comment: A neg ative leukocyte esterase AND negative nitrite test or absence of pyuria (urine WBC count <= 5-10) make a UTI (urinary tract infection) very unlikely in a non-neutropenic adult (<=5% likelihood in many studies). A positive leukocyte esterase, nitrite and/or pyuria is a nonspecific result. This can be seen in conditions other than a UTI e.g. asymptomatic bacteriuria, gynecologic infections, sexually transmitted infections, and noninfectious conditions (positive predictive value for UTI around 50%) Performed By: #### T SNAOMI, SEVERINO, AG PAT #### [facility] [address], [place], U WBC 3-5 Abnormal 0-2 [facility] [facility] Comment on above: Order Comment: A neg ative leukocyte esterase AND negative nitrite test or absence of pyuria (urine WBC count <= 5-10) make a UTI (urinary tract infection) very unlikely in a non-neutropenic adult (<=5% likelihood in many studies). A positive leukocyte esterase, nitrite and/or pyuria is a nonspecific result. This can be seen in conditions other than a UTI e.g. asymptomatic bacteriuria, gynecologic infections, sexually transmitted infections, and noninfectious conditions (positive predictive value for UTI around 50%) Performed By: #### T NAOMI Downs ABTR, AG PAT #### [facility] [address], [place], [place] 1ST TRI/OB TRANSVAG (MINOO) on 01-17-2024 US 1ST TRI/OB TRANSVAG (MINOO) EXAMINATION: US 1ST TRI/OB TRANSVAG (MINOO) 01/17/2024 10:47 AM CLINICAL HISTORY: abdominal pain in early , fluctuating HCG levels, was in October with down trending hcg but never followed up, new vs POC vs ectopic. ASSOCIATED DIAGNOSIS: ORDERING PROVIDER: JUN [employer] NOTE: Unknown LMP. COMPARISON: US 1ST TRI/OB TRANSVAG (MINOO) 10/23/2023, 3:23 PM TECHNIQUE: Ultrasound real time scan with image documentation of the first trimester gravid uterus and ovaries was performed using both trans abdominal and transvaginal approach. FINDINGS: There is a single early intrauterine with a double decidual sign and yolk sac. No pole is yet seen. The gestational sac measures 0.73 cm which corresponds to an estimated gestational age of 5w3d+/-0w3d. Appropriate shape of gestational sac. The placenta is not defined yet due to the early stage of the . The right ovary is not visualized and the left ovary appears normal in size and appearance. A small amount of free fluid is present in the pelvis which is within the range of physiologic. IMPRESSION: 1. Single early intrauterine with an estimated gestational age of 5w3d+/-0w3d. This yields an estimated due date of 09/15/2024. A follow-up ultrasound can be obtained in greater than or equal to 2 weeks to reassess viability. 2. Nonvisualized right ovary. Unremarkable left ovary. MACRO: None Normal [facility] WET MOUNT PREPARATIONOrdered By: Maddi Adame on 01-17-2024 Clue cells Wet prep Ql (Unsp spec) None Seen None Seen [facility] Interpretation and review of laboratory results Abnormal [facility] [place] Motile Wet prep (Vag fld) [#/Area] None Seen None Seen [facility] T. vaginalis Wet prep Ql (Unsp spec) None Seen None Seen [facility] WBC Wet prep (Unsp spec) [#/Area] 3-10 Abnormal None Seen /Hpf [facility] Yeast Wet prep Ql (Unsp spec) None Seen None Seen [facility] WET MOUNT PREPARATIONon 12-21 WET MOUNT PREPARATION CLUE CELLS: None Seen WBC: 3-10 TRICHOMONAS REFLEX: None Seen YEAST: None Seen SPERM: None Seen Normal None Seen [facility] Comment on above: Performed By: #### C R WET ####[facility] [id number] [place], [id number] ED Provider Noteson 01-02-20 [employer] Vice President Authentication Interface Message Text EMERGENCY DEPARTMENT - VISIT NOTE -------- HISTORY OF PRESENT ILLNESS ---- Chief Complaint Patient presents with Test Generalized redness/erythema/rash HPI Andrew Mena 28 year old female here with complaint of rash to both arms for awhile. Nothing new per patient. No one else has a rash. Son has eczema per patient. + itching per patient. Also concerned that she could be . States she had some spotting about 2 weeks ago but feels like she is . Has boob irritations. No VB/VD. A little crampy per patient like maybe a period cramp. Had miscarriage 2 months ago AND worried that she is again. No n/v/d. No fevers. Sick contacts with similar illness : none REVIEW OF SYSTEMS Review of Systems Constitutional: Negative. Negative for chills and fever. HENT: Negative. Eyes: Negative. Respiratory: Negative. Negative for cough. Cardiovascular: Negative. Negative for chest pain. Gastrointestinal: Negative. Genitourinary: Negative for dysuria, flank pain, frequency, hematuria and urgency. White stuff in my urine. Musculoskeletal: Negative. Skin: Positive for itching and rash (spots to both forearms). Neurological: Negative. Negative for headaches. Endo/Heme/Allergies: Negative. Psychiatric/Behavioral : Negative. PAST HISTORY Pertinent Past History: reviewed No past medical history on file. Pertinent Family History: reviewed No family history on file. Pertinent Social History: reviewed Tob : denies EtOH : denies Drugs : denies LMP: 2 weeks ago had spotting Immunizations:UTD per patient PHYSICAL EXAM BP 103/74 Pulse 90 Temp 98.5 ???F (36.9 ???C) (Oral) Resp 18 SpO2 99% Physical Exam Constitutional: well appearing, pleasant, NAD Head: atraumatic Eyes: PERRL Nose: nares patent, Mouth: moist mucous membrane Heme/Lymphatic/Immunol ogic: no cervical LAD Neuro: awake, alert, active, appropriate interaction, normal speech and gait Cardiac: RRR, nl S1 and S2 Respiratory: CTA bilaterally, no added sounds, good air entry bilaterally, no respiratory distress Gastrointestinal: soft, nontender, no organomegaly, nondistended, no guarding, normoactive BS Genitourinary: no CVAT Integument: warm and dry, small scant rash noted to right forearm, left barely visible. No excoriated areas, no raised or vesicles seen. Appears dry patches. Musculoskeletal: ambulatory Psychiatric: Good eye contact. Appropriate in content/context. Normal affect. ED COURSE - HIPAA: Verbal permission granted from patient to discuss case , including protected health information, in front of family / friends in room at the time of the evaluation.yes not needed - patient preferred language is Swazi. Treatments in ER: labs MEDICAL DECISION MAKING -------- Review of External (Non- ED) Notes: Office visit from 12/31/23 reviewed and shows seen for asthma AND concern for veneral disease ED prescription drug management decision making: Medications prescribed - see visit medications. Independent Test Interpretation: Lab studies reviewed, ua: + for leuks, neg for nitrates, + WBC, HCG: negative Nursing triage and assessment notes reviewed and incorporated Nature of Presenting Problem: New problem to patient. Results: Labs Reviewed URINALYSIS - Abnormal; Notable for the following components: Result Value Leuk. Esterase Positive (*) All other components within normal limits Narrative: A negative leukocyte esterase AND negative nitrite test or absence of pyuria (urine WBC count <= 5-10) make a UTI (urinary tract infection) very unlikely in a non-neutropenic adult (<=5% likelihood in many studies). A positive leukocyte esterase, nitrite and/or pyuria is a nonspecific result. This can be seen in conditions other than a UTI e.g. asymptomatic bacteriuria, gynecologic infections, sexually transmitted infections, and noninfectious conditions (positive predictive value for UTI around 50%) HCG URINE - Normal URINE HCG-IN OFFICE URINALYSIS Narrative: The following orders were created for panel order URINALYSIS. Procedure Abnormality Status --------- ------ URINALYSIS[[id number]] Abnormal Preliminary result Please view results for these tests on the individual orders. URINALYSIS,AUTO-IN OFFICE Medical Decision Making: No signs of UTI on lab AND no symptoms other than she saw white stuff in her urine earlier. Denies: frequency, dysuria. Had GC treatment 2 days ago. No need for a new STD test as she was just (more content not included)... Normal [facility] HCG URINEOrdered By: Thong Palacios on 01-02-2024 HCG ( test) Ql (U) Negative Negative [facility] Interpretation and review of laboratory results Normal [facility] HCG URINEon 01-02-2024 Beta HCG ( test) Ql (U) Negative Normal Negative [facility] Comment on above: Performed By: #### T Kimo, NAOMI, ABTR, AG PAT #### [facility] [address] [place] [address], [id number] URINALYSISon 01-02-2024 Appearance (U) Turbid Clear [facility] Bacteria LM.HPF (Urine sed) [#/Area] Few /HPF [facility] Bilirubin Ql (U) Negative Negative [facility] Color (U) Yellow Colorless [facility] Epithelial cells.squamous LM.HPF (Urine sed) [#/Area] 11-30 Abnormal [facility] Glucose Auto test strip (U) [Mass/Vol] Negative Negative mg/dL [facility] Hemoglobin Ql (U) Negative Negative [facility] Interpretation and review of laboratory results Abnormal [facility] Ketones Ql (U) Negative Negative mg/dL [facility] Leukocyte esterase Test strip Ql (U) Positive Abnormal Negative [facility] Comment on above: Normal urine specime ns will not produce a positive reaction. Small amounts of leukocyte esterase, causing a positive reaction should be repeated, using a fresh urine specimen, from the same patient. Positive results require further testing for pyuria. Mucus Ql (Urine sed) Present [facility] Nitrite Ql (U) Negative Negative [facility] pH (U) 6.0 [pH] 5.0 - 8.0 [facility] Protein (U) [Mass/Vol] 10 mg/dL Negative [facility] Specific gravity (U) [Rel density] 1.028 NINF - 1.030 [facility] Urobilinogen Qn (U) Negative Negative mg/dL [facility] WBC (U) [#/Vol] 11-30 Abnormal [facility] WBC LM.HPF (Urine sed) [#/Area] 3-5 Abnormal [facility] Yeast LM Ql (Urine sed) Few /HPF [facility] A negative leukocyte esterase AND negative nitrite test or absence of pyuria (urine WBC count <= 5-10) make a UTI (urinary tract infection) very unlikely in a non-neutropenic adult (<=5% likelihood in many studies). A positive leukocyte esterase, nitrite and/or pyuria is a nonspecific result. This can be seen in conditions other than a UTI e.g. asymptomatic bacteriuria, gynecologic infections, sexually transmitted infections, and noninfectious conditions (positive predictive value for UTI around 50%) [facility] Glucose Ql (U) Negative Normal Negative [facility] Comment on above: Order Comment: A neg ative leukocyte esterase AND negative nitrite test or absence of pyuria (urine WBC count <= 5-10) make a UTI (urinary tract infection) very unlikely in a non-neutropenic adult (<=5% likelihood in many studies). A positive leukocyte esterase, nitrite and/or pyuria is a nonspecific result. This can be seen in conditions other than a UTI e.g. asymptomatic bacteriuria, gynecologic infections, sexually transmitted infections, and noninfectious conditions (positive predictive value for UTI around 50%) Performed By: #### T Kimo, NAOMI, SEVERINO, AG PAT #### [facility] [address] [place] [address], [id number] Protein (U) [Mass/Vol] 10 mg/dL Normal Negative [facility] Comment on above: Order Comment: A neg ative leukocyte esterase AND negative nitrite test or absence of pyuria (urine WBC count <= 5-10) make a UTI (urinary tract infection) very unlikely in a non-neutropenic adult (<=5% likelihood in many studies). A positive leukocyte esterase, nitrite and/or pyuria is a nonspecific result. This can be seen in conditions other than a UTI e.g. asymptomatic bacteriuria, gynecologic infections, sexually transmitted infections, and noninfectious conditions (positive predictive value for UTI around 50%) Performed By: #### T S, NAOMI, SEVERINO, AG PAT #### [facility] [address] [place] [address], SQUAMOUS EPITHELIAL 11-30 Abnormal 0-10 [facility] Comment on above: Order Comment: A neg ative leukocyte esterase AND negative nitrite test or absence of pyuria (urine WBC count <= 5-10) make a UTI (urinary tract infection) very unlikely in a non-neutropenic adult (<=5% likelihood in many studies). A positive leukocyte esterase, nitrite and/or pyuria is a nonspecific result. This can be seen in conditions other than a UTI e.g. asymptomatic bacteriuria, gynecologic infections, sexually transmitted infections, and noninfectious conditions (positive predictive value for UTI around 50%) Performed By: #### T Kimo, SEVERINO SALGADO, AG PAT #### [facility] [address] [place] [address], [place] APPEAR Turbid Normal Clear [facility] Comment on above: Order Comment: A neg ative leukocyte esterase AND negative nitrite test or absence of pyuria (urine WBC count <= 5-10) make a UTI (urinary tract infection) very unlikely in a non-neutropenic adult (<=5% likelihood in many studies). A positive leukocyte esterase, nitrite and/or pyuria is a nonspecific result. This can be seen in conditions other than a UTI e.g. asymptomatic bacteriuria, gynecologic infections, sexually transmitted infections, and noninfectious conditions (positive predictive value for UTI around 50%) Performed By: #### T Kimo, ABIXander, LUANNR, AG PAT #### [facility] [address] [place] [address], U BACTERIA Few Normal [facility] Comment on above: Order Comment: A neg ative leukocyte esterase AND negative nitrite test or absence of pyuria (urine WBC count <= 5-10) make a UTI (urinary tract infection) very unlikely in a non-neutropenic adult (<=5% likelihood in many studies). A positive leukocyte esterase, nitrite and/or pyuria is a nonspecific result. This can be seen in conditions other than a UTI e.g. asymptomatic bacteriuria, gynecologic infections, sexually transmitted infections, and noninfectious conditions (positive predictive value for UTI around 50%) Performed By: #### T Kimo, SEVERINO SALGADO, AG PAT #### [facility] [address] [place] [address], [place] BILI Negative Normal Negative [facility] Comment on above: Order Comment: A neg ative leukocyte esterase AND negative nitrite test or absence of pyuria (urine WBC count <= 5-10) make a UTI (urinary tract infection) very unlikely in a non-neutropenic adult (<=5% likelihood in many studies). A positive leukocyte esterase, nitrite and/or pyuria is a nonspecific result. This can be seen in conditions other than a UTI e.g. asymptomatic bacteriuria, gynecologic infections, sexually transmitted infections, and noninfectious conditions (positive predictive value for UTI around 50%) Performed By: #### T NAOMI Downs ABTR, AG PAT #### [facility] [address] [place] [address], [place] BLOOD Negative Normal Negative [facility] Comment on above: Order Comment: A neg ative leukocyte esterase AND negative nitrite test or absence of pyuria (urine WBC count <= 5-10) make a UTI (urinary tract infection) very unlikely in a non-neutropenic adult (<=5% likelihood in many studies). A positive leukocyte esterase, nitrite and/or pyuria is a nonspecific result. This can be seen in conditions other than a UTI e.g. asymptomatic bacteriuria, gynecologic infections, sexually transmitted infections, and noninfectious conditions (positive predictive value for UTI around 50%) Performed By: #### T Kimo, LUANN SALGADOR, AG PAT #### [facility] [address] [place] [address], [place] COLOR Yellow Normal Colorless [facility] Comment on above: Order Comment: A neg ative leukocyte esterase AND negative nitrite test or absence of pyuria (urine WBC count <= 5-10) make a UTI (urinary tract infection) very unlikely in a non-neutropenic adult (<=5% likelihood in many studies). A positive leukocyte esterase, nitrite and/or pyuria is a nonspecific result. This can be seen in conditions other than a UTI e.g. asymptomatic bacteriuria, gynecologic infections, sexually transmitted infections, and noninfectious conditions (positive predictive value for UTI around 50%) Performed By: #### T S, ABIXander, ABTR, AG PAT #### [facility] [address] [place] [address], [place] KETONE Negative Normal Negative [facility] [facility] Comment on above: Order Comment: A neg ative leukocyte esterase AND negative nitrite test or absence of pyuria (urine WBC count <= 5-10) make a UTI (urinary tract infection) very unlikely in a non-neutropenic adult (<=5% likelihood in many studies). A positive leukocyte esterase, nitrite and/or pyuria is a nonspecific result. This can be seen in conditions other than a UTI e.g. asymptomatic bacteriuria, gynecologic infections, sexually transmitted infections, and noninfectious conditions (positive predictive value for UTI around 50%) Performed By: #### T S, ABIXander, ABTR, AG PAT #### [facility] [address] [place] [address], [place] LEUK Positive Abnormal Negative [facility] Comment on above: Order Comment: A neg ative leukocyte esterase AND negative nitrite test or absence of pyuria (urine WBC count <= 5-10) make a UTI (urinary tract infection) very unlikely in a non-neutropenic adult (<=5% likelihood in many studies). A positive leukocyte esterase, nitrite and/or pyuria is a nonspecific result. This can be seen in conditions other than a UTI e.g. asymptomatic bacteriuria, gynecologic infections, sexually transmitted infections, and noninfectious conditions (positive predictive value for UTI around 50%) Result Comment: Norm al urine specimens will not produce a positive reaction. Small amounts of leukocyte esterase, causing a positive reaction should be repeated, using a fresh urine specimen, from the same patient. Positive results require further testing for pyuria. Performed By: #### T S, ABIXander, ABTR, AG PAT #### [facility] [address] [place] [address], U MUCOUS Present Normal [facility] Comment on above: Order Comment: A neg ative leukocyte esterase AND negative nitrite test or absence of pyuria (urine WBC count <= 5-10) make a UTI (urinary tract infection) very unlikely in a non-neutropenic adult (<=5% likelihood in many studies). A positive leukocyte esterase, nitrite and/or pyuria is a nonspecific result. This can be seen in conditions other than a UTI e.g. asymptomatic bacteriuria, gynecologic infections, sexually transmitted infections, and noninfectious conditions (positive predictive value for UTI around 50%) Performed By: #### T S, ABIXander, LUANNR, AG PAT #### [facility] [address] [place] [address], U NITRITE Negative Normal Negative [facility] [facility] Comment on above: Order Comment: A neg ative leukocyte esterase AND negative nitrite test or absence of pyuria (urine WBC count <= 5-10) make a UTI (urinary tract infection) very unlikely in a non-neutropenic adult (<=5% likelihood in many studies). A positive leukocyte esterase, nitrite and/or pyuria is a nonspecific result. This can be seen in conditions other than a UTI e.g. asymptomatic bacteriuria, gynecologic infections, sexually transmitted infections, and noninfectious conditions (positive predictive value for UTI around 50%) Performed By: #### T Kimo ABILUANN TerrellR, AG PAT #### S PATHOLOGY LABORATORY [address] [place] [address], U PH 6.0 Normal 5.0-8.0 [facility] [facility] Comment on above: Order Comment: A neg ative leukocyte esterase AND negative nitrite test or absence of pyuria (urine WBC count <= 5-10) make a UTI (urinary tract infection) very unlikely in a non-neutropenic adult (<=5% likelihood in many studies). A positive leukocyte esterase, nitrite and/or pyuria is a nonspecific result. This can be seen in conditions other than a UTI e.g. asymptomatic bacteriuria, gynecologic infections, sexually transmitted infections, and noninfectious conditions (positive predictive value for UTI around 50%) Performed By: #### T S, ABIXander, ABTR, AG PAT #### [facility] [address], [place], U RBC 11-30 Abnormal 0-2 [facility] Comment on above: Order Comment: A neg ative leukocyte esterase AND negative nitrite test or absence of pyuria (urine WBC count <= 5-10) make a UTI (urinary tract infection) very unlikely in a non-neutropenic adult (<=5% likelihood in many studies). A positive leukocyte esterase, nitrite and/or pyuria is a nonspecific result. This can be seen in conditions other than a UTI e.g. asymptomatic bacteriuria, gynecologic infections, sexually transmitted infections, and noninfectious conditions (positive predictive value for UTI around 50%) Performed By: #### T S, ABID, ABTR, AG PAT #### [facility] PATHOLOGY LABORATORY [address], [place], U SG 1.028 Normal <=1.030 [facility] Comment on above: Order Comment: A neg ative leukocyte esterase AND negative nitrite test or absence of pyuria (urine WBC count <= 5-10) make a UTI (urinary tract infection) very unlikely in a non-neutropenic adult (<=5% likelihood in many studies). A positive leukocyte esterase, nitrite and/or pyuria is a nonspecific result. This can be seen in conditions other than a UTI e.g. asymptomatic bacteriuria, gynecologic infections, sexually transmitted infections, and noninfectious conditions (positive predictive value for UTI around 50%) Performed By: #### T S, ABID, ABTR, AG PAT #### [facility] PATHOLOGY LABORATORY [address], [place], U UROBILI Negative Normal Negative [facility] Comment on above: Order Comment: A neg ative leukocyte esterase AND negative nitrite test or absence of pyuria (urine WBC count <= 5-10) make a UTI (urinary tract infection) very unlikely in a non-neutropenic adult (<=5% likelihood in many studies). A positive leukocyte esterase, nitrite and/or pyuria is a nonspecific result. This can be seen in conditions other than a UTI e.g. asymptomatic bacteriuria, gynecologic infections, sexually transmitted infections, and noninfectious conditions (positive predictive value for UTI around 50%) Performed By: #### T S, ABID, ABTR, AG PAT #### S PATHOLOGY LABORATORY [address] [place] [address], U WBC 3-5 Abnormal 0-2 [facility] Comment on above: Order Comment: A neg ative leukocyte esterase AND negative nitrite test or absence of pyuria (urine WBC count <= 5-10) make a UTI (urinary tract infection) very unlikely in a non-neutropenic adult (<=5% likelihood in many studies). A positive leukocyte esterase, nitrite and/or pyuria is a nonspecific result. This can be seen in conditions other than a UTI e.g. asymptomatic bacteriuria, gynecologic infections, sexually transmitted infections, and noninfectious conditions (positive predictive value for UTI around 50%) Performed By: #### NAOMI North ABTR, AG PAT #### S PATHOLOGY LABORATORY [address] [place] [address], U YEAST Few Normal [facility] Comment on above: Order Comment: A neg ative leukocyte esterase AND negative nitrite test or absence of pyuria (urine WBC count <= 5-10) make a UTI (urinary tract infection) very unlikely in a non-neutropenic adult (<=5% likelihood in many studies). A positive leukocyte esterase, nitrite and/or pyuria is a nonspecific result. This can be seen in conditions other than a UTI e.g. asymptomatic bacteriuria, gynecologic infections, sexually transmitted infections, and noninfectious conditions (positive predictive value for UTI around 50%) Performed By: #### T NAOMI Downs ABTR, AG PAT #### S PATHOLOGY LABORATORY [address] [place] [address], HCG, QUANTITATIVEon 10-27-19 24 HCG Qn 62.1 m[IU]/mL High [facility] Interpretation and review of laboratory results Abnormal [facility] HCG 62.1 mIU/mL High <5.0 [facility] Comment on above: Performed By: #### T NAOMI Downs ABTR AG PAT #### S PATHOLOGY LABORATORY [address] [place] [address], Telephone Encounteron 2023 University Relations Vice President Authentication Interface Message Text Situation: Patient is calling to discuss test results. Background: Pt reports she had labs drawn today and would like to know the value of her HCG level Pt reports she was seen in the ED on 10/23/23 for vaginal bleeding in and was told she needed to have repeat labs and to schedule appt with an OBGYN provider. Appt was scheduled with OBGYN for today at 2:00 pm however patient states she can no go to this appt. Assessment: results have been finalized, and HCG level was provided to the patient however she has further questions regarding the lab including if she did have a miscarriage. Recommendation: This RN encouraged patient to go to scheduled appt for today however she is unable to make the appt. Will send high priority message to treating provider as well as ED test results pool for further review and recommendation as patient does not have PCP or OB. Peggy Gould RN Normal [facility] Telephone Encounteron 2023 University Relations Vice President Authentication Interface Message Text POSITIVE TEST DOCUMENTATION Patient appeared on positive test report on 10/24/23 Patient had a positive test on : 10/23/23 Chart reviewed. Patient has a New OB visit scheduled for Future Appointments (next 10) Provider Department Center 10/27/2023 2:00 PM Sandie Raymundo MD; [address] SUPERVISOR STAVE FINISHING NURSE [facility] SUPERVISOR STAVE FINISHING [facility] HEALT Normal [facility] Telephone Encounteron 2023 University Relations Vice President Authentication Interface Message Text Situation: Test results Background: 10/23/23 Assessment: Negative yeast, STD's Recommendation: Verbalized understanding. Stated she was having a hard time with recent miscarriage but declined nurse triage at this time. Normal [facility] ABO RH TYPEon 10-23-2023 ABO and Rh group Nom (Bld) Blood group O Rh(D) positive Normal The [employer] Comment on above: Performed By: #### T S, ABID, ABTR, AG PAT #### [facility] [address] [place] [address], [id number] ANTIBODY ID - LAB USE ONLYon 10-23-2023 ABID Anti-M Normal The [employer] Comment on above: Result Comment: Prew arms away. Must use blood warmer for blood transfusions. Dosing. Prewarms away. Must use blood warmer for blood transfusions. Corrected Result : 10/23/2023 22:52:06 : By Transfusion Medicine Performed By: #### Santhosh Downs ABIXander ABTR, AG PAT #### S PATHOLOGY LABORATORY [address] [place] [address], ANTIBODY TITERon 10-23-2023 ANTIBODY TITER INTERP Negative Normal The [facility] Comment on above: Result Comment: Anti -M titer Performed By: #### Santhosh Downs ABIXander ABTR, AG PAT #### S PATHOLOGY LABORATORY [address] [place] [address], ANTIGEN TYPING PATIENTon M ANTIGEN (MONOCLONAL) Negative Normal e [facility] Comment on above: Performed By: #### Santhosh Downs ABIXander ABTR, AG PAT #### S PATHOLOGY LABORATORY [address] [place] [address], PATIENT ANTIGEN INTERP Completed Normal [facility] Comment on above: Performed By: #### Santhosh Downs ABIXander, ABTR, AG PAT #### [facility] PATHOLOGY LABORATORY [address] [place] [address], CBC WITH DIFFERENTIALon Basophils (Bld) [#/Vol] 0.06 10*3/uL Normal 0.00-0.20 [facility] Comment on above: Performed By: #### Santhosh Downs ABIXander ABTR, AG PAT #### [facility] PATHOLOGY LAB[facility]ATORY [address] [place] [address], Basophils/100 WBC (Bld) 0.9 % Normal <=1.9 [facility] Comment on above: Performed By: #### T Kimo ABIXander, ABTR, AG PAT #### S PATHOLOGY LABORATORY [address] [place] [address], Eosinophils (Bld) [#/Vol] 0.24 10*3/uL Normal 0.00-0.70 [facility] Comment on above: Performed By: #### T Kimo, ABID, ABTR, AG PAT #### S PATHOLOGY LABORATORY [address] [place] [address], Eosinophils/100 WBC (Bld) 3.6 % Normal 0.1-4.0 [facility] Comment on above: Performed By: #### T Kimo ABIXander ABTR, AG PAT #### [facility] [address] [place] [address], Erythrocyte distribution width (RBC) [Ratio] 13.8 % Normal 11.5-14.5 [facility] Comment on above: Performed By: #### T Kimo ABIXander ABTR, AG PAT #### S PATHOLOGY LABORATORY [address] [place] [address], Hematocrit (Bld) [Volume fraction] 39.6 % Normal 36.0-46.0 [facility] Comment on above: Performed By: #### T Kimo, ABIXander ABTR, AG PAT #### [facility] [address] [place] [address], Hemoglobin (Bld) [Mass/Vol] 12.7 g/dL Normal 12.0-15.0 [facility] Comment on above: Performed By: #### Santhosh Downs ABIXander ABTR, AG PAT #### S PATHOLOGY LABORATORY [address] [place] [address], Lymphocytes (Bld) [#/Vol] 2.17 10*3/uL Normal 1.00-4.80 [facility] Comment on above: Performed By: #### Santhosh Downs ABIXander ABTR, AG PAT #### S PATHOLOGY LABORATORY [address] [place] [address], Lymphocytes/100 WBC (Bld) 33.3 % Normal 24.0-44.0 [facility] Comment on above: Performed By: #### T Kimo ABIXander ABTR, AG PAT #### S PATHOLOGY LABORATORY [address] [place] [address], MCH (RBC) [Entitic mass] 29.2 pg Normal 26.0-34.0 [facility] Comment on above: Performed By: #### T Kimo, ABIXander ABTR, AG PAT #### [facility] [address] [place] [address], MCHC (RBC) [Mass/Vol] 32.0 g/dL Normal 32.0-35.9 [facility] Comment on above: Performed By: #### T S, ABID, ABTR, AG PAT #### S PATHOLOGY LABORATORY [address] [place] [address], MCV (RBC) [Entitic vol] 91 fL Normal 80-100 [facility] Comment on above: Performed By: #### T S, ABID, ABTR, AG PAT #### S PATHOLOGY LABORATORY [address] [place] [address], MONOCYTE DISTRIBUTION WIDTH 17 Normal <=20 [facility] Comment on above: Performed By: #### T S, ABID, ABTR, AG PAT #### S PATHOLOGY LABORATORY [address] [place] [address], Monocytes (Bld) [#/Vol] 0.48 10*3/uL Normal 0.20-1.00 [facility] Comment on above: Performed By: #### T S, ABID, ABTR, AG PAT #### [facility] PATH[facility]ORY [address] [place] [address], Monocytes/100 WBC (Bld) 7.3 % Normal 2.0-11.0 [facility] Comment on above: Performed By: #### T S, ABID, ABTR, AG PAT #### S PATHOLOGY LABORATORY [address] [place] [address], Neutrophils (Bld) [#/Vol] 3.58 10*3/uL Normal 1.50-8.00 [facility] Comment on above: Performed By: #### T S, ABID, ABTR, AG PAT #### [facility] PATH[facility]ORY [address] [place] [address], Neutrophils/100 WBC (Bld) 54.9 % Normal 31.0-76.0 [facility] Comment on above: Performed By: #### T S, ABID, ABTR, AG PAT #### S PATHOLOGY LABORATORY [address] [place] [address], Platelet mean volume (Bld) [Entitic vol] 9.4 fL Normal 7.5-11.2 [facility] Comment on above: Performed By: #### T S, ABID, ABTR, AG PAT #### S PATHOLOGY LABORATORY [address], [place], Platelets (Bld) [#/Vol] 311 10*3/uL Normal 150-400 [facility] [facility] Comment on above: Performed By: #### T NAOMI Downs, LUANNR, AG PAT #### S PATHOLOGY LABORATORY [address], [place], RBC (Bld) [#/Vol] 4.34 10*6/uL Normal 4.00-5.20 [facility] [facility] Comment on above: Performed By: #### T S, ABIXander, ABTR, AG PAT #### S PATHOLOGY LABORATORY [address], [place], WBC (Bld) [#/Vol] 6.5 10*3/uL Normal 4.5-11.5 [facility] [facility] Comment on above: Performed By: #### T S, ABIXander, ABTR, AG PAT #### S PATHOLOGY LABORATORY [address], [place], ED Provider Noteson 10-23-19 University Relations Vice President Authentication Interface Message Text EMERGENCY DEPARTMENT - VISIT NOTE -------- HISTORY OF PRESENT ILLNESS ---- Patient presents with: Vaginal Bleeding - Abd cramping and vag spotting x2 days, +preg test Lithopress Operator: not needed - patient preferred language is Swazi. The history is provided by the Patient. Andrew Mena is a 28 year old female with a past medical history of MDD, substance use per chart review presenting to the ED for vaginal bleeding. LMP 09/07/23. Earlier today developed vaginal bleeding described as spotting, teradata architect than a period. No passage of clots. Assoc w/ abd pain described as cramping. No fevers, chills, n/v. No dysuria, frequency, urgency. Seen at [facility] 10/12/23 and had +hcg. Has not yet seen [employer] or had US this PAST HISTORY Pertinent Past History: History reviewed. No pertinent past medical history. Pertinent Family History: No family history on file. Pertinent Social History: Social History Occupational History Not on file Tobacco Use Smoking status: Not on file Smokeless tobacco: Not on file Substance and Sexual Activity Alcohol use: Not on file Drug use: Not on file Sexual activity: Not on file PHYSICAL EXAM BP 123/64 Pulse 80 Temp 98 ???F (36.7 ???C) (Oral) Resp 16 SpO2 98% Constitutional: Well developed, well nourished. Awake AND alert. No distress. Head: Atraumatic. Eyes: Pupils are equal. No injected conjunctivae. No scleral icterus. Neck: Normal movement. Supple. Cardiovascular: Well perfused. Pulmonary/Chest: No evidence of respiratory distress. Speaks in full sentences. Musculoskeletal: Moves all four extremities. No deformities. Abdomen soft, NT, nondistended w/o rebound/guarding splunk developer present. No external lesions. Mild vaginal bleeding, no discharge. External cervical os closed. No CMT or adnexal ttp Skin: Skin is warm and dry. No rashes on exposed skin. Neurological: Alert, awake, and appropriate. Normal speech. No acute focal neurological deficits are appreciated. Psychiatric: Good eye contact. Appropriate in content/context. Normal affect. MEDICAL DECISION MAKING and ED COURSE Nursing triage and assessment notes reviewed and incorporated Review of External (Non- ED) Notes: Office visit from reviewed and shows seen 10/12/23 for vaginal discharge, had +hcg; gonorrhea/chlamydia/tr ich/yeast/bv neg Management Decisions: Medications considered but not prescribed due to recently had neg STI testing, can f/u on results Social Determinants of Health that Impacted Management: Social Determinants of Health Tobacco Use: Medium Risk (10/12/2023) Received from [facility] Patient History Smoking Tobacco Use: Former Smokeless Tobacco Use: Never Passive Exposure: Not on file Alcohol Use: Not on file Financial Resource Strain: Not on File (09/17/2022) Received from [facility] Financial Resource Strain Financial Resource Strain: 0 Food Insecurity: Not on File (09/17/2022) Received from [facility] Food Insecurity Food: 0 Transportation Needs: Not on File (09/17/2022) Received from [facility] Transportation Needs Transportation: 0 Physical Activity: Not on File (09/17/2022) Received from [facility] Physical Activity Physical Activity: 0 Stress: Not on File (09/17/2022) Received from [facility] Stress Stress: 0 Social Connections: Not on File (09/17/2022) Received from [facility] Social Connections Social Connections and Isolation: 0 Intimate Partner Violence: Not on file Depression: Not at risk (05/29/2018) Received from [facility] PHQ-2 PHQ2 Score: 0 Housing Stability: Not on File (09/17/2022) Received from [facility] Housing Stability Housin Independent Test Interpretation: Lab studies reviewed, see ed course Ultrasound studies performed by radiology personally reviewed and interpreted, no IUP seen. Final decision-making pending radiology read. Course AND Interpretation of Results: ED Course as of 10/23/23 1554 ThuOctober 23, 2023 1331 Urinalysis(!): Color Light Yellow Appearance Clear pH 6.0 Spec [place] 1.024 Protein Negative Blood Small(!) Bilirubin Negative Urobilinogen Negative Ketones Negative Leuk. Esterase Negative Nitrite Negative Glucose Negative WBC 0-2 RBC 3-5(!) Mucous Threads Present Squamous Epitheleal 3-5 Blood c/w vaginal bleeding. No evidence of uti [JS] 1331 Complete Blood Count W/Diff: WBC 6.5 RBC 4.34 Hemoglobin 12.7 Hematocrit 39.6 MCV 91 MCH 29.2 MCHC 32.0 Platelet 311 RDW-CV% 13.8 MPV 9.4 Neutrophils 54.9 Neutrophil # 3.58 Lymphocytes 33.3 Lymph Absolute 2.17 Monocytes 7.3 Monocyte Absolute 0.48 Eosinophil 3.6 Eosinophil Absolute 0.24 Basophils 0.9 Basophil # 0.06 MDW 17 CBC is (more content not included)... Normal [facility] GC/CHLAMYDIA AMPLIFICATIONon 10-23-2023 GC/CHLAMYDIA AMPLIFICATION GC AMPLIFICATION: Negative CHLAMYDIA AMPLIFICATION: Negative Normal Negative [facility] Comment on above: Order Comment: This test is performed using an automated nucleic acid amplification assay ([employer] Performed By: #### G CA ####[facility] [id number] [place], [place] HCG URINEon 10-23-2023 Beta HCG ( test) Ql (U) Positive Abnormal Negative [facility] Comment on above: Performed By: #### T Kimo, ABIXander, ABTR, AG PAT #### [facility] [address] [place] [address], HCG, QUANTITATIVEon 10-23-19 24 HCG 173.5 mIU/mL High <5.0 [facility] Comment on above: Performed By: #### T S, ABIXander, ABTR, AG PAT #### [facility] [address] [place] [address], TONY PREP, FUNGUSon TONY PREP, FUNGUS CR TONY: No Yeast Normal Negative [facility] Comment on above: Performed By: #### C R WET, CR TONY ####[facility] [id number] [place], [place] TYPE AND SCREENon 10-23-2023 ABO and Rh group Nom (Bld) Blood group O Rh(D) positive Normal [facility] Comment on above: Performed By: #### T S, ABID, ABTR, AG PAT #### [facility] [address] [place] [address], ABO and Rh group Nom (Bld) No Previous Results Normal [facility] Comment on above: Performed By: #### T S, ABID, ABTR, AG PAT #### [facility] [address] [place] [address], ABSC INT Positive Normal [facility] Comment on above: Performed By: #### T S, NAOMI, ABTR, AG PAT #### S PATHOLOGY LABORATORY [address], [place], URINALYSISon 10-23-2023 Glucose Ql (U) Negative Normal Negative [facility] Comment on above: Order Comment: A neg ative leukocyte esterase AND negative nitrite test or absence of pyuria (urine WBC count <= 5-10) make a UTI (urinary tract infection) very unlikely in a non-neutropenic adult (<=5% likelihood in many studies). A positive leukocyte esterase, nitrite and/or pyuria is a nonspecific result. This can be seen in conditions other than a UTI e.g. asymptomatic bacteriuria, gynecologic infections, sexually transmitted infections, and noninfectious conditions (positive predictive value for UTI around 50%) Performed By: #### u rinalysis ####[facility] PATHOLOGY [id number] [place], [place], SQUAMOUS EPITHELIAL 3-5 Normal 0-10 [facility] [facility] Comment on above: Order Comment: A neg ative leukocyte esterase AND negative nitrite test or absence of pyuria (urine WBC count <= 5-10) make a UTI (urinary tract infection) very unlikely in a non-neutropenic adult (<=5% likelihood in many studies). A positive leukocyte esterase, nitrite and/or pyuria is a nonspecific result. This can be seen in conditions other than a UTI e.g. asymptomatic bacteriuria, gynecologic infections, sexually transmitted infections, and noninfectious conditions (positive predictive value for UTI around 50%) Performed By: #### u rinalysis ####[facility] PATHOLOGY [id number] [place], [place], U APPEAR Clear Normal Clear [facility] [facility] Comment on above: Order Comment: A neg ative leukocyte esterase AND negative nitrite test or absence of pyuria (urine WBC count <= 5-10) make a UTI (urinary tract infection) very unlikely in a non-neutropenic adult (<=5% likelihood in many studies). A positive leukocyte esterase, nitrite and/or pyuria is a nonspecific result. This can be seen in conditions other than a UTI e.g. asymptomatic bacteriuria, gynecologic infections, sexually transmitted infections, and noninfectious conditions (positive predictive value for UTI around 50%) Performed By: #### u rinalysis ####[facility] PATHOLOGY [id number] [place], [place], U BILI Negative Normal Negative [facility] Comment on above: Order Comment: A neg ative leukocyte esterase AND negative nitrite test or absence of pyuria (urine WBC count <= 5-10) make a UTI (urinary tract infection) very unlikely in a non-neutropenic adult (<=5% likelihood in many studies). A positive leukocyte esterase, nitrite and/or pyuria is a nonspecific result. This can be seen in conditions other than a UTI e.g. asymptomatic bacteriuria, gynecologic infections, sexually transmitted infections, and noninfectious conditions (positive predictive value for UTI around 50%) Performed By: #### u rinalysis ####[facility] PATHOLOGY [id number] [place] [address], U BLOOD Small Abnormal Negative [facility] Comment on above: Order Comment: A neg ative leukocyte esterase AND negative nitrite test or absence of pyuria (urine WBC count <= 5-10) make a UTI (urinary tract infection) very unlikely in a non-neutropenic adult (<=5% likelihood in many studies). A positive leukocyte esterase, nitrite and/or pyuria is a nonspecific result. This can be seen in conditions other than a UTI e.g. asymptomatic bacteriuria, gynecologic infections, sexually transmitted infections, and noninfectious conditions (positive predictive value for UTI around 50%) Performed By: #### u rinalysis ####[facility] PATHOLOGY [id number] [place] [address], U COLOR Light Yellow Normal Colorless [facility] Comment on above: Order Comment: A neg ative leukocyte esterase AND negative nitrite test or absence of pyuria (urine WBC count <= 5-10) make a UTI (urinary tract infection) very unlikely in a non-neutropenic adult (<=5% likelihood in many studies). A positive leukocyte esterase, nitrite and/or pyuria is a nonspecific result. This can be seen in conditions other than a UTI e.g. asymptomatic bacteriuria, gynecologic infections, sexually transmitted infections, and noninfectious conditions (positive predictive value for UTI around 50%) Performed By: #### u rinalysis ####[facility] [id number] [place], [place], [place] KETONE Negative Normal Negative [facility] Comment on above: Order Comment: A neg ative leukocyte esterase AND negative nitrite test or absence of pyuria (urine WBC count <= 5-10) make a UTI (urinary tract infection) very unlikely in a non-neutropenic adult (<=5% likelihood in many studies). A positive leukocyte esterase, nitrite and/or pyuria is a nonspecific result. This can be seen in conditions other than a UTI e.g. asymptomatic bacteriuria, gynecologic infections, sexually transmitted infections, and noninfectious conditions (positive predictive value for UTI around 50%) Performed By: #### u rinalysis ####[facility] PATHOLOGY [id number] [place], [place], [place] LEUK Negative Normal Negative [facility] [facility] Comment on above: Order Comment: A neg ative leukocyte esterase AND negative nitrite test or absence of pyuria (urine WBC count <= 5-10) make a UTI (urinary tract infection) very unlikely in a non-neutropenic adult (<=5% likelihood in many studies). A positive leukocyte esterase, nitrite and/or pyuria is a nonspecific result. This can be seen in conditions other than a UTI e.g. asymptomatic bacteriuria, gynecologic infections, sexually transmitted infections, and noninfectious conditions (positive predictive value for UTI around 50%) Performed By: #### u rinalysis ####[facility] PATHOLOGY [id number] [place], [place], [place] MUCOUS Present Normal [facility] [facility] Comment on above: Order Comment: A neg ative leukocyte esterase AND negative nitrite test or absence of pyuria (urine WBC count <= 5-10) make a UTI (urinary tract infection) very unlikely in a non-neutropenic adult (<=5% likelihood in many studies). A positive leukocyte esterase, nitrite and/or pyuria is a nonspecific result. This can be seen in conditions other than a UTI e.g. asymptomatic bacteriuria, gynecologic infections, sexually transmitted infections, and noninfectious conditions (positive predictive value for UTI around 50%) Performed By: #### u rinalysis ####[facility] PATHOLOGY [id number] [place], [place], [place] NITRITE Negative Normal Negative [facility] Comment on above: Order Comment: A neg ative leukocyte esterase AND negative nitrite test or absence of pyuria (urine WBC count <= 5-10) make a UTI (urinary tract infection) very unlikely in a non-neutropenic adult (<=5% likelihood in many studies). A positive leukocyte esterase, nitrite and/or pyuria is a nonspecific result. This can be seen in conditions other than a UTI e.g. asymptomatic bacteriuria, gynecologic infections, sexually transmitted infections, and noninfectious conditions (positive predictive value for UTI around 50%) Performed By: #### u rinalysis ####S PATHOLOGY [id number] [place], [place], [place] PH 6.0 Normal 5.0-8.0 [facility] [facility] Comment on above: Order Comment: A neg ative leukocyte esterase AND negative nitrite test or absence of pyuria (urine WBC count <= 5-10) make a UTI (urinary tract infection) very unlikely in a non-neutropenic adult (<=5% likelihood in many studies). A positive leukocyte esterase, nitrite and/or pyuria is a nonspecific result. This can be seen in conditions other than a UTI e.g. asymptomatic bacteriuria, gynecologic infections, sexually transmitted infections, and noninfectious conditions (positive predictive value for UTI around 50%) Performed By: #### u rinalysis ####S PATHOLOGY [id number] [place], [place], [place] PROTEIN Negative Normal Negative [facility] Comment on above: Order Comment: A neg ative leukocyte esterase AND negative nitrite test or absence of pyuria (urine WBC count <= 5-10) make a UTI (urinary tract infection) very unlikely in a non-neutropenic adult (<=5% likelihood in many studies). A positive leukocyte esterase, nitrite and/or pyuria is a nonspecific result. This can be seen in conditions other than a UTI e.g. asymptomatic bacteriuria, gynecologic infections, sexually transmitted infections, and noninfectious conditions (positive predictive value for UTI around 50%) Performed By: #### u rinalysis ####S PATHOLOGY [id number] [place], [place], [place] RBC 3-5 Abnormal 0-2 [facility] [facility] Comment on above: Order Comment: A neg ative leukocyte esterase AND negative nitrite test or absence of pyuria (urine WBC count <= 5-10) make a UTI (urinary tract infection) very unlikely in a non-neutropenic adult (<=5% likelihood in many studies). A positive leukocyte esterase, nitrite and/or pyuria is a nonspecific result. This can be seen in conditions other than a UTI e.g. asymptomatic bacteriuria, gynecologic infections, sexually transmitted infections, and noninfectious conditions (positive predictive value for UTI around 50%) Performed By: #### u rinalysis ####S PATHOLOGY [id number] [place], [place], [place] SG 1.024 Normal <=1.030 [facility] Comment on above: Order Comment: A neg ative leukocyte esterase AND negative nitrite test or absence of pyuria (urine WBC count <= 5-10) make a UTI (urinary tract infection) very unlikely in a non-neutropenic adult (<=5% likelihood in many studies). A positive leukocyte esterase, nitrite and/or pyuria is a nonspecific result. This can be seen in conditions other than a UTI e.g. asymptomatic bacteriuria, gynecologic infections, sexually transmitted infections, and noninfectious conditions (positive predictive value for UTI around 50%) Performed By: #### u rinalysis ####[facility] PATHOLOGY [id number] [place], [place], [place] UROBILI Negative Normal Negative [facility] Comment on above: Order Comment: A neg ative leukocyte esterase AND negative nitrite test or absence of pyuria (urine WBC count <= 5-10) make a UTI (urinary tract infection) very unlikely in a non-neutropenic adult (<=5% likelihood in many studies). A positive leukocyte esterase, nitrite and/or pyuria is a nonspecific result. This can be seen in conditions other than a UTI e.g. asymptomatic bacteriuria, gynecologic infections, sexually transmitted infections, and noninfectious conditions (positive predictive value for UTI around 50%) Performed By: #### u rinalysis ####S PATHOLOGY [id number] [place], [place], [place] WBC 0-2 Normal 0-2 [facility] Comment on above: Order Comment: A neg ative leukocyte esterase AND negative nitrite test or absence of pyuria (urine WBC count <= 5-10) make a UTI (urinary tract infection) very unlikely in a non-neutropenic adult (<=5% likelihood in many studies). A positive leukocyte esterase, nitrite and/or pyuria is a nonspecific result. This can be seen in conditions other than a UTI e.g. asymptomatic bacteriuria, gynecologic infections, sexually transmitted infections, and noninfectious conditions (positive predictive value for UTI around 50%) Performed By: #### u rinalysis ####[facility] [id number] [place], [address] US 1ST TRI/OB TRANSVAG (MINOO) on 10-23-2023 US 1ST TRI/OB TRANSVAG (MINOO) EXAMINATION: US 1ST TRI/OB TRANSVAG (MINOO) 10/23/2023 03:23 PM CLINICAL HISTORY: 5-6 weeks OB, spotting and cramping ASSOCIATED DIAGNOSIS: ORDERING PROVIDER: RENETTA MCCORMACK TECHNOLOGISTS NOTE: Positive preg urine. Quant- 173.5. pt sts had some brown when wiping which has stopped. No gest sac seen. Lmp 09-17-2023 COMPARISON: None TECHNIQUE: Ultrasound real time scan with image documentation of the first trimester gravid uterus and ovaries was performed using both trans abdominal and transvaginal approach. FINDINGS: The uterus is normal in size and echogenicity. No intrauterine or extrauterine gestational sac identified. Nabothian cysts are present in the cervix. Both ovaries are normal in size and appearance. The corpus luteum of resides within the right ovary. There is no adnexal mass. No significant volume of free fluid. IMPRESSION: No intrauterine or extrauterine gestational sac identified. The site of implantation remains undetermined. Close follow-up with serial quantitive beta HCG +/- ultrasound recommended. MACRO: None Normal [facility] WET MOUNT PREPARATIONon 05-0 WET MOUNT PREPARATION CLUE CELLS: Rare (<5%) WBC: 0-2 TRICHOMONAS REFLEX: None Seen YEAST: None Seen Normal None Seen [facility] Comment on above: Performed By: #### C R WET, CR TONY ####[facility] [id number] [place], [place] Amorphous sediment detection in urine sediment by light microscopyOrdered By: Vipul Gagnon on 10-14-2023 Amorphous sediment LM Ql (Urine sed) 1+ URATE [facility] Basophil percentageOrdered B y: Vipul Gagnon on 10-14-2023 Basophil percentage 0 SEEN /hpf 0-5 [facility] Bilirubin Test strip Ql (U)O rdered By: Vipul Gagnon on 10-14-2023 Bilirubin Ql (U) Negative Negative [facility] Ketones Test strip Ql (U)Ord ered By: Vipul Gagnon on 10-14-2023 Ketones Ql (U) Negative Negative [facility] Mucus LM Ql (Urine sed)Order ed By: Vipul Gagnon on 10-14-2023 Mucus Ql (Urine sed) 0 SEEN /hpf [facility] Nitrite Test strip Ql (U)Ord ered By: Vipul Gagnon on 10-14-2023 Nitrite Ql (U) Negative Negative [facility] No Panel InformationOrdered By: Vipul Gagnon on 10-14-2023 Urine RBC 0-5 SEEN /hpf 0-5 [facility] Protein Test strip Ql (U)Ord ered By: Vipul Gagnon on 10-14-2023 Protein Ql (U) Negative Negative [facility] Serum or plasma choriogonado tropin detectionOrdered By: Vipul Gagnon on 10-14-2023 HCG ( test) Ql 91 mIU/mL <4 [facility] Comment on above: hCG levels with Gest ational AgeGestational Age hCG mIU/mL (IU/L)0.2 - 1 week 5 - 501-2 weeks 50 - 5002-3 weeks 100 - 83853-6 weeks 500 - 534500-4 weeks 1000 - 622931-5 weeks 77738 - 100,0006-8 weeks 97685 - 200,0002-3 months 05330 - 100,000 Squamous epithelial cells de tection in urine sediment by light microscopyOrdered By: Vipul Gagnon on 10-14-2023 Epithelial cells.squamous LM Ql (Urine sed) 0-5 SEEN /hpf 5-10 [facility] Urine blood detectionOrdered By: Vipul Gagnon on 10-14-2023 RBC Ql (U) 10 /ul Negative [facility] Urine clarityOrdered By: Jorge Gagnon on 10-14-2023 Clarity (U) Sl. Cloudy Clear [facility] Urine color determinationOrd ered By: Vipul Gagnon on 10-14-2023 Color (U) Yellow Yellow [facility] Urine glucose detectionOrder ed By: Vipul Gagnon on 10-14-2023 Glucose Ql (U) Normal mg/dl Normal [facility] Urine leukocyte esterase det ection by dipstickOrdered By: Vipul Gagnon on 10-14-2023 Leukocyte esterase Test strip Ql (U) Negative Negative [facility] Urine pHOrdered By: Vipul damian on 10-14-2023 pH (U) 6.5 [pH] 5.0 - 8.0 [facility] Urine sediment bacteria coun t by microscopy (number/high power field)Ordered By: Vipul Gagnon on 10-14-2023 Bacteria LM.HPF (Urine sed) [#/Area] 0 /[HPF] None Seen [facility] Urine specific gravity measu rementOrdered By: Vipul Gagnon on 10-14-2023 Specific gravity (U) [Rel density] 1.020 1.002-1.030 [facility] Urine urobilinogen measureme ntOrdered By: Vipul Gagnon on 10-14-2023 Urobilinogen Ql (U) Normal mg/dl Normal [facility] UA DIP, URINE (POC)on 2023 BILIRUBIN UA (POCT) Negative Negative [facility] CLARITY UA (POCT) Cloudy [facility] COLOR UA (POCT) Dark yellow [facility] GLUCOSE UA (POCT) Negative Negative mg/dL [facility] Hemoglobin Ql (U) Trace-intact Abnormal Negative [facility] Interpretation and review of laboratory results Abnormal [facility] KETONE UA (POCT) Negative Negative mg/dL [facility] LEUKOCYTES UA (POCT) Negative Negative [facility] NITRITE UA (POCT) Negative Negative [facility] PH UA (POCT) 6.0 4.5 - 8.0 [facility] Protein Ql (U) Negative Negative mg/dL [facility] SPECIFIC GRAVITY UA (POCT) 1.025 1.005 - 1.030 [facility] UROBILINOGEN UA (POCT) 0.2 Normal E.U./d L [facility] Location:[facility] [place], [address] [facility], [place], [address] [facility] POINT OF CARE [facility] UA DIP,URINE HCG (POC)on Beta HCG ( test) Ql (U) Positive Abnormal Negative [facility] Comment on above: Location:[facility], [address] [facility], [place], [address] Interpretation and review of laboratory results Abnormal [facility] Quality Control Industrial Engineer (POCT) Internal QC OK [facility] Location:[facility], [address] [facility], [facility] [address] [facility] POINT OF CARE [facility] BACTERIAL VAGINOSIS NAATon 0 09-30-2023 Lactobacillus crispatus+gasseri+eve enii + Gardnerella vaginalis + Atopobium vaginae rRNA LILIANE+probe Ql (Vag fld) Negative Negative for bacterial vaginosis [facility] C. trachomatis+N. gonorrhoea e DNA LILIANE+probe Ql (Unsp spec)on 09-30-2023 C. trachomatis rRNA LILIANE+probe Ql (Unsp spec) Negative Negative for Chlamydia trachomatis by amplificaton [facility] N. gonorrhoeae rRNA LILIANE+probe Ql (Unsp spec) Negative Negative for Neisseria gonorrhoeae by amplification [facility] EULALIA/TRICHOMONAS NAATon 0 09-30-2023 C. glabrata RNA LILIANE+probe Ql (Vag fld) Negative Negative for Eulalia glabrata [facility] Eulalia sp DNA LILIANE+probe Ql (Vag fld) Negative Negative for Eulalia species [facility] T. vaginalis DNA LILIANE+probe Ql (Unsp spec) Negative Negative for Trichomonas vaginalis by amplification [facility] UA DIP, URINE (POC)on 2023 BILIRUBIN UA (POCT) Negative Negative [facility] CLARITY UA (POCT) Clear [facility] COLOR UA (POCT) Yellow [facility] GLUCOSE UA (POCT) Negative Negative mg/dL [facility] Hemoglobin Ql (U) Negative Negative [facility] KETONE UA (POCT) Trace Negative mg/dL [facility] LEUKOCYTES UA (POCT) Negative Negative [facility] NITRITE UA (POCT) Negative Negative [facility] PH UA (POCT) 7.0 4.5 - 8.0 [facility] Protein Ql (U) Negative Negative mg/dL [facility] SPECIFIC GRAVITY UA (POCT) 1.025 1.005 - 1.030 [facility] UROBILINOGEN UA (POCT) 0.2 E.U./dL Normal E.U./ dL [facility] UA DIP,URINE HCG (POC)on Beta HCG ( test) Ql (U) Negative Negative [facility] Quality Control Industrial Engineer (POCT) Internal QC OK [facility] C. trachomatis and N. gonorr hoeae DNA LILIANE+probe Nom (Unsp spec)on 09-10-2023 C. trachomatis rRNA LILIANE+probe Ql (Unsp spec) Negative Normal Negative [facility] Comment on above: Order Comment: The A PTIMA Combo 2 assay is FDA-approved NAAT using target capture for the in vitro qualitative detection and differentiation of ribosomal RNA (rRNA) for Chlamydia trachomatis and Neisseria gonorrhoeae testing on clinician-collected endocervical, PreservCyt solution liquid Pap specimens, vaginal, throat, rectal, and male urethral swab specimens; patient-collected vaginal swab specimens, and female and male urine specimens from symptomatic and asymptomatic individuals. Samples from all other sites are not validated for this method. Performed By: #### 3 6903-3 #### FRANKIE Joiner ([id number]) [facility] ([facility]) [address] [place] [address] N. gonorrhoeae DNA Probe+sig amp Ql (Unsp spec) Negative Normal Negative [facility] Comment on above: Order Comment: The A PTIMA Combo 2 assay is FDA-approved NAAT using target capture for the in vitro qualitative detection and differentiation of ribosomal RNA (rRNA) for Chlamydia trachomatis and Neisseria gonorrhoeae testing on clinician-collected endocervical, PreservCyt solution liquid Pap specimens, vaginal, throat, rectal, and male urethral swab specimens; patient-collected vaginal swab specimens, and female and male urine specimens from symptomatic and asymptomatic individuals. Samples from all other sites are not validated for this method. Performed By: #### 3 6903-3 #### FRANKIE Joiner ([id number]) [facility] ([facility]) [address] [place] [address] Choriogonadotropin.beta subu niton 09-10-2023 HCG.beta subunit Qn m[IU]/mL Normal <5 [facility] Comment on above: Order Comment: Total HCG measurement is performed using the Siemens AtellPrestoBox immunoassay which detects intact HCG and free beta HCG subunit. This test is not indicated for use as a tumor marker. HCG testing is performed using a different test methodology at [facility] than other [facility]. Direct result comparison should only be made within the same method. Performed By: #### 2 1198-7 #### FRANKIE Joiner ([id number]) [facility] ([facility]) [address] [place] [address] Comprehensive metabolic 2000 panelon 09-10-2023 Albumin BCP dye [Mass/Vol] 4.6 g/dL 3.4 - 5.0 g/dL [facility] ALP [Catalytic activity/Vol] 66 U/L 33 - 110 U/L [facility] ALT With P-5'-P [Catalytic activity/Vol] 19 U/L 7 - 45 U/L [facility] Comment on above: Patients treated wit h Sulfasalazine may generate falsely decreased results for ALT. Anion gap [Moles/Vol] 14 mmol/L 10 - 20 mmol/L [facility] AST With P-5'-P [Catalytic activity/Vol] 23 U/L 9 - 39 U/L [facility] Bilirubin [Mass/Vol] 0.3 mg/dL 0.0 - 1 .2 mg/dL [facility] Calcium [Mass/Vol] 9.6 mg/dL 8.6 - 10. 6 mg/dL [facility] Chloride [Moles/Vol] 108 mmol/L High 98 - 10 7 mmol/L [facility] CO2 [Moles/Vol] 21 mmol/L 21 - 32 mmol/L [facility] Creatinine [Mass/Vol] 0.56 mg/dL 0.50 - 1.05 mg/dL [facility] eGFR - PINF [facility] Comment on above: Calculations of smooth mated GFR are performed using the 2020 CKD-EPI Study Refit equation without the race variable for the IDMS-Traceable creatinine methods. https://jasn.asnjournals.org/content/early//ASN.22353 89223 Glucose [Mass/Vol] 97 mg/dL 74 - 99 mg/dL [facility] Interpretation and review of laboratory results Abnormal [facility] Potassium [Moles/Vol] 4.5 mmol/L 3.5 - 5.3 mmol/L [facility] Protein [Mass/Vol] 7.2 g/dL 6.4 - 8.2 g/dL [facility] Sodium [Moles/Vol] 138 mmol/L 136 - 145 mmol/L [facility] Urea nitrogen [Mass/Vol] 11 mg/dL 6 - 23 mg/dL [facility] Albumin BCP dye [Mass/Vol] 4.6 g/dL Normal 3.4-5.0 [facility] Comment on above: Performed By: #### 2 4323-8 #### FRANKIE Joiner ([id number]) [facility] ([facility]) [id number] [place] [address] ALP [Catalytic activity/Vol] 66 U/L Normal 33-110 [facility] Comment on above: Performed By: #### 2 4323-8 #### FRANKIE Joiner ([id number]) [facility] ([facility]) [id number] [place] [address] ALT With P-5'-P [Catalytic activity/Vol] 19 U/L Normal 7-45 [facility] Comment on above: Result Comment: Kymberly ents treated with Sulfasalazine may generate falsely decreased results for ALT. Performed By: #### 2 4323-8 #### FRANKIE Joiner ([id number]) [facility] ([facility]) [address] [place] [address] Anion gap [Moles/Vol] 14 mmol/L Normal 10-20 [facility] Comment on above: Performed By: #### 2 4323-8 #### FRANKIE Joiner ([id number]) [facility] ([facility]) [id number] [place] [address] AST With P-5'-P [Catalytic activity/Vol] 23 U/L Normal 9-39 [facility] Comment on above: Performed By: #### 2 4323-8 #### FRANKIE Joiner ([id number]) [facility] ([facility]) [id number] [place] [address] Bilirubin [Mass/Vol] 0.3 mg/dL Normal 0.0-1.2 [facility] Comment on above: Performed By: #### 2 4323-8 #### FRANKIE Joiner ([id number]) [facility] ([facility]) [id number] [place] [address]162 Calcium [Mass/Vol] 9.6 mg/dL Normal 8.6-10.6 [facility] Comment on above: Performed By: #### 2 4323-8 #### FRANKIE Joiner ([id number]) [facility] ([facility]) [address] [place] [address]300 Chloride [Moles/Vol] 108 mmol/L High 98-107 [facility] Comment on above: Performed By: #### 2 4323-8 #### FRANKIE Joiner ([id number]) [facility] ([facility]) [id number] [place] [address] CO2 [Moles/Vol] 21 mmol/L Normal 21-32 [facility] Comment on above: Performed By: #### 2 4323-8 #### FRANKIE Joiner ([id number]) [facility] ([facility]) [id number] [place] [address] Creatinine [Mass/Vol] 0.56 mg/dL Normal 0.50-1.05 [facility] Comment on above: Performed By: #### 2 4323-8 #### FRANKIE Joiner ([id number]) [facility] ([facility]) [address] [place] [address] GFR/1.73 sq M.predicted MDRD (S/P/Bld) [Vol rate/Area] mL/min/{1.73_m2} Normal >60 [facility] Comment on above: Result Comment: Calc ulations of estimated GFR are performed using the 2020 CKD-EPI Study Refit equation without the race variable for the IDMS-Traceable creatinine methods. https://jasn.asnjournals.org/content//ASN.78531 84891 Performed By: #### 2 4323-8 #### FRANKIE Joiner ([id number]) [facility] ([facility]) [address] [place] [address] Glucose [Mass/Vol] 97 mg/dL Normal 74-99 [facility] Comment on above: Performed By: #### 2 4323-8 #### FRANKIE PASCAL L ([id number]) [facility] ([facility]) [address] [place] [address] Potassium [Moles/Vol] 4.5 mmol/L Normal 3.5-5.3 [facility] Comment on above: Performed By: #### 2 4323-8 #### FRANKIE PASCAL L ([id number]) [facility] ([facility]) [id number] [place] [address]22 Protein [Mass/Vol] 7.2 g/dL Normal 6.4-8.2 [facility] Comment on above: Performed By: #### 2 4323-8 #### FRANKIE PASCAL L ([id number]) [facility] ([facility]) [id number] [place] [address]7501 Sodium [Moles/Vol] 138 mmol/L Normal 136-145 [facility] Comment on above: Performed By: #### 2 4323-8 #### FRANKIE JOHNSONMOTZER L ([id number]) [facility] ([facility]) [address] [place] [address] Urea nitrogen [Mass/Vol] 11 mg/dL Normal 6-23 [facility] Comment on above: Performed By: #### 2 4323-8 #### FRANKIE JOHNSONMOTZRANJITH L ([id number]) [facility] ([facility]) [id number] [place] [address]27 HCG ( test) Ql (U)O rdered By: Jessica Luna on 09-10-2023 Interpretation and review of laboratory results Normal [facility] Preg Test, Ur Negative Negative [facility] HCG.beta subunit Qnon 2023 Interpretation and review of laboratory results Normal [facility] Total HCG measuremen t is performed using the Siemens AtellPrestoBox immunoassay which detects intact HCG and free beta HCG subunit. This test is not indicated for use as a tumor marker. HCG testing is performed using a different test methodology at [facility] than other [facility]. Direct result comparison should only be made within the same method. [facility] HCV RNA panel LILIANE+probeon HCV RNA LILIANE+probe [Log units/Vol] Normal [facility] Comment on above: Order Comment: Repor table Range: 15-100,000,000 IU/mL. The won HCV is an in vitro nucleic acid amplification test for both the detection and quantitation of hepatitis C virus (HCV) RNA, in human EDTA plasma or serum, of HCV antibody positive or HCV-infected individuals on the won StarMobile0/8800 Systems. Dual probes are used to detect and quantify, but not discriminate HCV genotypes 1-6. Though rare, mutations within the highly conserved regions of a viral genome covered by won HCV may affect primer and/or probe binding resulting in the under-quantitation of virus or failure to detect the presence of virus. The analytical quantification range of this assay has been determined to be 15 to 100,000,000 IU/ml in plasma. If the assay DETECTED the presence of the virus but was not able to accurately quantify the number of copies, the test result will be reported as <15 Detected or >100,000,000 Detected. The won??? HCV is intended for use as an aid in the diagnosis of HCV infection in the following populations: individuals with antibody evidence of HCV with evidence of liver disease, individuals suspected to be actively infected with HCV antibody evidence, and individuals at risk for HCV infection with antibodies to HCV. Detection of HCV RNA indicates that the virus is replicating and therefore is evidence of active infection. The won HCV is intended for use as an aid in the management of HCV infected patients undergoing anti-viral therapy. The assay can be used to measure HCV RNA levels at baseline, during treatment, at the end of treatment, and at the end of follow up of treatment to determine sustained or non-sustained viral response. The results must be interpreted within the context of all relevant clinical and laboratory findings. This test is approved by the US Food and Drug Administration, and its performance characteristics verified by the [facility], Department of Pathology, [facility]. Result Comment: Not calculated Performed By: #### 5 0023-1 #### FRANKIE Joiner ([id number]) [facility] ([facility]) [address] [place] [address] HCV RNA LILIANE+probe Qn Not detected Normal Not detected [facility] Comment on above: Order Comment: Repor table Range: 15-100,000,000 IU/mL. The won HCV is an in vitro nucleic acid amplification test for both the detection and quantitation of hepatitis C virus (HCV) RNA, in human EDTA plasma or serum, of HCV antibody positive or HCV-infected individuals on the won StarMobile0/8800 Systems. Dual probes are used to detect and quantify, but not discriminate HCV genotypes 1-6. Though rare, mutations within the highly conserved regions of a viral genome covered by won HCV may affect primer and/or probe binding resulting in the under-quantitation of virus or failure to detect the presence of virus. The analytical quantification range of this assay has been determined to be 15 to 100,000,000 IU/ml in plasma. If the assay DETECTED the presence of the virus but was not able to accurately quantify the number of copies, the test result will be reported as <15 Detected or >100,000,000 Detected. The won??? HCV is intended for use as an aid in the diagnosis of HCV infection in the following populations: individuals with antibody evidence of HCV with evidence of liver disease, individuals suspected to be actively infected with HCV antibody evidence, and individuals at risk for HCV infection with antibodies to HCV. Detection of HCV RNA indicates that the virus is replicating and therefore is evidence of active infection. The won HCV is intended for use as an aid in the management of HCV infected patients undergoing anti-viral therapy. The assay can be used to measure HCV RNA levels at baseline, during treatment, at the end of treatment, and at the end of follow up of treatment to determine sustained or non-sustained viral response. The results must be interpreted within the context of all relevant clinical and laboratory findings. This test is approved by the US Food and Drug Administration, and its performance characteristics verified by the [facility] Diagnostic Laboratory, Department of Pathology, [facility]. Performed By: #### 5 0023-1 #### FRANKIE Joiner ([id number]) [facility] ([facility]) [address] [place] [address] HIV 1+2 Ab+HIV1 p24 Agon HIV 1+2 Ab+HIV1 p24 Ag IA Ql Non-Reactive Normal Nonreactive [facility] Comment on above: Order Comment: HIV A g/Ab screen is performed using the Siemens Atellica HIV Ag/Ab Combo assay which detects the presence of HIV p24 antigen as well as antibodies to HIV-1 (Group M and O) and HIV-2. No laboratory evidence of HIV infection. If acute HIV infection is suspected, consider testing for HIV RNA by PCR (viral load). Performed By: #### 5 6888-1 #### FRANKIE Joiner ([id number]) [facility] ([facility]) [address] [place] [address] HIV 1+2 Ab+HIV1 p24 Ag IA Ql on 09-10-2023 Interpretation and review of laboratory results Normal [facility] HIV Ag/Ab screen is performed using the Siemens Atellica HIV Ag/Ab Combo assay which detects the presence of HIV p24 antigen as well as antibodies to HIV-1 (Group M and O) and HIV-2. No laboratory evidence of HIV infection. If acute HIV infection is suspected, consider testing for HIV RNA by PCR (viral load). [facility] HIV 1/2 Antigen/Antibody Scr een with Reflex to Confirmationon 09-10-2023 HIV 1+2 Ab+HIV1 p24 Ag IA Ql Non-Reactive Nonreactive [facility] Microscopic observation Wet prep Nom (Unsp spec)on 09-10-2023 Clue cells Wet prep Ql (Unsp spec) None Seen Normal None Seen [facility] Comment on above: Performed By: #### 6 80-9 #### FRANKIE Joiner ([id number]) [facility] ([facility]) [address] [place] [address] T. vaginalis Wet prep Ql (Unsp spec) None Seen Normal None Seen [facility] Comment on above: Performed By: #### 6 80-9 #### FRANKIE Joiner ([id number]) [facility] ([facility]) [address] [place] [address] WBC Wet prep Ql (Vag fld) 3-8 Normal [facility] Comment on above: Performed By: #### 6 80-9 #### FRANKIE Joiner ([id number]) [facility] ([facility]) [address] [place] [address] Yeast Wet prep Ql (Vag fld) None Seen Normal None Seen [facility] Comment on above: Performed By: #### 6 80-9 #### FRANKIE Joiner ([id number]) [facility] ([facility]) [address] [place] [address] Microscopic observation Wet prep Nom (Unsp spec)Ordered By: Aisha Dick on 09-10-2023 Clue cells Wet prep Ql (Unsp spec) None Seen None Seen [facility] T. vaginalis Wet prep Ql (Unsp spec) None Seen None Seen [facility] WBC Wet prep Ql (Vag fld) 3-8 [facility] Yeast Wet prep Ql (Vag fld) None Seen None Seen [facility] Syphilis Screen with ReflexO rdered By: German Arizmendi on 09-10-2023 T. pallidum IgG+IgM IA Ql (S) Non-Reactive Nonreactive [facility] Comment on above: No significant level of Treponema pallidum antibody detected. Repeat testing in 2 to 4 weeks may be considered if early infection or incubating syphilis infection is suspected. T. pallidum IgG+IgM IA Ql (S )Ordered By: German Arizmendi on 09-10-2023 Interpretation and review of laboratory results Normal [facility] Treponema pallidum Ab.IgG+Ig Mon 09-10-2023 T. pallidum IgG+IgM IA Ql (S) Non-Reactive Normal Nonreactive [facility] Comment on above: Result Comment: No s ignificant level of Treponema pallidum antibody detected. Repeat testing in 2 to 4 weeks may be considered if early infection or incubating syphilis infection is suspected. Performed By: #### 4 7236-5 #### FRANKIE WHYTECAIN Joiner ([id number]) [facility] ([facility]) [address] [place] [address] US Abdomen RUQon 09-10-2023 Unremarkable ultrasound of the right upper quadrant. I personally reviewed the images/study and I agree with the findings as stated by Adam Barnett MD. This study was interpreted at [place], [place]. MACRO: None Signed by: Samuel Jin 09/10/2023 4:18 PM Dictation workstation: [id number] [facility] Interpreted By: Samuel Jin and Weaver Jakob STUDY: US GALLBLADDER; 09/10/2023 3:17 pm INDICATION: Signs/Symptoms:RUQ pain. COMPARISON: None. ACCESSION NUMBER(S): [id number] ORDERING CLINICIAN: DANIELLA WILSON TECHNIQUE: Multiple images of the right upper quadrant were obtained. This examination was interpreted at [facility]. FINDINGS: LIVER: The liver measures 14.6 cm and is grossly unremarkable and free of any focal lesions. GALLBLADDER: The gallbladder is nondistended, and demonstrates no evidence of gallstones, wall thickening or surrounding fluid. The gallbladder wall thickness is 0.2 cm. Sonographic Mccarthy's sign is negative. BILE DUCTS: No evidence of intra or extrahepatic biliary dilatation is identified; the common bile duct measures 0.4 cm. PANCREAS: The pancreas is poorly visualized due to overlying bowel gas. RIGHT KIDNEY: The right kidney measures 10.3 cm in length. The renal cortical echogenicity and thickness are within normal limit. No hydronephrosis or renal calculi are seen. MMODAL Samuel Jin MD - 09/10/2023 Interpreted By: Samuel Jin and Weaver Jakob STUDY: US GALLBLADDER; 09/10/2023 3:17 pm INDICATION: Signs/Symptoms:RUQ pain. COMPARISON: None. ACCESSION NUMBER(S): [id number] ORDERING CLINICIAN: DANIELLA WILSON TECHNIQUE: Multiple images of the right upper quadrant were obtained. This examination was interpreted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 [facility] [address] [place] [address] Yeast LM Ql (Urine sed) NONE SEEN Normal [facility] Comment on above: Performed By: #### H BSAG #### [facility] [address] [place] [id number] Lab Specimen Source Genital vaginal Normal [facility] Comment on above: Performed By: #### H BSAG #### [facility] [address] [place] [address] GC + CHLAMYDIA BY AMPLIFIED DETECTIONon 03-03-2023 CHLAMYDIA TRACH.,AMPLIFIED Negative Normal Negative [facility] Comment on above: Result Comment: The APTIMA Combo 2 assay is FDA-approved for Chlamydia trachomatis and Neisseria gonorrhoeae testing on female endocervical and vaginal swabs, ThinPrep liquid pap samples, male urine samples and urethral swabs. Performance characteristics for Chlamydia trachomatis and Neisseria gonorrhoeae testing on specific tbn-CHL-hjmpwbbq sample types (female urine samples) have been validated by [facility]. This laboratory is certified by CLIA to perform high complexity testing. Samples from all other sites are not validated for this method. Performed By: #### C BCDF #### [facility] [address] [place] [id number] N.GONORRHEA,AMPLIFIED Negative Normal Negative [facility] Comment on above: Result Comment: The APTIMA Combo 2 assay is FDA-approved for Chlamydia trachomatis and Neisseria gonorrhoeae testing on female endocervical and vaginal swabs, ThinPrep liquid pap samples, male urine samples and urethral swabs. Performance characteristics for Chlamydia trachomatis and Neisseria gonorrhoeae testing on specific kgh-KGB-knrwjhlo sample types (female urine samples) have been validated by [facility]. This laboratory is certified by CLIA to perform high complexity testing. Samples from all other sites are not validated for this method. Performed By: #### C BCDF #### [facility] [address] [place] [id number] TRICHOMONAS,NUCLEIC ACID DET ECTIONon 03-03-2023 TRICHOMONAS VAGINALIS Negative Normal Negative [facility] Comment on above: Result Comment: The APTIMA Trichomonas vaginalis assay is FDA-approved for testing on female endocervical swabs, vaginal swabs, and ThinPrep liquid pap samples. Performance characteristics for Trichomonas vaginalis on specific eif-QIQ-qvccivap sample types (female and male urine and male urethral swabs) have been validated by [facility]. This laboratory is certified by CLIA to perform high complexity testing. Samples from all other sites are not validated for this method. Performed By: #### H CVAB #### [facility] [address] [place] [address] CBC AND DIFFERENTIALon 03-02 % AUTOMATED IMMATURE GRAN 0.2 % Normal 0.0 - 0.9 [facility] Comment on above: Result Comment: Ximena ture Granulocyte Count (IG) includes promyelocytes, myelocytes and metamyelocytes but does not include bands. Percent differential counts (%) should be interpreted in the context of the absolute cell counts (cells/L). Performed By: #### H CVAB #### [facility] [address] [place] [address] Basophils (Bld) [#/Vol] 0.07 10*3/uL Normal 0.00 - 0.10 [facility] Comment on above: Performed By: #### H CVAB #### [facility] [address] [place] [address] Basophils/100 WBC (Bld) 0.7 % Normal 0.0 - 2.0 [facility] Comment on above: Performed By: #### H CVAB #### [facility] [address] [place] [address] Eosinophils (Bld) [#/Vol] 0.17 10*3/uL Normal 0.00 - 0.70 [facility] Comment on above: Performed By: #### H CVAB #### [facility] [address] [place] [address] Eosinophils/100 WBC (Bld) 1.6 % Normal 0.0 - 6.0 [facility] Comment on above: Performed By: #### H CVAB #### [facility] [address] [place] [address] Erythrocyte distribution width (RBC) [Ratio] 12.7 % Normal 11.5 - 14.5 [facility] Comment on above: Performed By: #### H CVAB #### [facility] [address] [place] [address] Hematocrit (Bld) [Volume fraction] 40.7 % Normal 36.0 - 46.0 [facility] Comment on above: Performed By: #### H CVAB #### [facility] [address] [place] [address] Hemoglobin (Bld) [Mass/Vol] 13.5 g/dL Normal 12.0 - 16.0 [facility] Comment on above: Performed By: #### H CVAB #### [facility] [address] [place] [address] Lymphocytes (Bld) [#/Vol] 2.97 10*3/uL Normal 1.20 - 4.80 [facility] Comment on above: Performed By: #### H CVAB #### [facility] [address] [place] [address] Lymphocytes/100 WBC (Bld) 27.9 % Normal 13.0 - 44.0 [facility] Comment on above: Performed By: #### H CVAB #### [facility] [address] [place] [address] MCHC (RBC) [Mass/Vol] 33.2 g/dL Normal 32.0 - 36.0 [facility] Comment on above: Performed By: #### H CVAB #### [facility] [address] [place] [address] MCV (RBC) [Entitic vol] 87 fL Normal 80 - 100 [facility] Comment on above: Performed By: #### H CVAB #### [facility] [address] [place] [address] Monocytes (Bld) [#/Vol] 0.65 10*3/uL Normal 0.10 - 1.00 [facility] Comment on above: Performed By: #### H CVAB #### [facility] [address] [place] [address] Monocytes/100 WBC (Bld) 6.1 % Normal 2.0 - 10.0 [facility] Comment on above: Performed By: #### H CVAB #### [facility] [address] [place] [address] Neutrophils (Bld) [#/Vol] 6.78 10*3/uL Normal 1.20 - 7.70 [facility] Comment on above: Performed By: #### H CVAB #### [facility] [address] [place] [address] Neutrophils/100 WBC (Bld) 63.5 % Normal 40.0 - 80.0 [facility] Comment on above: Performed By: #### H CVAB #### [facility] [address] [place] [address] NUCLEATED RBC 0.0 /100 WBC Normal 0.0-0.0 [facility] Comment on above: Performed By: #### H CVAB #### [facility] [address] [place] [address] Platelets (Bld) [#/Vol] 362 10*3/uL Normal 150 - 450 [facility] Comment on above: Performed By: #### H CVAB #### [facility] [address] [place] [address] RBC 4.70 x10E12/L Normal 4.00 - 5.20 [facility] Comment on above: Performed By: #### H CVAB #### [facility] [address] [place] [address] WBC (Bld) [#/Vol] 10.7 10*3/uL Normal 4.4 - 11.3 [facility] Comment on above: Performed By: #### H CVAB #### [facility] [address] [place] [address] COMPREHENSIVE PANELon 2022 Albumin [Mass/Vol] 4.6 g/dL Normal 3.4 - 5.0 [facility] Comment on above: Performed By: #### H BSAG #### [facility] [address] [place] [address] ALP [Catalytic activity/Vol] 64 U/L Normal 33 - 110 [facility] Comment on above: Performed By: #### H BSAG #### [facility] [address] [place] [address] ALT [Catalytic activity/Vol] 22 U/L Normal 7 - 45 [facility] Comment on above: Result Comment: Kymberly ents treated with Sulfasalazine may generate falsely decreased results for ALT. Performed By: #### H BSAG #### [facility] [address] [place] [address] Anion gap [Moles/Vol] 13 mmol/L Normal 10 - 20 [facility] Comment on above: Performed By: #### H BSAG #### [facility] [address] [place] [address] AST [Catalytic activity/Vol] 21 U/L Normal 9 - 39 [facility] Comment on above: Performed By: #### H BSAG #### [facility] [address] [place] [address] Bilirubin [Mass/Vol] 0.5 mg/dL Normal 0.0 - 1.2 [facility] Comment on above: Performed By: #### H BSAG #### [facility] [address] [place] [address] Calcium [Mass/Vol] 9.6 mg/dL Normal 8.6 - 10.6 [facility] Comment on above: Performed By: #### H BSAG #### [facility] [address] [place] [address] Chloride [Moles/Vol] 105 mmol/L Normal 98 - 107 [facility] Comment on above: Performed By: #### H BSAG #### [facility] [address] [place] [address] Creatinine [Mass/Vol] 0.67 mg/dL Normal 0.50 - 1.05 [facility] Comment on above: Performed By: #### H BSAG #### [facility] [address] [place] [address] eGFR FEMALE >90 Normal >90 [facility] Comment on above: Result Comment: CALC ULATIONS OF ESTIMATED GFR ARE PERFORMED USING THE 2020 CKD-EPI STUDY REFIT EQUATION WITHOUT THE RACE VARIABLE FOR THE IDMS-TRACEABLE CREATININE METHODS. https://jasn.asnjournals.org/content/early/ASN.80749 36303 Performed By: #### H BSAG #### [facility] [address] [place] [address] Glucose [Mass/Vol] 84 mg/dL Normal 74 - 99 [facility] Comment on above: Performed By: #### H BSAG #### [facility] [address] [place] [address] HCO3 (Bld) [Moles/Vol] 27 mmol/L Normal 21 - 32 [facility] Comment on above: Performed By: #### H BSAG #### [facility] [address] [place] [address] Potassium [Moles/Vol] 4.7 mmol/L Normal 3.5 - 5.3 [facility] Comment on above: Performed By: #### H BSAG #### [facility] [address] [place] [address] Protein [Mass/Vol] 7.5 g/dL Normal 6.4 - 8.2 [facility] Comment on above: Performed By: #### H BSAG #### [facility] [address] [place] [address] Sodium [Moles/Vol] 140 mmol/L Normal 136 - 145 [facility] Comment on above: Performed By: #### H BSAG #### [facility] [address] [place] [address] Urea nitrogen [Mass/Vol] 6 mg/dL Normal 6 - 23 [facility] Comment on above: Performed By: #### H BSAG #### [facility] [address] [place] [address] LIPASEon 03-02-2023 Lipase [Catalytic activity/Vol] 8 U/L Low 9 - 82 [facility] Comment on above: Result Comment: Agnes puncture immediately after or during the administration of Metamizole may lead to falsely low results. Testing should be performed immediately prior to Metamizole dosing. C-nhokxz-d-benzoquinone imine (metabolite of Acetaminophen) will generate erroneously low results in samples for patients that have taken toxic doses of acetaminophen. Performed By: #### H BSAG #### [facility] [address] [place] [id number] LIPASE Canceled Normal [facility] Comment on above: Order Comment: TEST LIPASE WAS CANCELLED, 03/02/2023 18:27 DUPLICATE ORDER. SEE ORDER [id number]. Result Comment: Agnes puncture immediately after or during the administration of Metamizole may lead to falsely low results. Testing should be performed immediately prior to Metamizole dosing. Performed By: #### L IPAS #### [facility] [address] [place] [address] Provider Note - ED Care Liang sitionon 03-02-2023 Provider Note - ED Care Transition ED Care Transition: Chart Review: ED NOTES ED NOTES: Handoff received: 1900 03/02/23 handoff care received from Radha Nettles PA-C at this time. Please refer to their note for initial plan of care of this patient. Patient signed out to me pending workup US final results and reevaluation. I agree with my prior providers assessment and plan of care. Workup results were remarkable for Hemorrhagic cyst and ear infection. See results review. I did not need to order any additional laboratory/radiologic studies or medications for the patient during my course of care. 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 Prior medications reviewed and Patient prescribed ibuprofen and Augmentin. Return precautions discussed and patient acknowledged understanding. All questions and concerns answered prior to discharge. RESULTS/VITAL SIGNS RESULTS: Recent Lab Results: I have reviewed these laboratory results: Complete Blood Count + Differential 02-Mar-2023 18:17:00 ResultValue White Blood Cell Count 10.7 Nucleated Erythrocyte Count 0.0 Red Blood Cell Count 4.70 HGB 13.5 HCT 40.7 MCV 87 MCHC 33.2 PLT 362 RDW-CV 12.7 Neutrophil % 63.5 Immature Granulocytes % 0.2 Lymphocyte % 27.9 Monocyte % 6.1 Eosinophil % 1.6 Basophil % 0.7 Neutrophil Count 6.78 Lymphocyte Count 2.97 Monocyte Count 0.65 Eosinophil Count 0.17 Basophil Count 0.07 Comprehensive Metabolic Panel 02-Mar-2023 18:17:00 ResultValue Glucose, Serum 84 NA 140 K 4.7 CL 105 Bicarbonate, Serum 27 Anion Gap, Serum 13 BUN 6 CREAT 0.67 GFR Female >90 Calcium, Serum 9.6 ALB 4.6 ALKP 64 T Pro 7.5 T Bili 0.5 Alanine Aminotransferase, Serum 22 Aspartate Transaminase, Serum 21 Lipase, Serum 02-Mar-2023 18:17:00 ResultValue Lipase, Serum 8 L Wet Prep. w/Reflex to Trich. by Amp Det. 02-Mar-2023 14:59:00 ResultValue Trichomonas NONE SEEN Clue Cell Identification NONE SEEN Yeast Cells NONE SEEN WBC, Wet Prep 3-8 Comments_ SEE COMMENT TRICHOMONAS WAS NOT SEEN BY WET PREP REFLEXED TO TRICHOMONAS VAGINALIS BY AMPLIFIED DETECTION. Fluid Source Genital vaginal Urinalysis with Culture if Indicated 02-Mar-2023 12:22:00 ResultValue Color, Urine YELLOW Reference Range: STRAW,YELLOW Appearance, Urine CLEAR Specific [place], Urine 1.006 pH, Urine 8.0 Protein, Urine NEGATIVE Glucose, Urine NEGATIVE Blood, Urine NEGATIVE Ketones, Urine NEGATIVE Bilirubin, Urine NEGATIVE Urobilinogen, Urine <2.0 Nitrite, Urine NEGATIVE Leukocyte Esterase, Urine TRACE A Urinalysis, Microscopic 02-Mar-2023 12:22:00 ResultValue White Cells <1 Red Blood Cells 1 Epithelial Cells, Squamous 2 Bacteria, Urine 1+ A Radiology Results: Impression: Cystic structure in the left ovary suggestive of a hemorrhagic cyst. Otherwise, unremarkable pelvic ultrasound. Ultrasound Pelvis Transabdominal With Transvaginal [Mar 02 2023 5:43PM] Impression: [Unremarkable pelvic ultrasound.] UNSIGNED REPOR Ultrasound Pelvis Transabdominal With Transvaginal [Mar 02 2023 5:06PM] CLINICAL IMPRESSION Diagnosis/Annotation: ED Dx Name:Hemorrhagic cyst of ovary Code:N83.209 Name:Otitis media Code:H66.90 Disposition: discharged Type: home ATTESTATION CRITICAL CARE TIME Is this a critically ill patient: no Electronic Signatures: Ronnell Nunn (BARREL COATER-SUGAR SAMPLER) (Signed 02-Mar-2023 20:17) Authored: ED Notes, Results/Vital Signs, Clinical Impression, Attestation, Chart Review, Scores Last Updated: 02-Mar-2023 20:17 by Ronnell Nunn (BARREL COATER-HAROON) Normal [facility] Provider Note - ED v3on 02-20 Provider Note - ED v3 Provider Note: Results/Vital Signs: Pediatric Clinical Scoring (REJI) is no recent REJI charted on this account Chart Review: ED NOTES ED NOTES: Limitations to History: None HPI: This is a 28-year-old female with no pertinent medical history who presents today with multiple complaints. Patient is primarily complaining of abdominal pain and dysuria. Patient states her symptoms have persisted for 1 month. Patient states that she was here 2 weeks ago for the same complaint. At that time, she was diagnosed with BV and was discharged home with antibiotics. Patient states that she since developed a yeast infection. Patient denies any vaginal symptoms such as discharge, bleeding, or itching. Patient denies any changes in bowel habits. Patient endorses nausea but denies any emesis. Patient denies any urgency, frequency, or hematuria. Patient denies any flank pain. Patient is also endorsing left ear pain. Patient states she woke up with this ear pain. Patient denies any fevers, chills, cough, nasal congestion. Additional History Obtained from: None 12 point review of systems was performed and is negative unless otherwise specified Physical Exam: VS: As documented in the triage note and EMR flowsheet from this visit were reviewed. CONSTITUTIONAL: Well appearing, well nourished, awake, alert, oriented to person, place, time/situation and in no apparent distress. EYES: Clear bilaterally, pupils equal, round and reactive to light. ENT: There is no focal tenderness to palpation of the tragus, auricle, and mastoid process. The tympanic membrane is visualized to be nonerythematous without bulging on the right. The tympanic membrane is mildly erythematous without bulging on the left. CARDIOVASCULAR: Normal rate, regular rhythm. Heart sounds S1, S2. No murmurs, rubs or gallops. RESPIRATORY: Breath sounds clear and equal bilaterally. No wheezes or rhonchi. GASTROINTESTINAL: Abdomen soft, non-distended, no rebound, no guarding. No focal tenderness to palpation in all 4 quadrants. No suprapubic or CVA tenderness. Negative McBurney's point, Rovsing, psoas, and Mccarthy sign. : A pelvic exam was performed on patient. A female splunk developer in the room was Roma Sarabia. There is normal external vaginal anatomy with warm mucous membranes of the inner vaginal lr. The cervical os is visualized to be closed. There is minimal discharge draining from the cervical os. No pooling of blood or discharge in the vaginal vault. On bimanual exam, there is diffuse nonspecific tenderness. No chandelier sign. MUSCULOSKELETAL: Spine appears normal, range of motion is not limited, no muscle or joint tenderness. NEUROLOGICAL: Alert and oriented, no focal deficits, no motor or sensory deficits. SKIN: Skin normal color for race, warm, dry and intact. No evidence of trauma. PSYCHIATRIC: Alert and oriented to person, place, time/situation. normal mood and affect. No apparent risk to self or others. Medical Decision Making: This is a 28-year-old female with no pertinent medical history who presents today with abdominal pain and dysuria. Patient remained stable throughout course of care. Abdominal exam is benign and lowers concern for cholecystitis, appendicitis, or pancreatitis. I do have low concern for PID on pelvic exam as there is no chandelier sign or significant discharge. However, patient is diffusely tender to patient was sent for a transvaginal ultrasound. Patient was administered doxy Zofran and Bentyl for symptomatic management. CBC with differential, CMP, gonorrhea, chlamydia, lipase, urinalysis with reflex to culture, wet prep, and dmnrf-if-ogef urine test ordered. CBC was unremarkable. Wet prep was unremarkable. Urinalysis was unremarkable. Ultrasound wet read shows a hemorrhagic cyst and was otherwise unremarkable. Patient was handed off with final read of the imaging and the remainder of lab work still pending. Patient remained stable throughout the remainder course of this provider's care. External Records Reviewed: I reviewed recent and relevant outside records including: Previous provider notes Social Determinants Affecting Care: None VAMSI Lawson, PA-C [facility] HISTORY OF PRESENTING ILLNESS ANDREW is a 28 year old Female and was seen by me at 02-Mar-2023 12:08 for a chief complaint of abdominal pain . Other complaints include: pt reports bilateral lower abdominal pain x1 month and left ear pain that started last evening. burning with urination (1). Triage Information: Most recent Vi (more content not included)... Normal [facility] Triage - EDon 03-02-2023 Triage - ED Quick Triage: Are You maybe Have You Given In The Last 6 Weeksno Are You Currently Breastfeedingno Chart Review: ARRIVAL INFORMATION Mode of Arrival: private vehicle CHIEF COMPLAINT ANDREW MENA is a Female patient with a chief complaint of abdominal pain. Other Complaints: pt reports bilateral lower abdominal pain x1 month and left ear pain that started last evening. burning with urination Triage Date/Time: 02-Mar-2023 11:09 EFRAÍN: 3V Vital Signs: Temperature: 98.3F ( 36.8C) Blood Pressure: 116/78 Mean: Heart Rate: 80 Respiratory Rate: 20 Pulse Oximetry: 98% Height: 5 feet 4.00 inches. 162.5 CM Weight: 238.0 pounds. Calculated 108.0 kg. Calculated BMI (kg/m2): 40.899 Calculated BSA (m2) 2.21 [facility] Coma Scale: Best Eye Response: (E4) spontaneous Best Motor Response: (M6) obeys commands Best Verbal Response: (V5) oriented Dustin Score: 15 Last menstrual period: 13-Feb-2023 Patient has homicidal thoughts: no Risk Screens Suicide Risk Screen In the Past Month: Have you wished you were or wished you could go to sleep and not wake up no In the Past Month: Have you had any actual thoughts of killing yourself no In Your Lifetime: Have you ever done anything, started to do anything, or prepared to do anything to end your life no Dorsey Fall Scale Screening Has the patient fallen before (or is the patient in the ED as a result of a fall) has not had a fall Does the patient have an impaired gait does not have impaired gait Is the patient cognitively impaired not cognitively impaired Interventions: Dorsey Fall Interventions: LOW INTERVENTIONS: *patient oriented to surroundings and call system, * patient/family falls education completed and documented, *patients fall status communicated during bedside handoff, *whiteboard updated, *mode of toileting discussed with patient, *bed in low position with brakes locked, *call light in reach, * non-skid footwear TRAVEL HISTORY Travel History Coronavirus Screening: no exposure or symptoms Travel Exposure History: NO travel to International locations in the past 30 days PAIN Pain Scale Used: TRUPTI Past Medical History: Past Medical History Reviewedyes Electronic Signatures: Viry Cantrell (RN) (Signed 02-Mar-2023 11:13) Entered: Risk Screens, Pain, Travel History, Chart Review, Scores, Past Medical History Authored: Quick Triage, Risk Screens, Pain, Travel History, Chart Review, Scores, Past Medical History Last Updated: 02-Mar-2023 11:13 by Viry Cantrell (STEFANIE) Normal [facility] UA MICROSCOPICon 03-02-2023 BACTERIA 1+ /HPF Abnormal [facility] Comment on above: Performed By: #### H CVAB #### [facility] [address] [place] [address] RBC 1 /HPF Normal 0-5 [facility] Comment on above: Performed By: #### H CVAB #### [facility] [address] [place] [address] SQUAMOUS EPITH. CELLS 2 /HPF Normal [facility] Comment on above: Performed By: #### H CVAB #### [facility] [address] [place] [address] WBC (U) [#/Vol] /uL Normal 0-5 [facility] Comment on above: Performed By: #### H CVAB #### [facility] [address] [place] [address] URINALYSIS WITH CULTURE IF I NDICATEDon 03-02-2023 Appearance (U) CLEAR Normal CLEAR [facility] Comment on above: Performed By: #### [facility] #### [facility] [address] [place] [address] Bilirubin Ql (U) Negative Normal NEGATIVE [facility] Comment on above: Performed By: #### G CCHA #### [facility] [address] [place] [address] Color (U) YELLOW Normal STRAW,YELLOW [facility] Comment on above: Performed By: #### G CCHA #### [facility] [address] [place] [address] Glucose Ql (U) Negative Normal NEGATIVE [facility] Comment on above: Performed By: #### [facility] #### [facility] [address] [place] [address] Hemoglobin Ql (U) Negative Normal NEGATIVE [facility] Comment on above: Performed By: #### [facility] #### [facility] [address] [place] [address] Ketones Ql (U) Negative Normal NEGATIVE [facility] Comment on above: Performed By: #### [facility] #### [facility] [address] [place] [address] Leukocyte esterase Test strip Ql (U) TRACE Abnormal NEGATIVE [facility] Comment on above: Performed By: #### [facility] #### [facility] [address] [place] [address] Nitrite Ql (U) Negative Normal NEGATIVE [facility] Comment on above: Performed By: #### G CCHA #### [facility] [address] [place] [address] pH (U) 8.0 [pH] Normal 5.0 - 8.0 [facility] Comment on above: Performed By: #### G [facility] #### [facility] [address] [place] [address] Protein Ql (U) Negative Normal NEGATIVE [facility] Comment on above: Performed By: #### G CCHA #### [facility] [address] [place] [address] Specific gravity (U) [Rel density] 1.006 Normal 1.005 - 1.035 [facility] Comment on above: Performed By: #### G [facility] #### [facility] [address] [place] [address] Urobilinogen (U) [Mass/Vol] mg/dL Normal 0.0 - 1.9 [facility] Comment on above: Performed By: #### G [facility] #### [facility] [address] [place] [address] URINE CULTURE,BACTERIALon URINE CULTURE,BACTERIAL PATIENT: ANDREW MENA LOCATION: [place] [address] BILL#: [id number] : [birth year] AGE: SEX: F ORDERED BY: FARIDA HAYDEN SOURCE: URINE COLLECTED: 03/02/23 12:22 ANTIBIOTICS AT EDDI.: RECEIVED : 03/02/23 13:16 SITE: R E S U L T S URINE CULTURE,BACTERIAL FINAL 03/03/23 08:55 NO SIGNIFICANT GROWTH. Normal [facility] Comment on above: Performed By: #### H BSAG #### [facility] [address] [place] [address] US PELVIS TRANSABDOMINAL WIT H TRANSVAGINALon 03-02-2023 US PELVIS TRANSABDOMINAL WITH TRANSVAGINAL Patient Name: ANDREW MENA STUDY: US PELVIS TRANSABDOMINAL WITH TRANSVAGINAL; 03/02/2023 4:49 pm INDICATION: Pelvic pain . COMPARISON: None. ACCESSION NUMBER(S): [id number] ORDERING CLINICIAN: VERÓNICA NETTLES TECHNIQUE: Multiple multiplanar static pelaez scale, color and spectral waveform sonographic images of the pelvis were obtained. Transabdominal and endovaginal ultrasound was performed. This examination was interpreted at [facility]. FINDINGS: UTERUS: The uterus measures 9.0 x 5.8 x 4.4 cm. The uterine myometrium appears normal. ENDOMETRIUM: The endometrium measures a thickness of 12 mm, which is normal. RIGHT ADNEXA: The right ovary measures 2.9 x 2.2 x 2.0 cm and demonstrates normal flow. No gross right adnexal masses are seen, no hydrosalpinx. LEFT ADNEXA: The left ovary measures 3.1 x 2.5 x 2.3 cm and demonstrates normal flow. No gross left adnexal masses are seen, no hydrosalpinx. A cystic structure in the left ovary measuring 1.6 x 1.3 x 1.0 cm contains internal echoes. CUL DE SAC: No gross free fluid is seen in the pelvic cul-de-sac. IMPRESSION: Cystic structure in the left ovary suggestive of a hemorrhagic cyst. Otherwise, unremarkable pelvic ultrasound. I personally reviewed the images/study and I agree with the resident findings as stated. This study was interpreted at [place], [place]. MACRO: None Electronically signed by: AVILA VAZQUEZ MD Normal [facility] WET PREP W/ TRICHOMONAS REFL EX IF NEGon 03-02-2023 CLUE CELLS NONE SEEN Normal [facility] Comment on above: Performed By: #### H CVAB #### [facility] [address] [place] [address] COMMENT SEE COMMENT Normal [facility] Comment on above: Result Comment: TRIC HOMONAS WAS NOT SEEN BY WET PREP REFLEXED TO TRICHOMONAS VAGINALIS BY AMPLIFIED DETECTION. Performed By: #### H CVAB #### [facility] [address] [place] [address] TRICHOMONAS NONE SEEN Normal Negative [facility] Comment on above: Performed By: #### H CVAB #### [facility] [address] [place] [address] WBC 3-8 Normal [facility] Comment on above: Performed By: #### H CVAB #### [facility] [address] [place] [address] Yeast LM Ql (Urine sed) NONE SEEN Normal [facility] Comment on above: Performed By: #### H CVAB #### [facility] [address] [place] [address] Lab Specimen Source Genital vaginal Normal [facility] Comment on above: Performed By: #### H CVAB #### [facility] [address] [place] [address] Performed By: #### C BCDF #### [facility] [address] [place] [address] Clinical Event Note-ED Post Discharge Result Follow Up: Atteon 02-17-2023 Clinical Event Note-ED Post Discharge Result Follow Up: Atte Clinical Event: Clinical Event Note: TopicED Post Discharge Result Follow Up: Attempt # 1, Complete : Genital: BV Details Patient tested positive for BV during recent ED visit. ED doctor educated the patient on the positive result and proper discharge treatment was given to the patient. No further follow up from EDPD team is needed. Patient personally requested therapy for STI prophylaxis during ED visit and was discharged with doxycycline 100 mg twice a day x 7 days. Tried contacting to recommend discontinuation per patient preference due to negative STI cultures but both numbers are out of service. If there are any other questions for the ED Post-Discharge Culture Follow Up Team, please contact [phone]. . Rola Nesbtit, PharmD PGY1 Director Of Safety [facility] Electronic Signatures: Rola Nesbitt ([facility]) (Signed 17-Feb-2023 14:47) Authored: Clinical Event Note Mary Dudley ([facility]) (Signed 18-Feb-2023 11:19) Co-Signer: Clinical Event Note Last Updated: 18-Feb-2023 11:19 by Mary Dudley ([facility]) Normal [facility] GC + CHLAMYDIA BY AMPLIFIED DETECTIONon 02-17-2023 CHLAMYDIA TRACH.,AMPLIFIED Negative Normal Negative [facility] Comment on above: Result Comment: The APTIMA Combo 2 assay is FDA-approved for Chlamydia trachomatis and Neisseria gonorrhoeae testing on female endocervical and vaginal swabs, ThinPrep liquid pap samples, male urine samples and urethral swabs. Performance characteristics for Chlamydia trachomatis and Neisseria gonorrhoeae testing on specific tbj-WVK-mriimnsf sample types (female urine samples) have been validated by [facility]. This laboratory is certified by CLIA to perform high complexity testing. Samples from all other sites are not validated for this method. Performed By: #### G [facility] #### [facility] [address] [place] [address] N.GONORRHEA,AMPLIFIED Negative Normal Negative [facility] Comment on above: Result Comment: The APTIMA Combo 2 assay is FDA-approved for Chlamydia trachomatis and Neisseria gonorrhoeae testing on female endocervical and vaginal swabs, ThinPrep liquid pap samples, male urine samples and urethral swabs. Performance characteristics for Chlamydia trachomatis and Neisseria gonorrhoeae testing on specific oit-IIS-srqizoqz sample types (female urine samples) have been validated by [facility]. This laboratory is certified by CLIA to perform high complexity testing. Samples from all other sites are not validated for this method. Performed By: #### G [facility] #### [facility] [address] [place] [address] HCG,BETA-QUANTITATIVEon 01-21 HCG,BETA-QUANTITATIVE <3 Normal [facility] Comment on above: Result Comment: . Total HCG measurement is performed using the Siemens Atellica immunoassay which detects intact HCG and free beta HCG subunit. . This test is not indicated for use as a tumor marker. HCG testing is performed using a different test methodology at [facility] than other [facility]. Direct result comparison should only be made within the same method. . REF VALUES NON FEMALE <5 MALES <5 Performed By: #### G [facility] #### [facility] [address] [place] [address] HIV 1/2 ANTIGEN/ANTIBODY SCR EEN WITH REFLEX TO CONFIRMATIONon 02-17-2023 HIV 1/2 AG/AB SCREEN Non-Reactive Normal NONREACTIVE [facility] Comment on above: Result Comment: HIV Ag/Ab screen is performed using the Siemens Atellica HIV Ag/Ab Combo assay which detects the presence of HIV p24 antigen as well as antibodies to HIV-1 (Group M and O) and HIV-2. . No laboratory evidence of HIV infection. If acute HIV infection is suspected, consider testing for HIV RNA by PCR (viral load). Performed By: #### H IV #### [facility] [address] [place] [address] TRICHOMONAS,NUCLEIC ACID DET ECTIONon 02-17-2023 TRICHOMONAS VAGINALIS Negative Normal Negative [facility] Comment on above: Result Comment: The APTIMA Trichomonas vaginalis assay is FDA-approved for testing on female endocervical swabs, vaginal swabs, and ThinPrep liquid pap samples. Performance characteristics for Trichomonas vaginalis on specific kne-WPG-gjkewdsb sample types (female and male urine and male urethral swabs) have been validated by [facility]. This laboratory is certified by CLIA to perform high complexity testing. Samples from all other sites are not validated for this method. Performed By: #### H BSAG #### [facility] [address] [place] [address] BASIC METABOLIC PANELon 01-21 Anion gap [Moles/Vol] 15 mmol/L Normal 10 - 20 [facility] Comment on above: Performed By: #### H BSAG #### [facility] [address] [place] [address] Calcium [Mass/Vol] 9.7 mg/dL Normal 8.6 - 10.6 [facility] Comment on above: Performed By: #### H BSAG #### [facility] [address] [place] [address] Chloride [Moles/Vol] 102 mmol/L Normal 98 - 107 [facility] Comment on above: Performed By: #### H BSAG #### [facility] [address] [place] [address] Creatinine [Mass/Vol] 0.74 mg/dL Normal 0.50 - 1.05 [facility] Comment on above: Performed By: #### H BSAG #### [facility] [address] [place] [address] eGFR FEMALE >90 Normal >90 [facility] Comment on above: Result Comment: CALC ULATIONS OF ESTIMATED GFR ARE PERFORMED USING THE 2020 CKD-EPI STUDY REFIT EQUATION WITHOUT THE RACE VARIABLE FOR THE IDMS-TRACEABLE CREATININE METHODS. https://jasn.asnjournals.org/content//ASN.73244 62232 Performed By: #### H BSAG #### [facility] [address] [place] [address] Glucose [Mass/Vol] 72 mg/dL Low 74 - 99 [facility] Comment on above: Performed By: #### H BSAG #### [facility] [address] [place] [address] HCO3 (Bld) [Moles/Vol] 25 mmol/L Normal 21 - 32 [facility] Comment on above: Performed By: #### H BSAG #### [facility] [address] [place] [address] Potassium [Moles/Vol] 3.5 mmol/L Normal 3.5 - 5.3 [facility] Comment on above: Performed By: #### H BSAG #### [facility] [address] [place] [address] Sodium [Moles/Vol] 138 mmol/L Normal 136 - 145 [facility] Comment on above: Performed By: #### H BSAG #### [facility] [address] [place] [address] Urea nitrogen [Mass/Vol] 7 mg/dL Normal 6 - 23 [facility] Comment on above: Performed By: #### H BSAG #### [facility] [address] [place] [address] CBC AND DIFFERENTIALon 02-16 % AUTOMATED IMMATURE GRAN 0.2 % Normal 0.0 - 0.9 [facility] Comment on above: Result Comment: Ximena ture Granulocyte Count (IG) includes promyelocytes, myelocytes and metamyelocytes but does not include bands. Percent differential counts (%) should be interpreted in the context of the absolute cell counts (cells/L). Performed By: #### C BCDF #### [facility] [address] [place] [address] Basophils (Bld) [#/Vol] 0.07 10*3/uL Normal 0.00 - 0.10 [facility] Comment on above: Performed By: #### C BCDF #### [facility] [address] [place] [address] Basophils/100 WBC (Bld) 0.5 % Normal 0.0 - 2.0 [facility] Comment on above: Performed By: #### C BCDF #### [facility] [address] [place] [address] Eosinophils (Bld) [#/Vol] 0.18 10*3/uL Normal 0.00 - 0.70 [facility] Comment on above: Performed By: #### C BCDF #### [facility] [address] [place] [address] Eosinophils/100 WBC (Bld) 1.4 % Normal 0.0 - 6.0 [facility] Comment on above: Performed By: #### C BCDF #### [facility] [address] [place] [address] Erythrocyte distribution width (RBC) [Ratio] 12.7 % Normal 11.5 - 14.5 [facility] Comment on above: Performed By: #### C BCDF #### [facility] [address] [place] [address] Hematocrit (Bld) [Volume fraction] 40.6 % Normal 36.0 - 46.0 [facility] Comment on above: Performed By: #### C BCDF #### [facility] [address] [place] [address] Hemoglobin (Bld) [Mass/Vol] 13.9 g/dL Normal 12.0 - 16.0 [facility] Comment on above: Performed By: #### C BCDF #### [facility] [address] [place] [address] Lymphocytes (Bld) [#/Vol] 3.77 10*3/uL Normal 1.20 - 4.80 [facility] Comment on above: Performed By: #### C BCDF #### [facility] [address] [place] [address] Lymphocytes/100 WBC (Bld) 29.2 % Normal 13.0 - 44.0 [facility] Comment on above: Performed By: #### C BCDF #### [facility] [address] [place] [address] MCHC (RBC) [Mass/Vol] 34.2 g/dL Normal 32.0 - 36.0 [facility] Comment on above: Performed By: #### C BCDF #### [facility] [address] [place] [address] MCV (RBC) [Entitic vol] 87 fL Normal 80 - 100 [facility] Comment on above: Performed By: #### C BCDF #### [facility] [address] [place] [address] Monocytes (Bld) [#/Vol] 0.86 10*3/uL Normal 0.10 - 1.00 [facility] Comment on above: Performed By: #### C BCDF #### [facility] [address] [place] [address] Monocytes/100 WBC (Bld) 6.7 % Normal 2.0 - 10.0 [facility] Comment on above: Performed By: #### C BCDF #### [facility] [address] [place] [address] Neutrophils (Bld) [#/Vol] 8.02 10*3/uL High 1.20 - 7.70 [facility] Comment on above: Performed By: #### C BCDF #### [facility] [address] [place] [address] Neutrophils/100 WBC (Bld) 62.0 % Normal 40.0 - 80.0 [facility] Comment on above: Performed By: #### C BCDF #### [facility] [address] [place] [address] NUCLEATED RBC 0.0 /100 WBC Normal 0.0-0.0 [facility] Comment on above: Performed By: #### C BCDF #### [facility] [address] [place] [address] Platelets (Bld) [#/Vol] 391 10*3/uL Normal 150 - 450 [facility] Comment on above: Performed By: #### C BCDF #### [facility] [address] [place], [place] RBC 4.66 x10E12/L Normal 4.00 - 5.20 [facility] Comment on above: Performed By: #### C BCDF #### [facility] [address] [place], [place] WBC (Bld) [#/Vol] 12.9 10*3/uL High 4.4 - 11.3 [facility] Comment on above: Performed By: #### C BCDF #### [facility] [address] [place], [place] EMR ADDONon 02-16-2023 ADDON CONFIRMATION REQUEST REC'D Normal [facility] Comment on above: Performed By: #### G CCHA #### [facility] [address] [place], [place] GC + CHLAMYDIA BY AMPLIFIED DETECTIONon 02-16-2023 Lab Specimen Source Genital cervix Normal [facility] Comment on above: Performed By: #### G CCHA #### [facility] [address] [place], [place] Performed By: #### H BSAG #### [facility] [address] [place], [place] HEPATITIS C ABon 02-16-2023 HEPATITIS C AB Non-Reactive Normal NONREACTIVE [facility] Comment on above: Result Comment: Resu lts from patients taking biotin supplements or receiving high-dose biotin therapy should be interpreted with caution due to possible interference with this test. Providers may contact their local laboratory for further information. Performed By: #### H CVAB #### [facility] [address] [place] [address] Lab Specimen Source Normal [facility] Comment on above: Performed By: #### H CVAB #### [facility] [address] [place], [place] Performed By: #### H IV #### [facility] [address] [place], [place] Performed By: #### G CCHA #### [facility] [address] [place], [place] Provider Note - ED v3on 08-3 Provider Note - ED v3 Provider Note: Results/Vital Signs: Pediatric Clinical Scoring (REJI) is no recent REJI charted on this account Chart Review: ED NOTES ED NOTES: HPI:Patient is a 28-year-old otherwise healthy female presents to the ED for pelvic pain that has been ongoing for the past week but significantly worsened today. Patient notes associated nausea, malodorous vaginal discharge, pelvic pain and dysuria. She is unsure if she is . She does have some concern for STDs. She denies any vomiting, vaginal bleeding, hematuria, frequent urination, fevers or chills. ROS: a ten point review of systems was performed and was negative except as per HPI. PMH / PSH: as per HPI, otherwise reviewed MEDS: as per HPI, otherwise reviewed in EMR ALLERGIES: as per HPI, otherwise reviewed in EMR SocH: as per HPI, otherwise reviewed in EMR FH: as per HPI, otherwise reviewed in EMR Physical Exam: VS: As documented in the triage note and EMR flowsheet from this visit was reviewed General: Well appearing. No acute distress. Eyes: Extraocular movements grossly intact. No scleral icterus. Head: Atraumatic. Normocephalic. Neck: No meningismus. No gross masses. Full movement through range of motion CV: Regular rhythm. No murmurs, rubs, gallops appreciated. Resp: Clear to auscultation bilaterally. No respiratory distress. GI: Nontender. Soft. No masses. No rebound, rigidity or guarding. MSK: Symmetric muscle bulk. No gross step offs or deformities. Skin: Warm, dry. No rashes Neuro: CN II-VII intact. A&O x3. Speech fluent. Alert. Moving all extremities. Ambulates with normal gait Psych: Appropriate mood and affect for situation Hospital Course / Medical Decision Making:v Patient is a 28-year-old otherwise healthy female presents the ED for pelvic pain. On examination, patient is nontoxic in appearance. Vitals are stable without fever. Abdominal examination is benign without any tenderness. Pelvic exam was unremarkable for any significant discharge, cervical motion or adnexal tenderness. Low concern for pelvic inflammatory disease or acute surgical process. Basic laboratory studies obtained in addition to STD labs including gonorrhea/chlamydia, HIV, hepatitis and syphilis testing. CBC showed mild elevation in the white count of 12.9, no anemia. BMP showed no renal, electrolyte or hepatic abnormality. Urinalysis without evidence of infection. Wet prep did show clue cells. Patient requested STD prophylaxis and therefore was administered IM gentamicin, doxycycline and metronidazole. She was written a prescription for doxycycline as well as metronidazole for treatment of her BV. Homegoing. Advised to return to the ED for any acutely worsening symptoms. Advised to follow-up with their PCP on an outpatient basis. The patient is hemodynamically stable at this time. Vital signs are stable. Plan was discussed with the patient to which they are amenable and all questions are answered. Patient will be discharged in stable condition. HISTORY OF PRESENTING ILLNESS ANDREW is a 28 year old Female and was seen by me at 16-Feb-2023 20:15 for a chief complaint of pelvic pain . Other complaints include: pain and vaginal discharge(1). Triage Information: Most recent Vital Sign Value Date Temp (F): 98.4 02-16-2023 17:51 Temp (C): 36.9 02-16-2023 17:51 Heart Rate (beats/min): 100 02-16-2023 17:51 Respirations (breaths/min): 16 02-16-2023 17:51 SpO2 (%): 98 02-16-2023 17:51 BP Systolic (mm Hg): 125 02-16-2023 17:51 BP Diastolic (mm Hg): 80 02-16-2023 17:51 PAST MEDICAL HISTORY ALLERGIES/INTOLERANCES : Allergy Allergen: penicillin Type: Drug Reaction: Unknown HEALTH HISTORY: No documented data. OUTPATIENT MEDICATIONS: Home Medications Review Status for Reconciliation: Not Done Med Status: Patient Currently Takes Medications Drug Name: Adoxa 100 mg oral tablet Instructions: 1 tab(s) orally 2 times a day Drug Name: metroNIDAZOLE 500 mg oral tablet Instructions: 1 tab(s) orally every 12 hours SIGNIFICANT EVENTS: No documented data. CRITICAL CARE RESULTS: Recent Lab Results: I have reviewed these laboratory results: Wet Prep. w/Reflex to Trich. by Amp Det. 16-Feb-2023 20:56:00 ResultValue Trichomonas NONE SEEN Clue Cell Identification PRESENT A Yeast Cells NONE SEEN WBC, Wet Prep 3-8 Comments_ (more content not included)... Normal [facility] Triage - EDon 02-16-2023 Triage - ED Quick Triage: Are You maybe Have You Given In The Last 6 Weeksno Are You Currently Breastfeedingno Chart Review: ARRIVAL INFORMATION Mode of Arrival: private vehicle CHIEF COMPLAINT ANDREW MENA is a Female patient with a chief complaint of pelvic pain. Other Complaints: pain and vaginal discharge Triage Date/Time: 16-Feb-2023 17:51 EFRAÍN: 3V Vital Signs: Temperature: 98.4F ( 36.9C) taken temporal Blood Pressure: 125/80 Mean: Heart Rate: 100 Respiratory Rate: 16 Pulse Oximetry: 98% on room air, no respiratory support. Dustin Coma Scale: Best Eye Response: (E4) spontaneous Best Motor Response: (M6) obeys commands Best Verbal Response: (V5) oriented [place] Score: 15 Allergies: yes Patient has homicidal thoughts: no Risk Screens Suicide Risk Screen In the Past Month: Have you wished you were or wished you could go to sleep and not wake up no In the Past Month: Have you had any actual thoughts of killing yourself no In Your Lifetime: Have you ever done anything, started to do anything, or prepared to do anything to end your life no Dorsey Fall Scale Screening Has the patient fallen before (or is the patient in the ED as a result of a fall) has not had a fall Does the patient have an impaired gait does not have impaired gait Is the patient cognitively impaired not cognitively impaired Interventions: Dorsey Fall Interventions: LOW INTERVENTIONS: *patient oriented to surroundings and call system, * patient/family falls education completed and documented, *patients fall status communicated during bedside handoff, *whiteboard updated, *mode of toileting discussed with patient, *bed in low position with brakes locked, *call light in reach, * non-skid footwear TRAVEL HISTORY Travel History Coronavirus Screening: no exposure or symptoms Travel Exposure History: NO travel to International locations in the past 30 days PAIN Pain Scale Used: TRUPTI Past Medical History: Past Medical History Reviewedno Electronic Signatures: Razia Guy) (Signed 16-Feb-2023 17:52) Entered: Risk Screens, Pain, Travel History, Chart Review, Scores, Past Medical History Authored: Quick Triage, Risk Screens, Pain, Travel History, Chart Review, Scores, Past Medical History Last Updated: 16-Feb-2023 17:52 by Razia Guy (STEFANIE) Normal [facility] UA MICROSCOPICon 02-16-2023 BACTERIA 1+ /HPF Abnormal [facility] Comment on above: Performed By: #### [facility] #### [facility] [address] [place] [address] RBC 1 /HPF Normal 0-5 [facility] Comment on above: Performed By: #### G [facility] #### [facility] [address] [place] [address] SQUAMOUS EPITH. CELLS 4 /HPF Normal [facility] Comment on above: Performed By: #### G CCHA #### [facility] [address] [place] [address] WBC 4 /HPF Normal 0-5 [facility] Comment on above: Performed By: #### G CCHA #### [facility] [address] [place] [address] URINALYSIS WITH CULTURE IF I NDICATEDon 02-16-2023 Appearance (U) HAZY Normal CLEAR [facility] Comment on above: Performed By: #### U ARFX #### [facility] [address] [place] [address] Bilirubin Ql (U) Negative Normal NEGATIVE [facility] Comment on above: Performed By: #### U ARFX #### [facility] [address] [place] [address] Color (U) STRAW Normal STRAW,YELLOW [facility] Comment on above: Performed By: #### U ARFX #### [facility] [address] [place] [address] Glucose Ql (U) Negative Normal NEGATIVE [facility] Comment on above: Performed By: #### U ARFX #### [facility] [address] [place] [address] Hemoglobin Ql (U) Negative Normal NEGATIVE [facility] Comment on above: Performed By: #### U ARFX #### [facility] [address] [place] [address] Ketones Ql (U) Negative Normal NEGATIVE [facility] Comment on above: Performed By: #### U ARFX #### [facility] [address] [place] [address] Leukocyte esterase Test strip Ql (U) SMALL (1+) Abnormal NEGATIVE [facility] Comment on above: Performed By: #### U ARFX #### [facility] [address] [place] [address] Nitrite Ql (U) Negative Normal NEGATIVE [facility] Comment on above: Performed By: #### U ARFX #### [facility] [address] [place] [address] pH (U) 6.0 [pH] Normal 5.0 - 8.0 [facility] Comment on above: Performed By: #### U ARFX #### [facility] [address] [place] [address] Protein Ql (U) Negative Normal NEGATIVE [facility] Comment on above: Performed By: #### U ARFX #### [facility] [address] [place] [address] Specific gravity (U) [Rel density] 1.003 Low 1.005 - 1.035 [facility] Comment on above: Performed By: #### U ARFX #### [facility] [address] [place] [address] Urobilinogen (U) [Mass/Vol] mg/dL Normal 0.0 - 1.9 [facility] Comment on above: Performed By: #### U ARFX #### [facility] [address] [place] [address] URINE CULTURE,BACTERIALon URINE CULTURE,BACTERIAL PATIENT: ANDREW MENA LOCATION: [place] [address] BILL#: [id number] : 89 AGE: SEX: F ORDERED BY: AMBULATORY BRENT, PHYSICIAN SOURCE: URINE COLLECTED: 02/16/23 20:33 ANTIBIOTICS AT EDDI.: RECEIVED : 02/16/23 21:06 SITE: R E S U L T S URINE CULTURE,BACTERIAL FINAL 02/17/23 15:04 MULTIPLE ORGANISMS PRESENT, PROBABLE CONTAMINATION PLEASE REPEAT CULTURE. Normal [facility] Comment on above: Performed By: #### G CCHA #### [facility] [address] [place] [id number] WET PREP W/ TRICHOMONAS REFL EX IF NEGon 02-16-2023 CLUE CELLS PRESENT Abnormal [facility] Comment on above: Performed By: #### C BCDF #### [facility] [address] [place] [address] COMMENT SEE COMMENT Normal [facility] Comment on above: Result Comment: TRIC HOMONAS WAS NOT SEEN BY WET PREP REFLEXED TO TRICHOMONAS VAGINALIS BY AMPLIFIED DETECTION. Performed By: #### C BCDF #### [facility] [address] [place] [address] TRICHOMONAS NONE SEEN Normal Negative [facility] Comment on above: Performed By: #### C BCDF #### [facility] [address] [place] [id number] WBC 3-8 Normal [facility] Comment on above: Performed By: #### C BCDF #### [facility] [address] [place] [id number] Yeast LM Ql (Urine sed) NONE SEEN Normal [facility] Comment on above: Performed By: #### C BCDF #### [facility] [address] [place] [address] Lab Specimen Source Genital vaginal Normal [facility] Comment on above: Performed By: #### C BCDF #### [facility] [address] [place] [id number] GC + CHLAMYDIA BY AMPLIFIED DETECTIONon 01-09-2023 CHLAMYDIA TRACH.,AMPLIFIED Negative Normal Negative [facility] Comment on above: Result Comment: The APTIMA Combo 2 assay is FDA-approved for Chlamydia trachomatis and Neisseria gonorrhoeae testing on female endocervical and vaginal swabs, ThinPrep liquid pap samples, male urine samples and urethral swabs. Performance characteristics for Chlamydia trachomatis and Neisseria gonorrhoeae testing on specific feg-ORC-wvhehpss sample types (female urine samples) have been validated by [facility]. This laboratory is certified by CLIA to perform high complexity testing. Samples from all other sites are not validated for this method. Performed By: #### G [facility] #### [facility] [address] [place] [address] N.GONORRHEA,AMPLIFIED Negative Normal Negative [facility] Comment on above: Result Comment: The APTIMA Combo 2 assay is FDA-approved for Chlamydia trachomatis and Neisseria gonorrhoeae testing on female endocervical and vaginal swabs, ThinPrep liquid pap samples, male urine samples and urethral swabs. Performance characteristics for Chlamydia trachomatis and Neisseria gonorrhoeae testing on specific dad-IHF-dpznlnjf sample types (female urine samples) have been validated by [facility]. This laboratory is certified by CLIA to perform high complexity testing. Samples from all other sites are not validated for this method. Performed By: #### G [facility] #### [facility] [address] [place] [address] HEPATITIS B SURFACE AGon HEP.B SURFACE AG Non-Reactive Normal NONREACTIVE [facility] Comment on above: Result Comment: Biot in interference may cause falsely decreased results. Patients taking a Biotin dose of up to 5 mg/day should refrain from taking Biotin for 24 hours before sample collection. Providers may contact their local laboratory for further information. Performed By: #### H BSAG #### [facility] [address] [place] [address] HEPATITIS C ABon 01-09-2023 HEPATITIS C AB Non-Reactive Normal NONREACTIVE [facility] Comment on above: Result Comment: Resu lts from patients taking biotin supplements or receiving high-dose biotin therapy should be interpreted with caution due to possible interference with this test. Providers may contact their local laboratory for further information. Performed By: #### H CVAB #### [facility] [address] [place] [address] HIV 1/2 ANTIGEN/ANTIBODY SCR EEN WITH REFLEX TO CONFIRMATIONon 01-09-2023 HIV 1/2 AG/AB SCREEN Non-Reactive Normal NONREACTIVE [facility] Comment on above: Result Comment: HIV Ag/Ab screen is performed using the Point HIV Ag/Ab Combo assay which detects the presence of HIV p24 antigen as well as antibodies to HIV-1 (Group M and O) and HIV-2. . No laboratory evidence of HIV infection. If acute HIV infection is suspected, consider testing for HIV RNA by PCR (viral load). Performed By: #### G [facility] #### [facility] [address] [place] [address] SYPHILIS SCREENING WITH REFL EXon 01-09-2023 SYPHILIS TOTAL AB Non-Reactive Normal NONREACTIVE [facility] Comment on above: Result Comment: No s erologic evidence of syphilis infection. If recent exposure is suspected, repeat syphilis testing is recommended in 2 to 4 weeks. Performed By: #### U ARFX #### [facility] [address] [place] [id number] TRICHOMONAS,NUCLEIC ACID DET ECTIONon 01-09-2023 TRICHOMONAS VAGINALIS Negative Normal Negative [facility] Comment on above: Result Comment: The APTIMA Trichomonas vaginalis assay is FDA-approved for testing on female endocervical swabs, vaginal swabs, and ThinPrep liquid pap samples. Performance characteristics for Trichomonas vaginalis on specific dzh-WIU-jetowsiu sample types (female and male urine and male urethral swabs) have been validated by [facility]. This laboratory is certified by CLIA to perform high complexity testing. Samples from all other sites are not validated for this method. Performance characteristics for Trichomonas Vaginalis testing on urine samples has been validated by [facility]. Testing on this sample type is not FDA-approved, but such approval is not necessary. This laboratory is certified by CLIA to perform high complexity testing. Performed By: #### G [facility] #### [facility] [address] [place] [address] VAGINITIS GRAM STAIN FOR FIDELINA TERIAL VAGINOSIS + YEASTon 01-09-2023 CLUE CELLS ABSENT Normal [facility] Comment on above: Performed By: #### G [facility] #### [facility] [address] [place] [address] MARK ANTHONY SCORE 1 Normal [facility] Comment on above: Result Comment: Inte rpretation of the Mark Anthony Score 0-3.....Normal vaginal microbiota 4-6.....Intermediate results 7-10....Bacterial vaginosis Performed By: #### G CCHA #### [facility] [address] [place], [place] Yeast LM Ql (Urine sed) ABSENT Normal [facility] Comment on above: Performed By: #### G CCHA #### [facility] [address] [place], [place] GC + CHLAMYDIA BY AMPLIFIED DETECTIONon 01-08-2023 Lab Specimen Source Urine Normal [facility] Comment on above: Performed By: #### G CCHA #### [facility] [address] [place], [place] HEPATITIS B SURFACE AGon Lab Specimen Source Normal [facility] Comment on above: Performed By: #### H BSAG #### [facility] [address] [place], [place] Performed By: #### H CVAB #### [facility] [address] [place], [place] Performed By: #### G CCHA #### [facility] [address] [place], [place] SUPERVISOR STAVE FINISHING - Office Visiton 12-21 SUPERVISOR STAVE FINISHING - Office Visit Diagnoses/Problems Assessed BV (bacterial vaginosis) (616.10,041.9) (N76.0,B96.89) Routine screening for STI (sexually transmitted infection) (V74.5) (Z11.3) Orders Start: metroNIDAZOLE 0.75 % Vaginal Gel; INSERT 1 APPLICATORFUL INTRAVAGINALLY AT BEDTIME NIGHTLY IO Wet Mount; Status:Complete; Done: 08Jan2023 11:38AM GC + Chlamydia By Amplified Detection; Status:In Progress - Specimen/Data Collected,Retrospectiv e Authorization; Done: 08Jan2023 Hepatitis B Surface Antigen; Status:Active - Retrospective Authorization; Requested for:08Jan2023; Hepatitis C Antibody Test; Status:Active - Retrospective Authorization; Requested for:08Jan2023; HIV 1/2 ANTIGEN/ANTIBODY SCREEN WITH REFLEX TO CONFIRMATION; Status:Active - Retrospective Authorization; Requested for:08Jan2023; SYPHILIS SCREENING WITH REFLEX; Status:Active - Retrospective Authorization; Requested for:[id number]; Trichomonas Vaginalis, Amplified; Status:In Progress - Specimen/Data Collected,Retrospectiv e Authorization; Done: [id number] Provider Impressions BV on wet mount. Will send STI testing, gram stain UA, UPT neg Rx for Metrogel Chief Complaint CC: c/o discharge , burning during urination, abdominal pain requests preg. test STI testing History of Present Deagfwg75 year old patient presents with complaint of yellow vaginal discharge with burning. No odor for last 2 weeks. Sexually active, no new partner. Review of Systems Constitutional: no fever, no chills, no recent weight gain, no recent weight loss and no fatigue. Eyes: no eye pain, no vision problems and no dryness of the eyes. ENT: no hearing loss, no nosebleeds and no sinus congestion. Cardiovascular: no chest pain, no palpitations and no orthopnea. Respiratory: no shortness of breath, no cough and no wheezing. Gastrointestinal: abdominal pain, but no constipation, no nausea, no diarrhea and no vomiting. Genitourinary: vaginal itching and vaginal discharge, but no dysuria, no urinary incontinence, no vaginal dryness, no dyspareunia, no pelvic pain, no dysmenorrhea, no sexual problems, no change in urinary frequency, no unexplained vaginal bleeding and no lesion/sore. Musculoskeletal: no back pain, no joint swelling and no leg edema. Integumentary: no rashes, no skin lesions, no nipple discharge, no breast pain and no breast lump. Neurological: no headache, no numbness and no dizziness. Psychiatric: no sleep disturbances, no anxiety and no depression. Endocrine: no hot flashes, no loss of hair and no hirsutism. Hematologic/Lymphatic: no swollen glands, no tendency for easy bleeding and no tendency for easy bruising. All other systems have been reviewed and are negative for complaint. Active Problems Problems At risk for sexually transmitted disease due to unprotected sex (V15.89) (Z91.89) Routine screening for STI (sexually transmitted infection) (V74.5) (Z11.3) Unprotected sex (V69.2) (Z72.51) Well woman exam (V72.31) (Z01.419) Social History Problems At risk for sexually transmitted disease due to unprotected sex (V15.89) (Z91.89) Unprotected sex (V69.2) (Z72.51) Allergies Medication No Known Drug Allergies Recorded By: Trinidad Whitney; 01/08/2023 11:42:41 AM Current Meds Medication NameInstruction hydrOXYzine HCl TABS Loratadine 10 MG Oral Tablet Melatonin TABS traZODone HCl TABS Vitals Vital Signs Recorded: 08Jan2023 11:21AM Ilpvmvpb562 Xzneghiki67 Height5 ft 4 in Guqcfx124 lb BMI Lnfddinvku75.85 kg/m2 BSA Calculated2.11 Tobacco Useb) No Falls Screening (Age 18+)a) No falls within the last year [id number] Gravida2 Para2 Pain Scale8 Physical Exam Constitutional: Alert and in no acute distress. Well developed, well nourished Head and Face: Head and face: normal Eyes: Normal external exam - nonicteric sclera, extraocular movements intact (EOMI) and no ptosis. Genitourinary: external genitalia: abnormal (mild erythema), but Bartholin's urethral and Kent's glands: normal, urethra: normal and perianal area: normal Vagina: normal. vaginal discharge. The discharge is scant, clear and thin. Psychiatric: alert and oriented x 3., affect normal to patient baseline and mood: appropriate Signatures Electronically signed by : Trinidad Whitney MD; Jan 08 2023 11:42AM EST (Author) Normal [facility] GC + CHLAMYDIA BY AMPLIFIED DETECTIONon 12-26-2022 CHLAMYDIA TRACH.,AMPLIFIED Negative Normal Negative [facility] Comment on above: Result Comment: The APTIMA Combo 2 assay is FDA-approved for Chlamydia trachomatis and Neisseria gonorrhoeae testing on female endocervical and vaginal swabs, ThinPrep liquid pap samples, male urine samples and urethral swabs. Performance characteristics for Chlamydia trachomatis and Neisseria gonorrhoeae testing on specific aop-DIG-tslltfzr sample types (female urine samples) have been validated by [facility]. This laboratory is certified by CLIA to perform high complexity testing. Samples from all other sites are not validated for this method. Performed By: #### G [facility] #### [facility] [address] [place] [address] N.GONORRHEA,AMPLIFIED Negative Normal Negative [facility] Comment on above: Result Comment: The APTIMA Combo 2 assay is FDA-approved for Chlamydia trachomatis and Neisseria gonorrhoeae testing on female endocervical and vaginal swabs, ThinPrep liquid pap samples, male urine samples and urethral swabs. Performance characteristics for Chlamydia trachomatis and Neisseria gonorrhoeae testing on specific fwg-MER-dirbxiol sample types (female urine samples) have been validated by [facility]. This laboratory is certified by CLIA to perform high complexity testing. Samples from all other sites are not validated for this method. Performed By: #### Aayush [facility] #### [facility] [address] [place], [place] TRICHOMONAS,NUCLEIC ACID DET ECTIONon 12-26-2022 TRICHOMONAS VAGINALIS Negative Normal Negative [facility] Comment on above: Result Comment: The APTIMA Trichomonas vaginalis assay is FDA-approved for testing on female endocervical swabs, vaginal swabs, and ThinPrep liquid pap samples. Performance characteristics for Trichomonas vaginalis on specific mos-YMU-akkghpac sample types (female and male urine and male urethral swabs) have been validated by [facility]. This laboratory is certified by CLIA to perform high complexity testing. Samples from all other sites are not validated for this method. Performance characteristics for Trichomonas Vaginalis testing on urine samples has been validated by [facility]. Testing on this sample type is not FDA-approved, but such approval is not necessary. This laboratory is certified by CLIA to perform high complexity testing. Performed By: #### Silas BCDF #### [facility] [address] [place], [place] GC + CHLAMYDIA BY AMPLIFIED DETECTIONon 12-25-2022 Lab Specimen Source Urine Normal [facility] Comment on above: Performed By: #### Aayush [facility] #### [facility] [address] [place], [place] Performed By: #### C BCDF #### [facility] [address] [place], [place] GC + Chlamydia By Amplified Detectionon 12-25-2022 C. trachomatis rRNA LILIANE+probe Ql (Unsp spec) Negative Negative MA-HGBKM-IIH [address] [place] Work Phone: Comment on above: The APTIMA Combo 2 a ssay is FDA-approved for Chlamydia trachomatis and Neisseria gonorrhoeae testing on female endocervical and vaginal swabs, ThinPrep liquid pap samples, male urine samples and urethral swabs. Performance characteristics for Chlamydia trachomatis and Neisseria gonorrhoeae testing on specific dey-RDO-fqpzmpiu sample types (female urine samples) have been validated by [facility]. This laboratory is certified by CLIA to perform high complexity testing. Samples from all other sites are not validated for this method. N. gonorrhoeae rRNA LILIANE+probe Ql (Unsp spec) Negative Negative NE-VSQKA-JOR [address] [place] Work Phone: Comment on above: SOURCE: Urine The AP SYEDA Combo 2 assay is FDA-approved for Chlamydia trachomatis and Neisseria gonorrhoeae testing on female endocervical and vaginal swabs, ThinPrep liquid pap samples, male urine samples and urethral swabs. Performance characteristics for Chlamydia trachomatis and Neisseria gonorrhoeae testing on specific byc-IZK-jqtjrvcw sample types (female urine samples) have been validated by [facility]. This laboratory is certified by CLIA to perform high complexity testing. Samples from all other sites are not validated for this method. HEPATITIS B SURFACE AGon HEP.B SURFACE AG Non-Reactive Normal NONREACTIVE [facility] Comment on above: Result Comment: Biot in interference may cause falsely decreased results. Patients taking a Biotin dose of up to 5 mg/day should refrain from taking Biotin for 24 hours before sample collection. Providers may contact their local laboratory for further information. Performed By: #### C BCDF #### [facility] [address] [place] [address] HEPATITIS C ABon 12-25-2022 HEPATITIS C AB Non-Reactive Normal NONREACTIVE [facility] Comment on above: Result Comment: Resu lts from patients taking biotin supplements or receiving high-dose biotin therapy should be interpreted with caution due to possible interference with this test. Providers may contact their local laboratory for further information. Performed By: #### H BSAG #### [facility] [address] [place] [address] HIV 1/2 ANTIGEN/ANTIBODY SCR EEN WITH REFLEX TO CONFIRMATIONon 12-25-2022 HIV 1/2 AG/AB SCREEN Non-Reactive Normal NONREACTIVE [facility] Comment on above: Result Comment: HIV Ag/Ab screen is performed using the Siemens Atellica HIV Ag/Ab Combo assay which detects the presence of HIV p24 antigen as well as antibodies to HIV-1 (Group M and O) and HIV-2. . No laboratory evidence of HIV infection. If acute HIV infection is suspected, consider testing for HIV RNA by PCR (viral load). Performed By: #### H IV #### [facility] [address] [place], [place] Lab Specimen Source Normal [facility] Comment on above: Performed By: #### H IV #### [facility] [address] [place], [place] Performed By: #### H BSAG #### [facility] [address] [place], [place] Performed By: #### C BCDF #### [facility] [address] [place], [place] HIV 1+2 Ab Qn (S) Non-Reactive See Below MG-FOOD GENERAL MANAGER-MAC [address] [place] Work Phone: Comment on above: SOURCE: Reference Ra nge: NONREACTIVE HIV Ag/Ab screen is performed using the Siemens Atellica HIV Ag/Ab Combo assay which detects the presence of HIV p24 antigen as well as antibodies to HIV-1 (Group M and O) and HIV-2..No laboratory evidence of HIV infection. If acute HIV infection is suspected, consider testing for HIV RNA by PCR (viral load). Hepatitis B Surface Antigeno n 12-25-2022 Hepatitis B Surface Antigen Non-Reactive See Below JJ-EWAHV-CGO [address] [place] Work Phone: Comment on above: SOURCE: Reference Ra nge: NONREACTIVE Biotin interference may cause falsely decreased results. Patients taking a Biotin dose of up to 5 mg/day should refrain from taking Biotin for 24 hours before sample collection. Providers may contact their local laboratory for further information. SOURCE: Reference Ra nge: NONREACTIVE Results from patients taking biotin supplements or receiving high-dose biotin therapy should be interpreted with caution due to possible interference with this test. Providers may contact their local laboratory for further information. IO HCG, Urine Test on 12-25-2022 HCG ( test) Ql (U) Negative XZ-IXFNH-SYQ [address] [place] Work Phone: No Panel Informationon 12-25 Negative Negative ME-RSVHQ-CAH [address] [place] Work Phone: Comment on above: SOURCE: Urine The AP SYEDA Trichomonas vaginalis assay is FDA-approved for testing on female endocervical swabs, vaginal swabs, and ThinPrep liquid pap samples. Performance characteristics for Trichomonas vaginalis on specific kvo-EKL-umtcztuf sample types (female and male urine and male urethral swabs) have been validated by [facility]. This laboratory is certified by CLIA to perform high complexity testing. Samples from all other sites are not validated for this method.Performance characteristics for Trichomonas Vaginalis testing on urine samples has been validated by [facility]. Testing on this sample type is not FDA-approved, but such approval is not necessary. This laboratory is certified by CLIA to perform high complexity testing. SYPHILIS SCREENING WITH REFL EXon 12-25-2022 SYPHILIS TOTAL AB Non-Reactive Normal NONREACTIVE [facility] Comment on above: Result Comment: No s erologic evidence of syphilis infection. If recent exposure is suspected, repeat syphilis testing is recommended in 2 to 4 weeks. Performed By: #### U ARFX #### [facility] [address] [place] [address] T. pallidum IgG+IgM IA Ql (S) Non-Reactive See Below HY-EDAJC-YDM [address] [place] Work Phone: Comment on above: Reference Range: NON REACTIVENo serologic evidence of syphilis infection.If recent exposure is suspected, repeat syphilis testingis recommended in 2 to 4 weeks. URINALYSIS, MCKESSON (POCT)o n 12-22-2022 Bilirubin (U) [Mass/Vol] Negative [facility] Work Phone: Glucose Auto test strip (U) [Mass/Vol] Negative [facility] Work Phone: Hemoglobin Auto test strip (U) [Mass/Vol] Negative NEGAT[facility] Work Phone: INTERNAL CONTROL PASS PASS [facility] Work Phone: Ketones Ql (U) Negative NEGATIVE [facility] Work Phone: [phone] Nitrite Ql (U) Negative NEGATIVE [facility] Work Phone: pH (U) 6.0 [pH] 5.5 - 9.0 [facility] Work Phone: [phone] Protein Ql (U) 15+/- Abnormal NEGATIVE mg/dL [facility] Work Phone: [phone] Specific gravity (U) [Rel density] 1.020 1.000 - 1.030 [facility] Work Phone: [phone] Urobilinogen (U) [Mass/Vol] 0.2 mg/dL Abnormal NORMAL mg/dL [facility] Work Phone: [phone] WBC (U) [#/Vol] Negative NEGATIVE Leroy/uL [facility] Work Phone: [phone] Blood Pressure Cuff Sizeon 0 12-12-2022 Fall risk assessment a) No falls within the last year HT-ELFHF-WTB [address] [place] Work Phone: Last menstrual period start date 04Dec2022 YU-HHJWA-BOZ [address] [place] Work Phone: Tobacco use status CPHS b) No MD-GIZTD-AYD [address] [place] Work Phone: Blood Pressure Cuff Size Adult PB-BJZJD-MCO [address] [place] Work Phone: GC + CHLAMYDIA BY AMPLIFIED DETECTIONon 12-12-2022 CHLAMYDIA TRACH.,AMPLIFIED Negative Normal Negative [facility] Comment on above: Result Comment: The APTIMA Combo 2 assay is FDA-approved for Chlamydia trachomatis and Neisseria gonorrhoeae testing on female endocervical and vaginal swabs, ThinPrep liquid pap samples, male urine samples and urethral swabs. Performance characteristics for Chlamydia trachomatis and Neisseria gonorrhoeae testing on specific ipd-NKK-tgzbzdpv sample types (female urine samples) have been validated by [facility]. This laboratory is certified by CLIA to perform high complexity testing. Samples from all other sites are not validated for this method. Performed By: #### G [facility] #### [facility] [address] [place] [address] N.GONORRHEA,AMPLIFIED Negative Normal Negative [facility] Comment on above: Result Comment: The APTIMA Combo 2 assay is FDA-approved for Chlamydia trachomatis and Neisseria gonorrhoeae testing on female endocervical and vaginal swabs, ThinPrep liquid pap samples, male urine samples and urethral swabs. Performance characteristics for Chlamydia trachomatis and Neisseria gonorrhoeae testing on specific mdy-SIP-owpcmsag sample types (female urine samples) have been validated by [facility]. This laboratory is certified by CLIA to perform high complexity testing. Samples from all other sites are not validated for this method. Performed By: #### [facility] #### [facility] [address] [place] [address] Lab Specimen Source Urine Normal [facility] Comment on above: Performed By: #### G CCHA #### [facility] [address] [place] [address] Performed By: #### C BCDF #### [facility] [address] [place] [address] GC + Chlamydia By Amplified Detectionon 12-12-2022 C. trachomatis rRNA LILIANE+probe Ql (Unsp spec) Negative Negative LX-AFEMQ-Kbe cost[address] Work Phone: Comment on above: The APTIMA Combo 2 a ssay is FDA-approved for Chlamydia trachomatis and Neisseria gonorrhoeae testing on female endocervical and vaginal swabs, ThinPrep liquid pap samples, male urine samples and urethral swabs. Performance characteristics for Chlamydia trachomatis and Neisseria gonorrhoeae testing on specific zbf-VEU-miilrjqc sample types (female urine samples) have been validated by [facility]. This laboratory is certified by CLIA to perform high complexity testing. Samples from all other sites are not validated for this method. N. gonorrhoeae rRNA LILIANE+probe Ql (Unsp spec) Negative Negative RR-SPMXI-Hea [address] Work Phone: Comment on above: SOURCE: Urine The AP SYEDA Combo 2 assay is FDA-approved for Chlamydia trachomatis and Neisseria gonorrhoeae testing on female endocervical and vaginal swabs, ThinPrep liquid pap samples, male urine samples and urethral swabs. Performance characteristics for Chlamydia trachomatis and Neisseria gonorrhoeae testing on specific rhj-MDK-jyqehtwz sample types (female urine samples) have been validated by [facility]. This laboratory is certified by CLIA to perform high complexity testing. Samples from all other sites are not validated for this method. Laboratory - Urinalysison Yeast LM Ql (Urine sed) ABSENT ET-PVEUY-Opv cost[address] Work Phone: No Panel Informationon 12-12 Negative Negative EP-AXFYT-Mve [address] Work Phone: Comment on above: SOURCE: Urine The AP SYEDA Trichomonas vaginalis assay is FDA-approved for testing on female endocervical swabs, vaginal swabs, and ThinPrep liquid pap samples. Performance characteristics for Trichomonas vaginalis on specific bjp-OAN-kpstbelu sample types (female and male urine and male urethral swabs) have been validated by [facility]. This laboratory is certified by CLIA to perform high complexity testing. Samples from all other sites are not validated for this method.Performance characteristics for Trichomonas Vaginalis testing on urine samples has been validated by [facility]. Testing on this sample type is not FDA-approved, but such approval is not necessary. This laboratory is certified by CLIA to perform high complexity testing. ABSENT WV-FNXOV-Aua [address] Work Phone: [phone] KC-HTDDX-Ede [address] Work Phone: Comment on above: Interpretation of th e Mark Anthony Score0-3.....Normal vaginal microbiota4-6.....Intermediate results7-10....Bacterial vaginosis TRICHOMONAS,NUCLEIC ACID DET ECTIONon 12-12-2022 TRICHOMONAS VAGINALIS Negative Normal Negative [facility] Comment on above: Result Comment: The APTIMA Trichomonas vaginalis assay is FDA-approved for testing on female endocervical swabs, vaginal swabs, and ThinPrep liquid pap samples. Performance characteristics for Trichomonas vaginalis on specific zft-GPK-ayrlasrz sample types (female and male urine and male urethral swabs) have been validated by [facility]. This laboratory is certified by CLIA to perform high complexity testing. Samples from all other sites are not validated for this method. Performance characteristics for Trichomonas Vaginalis testing on urine samples has been validated by [facility]. Testing on this sample type is not FDA-approved, but such approval is not necessary. This laboratory is certified by CLIA to perform high complexity testing. Performed By: #### C BCDF #### [facility] [address] [place] [id number] VAGINITIS GRAM STAIN FOR FIDELINA TERIAL VAGINOSIS + YEASTon 12-12-2022 CLUE CELLS ABSENT Normal [facility] Comment on above: Performed By: #### C BCDF #### [facility] [address] [place] [id number] MARK ANTHONY SCORE 1 Normal [facility] Comment on above: Result Comment: Inte rpretation of the Mark Anthony Score 0-3.....Normal vaginal microbiota 4-6.....Intermediate results 7-10....Bacterial vaginosis Performed By: #### C BCDF #### [facility] [address] [place] [address] Yeast LM Ql (Urine sed) ABSENT Normal [facility] Comment on above: Performed By: #### C BCDF #### [facility] [address] [place] [address] URINALYSIS, GENNYSON (POCT)o n 10-22-2022 Bilirubin (U) [Mass/Vol] Negative [facility] Work Phone: [phone] Glucose Auto test strip (U) [Mass/Vol] Negative [facility] Work Phone: [phone] Hemoglobin Auto test strip (U) [Mass/Vol] Negative [facility] Work Phone: [phone] INTERNAL CONTROL PASS PASS [facility] Work Phone: [phone] Ketones Ql (U) Negative [facility] Work Phone: [phone] Nitrite Ql (U) Negative [facility] Work Phone: [phone] pH (U) 6.0 [pH] 5.5 - 9.0 [facility] Work Phone: [phone] Protein Ql (U) 15+/- Abnormal NEGATIVE mg/dL [facility] Work Phone: Specific gravity (U) [Rel density] 1.020 1.000 - 1.030 [facility] Work Phone: Urobilinogen (U) [Mass/Vol] 0.2 mg/dL Abnormal NORMAL mg/dL [facility] Work Phone: WBC (U) [#/Vol] Negative NEGATIVE Leroy/uL [facility] Work Phone: [phone] URINALYSIS, MCKESSON (POCT)o n 09-18-2022 Bilirubin (U) [Mass/Vol] Negative [facility] Work Phone: [phone] Glucose Auto test strip (U) [Mass/Vol] Negative [facility] Work Phone: [phone] Hemoglobin Auto test strip (U) [Mass/Vol] Negative [facility] Work Phone: [phone] INTERNAL CONTROL PASS PASS [facility] Work Phone: [phone] Ketones Ql (U) Negative [facility] Work Phone: [phone] Nitrite Ql (U) Negative [facility] Work Phone: [phone] pH (U) 6.5 [pH] 5.5 - 9.0 [facility] Work Phone: [phone] Protein Ql (U) 15+/- Abnormal NEGATIVE mg/dL [facility] Work Phone: [phone] Specific gravity (U) [Rel density] 1.020 1.000 - 1.030 [facility] Work Phone: [phone] Urobilinogen (U) [Mass/Vol] 0.2 mg/dL Abnormal NORMAL mg/dL [facility] Work Phone: [phone] WBC (U) [#/Vol] Negative NEGATIVE Leroy/uL [facility] Work Phone: [phone] Absolute lymphocyte countOrd ered By: Dr. Godfrey on 08-22-2022 Lymphocytes Auto (Unsp spec) [#/Vol] 2.36 10*3/uL 0.83-4.51 [facility] Basophil percentageOrdered B y: Dr. Godfrey on 08-22-2022 Basophils/100 WBC (Bld) 0.6 % 0-1 [facility] Bilirubin [Mass/Vol] 0.10 mg/dL 0.20-1.00 [facility] Comment on above: For patients on eltr ombopag therapy, use of Dimension [place] TBIL is not recommended. Chloride [Moles/Vol] 107 mmol/L 98-107 [facility] Eosinophils/100 WBC (Bld) 6.9 % 0-5 [facility] Glucose [Mass/Vol] 90 mg/dL 74-106 [facility] Neutrophils (Bld) [#/Vol] 3.0 10*3/uL 2.0-7.7 [facility] Neutrophils/100 WBC (Bld) 46.9 % 47-70 [facility] Potassium [Moles/Vol] 4.2 mmol/L 3.5-5.1 [facility] Protein [Mass/Vol] 6.1 g/dL 6.4-8.2 [facility] Sodium [Moles/Vol] 140 mmol/L 136-145 [facility] WBC (Bld) [#/Vol] 6.4 10*3/uL 4.4-11.0 [facility] Blood erythrocytes count (nu mber/volume)Ordered By: Dr. Godfrey on 08-22-2022 RBC (Bld) [#/Vol] 4.23 10*6/uL 4.2-5.4 [facility] Blood hemoglobin measurement (mass/volume)Ordered By: Dr. Godfrey on 08-22-2022 Hemoglobin (Bld) [Mass/Vol] 12.1 g/dL 12.0-15.0 [facility] Blood lymphocytes/100 leukoc ytesOrdered By: Dr. Godfrey on 08-22-2022 Lymphocytes/100 WBC (Bld) 36.9 % 19-41 [facility] Blood monocytes/100 leukocyt esOrdered By: Dr. Godfrey on 08-22-2022 Monocytes/100 WBC (Bld) 8.4 % 0-10 [facility] Blood platelet mean volumeOr dered By: Dr. Godfrey on 08-22-2022 Platelet mean volume (Bld) [Entitic vol] 11.0 fL 6.2-12.0 [facility] Determination of erythrocyte mean corpuscular volume (MCV)Ordered By: Dr. Godfrey on 08-22-2022 MCV (RBC) [Entitic vol] 89.6 fL 81-99 [facility] Hematocrit Auto (Bld) [Volum e fraction]Ordered By: Dr. Godfrey on 08-22-2022 Hematocrit (Bld) [Volume fraction] 37.9 % 37-47 [facility] Laboratory - Chemistry and C hemistry - challengeOrdered By: Dr. Godfrey on 08-22-2022 ALP [Catalytic activity/Vol] 61 U/L 45-117 [facility] ALT [Catalytic activity/Vol] 21 U/L 13-56 [facility] CO2 [Moles/Vol] 27.0 mmol/L 21.0-32.0 [facility] Globulin (S) [Mass/Vol] 2.9 g/dL 2.2-4.2 [facility] Urea nitrogen/Creatinine [Mass ratio] 15.9 mg/mg 10-20 [facility] Laboratory - Hematology and Cell countsOrdered By: Dr. Godfrey on 08-22-2022 Erythrocyte distribution width (RBC) [Entitic vol] 42.7 fL 35.1-43.9 [facility] Erythrocyte distribution width (RBC) [Ratio] 13.1 % 11.6-14.6 [facility] Immature granulocytes/100 WBC (Bld) 0.300 % 0.0-0.9 [facility] Comment on above: IG% - Immature Granu locytes (promyelocytes, myelocytes and metamyelocytes) > 1% indicates that a LEFT SHIFT is Present. MCH (RBC) [Entitic mass] 28.6 pg 27.0-32.0 [facility] Nucleated RBC/100 WBC (Bld) [Ratio] 0.3 % 0-5 [facility] MCHC Auto (RBC) [Mass/Vol]Or dered By: Dr. Godfrey on 08-22-2022 MCHC (RBC) [Mass/Vol] 31.9 g/dL 32-36 [facility] No Panel InformationOrdered By: Dr. Godfrey on 08-22-2022 Estimated Creatinine Clearance Calc 104.82 ml/min [facility] Estimated GFR (MDRD) Amer 130 mL/min >60 [facility] Comment on above: GFR Calc Estimated GFR (MDRD) Non-Af Amer 107 mL/min >60 [facility] Comment on above: Non- GFR Calc Platelets bldOrdered By: Dr. Godfrey on 08-22-2022 Platelets (Bld) [#/Vol] 305 10*3/uL 150-450 [facility] Serum or plasma albumin alix urement (mass/volume)Ordered By: Dr. Godfrey on 08-22-2022 Albumin [Mass/Vol] 3.2 g/dL 3.2-5.0 [facility] Serum or plasma albumin/glob ulin mass ratioOrdered By: Dr. Godfrey on 08-22-2022 Albumin/Globulin [Mass ratio] 1.1 {ratio} 0.9-2.4 [facility] Serum or plasma calcium alix urement (mass/volume)Ordered By: Dr. Godfrey on 08-22-2022 Calcium [Mass/Vol] 8.4 mg/dL 8.5-10.1 [facility] Serum or plasma creatinine m easurement (mass/volume)Ordered By: Dr. Godfrey on 08-22-2022 Creatinine [Mass/Vol] 0.69 mg/dL 0.55-1.02 [facility] Comment on above: The validity of the calculated GFR & GFRAA in patients over 70 years has not been determined. Clinical correlation is essential. Serum or plasma urea nitroge n measurement (mass/volume)Ordered By: Dr. Godfrey on 08-22-2022 Urea nitrogen [Mass/Vol] 11 mg/dL 7-18 [facility] Thin prep Papanicolaou smear with manual screeningOrdered By: Dr. Godfrey on 08-22-2022 Thin prep Papanicolaou smear with manual screening 11 U/L 15-37 [facility] Thin prep Papanicolaou smear with manual screening 6 5-15 [facility] Basophil percentageOrdered B y: Dr. Vargas on 08-19-2022 C. trachomatis DNA LILIANE+probe Ql (Unsp spec) Negative Negative [facility] Basophil percentage 0 SEEN /hpf 0-5 [facility] Bilirubin Test strip Ql (U)O rdered By: Dr. Vargas on 08-19-2022 Bilirubin Ql (U) Negative Negative [facility] Ketones Test strip Ql (U)Ord ered By: Dr. Vargas on 08-19-2022 Ketones Ql (U) 150 mg/dl Negative [facility] Comment on above: CRITICAL VALUE *HCRI TICAL VALUE VERIFIED. CALLED TO Roxana BROWN RN ([id number])08/19/22 [id number] Rolan Guevara.RESULTS READ BACK BY SAME . Laboratory - Drug toxicology Ordered By: Dr. Lisa on 08-19-2022 Amphetamines Ql (U) Positive <1000 ng/mL [facility] Benzodiazepines Ql (U) Negative < 200 ng/mL [facility] Cannabinoids Screen Ql (U) Positive < 50 ng/mL [facility] Cocaine Ql (U) Negative < 300 ng/mL [facility] Opiates Ql (U) Negative < 300 ng/mL [facility] Mucus LM Ql (Urine sed)Order ed By: Dr. Vargas on 08-19-2022 Mucus Ql (Urine sed) 1+ /hpf [facility] Neisseria gonorrhoeae detect ion by PCROrdered By: Dr. Vargas on 08-19-2022 N. gonorrhoeae DNA LILIANE+probe Ql (Cervical mucus) Negative Negative [facility] Nitrite Test strip Ql (U)Ord ered By: Dr. Vargas on 08-19-2022 Nitrite Ql (U) Negative Negative [facility] No Panel InformationOrdered By: Dr. Lisa on 08-19-2022 MDMA (Ecstasy) Screen Positive < 500 ng/mL [facility] Urine Barbiturates Screen Positive < 200 ng/mL [facility] Urine Drug Screen Comment [facility] Comment on above: CONFIRMATORY TESTING FOR ALL POSITIVE URINE DRUG SCREENRESULTS WILL ONLY BE SENT OUT UPON PHYSICIAN ORDER. VISTA Urine Drug Screen methods provide only preliminaryanalytical test results. A more specific alternate chemicalmethod must be used in order to obtain a confirmedanalytical result. Gas chromatography/mass spectrometery(GC/MS) is the preferred confirmatory method. Clinicalconsideration and professional judgement should be appliedto any drug of abuse test result, particularly whenpreliminary positive results are used. URINE TCA TESTING MUST BE ORDERED SEPARATELY. USE TESTMNEMONIC: [facility] Urine Methadone Screen Negative < 300 ng/mL [facility] Protein Test strip Ql (U)Ord ered By: Dr. Vargas on 08-19-2022 Protein Ql (U) 30 mg/dl Negative [facility] Squamous epithelial cells de tection in urine sediment by light microscopyOrdered By: Dr. Vargas on 08-19-2022 Epithelial cells.squamous LM Ql (Urine sed) 0 SEEN /hpf 5-10 [facility] Urine blood detectionOrdered By: Dr. Vargas on 08-19-2022 RBC Ql (U) 25 /ul Negative [facility] RBC Ql (U) 0-5 SEEN /hpf 0-5 [facility] Urine clarityOrdered By: Dr. Vargas on 08-19-2022 Clarity (U) Clear Clear [facility] Urine color determinationOrd ered By: Dr. Vargas on 08-19-2022 Color (U) Yellow Yellow [facility] Urine glucose detectionOrder ed By: Dr. Vargas on 08-19-2022 Glucose Ql (U) Normal mg/dl Normal [facility] Urine leukocyte esterase det ection by dipstickOrdered By: Dr. Vargas on 08-19-2022 Leukocyte esterase Test strip Ql (U) Negative Negative [facility] Urine pHOrdered By: Dr. Jerry watt on 08-19-2022 pH (U) 6.0 [pH] 5.0 - 8.0 [facility] Urine phencyclidine (PCP) de tectionOrdered By: Dr. Lisa on 08-19-2022 Phencyclidine Ql (U) Negative < 25 ng/mL [facility] Urine sediment bacteria coun t by microscopy (number/high power field)Ordered By: Dr. Vargas on 08-19-2022 Bacteria LM.HPF (Urine sed) [#/Area] 1 /[HPF] None Seen [facility] Urine specific gravity measu rementOrdered By: Dr. Vargas on 08-19-2022 Specific gravity (U) [Rel density] 1.025 1.002-1.030 [facility] Urobilinogen Auto test strip Ql (U)Ordered By: Dr. Vargas on 08-19-2022 Urobilinogen Ql (U) Normal mg/dl Normal [facility] Absolute lymphocyte countOrd ered By: Dr. Lisa on 08-18-2022 Lymphocytes Auto (Unsp spec) [#/Vol] 2.78 10*3/uL 0.83-4.51 [facility] Basophil percentageOrdered B y: Dr. Lisa on 08-18-2022 Basophils/100 WBC (Bld) 0.3 % 0-1 [facility] Bilirubin [Mass/Vol] 0.70 mg/dL 0.20-1.00 [facility] Comment on above: For patients on eltr ombopag therapy, use of Dimension [place] TBIL is not recommended. Chloride [Moles/Vol] 106 mmol/L 98-107 [facility] Eosinophils/100 WBC (Bld) 0.1 % 0-5 [facility] Glucose [Mass/Vol] 128 mg/dL 74-106 [facility] Comment on above: Fasting Glucose resu lt greater than or equal to 126 mg/dL suggests DIABETES MELLITUS per A.D.A. criteria. Neutrophils (Bld) [#/Vol] 13.5 10*3/uL 2.0-7.7 [facility] Neutrophils/100 WBC (Bld) 77.2 % 47-70 [facility] Potassium [Moles/Vol] 3.4 mmol/L 3.5-5.1 [facility] Protein [Mass/Vol] 8.9 g/dL 6.4-8.2 [facility] Sodium [Moles/Vol] 140 mmol/L 136-145 [facility] WBC (Bld) [#/Vol] 17.5 10*3/uL 4.4-11.0 [facility] Beta hCG serum qualOrdered B y: Dr. Lisa on 08-18-2022 Beta HCG ( test) Ql Negative [facility] Blood erythrocytes count (nu mber/volume)Ordered By: Dr. Lisa on 08-18-2022 RBC (Bld) [#/Vol] 4.98 10*6/uL 4.2-5.4 [facility] Blood hemoglobin measurement (mass/volume)Ordered By: Dr. Lisa on 08-18-2022 Hemoglobin (Bld) [Mass/Vol] 14.1 g/dL 12.0-15.0 [facility] Blood lymphocytes/100 leukoc ytesOrdered By: Dr. Lisa on 08-18-2022 Lymphocytes/100 WBC (Bld) 15.9 % 19-41 [facility] Blood monocytes/100 leukocyt esOrdered By: Dr. Lisa on 08-18-2022 Monocytes/100 WBC (Bld) 6.1 % 0-10 [facility] Blood platelet mean volumeOr dered By: Dr. Lisa on 08-18-2022 Platelet mean volume (Bld) [Entitic vol] 10.7 fL 6.2-12.0 [facility] Determination of erythrocyte mean corpuscular volume (MCV)Ordered By: Dr. Lisa on 08-18-2022 MCV (RBC) [Entitic vol] 89.8 fL 81-99 [facility] Hematocrit Auto (Bld) [Volum e fraction]Ordered By: Dr. Lisa on 08-18-2022 Hematocrit (Bld) [Volume fraction] 44.7 % 37-47 [facility] Laboratory - Chemistry and C hemistry - challengeOrdered By: Dr. Lisa on 08-18-2022 ALP [Catalytic activity/Vol] 75 U/L 45-117 [facility] ALT [Catalytic activity/Vol] 28 U/L 13-56 [facility] CO2 [Moles/Vol] 24.0 mmol/L 21.0-32.0 [facility] Globulin (S) [Mass/Vol] 4.1 g/dL 2.2-4.2 [facility] Urea nitrogen/Creatinine [Mass ratio] 13.9 mg/mg 10-20 [facility] Laboratory - Hematology and Cell countsOrdered By: Dr. Lisa on 08-18-2022 Erythrocyte distribution width (RBC) [Entitic vol] 45.5 fL 35.1-43.9 [facility] Erythrocyte distribution width (RBC) [Ratio] 13.9 % 11.6-14.6 [facility] Immature granulocytes/100 WBC (Bld) 0.400 % 0.0-0.9 [facility] Comment on above: IG% - Immature Granu locytes (promyelocytes, myelocytes and metamyelocytes) > 1% indicates that a LEFT SHIFT is Present. MCH (RBC) [Entitic mass] 28.3 pg 27.0-32.0 [facility] Nucleated RBC/100 WBC (Bld) [Ratio] 0 % 0-[address] [facility] Auto (RBC) [Mass/Vol]Or dered By: Dr. Lisa on 08-18-2022 MCHC (RBC) [Mass/Vol] 31.5 g/dL 32-36 [facility] No Panel InformationOrdered By: Dr. Lisa on 08-18-2022 Estimated Creatinine Clearance Calc 62.89 ml/min [facility] Estimated GFR (MDRD) Amer 72 mL/min >60 [facility] Comment on above: GFR Calc Estimated GFR (MDRD) Non-Af Amer 60 mL/min >60 [facility] Comment on above: Non- GFR Calc Ethyl Alcohol Level < 3.0 mg/dL [facility] Comment on above: The serum:whole bloo d ethanol ratio is approximately 1.14and varies slightly with hematocrit. Medical Alcohol reference interval and critical value innon-tolerant individuals; 50 - 100 Impairment 100 Intoxication 100 - 250 Severe Poisoning 250 - 400 Deep/possible fatal coma Platelets bldOrdered By: Dr. Lisa on 08-18-2022 Platelets (Bld) [#/Vol] 489 10*3/uL 150-450 [facility] Serum or plasma albumin alix urement (mass/volume)Ordered By: Dr. Lisa on 08-18-2022 Albumin [Mass/Vol] 4.8 g/dL 3.2-5.0 [facility] Serum or plasma albumin/glob ulin mass ratioOrdered By: Dr. Lisa on 08-18-2022 Albumin/Globulin [Mass ratio] 1.2 {ratio} 0.9-2.4 [facility] Serum or plasma calcium alix urement (mass/volume)Ordered By: Dr. Lisa on 08-18-2022 Calcium [Mass/Vol] 9.8 mg/dL 8.5-10.1 [facility] Serum or plasma creatinine m easurement (mass/volume)Ordered By: Dr. Lisa on 08-18-2022 Creatinine [Mass/Vol] 1.15 mg/dL 0.55-1.02 [facility] Comment on above: The validity of the calculated GFR & GFRAA in patients over 70 years has not been determined. Clinical correlation is essential. Serum or plasma urea nitroge n measurement (mass/volume)Ordered By: Dr. Lisa on 08-18-2022 Urea nitrogen [Mass/Vol] 16 mg/dL 7-18 [facility] Thin prep Papanicolaou smear with manual screeningOrdered By: Dr. Lisa on 08-18-2022 Thin prep Papanicolaou smear with manual screening 20 U/L 15-37 [facility] Thin prep Papanicolaou smear with manual screening 10 5-15 [facility] Absolute lymphocyte countOrd ered By: Dr. Hartmann on 06-08-2022 Lymphocytes Auto (Unsp spec) [#/Vol] 1.17 10*3/uL 0.83-4.51 [facility] Basophil percentageOrdered B y: Dr. Hartmann on 06-08-2022 Basophils/100 WBC (Bld) 0.3 % 0-1 [facility] Bilirubin [Mass/Vol] 0.50 mg/dL 0.20-1.00 [facility] Comment on above: For patients on eltr ombopag therapy, use of Dimension [place] TBIL is not recommended. Chloride [Moles/Vol] 111 mmol/L 98-107 [facility] Eosinophils/100 WBC (Bld) 0.0 % 0-5 [facility] Glucose [Mass/Vol] 125 mg/dL 74-106 [facility] Comment on above: Fasting Glucose resu lt from 100 to 125 mg/dL suggests IMPAIRED HOMEOSTASIS per A.D.A. criteria. Neutrophils (Bld) [#/Vol] 11.1 10*3/uL 2.0-7.7 [facility] Neutrophils/100 WBC (Bld) 87.5 % 47-70 [facility] Potassium [Moles/Vol] 3.5 mmol/L 3.5-5.1 [facility] Protein [Mass/Vol] 7.6 g/dL 6.4-8.2 [facility] Sodium [Moles/Vol] 142 mmol/L 136-145 [facility] WBC (Bld) [#/Vol] 12.7 10*3/uL 4.4-11.0 [facility] Beta hCG serum qualOrdered B y: Dr. Hartmann on 06-08-2022 Beta HCG ( test) Ql Negative [facility] Blood erythrocytes count (nu mber/volume)Ordered By: Dr. Hartmann on 06-08-2022 RBC (Bld) [#/Vol] 4.71 10*6/uL 4.2-5.4 [facility] Blood hemoglobin measurement (mass/volume)Ordered By: Dr. Hartmann on 06-08-2022 Hemoglobin (Bld) [Mass/Vol] 13.6 g/dL 12.0-15.0 [facility] Blood lymphocytes/100 leukoc ytesOrdered By: Dr. Hartmann on 06-08-2022 Lymphocytes/100 WBC (Bld) 9.2 % 19-41 [facility] Blood monocytes/100 leukocyt esOrdered By: Dr. Hartmann on 06-08-2022 Monocytes/100 WBC (Bld) 2.5 % 0-10 [facility] Blood platelet mean volumeOr dered By: Dr. Hartmann on 06-08-2022 Platelet mean volume (Bld) [Entitic vol] 10.4 fL 6.2-12.0 [facility] Determination of erythrocyte mean corpuscular volume (MCV)Ordered By: Dr. Hartmann on 06-08-2022 MCV (RBC) [Entitic vol] 88.3 fL 81-99 [facility] Hematocrit Auto (Bld) [Volum e fraction]Ordered By: Dr. Hartmann on 06-08-2022 Hematocrit (Bld) [Volume fraction] 41.6 % 37-47 [facility] Laboratory - Chemistry and C hemistry - challengeOrdered By: Dr. Hartmann on 06-08-2022 ALP [Catalytic activity/Vol] 72 U/L 45-117 [facility] ALT [Catalytic activity/Vol] 30 U/L 13-56 [facility] CO2 [Moles/Vol] 25.0 mmol/L 21.0-32.0 [facility] Globulin (S) [Mass/Vol] 3.7 g/dL 2.2-4.2 [facility] Lipase [Catalytic activity/Vol] 43 U/L 73-393 [facility] Urea nitrogen/Creatinine [Mass ratio] 15.9 mg/mg 10-20 [facility] Laboratory - Hematology and Cell countsOrdered By: Dr. Hartmann on 06-08-2022 Erythrocyte distribution width (RBC) [Entitic vol] 46.4 fL 35.1-43.9 [facility] Erythrocyte distribution width (RBC) [Ratio] 14.3 % 11.6-14.6 [facility] Immature granulocytes/100 WBC (Bld) 0.500 % 0.0-0.9 [facility] Comment on above: IG% - Immature Granu locytes (promyelocytes, myelocytes and metamyelocytes) > 1% indicates that a LEFT SHIFT is Present. MCH (RBC) [Entitic mass] 28.9 pg 27.0-32.0 [facility] Nucleated RBC/100 WBC (Bld) [Ratio] 0 % 0-5 [facility] MCHC Auto (RBC) [Mass/Vol]Or dered By: Dr. Hartmann on 06-08-2022 MCHC (RBC) [Mass/Vol] 32.7 g/dL 32-36 [facility] No Panel InformationOrdered By: Dr. Hartmann on 06-08-2022 Estimated Creatinine Clearance Calc 88.20 ml/min [facility] Estimated GFR (MDRD) Amer 107 mL/min >60 [facility] Comment on above: GFR Calc Estimated GFR (MDRD) Non-Af Amer 88 mL/min >60 [facility] Comment on above: Non- GFR Calc Platelets bldOrdered By: Dr. Hartmann on 06-08-2022 Platelets (Bld) [#/Vol] 390 10*3/uL 150-450 [facility] Serum or plasma albumin alix urement (mass/volume)Ordered By: Dr. Hartmann on 06-08-2022 Albumin [Mass/Vol] 3.9 g/dL 3.2-5.0 [facility] Serum or plasma albumin/glob ulin mass ratioOrdered By: Dr. Hartmann on 06-08-2022 Albumin/Globulin [Mass ratio] 1.1 {ratio} 0.9-2.4 [facility] Serum or plasma calcium alix urement (mass/volume)Ordered By: Dr. Hartmann on 06-08-2022 Calcium [Mass/Vol] 8.7 mg/dL 8.5-10.1 [facility] Serum or plasma creatinine m easurement (mass/volume)Ordered By: Dr. Hartmann on 06-08-2022 Creatinine [Mass/Vol] 0.82 mg/dL 0.55-1.02 [facility] Comment on above: The validity of the calculated GFR & GFRAA in patients over 70 years has not been determined. Clinical correlation is essential. Serum or plasma urea nitroge n measurement (mass/volume)Ordered By: Dr. Hartmann on 06-08-2022 Urea nitrogen [Mass/Vol] 13 mg/dL 7-18 [facility] Thin prep Papanicolaou smear with manual screeningOrdered By: Dr. Hartmann on 06-08-2022 Thin prep Papanicolaou smear with manual screening 16 U/L 15-37 [facility] Thin prep Papanicolaou smear with manual screening 6 5-15 [facility] Absolute lymphocyte countOrd ered By: Dr. Brown on 06-07-2022 Lymphocytes Auto (Unsp spec) [#/Vol] 3.06 10*3/uL 0.83-4.51 [facility] Basophil percentageOrdered B y: Dr. Brown on 06-07-2022 Basophil percentage 5-10 SEEN /hpf 0-5 [facility] Basophils/100 WBC (Bld) 0.5 % 0-1 [facility] Bilirubin [Mass/Vol] 0.30 mg/dL 0.20-1.00 [facility] Comment on above: For patients on eltr ombopag therapy, use of Dimension [place] TBIL is not recommended. Chloride [Moles/Vol] 107 mmol/L 98-107 [facility] Eosinophils/100 WBC (Bld) 1.0 % 0-5 [facility] Glucose [Mass/Vol] 105 mg/dL 74-106 [facility] Comment on above: Fasting Glucose resu lt from 100 to 125 mg/dL suggests IMPAIRED HOMEOSTASIS per A.D.A. criteria. Neutrophils (Bld) [#/Vol] 9.4 10*3/uL 2.0-7.7 [facility] Neutrophils/100 WBC (Bld) 69.7 % 47-70 [facility] Potassium [Moles/Vol] 3.9 mmol/L 3.5-5.1 [facility] Protein [Mass/Vol] 7.6 g/dL 6.4-8.2 [facility] Sodium [Moles/Vol] 140 mmol/L 136-145 [facility] WBC (Bld) [#/Vol] 13.5 10*3/uL 4.4-11.0 [facility] Beta hCG serum qualOrdered B y: Dr. Brown on 06-07-2022 Beta HCG ( test) Ql Negative [facility] Bilirubin Test strip Ql (U)O rdered By: Dr. Brown on 06-07-2022 Bilirubin Ql (U) Negative Negative [facility] Blood erythrocytes count (nu mber/volume)Ordered By: Dr. Brown on 06-07-2022 RBC (Bld) [#/Vol] 4.79 10*6/uL 4.2-5.4 [facility] Blood hemoglobin measurement (mass/volume)Ordered By: Dr. Brown on 06-07-2022 Hemoglobin (Bld) [Mass/Vol] 13.8 g/dL 12.0-15.0 [facility] Blood lymphocytes/100 leukoc ytesOrdered By: Dr. Brown on 06-07-2022 Lymphocytes/100 WBC (Bld) 22.7 % 19-41 [facility] Blood monocytes/100 leukocyt esOrdered By: Dr. Brown on 06-07-2022 Monocytes/100 WBC (Bld) 5.7 % 0-10 [facility] Blood platelet mean volumeOr dered By: Dr. Brown on 06-07-2022 Platelet mean volume (Bld) [Entitic vol] 10.1 fL 6.2-12.0 [facility] Determination of erythrocyte mean corpuscular volume (MCV)Ordered By: Dr. Brown on 06-07-2022 MCV (RBC) [Entitic vol] 87.7 fL 81-99 [facility] Hematocrit Auto (Bld) [Volum e fraction]Ordered By: Dr. Brown on 06-07-2022 Hematocrit (Bld) [Volume fraction] 42.0 % 37-47 [facility] Influenza virus A and B and SARS-CoV-2 (COVID-19) Ag panel - Upper respiratory specimOrdered By: Dr. Brown on 06-07-2022 SARS-CoV-2 (COVID-19) RNA LILIANE+probe Ql (Resp) [facility] Ketones Test strip Ql (U)Ord ered By: Dr. Brown on 06-07-2022 Ketones Ql (U) 15 mg/dl Negative [facility] Laboratory - Chemistry and C hemistry - challengeOrdered By: Dr. Brown on 06-07-2022 ALP [Catalytic activity/Vol] 78 U/L 45-117 [facility] ALT [Catalytic activity/Vol] 34 U/L 13-56 [facility] CO2 [Moles/Vol] 27.0 mmol/L 21.0-32.0 [facility] Globulin (S) [Mass/Vol] 3.6 g/dL 2.2-4.2 [facility] Lipase [Catalytic activity/Vol] 62 U/L 73-393 [facility] Urea nitrogen/Creatinine [Mass ratio] 18.3 mg/mg 10-20 [facility] Laboratory - Hematology and Cell countsOrdered By: Dr. Brown on 06-07-2022 Erythrocyte distribution width (RBC) [Entitic vol] 46.5 fL 35.1-43.9 [facility] Erythrocyte distribution width (RBC) [Ratio] 14.4 % 11.6-14.6 [facility] Immature granulocytes/100 WBC (Bld) 0.400 % 0.0-0.9 [facility] Comment on above: IG% - Immature Granu locytes (promyelocytes, myelocytes and metamyelocytes) > 1% indicates that a LEFT SHIFT is Present. MCH (RBC) [Entitic mass] 28.8 pg 27.0-32.0 [facility] Nucleated RBC/100 WBC (Bld) [Ratio] 0 % 0-5 [facility] MCHC Auto (RBC) [Mass/Vol]Or dered By: Dr. Brown on 06-07-2022 MCHC (RBC) [Mass/Vol] 32.9 g/dL 32-36 [facility] Mucus LM Ql (Urine sed)Order ed By: Dr. Brown on 06-07-2022 Mucus Ql (Urine sed) 0 SEEN /hpf [facility] Nitrite Test strip Ql (U)Ord ered By: Dr. Brown on 06-07-2022 Nitrite Ql (U) Negative Negative [facility] No Panel InformationOrdered By: Dr. Brown on 06-07-2022 Estimated Creatinine Clearance Calc 88.20 ml/min [facility] Estimated GFR (MDRD) Amer 107 mL/min >60 [facility] Comment on above: GFR Calc Estimated GFR (MDRD) Non-Af Amer 88 mL/min >60 [facility] Comment on above: Non- GFR Calc Platelets bldOrdered By: Dr. Brown on 06-07-2022 Platelets (Bld) [#/Vol] 438 10*3/uL 150-450 [facility] Protein Test strip Ql (U)Ord ered By: Dr. Brown on 06-07-2022 Protein Ql (U) 30 mg/dl Negative [facility] Serum or plasma albumin alix urement (mass/volume)Ordered By: Dr. Brown on 06-07-2022 Albumin [Mass/Vol] 4.0 g/dL 3.2-5.0 [facility] Serum or plasma albumin/glob ulin mass ratioOrdered By: Dr. Brown on 06-07-2022 Albumin/Globulin [Mass ratio] 1.1 {ratio} 0.9-2.4 [facility] Serum or plasma calcium alix urement (mass/volume)Ordered By: Dr. Brown on 06-07-2022 Calcium [Mass/Vol] 8.9 mg/dL 8.5-10.1 [facility] Serum or plasma creatinine m easurement (mass/volume)Ordered By: Dr. Brown on 06-07-2022 Creatinine [Mass/Vol] 0.82 mg/dL 0.55-1.02 [facility] Comment on above: The validity of the calculated GFR & GFRAA in patients over 70 years has not been determined. Clinical correlation is essential. Serum or plasma urea nitroge n measurement (mass/volume)Ordered By: Dr. Brown on 06-07-2022 Urea nitrogen [Mass/Vol] 15 mg/dL 7-18 [facility] Squamous epithelial cells de tection in urine sediment by light microscopyOrdered By: Dr. Brown on 06-07-2022 Epithelial cells.squamous LM Ql (Urine sed) 50-100 SEEN /hpf 5-10 [facility] Thin prep Papanicolaou smear with manual screeningOrdered By: Dr. Brown on 06-07-2022 Thin prep Papanicolaou smear with manual screening 16 U/L 15-37 [facility] Thin prep Papanicolaou smear with manual screening 6 5-15 [facility] Urine blood detectionOrdered By: Dr. Brwon on 06-07-2022 RBC Ql (U) Negative Negative [facility] RBC Ql (U) 0 SEEN /hpf 0-5 [facility] Urine clarityOrdered By: Dr. Brown on 06-07-2022 Clarity (U) Sl. Cloudy Clear [facility] Urine color determinationOrd ered By: Dr. Brown on 06-07-2022 Color (U) Yellow Yellow [facility] Urine glucose detectionOrder ed By: Dr. Brown on 06-07-2022 Glucose Ql (U) Normal mg/dl Normal [facility] Urine leukocyte esterase det ection by dipstickOrdered By: Dr. Brown on 06-07-2022 Leukocyte esterase Test strip Ql (U) 100 /ul Negative [facility] Urine pHOrdered By: Dr. Dexter davidson on 06-07-2022 pH (U) 7.0 [pH] 5.0 - 8.0 [facility] Urine sediment bacteria coun t by microscopy (number/high power field)Ordered By: Dr. Brown on 06-07-2022 Bacteria LM.HPF (Urine sed) [#/Area] 0 /[HPF] None Seen [facility] Urine specific gravity measu rementOrdered By: Dr. Brown on 06-07-2022 Specific gravity (U) [Rel density] 1.015 1.002-1.030 [facility] Urobilinogen Auto test strip Ql (U)Ordered By: Dr. Brown on 06-07-2022 Urobilinogen Ql (U) 1 mg/dl Normal [facility] HCG QUAL UR B/Oon 03-23-2022 status Negative neg - [facility] Quality Check Yes [facility] UA DIP, URINE (POC)on 2021 BILIRUBIN UA (POCT) Negative Negative [facility] CLARITY UA (POCT) Clear [facility] COLOR UA (POCT) Yellow [facility] GLUCOSE UA (POCT) Negative Negative mg/dL [facility] HEMOGLOBIN/BLOOD UA (POCT) Negative Negative [facility] KETONE UA (POCT) Negative Negative mg/dL [facility] LEUKOCYTES UA (POCT) Negative Negative [facility] NITRITE UA (POCT) Negative Negative [facility] PH UA (POCT) 7.0 4.5 - 8.0 [facility] Protein Ql (U) Negative Negative mg/dL [facility] SPECIFIC GRAVITY UA (POCT) 1.020 1.005 - 1.030 [facility] UROBILINOGEN UA (POCT) 0.2 E.U./dL Normal E.U./ dL [facility] HCG ( test) Ql (U)o n 09-05-2021 Preg Test, Ur Negative Normal Negative [facility] Comment on above: Performed By: #### 5 7019-2 #### [facility] ([facility] [address] [place] [address] N gonorrhoea DNA Ur Ql LILIANE+p robeon 09-05-2021 N. gonorrhoeae DNA LILIANE+probe Ql (U) N. gonorrhoeae, RNA Probe Status = F Negative Chlamydia, RNA Probe Status = F Negative Normal Negative [facility] Comment on above: Performed By: #### 6 566-4 #### [facility] [address] [place] [address] T. vaginalis Ag IA Ql (Genit al specimen)on 09-05-2021 Bacterial sialidase Ql (Unsp spec) Negative Normal Negative [facility] Comment on above: Performed By: #### 5 7019-2 #### [facility] ([facility] [address] [place] [address] Urinalysis dipstick W Reflex Culture panel (U)on 09-05-2021 Bacteria identified Cx Nom (U) Culture, Urine Status = F No growth Normal [facility] Comment on above: Performed By: #### 6 566-4 #### [facility] [address] [place] [address] SARS-CoV-2 RNA Resp Ql LILIANE+p robeon 06-17-2021 SARS-CoV-2 (COVID-19) RNA LILIANE+probe Ql (Resp) Not detected Normal Not Detected [facility] Comment on above: Performed By: #### 5 7019-2 #### [facility] ([facility] [address] [place] [address] CT ABDOMEN PELVIS WITH IV CO NTRAST ONLYon 06-06-2021 CT ABDOMEN PELVIS WITH IV CONTRAST ONLY EXAMINATION: CT ABDOMEN PELVIS WITH IV CONTRAST ONLY HISTORY: ORDERING SYSTEM PROVIDED HISTORY: abdominal pain + n/v/d, TECHNOLOGIST PROVIDED HISTORY: Illness/Other Reason for exam: abdominal pain + n/v/d Encounter Type: Initial Additional signs and symptoms: abdominal pain + n/v/d ORDERING SYSTEM PROVIDED DIAGNOSIS CODES: COMPARISON: None TECHNIQUE: CT examination of the abdomen and pelvis following the administration of intravenous contrast. Coronal and sagittal reformations were performed. Dose reduction techniques were achieved by using automated exposure control and/or adjustment of mA and/or kV according to patient size and/or use of iterative reconstruction technique. CONTRAST: IOPAMIDOL 76 % INTRAVENOUS SOLUTION - 75 mL, FINDINGS: Small amount of fluid seen within the stomach. Small and large bowel loops are of normal caliber, fewer fluid-filled or with air-fluid levels but more majority are decompressed. There is a large amount of stool in the right colon to the proximal transverse colon. No focal small or large bowel inflammation. No significant diverticulosis. Negative for appendicitis. Liver, spleen, gallbladder, and pancreas are normal in appearance. No radiopaque gallstones or biliary ductal dilatation. Adrenal glands are normal. Kidneys enhance symmetrically without perinephric stranding or hydronephrosis. No renal lesion. Bladder is normal in appearance. There are ovarian cysts bilaterally. Dominant cyst is seen in the left ovary at 3.1 cm. Uterus identified. No free fluid, mesenteric inflammation, abscess, or free air. Abdominal aorta is normal caliber. Hepatic veins and portal veins are patent. No abdominal or pelvic lymphadenopathy. Mild endplate Schmorl's nodes noted in the lower thoracic spine. No acute bony abnormality. No listhesis. Limited imaging of lower thorax demonstrates small area of right middle lobe atelectasis. Both visualized lower lobes are clear. Heart size within normal limits. IMPRESSION: 1. Negative for bowel obstruction or focal bowel inflammation, with large stool burden in the right colon to the transverse colon. No significant diverticular disease. 2. Negative for appendicitis. 3. Normal gallbladder and pancreas. No radiopaque gallstones or biliary ductal dilatation. 4. Normal kidneys bilaterally without obstructive or inflammatory changes. 5. Bilateral ovarian cysts, dominant cyst is on the left at 3.1 cm. 6. No free fluid, mesenteric inflammation, or acute inflammatory process within the abdomen or pelvis by imaging at this time. Recommend clinical follow-up for symptoms, repeat imaging as clinically indicated. 7. Right middle lobe atelectasis, with visualized lower lungs otherwise clear. Workstation ID: [id number] Dictated by: RAYSHAWN العراقي on ThuJun 06, 2021 2:24:56 PM EST Transcribed by: RAYSHAWN العراقي on ThuJun 06, 2021 2:24:56 PM EST Finalized by: RAYSHAWN العراقي on ThuJun 06, 2021 2:24:56 PM EST Normal [facility] Comment on above: Order Comment: Injur y/Trauma or Illness?:Illness/Other How long have you had these symptoms (acute/chronic)?:Acute Reason for exam?:abdominal pain + n/v/d Type of Exam?:Initial Additional signs and symptoms?:abdominal pain + n/v/d CT ABDOMEN PELVIS W CONTRAST on 06-05-2021 CT ABDOMEN PELVIS W CONTRAST EXAM: CT ABDOMEN PELVIS W CONTRAST HISTORY: Abdominal pain, acute, nonlocalized TECHNIQUE: CT of the abdomen and pelvis was performed after the intravenous administration of 100 mL of contrast. Reformatted images in the coronal and sagittal planes were performed. Oral contrast was not given. Dose reduction techniques were utilized. COMPARISON: Ultrasound dated 06/05/2021. CT dated 06/04/2021. FINDINGS: LUNG BASES: No focal consolidation or pleural effusion. There is right middle lobe atelectasis. HEPATOBILIARY: No calcified gallstone, intrahepatic or extrahepatic biliary ductal dilatation. SPLEEN, PANCREAS, ADRENAL GLANDS: No significant abnormality. KIDNEYS, URETER, BLADDER: The kidneys demonstrate symmetric enhancement. No hydroureteronephrosis. The urinary bladder is partially distended. GASTROINTESTINAL: Moderate colonic stool burden. There are no dilated loops of small or large bowel. The appendix is unremarkable. REPRODUCTIVE: The uterus is anteverted. 3.0 x 2.7 cm left ovarian cyst is better evaluated on recent ultrasound. RETROPERITONEUM, PERITONEUM, LYMPH NODES: No enlarged retroperitoneal or mesenteric lymph node. VESSELS: The abdominal aorta is nonaneurysmal. BONES, SOFT TISSUES: Vertebral body heights are preserved. IMPRESSION: 1. No acute abnormality in the abdomen or pelvis. Normal appendix. 2. Left ovarian cyst, better characterized on recent ultrasound. -------- FINAL REPORT -------- Dictated By: Tracy Whiteside Dictated Date: 06/05/2021 10:52 Assigned Physician: Tracy Whiteside Reviewed and Electronically Signed By: Tracy Whiteside Signed Date: 06/05/2021 10:56 Workstation ID: [id number] Transcribed By: Self Edit Transcribed Date: 06/05/2021 10:52 Normal [facility] FLUAV+FLUBV Ag Spec Qlon FLUAV+FLUBV Ag Ql (Unsp spec) Influenza A AG Status = F Negative Influenza B AG Status = F Negative Normal Negative [facility] Comment on above: Performed By: #### 5 7019-2 #### [facility] ([facility] [address] [place] [address] Hemogram and platelets WO di fferential panel (Bld)on 06-05-2021 Basophils (Bld) [#/Vol] 0.10 10*3/uL Normal 0.00-0.20 [facility] Comment on above: Performed By: #### 2 4317-0 #### [facility] [address] [place] [address] Basophils/100 WBC (Bld) 0.7 % Normal 0.0-2.0 [facility] Comment on above: Performed By: #### 2 4317-0 #### [facility] [address] [place] [address] Eosinophils (Bld) [#/Vol] 0.30 10*3/uL Normal 0.00-0.70 [facility] Comment on above: Performed By: #### 2 4317-0 #### [facility] [address] [place] [address] Eosinophils/100 WBC (Bld) 2.8 % Normal 0.0-7.0 [facility] Comment on above: Performed By: #### 2 4317-0 #### [facility] [address] [place] [address] Erythrocyte distribution width (RBC) [Ratio] 13.5 % Normal 11.0-14.8 [facility] Comment on above: Performed By: #### 2 4317-0 #### [facility] [address] [place] [address] Hematocrit (Bld) [Volume fraction] 38.0 % Normal 35.0-45.0 [facility] Comment on above: Performed By: #### 2 4317-0 #### [facility] [address] [place] [address] Hemoglobin (Bld) [Mass/Vol] 13.6 g/dL Normal 12.0-16.0 [facility] Comment on above: Performed By: #### 2 4317-0 #### [facility] [address] [place] [address] Lymphocytes (Bld) [#/Vol] 1.90 10*3/uL Normal 1.00-4.80 [facility] Comment on above: Performed By: #### 2 4317-0 #### [facility] [address] [place] [address] Lymphocytes/100 WBC (Bld) 20.3 % Low 22.0-44.0 [facility] Comment on above: Performed By: #### 2 4317-0 #### [facility] [address] [place] [address] MCH 31.0 pcg Normal 27.0-34.0 [facility] Comment on above: Performed By: #### 2 4317-0 #### [facility] [address] [place] [address] MCHC (RBC) [Mass/Vol] 35.7 g/dL Normal 32.0-36.0 [facility] Comment on above: Performed By: #### 2 7-0 #### [facility] [address] [place] [address] MCV (RBC) [Entitic vol] 86.7 fL Normal 80.0-97.0 [facility] Comment on above: Performed By: #### 2 7-0 #### [facility] [address] [place] [address] Monocytes (Bld) [#/Vol] 0.70 10*3/uL Normal 0.00-0.90 [facility] Comment on above: Performed By: #### 2 7-0 #### [facility] [address] [place] [address] Monocytes/100 WBC (Bld) 7.3 % Normal 0.0-12.0 [facility] Comment on above: Performed By: #### 2 7-0 #### [facility] [address] [place] [address] Neutrophils Absolute 6.30 K/mcL Normal 1.80-7.70 [facility] Comment on above: Performed By: #### 2 4317-0 #### [facility] [address] [place] [address] Neutrophils/100 WBC (Bld) 68.9 % Normal 40.0-70.0 [facility] Comment on above: Performed By: #### 2 4317-0 #### [facility] [address] [place] [address] Platelet mean volume (Bld) [Entitic vol] 8.3 fL Normal 6.2-12.1 [facility] Comment on above: Performed By: #### 2 4317-0 #### [facility] [address] [place] [address] Platelets (Bld) [#/Vol] 293 10*3/uL Normal 142-424 [facility] Comment on above: Performed By: #### 2 4317-0 #### [facility] [address] [place] [address] RBC (Bld) [#/Vol] 4.38 10*6/uL Normal 3.80-5.10 [facility] Comment on above: Performed By: #### 2 4317-0 #### [facility] [address] [place] [address] WBC (Bld) [#/Vol] 9.1 10*3/uL Normal 4.6-10.2 [facility] Comment on above: Performed By: #### 2 4317-0 #### [facility] [address] [place] [address] Magnesium [Mass/Vol]on 06-05 hCG Qual Negative Normal Negative [facility] Comment on above: Performed By: #### 1 9123-9 #### [facility] [address] [place] [address] SARS-CoV-2 RNA Resp Ql LILIANE+p galindo 06-05-2021 SARS-CoV-2 (COVID-19) RNA LILIANE+probe Ql (Resp) Not detected Normal Not Detected [facility] Comment on above: Performed By: #### 5 7019-2 #### [facility] ([facility] [address] [place] [address] US DUPLEX ABDOMEN/PELVIS/RET RO COMPLETEon 06-05-2021 US DUPLEX ABDOMEN/PELVIS/RETRO COMPLETE EXAMINATION TYPE: US PELVIS NON OB COMPLETE, US PELVIS TRANSVAGINAL NON OB, US DUPLEX ABDOMEN/PELVIS/RETRO COMPLETE DATE OF EXAM : 06/05/2021 9:43 AM HISTORY: Pelvic pain x1 month, nausea and vomiting COMPARISON: CT 06/04/2021 FINDINGS: Transabdominal and endovaginal pelvic ultrasound performed, with duplex Doppler technique and spectral waveform analysis. Uterus is anteverted, measuring 9.4 x 5.1 x 4.3 cm. No uterine mass is visualized. Endometrium measures 0.8 cm in thickness. RIGHT ovary measures 2.8 x 1.8 x 2.1 cm. LEFT ovary measures 4.3 x 3.0 x 3.1 cm. Color and pulsed Doppler flow is evident within both ovaries. Small ovarian follicles bilaterally. Lobulated hypoechoic structure with increased through transmission in the LEFT ovary measuring 2.8 x 2.8 x 2.7 cm, likely a small ovarian cyst. Urinary bladder is partially distended on transabdominal imaging. Trace amount of free fluid in the pelvic cul-de-sac. IMPRESSION: 1. No sonographic evidence of active ovarian torsion. 2. Probable small 2.8 cm cyst within the LEFT ovary. 3. Trace amount free fluid in the pelvic cul-de-sac, nonspecific, but may be physiologic. 4. No uterine mass is visualized. 5. No endometrial thickening is demonstrated. -------- FINAL REPORT -------- Dictated By: Kings Roe Dictated Date: 06/05/2021 10:19 Assigned Physician: Kings Roe Reviewed and Electronically Signed By: Kings Roe Signed Date: 06/05/2021 10:23 Workstation ID: [id number] Transcribed By: Self Edit Transcribed Date: 06/05/2021 10:20 Normal [facility] US PELVIS NON OB COMPLETEon 06-05-2021 US PELVIS NON OB COMPLETE EXAMINATION TYPE: US PELVIS NON OB COMPLETE, US PELVIS TRANSVAGINAL NON OB, US DUPLEX ABDOMEN/PELVIS/RETRO COMPLETE DATE OF EXAM : 06/05/2021 9:43 AM HISTORY: Pelvic pain x1 month, nausea and vomiting COMPARISON: CT 06/04/2021 FINDINGS: Transabdominal and endovaginal pelvic ultrasound performed, with duplex Doppler technique and spectral waveform analysis. Uterus is anteverted, measuring 9.4 x 5.1 x 4.3 cm. No uterine mass is visualized. Endometrium measures 0.8 cm in thickness. RIGHT ovary measures 2.8 x 1.8 x 2.1 cm. LEFT ovary measures 4.3 x 3.0 x 3.1 cm. Color and pulsed Doppler flow is evident within both ovaries. Small ovarian follicles bilaterally. Lobulated hypoechoic structure with increased through transmission in the LEFT ovary measuring 2.8 x 2.8 x 2.7 cm, likely a small ovarian cyst. Urinary bladder is partially distended on transabdominal imaging. Trace amount of free fluid in the pelvic cul-de-sac. IMPRESSION: 1. No sonographic evidence of active ovarian torsion. 2. Probable small 2.8 cm cyst within the LEFT ovary. 3. Trace amount free fluid in the pelvic cul-de-sac, nonspecific, but may be physiologic. 4. No uterine mass is visualized. 5. No endometrial thickening is demonstrated. -------- FINAL REPORT -------- Dictated By: Kings Roe Dictated Date: 06/05/2021 10:19 Assigned Physician: Kings Roe Reviewed and Electronically Signed By: Kings Roe Signed Date: 06/05/2021 10:23 Workstation ID: [id number] Transcribed By: Self Edit Transcribed Date: 06/05/2021 10:20 Normal [facility] US PELVIS TRANSVAGINAL NON O Bon 06-05-2021 US PELVIS TRANSVAGINAL NON OB EXAMINATION TYPE: US PELVIS NON OB COMPLETE, US PELVIS TRANSVAGINAL NON OB, US DUPLEX ABDOMEN/PELVIS/RETRO COMPLETE DATE OF EXAM : 06/05/2021 9:43 AM HISTORY: Pelvic pain x1 month, nausea and vomiting COMPARISON: CT 06/04/2021 FINDINGS: Transabdominal and endovaginal pelvic ultrasound performed, with duplex Doppler technique and spectral waveform analysis. Uterus is anteverted, measuring 9.4 x 5.1 x 4.3 cm. No uterine mass is visualized. Endometrium measures 0.8 cm in thickness. RIGHT ovary measures 2.8 x 1.8 x 2.1 cm. LEFT ovary measures 4.3 x 3.0 x 3.1 cm. Color and pulsed Doppler flow is evident within both ovaries. Small ovarian follicles bilaterally. Lobulated hypoechoic structure with increased through transmission in the LEFT ovary measuring 2.8 x 2.8 x 2.7 cm, likely a small ovarian cyst. Urinary bladder is partially distended on transabdominal imaging. Trace amount of free fluid in the pelvic cul-de-sac. IMPRESSION: 1. No sonographic evidence of active ovarian torsion. 2. Probable small 2.8 cm cyst within the LEFT ovary. 3. Trace amount free fluid in the pelvic cul-de-sac, nonspecific, but may be physiologic. 4. No uterine mass is visualized. 5. No endometrial thickening is demonstrated. -------- FINAL REPORT -------- Dictated By: Kings Roe Dictated Date: 06/05/2021 10:19 Assigned Physician: Kigns Roe Reviewed and Electronically Signed By: Kings Roe Signed Date: 06/05/2021 10:23 Workstation ID: [id number] Transcribed By: Self Edit Transcribed Date: 06/05/2021 10:20 Normal [facility] Urinalysis dipstick W Reflex Culture panel (U)on 06-05-2021 Bilirubin, Urine Negative Normal Negative [facility] Comment on above: Performed By: #### 5 7019-2 #### [facility] ([facility]) [facility] [address] [place] [address] Blood, Urine Negative Normal Negative [facility] Comment on above: Performed By: #### 5 7019-2 #### [facility] ([facility]) [facility] [address] [place] [address] Clarity (U) Clear Normal Clear [facility] Comment on above: Performed By: #### 5 7019-2 #### [facility] ([facility]) [facility] [address] [place] [address] Color (U) Straw Abnormal Yellow [facility] Comment on above: Performed By: #### 5 7019-2 #### [facility] [place] [facility] [address] [place] [address] Glucose Ql (U) Normal Normal Normal [facility] Comment on above: Performed By: #### 5 7019-2 #### [facility] [place] [facility] [address] [place] [address] Ketones Ql (U) Negative Normal Negative [facility] Comment on above: Performed By: #### 5 7019-2 #### [facility] [place] [facility] [address] [place] [address] Leukocytes, Urine Negative Normal Negative [facility] Comment on above: Performed By: #### 5 7019-2 #### [facility] [place] [facility] [address] [place] [address] Nitrite, Urine Negative Normal Negative [facility] Comment on above: Performed By: #### 5 7019-2 #### [facility] [place] [facility] [address] [place] [address] pH (U) 7.0 [pH] Normal 5.0-8.0 [facility] Comment on above: Performed By: #### 5 7019-2 #### [facility] [place] [facility] [address] [place] [address] Protein, Urine Negative Normal Negative [facility] Comment on above: Performed By: #### 5 7019-2 #### [facility] [place] [facility] [address] [place] [address] Specific [place] Urine 1.035 High 1.002-1.030 [facility] on above: Performed By: #### 5 7019-2 #### [facility] [place] [facility] [address] [place] [address] Urobilinogen, Urine Normal Normal Normal [facility] Comment on above: Performed By: #### 5 7019-2 #### [facility] ([facility]) [facility] [address] [place] [address] CT ABDOMEN PELVIS WO CONTRAS Ton 06-04-2021 CT ABDOMEN PELVIS WO CONTRAST EXAMINATION TYPE: CT ABDOMEN PELVIS WO CONTRAST DATE OF EXAM: 06/04/2021 5:12 PM HISTORY: Abdominal pain, acute, nonlocalized, COMPARISON: NONE FINDINGS: The liver, spleen, pancreas, gallbladder, adrenal glands and kidneys appear grossly normal. No urinary tract stones are identified. Normal appendix. No evidence of diverticulitis is seen. The uterus and adnexal regions appear grossly normal. No adenopathy or free fluid is identified. Grossly normal bladder IMPRESSION: No acute findings -------- FINAL REPORT -------- Dictated By: Isa Shah Dictated Date: 06/04/2021 17:38 Assigned Physician: Isa Shah Reviewed and Electronically Signed By: Isa Shah Signed Date: 06/04/2021 17:42 Workstation ID: [id number] Transcribed By: Self Edit Transcribed Date: 06/04/2021 17:38 Normal [facility] Comprehensive metabolic 2000 panelon 06-04-2021 hCG Qual Negative Normal Negative [facility] Comment on above: Performed By: #### 2 4323-8 #### [facility] [address] [place] [address] Hemogram and platelets WO di fferential panel (Bld)on 06-04-2021 Basophils (Bld) [#/Vol] 0.10 10*3/uL Normal 0.00-0.20 [facility] Comment on above: Performed By: #### 2 4317-0 #### [facility] [address] [place] [address] Basophils/100 WBC (Bld) 0.9 % Normal 0.0-2.0 [facility] Comment on above: Performed By: #### 2 4317-0 #### [facility] [address] [place] [address] Eosinophils (Bld) [#/Vol] 0.30 10*3/uL Normal 0.00-0.70 [facility] Comment on above: Performed By: #### 2 4317-0 #### [facility] [address] [place] [address] Eosinophils/100 WBC (Bld) 3.2 % Normal 0.0-7.0 [facility] Comment on above: Performed By: #### 2 4317-0 #### [facility] [address] [place] [address] Erythrocyte distribution width (RBC) [Ratio] 13.9 % Normal 11.0-14.8 [facility] Comment on above: Performed By: #### 2 4317-0 #### [facility] [address] [place] [address] Hematocrit (Bld) [Volume fraction] 39.6 % Normal 35.0-45.0 [facility] Comment on above: Performed By: #### 2 4317-0 #### [facility] [address] [place] [address] Hemoglobin (Bld) [Mass/Vol] 13.4 g/dL Normal 12.0-16.0 [facility] Comment on above: Performed By: #### 2 4317-0 #### [facility] [address] [place] [address] Lymphocytes (Bld) [#/Vol] 2.70 10*3/uL Normal 1.00-4.80 [facility] Comment on above: Performed By: #### 2 4317-0 #### [facility] [address] [place] [address] Lymphocytes/100 WBC (Bld) 25.9 % Normal 22.0-44.0 [facility] Comment on above: Performed By: #### 2 4317-0 #### [facility] [address] [place] [address] MCH 28.9 pcg Normal 27.0-34.0 [facility] Comment on above: Performed By: #### 2 7-0 #### [facility] [address] [place] [address] MCHC (RBC) [Mass/Vol] 33.8 g/dL Normal 32.0-36.0 [facility] Comment on above: Performed By: #### 2 4317-0 #### [facility] [address] [place] [address] MCV (RBC) [Entitic vol] 85.6 fL Normal 80.0-97.0 [facility] Comment on above: Performed By: #### 2 4317-0 #### [facility] [address] [place] [address] Monocytes (Bld) [#/Vol] 0.80 10*3/uL Normal 0.00-0.90 [facility] Comment on above: Performed By: #### 2 4317-0 #### [facility] [address] [place] [address] Monocytes/100 WBC (Bld) 7.4 % Normal 0.0-12.0 [facility] Comment on above: Performed By: #### 2 4317-0 #### [facility] [address] [place] [address] Neutrophils Absolute 6.60 K/mcL Normal 1.80-7.70 [facility] Comment on above: Performed By: #### 2 4317-0 #### [facility] [address] [place] [address] Neutrophils/100 WBC (Bld) 62.6 % Normal 40.0-70.0 [facility] Comment on above: Performed By: #### 2 4317-0 #### [facility] [address] [place] [address] Platelet mean volume (Bld) [Entitic vol] 8.6 fL Normal 6.2-12.1 [facility] Comment on above: Performed By: #### 2 4317-0 #### [facility] [address] [place] [address] Platelets (Bld) [#/Vol] 305 10*3/uL Normal 142-424 [facility] Comment on above: Performed By: #### 2 4317-0 #### [facility] [address] [place] [address] RBC (Bld) [#/Vol] 4.62 10*6/uL Normal 3.80-5.10 [facility] Comment on above: Performed By: #### 2 4317-0 #### [facility] [address] [place] [address] WBC (Bld) [#/Vol] 10.6 10*3/uL High 4.6-10.2 [facility] Comment on above: Performed By: #### 2 4317-0 #### [facility] [address] [place] [address] Nuclear IgG IA Ql (S)on 05-22 Bilirubin, Urine Negative Normal Negative [facility] Comment on above: Performed By: #### 2 9950-3 #### [facility] [address] [place] [address] Blood, Urine Negative Normal Negative [facility] Comment on above: Performed By: #### 2 9950-3 #### [facility] [address] [place] [address] Clarity (U) Clear Normal Clear [facility] Comment on above: Performed By: #### 2 9950-3 #### [facility] [address] [place] [address] Color (U) Straw Abnormal Yellow [facility] Comment on above: Performed By: #### 2 9950-3 #### [facility] [address] [place] [address] Glucose Ql (U) Normal Normal Normal [facility] Comment on above: Performed By: #### 2 9950-3 #### [facility] [address] [place] [address] Ketones Ql (U) Negative Normal Negative [facility] Comment on above: Performed By: #### 2 9950-3 #### [facility] [address] [place] [address] Leukocytes, Urine Negative Normal Negative [facility] Comment on above: Performed By: #### 2 9950-3 #### [facility] [address] [place] [address] Nitrite, Urine Negative Normal Negative [facility] Comment on above: Performed By: #### 2 9950-3 #### [facility] [address] [place] [address] pH (U) 7.0 [pH] Normal 5.0-8.0 [facility] Comment on above: Performed By: #### 2 9950-3 #### [facility] [address] [place] [address] Protein, Urine Negative Normal Negative [facility] Comment on above: Performed By: #### 2 9950-3 #### [facility] [address] [place] [address] Specific [place] Urine 1.005 Normal 1.002-1.030 [facility] on above: Performed By: #### 2 9950-3 #### [facility] [address] [place] [address] Urobilinogen, Urine Normal Normal Normal [facility] Comment on above: Performed By: #### 2 9950-3 #### [facility] [address] [place] [address] HCG ( test) Ql (U)o n 05-30-2021 Preg Test, Ur Negative Normal Negative [facility] Comment on above: Performed By: #### 2 106-3 #### [facility] [address] [place] [address] N gonorrhoea DNA Ur Ql LILIANE+p robeon 05-30-2021 N. gonorrhoeae DNA LILIANE+probe Ql (U) N. gonorrhoeae, RNA Probe Status = F Negative Chlamydia, RNA Probe Status = F Negative Normal Negative [facility] Comment on above: Performed By: #### 2 1416-3 #### [facility] ([facility] [address] [place] [address] T. vaginalis Ag IA Ql (Genit al specimen)on 05-30-2021 Bacterial sialidase Ql (Unsp spec) Positive Invalid Interpretation Code Negative [facility] Comment on above: Performed By: #### 6 566-4 #### [facility] [address] [place] [address] Urinalysis dipstick W Reflex Culture panel (U)on 05-30-2021 Bacteria identified Cx Nom (U) Culture, Urine Status = F Mixed angel, no uropathogens present. Suggest repeat specimen, if clinically indicated. Normal [facility] Comment on above: Performed By: #### 5 7019-2 #### [facility] [address] [place] [address] .Auto Diffon 02-12-2020 Ammonia (P) [Mass/Vol] 0.60 10 3/mcL Normal 0.09-1.40 [facility] ([place]) Comment on above: Performed By: #### A DIFF, ERDS, GFR, CBC, ANEU, CMP #### [address] [address] Basophils (Bld) [#/Vol] 0.10 10 3/mcL Normal 0.00-0.27 [facility] ([place]) Comment on above: Performed By: #### A DIFF, ERDS, GFR, CBC, ANEU, CMP #### [address] [address] Basophils/100 WBC (Bld) 0.7 % Normal 0.0-2.5 [facility] ([place]) Comment on above: Performed By: #### A DIFF, ERDS, GFR, CBC, ANEU, CMP #### [address] [address] Eosinophils (Bld) [#/Vol] 0.40 10 3/mcL Normal 0.00-0.65 [facility] ([place]) Comment on above: Performed By: #### A DIFF, ERDS, GFR, CBC, ANEU, CMP #### [address] [address] Eosinophils/100 WBC (Bld) 3.1 % Normal 0.0-6.0 [facility] ([place]) Comment on above: Performed By: #### A DIFF, ERDS, GFR, CBC, ANEU, CMP #### [address] [address] Lymphocytes (Bld) [#/Vol] 3.00 10 3/mcL Normal 0.90-4.32 [facility] ([place]) Comment on above: Performed By: #### A DIFF, ERDS, GFR, CBC, ANEU, CMP #### [address] [address] Lymphocytes/100 WBC (Bld) 26.4 % Normal 20.0-40.0 [facility] ([place]) Comment on above: Performed By: #### A DIFF, ERDS, GFR, CBC, ANEU, CMP #### [address] [address] Monocytes/100 WBC (Bld) 5.5 % Normal 2.0-13.0 [facility] ([place]) Comment on above: Performed By: #### A DIFF, ERDS, GFR, CBC, ANEU, CMP #### [address] [address] Neutrophils/100 WBC (Bld) 64.3 % Normal 50.0-75.0 [facility] ([place]) Comment on above: Performed By: #### A DIFF, ERDS, GFR, CBC, ANEU, CMP #### [address] [address] .GFRon 02-12-2020 GFR Non- >60 Normal [facility] ([place]) Comment on above: Result Comment: GFR Population mean for , Non- Americans Ages 20-29 = 116 mL/min/1.73 sq.m. Ages 30-39 = 107 mL/min/1.73 sq.m. Ages 40-49 = 99 mL/min/1.73 sq.m. Ages 50-59 = 93 mL/min/1.73 sq.m. Ages 60-69 = 85 mL/min/1.73 sq.m. Ages 70+ = 75 mL/min/1.73 sq.m. Chronic Kidney Disease: Less than 60 mL/min/1.73 square meters End Stage Renal Disease: Less than 15 mL/min/1.73 square meters Performed By: #### A DIFF, ERDS, GFR, CBC, ANEU, CMP #### [address] [address] GFR >60 Normal [facility] ([place]) Comment on above: Result Comment: GFR Population mean for , Non- Americans Ages 20-29 = 116 mL/min/1.73 sq.m. Ages 30-39 = 107 mL/min/1.73 sq.m. Ages 40-49 = 99 mL/min/1.73 sq.m. Ages 50-59 = 93 mL/min/1.73 sq.m. Ages 60-69 = 85 mL/min/1.73 sq.m. Ages 70+ = 75 mL/min/1.73 sq.m. Chronic Kidney Disease: Less than 60 mL/min/1.73 square meters End Stage Renal Disease: Less than 15 mL/min/1.73 square meters Performed By: #### A DIFF, ERDS, GFR, CBC, ANEU, CMP #### [place] [address] .NEUABSon 02-12-2020 Neutrophils (Bld) [#/Vol] 7.40 10 3/mcL Normal 2.25-8.10 [facility] ([place]) Comment on above: Performed By: #### A DIFF, ERDS, GFR, CBC, ANEU, CMP #### [place] [address] CBCon 02-12-2020 Erythrocyte distribution width (RBC) [Ratio] 15.8 % High 11.5-15.5 [facility] ([place]) Comment on above: Performed By: #### A DIFF, ERDS, GFR, CBC, ANEU, CMP #### [place] [address] Hematocrit (Bld) [Volume fraction] 38.3 % Normal 34.0-46.0 [facility] ([place]) Comment on above: Performed By: #### A DIFF, ERDS, GFR, CBC, ANEU, CMP #### [place] [address] Hemoglobin (Bld) [Mass/Vol] 12.7 G/dL Normal 12.0-16.0 [facility] ([place]) Comment on above: Performed By: #### A DIFF, ERDS, GFR, CBC, ANEU, CMP #### [address] [address] MCH (RBC) [Entitic mass] 28.4 pg Normal 27.0-33.0 [facility] ([place]) Comment on above: Performed By: #### A DIFF, ERDS, GFR, CBC, ANEU, CMP #### [place] [id number] MCHC (RBC) [Mass/Vol] 33.3 G/dL Normal 32.0-36.0 [facility] ([place]) Comment on above: Performed By: #### A DIFF, ERDS, GFR, CBC, ANEU, CMP #### [place] [id number] MCV (RBC) [Entitic vol] 85.4 fL Normal 80.0-99.0 [facility] ([place]) Comment on above: Performed By: #### A DIFF, ERDS, GFR, CBC, ANEU, CMP #### [place] [id number] Platelet mean volume (Bld) [Entitic vol] 8.3 fL Normal 6.6-10.5 [facility] ([place]) Comment on above: Performed By: #### A DIFF, ERDS, GFR, CBC, ANEU, CMP #### [place] [id number] Platelets (Bld) [#/Vol] 319 10 3/mcL Normal 150-450 [facility] ([place]) Comment on above: Performed By: #### A DIFF, ERDS, GFR, CBC, ANEU, CMP #### [place] [id number] RBC (Bld) [#/Vol] 4.48 10 6/mcL Normal 4.10-5.30 [facility] ([place]) Comment on above: Performed By: #### A DIFF, ERDS, GFR, CBC, ANEU, CMP #### [place] [id number] WBC (Bld) [#/Vol] 11.60 10 3/mcL High 4.50-10.80 [facility] ([place]) Comment on above: Performed By: #### A DIFF, ERDS, GFR, CBC, ANEU, CMP #### [address] [address] CMPon 02-12-2020 Albumin [Mass/Vol] 3.6 G/dL Normal 3.2-4.8 [facility] ([place]) Comment on above: Performed By: #### A DIFF, ERDS, GFR, CBC, ANEU, CMP #### [address] [address] Albumin/Globulin [Mass ratio] 1.1 {ratio} Normal 0.9-1.6 [facility] ([place]) Comment on above: Performed By: #### A DIFF, ERDS, GFR, CBC, ANEU, CMP #### [place] [address] ALP [Catalytic activity/Vol] 82 U/L Normal 38-126 [facility] ([place]) Comment on above: Performed By: #### A DIFF, ERDS, GFR, CBC, ANEU, CMP #### [address] [address] ALT [Catalytic activity/Vol] 28 U/L Normal 10-49 [facility] ([place]) Comment on above: Performed By: #### A DIFF, ERDS, GFR, CBC, ANEU, CMP #### [place] [id number] AST [Catalytic activity/Vol] 15 U/L Normal 8-34 [facility] ([place]) Comment on above: Performed By: #### A DIFF, ERDS, GFR, CBC, ANEU, CMP #### [address] [address] Bili Total 0.2 mg/dL Normal 0.2-1.2 [facility] ([place]) Comment on above: Result Comment: Use of this assay is not recommended for patients undergoing treatment with eltrombopag due to the potential for falsely elevated results. Performed By: #### A DIFF, ERDS, GFR, CBC, ANEU, CMP #### [address] [address] Calcium [Mass/Vol] 8.4 mg/dL Normal 8.4-10.1 [facility] ([place]) Comment on above: Result Comment: No te - New Reference Range in effect 20 Performed By: #### A DIFF, ERDS, GFR, CBC, ANEU, CMP #### [place] [id number] Chloride [Moles/Vol] 109 mmol/L Normal 98-110 [facility] ([place]) Comment on above: Performed By: #### A DIFF, ERDS, GFR, CBC, ANEU, CMP #### [place] [id number] CO2 [Moles/Vol] 26 mmol/L Normal 22-32 [facility] ([place]) Comment on above: Performed By: #### A DIFF, ERDS, GFR, CBC, ANEU, CMP #### [place] [address] Creatinine [Mass/Vol] 0.77 mg/dL Normal 0.50-1.20 [facility] ([place]) Comment on above: Performed By: #### A DIFF, ERDS, GFR, CBC, ANEU, CMP #### [place] [address] Electrolyte Balance 6.0 mEq/L Normal 4.0-15.0 [facility] ([place]) Comment on above: Performed By: #### A DIFF, ERDS, GFR, CBC, ANEU, CMP #### [place] [id number] Globulin (S) [Mass/Vol] 3.3 G/dL Normal 1.5-3.8 [facility] ([place]) Comment on above: Performed By: #### A DIFF, ERDS, GFR, CBC, ANEU, CMP #### [place] [id number] Glucose [Mass/Vol] 73 mg/dL Normal 70-110 [facility] ([place]) Comment on above: Performed By: #### A DIFF, ERDS, GFR, CBC, ANEU, CMP #### [address] [address] Potassium [Moles/Vol] 3.6 mmol/L Normal 3.5-5.0 [facility] ([place]) Comment on above: Performed By: #### A DIFF, ERDS, GFR, CBC, ANEU, CMP #### [address] [address] Protein [Mass/Vol] 6.9 G/dL Normal 6.0-8.5 [facility] ([place]) Comment on above: Result Comment: No te - New Reference Range in effect 20 Performed By: #### A DIFF, ERDS, GFR, CBC, ANEU, CMP #### [address] [address] Sodium [Moles/Vol] 141 mmol/L Normal 136-145 [facility] ([place]) Comment on above: Performed By: #### A DIFF, ERDS, GFR, CBC, ANEU, CMP #### [address] [address] Urea nitrogen [Mass/Vol] 16.0 mg/dL Normal 8.0-22.0 [facility] ([place]) Comment on above: Performed By: #### A DIFF, ERDS, GFR, CBC, ANEU, CMP #### [address] [address] Urea nitrogen/Creatinine [Mass ratio] 20.8 ratio Normal 10.0-22.0 [facility] ([place]) Comment on above: Performed By: #### A DIFF, ERDS, GFR, CBC, ANEU, CMP #### [address] [address] ERDSon 02-12-2020 Acetaminophen [Mass/Vol] <2.0 Low 10.0-20.0 [facility] ([place]) Comment on above: Performed By: #### A DIFF, ERDS, GFR, CBC, ANEU, CMP #### [address] [address] ER Drug Screen (s) Negative Normal [facility] ([place]) Comment on above: Performed By: #### A DIFF, ERDS, GFR, CBC, ANEU, CMP #### [place] [address] ER Drug Screen Interp Serum shows no evidence of drugs routinely screened [facility] ([place]) Comment on above: Performed By: #### A DIFF, ERDS, GFR, CBC, ANEU, CMP #### [place] [address] ER Serum Drugs Screened: See Below Normal [facility] ([place]) Comment on above: Result Comment: This drug screen is a presumptive screening only. No confirmation will be performed unless requested. Drugs included in the ER serum drug screen are: Threshold Ethanol 10.0 mg/dL Salicylate 2.0 mg/dL Acetaminophen 2.0 mcg/mL Tricyclic Antidepressants 300 ng/mL Testing has been performed FOR MEDICAL PURPOSES ONLY. Performed By: #### A DIFF, ERDS, GFR, CBC, ANEU, CMP #### [place] [address] Ethanol Level <10.0 Normal [facility] ([place]) Comment on above: Performed By: #### A DIFF, ERDS, GFR, CBC, ANEU, CMP #### [place] [address] Salicylate Lvl (ds) <3.0 Low 10.0-25.0 [facility] ([place]) Comment on above: Performed By: #### A DIFF, ERDS, GFR, CBC, ANEU, CMP #### [place] [address] TCA (s) Negative Normal [facility] ([place]) Comment on above: Performed By: #### A DIFF, ERDS, GFR, CBC, ANEU, CMP #### [place] [address] U ERDSon 02-12-2020 ER U Drug Screen Positive Abnormal [facility] ([place]) Comment on above: Performed By: #### U ERDS #### [place] [address] ER U Drug Screen Interp In the urine, the following drug(s) or drug class(es) were screened presumptive positive at or above the listed threshold: _ [facility] ([place]) Comment on above: Performed By: #### U ERDS #### [address] [address] U ER Drugs Screened: See Below [facility] ([place]) Comment on above: Result Comment: This drug screen is a presumptive screening only. No confirmation will be performed unless requested. Drugs included in the ER urine drug screen are: Threshold Amphetamine/Methamphetamine 1000 ng/mL Barbiturates 200 ng/mL Benzodiazepine metabolites 200 ng/mL Cannabinoids (THC metabolites) 50 ng/mL Benzoylecognine (cocaine met) 300 ng/mL Opiates 300 ng/mL Phencyclidine (PCP) 25 ng/mL Testing has been performed FOR MEDICAL PURPOSES ONLY. Performed By: #### U ERDS #### [address] [address] CHEST PA/AP AND LATERALon CHEST PA/AP AND LATERAL CHEST PA/AP & LATERAL Ordering Physician: Trina Hunter 02/11/2020 1:26 PM PA AND LATERAL CHEST RADIOGRAPH: Clinical Statement: Shortness of breath Comparison: None FINDINGS: The cardiomediastinal contours are unremarkable. There is no vascular congestion, focal consolidation, pleural effusion or pneumothorax. No acute osseous abnormalities are identified. IMPRESSION: No acute abnormalities A copy of the above STAT report was sent to the ED at the time of interpretation. Dictated by [employer]nament[employer] Work[employer] Apprentice: Agustina Pierson MD Reviewed and Signed by: Ronnell Mccarthy MD FACR ---- Electronic Signature on File ---- Signed By: Ronnell Mccarthy MD FACR [email or web address] Dictated: 02/11/2020 2:47 PM Signed: 02/11/2020 2:49 PM Reported By: RONNELL MCCARTHY M.D. Signed By: RONNELL MCCARTHY M.D. [facility] 02-11-2020 EMERGENCY PHYSICIAN REPORT This is a preliminary report only, as the practitioner review and authentication has not occurred. [facility] ER PHYSICIAN ASSESSMENT RECORDS : FlexChartData Event Time: 02/11/2020 13:55 Status: Signed [facility] Andrew Mena [[id number]] Mid-Level Chart (V2b) / 1995 Chart created at 02/11/2020 13:41 by Trina Hunter Chart closed at 02/11/2020 18:12 Entry in Emergency Department at 02/11/2020 12:46, departure at 02/11/2020 17:28 Patient Name: Andrew Mena Record Number: [id number] Date: 02/11/2020 13:41 Entered Department at: 02/11/2020 12:46 Patient Seen at: 02/11/2020 13:18 Historian: Patient PCP: *None,. Chief Complaint:STATES SHE HAD A TATTOO DONE A FEW DAYS PRIOR, SITE NOW RED WITH DRAINAGE. PT ALSO C/O VAGINAL DRAINAGE AND PAIN FOR AN UNKNOWN AMOUNT OF TIME. Nursing triage/initial assessment reviewed and confirmed and Initial Vital Signs reviewed. Temperature: 98.5 F (36.9 C). Pulse: 116. Respiratory Rate: 18. Blood-pressure: 145/79. Oxygen Saturation: 100%. History of Present Illness: 25-Year-old female presenting to ED for evaluation of several complaints. Patient states that she had a tattoo done about 3 days ago. Ever since then she has been noticing some pain and redness at the tattoo site. She states that she has been noticing some green crustiness on it as well. No fevers or chills. [facility] PATIENT NAME: ANDREW MENA [address] [place] MEDICAL REC #: [id number] [place] [address] EMERGENCY DEPARTMENT REPORT EMERGENCY DEPARTMENT PHYSICIAN She is also complaining of some vaginal discharge and she has been noticing lately. She states that the greenish-orange. She does have a concern for STDs. She has been having some burning with urination. She is also complaining of shortness of breath. No cough. No chest pain. No fevers or chills. No other pertinent HPI Review of Systems. All other systems reviewed and negative.. Past History, Medications, Allergies, Social History and Family History reviewed in nurses note. Medications: Reviewed RN Note. Allergies: Reviewed RN Note Social History: Reviewed RN Note. Family History: Reviewed RN Note Physical Examination: General: Alert and Well Developed Neck: No Meningismus and Supple Respiratory: No Resp Distress and Normal Breath Sounds; Talking in full sentences in no respiratory distress Cardio-Vascular: No murmur, No rub and RRR Abdomen: Normal Bowel Sounds, Non-tender and Soft Extremity: No Calf Tenderness and No edema Neurological: Alert, Oriented X3 and No Gross Weakness Skin: Warm and Dry; There is a tattoo of left upper chest, there is some overlying erythema. No palpable abscess. No drainage. Psychological: Mood/Affect Normal and Normal Memory/Judgment (female): External genitalia is normal. No vaginal discharge. Cervix is normal. No cervical motion tenderness. UA COMPLETE, information as of 02/11/2020, 1:27 pm + +---------+ ---------+---------+-- -------+-------- + + +---------+ ---------+---------+-- -------+-------- + [facility] PATIENT NAME: ANDREW MENA [address] [place] MEDICAL REC #: [id number] [place] [address] EMERGENCY DEPARTMENT REPORT EMERGENCY DEPARTMENT PHYSICIAN + +---------+ ---------+---------+-- -------+-------- + + +---------+ ---------+---------+-- -------+-------- + + +---------+ ---------+---------+-- -------+-------- + HYALINE CAST: 3 /Lpf; MUCUS: 4+; SQUAMOUS EPIS: 65 Epi/Hpf; UA BACTERIA: 1+ /Hpf URINE , information as of 02/11/2020, 2:07 pm UR HCG QUAL: Neg; UR SPEC GRAV: [phone], information as of 02/11/2020, 3:10 pm TRICH WET PREP: Trichomonas Wt Prep Imaging Study Obtained: CHEST PA/AP LATERAL Imaging Study Obtained: CHEST PA/AP andamp; LATERAL, Status:Signed Report Available CHEST PA/AP andamp; LATERAL Ordering Physician: Trina Hunter 02/11/2020 1:26 PM PA AND LATERAL CHEST RADIOGRAPH: Clinical Statement: Shortness of breath Comparison: None FINDINGS: The cardiomediastinal contours are unremarkable. There is no vascular congestion, focal consolidation, pleural effusion [facility] PATIENT NAME: ANDREW MENA [address] [place] [address] Dr. Zelaya MEDICAL REC #: [id number] [place] [address] EMERGENCY DEPARTMENT REPORT EMERGENCY DEPARTMENT PHYSICIAN or pneumothorax. No acute osseous abnormalities are identified. IMPRESSION: No acute abnormalities A copy of the above STAT report was sent to the ED at the time of interpretation. Dictated by Ornamental Iron Worker Apprentice: Agustina Pierson MD Reviewed and Signed by: Ronnell Mccarthy MD FACR ---- Electronic Signature on File ---- Signed By: Ronnell Mccarthy MD FACR [email or web address] Dictated: 02/11/2020 2:47 PM Signed: 02/11/2020 2:49 PM Reported By: RONNELL MCCARTHY M.D. Medical Decision Making 25-Year-old female presenting to ED for evaluation of several complaints. Patient is nontoxic-appearing and in no immediate distress. Vital signs stable on presentation. Patient is stating that she got a tattoo a few days ago. She thinks is infected. There is some overlying erythema. No palpable abscess. She will be placed on Bactrim and Keflex for home. She is also complaining of shortness of breath. No cough, fevers, chills, chest pain. Patient was initially slightly tachycardic, therefore would recommend d-dimer from PERC score. Patient is refusing blood work. I did explain to her the importance of checking this d-dimer. She is still refusing. She is also complaining of [facility] PATIENT NAME: ANDREW MENA [facility] Dr. Zelaya MEDICAL REC #: [id number] [place] [address] EMERGENCY DEPARTMENT REPORT EMERGENCY DEPARTMENT PHYSICIAN some vaginal discharge and dysuria. UA does appear infected. Serum is negative. Pelvic exam is unremarkable. Wet prep was positive for a few clue cells. I well treat her empirically for gonorrhea and chlamydia with azithromycin and Rocephin. I will also give her Flagyl for home for bacterial vaginosis. Patient is requesting breathing treatments. At this point patient is medically stable for discharge. Again she is talking without respiratory distress. Pulse ox with no hypoxia. She still refusing the d-dimer but I do feel she can safely be discharged home otherwise. Patient is agreeable plan and is stable for discharge Clinical Impression: 1. Bacterial vaginosis 2. Urinary tract infection 3. Cellulitis of tattoo of left upper chest Disposition: Discharged *Home. Condition: Improved Direct patient care supervision and electronic documentation review by Odell Palacios on 02/11/2020 18:57. : FlexChartData Event Time: 02/11/2020 17:10 Status: Signed [facility] Andrew Mena [[id number]] Attending Physician 1995 Addendum (V2b) Chart created at 02/11/2020 16:38 by Odell Palacios Chart closed at 02/11/2020 16:39 Entry in Emergency Department at 02/11/2020 12:46 [facility] PATIENT NAME: ANDREW MENA [address] [facility] [address] Zelaya MEDICAL REC #: [id number] [place] [address] EMERGENCY DEPARTMENT REPORT EMERGENCY DEPARTMENT PHYSICIAN Patient Name: Andrew Mena Record Number: [id number] Date: 02/11/2020 16:38 Entered Department at: 02/11/2020 12:46 Patient Seen at: 02/11/2020 13:18 PCP: *None,. Chief Complaint:STATES SHE HAD A TATTOO DONE A FEW DAYS PRIOR, SITE NOW RED WITH DRAINAGE. PT ALSO C/O VAGINAL DRAINAGE AND PAIN FOR AN UNKNOWN AMOUNT OF TIME. Disposition: Discharged . Condition: Fair MSE completed. I was the primary ED attending.. I confirm that I have reviewed the mid-level providers documentation and agree with the evaluation, plan of care and disposition.. : Discharge Report Event Time: 02/11/2020 16:29 ===DISCHARGE REPORT=== : FlexChartData Event Time: 02/11/2020 13:55 : FlexChartData Event Time: 02/11/2020 17:10 : Discharge Report Event Time: 02/11/2020 16:29 Status: Draft Reasons to Return to the ER: You must return to the ER for any new, worsening or changing symptoms, or if you feel more ill or sick in any way. This is the most important thing to remember. Follow-up: The care you received in the ER was given on an emergency basis only, and it is often not possible to completely treat or diagnose a problem in a single ER [facility] PATIENT NAME: ANDREW MENA [facility] Dr. Zelaya MEDICAL REC #: [id number] [place] [address] EMERGENCY DEPARTMENT REPORT EMERGENCY DEPARTMENT PHYSICIAN visit. You must see your follow-up doctor for a recheck within a week unless you receive instructions with a different timeframe for follow-up. Please follow all your discharge instructions. Medications: Unless the ER doctor tells you differently, you should take all your regular medications and any new medications prescribed today. Because it is not possible for the ER doctor to review all of your medication side effects or interactions, you must review possible side effects and interactions with your pharmacist when you get your prescriptions filled. EKG and Radiology Results: A egg breaking machine operator or radiologist will review any EKG or radiology results provided by the ER doctor. We will contact you if the results in the final EKG or radiology reports require a change in treatment. Culture Results: Cultures may have been ordered during your ER visit. We will contact you if the culture results require a change in treatment. Referrals: Most referrals to specialists come from the on-call list You should make your regular doctor aware of any referrals before you schedule the appointment so that they are aware and can make suggestions DIAGNOSIS: Cellulitis of new tattoo Urinary tract infection Bacterial vaginosis INSTRUCTIONS: Complete course of Bactrim, Keflex, and Flagyl Please establish with a primary care doctor, referrals have been given to you Please return with any new or worsening symptoms [facility] PATIENT NAME: ANDREW MENA [address] [facility] [address] Zelaya MEDICAL REC #: [id number] [place] [address] EMERGENCY DEPARTMENT REPORT EMERGENCY DEPARTMENT PHYSICIAN A urinary tract infection (or UTI) is the medical name for an infection of the bladder or kidney. Both of these infections are caused by bacteria. Bladder infections (also called cystitis) may cause pain with urination, blood in the urine, increased frequency of urination or increased urge to urinate. They may also cause low grade fevers (under 102.5 degrees) or pain and spasm of the bladder. Kidney infections (also called pyelonephritis) may cause severe pain in the flanks or back, as well as nausea, vomiting, muscle aches and high fevers. It is also not uncommon to have an infection that is a combination of bladder and kidney infections, with some symptoms of both. Antibiotics are used to treat urinary infections. The doctor may also use medications to help with the pain and nausea. While you are sick you should try and rest, drink plenty of fluids, and avoid alcohol. Twup-ehz-jtbqhwu ibuprofen (if you are not ) or acetaminophen may be used for aches, pains and fever. You should avoid aspirin unless you are taking this medication for another reason. You must use all of your regular medications plus all the medications that were given to you today. UNLESS THE ER DOCTOR GIVES YOU OTHER INSTRUCTIONS, YOU MUST SEE YOUR FOLLOW-UP DOCTOR FOR RECHECK WITHIN 2 TO 3 DAYS YOU MUST RETURN TO THE ER RIGHT AWAY FOR ANY OF THE FOLLOWING:New or increasing fever or chillsNew or increasing flank or abdominal painNew or increasing nausea or vomitingNew or increasing weakness, dizziness or confusionNew or increasing blood in the urine UNLESS THE ER DOCTOR GIVES YOU OTHER INSTRUCTIONS, YOU MUST SEE YOUR FOLLOW-UP DOCTOR FOR RECHECK WITHIN 2 TO 3 DAYS. YOU MUST RETURN TO THE ER RIGHT AWAY FOR ANY OF THE FOLLOWING:New or increasing fever or chillsInfected area gets larger or more painfulNew or increasing red streaks appearNew or increasing drainageNew or increasing vomitingNew or increasing weakness or confusion [facility] PATIENT NAME: ANDREW MENA [address] [facility] Dr[address] Zelaya MEDICAL REC #: [id number] [place] [address] EMERGENCY DEPARTMENT REPORT EMERGENCY DEPARTMENT PHYSICIAN After careful evaluation, the doctor feels that it is OK to send you home at this time. Just because you were not admitted into the hospital today does not mean that your infection may not become worse. Even very serious problems, like infections spreading into the blood, may start with a normal examination or test results. A cellulitis is the medical term for an infection of the skin caused by bacteria. An abscess occurs when an infection creates a collection of pus, called a boil. Lymphangitis refers to the red streaks that occur when an infection begins to spread under the skin. All of these infections are treated in a similar way. You must rest and elevate the infected part of the body as much as possible. You should also apply warm packs to the infected area or soak the area in warm water 4 times per day for 20 minutes each. If you had a boil, it may have been opened or drained in the emergency department. If it was drained, you may also have a packing inside the boil to allow it to drain even more. This packing should be removed in 2 to 3 days by the doctor who rechecks you. Do not worry if the packing falls out sooner and do not try to put it back in. While you are sick you should try and rest, drink plenty of fluids, and avoid alcohol and tobacco. Txpy-quu-ofezkva ibuprofen (if you are not ) or acetaminophen may be used for aches, pains and fever. You should avoid aspirin unless you are taking this medication for another reason. You must use all of your regular medications plus all the medications that were given to you today. UNLESS THE ER DOCTOR GIVES YOU OTHER INSTRUCTIONS, YOU MUST SEE YOUR FOLLOW-UP DOCTOR FOR RECHECK WITHIN 2 TO 3 DAYS. YOU MUST RETURN TO THE ER RIGHT AWAY FOR ANY OF THE FOLLOWING:New or increasing fever or chillsInfected area gets larger or more painfulNew or increasing red streaks appearNew or increasing drainageNew or increasing vomitingNew or increasing weakness or confusion REFERRAL [facility] PATIENT NAME: ANDREW MENA [address] [place] [address] Dr. Zelaya MEDICAL REC #: [id number] [place] [address] EMERGENCY DEPARTMENT REPORT EMERGENCY DEPARTMENT PHYSICIAN [facility], Address: [address] [place] [address] Dr RACE [place] [id number], , fax: Please call the above number to schedule a follow-up appointment. [facility], Address: [address] [place] [phone], , fax: Please call the above number to schedule a follow-up appointment. 2-3 days MEDICATIONS We have given you these prescriptions that you must fill and start taking: Bactrim DS 800 mg-160 mg tablet, count:20, Dose = 1, count:20, 10 days, count:20,2 times a day, count:20 Keflex 500 mg capsule, count:40, Dose = 1, count:40, 10 days, count:40,4 times a day, count:40 Flagyl 500 mg tablet, count:14, Dose = 1, count:14, 7 days, count:14,2 times a day, count:14, Number of Refills = 0, count:14 COMMENTS: Patient Satisfaction: Within the first few days after your visit, you will receive an email and/or phone call regarding your visit. We value your feedback, and would appreciate it if you would take the time to complete this short survey. If you receive a call, it will be between 6p and 8p. My signature below indicates that I have received and understand the oral instructions regarding my medical problem. I also acknowledge receipt of this written instruction sheet including a list of major tests and procedures ordered during my visit. I will [facility] PATIENT NAME: ANDERW MENA [address] [facility] [address] Zelaya MEDICAL REC #: [id number] [place] [address] EMERGENCY DEPARTMENT REPORT EMERGENCY DEPARTMENT PHYSICIAN arrange for follow-up care as indicated by these instructions and referrals. This signed original will be kept in my medical record. Your signature below indicates consent for Case Management to contact [facility] in an effort to meet your ongoing healthcare needs. This will allow forcontinuity of care once you leave the Emergency Department. This exchange of informationwill include, but not be limited to, disclosure of your patient information and possible release of records. 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 PT ALSO C/O VAGINAL DRAINAGE AND PAIN FOR AN UNKNOWN AMOUNT OF TIME. Arrival Date: 02/11/2020 12:46 Triage Date: 02/11/2020 12:46 Mode of Arrival: *Privately Owned Vehicle WC: N [facility] PATIENT NAME: ANDREW MENA [address] [facility] [address] Zelaya MEDICAL REC #: [id number] [place] [address] EMERGENCY DEPARTMENT REPORT EMERGENCY DEPARTMENT PHYSICIAN Language: Swazi Transport: Ambulatory/Walk In BED D43 In: 02/11/2020 13:11:28 02/11/2020 13:11:28 AKFB D43 (Removed From) Out: 02/11/2020 17:28:04 02/11/2020 17:28:04 SLV PROVIDERS Trina Hunter Provider Contact: 02/11/2020 13:13:01 NEN End: STEFANIE Higuera Provider Contact: 02/11/2020 13:16:37 CAH End: MD Odell Palacios Provider Contact: 02/11/2020 13:18:00 JMF1 End: STEFANIE Sosa Provider Contact: 02/11/2020 16:03:44 SLV End: TRIAGE HISTORY ALLERGIES Allergic To: PCN - *N/A 02/11/2020 12:55 KSE1 CURRENT MEDS Name: Unable to Obtain Information 02/11/2020 14:17 CAH Name: See nurses note 02/11/2020 14:17 CAH ILLNESS Illness: *None 02/11/2020 12:55 KSE1 [facility] PATIENT NAME: ANDREW MENA [address] [facility] [address] Zelaya MEDICAL REC #: [id number] [place] [address] EMERGENCY DEPARTMENT REPORT EMERGENCY DEPARTMENT PHYSICIAN PAST SURGERY HIST Surgery: None 02/11/2020 12:55 KSE1 PAST SOCIAL HIST Social History: Communicates without difficulty 02/11/2020 12:55 KSE1 Social History: Lives alone 02/11/2020 12:55 KSE1 Social History: Alcohol - None 02/11/2020 12:55 KSE1 Social History: Recreational Drugs - Occasional 02/11/2020 12:55 KSE1 Social History: Smoker-1/2 PPD 02/11/2020 12:55 KSE1 Social History: Have you traveled in the past month? 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 Social History: Last Menstrual Period UNKNOWN 02/11/2020 12:55 KSE1 NURSING ASSESSMENT Respiratory Treatment : Respiratory Therapy Treatment Event Time: 02/11/2020 17:09 JLME Therapy:Aerosol: Albuterol 2.5mg Normal Saline 2.5cc Pre Treatment Auscultation:clear: apical: bilaterally diminshed: basilar: bilaterally Pre Treatment Vital Signs:Note:HR 92 RR 16 Small Volume Nebulizer Treatment:SVN given with mouthpiece Patient encouraged to cough/deep breath Post Treatment Auscultation:clear: apical: bilaterally diminshed: basilar: bilaterally Post Treatment Vital Signs:Note:HR 100 RR 16 ASSESSMENT NOTES [facility] PATIENT NAME: ANDREW MENA [address] [facility] [address] Zelaya MEDICAL REC #: [id number] [place] [address] EMERGENCY DEPARTMENT REPORT EMERGENCY DEPARTMENT PHYSICIAN 02/11/2020 14:17 Upon assessment, while asking Pt questions, Pt states, I dont want to answer any more questions, Paz had enough. Pt agitated and states she has a lot going on, doesnt mean to be rude, but she doesnt want to answer anything else. Med list not obtained at this time. Pt has upper left chest tattoo that appears reddened with slight swelling noted. Rates pain 10/10. Also states she has been SOB and has infections and stuff coming out of my vagina. When asked when symptoms started, Pt states, I dont know. 02/11/2020 14:21 CAH 02/11/2020 15:22 Pt refusing blood work. Insists she needs a breathing treatment, and that no one is drawing blood from me. Explained to patient why blood is being drawn, but patient continues to refuse and Trina PA at bedside and aware. 02/11/2020 15:25 CAH 02/11/2020 16:48 Discharge on hold due to breathing treatment request 02/11/2020 16:49 SLV TREATMENT 02/11/2020 14:12 Hourly Rounding - Rounding 02/11/2020 14:13 CAH Elimination/Toileting Y Pain 10 Position Comfortable Y Safe Environment Y Fall Risk Change N 02/11/2020 14:12 Staff/ Patient Interaction - Call light placed within reach. 02/11/2020 14:13 CAH 02/11/2020 14:12 Staff/ Patient Interaction - Introduced self and assessed patients needs. 02/11/2020 14:13 [facility] 02/11/2020 14:12 Primary DOC Guide - A. 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 Zelaya MEDICAL REC #: [id number] [place] [address] EMERGENCY DEPARTMENT REPORT EMERGENCY DEPARTMENT PHYSICIAN TB Screening All Negative Latex Allergy Screen All Negative Travel History - Traveled outside of the state in the last 30 days No Travel History - Had contact with a person who has traveled outside the state in the last 30 days No 02/11/2020 14:13 Primary DOC Guide - B. Fall Risk Assessment (Age andlt;65) 02/11/2020 14:13 [facility] History of Falling in last 3 months? No (0) Confusion or Disorientation? No (0) Intoxicated or Sedated? No (0) Impaired Gait? No (0) Mobility Assist Device Used? No (0) Altered Elimination? No (0) Fall Risk Score 1-2 Points = Low Risk. 3-4 Points = Moderate Risk. 5 or more points = High Risk. 0 Fall Score Greater andgt;= 3? 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 Awaiting exam by PMD. 02/11/2020 14:13 CAH 02/11/2020 16:49 Admit/Discharge - *Discharge instructions/tests andamp; procedures/med list reviewed and provided; prescriptions given to patient 02/11/2020 16:49 SLV 02/11/2020 16:49 Admit/Discharge - Ambulated with steady gait home 02/11/2020 16:49 SLV 02/11/2020 16:49 Admit/Discharge - Discharge infomation reviewed with pt 02/11/2020 16:49 SLV 02/11/2020 16:49 Education - Discharge Instructions reviewed and patient voices understanding. 02/11/2020 16:49 SLV 02/11/2020 16:49 Education - Printed Discharge Instructions and given to patient/family. 02/11/2020 16:49 SLV 02/11/2020 16:49 Education - Purpose/Use Medication discussed with patient. 02/11/2020 16:49 SLV MEDICATIONS [facility] PATIENT NAME: ANDREW MENA [address] [facility] [address] Zelaya MEDICAL REC #: [id number] [place] [address] EMERGENCY DEPARTMENT REPORT EMERGENCY DEPARTMENT PHYSICIAN IV I AND O VITALS VS-ROUTINE Time: 02/11/2020 12:53 B/P: 145/79 - Right Upper Arm - Sitting - Machine Pulse: 116 - Monitor Resp: 18 Sa02: 100 Room Air Temp: 98.50 F - Oral 02/11/2020 12:55 KSE1 VS-Pain Time: 02/11/2020 12:53 Pain Level: 10 02/11/2020 12:55 KSE1 VS-GCS Time: 02/11/2020 12:53 Visual: 4 Verbal: 5 Motor: 6 GCS Total: 15 02/11/2020 12:55 KSE1 VS-HT/WT Time: 02/11/2020 12:53 Ht: 162.5 cm Stated Weight: 88.5 kg Stated 02/11/2020 12:55 KSE1 VS-Visual Time: 02/11/2020 12:53 02/11/2020 12:55 KSE1 VS-FHT Time: 02/11/2020 12:53 02/11/2020 12:55 KSE1 VS-Notes Time: 02/11/2020 12:53 MAP: 106 02/11/2020 12:55 KSE1 VS-ROUTINE Time: 02/11/2020 14:09 B/P: 106/69 - Left Upper Arm - Lying - Machine Pulse: 92 - Monitor Resp: 18 Sa02: 98 Room Air 02/11/2020 14:10 CAH VS-Pain Time: 02/11/2020 14:09 Pain Level: 10 02/11/2020 14:10 CAH VS-GCS Time: 02/11/2020 14:09 02/11/2020 14:10 CAH VS-HT/WT Time: 02/11/2020 14:09 02/11/2020 14:10 CAH VS-Visual Time: 02/11/2020 14:09 02/11/2020 14:10 CAH VS-FHT Time: 02/11/2020 14:09 02/11/2020 14:10 CAH VS-Notes Time: 02/11/2020 14:09 MAP 83 02/11/2020 14:10 CAH ORDERS Albuterol aerosol 2.5mg 02/11/2020 16:52 [facility] PATIENT NAME: ANDRWE MENA [address] [facility] [address] Zelaya MEDICAL REC #: [id number] [place] [address] EMERGENCY DEPARTMENT REPORT EMERGENCY DEPARTMENT PHYSICIAN N/A Ordered: 02/11/2020 16:44 By Trina Hunter Noted Time: 02/11/2020 16:52 JLME Discharge patient 02/11/2020 16:38 N/A Ordered: 02/11/2020 16:28 By . Other Reviewed: 02/11/2020 16:38 By . Other Zithromax (PO)*(250mg) DOSE: 1000 mg PO 02/11/2020 16:39 N/A Ordered: 02/11/2020 16:02 By Trina Hunter Completed Time: 02/11/2020 16:39 By Trina Hunter Noted Time: 02/11/2020 16:24 SLV Rocephin (IM)(250mg) DOSE: 250 mg IM 02/11/2020 16:39 N/A Ordered: 02/11/2020 16:02 By Trina Hunter Completed Time: 02/11/2020 16:39 By Trina Hunter Noted Time: 02/11/2020 16:24 SLV CXR PA and lateral 02/11/2020 14:58 N/A Ordered: 02/11/2020 13:26 By Trina Hunter Completed Time: 02/11/2020 14:58 By Trina Hunter Indication: shortness of breath Noted Time: 02/11/2020 14:48 Question: Are you or think you might be ? Answer: PENDING Question: How is patient transported? (A = Ambulatory, B = Bed, C = Carry, CR = Crib, P = Portable, S = Stretcher, W = Wheelchair, X = Wide Wheelchair, XT = Trauma X RM17 (ED Only)) Answer: STRETCHER UA ccms (cath if unable to void in 30 mins) 02/11/2020 14:27 N/A Ordered: 02/11/2020 13:26 By Trina Hunter Completed Time: 02/11/2020 14:27 By Trina Hunter Noted Time: 02/11/2020 14:09 CAH Question: Lab Urine Specimen Type Answer: Clean Catch Question: Also Culture, if indicated by UA results (Y or N) [facility] PATIENT NAME: ANDREW MENA [address] [place] [address] Dr. Zelaya MEDICAL REC #: [id number] [place] [address] EMERGENCY DEPARTMENT REPORT EMERGENCY DEPARTMENT PHYSICIAN Answer: NO Results Time: 02/11/2020 14:27 GC andamp; chlamydia 02/11/2020 15:25 N/A Ordered: 02/11/2020 13:26 By Trina Hunter Noted Time: 02/11/2020 15:25 CAH Question: Lab Source PCR Answer: Urine (urine) 02/11/2020 14:25 N/A Ordered: 02/11/2020 13:26 By Trina Hunter Completed Time: 02/11/2020 14:25 By Trina Hunter Noted Time: 02/11/2020 14:09 CAH Results Time: 02/11/2020 14:25 Pelvic set-up 02/11/2020 14:09 N/A Ordered: 02/11/2020 13:26 By Trina Hunter Completed Time: 02/11/2020 14:09 By Trina Hunter Noted Time: 02/11/2020 13:55 CAH Wet prep for trich andamp; yeast 02/11/2020 15:41 N/A Ordered: 02/11/2020 13:26 By Trina Hunter Completed Time: 02/11/2020 15:41 By Trina Hunter Noted Time: 02/11/2020 15:25 CAH Question: [place] Source Wet Prep Answer: Vaginal Question: [place] Description Wet Prep Answer: Swab Results Time: 02/11/2020 15:41 POC dimer 02/11/2020 16:20 N/A Ordered: 02/11/2020 14:49 By Trina Hunter Cancelled: 02/11/2020 16:19 JMF1 Cancelled Reason: patient refused DISCHARGE Diagnosis: Cellulitis of new tattoo 02/11/2020 16:29 Urinary tract infection 02/11/2020 16:29 Bacterial vaginosis 02/11/2020 16:29 [facility] PATIENT NAME: ANDREW MENA [address] [facility] [address] Zelaya MEDICAL REC #: [id number] [place] [address] EMERGENCY DEPARTMENT REPORT EMERGENCY DEPARTMENT PHYSICIAN Disposition: Time: 02/11/2020 16:28 Discharge Time: 02/11/2020 17:28 Type: *Discharge Condition: Stable for admission/discharge/tr ansfer after emergency evaluation/treatment Category: *NOT APPLICABLE Referral: 02/11/2020 16:29 Admit Physician: . Other PRESCRIPTIONS Bactrim DS 800 mg-160 mg tablet 02/11/2020 16:03 SI bid for 10 days Dispense: 20 / Refills: Keflex 500 mg capsule 02/11/2020 16:03 SI qid for 10 days Dispense: 40 / Refills: Flagyl 500 mg tablet 02/11/2020 16:03 SI bid for 7 days Dispense: 14 / Refills: CHARGES SIGNATURE Romana Higuera RN CAH Kisha Kraus RN KSE1 Canelo Sosa RN SLV Odell Palacios MD JMF1 CAROLA JACOBS JLME TAHIR LANCE MEDIC KPW SOLITARIO SOTELO RN AKFB Trina MARTINES [facility] PATIENT NAME: ANDREW MENA [address] [place] [address] Dr. Zelaya MEDICAL REC #: [id number] [place] [address] EMERGENCY DEPARTMENT REPORT EMERGENCY DEPARTMENT PHYSICIAN Normal [facility] TRICH WET PREPon 02-11-2020 TRICH WET PREP TRICHOMONAS WT PREP NO TRICHOMONAS VAGINALIS OR YEAST SEEN FEW CLUE CELLS SEEN RARE WBC'S SEEN Normal [facility] Comment on above: Order Comment: Rafal s: M Performed By: #### M [id number] #### [facility] [address] [place] [address] UA COMPLETEon 02-11-2020 Color (U) Mallory Normal [facility] Comment on above: Order Comment: Gabeu s: M Performed By: #### L [id number] #### [facility] [address] [place] [address] Glucose (U) [Mass/Vol] Negative Normal NORMAL [facility] Comment on above: Order Comment: Gabeu s: M Performed By: #### L [id number] #### [facility] [address] [place] [address] HYALINE CAST 3 /LPF High 0-1 [facility] Comment on above: Order Comment: Campu s: M Performed By: #### L [id number] #### [facility] [address] [place] [address] Mucus Ql (Urine sed) 4+ Normal NEGATIVE [facility] Comment on above: Order Comment: Campu s: M Performed By: #### L [id number] #### [facility] [address] [place] [address] SQUAMOUS EPIS 65 EPI/HPF High 0-5 [facility] Comment on above: Order Comment: Campu s: M Performed By: #### L [id number] #### [facility] [place] [id number] UA APPEARANCE Cloudy Normal CLEAR [facility] Comment on above: Order Comment: Campu s: M Performed By: #### L [id number] #### [facility] [place] [address] UA BACTERIA 1+ /HPF Normal NONE [facility] Comment on above: Order Comment: Campu s: M Performed By: #### L [id number] #### [facility] [address] [place] [address] UA BILIRUBIN Negative Normal NEGATIVE [facility] Comment on above: Order Comment: Campu s: M Performed By: #### L [id number] #### [facility] [address] [place] [address] UA BLOOD MOD Normal NEGATIVE [facility] Comment on above: Order Comment: Campu s: M Performed By: #### L [id number] #### [facility] [address] [place] [address] UA KETONE [address] [facility] Comment on above: Order Comment: Campu s: M Performed By: #### L [id number] #### [facility] [address] [place] [id number] UA LK ESTERASE [address] [facility] Comment on above: Order Comment: Campu s: M Performed By: #### L 600.69196 #### [facility] [address] [place] [address] UA NITRITE Negative Normal NEGATIVE [facility] Comment on above: Order Comment: Campu s: M Performed By: #### L [id number] #### [facility] [address] [place] [address] UA PH 5.0 Normal 5-6 [facility] Comment on above: Order Comment: Campu s: M Performed By: #### L [id number] #### [facility] [address] [place] [address] UA PROTEIN [address] [facility] Comment on above: Order Comment: Campu s: M Performed By: #### L [id number] #### [facility] [address] [place] [address] UA RBC 6 RBC/HPF High 0-3 [facility] Comment on above: Order Comment: Campu s: M Performed By: #### L [id number] #### [facility] [address] [place] [address] UA SPEC GRAV 1.031 Normal 1.005-1.030 [facility] Comment on above: Order Comment: Campu s: M Performed By: #### L 600.04099 #### [facility] [address] [place] [address] UA UROBILINOGEN 2.[address] [facility] Comment on above: Order Comment: Campu s: M Performed By: #### L [id number] #### [facility] [address] [place] [address] UA WBC 24 WBC/HPF High 0-5 [facility] Comment on above: Order Comment: Campu s: M Performed By: #### L [id number] #### [facility] [address] [place] [address] URINE PREGNANCYon 02-11-2020 Beta HCG ( test) Ql (U) Negative Normal NEGATIVE [facility] Comment on above: Order Comment: Campu s: M Performed By: #### L [id number] #### [facility] [address] [place] [address] UR SPEC GRAV 1.031 Normal 1.005-1.030 [facility] Comment on above: Order Comment: Campu s: M Performed By: #### L 600.82501 #### [facility] [address] [place] [address] CPKon 05-29-2018 CK enzyme act/vol 229 U/L High 26-192 [facility] Comment on above: Performed By: #### C K ####[place] [address] Comprehensive Panelon 2017 ALP enzyme act/vol 86 U/L Normal 46-116 [facility] Comment on above: Performed By: #### P 14 ####[place] [address] Bilirubin mass conc 1.1 mg/dL High 0.2-1.0 [facility] Comment on above: Performed By: #### P 14 ####[address] [address] Protein mass conc 8.9 g/dL High 6.4-8.2 [facility] Comment on above: Performed By: #### P 14 ####[address] [address] Creatinine mass conc 0.83 mg/dL Normal 0.51-0.95 [facility] Comment on above: Performed By: #### P 14 ####[facility] [place], [place] [address] ALT enzyme act/vol 48 U/L Normal 12-78 [facility] Comment on above: Performed By: #### P 14 ####[facility] [place], [place] [address] AST enzyme act/vol 22 U/L Normal 9-37 [facility] Comment on above: Performed By: #### P 14 ####[facility] [place], [place] [address] Albumin mass conc 4.8 g/dL Normal 3.4-5.0 [facility] Comment on above: Performed By: #### P 14 ####[facility] [place], [place] [address] Anion gap 3 molar conc 14 mmol/L Normal 8-16 [facility] Comment on above: Performed By: #### P 14 ####[address] [address] CO2 molar conc 23 mmol/L Normal 21-32 [facility] Comment on above: Performed By: #### P 14 ####[address] [address] Glucose mass conc 93 mg/dL Normal 70-99 [facility] Comment on above: Performed By: #### P 14 ####[address] [address] Urea nitrogen mass conc 18 mg/dL Normal 7-18 [facility] Comment on above: Performed By: #### P 14 ####[address] [address] Calcium mass conc 9.5 mg/dL Normal 8.5-10.1 [facility] Comment on above: Performed By: #### P 14 ####[address] [address] Chloride molar conc 105 mmol/L Normal 98-107 [facility] Comment on above: Performed By: #### P 14 ####[address] [address] Potassium molar conc 3.3 mmol/L Low 3.5-5.1 [facility] Comment on above: Performed By: #### P 14 ####[facility] [place], [place] [address] Sodium molar conc 139 mmol/L Normal 136-145 [facility] Comment on above: Performed By: #### P 14 ####[facility] [place], [place] [address] ED NOTEon 05-29-2018 ED NOTE HNO ID: [id number] Author: Heidi Ball RN Service: Emergency Medicine Author Type: Registered Nurse Type: ED Notes Filed: 05/29/2018 6:54 AM Note Text: Pt is now AANDOx4, re-oriented to reality, denies SI/HI, calm and cooperative. [facility] ED NOTE HNO ID: [id number] Author: Heidi Ball RN Service: Emergency Medicine Author Type: Registered Nurse Type: ED Notes Filed: 05/29/2018 6:50 AM Note Text: Physician at bedside [facility] ED NOTE HNO ID: [id number] Author: Heidi Ball RN Service: Emergency Medicine Author Type: Registered Nurse Type: ED Notes Filed: 05/29/2018 6:45 AM Note Text: Pt asking for frequent updates from physician. Dr. Elida barclay. [facility] ED NOTE HNO ID: [id number] Author: Arnold Fregoso (Tech) Service: Emergency Medicine Author Type: Washery Engineer Type: ED Notes Filed: 05/29/2018 2:33 AM Note Text: Straight cath urine specimen obtained and sent. [facility] ED NOTE HNO ID: [id number] Author: Terrance Bermudez) STEFANIE Green Service: Emergency Medicine Author Type: Registered Nurse Type: ED Notes Filed: 05/29/2018 2:04 AM Note Text: CK add on sent at this time [facility] ED NOTE HNO ID: [id number] Author: Terrance Bermudez) Norma RN Service: Emergency Medicine Author Type: Registered Nurse Type: ED Notes Filed: 05/29/2018 2:04 AM Note Text: Moved to room 32 at this time. Report to paula herrera rn [facility] ED NOTE HNO ID: [id number] Author: Terrance (Rn) STEFANIE Green Service: Emergency Medicine Author Type: Registered Nurse Type: ED Notes Filed: 05/29/2018 2:03 AM Note Text: Lab work sent at this time Normal [facility] ED NOTE HNO ID: [id number] Author: Star SchulzRn) STEFANIE Holliday Service: (none) Author Type: Registered Nurse Type: ED Notes Filed: 05/29/2018 12:52 AM Note Text: Bed: 01-ED Expected date: 05/29/18 Expected time: Means of arrival: Comments: Screaming Patient Normal [facility] ED PROV NOTEon 05-29-2018 Protein mass conc HNO ID: [id number]: Jair (Res) RADHA Marreroervice: Emergency MedicineAuthor Type: ResidentType: ED Provider NotesFiled: 05/29/2018 7:08 AMNote Text: Att estation signed by Jaqui Gandhi MD at 06/24/2018 6:28 PMAttending NoteI evaluated the patient and personally participated in the hua components. Isupervised and was present for hua portions of any procedures performed by theresident. I agree with the resident's findings and plan with the followingrevisions and/or additions:Andrew Mena is a 23 year old female who presents with altered mental status.States she . Endorses methamphetamine and ecstasy use.On exam, she is in no acute distress. No focal neurologic findings. Mildlyagitated. Tachycardic.Labs positive for amphetamines, THC. CK borderline elevated. Tachycardic,consistent with methamphetamine use. EKG with sinus tachycardia, no acutechanges. Presentation consistent with methamphetamine intoxication. Not anacute harm to herself or others. Observed for improvement and discharged home.Signature: Jaqui Gandhi MD ED Provider NotePatient Name: Andrew MenaMRN: [id number] DATE: 05/29/18HistoryPatient presents with:Psychiatric Problem: Pt comes to ED pink slipped by [employer]. Pt was screamingand hitting the lr in her room when another person called. Pt toldpolice she took meth and other drugs. Pt denies all drug use upon arrivalto ED. Pt stating I today, I and i came back. Pt states shewas arguing with all of her friends before she .Andrew Mena is a 23-year-old is brought in by [employer] due to yelling andscreaming at the top of her lungs in a hotel. She tells me that I was inan argument with my friends on Facebook and then I . I got over 200comments on Facebook. She initially denied doing any drugs, but onreevaluation did endorse using methamphetamine and ecstasy. She continuesto state think I tonight. When told about her lab work, she states Iguess I might not have as my lab work doesn't show evidence of that.She denies suicidal or homicidal ideation. She has no otherhallucinations. She denies any other sick symptoms.PAST MEDICAL HISTORYDiagnosis Date- negativePAST SURGICAL HISTORYProcedure Laterality Date- PAST SURGICAL HISTORY OF wisdom teethFAMILY HISTORYProblem Relation Age of Onset- Seizures Maternal GrandmotherSocial HistorySocial History Main Topics- Smoking status: Former Smoker Years: 3.00- Smokeless tobacco: Never Used Comment: smokes 3-4 cigarettes a week- Alcohol use No- Drug use: No- Sexual activity: Yes Partners: Male control/ protection: NoneALLERGIESAllergen Reactions- Penicillins RashReview of SystemsUnable to perform ROS: Psychiatric disorderPhysical ExamBP 111/73 Pulse 105 Temp (Src) 97.7 (Oral) Resp 22 Ht 5' 3(1.60m) Wt 207 lb (93.9kg) SpO2 100% BMI 36.68 kg/(m2).Physical ExamConstitutional: She is oriented to person, place, and time. She appearswell-developed and well-nourished. No distress.HENT:Head: Normocephalic and atraumatic.Right Ear: External ear normal.Left Ear: External ear normal.Eyes: Pupils are equal, round, and reactive to light. No scleral icterus.Neck: Normal range of motion. Neck supple.Cardiovascular: Regular rhythm, normal heart sounds and intact distalpulses. Exam reveals no gallop and no friction rub.No murmur heard.tachycardiaPulmo nary/Chest: Effort normal and breath sounds normal. No stridor. Norespiratory distress. She has no wheezes. She has no rales. She exhibitsno tenderness.Abdominal: Soft. There is no tenderness. There is no guarding.Musculoskelet al: Normal range of motion. She exhibits no edema, tendernessor deformity.Neurological : She is alert and oriented to person, place, and time. Nocranial nerve deficit.Skin: Skin is warm. Capillary refill takes less than 2 seconds. No rashnoted. She is not diaphoretic.Small amount of sweatPsychiatric:Mild agitation, internal stimulation, recurrent belief that she diedtonight. No active SI/HINursing note and vitals reviewed.Diagnostic TestingResults for orders placed or performed during the hospital encounter of05/29/18CBC + AUTO DIFF (EU,FV,HL,MYESHA,MM,SP)Res ult Value Ref Range WBC 10.58 (H) 3.98 - 10.04 thou/cmm RBC 5.02 3.93 - 5.22 mil/cmm HGB 14.2 11.2 - 15.7 g/dL Hematocrit 43.9 34.1 - 44.9 % MCV 87.5 79.4 - 94.8 fl MCH 28.3 25.6 - 32.2 pg MCHC 32.3 31.6 - 34.8 % RDW 13.6 11.7 - 14.4 % RDW-SD 43.7 36.4 - 46.3 fl Platelet Count 405 (H) 182 - 369 thou/cmm MPV 10.5 9.4 - 12.3 fl Seg Neutrophil 55.4 % Immature Grans 0.40 % Lymphocyte 33.1 % Monocyte 7.8 % Eosinophil 2.5 % Basophil 0.8 % Abs. Neut(Anc) 5.86 1.56 - 6.13 thou/cmm Immature Grans # 0.04 0.00 - 0.05 thou/cmm Abs. Lymph 3.50 1.18 - 3.74 thou/cmm Abs. Brewster 0.83 (H) 0.27 - 0.70 thou/cmm Abs. Eosin 0.26 0.00 - 0.31 thou/cmm Abs. Baso 0.08 0.01 - 0.08 thou/cmmCOMPREHENSIVE METABOLIC PANEL (EU,FV,HL,MYESHA,MM,SP)Res ult Value Ref Range Sodium 139 136 - 145 mEq/L Potassium 3.3 (L) 3.5 - 5.1 mEq/L Chloride 105 98 - 107 mEq/L CO2 23 21 - 32 mEq/L Glucose 93 70 - 99 mg/dL BUN 18 7 - 18 mg/dL Creatinine 0.83 0.51 - 0.95 mg/dL Calcium 9.5 8.5 - 10.1 mg/dL Albumin 4.8 3.4 - 5.0 g/dL Protein, Total 8.9 (H) 6.4 - 8.2 g/dL AST 22 9 - 37 U/L ALT 48 12 - 78 U/L Alkaline Phosphatase 86 46 - 116 U/L Bilirubin, Total 1.1 (H) 0.2 - 1.0 mg/dL Anion Gap 14 8 - 16MDRD GFRResult Value Ref Range eGFR >60 >60mL/min/1.34u5CYGQ ANALYSIS COMPREHENSIVE (MYESHA,MM)Result Value Ref Range Salicylate <1.7 (L) 2.8 - 20.0 mg/dL Alcohol, Serum <3 mg/dl Acetaminophen <2.0 (L) 10.0 - 30.0 mg/L Amphetamines, Urine see below Non-Detected Barbiturates, Urine Non-detected Non-Detected Benzodiazepines, Urine Non-detected Non-Detected Cocaine Metab, Urine Non-detected Non-Detected Opiates, Urine Non-detected Non-Detected Phencyclidine, Urine Non-detected Non-Detected THC (Marijuana) Urine see below Non-DetectedCK CREATINE KINASE (EU,FV,HL,MYESHA,MM,SP)Res ult Value Ref Range CK 229 (H) 26 - 192 U/LHCG QUALITATIVE URINE (AK,AV,EU,FV,HL,MYESHA,MM, SP)Result Value Ref Range HCG Qualitative, Urine Negative Negative Specific [place], Ur 1.034 (H) 1.005 - 1.030URINALYSIS WITH MICROSCOPIC (AK,AV,EU,FV,HL,MYESHA,MM, SP)Result Value Ref Range Color DK YELLOW Urine Appearance CLEAR Glucose, Urine NEGATIVE Negative mg/dL Ketones, Urine 40 (A) Negative mg/dL Hemoglobin, Urine NEGATIVE Negative Protein, Urine 30 (A) Negative mg/dL Nitrites Urine NEGATIVE Negative Bilirubin, Urine see below (A) Negative Specific [place], Ur 1.034 1.005 - 1.030 pH, Urine 6.0 5.0 - 8.0 Urobilinogen, Urine 1.0 0.0 - 1.0 EU/dL Leukocytes Esterase NEGATIVE Negative Hyaline Cast 0.0-1 0.0 - 1.0 /lpf RBC, Urine 3.0 0.0 - 5.0 /hpf WBC, Urine 1.5 0.0 - 5.0 /hpf EP Cells Urine 5.7 (H) 0.0 - 5.0 /hpf Bacteria, Urine NONE NoneEKGResult Value Ref Range [employer] Vice President NAME : DAKSHA MENAEPID : [id number] : [id number] : FemaleRace : CaucasianORD :Procedure Date : May 29 2018 00:54Edit Date : May 29 2018 06:11Diagnosis:SINUS TACHYCARDIACANNOT RULE OUT ANTERIOR INFARCT , AGE UNDETERMINEDABNORMAL ECGNO PREVIOUS ECGS AVAILABLEConfirmed by Jaqui Gandhi ([id number]) on 05/29/2018 6:11:46 AMVentricular Rate : 115 BPMAtrial Rate : 115 BPMP-R Interval : 128 msQRS Duration : 76 msQ-T Interval : 336 msQTC Calculation(Bezet) : 464 msP [place] : 53 degreesR [place] : 53 degreesT [place] : 37 degreesTest Reason :Location : 4 : [facility] EMOverread By : Kelvin Gandhi By : Chito Gandhi ed By : ,Acquired by : Noel Elise sED Course / Clinical ImpressionED Course as of May 29 706[facility]ellis (Res) Elida's DocumentationSat May 2949 Leukocytes Esterase: NEGATIVEClinical Impressions as of May 29 0706Substance abuse (HCC)MDM / Disposition / PlanMDMPatient presents for evaluation of substance abuse, couple reviewed bymild psychosis. Physical exam shows tachycardia, sympathomimetictoxidro me. Otherwise nonfocal exam. No indication for head CT at thistime as patient has no focal neurologic deficits, and symptoms are betterexplained by sympathomimetic toxidrome. Lab work does show evidence ofamphetamine and THC. Not , no signs of UTI. mild leukocytosis, likely secondary to meth abuse. Potassium is onlymildly low 3.3, no indication for repletion in the ER. Patient ismedically cleared for evaluation by psychiatry. Psychiatry saw andevaluated the patient, [facility] However if patient continues to sober up, shemay be able to be discharged home once symptoms have improved as thiscould all be methamphetamine related. Tachycardia improved with bolus offluids. Patient not acutely agitated enough to require Ativan.Meth-related psychosis cleared. Patient no longer a slight HI, andtachycardia improved. Stable for discharge home. Resources for substanceabuse provided.The patient was DISCHARGED: Counseled patient regarding lab results ANDradiology results AND suspected diagnosis AND need for follow-up. Dischargedhome with verbal and written instructions. They were instructed to returnas needed for persistent or worsening symptoms or any new concerns.Condition at time of disposition: stableSIGNATURE: Sarkis Starkey (Res) Elida, UTSwdkqzfv15/08/18 0708Jaqui Gandhi MD06/24/18 1828 Normal [facility] Hemogram/Diffon 05-29-2018 Abs Immature Grans 0.04 thou/cmm Normal 0.00-0.05 [facility] Comment on above: Performed By: #### C BCD1 ####[address] [address] Abs. Baso 0.08 thou/cmm Normal 0.01-0.08 [facility] Comment on above: Performed By: #### C BCD1 ####[place] [address] Abs. Brewster 0.83 thou/cmm High 0.27-0.70 [facility] Comment on above: Performed By: #### C BCD1 ####[address] [address] Abs. Neut (ANC) 5.86 thou/cmm Normal 1.56-6.13 [facility] Comment on above: Performed By: #### C BCD1 ####[address] [address] Basophils/100 WBC Auto (Bld) 0.8 % Normal [facility] Comment on above: Performed By: #### C BCD1 ####[address] [address] Eosinophils Auto #/vol (Bld) 0.26 thou/cmm Normal 0.00-0.31 [facility] Comment on above: Performed By: #### C BCD1 ####[address] [address] Eosinophils/100 WBC Auto (Bld) 2.5 % Normal [facility] Comment on above: Performed By: #### C BCD1 ####[address] [address] Erythrocyte distribution width Auto Ratio (RBC) 13.6 % Normal 11.7-14.4 [facility] Comment on above: Performed By: #### C BCD1 ####[address] [address] Hematocrit Auto Volume Fraction (Bld) 43.9 % Normal 34.1-44.9 [facility] Comment on above: Performed By: #### C BCD1 ####[address] [address] Hemoglobin mass conc (Bld) 14.2 g/dL Normal 11.2-15.7 [facility] Comment on above: Performed By: #### C BCD1 ####[address] [address] Immature Grans 0.40 % Normal [facility] Comment on above: Performed By: #### C BCD1 ####[address] [address] Lymphocytes Auto #/vol (Bld) 3.50 thou/cmm Normal 1.18-3.74 [facility] Comment on above: Performed By: #### C BCD1 ####[address] [address] Lymphocytes/100 WBC Auto (Bld) 33.1 % Normal [facility] Comment on above: Performed By: #### C BCD1 ####[address] [address] MCH Auto Entitic mass (RBC) 28.3 pg Normal 25.6-32.2 [facility] Comment on above: Performed By: #### C BCD1 ####[place] [address] MCHC Auto mass conc (RBC) 32.3 % Normal 31.6-34.8 [facility] Comment on above: Performed By: #### C BCD1 ####[address] [address] MCV Auto Entitic volume (RBC) 87.5 fL Normal 79.4-94.8 [facility] Comment on above: Performed By: #### C BCD1 ####[address] [address] Monocytes/100 WBC Auto (Bld) 7.8 % Normal [facility] Comment on above: Performed By: #### C BCD1 ####[place] [address] Platelet mean volume Auto Entitic volume (Bld) 10.5 fL Normal 9.4-12.3 [facility] Comment on above: Performed By: #### C BCD1 ####[address] [address] Platelets Auto #/vol (Bld) 405 thou/cmm High 182-369 [facility] Comment on above: Performed By: #### C BCD1 ####[address] [address] RBC Auto #/vol (Bld) 5.02 mil/cmm Normal 3.93-5.22 [facility] Comment on above: Performed By: #### C BCD1 ####[address] [address] RDW SD 43.7 fl Normal 36.4-46.3 [facility] Comment on above: Performed By: #### C BCD1 ####[address] [address] Seg Neutrophil 55.4 % Normal [facility] Comment on above: Performed By: #### C BCD1 ####[address] [address] WBC Auto #/vol (Bld) 10.58 thou/cmm High 3.98-10.04 [facility] Comment on above: Performed By: #### C BCD1 ####[address] [address] MDRD GFRon 05-29-2018 GFR/1.73 sq M predicted among non-blacks MDRD vol rate/area (S/P/Bld) mL/min/{1.73_m2} Normal >60mL/min/1.73 m2 [facility] Comment on above: Result Comment: If t he patient is , multiply the result by 1.210. Performed By: #### G FR ####[address] [address] Ur/Serum Drug Screenon 05-29 Urine PCP Non-detected Normal Non-Detected [facility] Comment on above: Performed By: #### D RUG3 ####[address] [address] Urine THC see below Normal Non-Detected [facility] Comment on above: Result Comment: Dete cted (unconfirmed) Urine Drug Cutoff LevelsUrine Amphetamine 500 ng/mLUrine Barbiturate 200 ng/mLUrine Benzodiazepines 200 ng/mLUrine Cocaine 150 ng/mLUrine Phencyclidine (PCP) 25 ng/mLUrine Opiates 300 ng/mLUrine THC 50 ng/mLThe results of these analytes are unconfirmed and reportedqualitatively as detected or non-detected relative to the cutoffvalue. Detected results indicate the sample is likely to containthe analyte. Non-detected results indicate that either the sampledoes not contain the analyte or it is present in concentrations belowthe cutoff level. This drug screen should be used for medical diagnosticpurposes only. Performed By: #### D RUG3 ####[facility] [place], [place] [address] Urine Amphetamine see below Normal Non-Detected [facility] Comment on above: Result Comment: Dete cted (unconfirmed) Performed By: #### D RUG3 ####[address] [address] Urine Barbiturates Non-detected Normal Non-Detected [facility] Comment on above: Performed By: #### D RUG3 ####[address] [address] Urine Benzodiazepine Non-detected Normal Non-Detected [facility] Comment on above: Performed By: #### D RUG3 ####[place] [address] Urine Cocaine Metab Non-detected Normal Non-Detected [facility] Comment on above: Performed By: #### D RUG3 ####[place] [address] Urine Opiate Non-detected Normal Non-Detected [facility] Comment on above: Performed By: #### D RUG3 ####[address] [address] Acetaminophen mass conc <2.0 Low 10.0-30.0 [facility] Comment on above: Performed By: #### D RUG3 ####[place] [address] Serum Alcohol < 3 Normal [facility] Comment on above: Performed By: #### D RUG3 ####[place] [address] Serum Salicylate < 1.7 Low 2.8-20.0 [facility] Comment on above: Performed By: #### D RUG3 ####[place] [address] Urinalysis Routineon 018 Hyaline Cast 0.0-1 Normal 0.0-1.0 [facility] Comment on above: Performed By: #### U RIN2 ####[address] [address] Bacteria LM.HPF #/area (Urine sed) NONE Normal None [facility] Comment on above: Performed By: #### U RIN2 ####[place] [address] Ep Cells Urine 5.7 /hpf High 0.0-5.0 [facility] Comment on above: Performed By: #### U RIN2 ####[place] [address] RBC,Urine 3.0 /hpf Normal 0.0-5.0 [facility] Comment on above: Performed By: #### U RIN2 ####[place] [address] WBC, Urine 1.5 /hpf Normal 0.0-5.0 [facility] Comment on above: Performed By: #### U RIN2 ####[place] [address] Appearance Nom (U) CLEAR Normal [facility] Comment on above: Performed By: #### U RIN2 ####[place] [address] Bilirubin Urine see below Abnormal Negative [facility] Comment on above: Result Comment: Dete cted (Unable to confirm). Performed By: #### U RIN2 ####[place] [address] Color Nom (U) DK YELLOW Normal [facility] Comment on above: Performed By: #### U RIN2 ####[place] [address] Glucose Ql (U) Negative Normal Negative [facility] Comment on above: Performed By: #### U RIN2 ####[place] [address] Hemoglobin,Urine Negative Normal Negative [facility] Comment on above: Performed By: #### U RIN2 ####[place] [id number] Ketone Urine 40 mg/dL Abnormal Negative [facility] Comment on above: Performed By: #### U RIN2 ####[place] [address] Leukocytes Esterase Negative Normal Negative [facility] Comment on above: Performed By: #### U RIN2 ####[place] [address] Nitrites Urine Negative Normal Negative [facility] Comment on above: Performed By: #### U RIN2 ####[place] [address] pH Test strip (U) 6.0 [pH] Normal 5.0-8.0 [facility] Comment on above: Performed By: #### U RIN2 ####[place] [address] Protein Urine 30 mg/dL Abnormal Negative [facility] Comment on above: Performed By: #### U RIN2 ####[place] [address] Specific [place], Ur 1.034 Normal 1.005-1.030 [facility] Comment on above: Performed By: #### U RIN2 ####[place] [address] Urobilinogen,Ur 1.0 EU/dL Normal 0.0-1.0 [facility] Comment on above: Performed By: #### U RIN2 ####[place] [address] Urine HCG, Qual.on 8 HCG.beta subunit ( test) Ql (U) Negative Normal Negative [facility] Comment on above: Performed By: #### H CGUR ####[place] [address] Specific [place], Ur 1.034 High 1.005-1.030 [facility] Comment on above: Performed By: #### H CGUR ####[place] [address] Influenza virus A and B and SARS-CoV-2 (COVID-19) Ag panel - Upper respiratory specim SARS-CoV-2 (COVID-19) RNA LILIANE+probe Ql (Resp) [facility] Work Phone: Vital Signs Date Time Vital Sign Value Performing Clinician Facility 01-06-2025 10:29-0400 Body mass index (BMI) [Ratio] 35.32 kg/m2 Elizabeth Haines MD Work Phone: [facility] 01-06-2025 10:29-0400 Body weight 96.16 kg Elizabeth Haines MD Work Phone: [facility] 01-06-2025 10:29-0400 Diastolic blood pressure 80 mm[Hg] Elizabeth Haines MD Work Phone: [facility] 01-06-2025 10:29-0400 Systolic blood pressure 128 mm[Hg] Elizabeth Haines MD Work Phone: [facility] 12-26-2024 17:33-0400 Body height 162.56 cm Stephany Catalino DO Work Phone: [facility] 12-26-2024 17:33-0400 Body mass index (BMI) [Ratio] 35.9 kg/m2 Stephany Catalino DO Work Phone: 4(888)892-621727 [place] [address] 12-26-2024 17:33-0400 Body temperature 99.1 [degF] Stephany Catalino DO Work Phone: [facility] 12-26-2024 17:33-0400 Body weight 95.11 kg Stephany Catalino DO Work Phone: 8(111)617-457527 [place] [address] 12-26-2024 17:33-0400 Diastolic blood pressure 88 mm[Hg] Stephany Catalino DO Work Phone: [facility] 12-26-2024 17:33-0400 Heart rate 94 /min Stephany Catalino DO Work Phone: [facility] 12-26-2024 17:33-0400 Respiratory rate 18 /min Stephany Catalino DO Work Phone: [facility] 12-26-2024 17:33-0400 SaO2% (BldA) [Mass fraction] 98 % Stephany Catalino DO Work Phone: [facility] 12-26-2024 17:33-0400 Systolic blood pressure 139 mm[Hg] Stephany Catalino DO Work Phone: [facility] 12-20-2024 13:25-0400 Body mass index (BMI) [Ratio] 35.63 kg/m2 Krislyn Aberegg PA Work Phone: [facility] 12-20-2024 13:25-0400 Body temperature 98.1 [degF] Krislyn Aberegg PA Work Phone: [facility] 12-20-2024 13:25-0400 Body weight 97 kg Krislyn Aberegg PA Work Phone: [facility] 12-20-2024 13:25-0400 Diastolic blood pressure 74 mm[Hg] Krislyn Aberegg PA Work Phone: [facility] 12-20-2024 13:25-0400 Heart rate 118 /min Krislyn Aberegg PA Work Phone: [facility] 12-20-2024 13:25-0400 Respiratory rate 18 /min Krislyn Aberegg PA Work Phone: [facility] 12-20-2024 13:25-0400 SaO2% (BldA) [Mass fraction] 97 % Krislyn Aberegg PA Work Phone: [facility] 12-20-2024 13:25-0400 Systolic blood pressure 117 mm[Hg] Krislyn Aberegg PA Work Phone: [facility] 12-08-2024 12:48-0400 Body mass index (BMI) [Ratio] 35.44 kg/m2 Valentin Leahy APRN.CNP Work Phone: [facility] 12-08-2024 12:48-0400 Body temperature 98.29 [degF] Valentin Leahy APRN.[employer] Work Phone: [facility] 12-08-2024 12:48-0400 Body weight 96.5 kg Valentin [facility] [employer] Work Phone: [facility] 12-08-2024 12:48-0400 Diastolic blood pressure 83 mm[Hg] Valentin [facility] [employer] Work Phone: [facility] 12-08-2024 12:48-0400 Heart rate 86 /min Valentinluís Santizoyale [facility] [employer] Work Phone: [facility] 12-08-2024 12:48-0400 Respiratory rate 18 /min Vlaentin Cristianaleyale [facility] [employer] Work Phone: [facility] 12-08-2024 12:48-0400 SaO2% (BldA) [Mass fraction] 100 % Valentin Zendejasyale [facility] [employer] Work Phone: [facility] 12-08-2024 12:48-0400 Systolic blood pressure 121 mm[Hg] Valentin Santizoy[facility] [employer] Work Phone: [facility] 11-29-2024 09:16-0400 Body mass index (BMI) [Ratio] 35.26 kg/m2 Krislyn Aberegg PA Work Phone: [facility] 11-29-2024 09:16-0400 Body temperature 97.59 [degF] Krislyn Aberegg PA Work Phone: [facility] 11-29-2024 09:16-0400 Body weight 96 kg Krislyn Aberegg PA Work Phone: [facility] 11-29-2024 09:16-0400 Diastolic blood pressure 90 mm[Hg] Krislyn Aberegg PA Work Phone: [facility] 11-29-2024 09:16-0400 Heart rate 97 /min Krislyn Aberegg PA Work Phone: [facility] 11-29-2024 09:16-0400 Respiratory rate 18 /min Krislyn Aberegg PA Work Phone: [facility] 11-29-2024 09:16-0400 SaO2% (BldA) [Mass fraction] 97 % Krislyn Aberegg PA Work Phone: [facility] 11-29-2024 09:16-0400 Systolic blood pressure 112 mm[Hg] Krislyn Aberegg PA Work Phone: [facility] 09-27-2024 13:57-0400 Body temperature 98.2 [degF] Stephany Catalino DO Work Phone: 2(388)047-757927 [place] [address] 09-27-2024 13:57-0400 Diastolic blood pressure 78 mm[Hg] Stephany Catalino DO Work Phone: 0(646)935-228527 [place] [address] 09-27-2024 13:57-0400 Heart rate 78 /min Stephany Catalino DO Work Phone: 9(969)549-852427 [place] [address] 09-27-2024 13:57-0400 Respiratory rate 14 /min Stephany Catalino DO Work Phone: 9(416)926-237827 [place] [address] 09-27-2024 13:57-0400 SaO2% (BldA) [Mass fraction] 98 % Stephany Catalino DO Work Phone: 4(872)344-645227 [place] [address] 09-27-2024 13:57-0400 Systolic blood pressure 118 mm[Hg] Stephany Catalino DO Work Phone: 5(137)481-441227 [place] [address] 09-27-2024 09:11-0400 Body height 162.56 cm Stephany Catalino DO Work Phone: 0(720)764-010127 [place] [address] 09-27-2024 09:11-0400 Body mass index (BMI) [Ratio] 38 kg/m2 Stephany Catalino DO Work Phone: 9(486)038-288727 [place] [address] 09-27-2024 09:11-0400 Body weight 100.4 kg Stephany Catalino DO Work Phone: 1(571)287-425727 [place] [address] 09-19-2024 09:47-0400 Body mass index (BMI) [Ratio] 36.91 kg/m2 Krislyn Aberegg PA Work Phone: [facility] 09-19-2024 09:47-0400 Body temperature 98.29 [degF] Krislyn Aberegg PA Work Phone: [facility] 09-19-2024 09:47-0400 Body weight 100.5 kg Krislyn Aberegg PA Work Phone: [facility] 09-19-2024 09:47-0400 Diastolic blood pressure 80 mm[Hg] Krislyn Aberegg PA Work Phone: [facility] 09-19-2024 09:47-0400 Heart rate 118 /min Krislyn Aberegg PA Work Phone: [facility] 09-19-2024 09:47-0400 Respiratory rate 18 /min Krislyn Aberegg PA Work Phone: [facility] 09-19-2024 09:47-0400 SaO2% (BldA) [Mass fraction] 97 % Krislyn Aberegg PA Work Phone: [facility] 09-19-2024 09:47-0400 Systolic blood pressure 122 mm[Hg] Krislyn Aberegg PA Work Phone: [facility] 08-28-2024 18:28-0400 Body height 162.56 cm Stephany Catalino DO Work Phone: [facility] 08-28-2024 18:28-0400 Body mass index (BMI) [Ratio] 37.8 kg/m2 Stephany Catalino DO Work Phone: [facility] 08-28-2024 18:28-0400 Body temperature 98.1 [degF] Stephany Catalino DO Work Phone: [facility] 08-28-2024 18:28-0400 Body weight 99.79 kg Stephany Catalino DO Work Phone: [facility] 08-28-2024 18:28-0400 Diastolic blood pressure 82 mm[Hg] Stephany Catalino DO Work Phone: [facility] 08-28-2024 18:28-0400 Heart rate 55 /min Stephany Catalino DO Work Phone: [facility] 08-28-2024 18:28-0400 Respiratory rate 16 /min Stephany Catalino DO Work Phone: [facility] 08-28-2024 18:28-0400 SaO2% (BldA) [Mass fraction] 92 % Stephany Catalino DO Work Phone: [facility] 08-28-2024 18:28-0400 Systolic blood pressure 127 mm[Hg] Stephany Catalino DO Work Phone: [facility] 08-20-2024 12:11-0500 Body mass index (BMI) [Ratio] 37.83 kg/m2 Evy Mena [employer] Work Phone: [facility] 08-20-2024 12:11-0500 Body temperature 98.6 [degF] Evy Mena [employer] Work Phone: [facility] 08-20-2024 12:11-0500 Body weight 103 kg Evy Mena [employer] Work Phone: [facility] 08-20-2024 12:11-0500 Diastolic blood pressure 74 mm[Hg] Evy Mena [employer] Work Phone: [facility] 08-20-2024 12:11-0500 Heart rate 95 /min Evy Mena [employer] Work Phone: [facility] 08-20-2024 12:11-0500 Respiratory rate 16 /min Evy Mena [employer] Work Phone: [facility] 08-20-2024 12:11-0500 SaO2% (BldA) [Mass fraction] 98 % Evy Mena [employer] Work Phone: [facility] 08-20-2024 12:11-0500 Systolic blood pressure 105 mm[Hg] Evy San APRN.SUGAR [employer]ER Work Phone: [facility] 08-03-2024 13:42-0500 Body mass index (BMI) [Ratio] 38.02 kg/m2 Krislyn Aberegg PA Work Phone: [facility] 08-03-2024 13:42-0500 Body temperature 98.29 [degF] Krislyn Aberegg PA Work Phone: [facility] 08-03-2024 13:42-0500 Body weight 103.5 kg Krislyn Aberegg PA Work Phone: [facility] 08-03-2024 13:42-0500 Diastolic blood pressure 85 mm[Hg] Krislyn Aberegg PA Work Phone: [facility] 08-03-2024 13:42-0500 Heart rate 91 /min Krislyn Aberegg PA Work Phone: [facility] 08-03-2024 13:42-0500 Respiratory rate 18 /min Krislyn Aberegg PA Work Phone: [facility] 08-03-2024 13:42-0500 SaO2% (BldA) [Mass fraction] 99 % Krislyn Aberegg PA Work Phone: [facility] 08-03-2024 13:42-0500 Systolic blood pressure 129 mm[Hg] Krislyn Aberegg PA Work Phone: [facility] 06-17-2024 09:24-0500 Body mass index (BMI) [Ratio] 36.95 kg/m2 Yue Athy PA-C Work Phone: [facility] 06-17-2024 09:24-0500 Body temperature 98.01 [degF] Yue Athy PA-C Work Phone: [facility] 06-17-2024 09:24-0500 Body weight 100.6 kg Yue Athy PA-C Work Phone: [facility] 06-17-2024 09:24-0500 Diastolic blood pressure 85 mm[Hg] Yue Athy PA-C Work Phone: [facility] 06-17-2024 09:24-0500 Heart rate 105 /min Yue Athy PA-C Work Phone: [facility] 06-17-2024 09:24-0500 Respiratory rate 18 /min Yue Athy PA-C Work Phone: [facility] 06-17-2024 09:24-0500 SaO2% (BldA) [Mass fraction] 100 % Yue Athy PA-C Work Phone: [facility] 06-17-2024 09:24-0500 Systolic blood pressure 131 mm[Hg] Yue Athy PA-C Work Phone: [facility] 05-18-2024 19:48-0500 Body mass index (BMI) [Ratio] 38.7 kg/m2 Stephany Catalino DO Work Phone: [facility] 05-18-2024 19:48-0500 Body weight 102.4 kg Stephany Catalino DO Work Phone: [facility] 05-18-2024 16:16-0500 Body temperature 98.6 [degF] Stephany Catalino DO Work Phone: [facility] 05-18-2024 16:16-0500 Diastolic blood pressure 92 mm[Hg] Stephany Catalino DO Work Phone: [facility] 05-18-2024 16:16-0500 Heart rate 100 /min Stephany Catalino DO Work Phone: [facility] 05-18-2024 16:16-0500 Respiratory rate 16 /min Stephany Catalino DO Work Phone: [facility] 05-18-2024 16:16-0500 SaO2% (BldA) [Mass fraction] 99 % Stephany Catalino DO Work Phone: [facility] 05-18-2024 16:16-0500 Systolic blood pressure 129 mm[Hg] Stephany Bae DO Work Phone: [facility] 01-27-2024 14:01-0400 Body height 162.6 cm Luis Felipe Marie MD Work Phone: [facility] 01-27-2024 14:01-0400 Body mass index (BMI) [Ratio] 38.9 kg/m2 Luis Felipe Marie MD [facility] 01-27-2024 14:01-0400 Body weight 102.78 kg Luis Felipe Marie MD [facility] 01-27-2024 14:01-0400 Diastolic blood pressure 85 mm[Hg] Luis Felipe Marie MD [facility] 01-27-2024 14:01-0400 Heart rate 93 /min Luis Felipe Marie MD [facility] 01-27-2024 14:01-0400 Systolic blood pressure 118 mm[Hg] Luis Felipe Marie MD [facility] 01-17-2024 12:45-0400 Diastolic blood pressure 82 mm[Hg] Jun Cardenas MD Work Phone: [facility] 01-17-2024 12:45-0400 Heart rate 99 /min Jun Cardenas MD Work Phone: [facility] 01-17-2024 12:45-0400 Respiratory rate 20 /min Jun Cardenas MD Work Phone: [facility] 01-17-2024 12:45-0400 SaO2% (BldA) [Mass fraction] 99 % Jun Cardenas MD Work Phone: [facility] 01-17-2024 12:45-0400 Systolic blood pressure 128 mm[Hg] Jun [facility]as MD [facility] 01-17-2024 08:42-0400 Body temperature 98.1 [degF] Jun Cardenas MD Work Phone: [facility] 01-02-2024 10:58-0400 Body temperature 98.49 [degF] Karla Estrada [employer] Work Phone: [facility] 01-02-2024 10:58-0400 Diastolic blood pressure 74 mm[Hg] Karla Estrada [employer] Work Phone: [facility] 01-02-2024 10:58-0400 Heart rate 90 /min Karla Estrada APRN-SUGAR SAMPLER Work Phone: [facility] 01-02-2024 10:58-0400 Respiratory rate 18 /min Karla Estrada [employer] Work Phone: [facility] 01-02-2024 10:58-0400 SaO2% (BldA) [Mass fraction] 99 % Karla Estrada APRN-SUGAR [employer]PLER Work Phone: [facility] 01-02-2024 10:58-0400 Systolic blood pressure 103 mm[Hg] Karla Estrada [employer] [facility] 10-14-2023 23:00-0400 Respiratory rate 16 /min [facility] 10-14-2023 19:15-0400 Body height 162.56 cm [facility] 10-14-2023 19:15-0400 Body mass index (BMI) [Ratio] 37 kg/m2 [facility] 10-14-2023 19:15-0400 Body temperature 98 [degF] [facility] 10-14-2023 19:15-0400 Body weight 98.06 kg [facility] 10-14-2023 19:15-0400 Diastolic blood pressure 90 mm[Hg] [facility] 10-14-2023 19:15-0400 Heart rate 111 /min [facility] 10-14-2023 19:15-0400 SaO2% (BldA) [Mass fraction] 100 % [facility] 10-14-2023 19:15-0400 Systolic blood pressure 132 mm[Hg] [facility] 10-12-2023 08:18-0400 Body mass index (BMI) [Ratio] 37.1 kg/m2 Elle Hathaway APRN.[employer]GAR SAM[employer]ER Work Phone: [facility] 10-12-2023 08:18-0400 Body temperature 97.11 [degF] Elle Hathaway APRN.SUGAR [employer]ER Work Phone: [facility] 10-12-2023 08:18-0400 Body weight 101 kg Elle Hathaway APRN.[employer]ER Work Phone: [facility] 10-12-2023 08:18-0400 Diastolic blood pressure 78 mm[Hg] Elle Hathaway APRN.SUGAR [employer]ER Work Phone: [facility] 10-12-2023 08:18-0400 Heart rate 99 /min Elle Hathaway APRN.SUGAR [employer]ER Work Phone: [facility] 10-12-2023 08:18-0400 Respiratory rate 21 /min Elle Hathaway APRN.SUGAR SAMPLER Work Phone: [facility] 10-12-2023 08:18-0400 SaO2% (BldA) [Mass fraction] 98 % Elle Hathaway APRN.SUGAR [employer]PLER Work Phone: [facility] 10-12-2023 08:18-0400 Systolic blood pressure 112 mm[Hg] Elle Hathaway APRN.SUGAR SAMPLER Work Phone: [facility] 09-29-2023 14:37-0400 Body temperature 99 [degF] Martha Hernandezler-Rylan [employer] Work Phone: [facility] 09-29-2023 14:37-0400 Body weight 97.8 kg Martha Pradavidler-Wood [employer] Work Phone: [facility] 09-29-2023 14:37-0400 Diastolic blood pressure 78 mm[Hg] Martha Praisler-Wood [employer] Work Phone: [facility] 09-29-2023 14:37-0400 Heart rate 110 /min Martha Pradavidler-Wood [employer] Work Phone: [facility] 09-29-2023 14:37-0400 Respiratory rate 18 /min Marthajay Aguillon [employer] Work Phone: [facility] 09-29-2023 14:37-0400 SaO2% (BldA) [Mass fraction] 99 % Marthajay Aguillon [employer] Work Phone: [facility] 09-29-2023 14:37-0400 Systolic blood pressure 110 mm[Hg] Marthajay Aguillon [employer] Work Phone: [facility] 09-10-2023 10:40-0400 Body height 162.6 cm No Generic Provider [facility] 09-10-2023 10:40-0400 Body mass index (BMI) [Ratio] 41.2 kg/m2 No Generic Provider [facility] 09-10-2023 10:40-0400 Body temperature 99 [degF] No Generic Provider [facility] 09-10-2023 10:40-0400 Body weight 108.86 kg No Generic Provider [facility] 09-10-2023 10:40-0400 Diastolic blood pressure 76 mm[Hg] No Generic Provider [facility] 09-10-2023 10:40-0400 Heart rate 91 /min No Generic Provider [facility] 09-10-2023 10:40-0400 Respiratory rate 16 /min No Generic Provider [facility] 09-10-2023 10:40-0400 SaO2% (BldA) [Mass fraction] 97 % No Generic Provider [facility] 09-10-2023 10:40-0400 Systolic blood pressure 126 mm[Hg] No Generic Provider [facility] 06-24-2023 09:53-0500 Body temperature 98.49 [degF] Isa Morrow MD Work Phone: [facility] 06-24-2023 09:53-0500 Diastolic blood pressure 70 mm[Hg] Isa Morrow MD Work Phone: [facility] 06-24-2023 09:53-0500 Heart rate 91 /min Isa Morrow MD Work Phone: [facility] 06-24-2023 09:53-0500 Respiratory rate 20 /min Isa Morrow MD Work Phone: [facility] 06-24-2023 09:53-0500 SaO2% (BldA) [Mass fraction] 99 % Isa Morrow MD Work Phone: [facility] 06-24-2023 09:53-0500 Systolic blood pressure 127 mm[Hg] Isa Morrow MD Work Phone: [facility] 03-11-2023 02:19-0400 Body height 162.5 cm Pcp Unknown [facility] 03-11-2023 02:19-0400 Body temperature 98.06 [degF] Pcp Unknown [facility] 03-11-2023 02:19-0400 Body weight 108 kg Pcp Unknown [facility] 03-11-2023 02:19-0400 Diastolic blood pressure 68 mm[Hg] Pcp Unknown [facility] 03-11-2023 02:19-0400 Heart rate 89 /min Pcp Unknown [facility] 03-11-2023 02:19-0400 Respiratory rate 16 /min Pcp Unknown [facility] 03-11-2023 02:19-0400 SaO2% (BldA) [Mass fraction] 98 % Pcp Unknown [facility] 03-11-2023 02:19-0400 Systolic blood pressure 102 mm[Hg] Pcp Unknown [facility] 03-02-2023 20:26-0400 Diastolic blood pressure 91 mm[Hg] Pcp Unknown [facility] 03-02-2023 20:26-0400 Heart rate 72 /min Pcp Unknown [facility] 03-02-2023 20:26-0400 Respiratory rate 16 /min Pcp Unknown [facility] 03-02-2023 20:26-0400 SaO2% (BldA) [Mass fraction] 100 % Pcp Unknown [facility] 03-02-2023 20:26-0400 Systolic blood pressure 125 mm[Hg] Pcp Unknown [facility] 03-02-2023 13:090400 Body height 162.5 cm Pcp Unknown [facility] 03-02-2023 13:09-0400 Body temperature 98.24 [degF] [facility] [facility]23 13:09-0400 Body weight 108 kg Pcp Unknown [facility] 02-16-2023 19:51-0400 Body temperature 98.42 [degF] Pcp Unknown [facility] 02-16-2023 19:51-0400 Diastolic blood pressure 80 mm[Hg] Pcp Unknown [facility] 02-16-2023 19:51-0400 Heart rate 100 /min Pcp Unknown [facility] 02-16-2023 19:51-0400 Respiratory rate 16 /min Pcp Unknown [facility] 02-16-2023 19:51-0400 SaO2% (BldA) [Mass fraction] 98 % Pcp Unknown [facility] 02-16-2023 19:51-0400 Systolic blood pressure 125 mm[Hg] Pcp Unknown [facility] 01-20-2023 12:05-0400 Body height 162.6 cm Isidro Nicole APRN, CNP Work Phone: [facility] Work Phone: 01-20-2023 12:05-0400 Body temperature 98.6 [degF] Isidro Nicole APRN, CNP Work Phone: [facility] Work Phone: 01-20-2023 12:05-0400 Body weight 106.14 kg Isidro Nicole APRN, CNP Work Phone: [facility] Work Phone: 01-20-2023 12:05-0400 Diastolic blood pressure 87 mm[Hg] Isidro Nicole APRN, CNP Work Phone: [facility] Work Phone: 01-20-2023 12:05-0400 Heart rate 98 /min Isidro Nicole APRN, CNP Work Phone: [facility] Work Phone: 01-20-2023 12:05-0400 Respiratory rate 16 /min Isidro Nicole APRN, CNP Work Phone: [facility] Work Phone: 01-20-2023 12:05-0400 SaO2% (BldA) [Mass fraction] 98 % Isidro Nicole APRN, CNP Work Phone: [facility] Work Phone: 01-20-2023 12:05-0400 Systolic blood pressure 121 mm[Hg] Isidro Nicole APRNSUGAR SAMPLER Work Phone: [facility] Work Phone: 01-08-2023 14:24-0400 Body height 162.6 cm Isidro Nicole APRNSUGAR SAMPLER Work Phone: [facility] Work Phone: 01-08-2023 14:24-0400 Body temperature 99 [degF] Isidro Nicole APRN, CNP Work Phone: [facility] Work Phone: 01-08-2023 14:24-0400 Body weight 107.96 kg Isidro Nicole APRN, CNP Work Phone: [facility] Work Phone: 01-08-2023 14:24-0400 Diastolic blood pressure 89 mm[Hg] Isidro Nicole APRN, CNP Work Phone: [facility] Work Phone: 01-08-2023 14:24-0400 Heart rate 94 /min Isidro Nicole APRN, CNP Work Phone: [facility] Work Phone: 01-08-2023 14:24-0400 Respiratory rate 16 /min Isidro Nicole APRNSUGAR SAMPLER Work Phone: [facility] Work Phone: 01-08-2023 14:24-0400 SaO2% (BldA) [Mass fraction] 98 % Isidro Nicole APRN, CNP Work Phone: [facility] Work Phone: 01-08-2023 14:24-0400 Systolic blood pressure 151 mm[Hg] Isidro White BARREL COATER,SUGAR SAMPLER Work Phone: [facility] Work Phone: 12-22-2022 08:57-0400 Body height 162.6 cm Isidro Nicole APRN, CNP Work Phone: [facility] Work Phone: 12-22-2022 08:57-0400 Body temperature 98.01 [degF] Isidro Nicole APRN, CNP Work Phone: [facility] Work Phone: 12-22-2022 08:57-0400 Body weight 112.95 kg Isidro Nicole APRN, CNP Work Phone: [facility] Work Phone: 12-22-2022 08:57-0400 Diastolic blood pressure 99 mm[Hg] Isidro Nicole APRN, CNP Work Phone: [facility] Work Phone: 12-22-2022 08:57-0400 Heart rate 101 /min Isidro Nicole APRN, CNP Work Phone: [facility] Work Phone: 12-22-2022 08:57-0400 Respiratory rate 16 /min Isidro Nicole APRN, CNP Work Phone: [facility] Work Phone: 12-22-2022 08:57-0400 SaO2% (BldA) [Mass fraction] 98 % Isidro Nicole APRN, CNP Work Phone: [facility] Work Phone: 12-22-2022 08:57-0400 Systolic blood pressure 122 mm[Hg] Isidro Nicole APRN, CNP Work Phone: [facility] Work Phone: 12-18-2022 10:44-0400 Body height 162.6 cm Isidro Nicole APRN, CNP Work Phone: [facility] Work Phone: 12-18-2022 10:44-0400 Body temperature 99 [degF] Isidro Nicole APRN, CNP Work Phone: [facility] Work Phone: 12-18-2022 10:44-0400 Body weight 107.96 kg Isidro Nicole APRN, CNP Work Phone: [facility] Work Phone: 12-18-2022 10:44-0400 Diastolic blood pressure 88 mm[Hg] Isidro Nicole APRN, CNP Work Phone: [facility] Work Phone: 12-18-2022 10:44-0400 Heart rate 98 /min Isidro Nicole APRN, CNP Work Phone: [facility] Work Phone: 12-18-2022 10:44-0400 Respiratory rate 16 /min Isidro Nicole APRN, CNP Work Phone: [facility] Work Phone: 12-18-2022 10:44-0400 SaO2% (BldA) [Mass fraction] 100 % Isidro Nicole APRN, CNP Work Phone: [facility] Work Phone: 12-18-2022 10:44-0400 Systolic blood pressure 122 mm[Hg] Isidro Nicole APRN, CNP Work Phone: [facility] Work Phone: 12-12-2022 08:28-0400 Body height 162.56 cm Referring Provider Unknown [id number] [address] [place] Work Phone: 12-12-2022 08:28-0400 Body mass index (BMI) [Ratio] 40.85 kg/m2 Referring Provider Unknown [id number] [address] [place] Work Phone: 12-12-2022 08:28-0400 Body surface area Derived from formula 2.11 m2 Referring Provider Unknown [id number] [address] [place] Work Phone: 12-12-2022 08:28-0400 Body weight 107.96 kg Referring Provider Unknown [id number] [address] [place] Work Phone: 12-12-2022 08:28-0400 Diastolic blood pressure 72 mm[Hg] Referring Provider Unknown [id number] [address] [place] Work Phone: 12-12-2022 08:28-0400 Heart rate 83 /min Referring Provider Unknown [id number] [address] [place] Work Phone: 12-12-2022 08:28-0400 Systolic blood pressure 108 mm[Hg] Referring Provider Unknown [id number] [address] [place] Work Phone: 12-12-2022 08:28-0400 0 1 Referring Provider Unknown [id number] [address] [place] Work Phone: Comment on above: [facility] 11-20-2022 09:01-0400 Body height 162.6 cm Isidro Nicole APRN, CNP Work Phone: [facility] Work Phone: 11-20-2022 09:01-0400 Body temperature 98.01 [degF] Isidro Nicole APRN, CNP Work Phone: [facility] Work Phone: 11-20-2022 09:01-0400 Body weight 105.87 kg Isidro Nicole APRN, CNP Work Phone: [facility] Work Phone: 11-20-2022 09:01-0400 Diastolic blood pressure 87 mm[Hg] Isidro Nicole APRN, CNP Work Phone: [facility] Work Phone: 11-20-2022 09:01-0400 Heart rate 100 /min Isidro Nicole APRN, CNP Work Phone: [facility] Work Phone: 11-20-2022 09:01-0400 Respiratory rate 16 /min Isidro Nicole APRN, CNP Work Phone: [facility] Work Phone: 11-20-2022 09:01-0400 SaO2% (BldA) [Mass fraction] 99 % Isidro Nicole APRN, CNP Work Phone: [facility] Work Phone: 11-20-2022 09:01-0400 Systolic blood pressure 120 mm[Hg] Isidro Nicole APRNSUGAR SAMPLER Work Phone: [facility] Work Phone: 10-22-2022 15:44-0400 Body height 162.6 cm Isidro Nicole APRN, CNP Work Phone: [facility] Work Phone: 10-22-2022 15:44-0400 Body temperature 98.01 [degF] Isidro Nicole APRN, CNP Work Phone: [facility] Work Phone: 10-22-2022 15:44-0400 Body weight 106.14 kg Isidro Nicole APRN, CNP Work Phone: [facility] Work Phone: 10-22-2022 15:44-0400 Diastolic blood pressure 84 mm[Hg] Isidro Nicole APRN, CNP Work Phone: [facility] Work Phone: 10-22-2022 15:44-0400 Heart rate 91 /min Isidro Nicole APRN, CNP Work Phone: [facility] Work Phone: 10-22-2022 15:44-0400 SaO2% (BldA) [Mass fraction] 99 % Isidro Nicole APRN, CNP Work Phone: [facility] Work Phone: 10-22-2022 15:44-0400 Systolic blood pressure 106 mm[Hg] Isidro Corey BARREL COATERSUGAR SAMPLER Work Phone: [facility] Work Phone: 09-18-2022 12:02-0400 Body height 162.6 cm Isidro Nicole BARREL COATERHAROON Work Phone: [facility] Work Phone: 09-18-2022 12:02-0400 Body temperature 98.01 [degF] Isidro Nicole [employer] COATERHAROON Work Phone: [facility] Work Phone: 09-18-2022 12:02-0400 Body weight 105.87 kg Isidro Nicole APRNHAROON Work Phone: [facility] Work Phone: 09-18-2022 12:02-0400 Diastolic blood pressure 79 mm[Hg] Isidro Nicole [employer] COATERHAROON Work Phone: [facility] Work Phone: 09-18-2022 12:02-0400 Heart rate 92 /min Isidro Nicole BAR[employer] COATERHAROON Work Phone: [facility] Work Phone: 09-18-2022 12:02-0400 Respiratory rate 16 /min Isidro Corey BARREL COATERHAROON Work Phone: [facility] Work Phone: 09-18-2022 12:02-0400 Systolic blood pressure 113 mm[Hg] Isidro Nicole [employer] COATERHAROON Work Phone: [facility] Work Phone: 08-22-2022 08:28-0500 Body temperature 97.8 [degF] Dr. Nanci Corral Work Phone: [facility] 08-22-2022 08:28-0500 Diastolic blood pressure 73 mm[Hg] Dr. Nanci Corral Work Phone: [facility] 08-22-2022 08:28-0500 Heart rate 90 /min Dr. Nanci Corral Work Phone: [facility] 08-22-2022 08:28-0500 Respiratory rate 16 /min Dr. Nanci Corral Work Phone: [facility] 08-22-2022 08:28-0500 SaO2% (BldA) [Mass fraction] 98 % Dr. Nanci Corral Work Phone: [facility] 08-22-2022 08:28-0500 Systolic blood pressure 106 mm[Hg] Dr. Nanci Corral Work Phone: [facility] 08-19-2022 10:12-0500 Body height 162.[address] Nanci Corral Work Phone: [facility] 08-19-2022 10:12-0500 Body weight 105.[address] Nanci Corral Work Phone: [facility] 08-18-2022 22:23-0500 Body mass index (BMI) [Ratio] 18.1 kg/m2 Dr. Nanci Corral Work Phone: [facility] 08-18-2022 21:15-0500 Heart rate 125 /min [facility] 08-18-2022 21:14-0500 Body temperature 98 [degF] [facility] 08-18-2022 21:14-0500 Diastolic blood pressure 99 mm[Hg] [facility] 08-18-2022 21:14-0500 Respiratory rate 18 /min [facility] 08-18-2022 21:14-0500 SaO2% (BldA) [Mass fraction] 98 % [facility] 08-18-2022 21:14-0500 Systolic blood pressure 141 mm[Hg] [facility] 08-18-2022 18:42-0500 Body height 162.56 cm [facility] 08-18-2022 18:42-0500 Body mass index (BMI) [Ratio] 39.9 kg/m2 [facility] 08-18-2022 18:42-0500 Body weight 105.5 kg [facility] 07-24-2022 10:42-0500 Body temperature 98.29 [degF] Elle Hathaway APRN.CNP Work Phone: [facility] 07-24-2022 10:42-0500 Body weight 108.5 kg Elle Hathaway APRN.SUGAR SAMPLER Work Phone: [facility] 07-24-2022 10:42-0500 Diastolic blood pressure 76 mm[Hg] Elle Hathaway APRN.SUGAR SAMPLER Work Phone: [facility] 07-24-2022 10:42-0500 Heart rate 128 /min Elle Hathaway APRN.SUGAR SAMPLER Work Phone: [facility] 07-24-2022 10:42-0500 Respiratory rate 18 /min Ellemayra Hathaway APRN.SUGAR SAMPLER Work Phone: [facility] 07-24-2022 10:42-0500 SaO2% (BldA) [Mass fraction] 97 % Elle Hathaway APRN.SUGAR SAMPLER Work Phone: [facility] 07-24-2022 10:42-0500 Systolic blood pressure 122 mm[Hg] Elle Hathaway APRN.SUGAR SAMPLER Work Phone: [facility] 06-08-2022 15:09-0500 Diastolic blood pressure 75 mm[Hg] [facility] 06-08-2022 15:09-0500 Heart rate 96 /min [facility] 06-08-2022 15:09-0500 Respiratory rate 16 /min [facility] 06-08-2022 15:09-0500 SaO2% (BldA) [Mass fraction] 98 % [facility] 06-08-2022 15:09-0500 Systolic blood pressure 118 mm[Hg] [facility] 06-08-2022 12:19-0500 Body mass index (BMI) [Ratio] 42.7 kg/m2 [facility] 06-08-2022 12:19-0500 Body temperature 97.3 [degF] [facility] 06-08-2022 12:19-0500 Body weight 112.94 kg [facility] 06-07-2022 22:07-0500 Diastolic blood pressure 76 mm[Hg] [facility] 06-07-2022 22:07-0500 Heart rate 84 /min [facility] 06-07-2022 22:07-0500 Respiratory rate 18 /min [facility] 06-07-2022 22:07-0500 Systolic blood pressure 134 mm[Hg] [facility] 06-07-2022 18:10-0500 Body temperature 99.4 [degF] [facility] 06-07-2022 18:10-0500 SaO2% (BldA) [Mass fraction] 98 % [facility] 06-07-2022 18:08-0500 Body height 162.56 cm [facility] Work Phone: 06-07-2022 18:08-0500 Body mass index (BMI) [Ratio] 42.7 kg/m2 [facility] 06-07-2022 18:08-0500 Body weight 112.98 kg [facility] 04-16-2022 16:54-0400 Body temperature 98.49 [degF] Yue Athy PA-C Work Phone: [facility] 04-16-2022 16:54-0400 Body weight 115.21 kg Yue Athy PA-C Work Phone: [facility] 04-16-2022 16:54-0400 Diastolic blood pressure 68 mm[Hg] Yue Athy PA-C Work Phone: [facility] 04-16-2022 16:54-0400 Heart rate 116 /min Yue Athy PA-C Work Phone: [facility] 04-16-2022 16:54-0400 Respiratory rate 16 /min Yue Athy PA-C Work Phone: [facility] 04-16-2022 16:54-0400 SaO2% (BldA) [Mass fraction] 98 % Yue Athy PA-C Work Phone: [facility] 04-16-2022 16:54-0400 Systolic blood pressure 124 mm[Hg] Yue Athy PA-C Work Phone: [facility] 03-23-2022 11:21-0400 Body temperature 98.01 [degF] Yue Athy PA-C Work Phone: [facility] 03-23-2022 11:21-0400 Body weight 116.3 kg Yue Athy PA-C Work Phone: [facility] 03-23-2022 11:21-0400 Diastolic blood pressure 80 mm[Hg] Yue Athy PA-C Work Phone: [facility] 03-23-2022 11:21-0400 Heart rate 91 /min Yue Athy PA-C Work Phone: [facility] 03-23-2022 11:21-0400 Respiratory rate 18 /min Yue Athy PA-C Work Phone: [facility] 03-23-2022 11:21-0400 SaO2% (BldA) [Mass fraction] 98 % Yue Athy PA-C Work Phone: [facility] 03-23-2022 11:21-0400 Systolic blood pressure 122 mm[Hg] Yue Athy PA-C Work Phone: [facility] 08-09-2021 11:31-0500 Body height 162.56 cm Aisha Mendoza NP Work Phone: [facility] [employer] [facility] 08-09-2021 11:31-0500 Body mass index (BMI) [Ratio] 41.54 kg/m2 Aisha Mendoza NP Work Phone: [facility] [employer] [facility] 08-09-2021 11:31-0500 Body surface area Derived from formula 2.23 m2 Aisha Mendoza NP Work Phone: [facility] [employer] [facility] 08-09-2021 11:31-0500 Body temperature 97.2 [degF] Aisha Mendoza NP Work Phone: [facility] [employer] [facility] 08-09-2021 11:31-0500 Body weight 109.77 kg Aisha Mendoza NP Work Phone: [facility] [employer] [facility] 08-09-2021 11:31-0500 Diastolic blood pressure 91 mm[Hg] Aisha Vanentine EXPOSURE MACHINE OPERATOR Work Phone: [facility] [employer] [facility] 08-09-2021 11:31-0500 Heart rate 99 /min Aisha Veleze EXPOSURE MACHINE OPERATOR Work Phone: [facility] [employer] [facility] 08-09-2021 11:31-0500 Respiratory rate 14 /min Aisha Mendoza EXPOSURE MACHINE OPERATOR Work Phone: [facility] [employer] [facility] 08-09-2021 11:31-0500 SaO2% (BldA) [Mass fraction] 93 % Aisha Veleze EXPOSURE MACHINE OPERATOR Work Phone: [facility] [employer] [facility] 08-09-2021 11:31-0500 Systolic blood pressure 133 mm[Hg] Aisha Veleze EXPOSURE MACHINE OPERATOR [facility] Encounters Encounter Date Encounter Type Care Provider Facility Start: 01-06-2025 End: 01-06-2025 Patient encounter procedure Elizabeth Haines MD Work Phone: OB/Gynecology Comment on above: Screen for STD (sexu ally transmitted disease) (Primary Dx); Vaginal discharge; Dysuria; Moodiness Start: 01-06-2025 End: 01-06-2025 ambulatory ELIZABETH HAINES Facility:[facility] Start: 12-29-2024 End: 12-29-2024 Telephone encounter Mark Schwarz APRN.SUGAR SAMPLER Work Phone: OB/Gynecology Comment on above: Patient Question Start: 12-26-2024 End: 12-26-2024 Emergency department patient visit Stephany Bae DO Work Phone: -Emergency Department Work Phone: Start: 12-23-2024 End: 12-23-2024 Follow-up encounter Valentin Leahy APRN.SUGAR SAMPLER Work Phone: [facility] Comment on above: Results Start: 12-20-2024 End: 12-20-2024 Patient encounter procedure Nathaniel YOUSSEF Work Phone: [facility] Comment on above: Dysuria (Primary Dx) ; Vaginal discharge Start: 12-20-2024 End: 12-20-2024 ambulatory NATHANIEL OMRALES Facility:[facility] Start: 12-09-2024 End: 12-09-2024 Follow-up encounter Martha Aguillon APRN.SUGAR SAMPLER Work Phone: [facility] Start: 12-08-2024 End: 12-08-2024 Office outpatient visit 25 minutes Valentin Leahy APRN.SUGAR SAMPLER Work Phone: [facility] Comment on above: Vaginal discharge (P rimary Dx); Cat scratch Start: 12-08-2024 End: 12-08-2024 ambulatory VALENTIN LEAHY Facility:[facility] Start: 11-30-2024 End: 12-02-2024 Follow-up encounter Martha Aguillon APRN.SUGAR SAMPLER Work Phone: [facility] Comment on above: Results Start: 11-29-2024 End: 11-29-2024 Patient encounter procedure Nathaniel YOUSSEF Work Phone: [facility] Comment on above: Screening for STD (s exually transmitted disease) (Primary Dx); Burning with urination; Acute bilateral low back pain without sciatica Start: 11-29-2024 End: 11-29-2024 ambulatory NATHANIEL MORALES Facility:[facility] Start: 09-27-2024 End: 09-27-2024 Emergency department patient visit Stephany Bae DO Work Phone: -Emergency Department Work Phone: Start: 09-20-2024 End: 09-20-2024 Follow-up encounter Gregor Day APRN.SUGAR SAMPLER Work Phone: [facility] Start: 09-19-2024 End: 09-19-2024 ambulatory ELIZABETH HAINES Facility:[facility] Start: 09-19-2024 End: 09-19-2024 Patient encounter procedure Nathaniel YOUSSEF Work Phone: [facility] Comment on above: Missed menses (Prima ry Dx); Vaginal discharge Start: 08-28-2024 End: 08-28-2024 Emergency department patient visit Stephany Bae Work Phone: -Emergency Department Work Phone: Start: 08-21-2024 End: 08-21-2024 Follow-up encounter Elle Hathaway APRN.SUGAR SAMPLER Work Phone: [facility] Start: 08-20-2024 End: 08-20-2024 ambulatory [facility] Facility:[facility] Start: 08-20-2024 End: 08-20-2024 Patient encounter procedure Evy San APRN.SUGAR SAMPLER Work Phone: [facility] Comment on above: Secondary amenorrhea (Primary Dx); Exposure to STD; Acute vaginitis Start: 08-03-2024 End: 08-03-2024 Patient encounter procedure Nathaniel YOUSSEF Work Phone: [facility] Comment on above: Dysuria (Primary Dx) ; Vaginal discharge Start: 08-03-2024 End: 08-03-2024 ambulatory [facility] Facility:[facility] Start: 08-03-2024 End: 08-04-2024 Follow-up encounter Nathaniel YOUSSEF Work Phone: [facility] Start: 06-28-2024 End: 06-28-2024 Patient encounter procedure Stephany Bae DO -Berta Garcia Start: 06-28-2024 End: 06-28-2024 ambulatory Stephany Bae [facility] Facility:[facility] Start: 06-18-2024 End: 06-18-2024 Telephone encounter Evy San APRN.SUGAR SAMPLER Work Phone: [facility] Comment on above: Erroneous encounter- disregard Start: 06-17-2024 End: 06-17-2024 ambulatory [facility] Facility:[facility] Start: 06-17-2024 End: 06-17-2024 Patient encounter procedure Yue Resendiz PA-C Work Phone: [facility] Comment on above: Vaginal discharge (P rimary Dx) Start: 05-18-2024 End: 05-18-2024 Emergency department patient visit Dr. Etta Nayak DO -Emergency Department Work Phone: Start: 04-06-2024 End: 04-06-2024 ambulatory Stephany Bae C Facility:[facility] Start: 03-24-2024 End: 03-24-2024 Emergency department patient visit [facility] Facility:[facility] Start: 02-29-2024 End: 02-29-2024 Emergency department patient visit [facility] Facility:[facility] Start: 02-25-2024 End: 02-25-2024 ambulatory Nissa Chance [facility] Care Management/Patient Access Start: 02-25-2024 End: 02-25-2024 Patient encounter procedure Nissa Fletcher [facility] Care Management/Patient Access Comment on above: APPOINTMENT SCHEDULI NG Start: 02-16-2024 End: 02-16-2024 Telephone encounter Luis Felipe Marie MD Work Phone: [facility] Obstetrics/Gynecolog y Start: 02-14-2024 End: 02-14-2024 Emergency department patient visit UNKNOWN PROVIDER Facility:[facility] Start: 02-12-2024 End: 02-12-2024 Telephone encounter Luis Felipe Marie MD Work Phone: [facility] Obstetrics/Gynecolog y Start: 02-11-2024 End: 02-11-2024 ambulatory UNKNOWN PROVIDER Facility:[facility] Start: 02-11-2024 End: 02-11-2024 Subsequent hospital visit by physician Op Ultrasound 1 [facility] Radiology Comment on above: Threatened (HCC) Start: 02-09-2024 End: 02-09-2024 Telephone encounter Luis Felipe Marie MD Work Phone: [facility] Obstetrics/Gynecolog y Start: 02-05-2024 End: 02-05-2024 Telephone encounter Kristel Leslie RN [facility] Line Comment on above: Discuss results test /procedures Start: 02-04-2024 End: 02-04-2024 Clinical Support Pathology Provider [facility] Pathology Comment on above: Arrived Start: 02-03-2024 End: 02-03-2024 Telephone encounter Luis Felipe Marie MD Work Phone: [facility] Obstetrics/Gynecolog y Start: 02-03-2024 End: 02-03-2024 ambulatory UNKNOWN PROVIDER Facility:[facility] Start: 02-03-2024 End: 02-03-2024 Subsequent hospital visit by physician Op Ultrasound 3 [facility] Radiology Comment on above: High risk , antepartum (HCC) Start: 01-27-2024 End: 01-27-2024 Clinical Support Pathology Provider [facility] Pathology Comment on above: Arrived Start: 01-27-2024 End: 01-27-2024 Office outpatient new 45 minutes Luis Felipe Marie MD Work Phone: [facility] Obstetrics/Gynecolog y Comment on above: High risk , antepartum (HCC) (Primary Dx); Body mass index (BMI) 38.0-38.9, adult High risk , antepartum (HCC) (Primary Dx) Start: 01-27-2024 End: 01-27-2024 ambulatory UNKNOWN PROVIDER Facility:[facility] Start: 01-20-2024 End: 01-20-2024 ambulatory Roxann LEON Work Phone: [facility] [email or web address] Start: 01-20-2024 End: 01-20-2024 Coordination of care plan Roxann LENO Work Phone: [facility] [email or web address] Comment on above: Care Coordination Start: 01-18-2024 End: 01-18-2024 ambulatory Nissa Fletcher [facility] Care Management/Patient Access Start: 01-18-2024 End: 01-18-2024 Patient encounter procedure Nissa Fletcher [facility] Care Management/Patient Access Comment on above: APPOINTMENT SCHEDULI NG; Outreach Start: 01-17-2024 End: 01-17-2024 Emergency department patient visit Jun Cardenas MD Work Phone: [facility] Emergency Medicine Comment on above: vaginal pain (Was tx for std and still feels uncomfortable, denies d/c or bleeding, states OB but not sure how far, ) Start: 01-17-2024 Emergency department patient visit UNKNOWN PROVIDER Facility:[facility] Start: 01-02-2024 End: 01-02-2024 Emergency department patient visit Karla Estrada FOSTER-SUGAR SAMPLER Work Phone: [facility] Emergency Medicine Comment on above: Test; Gene ralized redness/erythema/rash Start: 10-27-2023 End: 10-27-2023 Telephone encounter Peggy Gould RN [facility] Line Comment on above: Discuss results test /procedures Arrived Start: 10-27-2023 ambulatory UNKNOWN PROVIDER Facili ty:[facility] Start: 10-26-2023 ambulatory [facility] Care Management/Patient Access Start: 10-26-2023 [facility] Comment on above: Care Coordination; A ppointment Confirmation Start: 10-25-2023 Telephone encounter Thania Rey RN [facility] Line Comment on above: Discuss results test /procedures Start: 10-23-2023 End: 10-23-2023 Emergency department patient visit UNKNOWN PROVIDER Facility:[facility] Start: 10-23-2023 Emergency department patient visit UNKNOWN PROVIDER Facility:[facility] Start: 10-14-2023 End: 10-14-2023 Emergency department patient visit [facility] Work Phone: Start: 10-12-2023 Telephone encounter Elle Hathaway APRN.CNP Work Phone: [facility] Comment on above: Medication Problem Start: 10-12-2023 End: 10-12-2023 Patient encounter procedure Elle Hathaway APRN.HAROON Work Phone: [facility] Comment on above: Burning with urinati on (Primary Dx); Vaginal discharge Start: 09-30-2023 Telephone encounter Elle Hathaway APRN.CNP Work Phone: [facility] Comment on above: Results Start: 09-29-2023 End: 09-29-2023 Patient encounter procedure Martha Aguillon APRN.HAROON Work Phone: [facility] Comment on above: Dysuria (Primary Dx) ; Exposure to gonorrhea Start: 09-10-2023 End: 09-10-2023 Emergency department patient visit NO ASSIGNED PCP GENERIC PROVIDER [facility] Start: 09-10-2023 End: 09-10-2023 Emergency department patient visit No Generic Provider [facility] Emergency Medicine Comment on above: Exposure to gonorrhe a (Primary Dx) Start: 06-24-2023 End: 06-24-2023 Emergency department patient visit Isa Morrow MD Work Phone: [facility] Emergency Medicine Comment on above: Nausea/vomiting Start: 03-11-2023 End: 03-11-2023 Emergency department patient visit Jody Melchor [facility] Adult ED GOLD A 09 A Start: 03-02-2023 End: 03-02-2023 Emergency department patient visit Ronnell Nunn [facility] Adult ED GOLD A 09 A Start: 02-16-2023 End: 02-17-2023 Emergency department patient visit Amanda Steen [facility] Adult ED Results Pending Start: 02-09-2023 End: 02-09-2023 Patient encounter procedure [employer] Work Phone: [facility] Comment on above: Recurrent major depr essive disorder in partial remission ([facility]- CMS) (Primary Dx); Housing or economic circumstance Start: 02-09-2023 End: 03-10-2023 ambulatory ISIDRO Roman [place] Start: 02-03-2023 ambulatory Isa Gerber Facility:[id number] Start: 01-23-2023 End: 01-23-2023 Patient encounter procedure Access Derm Main Provider Work Phone: Dermatology Comment on above: Dermatographia (Prim karen Dx) Start: 01-21-2023 End: 01-21-2023 Patient encounter procedure [employer] Work Phone: [facility] Comment on above: Alcohol use disorder , severe, in early remission, in controlled environment (HCC-CMS) (Primary Dx); Housing or economic circumstance Start: 01-21-2023 ambulatory ISIDRO [facility] Allia nce Start: 01-20-2023 End: 01-20-2023 Office outpatient visit 15 minutes Isidro Nicole APRN,SUGAR SAMPLER Work Phone: [facility] Comment on above: Urinary pain (Primar y Dx) Start: 01-08-2023 End: 01-08-2023 Office outpatient visit 15 minutes Isidro Nicole APRN,SUGAR SAMPLER Work Phone: [facility] Comment on above: Bacterial vaginosis (Primary Dx) Start: 01-08-[address] Trinidad Whitney Facility:[id number] Start: 12-26-2022 Chart Update Referring Prov ider Unknown [id number] 1200 [place] Work Phone: Start: 12-25-2022 End: 12-26-2022 ambulatory Nazia Galdamez Facility:[facility] Start: 12-25-2022 Patient encounter procedure Referring Provider Unknown [id number] 1200 [place] Work Phone: Start: 12-22-2022 Chart abstracting Bishop baxter Work Phone: [facility] Start: 12-22-2022 Patient encounter procedure Bishop Mckay Work Phone: [facility] Comment on above: Referral of patient (Primary Dx) Start: 12-22-2022 End: 12-22-2022 Office outpatient visit 15 minutes Isidro Nicole APRN,SUGAR SAMPLER Work Phone: [facility] Comment on above: Vaginal discharge (P rimary Dx); Urinary pain Start: 12-18-2022 End: 12-18-2022 Office outpatient visit 15 minutes Isidro Nicole APRN,SUGAR SAMPLER Work Phone: [facility] Comment on above: Itching (Primary Dx) Start: 12-15-2022 Chart Update Referring Prov ider Unknown [id number] Work Phone: Start: 12-12-2022 Current tobacco non- user cad cap copd pv dm Referring Provider Unknown [id number] 1200 [place] Work Phone: Start: 12-12-2022 ambulatory Caity Infante ty:[facility] Start: 11-20-2022 End: 11-20-2022 Office outpatient visit 15 minutes Isidro Nicole APRN,HAROON Work Phone: [facility] [place] [facility] Comment on above: Bee allergy status ( Primary Dx); Skin rash Start: 11-01-2022 ambulatory Araseli Parra NP [place] Start: 10-27-2022 End: 10-27-2022 Phys/qhp telephone evaluation 5-10 min Isidro Nicole APRN,SUGAR SAMPLER Work Phone: [facility] Comment on above: Encounter to discuss test results (Primary Dx); Antibiotic-induced yeast infection Start: 10-22-2022 End: 10-22-2022 Office outpatient visit 15 minutes Isidro Nicole APRN,SUGAR SAMPLER Work Phone: [facility] Comment on above: Vaginal discomfort ( Primary Dx) Start: 10-06-2022 End: 10-06-2022 Phys/qhp telephone evaluation 5-10 min Isidro Nicole APRN,SUGAR SAMPLER Work Phone: [facility] Comment on above: Anxiety Start: 10-06-2022 End: 10-06-2022 Patient encounter procedure [employer] Work Phone: [facility] Comment on above: Anxiety (Primary Dx) ; Housing or economic circumstance Start: 09-25-2022 End: 09-25-2022 Phys/qhp telephone evaluation 5-10 min Isidro Nicole APRN,HAROON Work Phone: [facility] Comment on above: Encounter to discuss test results (Primary Dx) Start: 09-22-2022 End: 09-22-2022 Patient encounter procedure [employer] Work Phone: [facility] Comment on above: Unspecified mood dis order (HCC-CMS) (Primary Dx); Housing or economic circumstance Start: 09-18-2022 End: 09-18-2022 Periodic preventive med est patient 18-39 yrs Isidro Nicole APRN,SUGAR SAMPLER Work Phone: [facility] [place] [facility] Comment on above: Vaginal odor (Primar y Dx); Anxiety; Recurrent major depressive disorder, in partial remission ([facility]-CMS); Psychophysiologic insomnia Start: 08-22-2022 Non-patient / Non-visit Dr. Giselle Corral Work Phone: [facility] Start: 08-21-2022 Non-patient / Non-visit Dr. Giselle Corral Work Phone: [facility] Start: 08-20-2022 Non-patient / Non-visit Dr. Giselle Corral Work Phone: [facility] Start: 08-19-2022 Non-patient / Non-visit Dr. Giselle Corral Work Phone: [facility] Start: 08-18-2022 End: 08-22-2022 [facility] Start: 07-24-2022 End: 07-24-2022 Patient encounter procedure Elle Hathaway APRN.SUGAR SAMPLER Work Phone: [facility] Comment on above: Vaginal discharge (P rimary Dx) Start: 06-30-2022 Telephone encounter Elle Hathaway APRN.SUGAR SAMPLER Work Phone: [facility] Comment on above: Results Start: 06-24-2022 Telephone encounter Mary ortega BARREL COATER.CNM Work Phone: OB/Gynecology Comment on above: Patient Question Start: 06-08-2022 End: 06-08-2022 Emergency department patient visit [facility]Emergency [facility] Start: 06-07-2022 End: 06-08-2022 Emergency department patient visit [facility] Start: 06-05-2022 Telephone encounter Mary ortega BARREL COATER.CNM Work Phone: OB/Gynecology Comment on above: Results Patient Question Start: 05-23-2022 Telephone encounter Toya jang BARREL COATER.SUGAR SAMPLER Work Phone: OB/Gynecology Comment on above: Results Start: 04-17-2022 Telephone encounter Elle Hathaway FOSTER.SUGAR SAMPLER Work Phone: [facility] Comment on above: Results Start: 04-16-2022 End: 04-16-2022 Patient encounter procedure Yue Parker Letty YOUSSEF-C Work Phone: [facility] Comment on above: Exposure to gonorrhe a (Primary Dx); Exposure to trichomonas Start: 03-24-2022 Telephone encounter Evy San FOSTER.SUGAR SAMPLER Work Phone: [facility] Comment on above: Results Start: 03-23-2022 End: 03-23-2022 Patient encounter procedure Yue Parker Letty YOUSSEF-C Work Phone: [facility] Comment on above: Burning with urinati on (Primary Dx); Vaginal discharge; Unprotected sexual intercourse; Mild intermittent asthma, uncomplicated; Dermatographism; Seasonal allergies Start: 02-24-2022 End: 02-24-2022 Emergency department patient visit PHYSICIAN [facility] Start: 11-24-2021 End: 11-24-2021 Emergency department patient visit ISA MCKEON [facility] Start: 10-17-2021 End: 10-17-2021 ambulatory DENICE STONE [facility] Start: 09-05-2021 End: 09-05-2021 Emergency department patient visit NO PCP PHYSICIAN [facility] Start: 08-09-2021 End: 08-09-2021 Aisha Mendoza NP Work Phone: [facility] Start: 06-17-2021 End: 06-17-2021 Emergency department patient visit NO PCP PHYSICIAN [facility] Start: 06-06-2021 End: 06-06-2021 Emergency department patient visit PHYSICIAN [facility] Start: 06-05-2021 End: 06-05-2021 Emergency department patient visit NO PCP PHYSICIAN [facility] Start: 06-04-2021 End: 06-04-2021 Emergency department patient visit NO PCP PHYSICIAN [facility] Start: 05-30-2021 End: 05-30-2021 Emergency department patient visit NO PCP PHYSICIAN Cindy Funes Start: 05-29-2018 End: 05-29-2018 Emergency department patient visit JAQUI GANDHI Facility:[facility] Start: 05-12-2016 End: 10-30-2016 Patient requested procedure Elle Hathaway APRNMerlinSUGAR SAMPLER Work Phone: [facility] Patient encounter procedure Referring Provider Unknown [id number] 1200 [place] Work Phone: Procedures Date Procedure Procedure Detail Performing Clinician Start: 01-06-2025 BACTERIAL VAGINOSIS NAAT Elizabeth Haines MD Work Phone: Start: 01-06-2025 Iadna chlamydia trac homatis amplified probe tq Elizabeth Haines MD Work Phone: Start: 01-06-2025 Urnls dip stick/tabl et rgnt auto w/o microscopy Elizabeth Haines MD Work Phone: Start: 12-20-2024 UA DIP,URINE HCG (POC) [facility] Provider Start: 12-20-2024 Urnls dip stick/tabl et rgnt auto w/o microscopy Nathaniel YOUSSEF Work Phone: Start: 12-08-2024 UA DIP,URINE HCG (POC) [facility] Provider Start: 11-29-2024 Urnls dip stick/tabl et rgnt auto w/o microscopy Nathaniel YOUSSEF Work Phone: Start: 09-27-2024 CT of abdomen and pe lvis without contrast Stephany Bae DO Work Phone: Start: 09-27-2024 Urnls dip stick/tabl et reagent auto microscopy Stephany Bae DO Work Phone: Start: 09-27-2024 Estimated creatinine clearance Stephany Bae DO Work Phone: Start: 09-19-2024 UA DIP,URINE HCG (POC) [facility] Provider Start: 08-20-2024 UA DIP,URINE HCG (POC) Evy San BARREL COATER.SUGAR SAMPLER Work Phone: Start: 08-20-2024 Urnls dip stick/tabl et rgnt auto w/o microscopy Martha Henna HUTCHISON.SUGAR SAMPLER Work Phone: Start: 08-03-2024 Urnls dip stick/tabl et rgnt auto w/o microscopy Nathaniel Morales PA Work Phone: Start: 06-17-2024 Urnls dip stick/tabl et rgnt auto w/o microscopy Yue Resendiz PA-C Work Phone: Start: 05-18-2024 Polymerase chain samaria ction analysis Stephany Bae DO Work Phone: Start: 05-18-2024 Trichomonas vaginali s detection Stephany Bae DO Work Phone: Start: 02-11-2024 Us uterus 1 4 wk transabdl 06/22 gestat Luis Felipe Marie MD Work Phone: Start: 02-04-2024 Gonadotropin chorion ic quantitative Luis Felipe Marie MD Work Phone: Start: 02-03-2024 Us uterus 1 4 wk transabdl 06/22 violetat Luis Felipe Marie MD Work Phone: Start: 01-28-2024 care atrisk assessm Luis Felipe Marie MD Work Phone: Start: 01-27-2024 RED/YELLOW TOP TUBE, URINE Luis Felipe Marie MD Work Phone: Start: 01-27-2024 YELLOW TOP TUBE, URINE Luis Felipe Marie MD Work Phone: Start: 01-27-2024 Antibody rubella Luis Felipe Marie MD Work Phone: Start: 01-27-2024 Hemoglobin glycosylated a1c Luis Felipe Marie MD Work Phone: Start: 01-27-2024 Iaad ia hepatitis b surface antigen Luis Felipe Marie MD Work Phone: Start: 01-27-2024 Urnls dip stick/tabl et rgnt non-auto w/o micrscp Luis Felipe Marie MD Work Phone: Start: 01-27-2024 Microscopic observat ion [Identifier] in Cervix by Cyto stain Luis Felipe Marie MD Work Phone: Start: 01-17-2024 Transvaginal ultraso und examination of female genital tract Jun Cardenas MD Work Phone: Start: 01-17-2024 Blood typing, ABO, R ho(D) and RBC antibody screening Jun Cardenas MD Work Phone: Start: 01-17-2024 Gonadotropin chorion ic quantitative Jun Cardenas MD Work Phone: Start: 01-17-2024 Smr prim src wet josette nt nfct agt Jun Cardenas MD Work Phone: Start: 01-17-2024 Urine test visual color cmprsn meths Jun Cardenas MD Work Phone: Start: 01-02-2024 End: 01-02-2024 Urine test visual color cmprsn meths Karla Estrada APRN-[facility] Work Phone: Start: 10-27-2023 Gonadotropin chorion ic quantitative Kemal Field MD Work Phone: Start: 10-14-2023 Transvaginal obstetr ic ultrasonography Start: 10-12-2023 UA DIP,URINE HCG (POC) Elle Hathaway APRN.SUGAR SAMPLER Work Phone: Start: 10-12-2023 Urnls dip stick/tabl et rgnt auto w/o microscopy Elle Hathaway APRN.SUGAR SAMPLER Work Phone: Start: 09-29-2023 BACTERIAL VAGINOSIS NAAT Martha Aguillon APRN.SUGAR SAMPLER Work Phone: Start: 09-29-2023 Iadna chlamydia trac homatis amplified probe tq Martha Aguillon APRN.SUGAR SAMPLER Work Phone: Start: 09-29-2023 UA DIP,URINE HCG (POC) [facility] Provider Start: 09-29-2023 Urnls dip stick/tabl et rgnt auto w/o microscopy Martha Aguillon APRN.CNP Work Phone: Start: 09-10-2023 US GALLBLADDER NO GENER IC PROVIDER Start: 09-10-2023 Us abdominal real ti me w/image limited Daniella TOMLIN Work Phone: Start: 09-10-2023 Comprehensive metabo lic 2000 panel - Serum or Plasma NO GENERIC PROVIDER Start: 09-10-2023 HEPATITIS C RNA, QUANTITATIVE, PCR NO GENERIC PROVIDER Start: 09-10-2023 HIV 1/2 ANTIGEN/ANTI BODY SCREEN WIH REFLEX TO CONFIRMATION NO GENERIC PROVIDER Start: 09-10-2023 HUMAN CHORIONIC GONADOTROPIN, SERUM QUANTITATIVE NO GENERIC PROVIDER Start: 09-10-2023 SYPHILIS SCREENING W ITH REFLEX NO GENERIC PROVIDER Start: 09-10-2023 C. TRACHOMATIS + N. GONORRHOEAE, AMPLIFIED NO GENERIC PROVIDER Start: 09-10-2023 EXTRA URINE PELAEZ TUBE N O GENERIC PROVIDER Start: 09-10-2023 URINALYSIS WITH REFL EX CULTURE AND MICROSCOPIC NO GENERIC PROVIDER Start: 09-10-2023 WET PREP, GENITAL NO GE NERIC PROVIDER Start: 09-10-2023 POCT , URINE N O GENERIC PROVIDER Start: 09-10-2023 NURSING COMMUNICATION N O GENERIC PROVIDER Start: 09-10-2023 SALINE LOCK IV NO GENER IC PROVIDER Start: 09-10-2023 INSERT PERIPHERAL IV NO GENERIC PROVIDER Start: 09-10-2023 Antibody treponema pallidum Daniella Wilson APRN-HAROON Work Phone: Start: 09-10-2023 Comprehensive metabo lic panel Daniella TOMLIN Work Phone: Start: 09-10-2023 End: 09-10-2023 Smr prim src wet mount nfct agt Daniella Wilson APRN-SUGAR SAMPLER Work Phone: Start: 09-10-2023 End: 09-10-2023 Urine test visual color cmprsn meths Daniella Wilson APRN-SUGAR SAMPLER Work Phone: Start: 06-24-2023 End: 06-24-2023 Assay of lactate Isa Morrow MD Work Phone: Start: 06-24-2023 Hepatic function panel Isa Morrow MD Work Phone: Start: 01-21-2023 Psychiatric diagnost ic evaluation Recurrent major depressive disorder, in partial remission (HCC-CMS) Ap Saenz Work Phone: Comment on above: Recurrent major depr essive disorder, in partial remission (HCC-CMS) (Primary Dx); Alcohol use disorder, severe, in early remission, in controlled environment (HCC-CMS); Methamphetamine use disorder, severe, in early remission, in controlled environment, dependence (HCC-CMS) Start: 01-08-2023 Follow-up visit Start: 12-22-2022 Urnls dip stick/tabl et rgnt auto w/o microscopy Isidro Nicole APRN,SUGAR SAMPLER Work Phone: Start: 12-12-2022 Follow-up visit Start: 10-22-2022 Urnls dip stick/tabl et rgnt auto w/o microscopy Isidro Nicole APRN,SUGAR SAMPLER Work Phone: Start: 09-22-2022 End: 09-22-2022 Psychiatric diagnostic evaluation Unspecified mood disorder (HCC-CMS) Otto Higuera Work Phone: Comment on above: Unspecified mood dis order (HCC-CMS) (Primary Dx) Unspecified mood dis order (HCC-CMS) (Primary Dx); Screening for intellectual disability Start: 09-18-2022 Urnls dip stick/tabl et rgnt auto w/o microscopy Isidro Nicole APRN,SUGAR SAMPLER Work Phone: Start: 06-08-2022 Computed tomography of abdomen and pelvis with contrast Start: 05-22-2022 Microscopic observat ion [Identifier] in Cervix by Cyto stain Radha rAndt Work Phone: Start: 03-23-2022 End: 03-23-2022 Urnls dip stick/tablet rgnt auto w/o microscopy Martha Aguillon APRN.SUGAR SAMPLER Work Phone: Start: 08-09-2021 End: 08-09-2021 Urnls dip stick/tablet rgnt non-auto w/o micrscp Aisha Mendoza EXPOSURE MACHINE OPERATOR Work Phone: Start: 05-29-2018 Cedrick MIKI PATTI GANDHI SARS-CoV-2 & FLU Ant igen (Rapid) SARS-CoV-2 & FLU Ant igen (Rapid) Plan of Treatment Date Care Activity Detail Author Start: 01-15-2044 Shingles (RZV) Vacci ne (1 of 2) Shingles (RZV) Vaccine (1 of 2) [facility] Start: 01-15-2044 Zoster Vaccines (1 of 2) Zoste r Vaccines (1 of 2) [facility] Start: 12-08-2034 Urine microalbumin profile DTa P,Tdap,Td Vaccine (2 - Td or Tdap) [facility] Start: 01-26-2027 Screening for malign ant neoplasm of cervix [facility] Start: 05-22-2025 PAP TESTING PAP TESTING [facility] Start: 05-22-2025 Screening for malign ant neoplasm of cervix [facility] Start: 02-20-2025 Influenza vaccination [facility] Start: 01-12-2025 End: 01-12-2025 Patient encounter procedure 01/12/2025 3:20 PM EDT Office Visit OB/Gynecology [address] [place] [id number] Elizabeth Haines MD [address] [place] [id number] Nexplanon insertion OB/Gynecology Comment on above: Nexplanon insertion Start: 01-06-2025 End: 04-07-2025 Estradiol (E2) [Mass/volume] in Serum or Plasma ESTRADIOL-17B BLD Lab Routine Moodiness Expected: 01/06/2025, Expires: 04/07/2025 [facility] Comment on above: Expected: 01/06/2025 , Expires: 04/07/2025 Start: 01-06-2025 End: 04-07-2025 Follitropin [Units/volume] in Serum or Plasma FOLLICLE STIMULATING HORMONE Lab Routine Moodiness Expected: 01/06/2025, Expires: 04/07/2025 [facility] Comment on above: Expected: 01/06/2025 , Expires: 04/07/2025 Start: 01-06-2025 End: 04-07-2025 Lutropin [Units/volume] in Serum or Plasma LUTEINIZING HORMONE Lab Routine Moodiness Expected: 01/06/2025, Expires: 04/07/2025 [facility] Comment on above: Expected: 01/06/2025 , Expires: 04/07/2025 Start: 01-06-2025 End: 04-07-2025 TESTOSTERONE, FREE AND TOTAL, BY EQUILIBRIUM DIALYSIS AND MASS SPECTROMETRY TESTOSTERONE, FREE AND TOTAL, BY EQUILIBRIUM DIALYSIS AND MASS SPECTROMETRY Lab Routine Moodiness Expected: 01/06/2025, Expires: 04/07/2025 [facility] Comment on above: Expected: 01/06/2025 , Expires: 04/07/2025 Start: 01-06-2025 End: 04-07-2025 Thyrotropin [Units/volume] in Serum or Plasma THYROID STIMULATING HORMONE Lab Routine Moodiness Expected: 01/06/2025, Expires: 04/07/2025 [facility] Work Phone: Comment on above: Expected: 01/06/2025 , Expires: 04/07/2025 Start: 12-30-2024 End: 12-30-2024 Patient encounter procedure 12/30/2024 7:15 AM EDT Office Visit OB/Gynecology [address] [place] [address] Mark Schwarz APRN.SUGAR SAMPLER [address] [place] [address] discuss control options / OB/Gynecology Comment on above: discuss contro l options / Start: 12-26-2024 Triacylglycerol lipa se measurement [facility] Start: 12-26-2024 End: 12-26-2024 Patient encounter procedure 12/26/2024 8:15 AM EDT Office Visit OB/Gynecology [address] [place] [address] Mary Guy APRN.[facility] [address] [place] [address] Cramping OB/Gynecology Comment on above: Cramping Start: 12-20-2024 End: 03-21-2025 Chlamydia trachomatis+Neisseria gonorrhoeae DNA [Presence] in Unspecified specimen by LILIANE with probe detection GONORRHEA/CHLAMYDIA NAAT Lab Routine Dysuria Expected: 12/20/2024, Expires: 03/21/2025 [facility] Comment on above: Expected: 12/20/2024 , Expires: 03/21/2025 Start: 09-27-2024 [facility] Start: 08-28-2024 [facility] Start: 05-18-2024 [facility] Start: 03-22-2024 Influenza vaccination Influenza Vacc ine (#1) [facility] Start: 03-09-2024 End: 03-09-2024 ambulatory 03/09/2024 2:00 PM EDT SUPERVISOR STAVE FINISHING Ultrasound [facility] [address] [place] [id number] [facility] Start: 03-09-2024 Hypertension screening Hyperte nsion Screening (#1) [facility] Start: 02-26-2024 Tobacco Screening Tobacco Screening [facility] Start: 02-24-2024 End: 02-24-2024 Nutrition therapy 02/24/2024 2:30 PM EDT [facility] Nutrition Obstetrics [address] [place] [address] [phone] [facility] Nutrition Obstetrics Start: 02-24-2024 End: 02-24-2024 Patient encounter procedure 02/24/2024 2:00 PM EDT Office Visit [facility] Obstetrics/Gynecology [address] [place] [phone] Luis Felipe Marie MD [address] [place] [phone] [facility] Obstetrics/Gynecolog y Start: 02-21-2024 COVID-19 Vaccine ( season) COVID-19 Vaccine () [facility] Start: 02-21-2024 Covid-19 Vaccine () Covid-19 Vaccine () [facility] Start: 02-21-2024 End: 03-16-2024 FIRST TRIMESTER SERUM SCREEN FIRST TRIMESTER SERUM SCREEN Lab Routine High risk , antepartum (HCC) Expected: 02/21/2024, Expires: 03/16/2024 [facility] Comment on above: Expected: 02/21/2024 , Expires: 03/16/2024 Start: 02-21-2024 Influenza vaccination [facility] Start: 02-11-2024 End: 02-11-2024 Patient encounter procedure 02/11/2024 1:45 PM EDT Appointment [facility] Radiology [address] [place] [address] [facility] Start: 02-10-2024 End: 02-08-2025 US for in first trimester US 1ST TRIMESTER Imaging Routine Threatened (HCC) Expected: 02/10/2024, Expires: 02/08/2025 [facility] Work Phone: Comment on above: Expected: 02/10/2024 , Expires: 02/08/2025 Start: 02-09-2024 End: 02-08-2025 US for in first trimester US 1ST TRIMESTER Imaging Routine Threatened (HCC) Expected: 02/09/2024, Expires: 02/08/2025 [facility] [employer] Work Phone: Comment on above: Expected: 02/09/2024 , Expires: 02/08/2025 Start: 02-03-2024 End: 02-03-2024 Patient encounter procedure 02/03/2024 1:00 PM EDT Appointment [facility] Radiology [address] [place] [address] [facility] Start: 02-01-2024 End: 02-27-2024 US Pelvis US FEMALE PELVIS+BLADDER Imaging Routine High risk , antepartum (HCC) Expected: 02/01/2024, Expires: 02/27/2024 [facility] Comment on above: Expected: 02/01/2024 , Expires: 02/27/2024 Start: 01-27-2024 End: 02-27-2024 Diabetes tracking panel [facility] Comment on above: Expected: 01/27/2024 (Approximate), Expires: 02/27/2024 Start: 01-27-2024 End: 01-27-2024 Patient encounter procedure 01/27/2024 2:00 PM EDT Office Visit [facility] Obstetrics/Gynecology [address] [place] [address] Luis Felipe Marie MD [address] [place] [phone] [facility] Obstetrics/Gynecolog y Start: 01-20-2024 Hypertension screening Hyperte nsion Screening (#1) [facility] Start: 01-20-2024 Tobacco use cessatio n education Tobacco Cessation Counseling (#1) [facility] Start: 01-19-2024 End: 01-19-2024 Patient encounter procedure 01/19/2024 1:30 PM EDT Office Visit [facility] Obstetrics/Gynecology [address] [place], [place] [id number] Ronnell Huang MD [address] [place] [phone] [facility] Obstetrics/Gynecolog y Start: 01-08-2024 Hypertension screening Hyperte nsion Screening (#1) [facility] Start: 12-22-2023 Hypertension screening Hyperte nsion Screening (#1) [facility] Start: 12-18-2023 Hypertension screening Hyperte nsion Screening (#1) [facility] Start: 11-29-2023 Relationship Safety Screening/Counseling Relationship Safety Screening/Counseling [facility] Start: 11-28-2023 Tobacco use cessatio n education Tobacco Cessation Counseling (#1) [facility] Start: 11-20-2023 Hypertension screening Hyperte nsion Screening (#1) [facility] Start: 11-05-2023 End: 11-05-2023 Patient encounter procedure 11/05/2023 12:30 PM EDT [facility] Contin[facility] [employer]PER[employer]OR [employer] [address] [place] [address] Marylin Wallace MD [address] [place] [address] [facility] [employer] Start: 10-27-2023 End: 10-27-2023 Patient encounter procedure 10/27/2023 2:00 PM EDT Office Visit [address] S[address] Ctr SUPER[employer]OR [employer] [address] [place] [id number] Sandie Raymundo MD [address] [place] [address] [facility] S[facility] SUPERVISOR [employer] FINISHING Start: 10-23-2023 End: 10-23-2023 Patient encounter procedure 10/23/2023 8:00 AM EDT Initial Office Visit OB/Gynecology [address] [place] [address] Toya Rangel APRN.SUGAR SAMPLER [address] [place] [address] New ob lmp 09/16 OB/Gynecology Comment on above: New ob lmp 09/16 Start: 10-22-2023 Hypertension screening Hyperte nsion Screening (#1) [facility] Start: 10-14-2023 [facility] Start: 10-10-2023 Tobacco use cessatio n education Tobacco Cessation Counseling (#1) [facility] Start: 09-19-2023 Annual Wellness Visit Annual Wellnes s Visit [facility] Start: 09-18-2023 Hypertension screening Hyperte nsion Screening (#1) [facility] Start: 09-18-2023 Tobacco use cessatio n education Tobacco Cessation Counseling (#1) [facility] Start: 06-22-2023 Behavioral Health Screening Behavioral Health Screening [facility] Start: 06-22-2023 Depression screening Depressio n Annual Screen (#1) [facility] Start: 06-09-2023 Hepatitis B vaccination Imm-He patitis B (1 of 3 - 3-dose series) [facility] Comment on above: Postponed from 01/14 (Follow up visit) Start: 06-09-2023 Imm-Pneumococcal (1 - PCV) Imm -Pneumococcal (1 - PCV) [facility] Comment on above: Postponed from 01/14 (Follow up visit) Start: 06-09-2023 Tetanus vaccination Imm-DTaP/T dap/Td (1 - Tdap) [facility] Comment on above: Postponed from 01/14 (Patient declines) Start: 05-30-2023 [id number]-23 (2 - Mo derna series) Hnx-UCFIB-29 (2 - Moderna series) [facility] Comment on above: Postponed from 08/19 (Patient declines) Start: 05-25-2023 Hepatitis C screening Hepatitis C Sc reening [facility] Comment on above: Postponed from 01/14 (Patient declines) Start: 05-25-2023 Lipid panel Lipid Screening [facility] Comment on above: Postponed from 01/14 (Follow up visit) Start: 05-25-2023 Screening for malign ant neoplasm of cervix Cervical Cancer Screening [facility] Comment on above: Postponed (Patient d eclines) Start: 04-22-2023 Depression Monitoring [facility] Start: 02-28-2023 Hepatitis B vaccination Imm-He patitis B (1 of 3 - 3-dose series) [facility] Comment on above: Postponed from 01/14 (Patient declines) Start: 02-28-2023 HIV Screening HIV Screening [facility] Comment on above: Postponed from 01/14 (Patient declines) Start: 02-28-2023 Imm-Pneumococcal (1 - PCV) Imm -Pneumococcal (1 - PCV) [facility] Comment on above: Postponed from 01/14 (Patient declines) Start: 02-28-2023 Imm-Zoster, Recombin ant (1 of 2) Imm-Zoster, Recombinant (1 of 2) [facility] Comment on above: Postponed from 01/14 (Patient declines) Start: 02-28-2023 Tetanus vaccination Imm-DTaP/T dap/Td (1 - Tdap) [facility] Comment on above: Postponed from 01/14 (Patient declines) Start: 02-24-2023 Patient encounter procedure 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 Start: 02-20-2023 COVID-19 Vaccine () COVID-19 Vaccine () [facility] Start: 02-20-2023 [id number] () Nej-[id number]-59 () [facility] Start: 02-20-2023 Influenza vaccination [facility] Start: 12-22-2022 Depression Monitoring Depression Mon [facility] Start: 08-22-2022 Patient discharge [facility] Start: 08-18-2022 Assessment of risk o f venous thromboembolism [facility] Start: 08-18-2022 Insertion of cathete r into peripheral vein [facility] Start: 08-18-2022 Providing care accor ding to standard [facility] Start: 08-18-2022 Provision of activit y privileges [facility] Start: 08-18-2022 [facility] Start: 08-18-2022 Following clinical p athway protocol [facility] Start: 08-18-2022 Verification routine [facility] Start: 08-18-2022 Admission procedure [facility] Start: 08-18-2022 [facility] Start: 08-18-2022 Patient referral to dietitian [facility] Start: 06-22-2022 DEPRESSION ASSESSMENT DEPRESSION ASS ESSMENT [facility] Start: 06-22-2022 Screening for substa nce abuse Alcohol and Drug Screen [facility] Start: 02-20-2022 Influenza vaccination [facility] Start: 11-19-2021 PAP TESTING PAP TESTING [facility] Start: 08-19-2021 COVID-19 VACCINE (3 - Booster for Arlen series) COVID-19 VACCINE (3 - Booster for Arlen series) [facility] Start: 08-09-2021 Dietary management education, guidance, and counseling Dietary management education, guidance, and counseling [facility] Work Phone: Start: 08-09-2021 Lifestyle education regarding diet Lifestyle education regarding diet [facility] Work Phone: Start: 06-22-2021 DEPRESSION ASSESSMENT DEPRESSION ASS ESSMENT [facility] Start: 12-17-2018 HPV VACCINE (2 - 3-d ose series) HPV VACCINE (2 - 3-dose series) [facility] Start: 12-17-2018 HPV Vaccines (2 - 3- dose series) HPV Vaccines (2 - 3-dose series) [facility] Start: 12-17-2018 Vaccination for tatianna n papillomavirus HPV Vaccine (2 - 3-dose series) [facility] Start: 01-15-2016 DTaP/Tdap/Td Vaccine s (1 - Tdap) DTaP/Tdap/Td Vaccines (1 - Tdap) [facility] Start: 2015 Screening for malign ant neoplasm of cervix [facility] Start: 2013 Hepatitis A (HAV) Va ccine (optional start 19+ years) Hepatitis A (HAV) Vaccine (optional start 19+ years) [facility] Start: 2013 Hepatitis B vaccination Hepati tis B (HBV) Vaccine (1 of 3 - 19+ 3-dose series) [facility] Start: 2013 Hepatitis B Vaccine (1 of 3 - 19+ 3-dose series) Hepatitis B Vaccine (1 of 3 - 19+ 3-dose series) [facility] Start: 2013 Imm-Zoster, Recombin ant (1 of 2) Imm-Zoster, Recombinant (1 of 2) [facility] Start: 2013 Tetanus vaccination Imm-DTaP/T dap/Td (1 - Tdap) [facility] Start: 2013 Urine microalbumin profile [facility] Start: 01-15-2012 Anxiety Screening Anxiety Screening [facility] Start: 01-15-2012 Depression Screening Depression Scre ening [facility] Start: 01-15-2012 Tetanus + diphtheria + acellular pertussis vaccine (product) Tdap Booster [facility] Start: 2009 HIV Screening HIV Screening [facility] Start: 2009 Relationship Safety Screening/Counseling Relationship Safety Screening/Counseling [facility] Start: 01-15-2000 Imm-Pneumococcal (1 - PCV) Imm -Pneumococcal (1 - PCV) [facility] Start: 1995 MMR Vaccines (1 of 1 - Standard series) MMR Vaccines (1 of 1 - Standard series) [facility] Start: 1995 Varicella vaccination Varicell a Vaccines (1 of 2 - 2-dose childhood series) [facility] Start: 1994 [id number] (#1) [id number]-[id number]-83 (#1) [facility] Start: 1994 HEPATITIS B (1 of 3 - 3-dose series) HEPATITIS B (1 of 3 - 3-dose series) [facility] Start: 1994 Hepatitis B vaccination [facility] Start: 1994 Hepatitis B Vaccines (1 of 3 - 3-dose series) Hepatitis B Vaccines (1 of 3 - 3-dose series) [facility] Start: 1994 Hepatitis C screening Hepatitis C Sc reening [facility] Start: 1994 Lipid panel [facility] Start: 1994 Screening for malign ant neoplasm of cervix [facility] Start: 1994 Tobacco use cessatio n education Tobacco Cessation Counseling (#1) [facility] Start: 1994 Yearly Adult Physical Yearly Adult P [facility] Alanine aminotransfe rase [Enzymatic activity/volume] in Serum or Plasma [facility] Albumin [Mass/volume ] in Serum or Plasma [facility] Alkaline phosphatase [Enzymatic activity/volume] in Serum or Plasma [facility] Amphetamine [Mass/vo lume] in Urine [facility] Anion gap in Serum o r Plasma [facility] Antibody rubella [facility] Comment on above: Ordered: 01/27/2024 Antibody treponema pallidum [facility] Comment on above: Ordered: 01/27/2024 Bacteria identified in Urine by Culture URINE CULTURE Microbiology Routine Dysuria 09/29/2023 3:08 PM EDT [facility] Work Phone: Bacteria identified in Urine by Culture URINE CULTURE Microbiology Routine Burning with urination 10/12/2023 9:03 AM EDT [facility] Work Phone: Bacteria identified in Urine by Culture [facility] Work Phone: Comment on above: Ordered: 01/27/2024 Bacteria identified in Urine by Culture BACTERIAL CULTURE, URINE Microbiology Routine Dysuria Ordered: 08/03/2024 [facility] Work Phone: Comment on above: Ordered: 08/03/2024 Bacteria identified in Urine by Culture BACTERIAL CULTURE, URINE Microbiology Routine Burning with urination 11/29/2024 10:39 AM EDT [facility] Work Phone: BACTERIAL VAGINOSIS AMPLIFICATION BACTERIAL VAGINOSIS AMPLIFICATION Lab Routine Vaginal discharge Ordered: 03/23/2022 [facility] Work Phone: Comment on above: Ordered: 03/23/2022 BACTERIAL VAGINOSIS AMPLIFICATION BACTERIAL VAGINOSIS AMPLIFICATION Lab Routine Exposure to trichomonas Ordered: 04/16/2022 [facility] Work Phone: Comment on above: Ordered: 04/16/2022 BACTERIAL VAGINOSIS AMPLIFICATION BACTERIAL VAGINOSIS AMPLIFICATION Lab Routine Vaginal discharge Ordered: 07/24/2022 [facility] Work Phone: Comment on above: Ordered: 07/24/2022 BACTERIAL VAGINOSIS NAAT BACTERI AL VAGINOSIS NAAT Lab Routine Vaginal discharge 10/12/2023 9:03 AM EDT [facility] BACTERIAL VAGINOSIS NAAT BACTERI AL VAGINOSIS NAAT Lab Routine Vaginal discharge Ordered: 06/17/2024 [facility] Work Phone: Comment on above: Ordered: 06/17/2024 BACTERIAL VAGINOSIS NAAT BACTERI AL VAGINOSIS NAAT Lab Routine Vaginal discharge Ordered: 08/03/2024 [facility] Comment on above: Ordered: 08/03/2024 BACTERIAL VAGINOSIS NAAT BACTERI AL VAGINOSIS NAAT Lab Routine Acute vaginitis Ordered: 08/20/2024 [facility] Comment on above: Ordered: 08/20/2024 BACTERIAL VAGINOSIS NAAT BACTERI AL VAGINOSIS NAAT Lab Routine Vaginal discharge 09/19/2024 11:05 AM EDT [facility] BACTERIAL VAGINOSIS NAAT BACTERI AL VAGINOSIS NAAT Lab Routine Burning with urination Screening for STD (sexually transmitted disease) 11/29/2024 10:39 AM EDT [facility] BACTERIAL VAGINOSIS NAAT BACTERI AL VAGINOSIS NAAT Lab Routine Vaginal discharge Ordered: 12/08/2024 [facility] Comment on above: Ordered: 12/08/2024 BACTERIAL VAGINOSIS NAAT BACTERI AL VAGINOSIS NAAT Lab Routine Dysuria Ordered: 12/20/2024 [facility] Comment on above: Ordered: 12/20/2024 Benzodiazepine measurement, urine [facility] Bilirubin, total measurement [facility] BUN/Creatinine ratio [facility] Calcium [Mass/volume ] in Serum or Plasma [facility] EULALIA / TRICHOMONA S AMPLIFICATION EULALIA / TRICHOMONAS AMPLIFICATION Microbiology Routine Vaginal discharge Ordered: 03/23/2022 [facility] Work Phone: Comment on above: Ordered: 03/23/2022 EULALIA / TRICHOMONA S AMPLIFICATION EULALIA / TRICHOMONAS AMPLIFICATION Microbiology Routine Exposure to trichomonas Ordered: 04/16/2022 [facility] Work Phone: Comment on above: Ordered: 04/16/2022 EULALIA / TRICHOMONA S AMPLIFICATION EULALIA / TRICHOMONAS AMPLIFICATION Microbiology Routine Vaginal discharge Ordered: 07/24/2022 [facility] Work Phone: Comment on above: Ordered: 07/24/2022 EULALIA/TRICHOMONAS NAAT EULALIA /TRICHOMONAS NAAT Lab Routine Vaginal discharge 10/12/2023 9:03 AM EDT [facility] EULALIA/TRICHOMONAS NAAT EULALIA /TRICHOMONAS NAAT Lab Routine Vaginal discharge Ordered: 06/17/2024 [facility] Comment on above: Ordered: 06/17/2024 EULALIA/TRICHOMONAS NAAT EULALIA /TRICHOMONAS NAAT Lab Routine Vaginal discharge Ordered: 08/03/2024 [facility] Comment on above: Ordered: 08/03/2024 EULALIA/TRICHOMONAS NAAT EULALIA /TRICHOMONAS NAAT Lab Routine Acute vaginitis Ordered: 08/20/2024 [facility] Comment on above: Ordered: 08/20/2024 EULALIA/TRICHOMONAS NAAT EULALIA /TRICHOMONAS NAAT Lab Routine Vaginal discharge 09/19/2024 11:05 AM EDT [facility] EULALIA/TRICHOMONAS NAAT EULALIA /TRICHOMONAS NAAT Lab Routine Burning with urination Screening for STD (sexually transmitted disease) 11/29/2024 10:39 AM EDT [facility] EULALIA/TRICHOMONAS NAAT EULALIA /TRICHOMONAS NAAT Lab Routine Vaginal discharge Ordered: 12/08/2024 [facility] Work Phone: Comment on above: Ordered: 12/08/2024 EULALIA/TRICHOMONAS NAAT EULALIA /TRICHOMONAS NAAT Lab Routine Dysuria Ordered: 12/20/2024 [facility] Comment on above: Ordered: 12/20/2024 Carbon dioxide, tota l [Moles/volume] in Central venous blood [facility] Cftr gene analysis c ommon variants [facility] Comment on above: Ordered: 01/27/2024 End: 09-10-2023 Chlamydia trachomatis and Neisseria gonorrhoeae DNA [Identifier] in Unspecified specimen by LILIANE with probe detection [facility] Service Area Work Phone: Comment on above: Once (Lab) for 1 Occ urrences starting 09/10/2023 until 09/10/2023 Chlamydia trachomatis+Neisseria gonorrhoeae DNA [Presence] in Unspecified specimen by LILIANE with probe detection GC/CHLAMYDIA DNA DET Lab Routine Burning with urination Ordered: 03/23/2022 [facility] Work Phone: Comment on above: Ordered: 03/23/2022 Chlamydia trachomatis+Neisseria gonorrhoeae DNA [Presence] in Unspecified specimen by LILIANE with probe detection GC/CHLAMYDIA DNA DET Lab Routine Exposure to gonorrhea Ordered: 04/16/2022 [facility] Work Phone: Comment on above: Ordered: 04/16/2022 Chlamydia trachomatis+Neisseria gonorrhoeae DNA [Presence] in Unspecified specimen by LILIANE with probe detection GC/CHLAMYDIA DNA DET Lab Routine Vaginal discharge Ordered: 07/24/2022 [facility] Work Phone: Comment on above: Ordered: 07/24/2022 Chlamydia trachomatis+Neisseria gonorrhoeae DNA [Presence] in Unspecified specimen by LILIANE with probe detection GONORRHEA/CHLAMYDIA NAAT Lab Routine Vaginal discharge 10/12/2023 9:03 AM EDT [facility] Chlamydia trachomatis+Neisseria gonorrhoeae DNA [Presence] in Unspecified specimen by LILIANE with probe detection GONORRHEA/CHLAMYDIA NAAT Lab Routine Vaginal discharge Ordered: 06/17/2024 [facility] Comment on above: Ordered: 06/17/2024 Chlamydia trachomatis+Neisseria gonorrhoeae DNA [Presence] in Unspecified specimen by LILIANE with probe detection GONORRHEA/CHLAMYDIA NAAT Lab Routine Vaginal discharge Ordered: 08/03/2024 [facility] Comment on above: Ordered: 08/03/2024 Chlamydia trachomatis+Neisseria gonorrhoeae DNA [Presence] in Unspecified specimen by LILIANE with probe detection GONORRHEA/CHLAMYDIA NAAT Lab Routine Exposure to STD Ordered: 08/20/2024 [facility] Work Phone: Comment on above: Ordered: 08/20/2024 Chlamydia trachomatis+Neisseria gonorrhoeae DNA [Presence] in Unspecified specimen by LILIANE with probe detection GONORRHEA/CHLAMYDIA NAAT Lab Routine Vaginal discharge 09/19/2024 11:05 AM EDT [facility] Chlamydia trachomatis+Neisseria gonorrhoeae DNA [Presence] in Unspecified specimen by LILIANE with probe detection GONORRHEA/CHLAMYDIA NAAT Lab Routine Screening for STD (sexually transmitted disease) 11/29/2024 10:39 AM EDT [facility] Chlamydia trachomatis+Neisseria gonorrhoeae DNA [Presence] in Unspecified specimen by LILIANE with probe detection GONORRHEA/CHLAMYDIA NAAT Lab Routine Vaginal discharge Ordered: 12/08/2024 [facility] Comment on above: Ordered: 12/08/2024 Choriogonadotropin.b eta subunit ( test) [Presence] in Serum or Plasma [facility] Cocaine measurement, urine [facility] End: 06-24-2023 COVID/INFLUENZA COVID/INFLUENZA Lab STAT One time, now for 1 Occurrences starting 06/24/2023 until 06/24/2023 [facility] [employer] Work Phone: Comment on above: One time, now for 1 Occurrences starting 06/24/2023 until 06/24/2023 Creatinine [Mass/vol ume] in Serum or Plasma [facility] Culture bacterial quanttative colony count urine CULTURE BACTERIAL QUANTITATIVE COLONY COUNT URINE Lab Routine Urinary pain Ordered: 01/20/2023 [facility] Work Phone: Comment on above: Ordered: 01/20/2023 Erythrocyte mean corpuscular volume determination [facility] EXTRA TUBE EXTRA TUBE Lab O nly Routine High risk , antepartum (HCC) Body mass index (BMI) 38.0-38.9, adult Ordered: 01/27/2024 [facility] Comment on above: Ordered: 01/27/2024 End: 09-10-2023 Extra Urine [facility] Extra Urine [facility] Lab Timed Once for 1 Occurrences starting 09/10/2023 until 09/10/2023 [facility] Work Phone: Comment on above: Once for 1 Occurrenc es starting 09/10/2023 until 09/10/2023 Glucose [Mass/volume ] in Serum or Plasma [facility] End: 01-26-2025 Gonadotropin chorionic quantitative HCG, QUANTITATIVE Lab Routine High risk , antepartum (HCC) 1 Occurrences starting 01/27/2024 until 01/26/2025 [facility] Comment on above: 1 Occurrences starti ng 01/27/2024 until 01/26/2025 Gonadotropin chorion ic quantitative HCG, QUANTITATIVE Lab Routine High risk , antepartum (HCC) 01/27/2024 3:36 PM EDT [facility] End: 02-02-2025 Gonadotropin chorionic quantitative HCG, QUANTITATIVE Lab Routine Threatened (HCC) 1 Occurrences starting 02/03/2024 until 02/02/2025 [facility] [employer] Work Phone: Comment on above: 1 Occurrences starti ng 02/03/2024 until 02/02/2025 Hematocrit [Volume Fraction] of Blood [facility] Hemoglobin [Mass/vol ume] in Blood [facility] End: 09-10-2023 Hepatitis C virus RNA panel (viral load) in Serum or Plasma by LILIANE with probe detection [facility] Work Phone: Comment on above: STAT (Lab) for 1 Occ urrences starting 09/10/2023 until 09/10/2023 HIV 1 and 2 Ab and H IV 1 p24 Ag panel - Serum or Plasma by Immunoassay [facility] Comment on above: Ordered: 01/27/2024 Iaad ia hepatitis b surface antigen [facility] Comment on above: Ordered: 01/27/2024 Iadna chlamydia trachomatis amplified probe tq CHLAMYDIA/GONORRHOEAE LILIANE URINE/SWAB Lab Routine Vaginal odor Ordered: 09/18/2022 [facility] Work Phone: Comment on above: Ordered: 09/18/2022 End: 01-17-2024 Iadna nos amplified probe tq each organism [facility] [employer] Work Phone: Comment on above: One time for 1 Occur rences starting 01/17/2024 until 01/17/2024 Leukocytes [#/volume ] in Blood [facility] Mean corpuscular hemoglobin concentration determination [facility] Mean corpuscular hemoglobin determination [facility] Measurement of 3,4-methylenedioxymethamph etamine in urine [facility] Measurement of renal function [facility] Methadone measuremen t, urine [facility] Microscopic examinat ion of cervical Papanicolaou smear PAP SMEAR Anatomic Pathology Routine High risk , antepartum (HCC) Ordered: 01/27/2024 [facility] Comment on above: Ordered: 01/27/2024 Neutrophil count [facility] Neutrophil percent differential count [facility] NEXPLANON INSERTION NEXPLANON IN SERTION Procedures Routine Encounter for contraceptive management, unspecified type Insertion of Nexplanon Ordered: 12/29/2024 [facility] Work Phone: Comment on above: Ordered: 12/29/2024 Patient Education [facility] Work Phone: Patient referral [facility] Work Phone: pH of Urine [facility] Phencyclidine [Prese nce] in Urine [facility] Platelets [#/volume] in Blood [facility] Potassium measurement [facility] Red blood cell count [facility] Red cell distributio n width determination [facility] End: 01-27-2024 RED/YELLOW TOP TUBE, URINE [facility] Comment on above: One time for 1 Occur rences starting 01/27/2024 until 01/27/2024 Serum chloride measurement [facility] Smn1 gene analysis dosage/delet paulina w/smn2 paulina [facility] Comment on above: Ordered: 01/27/2024 Sodium measurement [facility] Total protein measurement [facility] UA DIP,URINE HCG (POC) UA DIP,UR INE HCG (POC) Lab Routine Dysuria Ordered: 09/29/2023 [facility] Work Phone: Comment on above: Ordered: 09/29/2023 Urea nitrogen [Mass/volume] in Serum or Plasma [facility] End: 09-10-2023 Urinalysis complete W Reflex Culture panel - Urine [facility] Work Phone: Comment on above: Once (Lab) for 1 Occ urrences starting 09/10/2023 until 09/10/2023 Urine barbiturate measurement [facility] Urine cannabinoid measurement [facility] Urine opiate measurement [facility] End: 01-02-2024 Urine test visual color cmprsn meths URINE HCG-IN OFFICE Lab STAT One time for 1 Occurrences starting 01/02/2024 until 01/02/2024 [employer] Work Phone: Comment on above: One time for 1 Occur rences starting 01/02/2024 until 01/02/2024 Urine test visual color cmprsn meths HCG QUAL UR B/O Lab Routine Missed menses Ordered: 09/19/2024 [facility] Work Phone: Comment on above: Ordered: 09/19/2024 Urine test visual color cmprsn meths HCG QUAL UR B/O Lab Routine Cat scratch Ordered: 12/08/2024 [facility] Comment on above: Ordered: 12/08/2024 Urine test visual color cmprsn meths HCG QUAL UR B/O Lab Routine Dysuria Ordered: 12/20/2024 [facility] Work Phone: Comment on above: Ordered: 12/20/2024 End: 01-02-2024 Urnls dip stick/tablet rgnt auto w/o microscopy URINALYSIS,AUTO-IN OFFICE Lab STAT One time for 1 Occurrences starting 01/02/2024 until 01/02/2024 [facility] Comment on above: One time for 1 Occur rences starting 01/02/2024 until 01/02/2024 End: 07-29-2024 US for in first trimester CORRECTION FIRST TRIMESTER OB Imaging Routine High risk , antepartum (HCC) 1 Occurrences starting 01/27/2024 until 07/29/2024 TNC Comment on above: 1 Occurrences starti ng 01/27/2024 until 07/29/2024 US transabdominal an d transvaginal for in first trimester US 1ST TRI/OB TRANSVAG (MINOO) Imaging STAT 01/17/2024 10:47 AM EDT [facility] VAGINTIS PLUS, NUSWAB VAGINTIS P ILAN, NUSWAB Lab Routine Vaginal odor Ordered: 09/18/2022 [facility] Work Phone: Comment on above: Ordered: 09/18/2022 VAGINTIS PLUS, NUSWAB VAGINTIS P ILAN, NUSWAB Lab Routine Vaginal discomfort Ordered: 10/22/2022 [facility] Work Phone: Comment on above: Ordered: 10/22/2022 VAGINTIS PLUS, NUSWAB VAGINTIS P ILAN, NUSWAB Lab Routine Vaginal discharge Ordered: 12/22/2022 [facility] Work Phone: Comment on above: Ordered: 12/22/2022 VAGINTIS PLUS, NUSWAB VAGINTIS P ILAN, NUSWAB Lab Routine Urinary pain Ordered: 01/20/2023 [facility] Work Phone: Comment on above: Ordered: 01/20/2023 End: 01-27-2024 YELLOW TOP TUBE, URINE [facility] Comment on above: One time for 1 Occur rences starting 01/27/2024 until 01/27/2024 [facility] Immunizations Immunization Date Immunization Notes Care Provider Fa [facility] 12-08-2024 tetanus toxoid, redu hyun diphtheria toxoid, and acellular pertussis vaccine, adsorbed Valentin Leahy APRN.CNP Work Phone: [facility] 06-24-2021 Moderna Monovalent ( 12+ yrs) COVID-19 vaccine, mRNA, spike protein, LNP, PF, 100 mcg/0.5 mL (FJK=921) Isa Morrow MD Work Phone: [facility] 11-19-2018 Human Papillomavirus 9-valent vaccine Yue Resendiz PA-C Work Phone: [facility] 11-19-2018 HPV, unspecified formulation No Generic Provider [facility] Work Phone: 06-18-2014 influenza, injectabl e, quadrivalent, preservative free [facility] 06-18-2014 influenza, seasonal, injectable [facility] 06-18-2014 influenza, seasonal, injectable, preservative free Yue Resendiz PA-C Work Phone: [facility] 06-18-2014 influenza virus vaccine, unspecified formulation Isa Morrow MD Work Phone: [facility] Payers Date Payer Category Payer Self-pay [id number] 2022 Unknown 2021 Medicaid [id number] 2021 Medicaid [id number] 2020 Unknown [id number] 1994 Unknown [id number] 2.16.8 40.1.063298.3.579.2.278 1994 Unknown [id number] 2.16.8 40.1.170095.3.579.2.1143 1994 Unknown [id number] 2.16.84 0.1.206248.3.579.2.1143 1994 Unknown [id number] 2.16.84 0.1.520321.3.579.2.1143 1994 Unknown [id number] 2.16.84 0.1.505635.3.579.2.1143 1994 Unknown [id number] 2.16.84 0.1.304486.3.579.2.1143 1994 Unknown [id number] 2.16. 840.1.394835.3.579.2.902 1994 Unknown [id number] 2.16. 840.1.401246.3.579.2.902 1994 Unknown [id number] 2.16. 840.1.911588.3.579.2.900 1994 Unknown [id number] 2.16. 840.1.519888.3.579.2.900 1994 Unknown [id number] 2.16. 840.1.884669.3.579.2.356 1994 Unknown [id number] 2.16. 840.1.714243.3.579.2.356 1994 Unknown [id number] 2.16. 840.1.955579.3.579.2.356 1994 Unknown [id number] 2.16. 840.1.906814.3.579.2.356 1994 Unknown [id number] 2.16. 840.1.841492.3.579.2.356 1994 Unknown [id number] 2.16. 840.1.818833.3.579.2.356 1994 Unknown [id number] 2.16. 840.1.887093.3.579.2.356 1994 Unknown [id number] 2.16.8 40.1.276651.3.579.2.1249 1994 Unknown [id number] 2.16.8 40.1.962899.3.579.2.1249 1994 Unknown [id number] 2.16.8 40.1.356851.3.579.2.1245 1994 Unknown [id number] 2.16.84 0.1.177918.3.579.2.124 1994 Unknown [id number] 2.16. 840.1.231684.3.579.2.732 1994 Unknown [id number] 2.16. 840.1.470801.3.579.2.732 1994 Unknown [id number] 2.16. 840.1.692898.3.579.2.732 1994 Unknown [id number] 2.16. 840.1.396224.3.579.2.732 1994 Unknown [id number] 2.16. 840.1.714213.3.579.2.732 1994 Unknown [id number] 2.16. 840.1.648239.3.579.2. 1994 Unknown [id number] 2.16. 840.1.736103.3.579.2. 1994 Unknown [id number] 2.16. 840.1.939851.3.579.2. 1994 Unknown [id number] 2.16 840.1.806500.3.579.2. 1994 Unknown [id number] 2. 840.1.905347.3.579.2. 1994 Unknown [id number] 2. 840.1.398277.3.579.2. 1994 Unknown [id number] 2. 840.1.798557.3.579.2. 1994 Unknown [id number] 2. 840.1.037569.3.579.2. 1994 Unknown [id number] 2. 840.1.338058.3.579.2.732 Medicaid [id number] Unknown [id number] 2.16.8 40.1.759413.3.579.2.462 Unknown [id number] 2.16.8 40.1.898592.3.579.2.462 Unknown [id number] 2.16.8 40.1.469255.3.579.2.462 Unknown [id number] 2.16.8 40.1.759686.3.579.2.462 Unknown [id number] 2.16.8 40.1.642963.3.579.2.462 Unknown [id number] 2.16.8 40.1.812501.3.579.2.462 Unknown [id number] 2.16.8 40.1.157031.3.579.2.462 Unknown [id number] 2.16.8 40.1.749745.3.579.2.462 Social History Date Type Detail Facility Start: 08-09-2021 End: 06-17-2024 Tobacco smoking status NHIS Former smoker [facility] Start: 08-09-2021 Health-related Behavior Caffeine Use Details [facility] Work Phone: Start: 08-09-2021 Tobacco use and exposure Smoking Tobacco Use Details [facility] Work Phone: Start: 1995 Sex Assigned At Female [facility] History of tobacco use Current smoker [facility] History of tobacco use Cigarette Smoker [facility] Start: 03-23-2022 End: 06-17-2024 Tobacco use and exposure Smokeless tobacco non-user [facility] Start: 03-23-2022 End: 01-06-2025 Alcohol intake Current non-drinker of alcohol (finding) [facility] Start: 1995 Sex Assigned At Not on file [facility] Start: 06-07-2022 End: 10-14-2023 Tobacco smoking status [facility] Unknown if ever smoked [facility] Start: 04-29-2020 Rare [facility] Start: 04-29-2020 None [facility] Start: 04-29-2020 Alone [facility] Start: 07-24-2022 Tobacco Comment vape [facility] Start: 09-18-2022 End: 01-01-2023 Tobacco smoking status NHIS Smokes tobacco daily [facility] Work Phone: Start: 09-18-2022 End: 01-20-2023 Alcohol intake Ex-drinker (finding) [facility] Work Phone: Start: 09-17-2022 End: 11-12-2023 History of Social function [facility] Start: 09-17-2022 End: 11-12-2023 Social Connections [facility] Social Connections and Isolation 0 [facility] Start: 09-18-2022 Tobacco Comment Vape daily 09/18/22 [facility] Work Phone: Start: 09-18-2022 Alcohol Comment denies in tx 09/18/22 [facility] Work Phone: Start: 09-17-2022 Gender identity Identifies as female gender (finding) [facility] Start: 09-17-2022 Sexual orientation Heterosexual (fin ding) [facility] Start: 09-12-2022 End: 09-10-2023 Exposure to SARS-CoV-2 (event) Not sure [facility] Start: 10-22-2022 Tobacco Comment Vape daily 10/22/22 [facility] Work Phone: Start: 10-22-2022 Alcohol Comment denies in tx 10/22/22 [facility] Work Phone: Start: 11-20-2022 Tobacco Comment Vape daily 11/20/22 [facility] Work Phone: Start: 11-20-2022 Alcohol Comment denies in tx 11/20/22 [facility] Work Phone: Start: 12-18-2022 Tobacco Comment Vape daily 12/18/22 [facility] Work Phone: Start: 12-18-2022 Alcohol Comment denies in tx 12/18/22 [facility] Work Phone: Start: 01-01-2023 Tobacco Comment Vape daily 01/01/23 [facility] Work Phone: Start: 01-01-2023 Alcohol Comment denies in tx 01/01/23 [facility] Work Phone: Start: 10-01-2023 [facility] Start: 01-27-2024 Education [facility] Start: 08-28-2024 End: 09-27-2024 Tobacco smoking status NHIS Current some day smoker [facility] Start: 08-28-2024 End: 09-27-2024 Sex Female (finding) [facility] NEGATED: Highlighted row Alcohol intake Alcohol Use Details [facility] Work Phone: NEGATED: Highlighted rowStart: 08-09-2021 History of tobacco use Ex-cigarette smoker [facility] Work Phone: NEGATED: Highlighted row [facility] Goals Date Patient Goal Desired Activity /State Functional Status Date Assessment Result Facility 08-22-2022 Functional status Ambulates [facility] Work Phone: 10-17-2013 Are you deaf, or do you have serious difficulty hearing No 10/17/2013 5:37 PM EDT Lizzy Bartholomew LPN No [facility] 10-17-2013 Are you blind, or do you have serious difficulty seeing, even when wearing glasses No 10/17/2013 5:37 PM EDT Lizzy Bartholomew LPN No [facility] 10-17-2013 Do you have serious difficulty walking or climbing stairs No 10/17/2013 5:37 PM EDT Lizzy Bartholomew LPN No [facility] 10-17-2013 Do you have difficul ty dressing or bathing No 10/17/2013 5:37 PM EDT Lizzy Bartholomew LPN No [facility] 10-17-2013 Because of a physica l, mental, or emotional condition, do you have difficulty doing errands alone such as visiting a physician's office or shopping No 10/17/2013 5:37 PM EDT Lizzy Bartholomew LPN No [facility] Mental Status Date Assessment Result Facility 08-21-2022 Cognitive function Voice/Name [facility] Work Phone: 10-17-2013 Because of a physica l, mental, or emotional condition, do you have serious difficulty concentrating, remembering, or making decisions No 10/17/2013 5:37 PM EDT Lizzy Bartholomew LPN No [facility] Clinical Notes 06-10-2016 to 01-06-2025 Elizabeth Haines MD - 01/06/2025 10:16 AM EDTTelephone Encounter - Juliana Lo RN - 12/29/2024 2:58 PM EDTTelephone Encounter - Juliana Lo RN - 12/29/2024 2:58 PM EDT Note Date & Type Note Facility 01-06-2025 History of Presen t illness Narrative Performance Analyst offered: Patient declines. Andrew Mena is a 29 year old female who presents for problem visit HPI: Is having vaginal discharge and would like to be retested for BV and yeast. Recently treated for BV and yeast Also worried about PCOS and interested in having testing. Regular periods but has hair on her chin that is bothersome. Previous US does not suggest PCOS. 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 History Comments: Sexual Activity: Yes; Male Contraception: Condom PAST MEDICAL HISTORY Diagnosis Date Marijuana use Methamphetamine abuse (HCC) Substance abuse (HCC) PAST SURGICAL HISTORY Procedure Laterality Date NEXPLANON INSERTION Left 02/22/2021 PAST SURGICAL HISTORY OF wisdom teeth FAMILY HISTORY Problem Relation Age of Onset Seizures Maternal Grandmother Social History Tobacco Use Smoking status: Former Types: Cigarettes Smokeless tobacco: Never Tobacco comments: vape Vaping Use Vaping status: Never Used Substance Use Topics Alcohol use: No Drug use: Yes Current Outpatient Medications Medication Sig albuterol HFA (PROVENTIL HFA, VENTOLIN HFA) 90 mcg/actuation inhaler Inhale 2 puffs as instructed every 4 hours as needed for wheezing/shortness of breath. SYMBICORT 80-4.5 mcg/actuation inhaler Inhale 2 Puffs as instructed two times a day. buPROPion XL (WELLBUTRIN XL) 150 mg 24 hr tablet Take 1 tablet by mouth daily. Do not break tablet as it turns it from a long acting medication to a short acting medication. FEROSUL 325 mg (65 mg iron) tablet Take 1 tablet by mouth every 12 hours. ALLERGY RELIEF, LORATADINE, 10 mg tablet Take 10 mg by mouth once daily. albuterol HFA (PROVENTIL HFA, VENTOLIN HFA) 90 mcg/actuation inhaler Inhale 2 Puffs as instructed every 6 hours as needed for wheezing/shortness of breath. cetirizine (ZYRTEC) 10 mg tablet Take 1 tablet by mouth once daily. triamcinolone acetonide (KENALOG) 0.1 % cream Apply to affected area twice daily. For up to 2 weeks at a time. spironolactone (ALDACTONE) 50 mg tablet Take 1 tablet by mouth once daily. zinc oxide (DESITIN) 13 % crea Apply to affected area as needed for up to 7 days. No current facility-administered medications for this visit. Allergies As of Date: 01/06/2025 Allergen Noted Reaction PENICILLINS 08/20/2011 Rash VENOM-HONEY BEE 05/06/2018 Swelling Fully Assessed 12/20/2024 REVIEW OF SYSTEMS Abdomen: No bloating, early satiety, indigestion, or increased flatulence. No abdominal pain, nausea, vomiting, diarrhea, or constipation. Bladder: No dysuria, gross hematuria, urinary frequency, urinary urgency, or incontinence. Breast: No breast lumps, nipple d/c, overlying skin changes, redness or skin retraction. Expanded ROS: N/A Allergies and current medication updated:Yes SENSITIVE EXAM: The sensitive examination was discussed with the Patient or Patient's Authorized Dairy Equipment Mechanic. As applicable, any other physician, advance practice provider, medical student, or other health professional student that will be observing or involved in the sensitive examination for educational or training purposes was discussed with the Patient or Authorized Dairy Equipment Mechanic. The Patient or Authorized Dairy Equipment Mechanic has agreed to proceed with the sensitive examination. (Sensitive examination includes inspection and/or palpation of the breasts, pelvis, prostate and anorectal regions). EXAM: LMP 12/13/2024 GENERAL: pleasant, female in no apparent distress HEENT: Normocephalic, atraumatic, mucus membranes moist, and no lesions NECK: Supple, full range of motion, no adenopathy, and thyroid normal DERMATOLOGY: Normal, without lesions, non-icteric, and non-hirsute BREAST: deferred CHEST: Normal inspiratory effort ABDOMEN: Deferred PELVIC: external genitalia normal, normal Bartholin's glands, urethra, Kent's glands, no vulvar lesions, no cervical lesions, good vaginal support, physiologic discharge present, normal appearing perineal body and perianal region BIMANUAL: uterus normal size, shape and consistency, no adnexal masses, and non-tender NEURO: alert and oriented x3,exam grossly non-focal EXTREMITIES: normal ASSESSMENT AND PLAN: Assessment & Plan Screen for STD (sexually transmitted disease) Vaginal discharge Dysuria Elizabeth Haines MD documented in this encounter [facility] 01-06-2025 Note HNO ID: [id number] Author: ELIZABETH HAINES MD Service: ? Author Type: Physician Type: Progress Notes Filed: 01/10/2025 17:28 Note Text: Performance Analyst offered: Patient declines. Andrew Mena is a 29 year old female who presents for problem visit HPI: Is having vaginal discharge and would like to be retested for BV and yeast. Recently treated for BV and yeast Also worried about PCOS and interested in having testing. Regular periods but has hair on her chin that is bothersome. Previous US does not suggest PCOS. 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 History Comments: Sexual Activity: Yes; Male Contraception: Condom PAST MEDICAL HISTORY Diagnosis Date Marijuana use Methamphetamine abuse (HCC) Substance abuse (HCC) PAST SURGICAL HISTORY Procedure Laterality Date NEXPLANON INSERTION Left 02/22/2021 PAST SURGICAL HISTORY OF wisdom teeth FAMILY HISTORY Problem Relation Age of Onset Seizures Maternal Grandmother Social History Tobacco Use Smoking status: Former Types: Cigarettes Smokeless tobacco: Never Tobacco comments: vape Vaping Use Vaping status: Never Used Substance Use Topics Alcohol use: No Drug use: Yes Current Outpatient Medications Medication Sig albuterol HFA (PROVENTIL HFA, VENTOLIN HFA) 90 mcg/actuation inhaler Inhale 2 puffs as instructed every 4 hours as needed for wheezing/shortness of breath. SYMBICORT 80-4.5 mcg/actuation inhaler Inhale 2 Puffs as instructed two times a day. buPROPion XL (WELLBUTRIN XL) 150 mg 24 hr tablet Take 1 tablet by mouth daily. Do not break tablet as it turns it from a long acting medication to a short acting medication. FEROSUL 325 mg (65 mg iron) tablet Take 1 tablet by mouth every 12 hours. ALLERGY RELIEF, LORATADINE, 10 mg tablet Take 10 mg by mouth once daily. albuterol HFA (PROVENTIL HFA, VENTOLIN HFA) 90 mcg/actuation inhaler Inhale 2 Puffs as instructed every 6 hours as needed for wheezing/shortness of breath. cetirizine (ZYRTEC) 10 mg tablet Take 1 tablet by mouth once daily. triamcinolone acetonide (KENALOG) 0.1 % cream Apply to affected area twice daily. For up to 2 weeks at a time. spironolactone (ALDACTONE) 50 mg tablet Take 1 tablet by mouth once daily. zinc oxide (DESITIN) 13 % crea Apply to affected area as needed for up to 7 days. No current facility-administered medications for this visit. Allergies As of Date: 01/06/2025 Allergen Noted Reaction PENICILLINS 08/20/2011 Rash VENOM-HONEY BEE 05/06/2018 Swelling Fully Assessed 12/20/2024 REVIEW OF SYSTEMS Abdomen: No bloating, early satiety, indigestion, or increased flatulence. No abdominal pain, nausea, vomiting, diarrhea, or constipation. Bladder: No dysuria, gross hematuria, urinary frequency, urinary urgency, or incontinence. Breast: No breast lumps, nipple d/c, overlying skin changes, redness or skin retraction. Expanded ROS: N/A Allergies and current medication updated:Yes SENSITIVE EXAM: The sensitive examination was discussed with the Patient or Patient's Authorized Dairy Equipment Mechanic. As applicable, any other physician, advance practice provider, medical student, or other health professional student that will be observing or involved in the sensitive examination for educational or training purposes was discussed with the Patient or Authorized Dairy Equipment Mechanic. The Patient or Authorized Dairy Equipment Mechanic has agreed to proceed with the sensitive examination. (Sensitive examination includes inspection and/or palpation of the breasts, pelvis, prostate and anorectal regions). EXAM: LMP 12/13/2024 GENERAL: pleasant, female in no apparent distress HEENT: Normocephalic, atraumatic, mucus membranes moist, and no lesions NECK: Supple, full range of motion, no adenopathy, and thyroid normal DERMATOLOGY: Normal, without lesions, non-icteric, and non-hirsute BREAST: deferred CHEST: Normal inspiratory effort ABDOMEN: Deferred PELVIC: external genitalia normal, normal Bartholin's glands, urethra, Kent's glands, no vulvar lesions, no cervical lesions, good vaginal support, physiologic discharge present, normal appearing perineal body and perianal region BIMANUAL: uterus normal size, shape and consistency, no adnexal masses, and non-tender NEURO: alert and oriented x3,exam grossly non-focal EXTREMITIES: normal ASSESSMENT AND PLAN: Assessment AND Plan Screen for STD (sexually transmitted disease) Vaginal discharge Dysuria Elizabeth Haines MD [facility] 12-29-2024 Telephone encounter Note Patient is having dysuria and vaginal discharge x2 weeks. She will keep appt as problem visit tomorrow and wants to discuss control too to make sure Nexplanon is still what she wants. She is aware Nexplanon insertion and annual will both need scheduled yet then. Juliana Lo RN [facility] 12-29-2024 Miscellaneous Notes Patient is having dysuria and vaginal discharge x2 weeks. She will keep appt as problem visit tomorrow and wants to discuss control too to make sure Nexplanon is still what she wants. She is aware Nexplanon insertion and annual will both need scheduled yet then. Juliana Lo RN Attempted to contact patient but no answer and unable to leave a message. Appointment for tomorrow was not scheduled for an annual exam its for est patient. Appointment notes say vaginal discharge and dysuria. Will not be able to address problems and do Nexplanon insertion. Farzaneh Doshi RN We can plan for that Mark Schwarz APRN.CNP Patient called asking if she can get Nexplanon inserted at her appt tomorrow instead of having her annual exam done. She has not been seen for contraception yet, but is positive that is what she wants and would like it antoine. Aware that she will need to schedule annual then for a later date. She has medicaid so referral should be approved once linked to appt. Is that okay to switch it over? Order pending if appropriate. Juliana Lo RN documented in this encounter [facility] 12-29-2024 Telephone encounter Note Attempted to contact patient but no answer and unable to leave a message. Appointment for tomorrow was not scheduled for an annual exam its for est patient. Appointment notes say vaginal discharge and dysuria. Will not be able to address problems and do Nexplanon insertion. Farzaneh Doshi RN [facility] 12-29-2024 Telephone encounter Note We can plan for that Mark Schwarz APRN.SUGAR SAMPLER [facility] 12-29-2024 Telephone encounter Note Patient called asking if she can get Nexplanon inserted at her appt tomorrow instead of having her annual exam done. She has not been seen for contraception yet, but is positive that is what she wants and would like it antoine. Aware that she will need to schedule annual then for a later date. She has medicaid so referral should be approved once linked to appt. Is that okay to switch it over? Order pending if appropriate. Juliana Lo RN [facility] 12-23-2024 Telephone encounter Note Pt was notified of the results. Pt verbalized understanding. Mala Murry MA [facility] 12-23-2024 Miscellaneous Notes Pt was notified of the results. Pt verbalized understanding. Mala Murry MA Please inform patient that vaginal swabs were negative other than positive for yeast. Dejah called the pharmacy. Recommend following up with SUPERVISOR [employer] FINISHING as recurrent yeast Valentin Leahy APRN.SUGAR SAMPLER documented in this encounter [facility] 12-23-2024 Telephone encounter Note Please inform patient that vaginal swabs were negative other than positive for yeast. Dejah called the pharmacy. Recommend following up with [employer]ISH[employer] as recurrent yeast Valentin Leahy APRN.HAROON [facility] 12-20-2024 Note HNO ID: [id number] Author: NATHANIEL MORALES PA Service: ? Author Type: Physician Bulk Intake Worker Type: Progress Notes Filed: 12/20/2024 13:48 Note Text: [facility] Subjective Andrew Mena is a 29 year old female. Patient presents with: Abdominal Pain: Lower pelvic cramping x 4 days, states she is having some soreness in her breasts, HPI Vaginal Discharge and Dysuria: - Recent onset of vaginal discharge and dysuria. - Recent menses ended; experiencing post-menstrual cramping. - Noted burning sensation at night. - Recent treatment for a yeast infection; uncertain if it resolved completely. - Has a assistant engineer but has not been seen recently; plans to schedule an appointment. - Patient has [facility] times in the past month for similar symptoms. Seen 11/29, positive for BV and yeast. Treated accordingly. Seen again 12/08, yeast came back positive. Patient did complete treatment for this. PAST MEDICAL HISTORY Diagnosis Date Marijuana use Methamphetamine abuse (HCC) Substance abuse ([facility]) PAST SURGICAL HISTORY Procedure Laterality Date NEXPLANON INSERTION Left 02/22/2021 PAST SURGICAL HISTORY OF wisdom teeth ALLERGIES Penicillins and Venom-Honey Bee MEDICATIONS SYMBICORT 80-4.5 mcg/actuation inhaler Inhale 2 Puffs as instructed two times a day. buPROPion XL (WELLBUTRIN XL) 150 mg 24 hr tablet Take 1 tablet by mouth daily. Do not break tablet as it turns it from a long acting medication to a short acting medication. FEROSUL 325 mg (65 mg iron) tablet Take 1 tablet by mouth every 12 hours. ALLERGY RELIEF, LORATADINE, 10 mg tablet Take 10 mg by mouth once daily. albuterol HFA (PROVENTIL HFA, VENTOLIN HFA) 90 mcg/actuation inhaler Inhale 2 Puffs as instructed every 6 hours as needed for wheezing/shortness of breath. cetirizine (ZYRTEC) 10 mg tablet Take 1 tablet by mouth once daily. triamcinolone acetonide (KENALOG) 0.1 % cream Apply to affected area twice daily. For up to 2 weeks at a time. spironolactone (ALDACTONE) 50 mg tablet Take 1 tablet by mouth once daily. albuterol HFA (PROVENTIL HFA, VENTOLIN HFA) 90 mcg/actuation inhaler Inhale 2 puffs as instructed every 4 hours as needed for wheezing/shortness of breath. zinc oxide (DESITIN) 13 % crea Apply to affected area as needed for up to 7 days. FAMILY HISTORY Problem Relation Age of Onset Seizures Maternal Grandmother Social History Tobacco Use Smoking status: Former Types: Cigarettes Smokeless tobacco: Never Tobacco comments: vape Vaping Use Vaping status: Never Used Substance Use Topics Alcohol use: No Drug use: Yes Review of Systems Breast: (+) breast pain Gastrointestinal: (+) abdominal pain Genitourinary: (+) pelvic cramping, (+) vaginal burning Objective BP 117/74 Pulse 118 Temp 36.7 ?C (98.1 ?F) Resp 18 Wt 97 kg (213 lb 13.5 oz) LMP 12/13/2024 (Approximate) SpO2 97% BMI 35.63 kg/m? Physical Exam Vitals reviewed. Constitutional: General: She is not in acute distress. Appearance: Normal appearance. She is not toxic-appearing. HENT: Mouth/Throat: Mouth: Mucous membranes are moist. Cardiovascular: Rate and Rhythm: Normal rate and regular rhythm. Pulmonary: Effort: Pulmonary effort is normal. Breath sounds: Normal breath sounds. Abdominal: General: Abdomen is flat. Palpations: Abdomen is soft. Tenderness: There is abdominal tenderness (Mild lower abdominal tenderness). There is no right CVA tenderness, left CVA tenderness, guarding or rebound. Skin: General: Skin is warm and dry. Neurological: Mental Status: She is alert. General: No acute distress. Abd: Mild tenderness to palpation in the upper and lower abdomen. : No tenderness to palpation in the suprapubic region. {1. Dysuria (R30.0) 2. Vaginal discharge (N89.8) - Patient has been seen in [facility] 3 times in the past month for similar symptoms. Seen 11/29, positive for BV and yeast. Treated accordingly. Seen again 12/08, yeast came back positive. Patient did complete treatment for this. - Presents again today for vaginal discharge and dysuria. Swabs obtained. Awaiting results. - Urinalysis negative for infection; test negative. - Scheduled appointment with gynecology in one week for further evaluation. - Will notify patient of swab results within 1-2 days. Recording using GTRAN software for draft documentation of the visit was discussed with the patient/authorized auto claim representative; all questions welcomed and answered. Patient/authorized auto claim representative agreed to proceed History and Record Review External record(s) reviewed: prior outpatient record. Differential Diagnoses - Vaginitis is more likely for the following reason(s): suggested by HANDP - UTI is less likely for the following reason(s): HANDP not suggestive and laboratory studies not suggestive - is less likely for the following reason (more content not included)... [facility] 12-20-2024 History of Presen t illness Narrative [facility] Subjective Andrew Mena is a 29 year old female. Patient presents with: Abdominal Pain: Lower pelvic cramping x 4 days, states she is having some soreness in her breasts, HPI Vaginal Discharge and Dysuria: - Recent onset of vaginal discharge and dysuria. - Recent menses ended; experiencing post-menstrual cramping. - Noted burning sensation at night. - Recent treatment for a yeast infection; uncertain if it resolved completely. - Has a assistant engineer but has not been seen recently; plans to schedule an appointment. - Patient has been seen in [facility] 3 times in the past month for similar symptoms. Seen 11/29, positive for BV and yeast. Treated accordingly. Seen again 12/08, yeast came back positive. Patient did complete treatment for this. PAST MEDICAL HISTORY Diagnosis Date Marijuana use Methamphetamine abuse (HCC) Substance abuse ([facility]) PAST SURGICAL HISTORY Procedure Laterality Date NEXPLANON INSERTION Left 02/22/2021 PAST SURGICAL HISTORY OF wisdom teeth ALLERGIES Penicillins and Venom-Honey Bee MEDICATIONS SYMBICORT 80-4.5 mcg/actuation inhaler Inhale 2 Puffs as instructed two times a day. buPROPion XL (WELLBUTRIN XL) 150 mg 24 hr tablet Take 1 tablet by mouth daily. Do not break tablet as it turns it from a long acting medication to a short acting medication. FEROSUL 325 mg (65 mg iron) tablet Take 1 tablet by mouth every 12 hours. ALLERGY RELIEF, LORATADINE, 10 mg tablet Take 10 mg by mouth once daily. albuterol HFA (PROVENTIL HFA, VENTOLIN HFA) 90 mcg/actuation inhaler Inhale 2 Puffs as instructed every 6 hours as needed for wheezing/shortness of breath. cetirizine (ZYRTEC) 10 mg tablet Take 1 tablet by mouth once daily. triamcinolone acetonide (KENALOG) 0.1 % cream Apply to affected area twice daily. For up to 2 weeks at a time. spironolactone (ALDACTONE) 50 mg tablet Take 1 tablet by mouth once daily. albuterol HFA (PROVENTIL HFA, VENTOLIN HFA) 90 mcg/actuation inhaler Inhale 2 puffs as instructed every 4 hours as needed for wheezing/shortness of breath. zinc oxide (DESITIN) 13 % crea Apply to affected area as needed for up to 7 days. FAMILY HISTORY Problem Relation Age of Onset Seizures Maternal Grandmother Social History Tobacco Use Smoking status: Former Types: Cigarettes Smokeless tobacco: Never Tobacco comments: vape Vaping Use Vaping status: Never Used Substance Use Topics Alcohol use: No Drug use: Yes Review of Systems Breast: (+) breast pain Gastrointestinal: (+) abdominal pain Genitourinary: (+) pelvic cramping, (+) vaginal burning Objective BP 117/74 Pulse 118 Temp 36.7 C (98.1 F) Resp 18 Wt 97 kg (213 lb 13.5 oz) LMP 12/13/2024 (Approximate) SpO2 97% BMI 35.63 kg/m Physical Exam Vitals reviewed. Constitutional: General: She is not in acute distress. Appearance: Normal appearance. She is not toxic-appearing. HENT: Mouth/Throat: Mouth: Mucous membranes are moist. Cardiovascular: Rate and Rhythm: Normal rate and regular rhythm. Pulmonary: Effort: Pulmonary effort is normal. Breath sounds: Normal breath sounds. Abdominal: General: Abdomen is flat. Palpations: Abdomen is soft. Tenderness: There is abdominal tenderness (Mild lower abdominal tenderness). There is no right CVA tenderness, left CVA tenderness, guarding or rebound. Skin: General: Skin is warm and dry. Neurological: Mental Status: She is alert. General: No acute distress. Abd: Mild tenderness to palpation in the upper and lower abdomen. : No tenderness to palpation in the suprapubic region. {1. Dysuria (R30.0) 2. Vaginal discharge (N89.8) - Patient has been seen in [facility] 3 times in the past month for similar symptoms. Seen 11/29, positive for BV and yeast. Treated accordingly. Seen again 12/08, yeast came back positive. Patient did complete treatment for this. - Presents again today for vaginal discharge and dysuria. Swabs obtained. Awaiting results. - Urinalysis negative for infection; test negative. - Scheduled appointment with gynecology in one week for further evaluation. - Will notify patient of swab results within 1-2 days. Recording using GTRAN software for draft documentation of the visit was discussed with the patient/authorized auto claim representative; all questions welcomed and answered. Patient/authorized auto claim representative agreed to proceed History and Record Review External record(s) reviewed: prior outpatient record. Differential Diagnoses - Vaginitis is more likely for the following reason(s): suggested by H&P - UTI is less likely for the following reason(s): H&P not suggestive and laboratory studies not suggestive - is less likely for the following reason(s): H&P not suggestive and laboratory studies not suggestive Disposition The patient was discharged. Procedures documented in this encounter [facility] 12-09-2024 Telephone encounter Note Attempted to call pt, number states unreachable, this nurse sent a [email or web address] message to pt to update her on results. Sarika Britt LPN [facility] 12-09-2024 Miscellaneous Notes Attempted to call pt, number states unreachable, this nurse sent a [email or web address] message to pt to update her on results. Sarika Britt LPN ----- Message from Martha Aguillon APRN.SUGAR SAMPLER sent at 12/09/2024 7:13 AM EDT ----- Please advise patient the vaginal swabs were positive for yeast only. A prescription for diflucan was sent to her pharmacy. documented in this encounter [facility] 12-09-2024 Telephone encounter Note ----- Message from Martha Aguillon APRN.SUGAR SAMPLER sent at 12/09/2024 7:13 AM EDT ----- Please advise patient the vaginal swabs were positive for yeast only. A prescription for diflucan was sent to her pharmacy. [facility] 12-08-2024 Note HNO ID: [id number] Author: VALENTIN LEAHY APRN.HAROON Service: ? Author Type: Nurse Practitioner Type: Progress Notes Filed: 12/08/2024 13:42 Note Text: Subjective HPI Nontoxic-appearing female presents urgent care chief complaint cat scratch on chin. Duration of symptoms 24 hours. States was scratched yesterday evening. Presents today for evaluation. OTC medications none. No bleeding. Tetanus greater than 5 years. Denies any Bites. Additionally has had vaginal discharge. Was seen here 9 days ago. Presents today for testing and STD testing. Concerned about possible STDs due to vaginal discharge. Past medical history prescription medications allergies reviewed .Patient presents with: Animal Bite: Cat scratch on chin x last night PAST MEDICAL HISTORY Diagnosis Date Marijuana use Methamphetamine abuse (HCC) Substance abuse (HCC) PAST SURGICAL HISTORY Procedure Laterality Date NEXPLANON INSERTION Left 02/22/2021 PAST SURGICAL HISTORY OF wisdom teeth ALLERGIES Penicillins and Venom-Honey Bee MEDICATIONS SYMBICORT 80-4.5 mcg/actuation inhaler Inhale 2 Puffs as instructed two times a day. buPROPion XL (WELLBUTRIN XL) 150 mg 24 hr tablet Take 1 tablet by mouth daily. Do not break tablet as it turns it from a long acting medication to a short acting medication. FEROSUL 325 mg (65 mg iron) tablet Take 1 tablet by mouth every 12 hours. ALLERGY RELIEF, LORATADINE, 10 mg tablet Take 10 mg by mouth once daily. albuterol HFA (PROVENTIL HFA, VENTOLIN HFA) 90 mcg/actuation inhaler Inhale 2 Puffs as instructed every 6 hours as needed for wheezing/shortness of breath. cetirizine (ZYRTEC) 10 mg tablet Take 1 tablet by mouth once daily. triamcinolone acetonide (KENALOG) 0.1 % cream Apply to affected area twice daily. For up to 2 weeks at a time. spironolactone (ALDACTONE) 50 mg tablet Take 1 tablet by mouth once daily. zinc oxide (DESITIN) 13 % crea Apply to affected area as needed for up to 7 days. FAMILY HISTORY Problem Relation Age of Onset Seizures Maternal Grandmother Social History Tobacco Use Smoking status: Former Types: Cigarettes Smokeless tobacco: Never Tobacco comments: vape Vaping Use Vaping status: Never Used Substance Use Topics Alcohol use: No Drug use: Yes BP 121/83 Pulse 86 Temp 36.8 ?C (98.3 ?F) Resp 18 Wt 96.5 kg (212 lb 11.9 oz) LMP 11/23/2024 SpO2 100% BMI 35.44 kg/m? Review of Systems Constitutional: Negative for chills, fever and malaise/fatigue. HENT: Negative for congestion, ear discharge, ear pain, sinus pain and sore throat. Eyes: Negative for blurred vision, pain, discharge and redness. Respiratory: Negative for cough, hemoptysis, sputum production, shortness of breath, wheezing and stridor. Cardiovascular: Negative for chest pain. Gastrointestinal: Negative for abdominal pain, constipation, diarrhea, nausea and vomiting. Genitourinary: Negative for dysuria, flank pain, frequency, hematuria and urgency. Vaginal discharge Musculoskeletal: Negative for myalgias. Skin: Negative for itching and rash. Superficial cat scratch noted Neurological: Negative for dizziness and headaches. Objective Physical Exam Constitutional: General: She is not in acute distress. Appearance: She is not diaphoretic. HENT: Head: Normocephalic. Jaw: No trismus, tenderness, swelling or pain on movement. Mouth/Throat: Mouth: Mucous membranes are moist. Pharynx: Oropharynx is clear. Uvula midline. No pharyngeal swelling, oropharyngeal exudate, posterior oropharyngeal erythema or uvula swelling. Eyes: Conjunctiva/sclera: Conjunctivae normal. Pupils: Pupils are equal, round, and reactive to light. Cardiovascular: Rate and Rhythm: Normal rate and regular rhythm. Heart sounds: Normal heart sounds. Pulmonary: Effort: Pulmonary effort is normal. No tachypnea, accessory muscle usage or respiratory distress. Breath sounds: Normal breath sounds. No stridor. No wheezing, rhonchi or rales. Abdominal: General: There is no distension. Palpations: Abdomen is soft. Tenderness: There is no abdominal tenderness. There is no guarding or rebound. Genitourinary: Comments: Vaginal self swab Musculoskeletal: Cervical back: Normal range of motion and neck supple. No edema, erythema, rigidity or tenderness. No pain with movement. Normal range of motion. Lymphadenopathy: Cervical: No cervical adenopathy. Skin: General: Skin is warm and dry. Comments: Superficial scabbed scratch noted highlighted area. No evidence of infection Neurological: Mental Status: She is alert and oriented to person, place, and time. ASSESSMENT/PLAN: 1. Vaginal discharge - ICD9: 623.5, ICD10: N89.8 (primary diagnosis) - EULALIA/TRICHOMONAS NAAT - BACTERIAL VAGINOSIS NAAT - GONORRHEA/CHLAMYDIA NAAT 2. Cat scratch - ICD9: 919.0, E906.8, ICD10: W55.03XA - HCG QUAL UR B/O hCG negative. Cat scratch superficial (more content not included)... [facility] 12-08-2024 History of Presen t illness Narrative Images from the original note were not included. Subjective HPI Nontoxic-appearing female presents urgent care chief complaint cat scratch on chin. Duration of symptoms 24 hours. States was scratched yesterday evening. Presents today for evaluation. OTC medications none. No bleeding. Tetanus greater than 5 years. Denies any Bites. Additionally has had vaginal discharge. Was seen here 9 days ago. Presents today for testing and STD testing. Concerned about possible STDs due to vaginal discharge. Past medical history prescription medications allergies reviewed .Patient presents with: Animal Bite: Cat scratch on chin x last night PAST MEDICAL HISTORY Diagnosis Date Marijuana use Methamphetamine abuse (HCC) Substance abuse ([facility]) PAST SURGICAL HISTORY Procedure Laterality Date NEXPLANON INSERTION Left 02/22/2021 PAST SURGICAL HISTORY OF wisdom teeth ALLERGIES Penicillins and Venom-Honey Bee MEDICATIONS SYMBICORT 80-4.5 mcg/actuation inhaler Inhale 2 Puffs as instructed two times a day. buPROPion XL (WELLBUTRIN XL) 150 mg 24 hr tablet Take 1 tablet by mouth daily. Do not break tablet as it turns it from a long acting medication to a short acting medication. FEROSUL 325 mg (65 mg iron) tablet Take 1 tablet by mouth every 12 hours. ALLERGY RELIEF, LORATADINE, 10 mg tablet Take 10 mg by mouth once daily. albuterol HFA (PROVENTIL HFA, VENTOLIN HFA) 90 mcg/actuation inhaler Inhale 2 Puffs as instructed every 6 hours as needed for wheezing/shortness of breath. cetirizine (ZYRTEC) 10 mg tablet Take 1 tablet by mouth once daily. triamcinolone acetonide (KENALOG) 0.1 % cream Apply to affected area twice daily. For up to 2 weeks at a time. spironolactone (ALDACTONE) 50 mg tablet Take 1 tablet by mouth once daily. zinc oxide (DESITIN) 13 % crea Apply to affected area as needed for up to 7 days. FAMILY HISTORY Problem Relation Age of Onset Seizures Maternal Grandmother Social History Tobacco Use Smoking status: Former Types: Cigarettes Smokeless tobacco: Never Tobacco comments: vape Vaping Use Vaping status: Never Used Substance Use Topics Alcohol use: No Drug use: Yes BP 121/83 Pulse 86 Temp 36.8 C (98.3 F) Resp 18 Wt 96.5 kg (212 lb 11.9 oz) LMP 11/23/2024 SpO2 100% BMI 35.44 kg/m Review of Systems Constitutional: Negative for chills, fever and malaise/fatigue. HENT: Negative for congestion, ear discharge, ear pain, sinus pain and sore throat. Eyes: Negative for blurred vision, pain, discharge and redness. Respiratory: Negative for cough, hemoptysis, sputum production, shortness of breath, wheezing and stridor. Cardiovascular: Negative for chest pain. Gastrointestinal: Negative for abdominal pain, constipation, diarrhea, nausea and vomiting. Genitourinary: Negative for dysuria, flank pain, frequency, hematuria and urgency. Vaginal discharge Musculoskeletal: Negative for myalgias. Skin: Negative for itching and rash. Superficial cat scratch noted Neurological: Negative for dizziness and headaches. Objective Physical Exam Constitutional: General: She is not in acute distress. Appearance: She is not diaphoretic. HENT: Head: Normocephalic. Jaw: No trismus, tenderness, swelling or pain on movement. Mouth/Throat: Mouth: Mucous membranes are moist. Pharynx: Oropharynx is clear. Uvula midline. No pharyngeal swelling, oropharyngeal exudate, posterior oropharyngeal erythema or uvula swelling. Eyes: Conjunctiva/sclera: Conjunctivae normal. Pupils: Pupils are equal, round, and reactive to light. Cardiovascular: Rate and Rhythm: Normal rate and regular rhythm. Heart sounds: Normal heart sounds. Pulmonary: Effort: Pulmonary effort is normal. No tachypnea, accessory muscle usage or respiratory distress. Breath sounds: Normal breath sounds. No stridor. No wheezing, rhonchi or rales. Abdominal: General: There is no distension. Palpations: Abdomen is soft. Tenderness: There is no abdominal tenderness. There is no guarding or rebound. Genitourinary: Comments: Vaginal self swab Musculoskeletal: Cervical back: Normal range of motion and neck supple. No edema, erythema, rigidity or tenderness. No pain with movement. Normal range of motion. Lymphadenopathy: Cervical: No cervical adenopathy. Skin: General: Skin is warm and dry. Comments: Superficial scabbed scratch noted highlighted area. No evidence of infection Neurological: Mental Status: She is alert and oriented to person, place, and time. ASSESSMENT/PLAN: 1. Vaginal discharge - ICD9: 623.5, ICD10: N89.8 (primary diagnosis) - EULALIA/TRICHOMONAS NAAT - BACTERIAL VAGINOSIS NAAT - GONORRHEA/CHLAMYDIA NAAT 2. Cat scratch - ICD9: 919.0, E906.8, ICD10: W55.03XA - HCG QUAL UR B/O hCG negative. Cat scratch superficial. Mupirocin cream sent to pharmacy. Signs and symptoms of infection discussed. Additionally vaginal self swabs obtained. Treat according test results. Patient was educated on supportive therapies. Patient will follow up with primary care provider as needed. Patient was instructed to immediately proceed to emergency room for any new, worsening, or symptoms lasting longer than anticipated. The patient's clinical presentation is otherwise unremarkable at this time. Based on exam and clinical finding, the patient is stable for discharge. Plan of care was discussed with patient. Patient verbalizes understanding and agrees to plan of care. This note was generated using [email or web address] software. It may contain errors in wording, punctuation, or spelling. Valentin Leahy APRN.HAROON documented in this encounter [facility] 12-02-2024 Telephone encounter Note D/t no return phone call and pt not viewing her MyChart this nurse contacted pharmacist and was informed pt had picked up her medication that was prescribed. She picked up on at 5:45 pm Sarika Britt LPN [facility] 12-02-2024 Miscellaneous Notes D/t no return phone call and pt not viewing her MyChart this nurse contacted pharmacist and was informed pt had picked up her medication that was prescribed. She picked up on at 5:45 pm Sarika Britt LPN Attempted to call Pt, tried both #'s on file. Both are non reachable. Will try again later. Mala Murry MA When patient returns call, please let her know urine culture is negative. No UTI. Unable to reach patient and phone message says not reachable.Sharon Montalvo LPN ----- Message from Martha Aguillon APRN.SUGAR SAMPLER sent at 11/30/2024 7:16 AM EDT ----- Please advise patient she tested positive for BV and yeast. Rx for diflucan and flagyl sent to [facility] pharmacy. Avoid alcohol while taking flagyl. Martha Aguillon APRN.HAROON documented in this encounter [facility] 11-30-2024 Telephone encounter Note Attempted to call Pt, tried both #'s on file. Both are non reachable. Will try again later. Mala Murry MA [facility] 11-30-2024 Telephone encounter Note When patient returns call, please let her know urine culture is negative. No UTI. [facility] 11-30-2024 Telephone encounter Note Unable to reach patient and phone message says not reachable.Sharon Montalvo LPN [facility] 11-30-2024 Telephone encounter Note ----- Message from Martha Aguillon APRN.SUGAR SAMPLER sent at 11/30/2024 7:16 AM EDT ----- Please advise patient she tested positive for BV and yeast. Rx for diflucan and flagyl sent to [facility] pharmacy. Avoid alcohol while taking flagyl. Martha Aguillon APRN.SUGAR SAMPLER [facility] 11-29-2024 Note HNO ID: [id number] Author: NATHANIEL MORALES PA Service: ? Author Type: Physician Bulk Intake Worker Type: Progress Notes Filed: 11/29/2024 09:35 Note Text: [facility] Subjective Andrew Mena is a 29 year old female. Patient presents with: Vaginal Problem: States burning, lower back pain and wants STD testing HPI 29-year-old female presents for multiple complaints. Patient states that she has been having low back pain for the past couple of days. Pain worse with movement. No fall or injury. No numbness or tingling in the legs. No loss of bowel or bladder function. No fevers. Patient would also like STD testing and have her urine tested for UTI. She has a little bit of burning with urination. No vaginal discharge. No rash. No pelvic pain. No blood in the urine. No vomiting or fevers. She was seen here a few months ago and treated for yeast infection which she states all of those symptoms resolved. No concern for , LMP was 1 week ago. No other complaint PAST MEDICAL HISTORY Diagnosis Date Marijuana use Methamphetamine abuse ([facility]) Substance abuse ([facility]) PAST SURGICAL HISTORY Procedure Laterality Date NEXPLANON INSERTION Left 02/22/2021 PAST SURGICAL HISTORY OF wisdom teeth ALLERGIES Penicillins and Venom-Honey Bee MEDICATIONS SYMBICORT 80-4.5 mcg/actuation inhaler Inhale 2 Puffs as instructed two times a day. buPROPion XL (WELLBUTRIN XL) 150 mg 24 hr tablet Take 1 tablet by mouth daily. Do not break tablet as it turns it from a long acting medication to a short acting medication. FEROSUL 325 mg (65 mg iron) tablet Take 1 tablet by mouth every 12 hours. ALLERGY RELIEF, LORATADINE, 10 mg tablet Take 10 mg by mouth once daily. albuterol HFA (PROVENTIL HFA, VENTOLIN HFA) 90 mcg/actuation inhaler Inhale 2 Puffs as instructed every 6 hours as needed for wheezing/shortness of breath. cetirizine (ZYRTEC) 10 mg tablet Take 1 tablet by mouth once daily. triamcinolone acetonide (KENALOG) 0.1 % cream Apply to affected area twice daily. For up to 2 weeks at a time. spironolactone (ALDACTONE) 50 mg tablet Take 1 tablet by mouth once daily. zinc oxide (DESITIN) 13 % crea Apply to affected area as needed for up to 7 days. FAMILY HISTORY Problem Relation Age of Onset Seizures Maternal Grandmother Social History Tobacco Use Smoking status: Former Types: Cigarettes Smokeless tobacco: Never Tobacco comments: vape Vaping Use Vaping status: Never Used Substance Use Topics Alcohol use: No Drug use: Yes Review of Systems Constitutional: Negative for chills and fever. Gastrointestinal: Negative for abdominal pain, diarrhea and vomiting. Genitourinary: Positive for dysuria, frequency and urgency. Negative for vaginal discharge. Musculoskeletal: Positive for back pain. Objective BP 112/90 Pulse 97 Temp 36.4 ?C (97.6 ?F) Resp 18 Wt 96 kg (211 lb 10.3 oz) LMP 11/23/2024 SpO2 97% BMI 35.26 kg/m? Physical Exam Vitals and nursing note reviewed. Constitutional: General: She is not in acute distress. Appearance: Normal appearance. She is not toxic-appearing. HENT: Mouth/Throat: Mouth: Mucous membranes are moist. Cardiovascular: Rate and Rhythm: Normal rate and regular rhythm. Pulmonary: Effort: Pulmonary effort is normal. Breath sounds: Normal breath sounds. Abdominal: General: Abdomen is flat. Palpations: Abdomen is soft. Tenderness: There is no abdominal tenderness. There is no right CVA tenderness, left CVA tenderness, guarding or rebound. Genitourinary: Comments: Deferred by patient Musculoskeletal: Lumbar back: Spasms and tenderness present. No bony tenderness. Normal range of motion. Negative right straight leg raise test and negative left straight leg raise test. Comments: Tenderness over lumbar paraspinal muscles with spasm present. No midline tenderness. No bony step-off or deformity. Negative seated straight leg raise. Skin: General: Skin is warm and dry. Neurological: Mental Status: She is alert. {ASSESSMENT/PLAN: ASSESSMENT/PLAN: 1. Screening for STD (sexually transmitted disease) - ICD9: V74.5, ICD10: Z11.3 (primary diagnosis) - GONORRHEA/CHLAMYDIA NAAT - EULALIA/TRICHOMONAS NAAT - BACTERIAL VAGINOSIS NAAT - Patient deferred exam, self swab 2. Burning with urination - ICD9: 788.1, ICD10: R30.0 Acute -UA negative will send for culture - Send urine for culture - Patient education for prevention given - UA DIP, URINE (POC) - BACTERIAL CULTURE, URINE - EULALIA/TRICHOMONAS NAAT - BACTERIAL VAGINOSIS NAAT 3. Acute bilateral low back pain without sciatica - ICD9: 724.2, 338.19, ICD10: M54.50 -Suspect back pain more muscular, tenderness on exam, pain worse with movement - Rx for Robaxin. Advised not to drive while taking this medication as it may cause drowsiness. - May continue OTC NSAIDs or Tylenol as needed for pain Diagnosis and treatment plan were discussed (more content not included)... [facility] 11-29-2024 History of Presen t illness Narrative [facility] Subjective Andrew Mena is a 29 year old female. Patient presents with: Vaginal Problem: States burning, lower back pain and wants STD testing HPI 29-year-old female presents for multiple complaints. Patient states that she has been having low back pain for the past couple of days. Pain worse with movement. No fall or injury. No numbness or tingling in the legs. No loss of bowel or bladder function. No fevers. Patient would also like STD testing and have her urine tested for UTI. She has a little bit of burning with urination. No vaginal discharge. No rash. No pelvic pain. No blood in the urine. No vomiting or fevers. She was seen here a few months ago and treated for yeast infection which she states all of those symptoms resolved. No concern for , LMP was 1 week ago. No other complaint PAST MEDICAL HISTORY Diagnosis Date Marijuana use Methamphetamine abuse ([facility]) Substance abuse ([facility]) PAST SURGICAL HISTORY Procedure Laterality Date NEXPLANON INSERTION Left 02/22/2021 PAST SURGICAL HISTORY OF wisdom teeth ALLERGIES Penicillins and Venom-Honey Bee MEDICATIONS SYMBICORT 80-4.5 mcg/actuation inhaler Inhale 2 Puffs as instructed two times a day. buPROPion XL (WELLBUTRIN XL) 150 mg 24 hr tablet Take 1 tablet by mouth daily. Do not break tablet as it turns it from a long acting medication to a short acting medication. FEROSUL 325 mg (65 mg iron) tablet Take 1 tablet by mouth every 12 hours. ALLERGY RELIEF, LORATADINE, 10 mg tablet Take 10 mg by mouth once daily. albuterol HFA (PROVENTIL HFA, VENTOLIN HFA) 90 mcg/actuation inhaler Inhale 2 Puffs as instructed every 6 hours as needed for wheezing/shortness of breath. cetirizine (ZYRTEC) 10 mg tablet Take 1 tablet by mouth once daily. triamcinolone acetonide (KENALOG) 0.1 % cream Apply to affected area twice daily. For up to 2 weeks at a time. spironolactone (ALDACTONE) 50 mg tablet Take 1 tablet by mouth once daily. zinc oxide (DESITIN) 13 % crea Apply to affected area as needed for up to 7 days. FAMILY HISTORY Problem Relation Age of Onset Seizures Maternal Grandmother Social History Tobacco Use Smoking status: Former Types: Cigarettes Smokeless tobacco: Never Tobacco comments: vape Vaping Use Vaping status: Never Used Substance Use Topics Alcohol use: No Drug use: Yes Review of Systems Constitutional: Negative for chills and fever. Gastrointestinal: Negative for abdominal pain, diarrhea and vomiting. Genitourinary: Positive for dysuria, frequency and urgency. Negative for vaginal discharge. Musculoskeletal: Positive for back pain. Objective BP 112/90 Pulse 97 Temp 36.4 C (97.6 F) Resp 18 Wt 96 kg (211 lb 10.3 oz) LMP 11/23/2024 SpO2 97% BMI 35.26 kg/m Physical Exam Vitals and nursing note reviewed. Constitutional: General: She is not in acute distress. Appearance: Normal appearance. She is not toxic-appearing. HENT: Mouth/Throat: Mouth: Mucous membranes are moist. Cardiovascular: Rate and Rhythm: Normal rate and regular rhythm. Pulmonary: Effort: Pulmonary effort is normal. Breath sounds: Normal breath sounds. Abdominal: General: Abdomen is flat. Palpations: Abdomen is soft. Tenderness: There is no abdominal tenderness. There is no right CVA tenderness, left CVA tenderness, guarding or rebound. Genitourinary: Comments: Deferred by patient Musculoskeletal: Lumbar back: Spasms and tenderness present. No bony tenderness. Normal range of motion. Negative right straight leg raise test and negative left straight leg raise test. Comments: Tenderness over lumbar paraspinal muscles with spasm present. No midline tenderness. No bony step-off or deformity. Negative seated straight leg raise. Skin: General: Skin is warm and dry. Neurological: Mental Status: She is alert. {ASSESSMENT/PLAN: ASSESSMENT/PLAN: 1. Screening for STD (sexually transmitted disease) - ICD9: V74.5, ICD10: Z11.3 (primary diagnosis) - GONORRHEA/CHLAMYDIA NAAT - EULALIA/TRICHOMONAS NAAT - BACTERIAL VAGINOSIS NAAT - Patient deferred exam, self swab 2. Burning with urination - ICD9: 788.1, ICD10: R30.0 Acute -UA negative will send for culture - Send urine for culture - Patient education for prevention given - UA DIP, URINE (POC) - BACTERIAL CULTURE, URINE - EULALIA/TRICHOMONAS NAAT - BACTERIAL VAGINOSIS NAAT 3. Acute bilateral low back pain without sciatica - ICD9: 724.2, 338.19, ICD10: M54.50 -Suspect back pain more muscular, tenderness on exam, pain worse with movement - Rx for Robaxin. Advised not to drive while taking this medication as it may cause drowsiness. - May continue OTC NSAIDs or Tylenol as needed for pain Diagnosis and treatment plan were discussed and questions were answered to the patient's satisfaction. Pt acknowledged understanding of concepts and follow up plan. Specific signs and symptoms that would indicate the need for higher level of care were discussed in detail warranting prompt ER evaluation. MIKAEL Thakur History and Record Review External record(s) reviewed: prior outpatient record. Differential Diagnoses - Musculoskeletal low back pain is more likely for the following reason(s): suggested by H&P - Pyelonephritis is less likely for the following reason(s): laboratory studies not suggestive and H&P not suggestive - UTI is less likely for the following reason(s): laboratory studies not suggestive Disposition The patient was discharged. OTC Medications were advised: Tylenol/Motrin Procedures documented in this encounter [facility] 09-27-2024 Radiology Diagnostic study note [facility] Services [address] [place] [address] [id number] Abdomen/Pelvis without Cont MR#: [id number] Acct: [id number] Name: ANDREW MENA Rep #: [id number] : 1995 F 29 From: Dora Shelton MD PCP: Stephany Bae DO Status: REG ER Study:Abdomen/Pelvis without Cont Date of Exa m: 09/27/24 Exam# [id number] Ordering Dr: Susanna Rodriguez DO PROCEDURE: ABDOMEN/PELVIS WITHOUT CONT 09/27/2024 REASON FOR EXAM: PAIN TECHNIQUE: Abdomen and pelvis CT without intravenous contrast. Noncontrast technique limits evaluation of the abdominal and pelvic viscera. Coronal and Sagittal reformats were provided. One or more dose reduction techniques were used (e.g., Automated exposure control, adjustment of the mA and/or kV according to patient size, use of iterative reconstruction technique). PATIENT PREPARATION: Per protocol ORAL CONTRAST TYPE: None. AMOUNT: mL COMPARISON: None RADIATION DOSE SUMMARY: CTDlvol: 19.12 mGy DLP: 1050.99 mGycm One or more dose reduction techniques were used (e.g., Automated exposure control, adjustment of the mA and/or kV according to patient size, use of iterative reconstruction technique). FINDINGS: Note that evaluation of the abdominopelvic viscera, vasculature, and remaining soft tissues is limited in the absence of IV contrast. Lung bases: Atelectasis/scarring.. Liver: Unremarkable. Spleen: Unremarkable. Gallbladder: Faint high-density layering possible sludge versus noncalcified stones. Pancreas: Unremarkable. Adrenals: Punctate high-density but noncalcified focus at the RIGHT upper pole, too small to characterize, statistically likely a hemorrhagic or proteinaceous cyst. Kidneys: Unremarkable. Bowel: Unremarkable. Normal caliber appendix. Lymph nodes: Unremarkable. Vasculature: Unremarkable. Peritoneum: Unremarkable. Bladder: Underdistended and suboptimally evaluated, grossly unremarkable. Reproductive Organs: Unremarkable. Body Wall: Unremarkable. Bones: Unremarkable. CT/Abdomen/Pelvis without Cont IMPRESSION: 1. No acute noncontrast findings. 2. Additional description as above. Reading Location: [id number] CC: Dr. Allan Rodriguez, DO; Stephany Bae, DO ~ Aircraft Systems Repairer: Signed [facility] 09-20-2024 Telephone encounter Note My chart message sent as Pt is active on her Mychart and had seen her results 09/20/24. Sarika Britt LPN [facility] 09-20-2024 Miscellaneous Notes My chart message sent as Pt is active on her Mychart and had seen her results 09/20/24. Sarika Britt LPN documented in this encounter [facility] 09-19-2024 Note HNO ID: [id number] Author: NATHANIEL MORALES PA Service: ? Author Type: Physician Bulk Intake Worker Type: Progress Notes Filed: 09/19/2024 10:10 Note Text: [facility] Subjective Andrew Mena is a 29 year old female. Patient presents with: Vaginal Discharge: discharge, std check and hcg test HPI 29-year-old female presents for vaginal discharge. She would like an STD check and a test. Patient states she has had vaginal discharge for the past week or so. It is yellow. She states she slept with her partner who did test positive for chlamydia and gonorrhea. She states that he was treated for this. She was also seen here earlier this month and treated for chlamydia/gonorrhea. Her test results were all negative. Patient states that she had intercourse with this partner again and would like retested. She states she has some yellow vaginal discharge. No itching. No abdominal pain, fevers, vomiting, blood in the urine. No dysuria. She is unsure of when her LMP was. She states she does not keep track. She would like a test as well. PAST MEDICAL HISTORY Diagnosis Date Marijuana use Methamphetamine abuse ([facility]) Substance abuse ([facility]) PAST SURGICAL HISTORY Procedure Laterality Date NEXPLANON INSERTION Left 02/22/2021 PAST SURGICAL HISTORY OF wisdom teeth ALLERGIES Penicillins and Venom-Honey Bee MEDICATIONS SYMBICORT 80-4.5 mcg/actuation inhaler Inhale 2 Puffs as instructed two times a day. buPROPion XL (WELLBUTRIN XL) 150 mg 24 hr tablet Take 1 tablet by mouth daily. Do not break tablet as it turns it from a long acting medication to a short acting medication. FEROSUL 325 mg (65 mg iron) tablet Take 1 tablet by mouth every 12 hours. ALLERGY RELIEF, LORATADINE, 10 mg tablet Take 10 mg by mouth once daily. albuterol HFA (PROVENTIL HFA, VENTOLIN HFA) 90 mcg/actuation inhaler Inhale 2 Puffs as instructed every 6 hours as needed for wheezing/shortness of breath. cetirizine (ZYRTEC) 10 mg tablet Take 1 tablet by mouth once daily. triamcinolone acetonide (KENALOG) 0.1 % cream Apply to affected area twice daily. For up to 2 weeks at a time. spironolactone (ALDACTONE) 50 mg tablet Take 1 tablet by mouth once daily. zinc oxide (DESITIN) 13 % crea Apply to affected area as needed for up to 7 days. FAMILY HISTORY Problem Relation Age of Onset Seizures Maternal Grandmother Social History Tobacco Use Smoking status: Former Types: Cigarettes Smokeless tobacco: Never Tobacco comments: vape Vaping Use Vaping status: Never Used Substance Use Topics Alcohol use: No Drug use: Yes Review of Systems Constitutional: Negative for chills and fever. HENT: Negative for congestion, ear pain and sore throat. Respiratory: Negative for cough and shortness of breath. Cardiovascular: Negative for chest pain. Gastrointestinal: Negative for abdominal pain, diarrhea and vomiting. Genitourinary: Positive for menstrual problem and vaginal discharge. Negative for dysuria and pelvic pain. Objective BP 122/80 Pulse 118 Temp 36.8 ?C (98.3 ?F) Resp 18 Wt 100.5 kg (221 lb 9 oz) LMP 07/31/2024 SpO2 97% BMI 36.91 kg/m? Physical Exam Vitals and nursing note reviewed. Constitutional: General: She is not in acute distress. Appearance: Normal appearance. She is not toxic-appearing. HENT: Nose: Nose normal. Mouth/Throat: Mouth: Mucous membranes are moist. Eyes: Conjunctiva/sclera: Conjunctivae normal. Cardiovascular: Rate and Rhythm: Normal rate and regular rhythm. Pulmonary: Effort: Pulmonary effort is normal. Breath sounds: Normal breath sounds. Abdominal: General: Abdomen is flat. Palpations: Abdomen is soft. Tenderness: There is no abdominal tenderness. There is no right CVA tenderness, left CVA tenderness, guarding or rebound. Genitourinary: Comments: Deferred by patient Skin: General: Skin is warm and dry. Neurological: Mental Status: She is alert. {ASSESSMENT/PLAN: 1. Missed menses - ICD9: 626.4, ICD10: N92.6 (primary diagnosis)= - HCG QUAL UR B/O- negative 2. Vaginal discharge - ICD9: 623.5, ICD10: N89.8 - EULALIA/TRICHOMONAS NAAT - BACTERIAL VAGINOSIS NAAT - GONORRHEA/CHLAMYDIA NAAT -Please treat based on result Diagnosis and treatment plan were discussed and questions were answered to the patient's satisfaction. Pt acknowledged understanding of concepts and follow up plan. Specific signs and symptoms that would indicate the need for higher level of care were discussed in detail warranting prompt ER evaluation. MIKAEL Thakur History and Record Review External record(s) reviewed: prior outpatient record. Differential Diagnoses - Vaginitis is more likely for the following reason(s): suggested by HANDP - UTI/pyelonephritis is less likely for the following reason(s): HANDP not suggestive - is less likely for the following reason(s): laboratory studies not suggestive (more content not included)... [facility] 09-19-2024 History of Presen t illness Narrative [facility] Subjective Andrew Mena is a 29 year old female. Patient presents with: Vaginal Discharge: discharge, std check and hcg test HPI 29-year-old female presents for vaginal discharge. She would like an STD check and a test. Patient states she has had vaginal discharge for the past week or so. It is yellow. She states she slept with her partner who did test positive for chlamydia and gonorrhea. She states that he was treated for this. She was also seen here earlier this month and treated for chlamydia/gonorrhea. Her test results were all negative. Patient states that she had intercourse with this partner again and would like retested. She states she has some yellow vaginal discharge. No itching. No abdominal pain, fevers, vomiting, blood in the urine. No dysuria. She is unsure of when her LMP was. She states she does not keep track. She would like a test as well. PAST MEDICAL HISTORY Diagnosis Date Marijuana use Methamphetamine abuse ([facility]) Substance abuse ([facility]) PAST SURGICAL HISTORY Procedure Laterality Date NEXPLANON INSERTION Left 02/22/2021 PAST SURGICAL HISTORY OF wisdom teeth ALLERGIES Penicillins and Venom-Honey Bee MEDICATIONS SYMBICORT 80-4.5 mcg/actuation inhaler Inhale 2 Puffs as instructed two times a day. buPROPion XL (WELLBUTRIN XL) 150 mg 24 hr tablet Take 1 tablet by mouth daily. Do not break tablet as it turns it from a long acting medication to a short acting medication. FEROSUL 325 mg (65 mg iron) tablet Take 1 tablet by mouth every 12 hours. ALLERGY RELIEF, LORATADINE, 10 mg tablet Take 10 mg by mouth once daily. albuterol HFA (PROVENTIL HFA, VENTOLIN HFA) 90 mcg/actuation inhaler Inhale 2 Puffs as instructed every 6 hours as needed for wheezing/shortness of breath. cetirizine (ZYRTEC) 10 mg tablet Take 1 tablet by mouth once daily. triamcinolone acetonide (KENALOG) 0.1 % cream Apply to affected area twice daily. For up to 2 weeks at a time. spironolactone (ALDACTONE) 50 mg tablet Take 1 tablet by mouth once daily. zinc oxide (DESITIN) 13 % crea Apply to affected area as needed for up to 7 days. FAMILY HISTORY Problem Relation Age of Onset Seizures Maternal Grandmother Social History Tobacco Use Smoking status: Former Types: Cigarettes Smokeless tobacco: Never Tobacco comments: vape Vaping Use Vaping status: Never Used Substance Use Topics Alcohol use: No Drug use: Yes Review of Systems Constitutional: Negative for chills and fever. HENT: Negative for congestion, ear pain and sore throat. Respiratory: Negative for cough and shortness of breath. Cardiovascular: Negative for chest pain. Gastrointestinal: Negative for abdominal pain, diarrhea and vomiting. Genitourinary: Positive for menstrual problem and vaginal discharge. Negative for dysuria and pelvic pain. Objective BP 122/80 Pulse 118 Temp 36.8 C (98.3 F) Resp 18 Wt 100.5 kg (221 lb 9 oz) LMP 07/31/2024 SpO2 97% BMI 36.91 kg/m Physical Exam Vitals and nursing note reviewed. Constitutional: General: She is not in acute distress. Appearance: Normal appearance. She is not toxic-appearing. HENT: Nose: Nose normal. Mouth/Throat: Mouth: Mucous membranes are moist. Eyes: Conjunctiva/sclera: Conjunctivae normal. Cardiovascular: Rate and Rhythm: Normal rate and regular rhythm. Pulmonary: Effort: Pulmonary effort is normal. Breath sounds: Normal breath sounds. Abdominal: General: Abdomen is flat. Palpations: Abdomen is soft. Tenderness: There is no abdominal tenderness. There is no right CVA tenderness, left CVA tenderness, guarding or rebound. Genitourinary: Comments: Deferred by patient Skin: General: Skin is warm and dry. Neurological: Mental Status: She is alert. {ASSESSMENT/PLAN: 1. Missed menses - ICD9: 626.4, ICD10: N92.6 (primary diagnosis)= - HCG QUAL UR B/O- negative 2. Vaginal discharge - ICD9: 623.5, ICD10: N89.8 - EULALIA/TRICHOMONAS NAAT - BACTERIAL VAGINOSIS NAAT - GONORRHEA/CHLAMYDIA NAAT -Please treat based on result Diagnosis and treatment plan were discussed and questions were answered to the patient's satisfaction. Pt acknowledged understanding of concepts and follow up plan. Specific signs and symptoms that would indicate the need for higher level of care were discussed in detail warranting prompt ER evaluation. MIKAEL Thakur History and Record Review External record(s) reviewed: prior outpatient record. Differential Diagnoses - Vaginitis is more likely for the following reason(s): suggested by H&P - UTI/pyelonephritis is less likely for the following reason(s): H&P not suggestive - is less likely for the following reason(s): laboratory studies not suggestive Disposition The patient was discharged. Procedures documented in this encounter [facility] 08-28-2024 Discharge summary [facility] 08-28-2024 Discharge summary Note Date/Time August 28, 2024 6:46pm [facility] Medical Records Department [address] [place] [address] Emergency Department Summary 08/28/24 MR#: [id number] Acct: [id number] Name: ANDREW MENA Rep #:[id number] : 1995 29 From: Bill Carrillo MD PCP: Stephany Bae DO Status:REG ER Location: ED HPI HPI - URI History of Present Illness Chief Complaint: Ear Problem Detail of Chief Complaint: Bilateral ear pain for 3 days. No trauma. Informant: patient Onset/Context/Timing Onset: Days Context: Gradual Onset Timing: Continuous Current Severity: Mild Maximum Severity: Mild Narrative Narrative: 29-year-old female no seen past medical history. Complaining of earache initially left now both. No trauma. She has not been swelling. No fever or sore throat. Prior similar symptoms: Yes Recent Illness/Hospitalization: No ROS ROS ED ROS Narrative Bilateral ear discomfort. No other symptoms. Constitutional Constitutional ED: Denies fever(s) Eyes Eyes: Denies blurry vision ENT ENT ED: Reports ear pain; Denies rhinorrhea or sore throat Cardiovascular Cardiovascular: Denies chest pain or palpitations Respiratory/Chest Respiratory/Chest: Denies cough or dyspnea Gastrointestinal Gastrointestinal: Denies abdominal pain, diarrhea, nausea or vomiting Genitourinary Genitourinary ED: Denies dysuria or hematuria Musculoskeletal Musculoskeletal: Denies arthralgias Integumentary Denies abscess Neurologic Neurologic: Denies headache(s) Psychiatric Psychiatric: Denies anxiety Endocrine Endocrinology: Denies cold intolerance Hematologic/Lymphatic Hematologic/Lymphatic: Denies easy bleeding Allergic/Immunologic Allergic/Immunologic ED: Denies mouth swelling, tongue swelling or urticaria PFSH PFSH Medical History Alcohol withdrawal Obesity (BMI 30-39.9) Vaginal discharge Seasonal allergies Asthma Home Medications ?Medication ?Instructions ?Recorded ?Last Taken ?Type albuterol sulfate 90 mcg/actuation 1 inh inhalation Q6 H PRN shortness 02/13/21 08/11/22 Rx aerosol inhaler of breath or wheezing #8.5 g matilde loratadine 10 mg tablet (Allergy 10 mg PO DAILY Check with primary 08/18/22 08/18/22 History Relief (loratadine)) doctor albuterol sulfate 90 mcg/actuation 1 - 2 puff inhalati on Q4H PRN PRN 02/29/24 Unknown Rx aerosol inhaler (Ventolin HFA) Wheezing ##1 cephalexin 500 mg capsule 500 mg PO Q12 #14 CAPSULES 0 02/29/24 Unknown Rx fluconazole 150 mg tablet 150 mg PO X1 PRN yeast 1 dos e #2 02/29/24 Unknown Rx tabs loratadine 10 mg tablet (Claritin) 10 mg PO DAILY #30 tabs 02/29/24 Unknown Rx albuterol sulfate 90 mcg/actuation 1 - 2 puff inhalati on Q4H PRN PRN 03/24/24 Unknown Rx aerosol inhaler (Ventolin HFA) Wheezing ##1 fluconazole 150 mg tablet 150 mg PO Q3D 2 doses #2 tab s 03/24/24 Unknown Rx metronidazole 500 mg tablet 500 mg PO BID 7 days #14 t abs 03/24/24 Unknown Rx fluconazole 150 mg tablet 150 mg PO Q3D 2 doses #2 tab s 05/18/24 Unknown Rx metronidazole 500 mg tablet 500 mg PO BID 7 days #14 t abs 05/18/24 Unknown Rx azithromycin 250 mg tablet 250 mg PO DAILY 4 days #4 t abs 08/28/24 Unknown Rx (Zithromax) Allergy/AdvReac Type Severity Reaction Status Date / Time penicillin G Allergy Mild Hives Verified 08/28/24 18:30 venom-honey bee (bee venom Allergy Swelling Verified 08/28/24 18:30 (honey bee)) Family History Grandmother Asthma Arthritis Surgical History History of wisdom tooth extraction Social History Smoking Status: Current some day smoker tobacco type: cigarettes alcohol intake: never substance use type: does not use what type of physical activity do you participate in: walking frequency: 5-6 times per week EXAM Physical Exam Narrative Exam Narrative: Well-appearing 29-year-old female. Vital signs stable afebrile. Sitting upright in bed. No distress. HEENT exam pupils round reactive light. Moist mucous membranes. Posterior pharynx normal. No erythema or exudate. No trouble swallowing or breathing. Left TM dull red and retracted. No perforation. Canal unremarkable. Right TM dull red and retracted also. No perforation. Canal unremarkable. Consistent with bilateral otitis media. Neckmild eustachian tube tenderness. No lymphadenopathy. Lungs clear to auscultation bilaterally. Heart regular rhythm no murmur. Rate about 60. Chest wall nontender. Abdomen soft nontender. Moving all 4 extremities. Normal strength. Nontender no edema. Neurologically she is awake and alert no focal motor deficits. Const Vital Signs: 08/28/24 18:28 Temperature 98.1 F Temperature Source Temporal Pulse Rate 55 L Respiratory Rate 16 Blood Pressure 127/82 H Blood Pressure Mean 97 Pulse Ox 92 Oxygen Delivery Method Room Air Positive well nourished and well developed; Negative for cachectic or contractures General Appearance ED: well developed and NAD; Negative for cachectic, contractures, cyanotic, diaphoretic or pallor Nutritional Appearance: Negative for cachectic HEENT Reports moist mucous membranes HEENT Narrative: Bilateral TMs dull, red and retracted. No perforation. Canal unremarkable. normocephalic Throat: posterior oropharynx normal Eyes PERRL and EOMs intact bilaterally Neck no lymphadenopathy, supple, no meningeal signs and no JVD General: Negative for anterior neck swelling or lymphadenopathy Resp normal respiratory effort and clear to auscultation bilaterally Cardio S1 normal heart sound, S2 normal heart sound and no murmurs Rate: regular rate Rhythm: regular rhythm GI non-tender, non-distended and no masses Auscultation: normoactive bowel sounds Palpation: soft; Negative for tender, guarding or hepatomegaly Back/Spine no CVA tenderness and normal ROM General Back: Negative for CVA tenderness Cervical Spine: Negative for cervical spine tenderness Thoracic Spine / Upper Back: Negative for thoracic spinal tenderness Lumbar Spine / Lower Back: Negative for lumbar spinal tenderness Sacrum: Negative for tenderness Extremity full ROM General Extremety ED: Negative for tenderness Neuro oriented x3 and CN's II-XII intact bilaterally Sensorium / Orientation: alert, oriented to person, oriented to place and oriented to time; Negative for orientation impaired, lethargic or stuporous Motor Exam: strength 5/5 throughout Psych mental status grossly normal Appearance: Negative for other Attitude: No agitated Mood & Affect: Negative for depressed, anxious or tearful Skin General Skin Exam: Negative for jaundice or pallor Lesions: no lesions Rashes: no rashes MDM MDM MDM Narrative Medical decision making narrative: 29-year-old female complaining bilateral ear aches. Exam consistent with otitismedia. She has a penicillin allergy. She be placed on Zithromax. First dose here. Motrin and Tylenol for pain. Outpatient follow-up as needed. Discharge Plan Triage Chief Complaint: Ear Problem ED Provider: Bill Carrillo Dx/Rx/DC Orders Clinical Impression: Bilateral acute otitis media Instructions: ED Otitis Media Adult Prescriptions: New azithromycin [Zithromax] 250 mg tablet 250 mg PO DAILY 4 Days Qty: 4 0RF Rx Instructions: start on day 2 of therapy No Action albuterol sulfate 90 mcg/actuation HFA aerosol inhaler 1 inh inhalation Q6H PRN (Reason: shortness of breath or wheezing) Qty: 8.5 3RF loratadine [Allergy Relief (loratadine)] 10 mg tablet 10 mg PO DAILY cephalexin 500 mg capsule 500 mg PO Q12 Qty: 14 0RF albuterol sulfate [Ventolin HFA] 90 mcg/actuation HFA aerosol inhaler 1 - 2 puff inhalation Q4H PRN PRN (Reason: Wheezing) Qty: 1 0RF loratadine [Claritin] 10 mg tablet 10 mg PO DAILY Qty: 30 0RF fluconazole 150 mg tablet 150 mg PO X1 PRN (Reason: yeast) Qty: 2 0RF Rx Instructions: administer on day 1 of therapy. repeat in 1 week if needed. metronidazole 500 mg tablet 500 mg PO BID 7 Days Qty: 14 0RF fluconazole 150 mg tablet 150 mg PO Q3D Qty: 2 0RF Rx Instructions: may repeat second dose 72 hrs after first dose if symptoms persist albuterol sulfate [Ventolin HFA] 90 mcg/actuation HFA aerosol inhaler 1 - 2 puff inhalation Q4H PRN PRN (Reason: Wheezing) Qty: 1 0RF metronidazole 500 mg tablet 500 mg PO BID 7 Days Qty: 14 0RF fluconazole 150 mg tablet 150 mg PO Q3D Qty: 2 0RF Rx Instructions: take first dose after completion of antibiotics. May take another dose 3 dayslater as needed if symptoms persist. Primary Care Provider: Stephany Bae Referrals: Stephany Bae, DO [Primary Care Provider] - 1 Week if not improving Activity Restrictions/Additional Instructions: You have ear infections in both eardrums. The antibiotic Zithromax 1 pill a day starting tomorrow after lunch. Take 1 pill a day for the next 4 days. Motrin and Tylenol for pain. Should progressively start feeling better in 2 to 3 days. Follow-up with your primary care provider if not improving. Print Language: Swazi Disposition Disposition: Home, Self Care What to do if you have Problems For any increased pain, shortness of breath, bleeding, nausea or vomiting, chestpain, or any unexpected problems, contact your Primary Care Provider. Call [facility] ([phone]) or report to the closest Emergency Room. Call 911 if necessary. 08/28/24 1846 <Electronically signed by Bill Carrillo MD> Cosigner Signature (if applicable): CC: Stephany Bae DO ~ Signed [facility] Work Phone: [phone]) 744-131003-02-2025 Telephone encounter Note* Telephone Encounter - Elle Hathaway APRN.CNP - 08/21/2024 2:41 PM EST Please call and let patient know they are negative for chlamydia, gonorrhea, bacterial vaginosis. Still waiting on trichomonas and yeast. [facility]03-02-2025 Miscellaneous Notes* Telephone Encounter - Elle Hathaway APRN.HAROON - 08/21/2024 2:41 PM EST Please call and let patient know they are negative for chlamydia, gonorrhea, bacterial vaginosis. Still waiting on trichomonas and yeast. documented in this encounterMary [facility]25 NoteHNO ID: [id number] Author: EVY SAN APRN.CNP Service: ? Author Type: Nurse Practitioner Type: Progress Notes Filed: 08/20/2024 12:41 Note Text: Subjective The history is provided by the patient. No counselor aide was used. HPI Andrew Mena is a 29 year old female who presents today for CC of known exposure to gonorrhea and chlamydia, partner tested positive. She desires treatment today. She is also asking for fluconazole for yeast infection after medication. She is late on menses requesting test, not using protection. BP 105/74 Pulse 95 Temp 37 ?C (98.6 ?F) Resp 16 Wt 103 kg (227 lb 1.2 oz) LMP 07/31/2024 SpO2 98% BMI 37.83 kg/m? Social History Tobacco Use Smoking status: Former Types: Cigarettes Smokeless tobacco: Never Tobacco comments: vape Vaping Use Vaping status: Never Used Substance Use Topics Alcohol use: No Drug use: Yes PAST MEDICAL HISTORY Diagnosis Date Marijuana use Methamphetamine abuse (HCC) Substance abuse (HCC) I have confirmed and edited as necessary, the [facility] Review of Systems Constitutional: Negative for chills and fever. Gastrointestinal: Negative for abdominal pain. Genitourinary: Negative for dysuria, flank pain, frequency, hematuria and urgency. Yellow vaginal discharge Objective Physical Exam Vitals and nursing note reviewed. Pulmonary: Effort: Pulmonary effort is normal. Genitourinary: Comments: Declined exam will self swab. Skin: General: Skin is warm and dry. Neurological: Mental Status: She is alert and oriented to person, place, and time. Psychiatric: Mood and Affect: Affect normal. ASSESSMENT/PLAN: 1. Secondary amenorrhea - ICD9: 626.0, ICD10: N91.1 (primary diagnosis) Hcg negative - UA DIP,URINE HCG (POC) 2. Exposure to STD - ICD9: V01.6, ICD10: Z20.2 Testing done, and treated today for chlamydia and gonorrhea with doxycycline and rocephin injection - GONORRHEA/CHLAMYDIA NAAT 3. Acute vaginitis - ICD9: 616.10, ICD10: N76.0 Testing done, given fluconazole, rocephin, and doxycycline Will call if additional treatment is needed - BACTERIAL VAGINOSIS NAAT - EULALIA/TRICHOMONAS NAAT Diagnosis and treatment plan were discussed and questions were answered to the patient's satisfaction. Pt acknowledged understanding of concepts and follow up plan. Specific signs and symptoms that would indicate the need for higher level of care were discussed in detail warranting prompt ER evaluation. [facility] History of Present illness Narrative* Evy San APRN.HAROON - 08/20/2024 12:23 PM EST Subjective The history is provided by the patient. No counselor aide was used. HPI Andrew Mena is a 29 year old female who presents today for CC of known exposure to gonorrhea and chlamydia, partner tested positive. She desires treatment today. She is also asking for fluconazole for yeast infection after medication. She is late on menses requesting test, not using protection. BP 105/74 Pulse 95 Temp 37 C (98.6 F) Resp 16 Wt 103 kg (227 lb 1.2 oz) LMP 07/31/2024 SpO2 98% BMI 37.83 kg/m Social History Tobacco Use Smoking status: Former Types: Cigarettes Smokeless tobacco: Never Tobacco comments: vape Vaping Use Vaping status: Never Used Substance Use Topics Alcohol use: No Drug use: Yes PAST MEDICAL HISTORY Diagnosis Date Marijuana use Methamphetamine abuse (HCC) Substance abuse (HCC) I have confirmed and edited as necessary, the [facility] Review of Systems Constitutional: Negative for chills and fever. Gastrointestinal: Negative for abdominal pain. Genitourinary: Negative for dysuria, flank pain, frequency, hematuria and urgency. Yellow vaginal discharge Objective Physical Exam Vitals and nursing note reviewed. Pulmonary: Effort: Pulmonary effort is normal. Genitourinary: Comments: Declined exam will self swab. Skin: General: Skin is warm and dry. Neurological: Mental Status: She is alert and oriented to person, place, and time. Psychiatric: Mood and Affect: Affect normal. ASSESSMENT/PLAN: 1. Secondary amenorrhea - ICD9: 626.0, ICD10: N91.1 (primary diagnosis) Hcg negative - UA DIP,URINE HCG (POC) 2. Exposure to STD - ICD9: V01.6, ICD10: Z20.2 Testing done, and treated today for chlamydia and gonorrhea with doxycycline and rocephin injection - GONORRHEA/CHLAMYDIA NAAT 3. Acute vaginitis - ICD9: 616.10, ICD10: N76.0 Testing done, given fluconazole, rocephin, and doxycycline Will call if additional treatment is needed - BACTERIAL VAGINOSIS NAAT - EULALIA/TRICHOMONAS NAAT Diagnosis and treatment plan were discussed and questions were answered to the patient's satisfaction. Pt acknowledged understanding of concepts and follow up plan. Specific signs and symptoms that would indicate the need for higher level of care were discussed indetail warranting prompt ER evaluation. Evy San APRN.HAROON documented in this encounterMary [facility]02-[facility] Telephone encounter Note * Telephone Encounter - Madeline Tubbs LPN - 08/04/2024 4:05 PM EST Patient notified with results. Patient verbalizes understanding. MATTHEW Liao LPN [facility]02-13-2025 Miscellaneous Notes* Telephone Encounter - Madeline Tubbs LPN - 08/04/2024 4:05 PM EST Patient notified with results. Patient verbalizes understanding. MATTHEW Liao LPN documented in this encounterMary [facility]02-[facility]-2025 NoteHNO ID: [id number] Author: NATHANIEL MORALES PA Service: ? Author Type: Physician Bulk Intake Worker Type: Progress Notes Filed: 08/03/2024 14:06 Note Text: This note was created using [employer]. Subjective Andrew Mena is a 29 year old female. HPI 29-year-old female presents for STD testing. Patient states that she had a new sexual partner a few weeks ago and would like tested for STDs. She states she has been having vaginal discharge for the past week. She has a little bit of suprapubic pressure and mild dysuria. No rash. She denies any pelvic pain. No vomiting. No back pain. She states she has a little bit of vaginal itching with the discharge. She states she has had BV in the past and this feels similar. No concern for , LMP was a few days ago. No other complaint. PAST MEDICAL HISTORY Diagnosis Date Marijuana use Methamphetamine abuse (HCC) Substance abuse (HCC) PAST SURGICAL HISTORY Procedure Laterality Date NEXPLANON INSERTION Left 02/22/2021 PAST SURGICAL HISTORY OF wisdom teeth ALLERGIES Penicillins and Venom-Honey Bee MEDICATIONS SYMBICORT 80-4.5 mcg/actuation inhaler Inhale 2 Puffs as instructed two times a day. FEROSUL 325 mg (65 mg iron) tablet Take 1 tablet by mouth every 12 hours. buPROPion XL (WELLBUTRIN XL) 150 mg 24 hr tablet Take 1 tablet by mouth daily. Do not break tablet as it turns it from a long acting medication to a short acting medication. ALLERGY RELIEF, LORATADINE, 10 mg tablet Take 10 mg by mouth once daily. albuterol HFA (PROVENTIL HFA, VENTOLIN HFA) 90 mcg/actuation inhaler Inhale 2 Puffs as instructed every 6 hours as needed for wheezing/shortness of breath. cetirizine (ZYRTEC) 10 mg tablet Take 1 tablet by mouth once daily. triamcinolone acetonide (KENALOG) 0.1 % cream Apply to affected area twice daily. For up to 2 weeks at a time. spironolactone (ALDACTONE) 50 mg tablet Take 1 tablet by mouth once daily. zinc oxide (DESITIN) 13 % crea Apply to affected area as needed for up to 7 days. FAMILY HISTORY Problem Relation Age of Onset Seizures Maternal Grandmother Social History Tobacco Use Smoking status: Former Types: Cigarettes Smokeless tobacco: Never Tobacco comments: vape Vaping Use Vaping status: Never Used Substance Use Topics Alcohol use: No Drug use: Yes Review of Systems Constitutional: Negative for chills and fever. HENT: Negative for congestion, ear pain and sore throat. Respiratory: Negative for cough and shortness of breath. Cardiovascular: Negative for chest pain. Gastrointestinal: Negative for diarrhea and vomiting. Genitourinary: Positive for dysuria and vaginal discharge. Negative for frequency, pelvic pain, urgency, vaginal bleeding and vaginal pain. Objective BP 129/85 Pulse 91 Temp 36.8 ?C (98.3 ?F) Resp 18 Wt 103.5 kg (228 lb 2.8 oz) LMP 07/31/2024 SpO2 99% No BMI 38.02 kg/m? Physical Exam Vitals and nursing note reviewed. Constitutional: General: She is not in acute distress. Appearance: Normal appearance. She is not toxic-appearing. Cardiovascular: Rate and Rhythm: Normal rate and regular rhythm. Pulmonary: Effort: Pulmonary effort is normal. Breath sounds: Normal breath sounds. Abdominal: General: Abdomen is flat. Palpations: Abdomen is soft. Tenderness: There is no abdominal tenderness. There is no right CVA tenderness, left CVA tenderness, guarding or rebound. Genitourinary: Comments: deferred Skin: General: Skin is warm and dry. Neurological: Mental Status: She is alert. Assessment and Plan ASSESSMENT/PLAN: 1. Dysuria - ICD9: 788.1, ICD10: R30.0 (primary diagnosis) acute - UA positive for hematuria- pt at end of menstrual cycle - Send urine for culture - Patient education for prevention given - UA DIP, URINE (POC) - BACTERIAL CULTURE, URINE 2. Vaginal discharge - ICD9: 623.5, ICD10: N89.8 - EULALIA/TRICHOMONAS NAAT - BACTERIAL VAGINOSIS NAAT - GONORRHEA/CHLAMYDIA NAAT -Patient declines HIV/syphilis/hepatitis testing -Please treat based on results. No concern for . Diagnosis and treatment plan were discussed and questions were answered to the patient's satisfaction. Pt acknowledged understanding of concepts and follow up plan. Specific signs and symptoms that would indicate the need for higher level of care were discussed in detail warranting prompt ER evaluation. Nathaniel Morales [facility]02-12-2025 History of Present illness Narrative* Nathaniel Morales PA - 08/03/2024 1:49 PM EST This note was created using [employer]. Subjective Andrew Mena is a 29 year old female. HPI 29-year-old female presents for STD testing. Patient states that she had a new sexual partner afew weeks ago and would like tested for STDs. She states she has been having vaginal discharge for the past week. She has a little bit of suprapubic pressure and mild dysuria. No rash. She denies anypelvic pain. No vomiting. No back pain. She states she has a little bit of vaginal itching with thedischarge. She states she has had BV in the past and this feels similar. No concern for , LMP was a few days ago. No other complaint. PAST MEDICAL HISTORY Diagnosis Date Marijuana use Methamphetamine abuse (HCC) Substance abuse ([facility]) PAST SURGICAL HISTORY Procedure Laterality Date NEXPLANON INSERTION Left 02/22/2021 PAST SURGICAL HISTORY OF wisdom teeth ALLERGIES Penicillins and Venom-Honey Bee MEDICATIONS SYMBICORT 80-4.5 mcg/actuation inhaler Inhale 2 Puffs as instructed two times a day. FEROSUL 325 mg (65 mg iron) tablet Take 1 tablet by mouth every 12 hours. buPROPion XL (WELLBUTRIN XL) 150 mg 24 hr tablet Take 1 tablet by mouth daily. Do not break tablet as it turns it from a long acting medication to a short acting medication. ALLERGY RELIEF, LORATADINE, 10 mg tablet Take 10 mg by mouth once daily. albuterol HFA (PROVENTIL HFA, VENTOLIN HFA) 90 mcg/actuation inhaler Inhale 2 Puffs as instructed every 6 hours as needed for wheezing/shortness of breath. cetirizine (ZYRTEC) 10 mg tablet Take 1 tablet by mouth once daily. triamcinolone acetonide (KENALOG) 0.1 % cream Apply to affected area twice daily. For up to 2 weeksat a time. spironolactone (ALDACTONE) 50 mg tablet Take 1 tablet by mouth once daily. zinc oxide (DESITIN) 13 % crea Apply to affected area as needed for up to 7 days. FAMILY HISTORY Problem Relation Age of Onset Seizures Maternal Grandmother Social History Tobacco Use Smoking status: Former Types: Cigarettes Smokeless tobacco: Never Tobacco comments: vape Vaping Use Vaping status: Never Used Substance Use Topics Alcohol use: No Drug use: Yes Review of Systems Constitutional: Negative for chills and fever. HENT: Negative for congestion, ear pain and sore throat. Respiratory: Negative for cough and shortness of breath. Cardiovascular: Negative for chest pain. Gastrointestinal: Negative for diarrhea and vomiting. Genitourinary: Positive for dysuria and vaginal discharge. Negative for frequency, pelvic pain, urgency, vaginal bleeding and vaginal pain. Objective BP 129/85 Pulse 91 Temp 36.8 C (98.3 F) Resp 18 Wt 103.5 kg (228 lb 2.8 oz) LMP 07/31/2024 SpO2 99% No BMI 38.02 kg/m Physical Exam Vitals and nursing note reviewed. Constitutional: General: She is not in acute distress. Appearance: Normal appearance. She is not toxic-appearing. Cardiovascular: Rate and Rhythm: Normal rate and regular rhythm. Pulmonary: Effort: Pulmonary effort is normal. Breath sounds: Normal breath sounds. Abdominal: General: Abdomen is flat. Palpations: Abdomen is soft. Tenderness: There is no abdominal tenderness. There is no right CVA tenderness, left CVA tenderness, guarding or rebound. Genitourinary: Comments: deferred Skin: General: Skin is warm and dry. Neurological: Mental Status: She is alert. Assessment and Plan ASSESSMENT/PLAN: 1. Dysuria - ICD9: 788.1, ICD10: R30.0 (primary diagnosis) acute - UA positive for hematuria- pt at end of menstrual cycle - Send urine for culture - Patient education for prevention given - UA DIP, URINE (POC) - BACTERIAL CULTURE, URINE 2. Vaginal discharge - ICD9: 623.5, ICD10: N89.8 - EULALIA/TRICHOMONAS NAAT - BACTERIAL VAGINOSIS NAAT - GONORRHEA/CHLAMYDIA NAAT -Patient declines HIV/syphilis/hepatitis testing -Please treat based on results. No concern for . Diagnosis and treatment plan were discussed and questions were answered to the patient's satisfaction. Pt acknowledged understanding of concepts and follow up plan. Specific signs and symptoms that would indicate the need for higher level of care were discussed in detail warranting prompt ER evaluation. MIKAEL Thakur documented in this [facility] NoteHNO ID: [id number] Author: YUE RESENDIZ PA-C Service: ? Author Type: Physician Bulk Intake Worker Type: Progress Notes Filed: 06/17/2024 11:07 Note Text: This note was created using [employer]. Subjective Andrew Mena is a 29 year old female. HPI Patient presents with the chief complaint of vaginal discharge and odor for 2 weeks. She states she was seen in the ER and positive for BV 2 to 3 weeks ago. She states she did take Flagyl for this. She is having burning and itching as well. She states sometimes she does get yeast infections from antibiotics. States she has not been sexually active in 2 to 3 months. Did have a miscarriage in January. She denies chance of now. She does have some dysuria. No frequency or urgency. No blood in urine. She is not sure when her last menstrual cycle was. Review of Systems Constitutional: Negative. HENT: Negative. Respiratory: Negative. Gastrointestinal: Negative. Genitourinary: Positive for dysuria, vaginal discharge and vaginal pain. Negative for flank pain, frequency, pelvic pain and urgency. Musculoskeletal: Negative. All other systems reviewed and are negative. PAST MEDICAL HISTORY Diagnosis Date Marijuana use Methamphetamine abuse ([facility]) Substance abuse ([facility]) Current Outpatient Medications Medication Sig Dispense Refill albuterol HFA (PROVENTIL HFA, VENTOLIN HFA) 90 mcg/actuation inhaler Inhale 2 Puffs as instructed every 6 hours as needed for wheezing/shortness of breath. 1 Each 0 cetirizine (ZYRTEC) 10 mg tablet Take 1 tablet by mouth once daily. 90 tablet 3 triamcinolone acetonide (KENALOG) 0.1 % cream Apply to affected area twice daily. For up to 2 weeks at a time. 45 g 3 fluconazole (DIFLUCAN) 150 mg tablet Take 1 tablet by mouth once daily for 1 day. 1 tablet 0 spironolactone (ALDACTONE) 50 mg tablet Take 1 tablet by mouth once daily. 30 tablet 11 zinc oxide (DESITIN) 13 % crea Apply to affected area as needed for up to 7 days. 57 g 0 No current facility-administered medications for this visit. PAST SURGICAL HISTORY Procedure Laterality Date NEXPLANON INSERTION Left 02/22/2021 PAST SURGICAL HISTORY OF wisdom teeth FAMILY HISTORY Problem Relation Age of Onset Seizures Maternal Grandmother Social History Tobacco Use Smoking status: Former Types: Cigarettes Smokeless tobacco: Never Tobacco comments: vape Vaping Use Vaping status: Never Used Substance Use Topics Alcohol use: No Drug use: Yes Objective BP 131/85 Pulse 105 Temp 36.7 ?C (98 ?F) Resp 18 Wt 100.6 kg (221 lb 12.5 oz) LMP 09/17/2023 SpO2 100% BMI 36.95 kg/m? Physical Exam Vitals reviewed. Constitutional: Appearance: Normal appearance. HENT: Head: Normocephalic and atraumatic. Genitourinary: Comments: Exam deferred Skin: General: Skin is warm and dry. Neurological: General: No focal deficit present. Mental Status: She is alert and oriented to person, place, and time. Assessment and Plan ASSESSMENT/PLAN: 1. Vaginal discharge - ICD9: 623.5, ICD10: N89.8 Swabs are pending. Will treat based on results. I did send in Diflucan today. Pharmacy location recommended follow-up with [facility]. She did just finished treatment with Flagyl for BV 2 weeks ago. - BACTERIAL VAGINOSIS NAAT - EULALIA/TRICHOMONAS NAAT - GONORRHEA/CHLAMYDIA NAAT - UA DIP, URINE (POC) MIKAEL [facility]12-27-2024 History of Present illness Narrative* Yue Resendiz PA-C - 06/17/2024 11:05 AM EST This note was created using [employer]. Subjective Andrew Mena is a 29 year old female. HPI Patient presents with the chief complaint of vaginal discharge and odor for 2 weeks. She states shewas seen in the ER and positive for BV 2 to 3 weeks ago. She states she did take Flagyl for this. She is having burning and itching as well. She states sometimes she does get yeast infections from antibiotics. States she has not been sexually active in 2 to 3 months. Did have a miscarriage in January. She denies chance of now. She does have some dysuria. No frequency or urgency. No bloodin urine. She is not sure when her last menstrual cycle was. Review of Systems Constitutional: Negative. HENT: Negative. Respiratory: Negative. Gastrointestinal: Negative. Genitourinary: Positive for dysuria, vaginal discharge and vaginal pain. Negative for flank pain, frequency, pelvic pain and urgency. Musculoskeletal: Negative. All other systems reviewed and are negative. PAST MEDICAL HISTORY Diagnosis Date Marijuana use Methamphetamine abuse ([facility]) Substance abuse ([facility]) Current Outpatient Medications Medication Sig Dispense Refill albuterol HFA (PROVENTIL HFA, VENTOLIN HFA) 90 mcg/actuation inhaler Inhale 2 Puffs as instructed every 6 hours as needed for wheezing/shortness of breath. 1 Each 0 cetirizine (ZYRTEC) 10 mg tablet Take 1 tablet by mouth once daily. 90 tablet 3 triamcinolone acetonide (KENALOG) 0.1 % cream Apply to affected area twice daily. For up to 2 weeksat a time. 45 g 3 fluconazole (DIFLUCAN) 150 mg tablet Take 1 tablet by mouth once daily for 1 day. 1 tablet 0 spironolactone (ALDACTONE) 50 mg tablet Take 1 tablet by mouth once daily. 30 tablet 11 zinc oxide (DESITIN) 13 % crea Apply to affected area as needed for up to 7 days. 57 g 0 No current facility-administered medications for this visit. PAST SURGICAL HISTORY Procedure Laterality Date NEXPLANON INSERTION Left 02/22/2021 PAST SURGICAL HISTORY OF wisdom teeth FAMILY HISTORY Problem Relation Age of Onset Seizures Maternal Grandmother Social History Tobacco Use Smoking status: Former Types: Cigarettes Smokeless tobacco: Never Tobacco comments: vape Vaping Use Vaping status: Never Used Substance Use Topics Alcohol use: No Drug use: Yes Objective BP 131/85 Pulse 105 Temp 36.7 C (98 F) Resp 18 Wt 100.6 kg (221 lb 12.5 oz) LMP 09/17/2023 SpO2 100% BMI 36.95 kg/m Physical Exam Vitals reviewed. Constitutional: Appearance: Normal appearance. HENT: Head: Normocephalic and atraumatic. Genitourinary: Comments: Exam deferred Skin: General: Skin is warm and dry. Neurological: General: No focal deficit present. Mental Status: She is alert and oriented to person, place, and time. Assessment and Plan ASSESSMENT/PLAN: 1. Vaginal discharge - ICD9: 623.5, ICD10: N89.8 Swabs are pending. Will treat based on results. I did send in Diflucan today. Pharmacy location recommended follow-up with [employer]. She did just finished treatment with Flagyl for BV 2 weeks ago. - BACTERIAL VAGINOSIS NAAT - EULALIA/TRICHOMONAS NAAT - GONORRHEA/CHLAMYDIA NAAT - UA DIP, URINE (POC) Yue Resendiz PA-C [facility] Tele[facility] encounter Note * Telephone Encounter - Nissa Fletcher - 02/25/2024 2:35 PM EDT NO SHOW , OB FOLLOW-UP, & NEW OB APPOINTMENTS Patient appeared on /no show report Patient NO SHOWED FOLLOW UP appointment on 02/24/24 After chart review and TV note from 02/16/24 ultrasound was diagnostic of failed . No call placed to pt. Closing encounter [id number] Miscellaneous Notes* Telephone Encounter - Nissa Fletcher - 02/25/2024 2:35 PM EDT NO SHOW , OB FOLLOW-UP, & NEW OB APPOINTMENTS Patient appeared on /no show report Patient NO SHOWED FOLLOW UP appointment on 02/24/24 After chart review and TV note from 02/16/24 ultrasound was diagnostic of failed . No call placed to pt. Closing encounter documented in this [id number] Telephone encounter Note* Telephone Encounter - Luis Felipe Marie MD - 02/16/2024 1:57 PM EDT I have made multiple calls to patient since 02/11/2024 ultrasound was diagnostic of failed . I have left multiple voice mails. She chose not to come to see me right after the radiologist explained her diagnosis. Reviewing chart I see that she presented to [facility] 02/11/2024 but chose to leave before being seen Luis Felipe Marie MD [id number] Miscellaneous Notes* Telephone Encounter - Luis Felipe Marie MD - 02/16/2024 1:57 PM EDT I have made multiple calls to patient since 02/11/2024 ultrasound was diagnostic of failed . I have left multiple voice mails. She chose not to come to see me right after the radiologist explained her diagnosis. Reviewing chart I see that she presented to [facility] 02/11/2024 but chose to leave before being seen Luis Felipe Marie MD documented in this [id number] Telephone encounter Note* Telephone Encounter - Luis Felipe Marie MD - 02/12/2024 9:36 AM EDT 02/11/2024 ultrasound diagnostic of failed early . Pt spoke with radiologist, was given emergency appointment with me for yesterday afternoon, and was instructed to walk over to my office. She chose instead to leave without being seen. I attempted to call her this AM and left message on her voice mail to please call me this AM Luis Felipe Marie MD [id number] Miscellaneous Notes* Telephone Encounter - Luis Felipe Marie MD - 02/12/2024 9:36 AM EDT 02/11/2024 ultrasound diagnostic of failed early . Pt spoke with radiologist, was given emergency appointment with me for yesterday afternoon, and was instructed to walk over to my office. She chose instead to leave without being seen. I attempted to call her this AM and left message on her voice mail to please call me this AM Luis Felipe Marie MD documented in this [id number] Note* Addendum Note - Luis Felipe Marie MD - 02/09/2024 9:38 AM EDTAddended by: LUIS FELIPE MARIE on: 02/09/2024 09:38 AM Modules accepted: Orders [id number] Miscellaneous Notes* Addendum Note - Luis Felipe Marie MD - 02/09/2024 9:38 AM EDTAddended by: LUIS FELIPE MARIE on: 02/09/2024 09:38 AM Modules accepted: Orders * Telephone Encounter - Tara Quach - 02/05/2024 4:23 PM EDT Patient returning your call and can be reached at [phone] * Telephone Encounter - Luis Felipe Marie MD - 02/05/2024 3:55 PM EDT I attempted to return patient's call two MORE times. Mailbox still full Luis Felipe Marie MD documented in this [id number] Telephone encounter Note* Telephone Encounter - Tara Quach - 02/09/2024 9:26 AM EDT Pt under the impression she was to schedule US for tomorrow, no order in the system Please place if appropriate [facility] Work Phone: 1(198) 643-461508-20-2024 Miscellaneous Notes* Telephone Encounter - Tara Quach - 02/09/2024 9:26 AM EDT Pt under the impression she was to schedule US for tomorrow, no order in the system Please place if appropriate documented in this [id number] Telephone encounter Note* Telephone Encounter - Luis Felipe Marie MD - 02/09/2024 9:20 AM EDT I called pt, explained HCG and ultrasound results Ultrasound 02/03/2024 FINDINGS: There is a single intrauterine . [place]-rump length measures 0.58 cm which corresponds to an estimated gestational age of 6w3d+/-0w3d. No cardiac activity is observed. An abnormal mildly distended yolk sac is present. On prior ultrasound dated 01/17/2024, a gestational sac with a yolk sac and no pole was identified yielding an estimated gestational age of 5w3d+/-0w3d. The placenta is not defined yet due to the early stage of the . A subchorionic hemorrhage is presentalong the margin of the gestational sac measuring 1.4 x 0.6 cm. Both ovaries are normal in size and appearance. The corpus luteum of resides within the right ovary. No significant volume of free fluid. IMPRESSION: 1. Findings highly suspicious for failed early . Close follow-up with serial quantitive beta HCG and ultrasound is recommended. 2. Small subchorionic hemorrhage. 01/17/2024 9:51 AM 01/27/2024 3:36 PM 02/04/2024 11:35 AM HCG 5,353.0 (H) 8,112.0 (H) 10,345.0 (H) Legend: (H) High I explained again that results are highly suggestive yet not diagnostic of loss. I will repeat [id number] Miscellaneous Notes* Telephone Encounter - Luis Felipe Marie MD - 02/09/2024 9:20 AM EDT I called pt, explained HCG and ultrasound results Ultrasound 02/03/2024 FINDINGS: There is a single intrauterine . [place]-rump length measures 0.58 cm which corresponds to an estimated gestational age of 6w3d+/-0w3d. No cardiac activity is observed. An abnormal mildly distended yolk sac is present. On prior ultrasound dated 01/17/2024, a gestational sac with a yolk sac and no pole was identified yielding an estimated gestational age of 5w3d+/-0w3d. The placenta is not defined yet due to the early stage of the . A subchorionic hemorrhage is presentalong the margin of the gestational sac measuring 1.4 x 0.6 cm. Both ovaries are normal in size and appearance. The corpus luteum of resides within the right ovary. No significant volume of free fluid. IMPRESSION: 1. Findings highly suspicious for failed early . Close follow-up with serial quantitive beta HCG and ultrasound is recommended. 2. Small subchorionic hemorrhage. 01/17/2024 9:51 AM 01/27/2024 3:36 PM 02/04/2024 11:35 AM HCG 5,353.0 (H) 8,112.0 (H) 10,345.0 (H) Legend: (H) High I explained again that results are highly suggestive yet not diagnostic of loss. I will repeat documented in this [id number] Telephone encounter Note* Telephone Encounter - Tesfaye Mario RN - 02/08/2024 12:53 PM EDT Situation: Patient calling for test results, missed Dr Yanez calls Background: N/A Assessment: N/A Recommendation: patients states that her voice mail box is no longer full [id number] Miscellaneous Notes* Telephone Encounter - Tesfaye Mario RN - 02/08/2024 12:53 PM EDT Situation: Patient calling for test results, missed Dr Renata de dios Background: N/A Assessment: N/A Recommendation: patients states that her voice mail box is no longer full * Telephone Encounter - Luis Felipe Marie MD - 02/05/2024 12:26 PM EDT I attempted to return patient's call for the 3rd time. Voice mailbox still full. No answer Luis Felipe Marie MD * Telephone Encounter - Luis Felipe Marie MD - 02/05/2024 11:09 AM EDT I attempted to return patient's call twice. No answer. Voice mail box message full Luis Felipe Marie MD * Telephone Encounter - Kristel Leslie RN - 02/05/2024 9:28 AM EDT Pt called requesting yesterday's HCG level result. Finalized result provided to pt. Pt has other questions regarding recent ultrasound and her HCG levels. Please return pt's phone call. Thanks. Future Appointments (next 10) Provider Department Center 02/24/2024 2:00 PM Luis Felipe Marie MD [facility] Obstetrics/Gynecology [facility] 02/24/2024 2:[address] [facility] Nutrition Obstetrics [facility] 03/09/2024 2:00 PM CORRECTION 30 MINUTE EXAMS [facility] Diagnostic Center [facility] documented in this [id number] Telephone encounter Note* Telephone Encounter - Tara Quach - 02/05/2024 4:23 PM EDT Patient returning your call and can be reached at [phone] [facility] Work Phone: 1(772) 216-401408-16-2024 Miscellaneous Notes* Telephone Encounter - Tara Quach - 02/05/2024 4:23 PM EDT Patient returning your call and can be reached at [phone] * Telephone Encounter - Luis Felipe Marie MD - 02/05/2024 3:55 PM EDT I attempted to return patient's call two MORE times. Mailbox still full Luis Felipe Marie MD documented in this [id number] Telephone encounter Note* Telephone Encounter - Luis Felipe Marie MD - 02/05/2024 3:55 PM EDT I attempted to return patient's call two MORE times. Mailbox still full Luis Felipe Marie MD [id number] Telephone encounter Note* Telephone Encounter - Luis Felipe Marie MD - 02/05/2024 12:26 PM EDT I attempted to return patient's call for the 3rd time. Voice mailbox still full. No answer Luis Felipe Marie MD [id number] Miscellaneous Notes* Telephone Encounter - Luis Felipe Marie MD - 02/05/2024 12:26 PM EDT I attempted to return patient's call for the 3rd time. Voice mailbox still full. No answer Luis Felipe Marie MD * Telephone Encounter - Luis Felipe Marie MD - 02/05/2024 11:09 AM EDT I attempted to return patient's call twice. No answer. Voice mail box message full Luis Felipe Marie MD * Telephone Encounter - Kristel Leslie RN - 02/05/2024 9:28 AM EDT Pt called requesting yesterday's HCG level result. Finalized result provided to pt. Pt has other questions regarding recent ultrasound and her HCG levels. Please return pt's phone call. Thanks. Future Appointments (next 10) Provider Department Center 02/24/2024 2:00 PM Luis Felipe Marie MD [facility] Obstetrics/Gynecology [facility] 02/24/2024 2:[address] [facility] Nutrition Obstetrics [facility] 03/09/2024 2:00 PM CORRECTION 30 MINUTE EXAMS [facility] Diagnostic Center [facility] documented in this [id number] Telephone encounter Note* Telephone Encounter - Luis Felipe Marie MD - 02/05/2024 11:09 AM EDT I attempted to return patient's call twice. No answer. Voice mail box message full Luis Felipe Marie MD [id number] Miscellaneous Notes* Telephone Encounter - Luis Felipe Marie MD - 02/05/2024 11:09 AM EDT I attempted to return patient's call twice. No answer. Voice mail box message full Luis Felipe Marie MD * Telephone Encounter - Kristel Leslie RN - 02/05/2024 9:28 AM EDT Pt called requesting yesterday's HCG level result. Finalized result provided to pt. Pt has other questions regarding recent ultrasound and her HCG levels. Please return pt's phone call. Thanks. Future Appointments (next 10) Provider Department Center 02/24/2024 2:00 PM Luis Felipe Marie MD [facility] Obstetrics/Gynecology [facility] 02/24/2024 2:[address] [facility] Nutrition Obstetrics [facility] 03/09/2024 2:00 PM CORRECTION 30 MINUTE EXAMS [facility] Diagnostic Center [facility] documented in this [id number] Telephone encounter Note* Telephone Encounter - Kristel Leslie RN - 02/05/2024 9:28 AM EDT Pt called requesting yesterday's HCG level result. Finalized result provided to pt. Pt has other questions regarding recent ultrasound and her HCG levels. Please return pt's phone call. Thanks. Future Appointments (next 10) Provider Department Center 02/24/2024 2:00 PM Luis Felipe Marie MD [facility] Obstetrics/Gynecology [facility] 02/24/2024 2:[address] [facility] Nutrition Obstetrics [facility] 03/09/2024 2:00 PM CORRECTION 30 MINUTE EXAMS [facility] Diagnostic Center [facility] [id number] Instructions* Patient Instructions* Luis Felipe Marie MD - 02/03/2024 4:07 PM EDT FINDINGS: There is a single intrauterine . [place]-rump length measures 0.58 cm which corresponds to an estimated gestational age of 6w3d+/-0w3d. No cardiac activity is observed. An abnormal mildly distended yolk sac is present. On prior ultrasound dated 01/17/2024, a gestational sac with a yolk sac and no pole was identified yielding an estimated gestational age of 5w3d+/-0w3d. The placenta is not defined yet due to the early stage of the . A subchorionic hemorrhage is presentalong the margin of the gestational sac measuring 1.4 x 0.6 cm. Both ovaries are normal in size and appearance. The corpus luteum of resides within the right ovary. No significant volume of free fluid. IMPRESSION: 1. Findings highly suspicious for failed early . Close follow-up with serial quantitive beta HCG and ultrasound is recommended. 2. Small subchorionic hemorrhage. I called pt, explained results and suspicion of failed Recommend repeat HCG She'll come to lab tomorrow Luis Felipe Marie MD documented in this [id number] Note* Addendum Note - Teresita Schwab - 01/28/2024 7:46 AM EDTAddended by: TERESITA SCHWAB on: 01/28/2024 07:46 AM Modules accepted: Orders [facility] Work Phone: [phone]) 955-422908-08-2024 Miscellaneous Notes* Addendum Note - Teresita Schwab - 01/28/2024 7:46 AM EDTAddended by: TERESITA SCHWAB on: 01/28/2024 07:46 AM Modules accepted: Orders * Addendum Note - Simi Soriano - 01/27/2024 4:52 PM EDTAddended by: SIMI SORIANO on: 01/27/2024 04:52 PM Modules accepted: Orders documented in this [id number] Note* Addendum Note - Simi Soriano - 01/27/2024 4:52 PM EDTAddended by: SIMI SORIANO on: 01/27/2024 04:52 PM Modules accepted: Orders [id number] Note* Addendum Note - Simi Soriano - 01/27/2024 4:52 PM EDTAddended by: SIMI SORIANO on: 01/27/2024 04:52 PM Modules accepted: Orders [id number] Note* Addendum Note - Simi Soriano - 01/27/2024 4:52 PM EDTAddended by: SIMI SORIANO on: 01/27/2024 04:52 PM Modules accepted: Orders [id number] Miscellaneous Notes* Addendum Note - Simi Soriano - 01/27/2024 4:52 PM EDTAddended by: SIMI SORIANO on: 01/27/2024 04:52 PM Modules accepted: Orders documented in this [id number] History of Present illness Narrative* Luis Felipe Marie MD - 01/27/2024 3:15 PM EDT I saw this 29 year old female for care today. Our best estimate of gestational age is 6w6d weeks. notes were recorded on the [facility] based [facility] OB Episode forms. I reviewed, update when necessary her history and physical findings. Specifically I Reviewed, updated, and/or documentedon Episode Forms all of the following: OB Flowsheet, Past Ob Hx, PMH, Past Surg Hx, PSocH, OB Questionaire positives, Ob All Lab flowsheet, Ultrasounds and OB Dating (consistant with 6w6d weeks gestation. Each Ob Problem on Problem list was reviewed and addressed and Problem based charting was documented on Ob Problem List in Flowsheet form for problems that changed since prior notes were recordedI was present for the critical portion of the visit. Problem Threatened (Hcc) 01/27/2024 6w6d 01/16/2023 HCG 5353. U/s then showed 5w 3d sac with no pole. Obesity Affecting in First Trimester (Hcc) 01/27/2024 6w6d BMI 38.9 Nutrition consult. Hgb A1c Trichomonas Infection 01/27/2024 6w6d pt and partner treated 01/17/2024 Assessment and plan reviewed with patient. She expresses understanding of our management plan. Luis Felipe Marie MD documented in this [id number] History of Present illness Narrative* Luis Felipe Marie MD - 01/27/2024 3:15 PM EDT I saw this 29 year old female for care today. Our best estimate of gestational age is 6w6d weeks. notes were recorded on the [facility] based [facility] OB Episode forms. I reviewed, update when necessary her history and physical findings. Specifically I Reviewed, updated, and/or documentedon Episode Forms all of the following: OB Flowsheet, Past Ob Hx, PMH, Past Surg Hx, PSocH, OB Questionaire positives, Ob All Lab flowsheet, Ultrasounds and OB Dating (consistant with 6w6d weeks gestation. Each Ob Problem on Problem list was reviewed and addressed and Problem based charting was documented on Ob Problem List in Flowsheet form for problems that changed since prior notes were recordedI was present for the critical portion of the visit. Problem Threatened (Hcc) 01/27/2024 6w6d 01/16/2023 HCG 5353. U/s then showed 5w 3d sac with no pole. Obesity Affecting in First Trimester (Hcc) 01/27/2024 6w6d BMI 38.9 Nutrition consult. Hgb A1c Trichomonas Infection 01/27/2024 6w6d pt and partner treated 01/17/2024 Assessment and plan reviewed with patient. She expresses understanding of our management plan. Luis Felipe Marie MD documented in this [id number] History of Present illness Narrative* Luis Felipe Marie MD - 01/27/2024 3:15 PM EDT I saw this 29 year old female for care today. Our best estimate of gestational age is 6w6d weeks. notes were recorded on the [facility] OB Episode forms. I reviewed, update when necessary her history and physical findings. Specifically I Reviewed, updated, and/or documentedon Episode Forms all of the following: OB Flowsheet, Past Ob Hx, PMH, Past Surg Hx, PSocH, OB Questionaire positives, Ob All Lab flowsheet, Ultrasounds and OB Dating (consistant with 6w6d weeks gestation. Each Ob Problem on Problem list was reviewed and addressed and Problem based charting was documented on Ob Problem List in Flowsheet form for problems that changed since prior notes were recordedI was present for the critical portion of the visit. Problem Threatened (Hcc) 01/27/2024 6w6d 01/16/2023 HCG 5353. U/s then showed 5w 3d sac with no pole. Obesity Affecting in First Trimester (Hcc) 01/27/2024 6w6d BMI 38.9 Nutrition consult. Hgb A1c Trichomonas Infection 01/27/2024 6w6d pt and partner treated 01/17/2024 Assessment and plan reviewed with patient. She expresses understanding of our management plan. Luis Felipe Marie MD documented in this [id number] History of Present illness Narrative* Luis Felipe Marie MD - 01/27/2024 3:15 PM EDT I saw this 29 year old female for care today. Our best estimate of gestational age is 6w6d weeks. notes were recorded on the [facility] OB Episode forms. I reviewed, update when necessary her history and physical findings. Specifically I Reviewed, updated, and/or documentedon Episode Forms all of the following: OB Flowsheet, Past Ob Hx, PMH, Past Surg Hx, PSocH, OB Questionaire positives, Ob All Lab flowsheet, Ultrasounds and OB Dating (consistant with 6w6d weeks gestation. Each Ob Problem on Problem list was reviewed and addressed and Problem based charting was documented on Ob Problem List in Flowsheet form for problems that changed since prior notes were recordedI was present for the critical portion of the visit. Problem Threatened (Hcc) 01/27/2024 6w6d 01/16/2023 HCG 5353. U/s then showed 5w 3d sac with no pole. Obesity Affecting in First Trimester (Hcc) 01/27/2024 6w6d BMI 38.9 Nutrition consult. Hgb A1c Trichomonas Infection 01/27/2024 6w6d pt and partner treated 01/17/2024 Assessment and plan reviewed with patient. She expresses understanding of our management plan. Luis Felipe Marie MD documented in this [id number] Telephone encounter Note* Telephone Encounter - Chance Nissa - 01/22/2024 3:51 PM EDT 2nd attempt to contact not needed after chart review pt has upcoming apt schd Closing encounter Future Appointments (next 10) Provider Department Center 01/27/2024 2:00 PM Luis Felipe Marie MD; [employer] NURSE-384; [employer] NURSE-128; [employer] NURSE-129 [facility] Obstetrics/Gynecology [facility] ] [id number] Miscellaneous Notes* Telephone Encounter - Nissa Fletcher - 01/22/2024 3:51 PM EDT 2nd attempt to contact not needed after chart review [facility]osing [facility] Future Appointments (next 10) Provider Department Center 01/27/2024 2:00 PM Luis Felipe Marie MD; [employer] NURSE-384; [employer] NURSE-128; [employer] NURSE-129 [facility] Obstetrics/Gynecology [facility] ] * Telephone Encounter - Nissa Fletcher - 01/18/2024 10:40 AM EDT POSITIVE TEST DOCUMENTATION Patient appeared on 01/17/24 report Patient had a positive test on : 01/17/24 Patient was called : [facility] apt 1st attempt to contact documented in this [id number] History of Present illness Narrative* Roxann Ryan MSW - 01/20/2024 3:25 PM EDT Social Work [employer] Risk score 77% Received VM from Pt requesting transportation assistance. SW called Pt back and LVM requesting return call. SW will also send Pt a [employer] message. Plan: SW will remain available. EDWARD Coy, BOOK CLEANER Pager: [phone] documented in this [id number] Telephone encounter Note* Telephone Encounter - Nissa Fletcher - 01/18/2024 10:40 AM EDT POSITIVE TEST DOCUMENTATION Patient appeared on 01/17/24 report Patient had a positive test on : 01/17/24 Patient was called [facility]st attempt to contact [id number] Miscellaneous Notes* Telephone Encounter - Nissa Fletcher - 01/18/2024 10:40 AM EDT POSITIVE TEST DOCUMENTATION Patient appeared on 01/17/24 report Patient had a positive test on : 01/17/24 Patient was called : [facility] attempt to contact documented in this [id number] Hospital Discharge instructions* Discharge Instructions* Jun Cardenas MD - 01/17/2024 12:26 PM EDT Return if worsening. Follow up with your doctor. Procedures done during this visit: None * Attachments The following attachments cannot be sent through Care Everywhere. * Urinary Tract Infection, Adult ED (Swazi) documented in this [id number] Hospital Discharge instructions* Discharge Instructions* Karla Estrada APRN-CNP - 01/02/2024 12:38 PM EDT Do not share your medication with anyone. Use the triamincolone to the rash 2 times a day - watch the sun. Go to the [facility] clinic - no signs of a urinary tract infection on the lab today. Follow up with the clinic to establish care. Wait one to 2 more weeks for another test. Procedures done during this visit: None documented in this [id number] Physician Emergency department Note* Karla Estrada APRN-CNP - 01/02/2024 12:04 PM EDT Images from the original note were not included. EMERGENCY DEPARTMENT - VISIT NOTE HISTORY OF PRESENT ILLNESS Chief Complaint Patient presents with Test Generalized redness/erythema/rash HPI Andrew Mena 28 year old female here with complaint of rash to both arms for awhile. Nothing new per patient. No one else has a rash. Son has eczema per patient. + itching per patient. Also concerned that she could be . States she had some spotting about 2 weeks ago but feelslike she is . Has boob irritations. No VB/VD. A little crampy per patient like maybe a period cramp. Had miscarriage 2 months ago & worried that she is again. No n/v/d. No fevers. Sick contacts with similar illness : none REVIEW OF SYSTEMS Review of Systems Constitutional: Negative. Negative for chills and fever. HENT: Negative. Eyes: Negative. Respiratory: Negative. Negative for cough. Cardiovascular: Negative. Negative for chest pain. Gastrointestinal: Negative. Genitourinary: Negative for dysuria, flank pain, frequency, hematuria and urgency. White stuff in my urine. Musculoskeletal: Negative. Skin: Positive for itching and rash (spots to both forearms). Neurological: Negative. Negative for headaches. Endo/Heme/Allergies: Negative. Psychiatric/Behavioral: Negative. PAST HISTORY Pertinent Past History: reviewed No past medical history on file. Pertinent Family History: reviewed No family history on file. Pertinent Social History: reviewed Tob : denies EtOH : denies Drugs : denies LMP: 2 weeks ago had spotting Immunizations:UTD per patient PHYSICAL EXAM BP 103/74 Pulse 90 Temp 98.5 F (36.9 C) (Oral) Resp 18 SpO2 99% Physical Exam Constitutional: well appearing, pleasant, NAD Head: atraumatic Eyes: PERRL Nose: nares patent, Mouth: moist mucous membrane Heme/Lymphatic/Immunologic: no cervical LAD Neuro: awake, alert, active, appropriate interaction, normal speech and gait Cardiac: RRR, nl S1 and S2 Respiratory: CTA bilaterally, no added sounds, good air entry bilaterally, no respiratory distress Gastrointestinal: soft, nontender, no organomegaly, nondistended, no guarding, normoactive BS Genitourinary: no CVAT Integument: warm and dry, small scant rash noted to right forearm, left barely visible. No excoriated areas, no raised or vesicles seen. Appears dry patches. Musculoskeletal: ambulatory Psychiatric: Good eye contact. Appropriate in content/context. Normal affect. ED COURSE HIPAA: Verbal permission granted from patient to discuss case , including protected health information, in front of family / friends in room at the time of the evaluation.yes not needed - patient preferred language is Swazi. Treatments in ER: labs MEDICAL DECISION MAKING Review of External (Non- ED) Notes: Office visit from 12/31/23 reviewed and shows seen for asthma & concern for veneral disease ED prescription drug management decision making: Medications prescribed - see visit medications. Independent Test Interpretation: Lab studies reviewed, ua: + for leuks, neg for nitrates, + WBC, HCG: negative Nursing triage and assessment notes reviewed and incorporated Nature of Presenting Problem: New problem to patient. Results: Labs Reviewed URINALYSIS - Abnormal; Notable for the following components: Result Value Leuk. Esterase Positive (*) All other components within normal limits Narrative: A negative leukocyte esterase AND negative nitrite test or absence of pyuria (urine WBC count <= 5-10) make a UTI (urinary tract infection) very unlikely in a non-neutropenic adult (<=5% likelihood in many studies). A positive leukocyte esterase, nitrite and/or pyuria is a nonspecific result. This can be seen in conditions other than a UTI e.g. asymptomatic bacteriuria, gynecologic infections, sexually transmitted infections, and noninfectious conditions (positive predictive value for UTI around 50%) HCG URINE - Normal URINE HCG-IN OFFICE URINALYSIS Narrative: The following orders were created for panel order URINALYSIS. Procedure Abnormality Status --------- ------ URINALYSIS[[id number]] Abnormal Preliminary result Please view results for these tests on the individual orders. URINALYSIS,AUTO-IN OFFICE Medical Decision Making: No signs of UTI on lab & no symptoms other than she saw white stuff in her urine earlier. Denies: frequency, dysuria. Had GC treatment 2 days ago. No need for a new STD test as she was just tested @ OSH. Will need f/u with [facility] clinic to establish care. Rash is barely visible to both forearms, appears atopic in nature will start triamcinolone cream to the area for the next few days. Plan: Andrew Mena 28 year old female here with complaint of concern for rash & for concerns. Atopic dermatitis, unspecified type (Primary Diagnosis) [4732356] test negative [950372] - Spoke with the patient and discussed today s findings, in addition to providing specific details for the plan of care and counseling regarding the diagnosis and prognosis. SHe was given the opportunity to ask questions. Discussed the return indications and importance of follow-up. Advised to follow-up with [facility]UC[facility] & Derm clinic. Educated on the common potential side effects of medication to be prescribed. @Smoking cessation counseling of less than 3 minutes was provided to the patient including Reinforced decision not to smoke. Prescriptions: triamcinolone cream IMPRESSION AND DISPOSITION Clinical Impression Diagnosis Comment Atopic dermatitis, unspecified type [L20.9] test negative [Z32.02] The patient has received a medical screening examination and within reasonable clinical confidence an emergency medical condition was identified and has been stabilized. Disposition: home Patient Condition: improved Counseling: Spoke with the patient and discussed today s findings, in addition to providing specific details for the plan of care and expected course. They were given the opportunity to ask questions. Discussed return precautions and importance of follow-up. Advised to follow-up with Derm & [facility] clinic. Advised to return to the ED for changing or worsening symptoms, new symptoms, complaint specific precautions, and precautions listed on the discharge paperwork. Educated on the common potential side effects of medications prescribed. NABOR Wagoner [id number] Emergency department Note* Karla Estrada APRN-CNP - 01/02/2024 12:04 PM EDT Images from the original note were not included. EMERGENCY DEPARTMENT - VISIT NOTE HISTORY OF PRESENT ILLNESS Chief Complaint Patient presents with Test Generalized redness/erythema/rash HPI Andrew Mena 28 year old female here with complaint of rash to both arms for awhile. Nothing new per patient. No one else has a rash. Son has eczema per patient. + itching per patient. Also concerned that she could be . States she had some spotting about 2 weeks ago but feelslike she is . Has boob irritations. No VB/VD. A little crampy per patient like maybe a period cramp. Had miscarriage 2 months ago & worried that she is again. No n/v/d. No fevers. Sick contacts with similar illness : none REVIEW OF SYSTEMS Review of Systems Constitutional: Negative. Negative for chills and fever. HENT: Negative. Eyes: Negative. Respiratory: Negative. Negative for cough. Cardiovascular: Negative. Negative for chest pain. Gastrointestinal: Negative. Genitourinary: Negative for dysuria, flank pain, frequency, hematuria and urgency. White stuff in my urine. Musculoskeletal: Negative. Skin: Positive for itching and rash (spots to both forearms). Neurological: Negative. Negative for headaches. Endo/Heme/Allergies: Negative. Psychiatric/Behavioral: Negative. PAST HISTORY Pertinent Past History: reviewed No past medical history on file. Pertinent Family History: reviewed No family history on file. Pertinent Social History: reviewed Tob : denies EtOH : denies Drugs : denies LMP: 2 weeks ago had spotting Immunizations:UTD per patient PHYSICAL EXAM BP 103/74 Pulse 90 Temp 98.5 F (36.9 C) (Oral) Resp 18 SpO2 99% Physical Exam Constitutional: well appearing, pleasant, NAD Head: atraumatic Eyes: PERRL Nose: nares patent, Mouth: moist mucous membrane Heme/Lymphatic/Immunologic: no cervical LAD Neuro: awake, alert, active, appropriate interaction, normal speech and gait Cardiac: RRR, nl S1 and S2 Respiratory: CTA bilaterally, no added sounds, good air entry bilaterally, no respiratory distress Gastrointestinal: soft, nontender, no organomegaly, nondistended, no guarding, normoactive BS Genitourinary: no CVAT Integument: warm and dry, small scant rash noted to right forearm, left barely visible. No excoriated areas, no raised or vesicles seen. Appears dry patches. Musculoskeletal: ambulatory Psychiatric: Good eye contact. Appropriate in content/context. Normal affect. ED COURSE HIPAA: Verbal permission granted from patient to discuss case , including protected health information, in front of family / friends in room at the time of the evaluation.yes not needed - patient preferred language is Swazi. Treatments in ER: labs MEDICAL DECISION MAKING Review of External (Non- ED) Notes: Office visit from 12/31/23 reviewed and shows seen for asthma & concern for veneral disease ED prescription drug management decision making: Medications prescribed - see visit medications. Independent Test Interpretation: Lab studies reviewed, ua: + for leuks, neg for nitrates, + WBC, HCG: negative Nursing triage and assessment notes reviewed and incorporated Nature of Presenting Problem: New problem to patient. Results: Labs Reviewed URINALYSIS - Abnormal; Notable for the following components: Result Value Leuk. Esterase Positive (*) All other components within normal limits Narrative: A negative leukocyte esterase AND negative nitrite test or absence of pyuria (urine WBC count <= 5-10) make a UTI (urinary tract infection) very unlikely in a non-neutropenic adult (<=5% likelihood in many studies). A positive leukocyte esterase, nitrite and/or pyuria is a nonspecific result. This can be seen in conditions other than a UTI e.g. asymptomatic bacteriuria, gynecologic infections, sexually transmitted infections, and noninfectious conditions (positive predictive value for UTI around 50%) HCG URINE - Normal URINE HCG-IN OFFICE URINALYSIS Narrative: The following orders were created for panel order URINALYSIS. Procedure Abnormality Status --------- ------ URINALYSIS[[id number]] Abnormal Preliminary result Please view results for these tests on the individual orders. URINALYSIS,AUTO-IN OFFICE Medical Decision Making: No signs of UTI on lab & no symptoms other than she saw white stuff in her urine earlier. Denies: frequency, dysuria. Had GC treatment 2 days ago. No need for a new STD test as she was just tested @ OSH. Will need f/u with [facility] clinic to establish care. Rash is barely visible to both forearms, appears atopic in nature will start triamcinolone cream to the area for the next few days. Plan: Pjmarisajoceline Mena 28 year old female here with complaint of concern for rash & for concerns. Atopic dermatitis, unspecified type (Primary Diagnosis) [9645539] test negative [015591] - Spoke with the patient and discussed today s findings, in addition to providing specific details for the plan of care and counseling regarding the diagnosis and prognosis. SHe was given the opportunity to ask questions. Discussed the return indications and importance of follow-up. Advised to follow-up with [facility] & Derm clinic. Educated on the common potential side effects of medication to be prescribed. @Smoking cessation counseling of less than 3 minutes was provided to the patient including Reinforced decision not to smoke. Prescriptions: triamcinolone cream IMPRESSION AND DISPOSITION Clinical Impression Diagnosis Comment Atopic dermatitis, unspecified type [L20.9] test negative [Z32.02] The patient has received a medical screening examination and within reasonable clinical confidence an emergency medical condition was identified and has been stabilized. Disposition: home Patient Condition: improved Counseling: Spoke with the patient and discussed today s findings, in addition to providing specific details for the plan of care and expected course. They were given the opportunity to ask questions. Discussed return precautions and importance of follow-up. Advised to follow-up with Derm & [facility] clinic. Advised to return to the ED for changing or worsening symptoms, new symptoms, complaint specific precautions, and precautions listed on the discharge paperwork. Educated on the common potential side effects of medications prescribed. NABOR Wagoner * Rivas Valdez MD - 01/02/2024 10:59 AM EDT Physician Triage Note The patient was seen by me in intake for a brief history and physical obtained for triage reasons only. My exam is intended to be an initial medical screening exam for disposition within our ED with limited initial orders placed, when appropriate, to expedite care by the treating team. HIPAA: Verbal permission granted from patient to discuss case, including protected health information, in front of family / friends in room at the time of the evaluation. Patient complains of Rash on both forearms x 2 years.! Mild itching.Otherwise feels well. . Focused Exam: Healthy. Very faint rash on both forearms. The patient is deemed appropriate for RME. Initial orders: None. The remainder of testing, treatment, and diagnostic plan will be assumed by the next clinician who will be seeing the patient as a primary patient, creating a plan and impression, and final disposition of the patient from the ED. I had a limited role in this case. PLEASE SEE OTHER ATTENDING/RESIDENT/PHYSICIAN/SUGAR SAMPLER/PA NOTATION Rivas Valdez MD documented in this [id number] NotePhysician Triage Note The patient was seen by me in intake for a brief history and physical obtained for triage reasons only. My exam is intended to be an initial medical screening exam for disposition within our ED with limited initial orders placed, when appropriate, to expedite care by the treating team. HIPAA: Verbal permission granted from patient to discuss case, including protected health information, in front of family / friends in room at the time of the evaluation. Patient complains of Rash on both forearms x 2 years.! Mild itching.Otherwise feels well. . Focused Exam: Healthy. Very faint rash on both forearms. The patient is deemed appropriate for RME. Initial orders: None. The remainder of testing, treatment, and diagnostic plan will be assumed by the next clinician who will be seeing the patient as a primary patient, creating a plan and impression, and final disposition of the patient from the ED. I had a limited role in this case. PLEASE SEE OTHER ATTENDING/RESIDENT/PHYSICIAN/SUGAR SAMPLER/PA NOTATION Rivas Valdez MDThe [facility] [id number] Physician Emergency department Note* Rivas Valdez MD - 01/02/2024 10:59 AM EDT Physician Triage Note The patient was seen by me in intake for a brief history and physical obtained for triage reasons only. My exam is intended to be an initial medical screening exam for disposition within our ED with limited initial orders placed, when appropriate, to expedite care by the treating team. HIPAA: Verbal permission granted from patient to discuss case, including protected health information, in front of family / friends in room at the time of the evaluation. Patient complains of Rash on both forearms x 2 years.! Mild itching.Otherwise feels well. . Focused Exam: Healthy. Very faint rash on both forearms. The patient is deemed appropriate for RME. Initial orders: None. The remainder of testing, treatment, and diagnostic plan will be assumed by the next clinician who will be seeing the patient as a primary patient, creating a plan and impression, and final disposition of the patient from the ED. I had a limited role in this case. PLEASE SEE OTHER ATTENDING/RESIDENT/PHYSICIAN/SUGAR SAMPLER/PA NOTATION Rivas Valdez MD [facility] Work Phone: [phone] Telephone encounter Note* Telephone Encounter - Peggy Gould RN - 10/27/2023 1:16 PM EDT Situation: Patient is calling to discuss test results. Background: Pt reports she had labs drawn today and would like to know the value of her HCG level Pt reports she was seen in the ED on 10/23/23 for vaginal bleeding in and was told she needed to have repeat labs and to schedule appt with an OBGYN provider. Appt was scheduled with OBGYN for today at 2:00 pm however patient states she can no go to this appt. Assessment: results have been finalized, and HCG level was provided to the patient however she has further questions regarding the lab including if she did have a miscarriage. Recommendation: This RN encouraged patient to go to scheduled appt for today however she is unable to make the appt. Will send high priority message to treating provider as well as ED test results pool for further review and recommendation as patient does not have PCP or OB. Peggy Gould RN [id number] Miscellaneous Notes* Telephone Encounter - Peggy Gould RN - 10/27/2023 1:16 PM EDT Situation: Patient is calling to discuss test results. Background: Pt reports she had labs drawn today and would like to know the value of her HCG level Pt reports she was seen in the ED on 10/23/23 for vaginal bleeding in and was told she needed to have repeat labs and to schedule appt with an OBGYN provider. Appt was scheduled with OBGYN for today at 2:00 pm however patient states she can no go to this appt. Assessment: results have been finalized, and HCG level was provided to the patient however she has further questions regarding the lab including if she did have a miscarriage. Recommendation: This RN encouraged patient to go to scheduled appt for today however she is unable to make the appt. Will send high priority message to treating provider as well as ED test results pool for further review and recommendation as patient does not have PCP or OB. Peggy Gould, STEFANIE documented in this [id number] Telephone encounter Note* Telephone Encounter - Elizabeth Schmidt - 10/26/2023 10:34 AM EDT POSITIVE TEST DOCUMENTATION Patient appeared on positive test report on 10/24/23 Patient had a positive test on : 10/23/23 Chart reviewed. Patient has a New OB visit scheduled for Future Appointments (next 10) Provider Department Center 10/27/2023 2:00 PM Sandie Raymundo MD; [address] SUPER[employer] FINISHING NUR[facility] SUPERVISOR [employer] FINISHING [facility] [facility] [id number] Miscellaneous Notes* Telephone Encounter - Elizabeth Schmidt - 10/26/2023 10:34 AM EDT POSITIVE TEST DOCUMENTATION Patient appeared on positive test report on 10/24/23 Patient had a positive test on : 10/23/23 Chart reviewed. Patient has a New OB visit scheduled for Future Appointments (next 10) Provider Department Center 10/27/2023 2:00 PM Sandie Raymundo MD; [address] SUPERVISOR STAVE FINISHING NURSE [facility] SUPERVISOR [employer] FINISHING [facility] documented in this [id number] Telephone encounter Note* Telephone Encounter - Thania Rey RN - 10/25/2023 1:56 PM EDT Situation: Test results Background: 10/23/23 Assessment: Negative yeast, STD's Recommendation: Verbalized understanding. Stated she was having a hard time with recent miscarriagebut declined nurse triage at this time. [id number] Miscellaneous Notes* Telephone Encounter - Thania Rey RN - 10/25/2023 1:56 PM EDT Situation: Test results Background: 10/23/23 Assessment: Negative yeast, STD's Recommendation: Verbalized understanding. Stated she was having a hard time with recent miscarriagebut declined nurse triage at this time. documented in this [id number] NoteProvider Start Note The patient was seen by me in intake for a brief history and physical obtained for triage reasons only. My exam is intended to be an initial medical screening exam for disposition within our ED with limited initial orders placed, when appropriate, to expedite care by the treating team. Patient complains of spotting and lower abdominal cramps x 2 days. States is 5-6 weeks OB Focused Exam: NAD The patient is deemed appropriate for [place]. Initial orders: labs, imaging. The remainder of testing, treatment, and diagnostic plan will be assumed by the next clinician who will be seeing the patient as a primary patient, creating a plan and impression, and final disposition of the patient from the ED. I had a limited role in this case. PLEASE SEE OTHER ATTENDING/RESIDENT/PHYSICIAN/SUGAR SAMPLER/PA NOTATION Renetta Mccormack APRN-HAROONThe [facility]04-24-[facility]24 Discharge summary Author Vipul Gagnon [facility] October 14, 2023 10:52pm Note Date/Time October 14, 2023 7:4 4pm [facility] Medical Records Department [address] [place] [address] Emergency Department Summary 10/14/23 MR#: [id number] Acct: [id number] Name: ANDREW MENA Rep #:[id number] : 1995 28 From: Vipul Merino PCP: Dr. Nanci Corral MD Status:R EG ER Location: ED HPI HPI - Female History of Present Illness Chief Complaint: PFSH PFSH Medical History Asthma Morbid obesity Obesity (BMI 30-39.9) Seasonal allergies Vaginal discharge Home Medications albuterol sulfate 90 mcg/actuation aerosol inhaler 1 inh inhalation Q6H PRN shortness of breath or wheezing #8.5 grams 02/13/21 [Rx Last Taken 08/11/22] loratadine 10 mg tablet (Allergy Relief (loratadine)) 10 mg PO DAILY Check with primary doctor 08/18/22 [History Last Taken 08/18/22] Allergy/AdvReac Type Severity Reaction Status Date / Time penicillin G Allergy Mild Hives Verified 10/14/23 19:15 venom-honey bee Allergy Swelling Verified 10/14/23 19:15 [bee venom (honey bee)] Family History Grandmother Asthma Arthritis Surgical History History of wisdom tooth extraction Social History Smoking Status: Current some day smoker tobacco type: cigarettes alcohol intake: never substance use type: does not use what type of physical activity do you participate in: walking frequency: 5-6 times per week EXAM Physical Exam Const Vital Signs: 10/14/23 19:15 Temperature 98 F Temperature Source Temporal Pulse Rate 111 H Respiratory Rate 16 Blood Pressure 132/90 H Blood Pressure Mean 104 Pulse Ox 100 MDM MDM MDM Narrative Medical decision making narrative: HISTORY OF PRESENT ILLNESS: 28-year-old female presents with vaginal discharge. States he is approximate 4 weeks . Notes some crampy left lower abdominal pain. No vomiting. Sheis a . No history of ectopic or miscarriage. Denies any trauma to the abdomen. No vaginal bleeding. She is not concerned with STDs. REVIEW OF SYSTEMS: Pertinent positives: Vaginal discharge, abdominal cramping Pertinent negatives: Syncope, chest pain, shortness of breath, fever, trouble urinating, diarrhea PHYSICAL EXAM: Nursing triage notes reviewed, Vital signs reviewed Constitutional: please see mdm HENT: MMM Eyes: Pupils equal round and reactive to light, Extraocular muscles intact Neck: No stridor, no JVD, full neck ROM Lungs: Clear to auscultation, No wheezing or rales. No increased work of breathing, no conversational dyspnea, no accessory muscle use, no nasal flaring. No respiratory distress noted Heart: Regular rate and rhythm, No murmurs, No rubs and No gallops, 2+ distal pulses (radial, femoral, posterior tibial) in all extremities Abdomen: Soft, there is no tenderness, rigidity, rebound or guarding, no obviousperitoneal signs, no palpable pulsatile abdominal masses, no auscultated abdominal bruit : No CVAT, deferred by patient Extremities: No edema Neuro: No focal neurological deficits, cranial nerves II through XII intact, 5/5strength in all extremities. Intact sensation to light touch in all extremities,2+ reflexes bilateral patella tendons. Normal gait. No ataxia. Skin: No rash or lesions noted MEDICAL DECISION MAKING: Chief Complaint: Vaginal discharge External records reviewed: Admitted for alcohol dependence. In August 2022 Factors affecting care: Plan substance abuse Social determinants of health: History of prior substance abuse History obtained from others: none Consults: none MDM Narrative: Patient was initially hemodynamically stable, afebrile, nontoxic-appearing. Exam with a benign appearing abdominal exam. Offered pelvic exam and STD testing however this was deferred by the patient. I considered the following differential diagnosis: Early , ectopic (, miscarriage ALL IMAGES (IF OBTAINED) HAVE BEEN PERSONALLY REVIEWED AND INTERPRETED BY MYSELF. Quantitative hCG 91 Urinalysis shows no evidence of urinary inflammation suggestive of UTI O+, no vaginal bleeding, no acute for RhoGAM Pelvic ultrasound shows no obvious intrauterine likely too early to assess viability of given low hCG and the patient reported being only 4 weeks . The patient and/or family, caregivers express understanding. The patient and/orfamily, caregivers agrees with the plan. Shared decision making: I will have a discussion with the patient and or visitors regarding risk/benefits of further testing or admission. They will be made aware of of the risk/benefits inherent in this decision they will be given the opportunity to voice understanding. Total critical care time today provided was at least 0 [] minutes. This excludes separately billable procedures. Critical care time (if documented) is secondary to the patient having high probability of clinically significant/life threatening deterioration in the patient's condition which required my urgent intervention. Impression: 1. First trimester 2. Vaginal discharge Dispo: Discharge home This note was generated with [employer] software. It may contain incorrect words, spelling, and punctuation that were not noted in review of the chart prior to signing. Lab Data Labs: Laboratory Results - last 24 hr 10/14/23 10/14/23 10/14/23 20:22 20:35 21:48 HCG, Quant 91 H Urine Color Yellow Urine Clarity Sl. Cloudy Urine pH 6.5 Ur Specific [place] 1.020 Urine Protein Negative Urine Glucose (UA) Normal Urine Ketones Negative Urine Occult Blood 10 H Urine Nitrite Negative Urine Bilirubin Negative Urine Urobilinogen Normal Ur Leukocyte Esterase Negative Urine RBC 0-5 SEEN Urine WBC 0 SEEN Ur Squamous Epith Cells 0-5 SEEN Amorphous Sediment 1+ URATE Urine Bacteria 0 SEEN Urine Mucus 0 SEEN Blood Type Cancelled O POSITIVE Radiography Diagnostic Testing: Clinical Impression(s) from Imaging Studies Obstetrics Ultrasound 10/14/23 19:59 IMPRESSION: No intrauterine gestation seen. No free fluid. Electronically Signed: Yehuda Tijerina MD at 22:49 EDT Reading Location ID and State: [address] [place] [address] , Service support , Discharge Plan Triage Chief Complaint: ED Provider: Vipul Gagonn Dx/Rx/DC Orders Clinical Impression: Vaginal discharge Instructions: 1st Trimester Prescriptions: No Action albuterol sulfate 90 mcg/actuation HFA aerosol inhaler 1 inh inhalation Q6H PRN (Reason: shortness of breath or wheezing) Qty: 8.5 3RF loratadine [Allergy Relief (loratadine)] 10 mg tablet 10 mg PO DAILY Primary Care Provider: Nanci Corral Referrals: Mariann Cardoza MD [Med Staff - Active Staff] - Activity Restrictions/Additional Instructions: Thank you for trusting us with your care today! Please take Tylenol (2 pills, 650 mg) every 6 hours as needed for pain and fevercontrol. Please return to the emergency department if your symptoms change or worsen. Please follow with your OBGYN for further outpatient evaluation and management. Disposition Disposition: Home, Self Care What to do if you have Problems For any increased pain, shortness of breath, bleeding, nausea or vomiting, chestpain, or any unexpected problems, contact your Primary Care Provider. Call [facility] ([phone]) or report to the closest Emergency Room. Call 911 if necessary. 10/14/23 0601 <Electronically signed by Vipul Gagnon DO> Cosigner Signature (if applicable): CC: Dr. Nanci Corral MD ~ Signed [facility] Work Phone: 1(704) 663-877604-22-2024 Telephone encounter Note* Telephone Encounter - Madeline Tubbs LPN - 10/12/2023 2:44 PM EDT Spoke with pt and information listed below given. Pt verbalizes understanding. Madeline Tubbs LPN [facility]04-22-2024 Miscellaneous Notes* Telephone Encounter - Madeline Tubbs LPN - 10/12/2023 2:44 PM EDT Spoke with pt and information listed below given. Pt verbalizes understanding. Madeline Tubbs LPN * Telephone Encounter - Elle Hathaway APRN.CNP - 10/12/2023 2:41 PM EDT Please call patient back let her know I did refill her albuterol. Please let her know that we cannot refill any other medication as she was this morning. Patient should follow-up with ADULT EDUCATION TEACHER and they can let her know what she can and cannot take. * Telephone Encounter - Madeline Tubbs LPN - 10/12/2023 2:32 PM EDT Pt reports was seen today and she checked with the [facility] and the Pro Air inhaler and Zyrtec was not sent to the pharmacy. Please send to the pharmacy and pt wanted to make sure okayto take Zyrtec since she was told she is . Please advise pt. Madeline Tubbs LPN documented in [facility] Telephone encounter Note * Telephone Encounter - Elle Hathaway APRN.CNP - 10/12/2023 2:41 PM EDT Please call patient back let her know I did refill her albuterol. Please let her know that we cannot refill any other medication as she was this morning. Patient should follow-up with ADULT EDUCATION TEACHER and they can let her know what she can and cannot take. [facility]04-22-2024 Telephone encounter Note* Telephone Encounter - Madeline Tubbs LPN - 10/12/2023 2:32 PM EDT Pt reports was seen today and she checked with the [facility] and the Pro Air inhaler and Zyrtec was not sent to the pharmacy. Please send to the pharmacy and pt wanted to make sure okayto take Zyrtec since she was told she is . Please advise pt. Madeline Tubbs LPN [facility]04-22-2024 Instructions* Patient Instructions* Elle Hathaway APRN.CNP - 10/12/2023 8:48 AM EDT Patient test is positive she should follow up with ADULT EDUCATION TEACHER . documented in this [facility] History of Present illness Narrative* Elle Hathaway APRN.CNP - 10/12/2023 8:20 AM EDT CC: Patient presents with: Vaginal Problem: Vaginal discharge, yellow, slight odor, itching x 2 days HPI Andrew Mena is a 28 year old female who presents with complaint of possible UTI. These symptoms have been present for 2 days. Associated symptoms: burning and abnormal vaginal discharge Denies: fever, chills, sweats, abdominal pain, and flank pain Treatments: nothing The ROS was otherwise negative. PMH, Medications, labs, allergies, and recent past visits with PCP were reviewed and updated as able. PHYSICAL EXAM: BP 112/78 Pulse 99 Temp 36.2 C (97.1 F) Resp 21 Wt 101 kg (222 lb 10.6 oz) LMP 09/15/2023(Exact Date) SpO2 98% BMI 37.10 kg/m General: Well appearing and alert CV: Regular rate and rhythm without obvious murmur Lungs: clear to auscultation bilaterally Back: straight and symmetric Abdomen: soft, nontender, nondistended PAST MEDICAL HISTORY Diagnosis Date Marijuana use Methamphetamine abuse (HCC) Substance abuse (HCC) PAST SURGICAL HISTORY Procedure Laterality Date NEXPLANON INSERTION Left 02/22/2021 PAST SURGICAL HISTORY OF wisdom teeth ALLERGIES Penicillins and Venom-Honey Bee MEDICATIONS cetirizine (ZYRTEC) 10 mg tablet Take 1 tablet by mouth once daily. triamcinolone acetonide (KENALOG) 0.1 % cream Apply to affected area twice daily. For up to 2 weeksat a time. spironolactone (ALDACTONE) 50 mg tablet Take 1 tablet by mouth once daily. albuterol HFA (PROAIR HFA) 90 mcg/actuation inhaler Inhale 2 Puffs as instructed every 6 hours as needed. albuterol HFA (PROVENTIL HFA, VENTOLIN HFA) 90 mcg/actuation inhaler Inhale 2 Puffs as instructed every 4 hours as needed. albuterol HFA (PROVENTIL HFA, VENTOLIN HFA) 90 mcg/actuation inhaler Inhale 2 Puffs as instructed every 4 hours as needed for wheezing/shortness of breath. (Patient not taking: Reported on 10/12/2023) zinc oxide (DESITIN) 13 % crea Apply to affected area as needed for up to 7 days. albuterol HFA (VENTOLIN HFA) 90 mcg/actuation inhaler Inhale 2 Puffs as instructed every 4 hours asneeded for Wheezing/Shortness of Breath. (Patient not taking: Reported on 10/12/2023) FAMILY HISTORY Problem Relation Age of Onset Seizures Maternal Grandmother Social History Tobacco Use Smoking status: Former Years: 3 Types: Cigarettes Smokeless tobacco: Never Tobacco comments: vape Vaping Use Vaping Use: Never used Substance Use Topics Alcohol use: No Drug use: Yes ASSESSMENT/PLAN: 1. Burning with urination - ICD9: 788.1, ICD10: R30.0 (primary diagnosis) - UA DIP, URINE (POC) - URINE CULTURE 2. Vaginal discharge - ICD9: 623.5, ICD10: N89.8 - BACTERIAL VAGINOSIS NAAT - EULALIA/TRICHOMONAS NAAT - GONORRHEA/CHLAMYDIA NAAT test- will set up ADULT EDUCATION TEACHER appt Prescription instructions reviewed with patient as applicable. Potential red flag symptoms discussed with the patient. Reviewed appropriate action plan to take if red flag symptoms occur. Patient agreeable to treatment plan. Elle Hathaway APRN.HAROON documented in this encounterMary [facility]04-[facility]-2024 Miscellaneous Notes* Telephone Encounter - Sharon Montalvo LPN - 09/30/2023 7:27 PM EDT Still unable tor reach patient but she did review her results on my chart today at 4:24 pm.Sharon Montalvo LPN * Telephone Encounter - Henok Tejeda MD - 09/30/2023 4:44 PM EDT In addition to initial results in this encounter, urine culture showed no clear infection. * Telephone Encounter - Brandy Feldman - 09/30/2023 7:50 AM EDT Left message for patient to call and ask to talk to a triage nurse. Brandy Feldman * Telephone Encounter - Elle Hathaway APRN.CNP - 09/30/2023 7:15 AM EDT Please let patient know she is negative for bacterial vaginosis, trichomonas, yeast, gonorrhea, andchlamydia. If patient's symptoms persist she should follow- up with her ADULT EDUCATION TEACHER. Still waiting for urineculture. documented in this encounterMary [facility]04-[facility] Instructions* Patient Instructions* Martha Aguillon APRN.CNP - 09/29/2023 3:06 PM EDT ASSESSMENT/PLAN: 1. Dysuria - ICD9: 788.1, ICD10: R30.0 (primary diagnosis) acute - UA positive for trace ketones - Patient education for prevention given - UA DIP, URINE (POC) - URINE CULTURE - UA DIP,URINE HCG (POC)-negative in office. 2. Exposure to gonorrhea - ICD9: V01.6, ICD10: Z20.2 - GONORRHEA/CHLAMYDIA NAAT - EULALIA/TRICHOMONAS NAAT - BACTERIAL VAGINOSIS NAAT - CEFTRIAXONE 500 MG SOLUTION FOR INJECTION - Follow-up with your PCP in 3-5 days if symptoms have not improved or sooner if symptoms worsen - Discussed red flags and need for immediate medical evaluation if any occur. - Discussed supportive care treatment with fluids, rest and analgesia. - Discussed expected course of illness Martha Aguillon APRN.CNP T SAFER SEX: The idea behind safer sex is that you can be sexually active and at the same time reduce the risk of giving or getting a sexually transmitted disease (STD). STD s are transmitted by sharing body fluids which harbor viruses or bacteria. Semen, urine, blood and vaginal mucous can all transmit infections during sex. Examples of sexually transmitted infections include chlamydia, gonorrhea, herpes, hepatitis, genital warts and AIDS. Sexual diseases often cause few or no symptoms until they are advanced, so a person can be infectedand spread the infection without knowing it. You never become immune to sexual diseases. Some STD srespond to treatment very well, others, like AIDS and herpes, cannot be cured, but are treated to reduce their effects. Being careful cannot eliminate all risk of infection, but sex can be made much safer. Safe sexual practices include hugging, body massage, and gentle touching. Masturbation is safe as long as body fluids do not contact any skin that has sores or cuts. Dry kissing and oral sex on a manwearing a latex condom or on a woman wearing a female condom is also safe. Slightly less safe is intercourse while the man wears a latex condom and wet kissing. Alcohol and recreational drugs are often the reason given for not practicing safer sex. These substances affect not only your judgment, but also impair your immune system, making you more vulnerable to disease. Risky and dangerous sexual practices include vaginal or anal sex without a condom, oral sex on a man without a condom, oral sex on a woman without a female condom, using saliva to lubricate a condom,or any other sexual contact in which body fluids or blood from one partner contacts the other. You should use only latex condoms and water soluble lubricants like K-Y jelly. Vaseline or oils used to lubricate a condom will weaken the condom and increase the chance it will break. Use spermacide gel that contains at least 5% Nonoxynol-9 along with the condom; this reduces the risk of as well as transmitting the AIDS virus. Think very carefully before having sex with anyone who is high risk for STD and AIDS. These include IV drug users, people with multiple sexual partners, or those that have had a positive HIV blood test. documented in this [facility]04[facility] History of Present illness Narrative* Martha Aguillon APRN.CNP - 09/29/2023 3:00 PM EDT Subjective HPI Andrew Mena is a 28 year old female who presents with concern for STD Had a known exposure to chlamydia last week This week she has been having pelvic burning and vaginal discharge. Discharge is heavy enough to warrant wearing a pad Denies fever. Is currently sexually active- LMP was 2 weeks ago. Review of Systems Constitutional: Negative for chills and fever. Respiratory: Negative. Cardiovascular: Negative. Gastrointestinal: Positive for abdominal pain (pelvic burning). Negative for diarrhea, nausea and vomiting. Genitourinary: Positive for dysuria. Negative for frequency, hematuria and urgency. Musculoskeletal: Negative for back pain. Skin: Negative for itching and rash. PAST MEDICAL HISTORY Diagnosis Date Marijuana use Methamphetamine abuse (HCC) Substance abuse (HCC) PAST SURGICAL HISTORY Procedure Laterality Date NEXPLANON INSERTION Left 02/22/2021 PAST SURGICAL HISTORY OF wisdom teeth ALLERGIES Penicillins and Venom-Honey Bee MEDICATIONS cetirizine (ZYRTEC) 10 mg tablet^Take 1 tablet by mouth once daily.^Disp: 90 tablet^Rfl: 3 triamcinolone acetonide (KENALOG) 0.1 % cream^Apply to affected area twice daily. For up to 2 weeksat a time.^Disp: 45 g^Rfl: 3 albuterol HFA (PROVENTIL HFA, VENTOLIN HFA) 90 mcg/actuation inhaler^Inhale 2 Puffs as instructed every 4 hours as needed for wheezing/shortness of breath.^Disp: 8 g^Rfl: 0 spironolactone (ALDACTONE) 50 mg tablet^Take 1 tablet by mouth once daily.^Disp: 30 tablet^Rfl: 11 albuterol HFA (PROAIR HFA) 90 mcg/actuation inhaler^Inhale 2 Puffs as instructed every 6 hours as needed.^Disp: 1 Each^Rfl: 0 albuterol HFA (VENTOLIN HFA) 90 mcg/actuation inhaler^Inhale 2 Puffs as instructed every 4 hours asneeded for Wheezing/Shortness of Breath.^Disp: 1 Inhaler^Rfl: 0 albuterol HFA (PROVENTIL HFA, VENTOLIN HFA) 90 mcg/actuation inhaler^Inhale 2 Puffs as instructed every 4 hours as needed.^Disp: 1 Inhaler^Rfl: 0 zinc oxide (DESITIN) 13 % crea^Apply to affected area as needed for up to 7 days.^Disp: 57 g^Rfl: 0 FAMILY HISTORY Problem Relation Age of Onset Seizures Maternal Grandmother Social History Tobacco Use Smoking status: Former Years: 3 Types: Cigarettes Smokeless tobacco: Never Tobacco comments: vape Vaping Use Vaping Use: Never used Substance Use Topics Alcohol use: No Drug use: Yes Objective Physical Exam Vitals and nursing note reviewed. Constitutional: Appearance: Normal appearance. Cardiovascular: Rate and Rhythm: Normal rate. Pulmonary: Effort: Pulmonary effort is normal. Genitourinary: Comments: Exam deferred-patient requests self swab Skin: General: Skin is warm and dry. Neurological: Mental Status: She is alert. ASSESSMENT/PLAN: 1. Dysuria - ICD9: 788.1, ICD10: R30.0 (primary diagnosis) acute - UA positive for trace ketones - Patient education for prevention given - UA DIP, URINE (POC) - URINE CULTURE - UA DIP,URINE HCG (POC)-negative in office. 2. Exposure to gonorrhea - ICD9: V01.6, ICD10: Z20.2 - GONORRHEA/CHLAMYDIA NAAT - EULALIA/TRICHOMONAS NAAT - BACTERIAL VAGINOSIS NAAT - CEFTRIAXONE 500 MG SOLUTION FOR INJECTION - Follow-up with your PCP in 3-5 days if symptoms have not improved or sooner if symptoms worsen - Discussed red flags and need for immediate medical evaluation if any occur. - Discussed supportive care treatment with fluids, rest and analgesia. - Discussed expected course of illness Martha Aguillon APRN.HAROON documented in this encounter[facility] Hospital Discharge instructions* Discharge Instructions* Zahraa Patino PA-C - 09/10/2023 4:28 PM EDT Labs and Gallbladder ultrasound are normal. Abstinence x1 week to ensure treatment of possible STD infection. Please call [phone] for Primary Care referral for follow up appointments. Follow up with Women's Health clinic as needed. You will receive a phone call if any tests return positive. * Attachments The following attachments cannot be sent through Care Everywhere. * Sexually transmitted infections ([place]) [facility] Work Phone: 1(336) 588-966903-21-2024 History of Present illness Narrative* Zahraa Patino PA-C - 09/10/2023 2:55 PM EDT Emergency Medicine Transition of Care Note. I received Andrew Mena in signout from Melba, SUGAR SAMPLER. Please see the previous ED provider note for all HPI, PE and MDM up to the time of signout at 1400. This is in addition to the primary record. In brief Andrew Mena is an 28 y.o. female presenting for Chief Complaint Patient presents with Exposure to STD At the time of signout we were awaiting: labs, RUQ US. Pt c/f gonorrhea exposures - empirically treated here. Negative urine preg test. Pending CMP and RUQ US d/t reported +Mccarthy's sign on previous provider's physical exam. CMP WNL. RUQ US unremarkable. Instructed to remain abstinent for the next week to ensure any possible infection is fully treated. Follow-up with PCP and women's health clinic as needed. Diagnostics Labs Reviewed URINALYSIS WITH REFLEX CULTURE AND MICROSCOPIC - Normal Result Value Color, Urine Light-Yellow Appearance, Urine Clear Specific [place], Urine 1.009 pH, Urine 7.0 Protein, Urine NEGATIVE Glucose, Urine Normal Blood, Urine NEGATIVE Ketones, Urine NEGATIVE Bilirubin, Urine NEGATIVE Urobilinogen, Urine Normal Nitrite, Urine NEGATIVE Leukocyte Esterase, Urine NEGATIVE HUMAN CHORIONIC GONADOTROPIN, SERUM QUANTITATIVE - Normal HCG, Beta-Quantitative <3 Narrative: Total HCG measurement is performed using the Siemens Atellica immunoassay which detects intact HCG and free beta HCG subunit. This test is not indicated for use as a tumor marker. HCG testing is performed using a different test methodology at [facility] than other [facility]. Direct result comparison should only be made within the same method. HIV 1/2 ANTIGEN/ANTIBODY SCREEN WIH REFLEX TO CONFIRMATION - Normal HIV 1/2 Antigen/Antibody Screen with Reflex to Confirmation Nonreactive Narrative: HIV Ag/Ab screen is performed using the Siemens Atellica HIV Ag/Ab Combo assay which detects the presence of HIV p24 antigen as well as antibodies to HIV-1 (Group M and O) and HIV-2. No laboratory evidence of HIV infection. If acute HIV infection is suspected, consider testing for HIV RNA by PCR (viral load). POCT , URINE - Normal Preg Test, Ur Negative WET PREP, GENITAL Trichomonas None Seen Clue Cells None Seen Yeast None Seen WBC 3-8 C. TRACHOMATIS + N. GONORRHOEAE, AMPLIFIED URINALYSIS WITH REFLEX CULTURE AND MICROSCOPIC Narrative: The following orders were created for panel order Urinalysis with Reflex Culture and Microscopic. Procedure Abnormality Status --------- ------ Urinalysis with Reflex C...[[id number]] Normal Final result Extra Urine Pelaez Tube[[id number]] Please view results for these tests on the individual orders. EXTRA URINE PELAEZ TUBE SYPHILIS SCREENING WITH REFLEX HEPATITIS C RNA, QUANTITATIVE, PCR COMPREHENSIVE METABOLIC PANEL US gallbladder (Results Pending) Diagnoses as of 09/10/23 1633 Exposure to gonorrhea Final diagnoses: None Zahraa Patino PA-C documented in this [facility] Work Phone: 1(172) 972-266703-21-2024 Emergency department Note* Daniella Wilson, FOSTER-SUGAR SAMPLER - 09/10/2023 10:38 AM EDT HPI Chief Complaint Patient presents with Exposure to STD Andrew Mena is a 28-year-old female with no significant past medical history reported who presents to the emergency department with complaints of STD exposure. Patient reports her partner recentlytold her he tested positive for gonorrhea. Questioned if patient is experiencing any vaginal symptoms, reports it is not right down there, endorses dyspareunia. No vaginal bleeding. LMP 07/26/2023, typically periods are regular. Patient also reports she has been experiencing abdominal symptoms for approximately a month, states it feels as if her stomach is getting larger, endorses bloating, and relatively persistent diffuse abdominal cramping/sharp pains, rates discomfort 7/10, aggravated after eating certain foods, denies alleviating factors or taking anything for her symptoms. Patient reports associated nausea. Patient otherwise denies fever, chills, headache, lightheadedness or dizziness, chest discomfort, shortness of breath, vomiting, diarrhea, constipation, melena, dysuria, urinary frequency or urgency. History provided by: Patient record label intern used: No [place] Coma Scale Score: 15 Patient History No past medical history on file. No past surgical history on file. No family history on file. Social History Tobacco Use Smoking status: Not on file Smokeless tobacco: Not on file Substance Use Topics Alcohol use: Not on file Drug use: Not on file Physical Exam ED Triage Vitals [09/10/23 1040] Temperature Heart Rate Respirations BP 37.2 C (99 F) 91 16 126/76 Pulse Ox Temp Source Heart Rate Source Patient Position 97 % Temporal -- -- BP Location FiO2 (%) -- -- Physical Exam VS reviewed GEN: Nontoxic-appearing female in no acute distress. HEENT: NCAT, PERRL. EOMI. NECK: Supple, no lymphadenopathy CHEST: Lungs clear to throughout, bilaterally. No wheezing, rhonchi, or rales HEART: RRR, Normal S1, S2. No murmurs/rubs/gallops. ABD: Morbidly obese. Soft, + Mccarthy's sign. Mild TTP across lower abdomen. Non- surgical. No guarding, rebound tenderness or palpable mass. PELVIC: External vagina without rashes, lesions or ulcerations. No active bleeding or discharge noted. Speculum exam without discharge or bleeding within pelvic vault. Cervical os closed. Bimanual exam without cervical motion tenderness or bilateral adnexal tenderness. BACK: No CVA tenderness. No scoliosis EXT : Moving BUE and BLE at baseline. No clubbing, cyanosis or edema. NEURO: Alert, oriented, and appropriately interactive. No focal neurological deficits. PSYCH: Calm and cooperative. [place] . ED Course & MDM Medical Decision Making Andrew Mena is a 28-year-old female with no significant past medical history reported who presents to the emergency department with complaints of STD exposure. Reviewed prior and current encounterdocumentation, laboratory studies, diagnostic imaging results and interventions via EMR/Care Everywhere. Patient states partner recently told her he tested positive for gonorrhea and needed to seek treatment. Patient does not specifically endorse any vaginal bleeding or discharge, did report dyspareunia. Patient does voiced several complaints regarding abdominal bloating including feeling as if her stomach is growing in size over the last month or so, she does state symptoms of cramping and sharp pains which are predominantly after eating certain foods which she could not recall, does also endorse some nausea but no vomiting or other GI symptoms. Urine hCG negative. Reviewed vitals, stable and afebrile. Physical exam as documented. Respiratory and cardiac exams unrevealing. Mild tenderness across lower abdomen, positive Mccarthy's sign. Otherwise abdomen nonsurgical. Performed pelvic examin the presence of a female splunk developer, speculum exam without discharge within pelvic vault, no bleeding, cervical os closed. Bimanual exam without cervical motion tenderness, no adnexal tenderness bilaterally. Ms. Mena is in no apparent distress at this time. Patient to be treated for gonorrhea, pr eferred treatment for chlamydia but states that she will wait for results for additional treatment.Laboratory studies and right upper quadrant ultrasound to be performed. Patient treated additionally with IV fluids and Zofran. Please refer to ED course for ultrasound and laboratory study results. Patient to be endorsed to oncoming ED provider at change of shift with laboratory studies results and RUQ ultrasound pending. Anticipate patient will be discharged home. Please refer to ED progress note for additional documentation and final ED disposition. Amount and/or Complexity of Data Reviewed External Data Reviewed: labs, radiology and notes. Labs: ordered. Radiology: ordered. Procedure Procedures None Impression: STD exposure Abdominal bloating Disposition: Pending laboratory and ultrasound results. [facility] Emergency Medicine Disclaimer: This note was dictated using a speech recognition program. While an attempt was made atproof reading to minimize errors, minor errors in case sealer may be present NABOR Mckee 09/10/23 9240 * Araseli Rangel RN - 09/10/2023 10:38 AM EDT Pos. Exposure My stomach's getting big and I don't know why LMP 2/4; has yet to take preg. Test. [facility] [place] [facility]: 1(857) 256-746503-21-2024 Emergency department Triage note* Araseli Rangel RN - 09/10/2023 10:38 AM EDT Pos. Exposure My stomach's getting big and I don't know why LMP 2/4; has yet to take preg. Test. [facility] Work Phone: 1(876) 887-811103-21-2024 Physician Emergency department Note* Daniella Wilson, [employer]REL [employer]ATER-SUGAR SAMPLER - 09/10/2023 10:38 AM EDT HPI Chief Complaint Patient presents with Exposure to STD Andrew Mena is a 28-year-old female with no significant past medical history reported who presents to the emergency department with complaints of STD exposure. Patient reports her partner recentlytold her he tested positive for gonorrhea. Questioned if patient is experiencing any vaginal symptoms, reports it is not right down there, endorses dyspareunia. No vaginal bleeding. LMP 07/26/2023, typically periods are regular. Patient also reports she has been experiencing abdominal symptoms for approximately a month, states it feels as if her stomach is getting larger, endorses bloating, and relatively persistent diffuse abdominal cramping/sharp pains, rates discomfort 7/10, aggravated after eating certain foods, denies alleviating factors or taking anything for her symptoms. Patient reports associated nausea. Patient otherwise denies fever, chills, headache, lightheadedness or dizziness, chest discomfort, shortness of breath, vomiting, diarrhea, constipation, melena, dysuria, urinary frequency or urgency. History provided by: Patient record label intern used: No Dustin Coma Scale Score: 15 Patient History No past medical history on file. No past surgical history on file. No family history on file. Social History Tobacco Use Smoking status: Not on file Smokeless tobacco: Not on file Substance Use Topics Alcohol use: Not on file Drug use: Not on file Physical Exam ED Triage Vitals [09/10/23 1040] Temperature Heart Rate Respirations BP 37.2 C (99 F) 91 16 126/76 Pulse Ox Temp Source Heart Rate Source Patient Position 97 % Temporal -- -- BP Location FiO2 (%) -- -- Physical Exam VS reviewed GEN: Nontoxic-appearing female in no acute distress. HEENT: NCAT, PERRL. EOMI. NECK: Supple, no lymphadenopathy CHEST: Lungs clear to throughout, bilaterally. No wheezing, rhonchi, or rales HEART: RRR, Normal S1, S2. No murmurs/rubs/gallops. ABD: Morbidly obese. Soft, + Mccarthy's sign. Mild TTP across lower abdomen. Non- surgical. No guarding, rebound tenderness or palpable mass. PELVIC: External vagina without rashes, lesions or ulcerations. No active bleeding or discharge noted. Speculum exam without discharge or bleeding within pelvic vault. Cervical os closed. Bimanual exam without cervical motion tenderness or bilateral adnexal tenderness. BACK: No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 Mental Status: She is alert and oriented to person, place, and time. Psychiatric: Mood and Affect: Mood normal. Assessment and Plan 1. Vaginal discharge - VAGINTIS PLUS, NUSWAB - metroNIDAZOLE (FLAGYL) 500 mg tablet; Take 1 Tablet by mouth 2 (two) times daily for 7 days Dispense: 14 Tablet; Refill: 0 2. Urinary pain - URINALYSIS, MCKESSON (POCT) Will treat based on symptoms, once results received will follow up if meds need to be changed documented [facility] Work Phone: [phone] History of Present illness Narrative* Isidro Nicole APRN,HAROON - 12/18/2022 10:55 AM EDT Subjective Patient returns for continued issues with her skin States that skin remains itchy - feels like she is being pricked all over - states this happens all over her body - now reporting that it is a prickly feeling Would like to follow up with dermatology Reporting that it can be painful after scratching /10 for pain Denies any new concerns for anxiety or depression Review of Systems Constitutional: Negative for chills and fever. HENT: Negative. Respiratory: Negative for chest tightness and shortness of breath. Cardiovascular: Negative for chest pain. Skin: Itchiness to entire body + feels like she is being pricked Neurological: Negative for dizziness, light-headedness and headaches. Psychiatric/Behavioral: Negative for dysphoric mood. The patient is not nervous/anxious. All other systems reviewed and are negative. Objective Vitals: 12/18/22 1044 BP: 122/88 BP Site: Right Arm BP Position: Sitting BP Cuff Size: Large Adult Pulse: 98 Resp: 16 Temp: 99 F (37.2 C) TempSrc: Forehead SpO2: 100% Weight: 238 lb (108 kg) Height: 5' 4 (1.626 m) Estimated body mass index is 40.85 kg/m as calculated from the following: Height as of this encounter: 5' 4 (1.626 m). Weight as of this encounter: 238 lb (108 kg). Facility age limit for growth %monika is 19 years. Physical Exam Vitals and nursing note reviewed. Constitutional: General: She is not in acute distress. Appearance: Normal appearance. She is not ill-appearing. Cardiovascular: Rate and Rhythm: Normal rate and regular rhythm. Heart sounds: Normal heart sounds. Pulmonary: Effort: Pulmonary effort is normal. Breath sounds: Normal breath sounds. Skin: General: Skin is warm. Comments: No evidence of rash appreciated to body Neurological: Mental Status: She is alert and oriented to person, place, and time. Psychiatric: Mood and Affect: Mood normal. Assessment and Plan 1. Itching - REFERRAL TO DERMATOLOGY - hydrocortisone 1 % cream; Apply topically 2 (two) times daily Dispense: 56 g; Refill: 1 - suspect that patient may be trying to obtain gabapentin documented in this [facility] Work Phone: [phone]) [phone] NoteOrders GC + Chlamydia By Amplified Detection; Status:In Progress - Specimen/Data Collected,Retrospective By Protocol Authorization; Done: 12Dec2022 Trichomonas Vaginalis, Amplified; Status:In Progress - Specimen/Data Collected,Retrospective By Protocol Authorization; Done: 12Dec2022 Hepatitis B Surface Antibody; Status:Canceled - Retrospective Authorization; Hepatitis C Antibody Test; Status:Canceled - Retrospective Authorization; HIV 1/2 ANTIGEN/ANTIBODY SCREEN WITH REFLEX TO CONFIRMATION; Status:Canceled - Retrospective Authorization; SYPHILIS SCREENING WITH REFLEX; Status:Canceled - Retrospective Authorization; VAGINITIS GRAM STAIN FOR BACTERIAL VAGINOSIS + YEAST; Status:In Progress - Specimen/Data Collected,Retrospective By Protocol Authorization; Done: 12Dec2022 Patient Discussion/Summary Testing sent to laboratory patient will be notified and treated appropriately as needed. Most of visit spent in education. Hygiene reviewed. Next Pap smear will be due May 2025. 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 Pain Scale: On a scale of 0 to 10, the patient rates the pain at 5. Please identify location of pain: lower back. Living Will. Living Will: No living will on file. Healthcare POA: No healthcare proxy on file. Type(s) of Tobacco: e-cigarettes Domestic Violence Screen: Does not feel threatened or abused physically, emotionally or sexually. Do you feel UNSAFE? The patient feels safe in the home. Depression/Suicide Screening: During the past 2 weeks, the patient has not felt down, depressed or hopeless. During the past 2 weeks, the patient has not felt little interest or pleasure in doing things. She does not have a risk of suicide. She has not had thoughts of harming others. Nutrition Screening: In the past month, there was not a day when I or anyone in my family went hungry because there was not enough food. Patient Education: The patient denies that they or the person with them has problems with hearing, speaking, seeing, moving around or learning The patient is comfortable filling out medical forms. Food Insecurity: 1. Within the past 12 months, you worried that your food would run out before you got money to buy more: No 2. Within the past 12 months, the food you bought just didn't last and you didn't have money to getmore: No History of Present Illness 27-year-old here today as a new patient Normal Pap smear completed May [address] [facility] Surgical history significant only for removal of wisdom teeth Medical history significant only for asthma. She is here today believing that she has a hormone imbalance along with vaginal discharge and odor. She believes that she has a pH balance problem as well. Her menstrual cycles do come regularly and we discussed the connection between hormones and menstrual cycles. We discussed vaginal hygiene and vaginal care along with normal discharge and what to expect at different times of the menstrual cycle. She does use occasional boric acid suppositories. 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 She knows to return for half-way control if she does get into a relationship. For now she would just use condoms if needed. Review of Systems Constitutional: no fever, no chills, no recent weight gain, no recent weight loss and no fatigue. Eyes: no eye pain, no vision problems and no dryness of the eyes. ENT: no hearing loss, no nosebleeds and no sinus congestion. Cardiovascular: no chest pain, no palpitations and no orthopnea. Respiratory: no shortness of breath, no cough and no wheezing. Gastrointestinal: no abdominal pain, no constipation, no nausea, no diarrhea and no vomiting. Genitourinary: vaginal discharge, but no dysuria, no urinary incontinence, no vaginal dryness, no vaginal itching, no dyspareunia, no pelvic pain, no dysmenorrhea, no sexual problems, no change in urinary frequency, no unexplained vaginal bleeding and no lesion/sore. Musculoskeletal: back pain, but no joint swelling and no leg edema. Integumentary: no rashes, no skin lesions, no nipple discharge, no breast pain and no breast lump. Neurological: no headache, no numbness and no dizziness. Psychiatric: no sleep disturbances, no anxiety and no depression. She denies feeling down, depressed, or hopeless over the past two weeks. She denies feeling little interest or pleasure in doing things over the past two weeks. Endocrine: no hot flashes, no loss of hair and no hirsut (more content not included)... [id number] History of Present illness Narrative* Isidro Nicole APRN,SUGAR SAMPLER - 11/20/2022 8:30 AM EDT Images from the original note were not included. Subjective Patient here for a skin rash to her left forearm States this has been ongoing for over a year - reports this occurs all over her body Denies any new products, lotions or foods - does show a pic that shows an area of inflammation States this flare up started about 2-3 days ago Requesting an epi-pen due to an allergy Review of Systems Constitutional: Negative for chills and fever. HENT: Negative. Respiratory: Negative for chest tightness and shortness of breath. Cardiovascular: Negative for chest pain. Skin: Positive for rash. Neurological: Negative for dizziness, light-headedness and headaches. Psychiatric/Behavioral: Negative for dysphoric mood. The patient is not nervous/anxious. All other systems reviewed and are negative. Objective There were no vitals filed for this visit. Estimated body mass index is 40.17 kg/m as calculated from the following: Height as of 10/22/22: 5' 4 (1.626 m). Weight as of 10/22/22: 234 lb (106.1 kg). No height and weight on file for this encounter. Physical Exam Vitals and nursing note reviewed. Constitutional: General: She is not in acute distress. Appearance: Normal appearance. She is not ill-appearing. Cardiovascular: Rate and Rhythm: Normal rate and regular rhythm. Heart sounds: Normal heart sounds. Pulmonary: Effort: Pulmonary effort is normal. Breath sounds: Normal breath sounds. Skin: Findings: Rash present. Rash is macular. Neurological: Mental Status: She is alert and oriented to person, place, and time. Psychiatric: Mood and Affect: Mood normal. Assessment and Plan 1. Bee allergy status - EPINEPHrine (EPIPEN) 0.3 mg/0.3 mL pen injector; Inject 0.3 mL into the muscle as needed for anaphylaxis Dispense: 1 Each; Refill: 1 2. Skin rash - methylPREDNISolone (MEDROL DOSPAK) 4 mg tablet pack; Take per package directions Dispense: 1 Packet; Refill: 0 [facility] Work Phone: [phone]) [phone] History of Present illness Narrative* Isidro Nicole APRN, CNP - 10/27/2022 10:44 AM EDT Brunilda Mena is a 27 year old female presenting via telephone for lab results. ROS: Constitutional: Denies fever, chills, cold/flu like symptoms Cardiovascular: Denies chest pain and no palpitations Respiratory: Denies shortness of breath, wheezing, dyspnea with exertion and cough Gastrointestinal: no abdominal pain, no vomiting, no constipation and no diarrhea Genitourinary: + resolving PHYSICAL EXAM: Vitals and Physical Exam deferred due to telephone encounter. A/P: Brunilda Mena is a 27 year old female here for lab results via phone. Labs reviewed. All questions answered. Having some vaginal irritation from antibiotic. 1. Antibiotic-induced yeast infection - fluconazole (DIFLUCAN) 150 mg tablet; Take 1 Tablet by mouth once for 1 dose Dispense: 1 Tablet; Refill: 0 Follow up if symptoms worsen. Start time of visit: 1042 End time of visit: 1047 Total time of visit: 5 minutes The consent for telephonic health services was reviewed with the client. The client provided verbalconsent to participate in telephonic services via Method of Communication, Choose One: Telephonic [Telephone only] due to the CDC recommendations regarding safe distancing for communicable diseases. documented in this [facility] Work Phone: [phone]) [phone] History of Present illness Narrative* Isidro Nicole APRN,HAROON - 10/22/2022 3:55 PM EDT Subjective Discomfort with urination + frequency and urgency Believes she is emptying bladder No blood in urine that she can see Symptoms started 2 days ago Denies discharge or odor Review of Systems Constitutional: Negative for chills and fever. HENT: Negative. Respiratory: Negative for chest tightness and shortness of breath. Cardiovascular: Negative for chest pain. Genitourinary: Positive for dysuria, frequency and urgency. Negative for flank pain, hematuria and vaginal discharge. Psychiatric/Behavioral: Negative for dysphoric mood. The patient is not nervous/anxious. All other systems reviewed and are negative. Objective Vitals: 10/22/22 1544 BP: 106/84 BP Site: Right Arm BP Position: Sitting BP Cuff Size: Large Adult Pulse: 91 Temp: 98 F (36.7 C) TempSrc: Forehead SpO2: 99% Weight: 234 lb (106.1 kg) Height: 5' 4 (1.626 m) Estimated body mass index is 40.17 kg/m as calculated from the following: Height as of this encounter: 5' 4 (1.626 m). Weight as of this encounter: 234 lb (106.1 kg). Facility age limit for growth %monika is 19 years. Physical Exam Vitals and nursing note reviewed. Constitutional: General: She is not in acute distress. Appearance: Normal appearance. She is not ill-appearing. Cardiovascular: Rate and Rhythm: Normal rate and regular rhythm. Heart sounds: Normal heart sounds. Pulmonary: Effort: Pulmonary effort is normal. Breath sounds: Normal breath sounds. Genitourinary: Comments: Patient preferred to self swab Neurological: Mental Status: She is alert and oriented to person, place, and time. Psychiatric: Mood and Affect: Mood normal. Assessment and Plan 1. Vaginal discomfort - nitrofurantoin, macrocrystal-monohydrate, (MACROBID) 100 mg capsule; Take 1 Capsule by mouth 2 (two) times daily Dispense: 14 Capsule; Refill: 0 - URINALYSIS, MCKESSON (POCT) - VAGINTIS PLUS, NUSWAB - will provide prophylactic treatment documented in this [facility] Work Phone: [phone]) [phone] History of Present illness Narrative* Isidro Nicole APRN, CNP - 10/06/2022 3:53 PM EDT Brunilda Mena is a 27 year old female presenting via telephone for medication management. Thinks the hydroxyzine and trazodone have her too groggy in the morning. Would like to take hydroxyzine in AM. ROS: Constitutional: Denies fever, chills, cold/flu like symptoms Cardiovascular: Denies chest pain and no palpitations Respiratory: Denies shortness of breath, wheezing, dyspnea with exertion and cough Gastrointestinal: no abdominal pain, no vomiting, no constipation and no diarrhea PHYSICAL EXAM: Vitals and Physical Exam deferred due to telephone encounter. A/P: Brunilda Mena is a 27 year old female here for med managment via phone. We will change hydroxyzine to AM to see if this cuts back on the groggy feeling she has in the mornings. Will follow up at next scheduled appointment to see if this has been working. 1. Anxiety - hydrOXYzine HCL (ATARAX) 25 mg tablet; Take 1 Tablet by mouth daily. for 90 days Dispense: 30 Tablet; Refill: 2 Start time of visit: 1555 End time of visit: 1600 Total time of visit: 5 minutes The consent for telephonic health services was reviewed with the client. The client provided verbalconsent to participate in telephonic services via Method of Communication, Choose One: Telephonic [Telephone only] due to the CDC recommendations regarding safe distancing for communicable diseases. documented in this [facility] Work Phone: [phone] History of Present illness Narrative* Isidro Nicole APRN, CNP - 09/25/2022 11:45 AM EDT Brunilda Mena is a 27 year old female presenting via telephone for lab results. ROS: Constitutional: Denies fever, chills, cold/flu like symptoms Cardiovascular: Denies chest pain and no palpitations Respiratory: Denies shortness of breath, wheezing, dyspnea with exertion and cough Gastrointestinal: no abdominal pain, no vomiting, no constipation and no diarrhea Genitourinary: no incontinence Musculoskeletal: no joint swelling PHYSICAL EXAM: Vitals and Physical Exam deferred due to telephone encounter. A/P: Brunilda eMna is a 27 year old female here for lab results via phone. Labs reviewed. All questions answered. Patient encouraged to continue to work on diet and exercise,increase water intake. Exercise to include 30 minutes at minimum for 3-5 days per week. Start time of visit: 1145 End time of visit: 1151 Total time of visit: 6 minutes The consent for telephonic health services was reviewed with the client. The client provided verbalconsent to participate in telephonic services via Method of Communication, Choose One: Telephonic [Telephone only] due to the CDC recommendations regarding safe distancing for communicable diseases. documented in this [facility] Work Phone: [phone] History of Present illness Narrative* Otto Higuera - 09/22/2022 8:35 AM EDT Guardianship: No Do you have a Legal Power of Bull Fiddle Player: No Do you have a Medical Power of Bull Fiddle Player: No Living Will: No Pyschiatirc Advanced Directive: No Sources of information used for assessment Client: [x] Treatment provider: [] Family or Significant Other: [] Medical Records: [] Other: [] Referral Source: Self Start Time: 8:20 am End Time: 9:05 am Location: [facility] Presenting Problem: I have a history of depression and anxiety related issues. History of Homelessness/Current Living Situation Where are you staying currently? [facility] How long have you been in your current living situation? One month Who else is living with you right now? [facility] How was your last permanent housing lost? Na Have you ever been evicted? No If applicable, what factors have contributed to any periods of homelessness? Na Family History Do you have any contact with your family? yes How would you describe your relationship with them? Good Number of Children: 2 Custody of Children? no - DCFS Involvement? No Overview of Family History/Siblings/Childhood: Born and raised in [facility] . Raised by both parents. Youngest of three siblings. Patient described her childhood as dysfunctional. Family Conflict: no Friendships/Romantic Relationships/Social Supports/Leisure Activities Do you have people you consider close friends? Yes If yes, who are they? Childhood Are you involved in a romantic relationship? No What is your marital status? single How do you spend your free time? Na Are there activities you used to do but don't do anymore? No If yes, please describe: Na Education, Employment and Information What is the highest level you completed in school? an eighth grade education History of learning disabilities? No If yes, learning disability/type: Na If yes, developmental delays: Na If yes, special school placement:/IEP: no Barriers to learning (i.e. inability to read or write): Na Special communication needsTDD/TTY (Device, curriculum designer, assistive listening devices,language interpretation, other)? no no experience unemployed If unemployed, are you interested in employment? Yes What's kept you from pursuing employment? [place] What is your monthly income from wages or entitlements? 0 Legal History Have you had trouble with the law/been arrested? No If yes, please describe: Na Have you ever been incarcerated? No If yes, please describe type of charge (probe for violent and sexual crimes): Na If yes, please list dates of crimes: Na Current legal status: Awaiting charges: No On probation:/parole no Name and contact information for PO: Na Conditional release: No Other (please specify): Na Spirituality/Ethnic and Cultural Influences What are your cultural, oriental orthodox or spiritual beliefs? I believe in God. Are you involved in a oriental orthodox or spiritual group (i.e. jewish, restorationism, etc.)? Na Did you used to belong to a oriental orthodox group that you no longer participate in? Na What is important for us to know about your cultural and oriental orthodox/spiritual orientation? Na Psychiatric Ilness History From patient self report: Do you think you have a mental illness? Yes If yes, what is it called? Depression and anxiety What are some of the symptoms? Sad What have you noticed make your symptoms better? AOD What have you noticed make your symptoms worse? AOD Do you have any outpatient mental health treatment presently? No Have you had any mental health treatment in the past? no Have you ever been hospitalized for your mental health? No If yes, where, when and how long was your stay? Na History of suicide attempts/plans/adverse events: Na Lethality Assessment: Current suicidal ideas: No Current suicidal intent: No Current suicidal plan and means: No Current homicidal ideas: No Current homicidal intent: No Current homicidal plan and means: No Please describe any suicide attempts or self-injurious behavior and violent behavior towards others(include lethality, circumstances surrounding events and dates): Na Firearms at home? no Old medications as home? yes Substance abuse history? yes Current depression/anxiety? no Social support? no The risk for harming himself (and other people) is considered: Na Current Symptoms: Depression Symptoms: see PHQ, anxiety, decreased appetite, depressed mood, difficulty concentrating, excessive alcohol consumption, fatigue, feelings of worthlessness/guilt, hopelessness, and illegaldrug use. Other Thought Problems: Obsessions: [] Guilt: [] Phobias: [] Preoccupation: [] Ideas of Reference: [] Guarded: [] Thought Processes: Logical: [] Loose associations: [] [place] thinking: [] Circumstantiality: [] Racing thoughts: [] Blocked thoughts: [] Tangential: [] Incoherent: [] Flight of ideas: [] Sexual History Are your sexually active? No When you are sexually active, do you use protection? No Sexual Orientation: Heterosexual Gender: Female Gender Expression: Feminist Age became sexually active: 15 Trauma Assessment (ask patient if s/he is comfortable answering questions about trauma) Are there any experiences in your life that were very stressful? Yes If yes, please describe: Patient reported she is not comfortable at this time discussing trauma related issues If yes, are you currently experiencing anxiety, nightmares or flashbacks related to the traumatic experiences in your past? Yes If yes, have you tried hard not to think about it or went out of your way to avoid situations that reminded you of it? Yes If yes, are you constantly on guard, watchful or easily startled? Yes If yes, do you feel numb, detached from those around you and/or your surroundings? Yes If yes, have you sought treatment or spoken with a counselor regarding these issues? No Substance Abuse History Substance Age at first use Peak use Frequency at peak use Amount at peak use Frequency past 6 months Amount past 6 months Last time used Tobacco Caffeine Alcohol 14 2-3 beers 2 shots Daily 2-3 beers 2 shots daily Daily 2-3 beers 2 shots daily August 22 2022 Powder Cocaine Crack Cocaine Opiates Heroin Hallucinogens PCP, Wet Amphetamines 23 $20 2-3 xs wek $20 2-3 xs weekly $20 August 22 2022 Rx Drugs OTC Drugs Inhalants Cannabis 14 $10 Daily $10 daily 410 August 22 2022 Family/significant other AOD use (past and present): No If patient is currently sober, what is their sobriety date? August 22 2022 Are they involved in 12-step meetings? Yes Sponsor and home group information: No For the following section, please list primary drug used first and others secondary Name of Drug Cannabis [x] Tolerance [] Larger Amounts/Longer Period [] Unsuccessful Efforts to Stop [] Great Deal of Time Spent [] Important Activities Reduced [] Use Despite Physical/Psych Impairment [] Failure to fulfill role obligation [] Physically hazardous situations [] Recurrent legal related problems [] Social/interpersonal problems Amphetamines [x] Tolerance [x] Larger Amounts/Longer Period [x] Unsuccessful Efforts to Stop [x] Great Deal of Time Spent [x] Important Activities Reduced [x] Use Despite Physical/Psych Impairment [x] Failure to fulfill role obligation [x] Physically hazardous situations [x] Recurrent legal related problems [x] Social/interpersonal problems Alcohol [x] Tolerance [x] Larger Amounts/Longer Period [x] Unsuccessful Efforts to Stop [x] Great Deal of Time Spent [x] Important Activities Reduced [x] Use Despite Physical/Psych Impairment [x] Failure to fulfill role obligation [x] Physically hazardous situations [x] Recurrent legal related problems [x] Social/interpersonal problems [] Tolerance [] Larger Amounts/Longer Period [] Unsuccessful Efforts to Stop [] Great Deal of Time Spent [] Important Activities Reduced [] Use Despite Physical/Psych Impairment [] Failure to fulfill role obligation [] Physically hazardous situations [] Recurrent legal related problems [] Social/interpersonal problems [] Tolerance [] Larger Amounts/Longer Period [] Unsuccessful Efforts to Stop [] Great Deal of Time Spent [] Important Activities Reduced [] Use Despite Physical/Psych Impairment [] Failure to fulfill role obligation [] Physically hazardous situations [] Recurrent legal related problems [] Social/interpersonal problems AOD Treatment Episodes (outpatient, IOP, inpatient or detox): Not applicable Location Date Type Length of Stay Reason Entered (By Choice, Court Order) Type of D/C Length of Sobriety Upon Discharge [facility] Current []Successful [] Unsuccessful [place] 28 days IP 28 DAY []Successful [] Unsuccessful []Successful [] Unsuccessful []Successful [] Unsuccessful Other addictive behaviors present? Patient denied Gambling: [] Sex: [] Internet: [] Shopping: [] Other: [] Tell me about your strengths and goals: Good mother and outgoing Do you struggle in any of the following areas? (please provide evidence of): Patient denied Nutritional/Eating Pattern Changes/Disorders: [] Pain management: [] Bereavement issues: [] Anger/aggression: [] Oppositional behaviors: [] Inattention: [] Impulsivity: [] Mood swings/hyperactivity: [] Sleep problems: [] Mental Status Exam: Posture, behavior, mood and affect all within normal limits., Orientation, judgement, insight, and memory all within normal limit., Attention, concentration, and thought content all within normal limits., Mood: Depressed., Thought content: Hopelessness., Orientation: Alert., Judgement: Insight is fair. Treatment Recommendations/Assessed Needs: Patient would benefit from supportive counseling and medication management Further Evaluations Needed (visual, auditory, nutritional, psychiatric, psychological, neurological, medical, educational, etc.) Please Specify: Yes (Psychiatric) Patient or significant others agree with assessment and recommendations? Yes Narrative Summary of Assessment: Patient is a 27 year old single female. Patient reportedher childhood as Dysfunctional. Patient born and raised in [facility]. Patient reported a history of trauma related issues. Patient stated I do not feel comfortable with discussing family of origin issues or trauma related issues at this time. Patient is currently residing at [facility]. Patient reported a history of substance abuse related issues. Patient denied any past and/or present suicidal and/or homicidal ideation. Patient denied any past and/or present auditory and/or visionary hallucination. Patient oriented 3xs. Patient is seeking supportive counseling and medicationmanagement. Diagnostic Impression: Patient meets the criteria for Unspecified Mood Disorder (F39) due to reports of depressed mood for mor than 1/2 days, patient reports also reports inability to sleep and sadness on a daily basis. Patient mets the criteria for unspecified other substance abuse-related disorder (F19.99). Patient reported symptoms of PTSD, patient reported she is hypervigilant and has distressing dreams and flashback of her trauma events. Individual Service Plan 09/22/2022 [facility] Care Plan/Goals: Medication as prescribed Treatment Adherence Plan/Goals: Identify and reduce avoidance behaviors contributing negatively to mood Identify, implement and maintain healthy personal boundaries Identify and decrease cognitive distortions contributing negatively to mood and behavior Patient Strengths: Social support Community connection Mental Health Plan/Goals supportive counseling Substance Use Plan/Goals Continues at [facility] Transportation Plan/Goals Na Care Coordination/Support Needs Plan/Goals counselor will remain available for case consultation The patient was advised in the event of a psychiatric emergency, they should use one or more of thefollowing resources: Contact Care [facility] Team during office hours Call Proceed to nearest Emergency Room Call Mobile Crisis - [phone]([facility]). [facility] Work Phone: [phone] History of Present illness Narrative* Otto Higuera - 09/22/2022 8:35 AM EDT Guardianship: No Do you have a Legal Power of Bull Fiddle Player: No Do you have a Medical Power of Bull Fiddle Player: No Living Will: No Pyschiatirc Advanced Directive: No Sources of information used for assessment Client: [x] Treatment provider: [] Family or Significant Other: [] Medical Records: [] Other: [] Referral Source: Self Start Time: 8:20 am End Time: 9:05 am Location: [facility] Presenting Problem: I have a history of depression and anxiety related issues. History of Homelessness/Current Living Situation Where are you staying currently? [facility] How long have you been in your current living situation? One month Who else is living with you right now? [facility] How was your last permanent housing lost? Na Have you ever been evicted? No If applicable, what factors have contributed to any periods of homelessness? Na Family History Do you have any contact with your family? yes How would you describe your relationship with them? Good Number of Children: 2 Custody of Children? no - DCFS Involvement? No Overview of Family History/Siblings/Childhood: Born and raised in [facility] . Raised by both parents. Youngest of three siblings. Patient described her childhood as dysfunctional. Family Conflict: no Friendships/Romantic Relationships/Social Supports/Leisure Activities Do you have people you consider close friends? Yes If yes, who are they? Childhood Are you involved in a romantic relationship? No What is your marital status? single How do you spend your free time? Na Are there activities you used to do but don't do anymore? No If yes, please describe: Na Education, Employment and Information What is the highest level you completed in school? an eighth grade education History of learning disabilities? No If yes, learning disability/type: Na If yes, developmental delays: Na If yes, special school placement:/IEP: no Barriers to learning (i.e. inability to read or write): Na Special communication needsTDD/TTY (Device, curriculum designer, assistive listening devices,language interpretation, other)? no no experience unemployed If unemployed, are you interested in employment? Yes What's kept you from pursuing employment? [place]OD/[place] What is your monthly income from wages or entitlements? 0 Legal History Have you had trouble with the law/been arrested? No If yes, please describe: Na Have you ever been incarcerated? No If yes, please describe type of charge (probe for violent and sexual crimes): Na If yes, please list dates of crimes: Na Current legal status: Awaiting charges: No On probation:/parole no Name and contact information for PO: Na Conditional release: No Other (please specify): Na Spirituality/Ethnic and Cultural Influences What are your cultural, oriental orthodox or spiritual beliefs? I believe in God. Are you involved in a oriental orthodox or spiritual group (i.e. jewish, restorationism, etc.)? Na Did you used to belong to a oriental orthodox group that you no longer participate in? Na What is important for us to know about your cultural and oriental orthodox/spiritual orientation? Na Psychiatric Ilness History From patient self report: Do you think you have a mental illness? Yes If yes, what is it called? Depression and anxiety What are some of the symptoms? Sad What have you noticed make your symptoms better? AOD What have you noticed make your symptoms worse? AOD Do you have any outpatient mental health treatment presently? No Have you had any mental health treatment in the past? no Have you ever been hospitalized for your mental health? No If yes, where, when and how long was your stay? Na History of suicide attempts/plans/adverse events: Na Lethality Assessment: Current suicidal ideas: No Current suicidal intent: No Current suicidal plan and means: No Current homicidal ideas: No Current homicidal intent: No Current homicidal plan and means: No Please describe any suicide attempts or self-injurious behavior and violent behavior towards others(include lethality, circumstances surrounding events and dates): Na Firearms at home? no Old medications as home? yes Substance abuse history? yes Current depression/anxiety? no Social support? no The risk for harming himself (and other people) is considered: Na Current Symptoms: Depression Symptoms: see PHQ, anxiety, decreased appetite, depressed mood, difficulty concentrating, excessive alcohol consumption, fatigue, feelings of worthlessness/guilt, hopelessness, and illegaldrug use. Other Thought Problems: Obsessions: [] Guilt: [] Phobias: [] Preoccupation: [] Ideas of Reference: [] Guarded: [] Thought Processes: Logical: [] Loose associations: [] [place] thinking: [] Circumstantiality: [] Racing thoughts: [] Blocked thoughts: [] Tangential: [] Incoherent: [] Flight of ideas: [] Sexual History Are your sexually active? No When you are sexually active, do you use protection? No Sexual Orientation: Heterosexual Gender: Female Gender Expression: Feminist Age became sexually active: 15 Trauma Assessment (ask patient if s/he is comfortable answering questions about trauma) Are there any experiences in your life that were very stressful? Yes If yes, please describe: Patient reported she is not comfortable at this time discussing trauma related issues If yes, are you currently experiencing anxiety, nightmares or flashbacks related to the traumatic experiences in your past? Yes If yes, have you tried hard not to think about it or went out of your way to avoid situations that reminded you of it? Yes If yes, are you constantly on guard, watchful or easily startled? Yes If yes, do you feel numb, detached from those around you and/or your surroundings? Yes If yes, have you sought treatment or spoken with a counselor regarding these issues? No Substance Abuse History Substance Age at first use Peak use Frequency at peak use Amount at peak use Frequency past 6 months Amount past 6 months Last time used Tobacco Caffeine Alcohol 14 2-3 beers 2 shots Daily 2-3 beers 2 shots daily Daily 2-3 beers 2 shots daily August 22 2022 Powder Cocaine Crack Cocaine Opiates Heroin Hallucinogens PCP, Wet Amphetamines 23 $20 2-3 xs wek $20 2-3 xs weekly $20 August 22 2022 Rx Drugs OTC Drugs Inhalants Cannabis 14 $10 Daily $10 daily 410 August 22 2022 Family/significant other AOD use (past and present): No If patient is currently sober, what is their sobriety date? August 22 2022 Are they involved in 12-step meetings? Yes Sponsor and home group information: No For the following section, please list primary drug used first and others secondary Name of Drug Cannabis [x] Tolerance [] Larger Amounts/Longer Period [] Unsuccessful Efforts to Stop [] Great Deal of Time Spent [] Important Activities Reduced [] Use Despite Physical/Psych Impairment [] Failure to fulfill role obligation [] Physically hazardous situations [] Recurrent legal related problems [] Social/interpersonal problems Amphetamines [x] Tolerance [x] Larger Amounts/Longer Period [x] Unsuccessful Efforts to Stop [x] Great Deal of Time Spent [x] Important Activities Reduced [x] Use Despite Physical/Psych Impairment [x] Failure to fulfill role obligation [x] Physically hazardous situations [x] Recurrent legal related problems [x] Social/interpersonal problems Alcohol [x] Tolerance [x] Larger Amounts/Longer Period [x] Unsuccessful Efforts to Stop [x] Great Deal of Time Spent [x] Important Activities Reduced [x] Use Despite Physical/Psych Impairment [x] Failure to fulfill role obligation [x] Physically hazardous situations [x] Recurrent legal related problems [x] Social/interpersonal problems [] Tolerance [] Larger Amounts/Longer Period [] Unsuccessful Efforts to Stop [] Great Deal of Time Spent [] Important Activities Reduced [] Use Despite Physical/Psych Impairment [] Failure to fulfill role obligation [] Physically hazardous situations [] Recurrent legal related problems [] Social/interpersonal problems [] Tolerance [] Larger Amounts/Longer Period [] Unsuccessful Efforts to Stop [] Great Deal of Time Spent [] Important Activities Reduced [] Use Despite Physical/Psych Impairment [] Failure to fulfill role obligation [] Physically hazardous situations [] Recurrent legal related problems [] Social/interpersonal problems AOD Treatment Episodes (outpatient, IOP, inpatient or detox): Not applicable Location Date Type Length of Stay Reason Entered (By Choice, Court Order) Type of D/C Length of Sobriety Upon Discharge [facility] Current []Successful [] Unsuccessful [place] 28 days IP 28 DAY []Successful [] Unsuccessful []Successful [] Unsuccessful []Successful [] Unsuccessful Other addictive behaviors present? Patient denied Gambling: [] Sex: [] Internet: [] Shopping: [] Other: [] Tell me about your strengths and goals: Good mother and outgoing Do you struggle in any of the following areas? (please provide evidence of): Patient denied Nutritional/Eating Pattern Changes/Disorders: [] Pain management: [] Bereavement issues: [] Anger/aggression: [] Oppositional behaviors: [] Inattention: [] Impulsivity: [] Mood swings/hyperactivity: [] Sleep problems: [] Mental Status Exam: Posture, behavior, mood and affect all within normal limits., Orientation, judgement, insight, and memory all within normal limit., Attention, concentration, and thought content all within normal limits., Mood: Depressed., Thought content: Hopelessness., Orientation: Alert., Judgement: Insight is fair. Treatment Recommendations/Assessed Needs: Patient would benefit from supportive counseling and medication management Further Evaluations Needed (visual, auditory, nutritional, psychiatric, psychological, neurological, medical, educational, etc.) Please Specify: Yes (Psychiatric) Patient or significant others agree with assessment and recommendations? Yes Narrative Summary of Assessment: Patient is a 27 year old single female. Patient reportedher childhood as Dysfunctional. Patient born and raised in [facility]. Patient reported a history of trauma related issues. Patient stated I do not feel comfortable with discussing family of origin issues or trauma related issues at this time. Patient is currently residing at [facility]. Patient reported a history of substance abuse related issues. Patient denied any past and/or present suicidal and/or homicidal ideation. Patient denied any past and/or present auditory and/or visionary hallucination. Patient oriented 3xs. Patient is seeking supportive counseling and medicationmanagement. Diagnostic Impression: Patient meets the criteria for Unspecified Mood Disorder (F39) due to reports of depressed mood for mor than 1/2 days, patient reports also reports inability to sleep and sadness on a daily basis. Patient mets the criteria for unspecified other substance abuse-related disorder (F19.99). Patient reported symptoms of PTSD, patient reported she is hypervigilant and has distressing dreams and flashback of her trauma events. Individual Service Plan 09/22/2022 [facility] Care Plan/Goals: Medication as prescribed Treatment Adherence Plan/Goals: Identify and reduce avoidance behaviors contributing negatively to mood Identify, implement and maintain healthy personal boundaries Identify and decrease cognitive distortions contributing negatively to mood and behavior Patient Strengths: Social support Community connection Mental Health Plan/Goals supportive counseling Substance Use Plan/Goals Continues at [facility] Transportation Plan/Goals Na Care Coordination/Support Needs Plan/Goals counselor will remain available for case consultation The patient was advised in the event of a psychiatric emergency, they should use one or more of thefollowing resources: Contact Care [facility] Team during office hours Call Proceed to nearest Emergency Room Call Mobile Crisis - [phone]([facility]). [facility] Work Phone: [phone] 170-216903-30-2023 History of Present illness Narrative* Isidro Nicole APRN,SUGAR SAMPLER - 09/18/2022 12:17 PM EDT Subjective New to [facility]- blood work completed there Has continued to have issues with Sleep anxiety and depression - does not think the trazodone has been enough - would like to go back on wellbutrin - felt stable on this and it helped her stay focused Vaginal odor- had taken an antibiotic recently due to BV Given diflucan but still has a discharge and the odor - requesting another dose Review of Systems Constitutional: Negative for chills and fever. HENT: Negative. Respiratory: Negative for chest tightness and shortness of breath. Cardiovascular: Negative for chest pain. Neurological: Negative for dizziness, light-headedness and headaches. Psychiatric/Behavioral: Positive for decreased concentration, dysphoric mood and sleep disturbance.Negative for self-injury and suicidal ideas. The patient is nervous/anxious. All other systems reviewed and are negative. Objective Vitals: 09/18/22 1202 BP: 113/79 BP Site: Left Arm BP Position: Sitting BP Cuff Size: Large Adult Pulse: 92 Resp: 16 Temp: 98 F (36.7 C) TempSrc: Forehead Weight: 233 lb 6.4 oz (105.9 kg) Height: 5' 4 (1.626 m) Estimated body mass index is 40.06 kg/m as calculated from the following: Height as of this encounter: 5' 4 (1.626 m). Weight as of this encounter: 233 lb 6.4 oz (105.9 kg). Facility age limit for growth %monika is 19 years. Physical Exam Vitals and nursing note reviewed. Constitutional: General: She is not in acute distress. Appearance: Normal appearance. She is not ill-appearing. HENT: Head: Normocephalic. Right Ear: External ear normal. Left Ear: External ear normal. Nose: Nose normal. Mouth/Throat: Mouth: Mucous membranes are moist. Eyes: Conjunctiva/sclera: Conjunctivae normal. Pupils: Pupils are equal, round, and reactive to light. Cardiovascular: Rate and Rhythm: Normal rate and regular rhythm. Heart sounds: Normal heart sounds. Pulmonary: Effort: Pulmonary effort is normal. Breath sounds: Normal breath sounds. Musculoskeletal: General: Normal range of motion. Skin: General: Skin is warm. Neurological: Mental Status: She is alert and oriented to person, place, and time. Psychiatric: Mood and Affect: Mood normal. Assessment and Plan 1. Vaginal odor - CHLAMYDIA/GONORRHOEAE LILIANE URINE/SWAB - VAGINTIS PLUS, NUSWAB - URINALYSIS, MCKESSON (POCT) 2. Anxiety - hydrOXYzine HCL (ATARAX) 25 mg tablet; Take 1 Tablet by mouth nightly at bedtime as needed for anxiety for up to 90 days Dispense: 30 Tablet; Refill: 2 3. Recurrent major depressive disorder, in partial remission (HCC-CMS) - buPROPion XL (WELLBUTRIN XL) 150 mg 24 hr tablet; Take 1 Tablet by mouth every morning for 30 days Dispense: 30 Tablet; Refill: 0 4. Psychophysiologic insomnia - melatonin 3 mg tablet; Take 1 Tablet by mouth nightly at bedtime as needed for sleep for up to 90days Dispense: 30 Tablet; Refill: 2 [facility] Work Phone: 1(144) 520-548103-02-[address] Godfrey [facility] August 21, 2022 6:06pm Note Date/Time August 21, 2022 6:06 pm [facility] Medical Records Department [address] [place] [address] Progress Note - Hospitalist 08/21/22 180 MR#: [id number] Acct: [id number] Name: ANDREW MENA Rep #:[id number] : 1995 27 From: Emily Godfrey MD PCP: Dr. Nanci Corral MD Status:A DM IN Location: [place] [address] Reason for Visit Reason for Visit: Diagnoses Morbid (severe) obesity due to excess calories (08/18/22) Obesity, unspecified (08/18/22) Alcohol dependence, uncomplicated (08/18/22) Alcohol use, unspecified with withdrawal, unspecified (08/18/22) Cannabis use, unspecified, uncomplicated (08/18/22) Other stimulant abuse, uncomplicated (08/18/22) Subjective Subjective Resting comfortably, had no complaints Objective Data Objective Data Vital Signs: Vital Signs Temp Pulse Resp BP Pulse Ox O2 Del Method 98.2 F 77 16 86/52 L 97 Room Air 08/21/22 14:36 08/21/22 14:36 08/21/22 14:36 08/21/22 14:36 08/21/22 14:36 08/21/22 14:36 Oxygen Delivery Method Room Air Weight: 105.5 kg Body Mass Index (BMI) 18.1 Intake & Output: Intake and Output for Last 24 Hours 08/19/22 08/20/22 08/21/22 23:59 23:59 23:59 Intake Total 1928.75 / 2328.75 800 / 800 Output Total 200 / 200 Balance 1728.75 / 2128.75 800 / 800 Lab / Micro Data Result Diagrams: 08/20/22 06:35 08/20/22 06:35 Physical Exam Narrative General: Alert, oriented, no apparent distress HEENT: Atraumatic, normocephalic Eyes: extraocular movements grossly intact Neck: Supple Respiratory: normal respiratory effort Cardiovascular: no edema appreciated GI: nondistended Extremities: Moving all extremities Neuro: No overt focal neurological deficits Psych: Cooperative Assessment & Plan Assessment/Plan (1) Alcohol withdrawal: (2) Desire for detoxification: (3) Alcohol dependence: (4) Obesity (BMI 30-39.9): (5) Morbid obesity: (6) Methamphetamine use: (7) Cannabis use disorder: PLAN: Plan #Alcohol dependence and desire for detoxification Patient with elevated blood pressure, and tachycardia on presentation Alcohol level on presentation was less than 3. Review of previous labs showed that patient was positive for cannabinoids and methamphetamine. Patient be started on phenobarbital and other adjunctive medications: Gabapentinas needed; dicyclomine as needed; Vistaril as needed; Imodium as needed; trazodone as needed; Zofran as needed; scheduled thiamine; and schedule folic acid. Monitor CIWA score -08/19: Continue phenobarbital taper, patient unsure if she wants inpatient versus outpatient after detox, will continue discussion as taper continues -08/20: Continue taper and supportive care -08/21: Continue taper and supportive care. Did have a blood pressure that was slightly low, is possible it is the phenobarbital but will give fluid and we will check a.m. labs, not tachycardic and not febrile, did not have any specificcomplaints during evaluation #Tobacco abuse Counseled Nicotine patch prescribed. #Methamphetamine abuse Counseled #Marijuana abuse Counseled #Acute on chronic leukocytosis White count on presentation was 17,500. Acute phase likely reactive. Trend. -08/19: Improving, no signs or symptoms of infection #Obesity: BMI: 39.9 kg/m?. Complicates care. Lifestyle modification recommended. #Mild hypokalemia Clinical monitoring -08/19: Replaced #EVANS Creatinine on presentation was 1.15. Baseline creatinine is around 0.82. Gentle IV fluids ordered. Trend BMP -08/19: We will recheck labs in a.m. -08/20: Improved, encourage p.o. #DVT prophylaxis Low risk Encourage to ambulate Charges/Coding Visit Charges Inpatient E&M: 31376 Subs Hosp L2 08/21/22 4889 <Electronically signed by Emily Godfrey MD> Cosigner Signature (if applicable): CC: ~ Signed [facility] Work Phone: 1(511) 586-381703-01-[address] Godfrey [facility] August 20, 2022 8:15am Note Date/Time August 20, 2022 8:15 am [facility] Medical Records Department [address] [place] [address] Progress Note - Hospitalist 08/20/22 0811 MR#: [id number] Acct: [id number] Name: ANDREW MENA Rep #:[id number] : 1995 27 From: Emily Godfrey MD PCP: Dr. Nanci Corral MD Status:A DM IN Location: [facility] [id number] Reason for Visit Reason for Visit: Diagnoses Morbid (severe) obesity due to excess calories (08/18/22) Obesity, unspecified (08/18/22) Alcohol dependence, uncomplicated (08/18/22) Alcohol use, unspecified with withdrawal, unspecified (08/18/22) Cannabis use, unspecified, uncomplicated (08/18/22) Other stimulant abuse, uncomplicated (08/18/22) Subjective Subjective Has a headache today and feels generally not particularly well and has been having some muscle cramps, additionally has not moved her bowels Objective Data Objective Data Vital Signs: Vital Signs Temp Pulse Resp BP Pulse Ox O2 Del Method 97.6 F L 92 18 93/60 96 Room Air 08/20/22 03:00 08/20/22 03:00 08/20/22 03:00 08/20/22 03:00 08/20/22 03:00 08/20/22 03:00 Oxygen Delivery Method Room Air Weight: 105.5 kg Body Mass Index (BMI) 18.1 Intake & Output: Intake and Output for Last 24 Hours 08/18/22 08/19/22 08/20/22 23:59 23:59 23:59 Intake Total 1000 / 1000 1928.75 / 2328.75 800 / 800 Output Total 200 / 200 Balance 1000 / 1000 1728.75 / 2128.75 800 / 800 Lab / Micro Data Result Diagrams: 08/20/22 06:35 08/20/22 06:35 Labs: Laboratory Results - last 24 hr 08/19/22 08:05: Chlam trachomat DNA PCR Negative, N.gonorrhoeae DNA (PCR) Negative 08/20/22 06:35: WBC 6.6, RBC 4.50, Hgb 12.9, Hct 41.2, MCV 91.6, MCH 28.7, MCHC 31.3 L, RDW Std Deviation 45.6 H, RDW Coeff of Jose 13.4, Plt Count 297, MPV 10.6, Immature Gran % (Auto) 0.500, Neut % (Auto) 49.1, Lymph % (Auto) 35.9, Brewster % (Auto) 8.9, Eos % (Auto) 4.8, Baso % (Auto) 0.8, Absolute Neuts (auto) 3.3, Absolute Lymphs (auto) 2.38, Nucleated RBC % 0 08/20/22 06:35: Sodium 139, Potassium 4.0, Chloride 108 H, Carbon Dioxide 28.0, Anion Gap 3 L, BUN 12, Creatinine 0.80, Estim Creat Clear Calc 90.41, Est GFR (MDRD) Af Amer 110, Est GFR (MDRD) Non-Af 91, BUN/Creatinine Ratio 15.1, [id number], Calcium 8.9, Total Bilirubin 0.50, AST 20, ALT 27, Alkaline Phosphatase 63, Total Protein 6.5, Albumin 3.4, Globulin 3.1, Albumin/Globulin Ratio 1.1 Physical Exam Narrative General: Alert, oriented, no apparent distress HEENT: Atraumatic, normocephalic Eyes: extraocular movements grossly intact Neck: Supple Respiratory: normal respiratory effort Cardiovascular: no edema appreciated GI: nondistended Extremities: Moving all extremities Neuro: No overt focal neurological deficits Psych: Cooperative Assessment & Plan Assessment/Plan (1) Alcohol withdrawal: (2) Desire for detoxification: (3) Alcohol dependence: (4) Obesity (BMI 30-39.9): (5) Morbid obesity: (6) Methamphetamine use: (7) Cannabis use disorder: PLAN: Plan #Alcohol dependence and desire for detoxification Patient with elevated blood pressure, and tachycardia on presentation Alcohol level on presentation was less than 3. Review of previous labs showed that patient was positive for cannabinoids and methamphetamine. Patient be started on phenobarbital and other adjunctive medications: Gabapentinas needed; dicyclomine as needed; Vistaril as needed; Imodium as needed; trazodone as needed; Zofran as needed; scheduled thiamine; and schedule folic acid. Monitor CIWA score -08/19: Continue phenobarbital taper, patient unsure if she wants inpatient versus outpatient after detox, will continue discussion as taper continues -08/20: Continue taper and supportive care #Tobacco abuse Counseled Nicotine patch prescribed. #Methamphetamine abuse Counseled #Marijuana abuse Counseled #Acute on chronic leukocytosis White count on presentation was 17,500. Acute phase likely reactive. Trend. -08/19: Improving, no signs or symptoms of infection #Obesity: BMI: 39.9 kg/m?. Complicates care. Lifestyle modification recommended. #Mild hypokalemia Clinical monitoring -08/19: Replaced #EVANS Creatinine on presentation was 1.15. Baseline creatinine is around 0.82. Gentle IV fluids ordered. Trend BMP -08/19: We will recheck labs in a.m. -08/20: Improved, encourage p.o. #DVT prophylaxis Low risk Encourage to ambulate Charges/Coding Visit Charges Inpatient E&M: 71168 Subs Hosp L2 08/20/22 0815 <Electronically signed by Emiyl Godfrey MD> Cosigner Signature (if applicable): CC: ~ Signed [facility] Work Phone: 1(195) 670-223302-28-[address] Godfrey [facility] August 19, 2022 5:28pm Note Date/Time August 19, 2022 12:29pm [facility] Medical Records Department [address] [place] [address] Progress Note - Hospitalist 08/19/22 1229 MR#: [id number] Acct: [id number] Name: ANDREW MENA Rep #:[id number] : 1995 27 From: Emily Godfrey MD PCP: Dr. Nanci Corral MD Status:A DM IN Location: [facility] [id number] Reason for Visit Reason for Visit: Diagnoses Morbid (severe) obesity due to excess calories (08/18/22) Obesity, unspecified (08/18/22) Alcohol dependence, uncomplicated (08/18/22) Alcohol use, unspecified with withdrawal, unspecified (08/18/22) Cannabis use, unspecified, uncomplicated (08/18/22) Other stimulant abuse, uncomplicated (08/18/22) Subjective Subjective Reports feeling generally unwell, poor appetite, feels slightly shaky, received a phenobarbital and feels she is tolerating it Objective Data Objective Data Vital Signs: Vital Signs Temp Pulse Resp BP Pulse Ox O2 Del Method 98.3 F 113 H 18 119/93 H 100 Room Air 08/19/22 10:00 08/19/22 10:00 08/19/22 10:00 08/19/22 10:00 08/19/22 10:00 08/19/22 10:00 Oxygen Delivery Method Room Air Weight: 105.5 kg Body Mass Index (BMI) 18.1 Intake & Output: Intake and Output for Last 24 Hours 08/17/22 08/18/22 08/19/22 23:59 23:59 23:59 Intake Total 1000 / 1000 1482.5 / 1482.5 Output Total 200 / 200 Balance 1000 / 1000 1282.5 / 1282.5 Lab / Micro Data Result Diagrams: 08/19/22 06:08 08/18/22 20:29 Labs: Laboratory Results - last 24 hr 08/18/22 20:29: WBC 17.5 H, RBC 4.98, Hgb 14.1, Hct 44.7, MCV 89.8, MCH 28.3, MCHC 31.5 L, RDW Std Deviation 45.5 H, RDW Coeff of Jose 13.9, Plt Count 489 H, MPV 10.7, Immature Gran % (Auto) 0.400, Neut % (Auto) 77.2 H, Lymph % (Auto) 15.9 L, Brewster % (Auto) 6.1, Eos % (Auto) 0.1, Baso % (Auto) 0.3, Absolute Neuts (auto) 13.5 H, Absolute Lymphs (auto) 2.78, Nucleated RBC % 0 08/18/22 20:29: Sodium 140, Potassium 3.4 L, Chloride 106, Carbon Dioxide 24.0, Anion Gap 10, BUN 16, Creatinine 1.15 H, Estim Creat Clear Calc 62.89, Est GFR (MDRD) Af Amer 72, Est GFR (MDRD) Non-Af 60, BUN/Creatinine Ratio 13.9, Glucose 128 H, Calcium 9.8, Total Bilirubin 0.70, AST 20, ALT 28, Alkaline Phosphatase 75, Total Protein 8.9 H, Albumin 4.8, Globulin 4.1, Albumin/Globulin Ratio 1.2 08/18/22 20:29: Ethyl Alcohol < 3.0 08/18/22 20:29: Serum , Qual NEGATIVE 08/19/22 06:08: WBC 14.1 H, RBC 4.48, Hgb 12.9, Hct 39.5, MCV 88.2, MCH 28.8, MCHC 32.7, RDW Std Deviation 44.7 H, RDW Coeff of Jose 13.7, Plt Count 360, MPV 10.4, Immature Gran % (Auto) 0.400, Neut % (Auto) 68.9, Lymph % (Auto) 22.1, Brewster % (Auto) 7.5, Eos % (Auto) 0.6, Baso % (Auto) 0.5, Absolute Neuts (auto) 9.7 H, Absolute Lymphs (auto) 3.11, Nucleated RBC % 0 08/19/22 06:25: Urine Opiates Screen NEGATIVE, Urine Methadone Screen NEGATIVE, Ur Barbiturates Screen POSITIVE H, Ur Phencyclidine Scrn NEGATIVE, Ur Amphetamines Screen POSITIVE H, MDMA (Ecstasy) Screen POSITIVE H, U Benzodiazepines Scrn NEGATIVE, Urine Cocaine Screen NEGATIVE, U Cannabinoids Screen POSITIVE H, Ur Drug Screen Comment 08/19/22 06:25: Urine Color Yellow, Urine Clarity Clear, Urine pH 6.0, Ur Specific [place] 1.025, Urine Protein 30 H, Urine Glucose (UA) Normal, Urine Ketones 150 A*, Urine Occult Blood 25 H, Urine Nitrite Negative, Urine BilirubinNegative, Urine Urobilinogen Normal, Ur Leukocyte Esterase Negative, Urine RBC 0-5 SEEN, Urine WBC 0 SEEN, Ur Squamous Epith Cells 0 SEEN, Urine Bacteria 1+, Urine Mucus 1+ 08/19/22 08:05: Chlam trachomat DNA PCR Negative, N.gonorrhoeae DNA (PCR) Negative Physical Exam Narrative General: Alert, oriented HEENT: Atraumatic, normocephalic Eyes: Anicteric, normal conjunctiva, extraocular movements grossly intact Neck: Supple Respiratory: Clear to auscultation bilaterally, normal respiratory effort Cardiovascular: Mildly tachycardic and rhythm GI: Soft, nontender, nondistended Extremities: No edema Musculoskeletal: Moving all extremities Neuro: No overt focal neurological deficits Skin: No rashes appreciated Psych: More cooperative as exam continued Assessment & Plan Assessment/Plan (1) Alcohol withdrawal: (2) Desire for detoxification: (3) Alcohol dependence: (4) Obesity (BMI 30-39.9): (5) Morbid obesity: (6) Methamphetamine use: (7) Cannabis use disorder: PLAN: Plan #Alcohol dependence and desire for detoxification Patient with elevated blood pressure, and tachycardia on presentation Alcohol level on presentation was less than 3. Review of previous labs showed that patient was positive for cannabinoids and methamphetamine. Patient be started on phenobarbital and other adjunctive medications: Gabapentinas needed; dicyclomine as needed; Vistaril as needed; Imodium as needed; trazodone as needed; Zofran as needed; scheduled thiamine; and schedule folic acid. Monitor CIWA score -08/19: Continue phenobarbital taper, patient unsure if she wants inpatient versus outpatient after detox, will continue discussion as taper continues #Tobacco abuse Counseled Nicotine patch prescribed. #Methamphetamine abuse Counseled #Marijuana abuse Counseled #Acute on chronic leukocytosis White count on presentation was 17,500. Acute phase likely reactive. Trend. -08/19: Improving, no signs or symptoms of infection #Morbid Obesity: BMI: 39.9 kg/m?. Complicates care. Lifestyle modification recommended. #Mild hypokalemia Clinical monitoring -08/19: Replaced #EVANS Creatinine on presentation was 1.15. Baseline creatinine is around 0.82. Gentle IV fluids ordered. Trend BMP -08/19: We will recheck labs in a.m. #DVT prophylaxis Low risk Encourage to ambulate Charges/Coding Visit Charges Inpatient E&M: 71889 Subs Hosp L2 08/19/22 1728 <Electronically signed by Emily Godfrey MD> Cosigner Signature (if applicable): CC: ~ Signed [facility] Work Phone: 1(711) 424-391802-28-2023 History and physical note Author Dr. Vargas [facility] August 19, 2022 1:51am Note Date/Time August 18, 2022 9:04pm [facility] Medical Records Department [address] [place] [address] [place] [address] H&P Exam - Hospitalist 08/18/222102 MR#: [id number] Acct: [id number] Name: ANDREW MENA Rep #:[id number] : 1995 27 From: Enzo Vargas MD PCP: Dr. Nanci Corral MD Status:A DM IN Location: [facility] [id number] HPI - General General Date of Admission: 08/18/22 Date of Service: 08/18/22 Chief Complaint: Desire for detoxification HPI Narrative ANDREW MENA, is a 27 F with a significant history of tobacco abuse; marijuanaabuse; methamphetamine abuse and alcohol abuse who presented to the emergency department with help with detoxification. Of note patient reports drinking about a bottle of [place] liquor every day. Also she drinks a couple of twisted teas each day. Further, she also drinks tequila. On presented while she reported to hospitalist that she is unemployed; she reported to the emergency department doctor that alcohol is affecting her work. She reports that she has been drinking since her teenage years. Last time she drank was on the morning on the day of presentation. She reports being in withdrawal. She reports her withdrawal symptoms as anxiety, malaise, nausea, lower back pain, and muscle twitching. Reportedly on presentation to the emergency department her heart rate was in the 140s. With IV fluids her heart rate dropped into the 110s PFSH Medical History Asthma Morbid obesity Obesity (BMI 30-39.9) Seasonal allergies Vaginal discharge Home Medications albuterol sulfate 90 mcg/actuation aerosol inhaler 1 inh inhalation Q6H PRN shortness of breath or wheezing #8.5 grams 02/13/21 [Rx Last Taken 08/11/22] loratadine 10 mg tablet (Allergy Relief (loratadine)) 10 mg PO DAILY Check with primary doctor 08/18/22 [History Last Taken 08/18/22] Allergy/AdvReac Type Severity Reaction Status Date / Time penicillin G Allergy Mild Hives Verified 08/18/22 18:42 venom-honey bee Allergy Swelling Verified 08/18/22 18:42 [bee venom (honey bee)] Family History Grandmother Asthma Arthritis Surgical History History of wisdom tooth extraction Social History Smoking Status: Current some day smoker tobacco type: cigarettes alcohol intake: never substance use type: does not use what type of physical activity do you participate in: walking frequency: 5-6 times per week ROS ROS Narrative Pertinent positives and pertinent negatives as noted in HPI. All other systems were reviewed and are negative Vital Signs Vital Signs Vital Signs: 08/18/22 18:42 08/18/22 20:15 Temperature 98 F Temperature Source Temporal Pulse Rate 147 H 110 H Respiratory Rate 18 18 Blood Pressure 143/104 H 135/104 H Blood Pressure Mean 117 114 Pulse Ox 97 97 Oxygen Delivery Method Room Air Room Air Weight Weight: 105.5 kg Body Mass Index (BMI) 39.9 Physical Exam Narrative Physical exam: General: Well-nourished, well-developed. Head: Normocephalic, atraumatic, no tenderness Eyes: Vision is grossly intact. EOMI ENT, no trauma, moist mucous membranes, no rhinorrhea Neck: Nontender, No thyromegaly. CVS: Regular rate and rhythm. S1-S2 present. No murmur, gallop or rub. Respiratory : clear to auscultation bilaterally, chest wall nontender, no wheezing Abdomen: Soft, nontender, nondistended, normal bowel sounds, no masses : Deferred Back: Nontender, no CVA tenderness, no midline spinal tenderness, deformities, step-offs Extremities: Nontender full range of motion, no trauma Skin: Normal color, no trauma, abrasions Neuro: Alert, oriented, cranial nerves II through XII grossly intact. Psychiatry: Normal mood. Normal affect. Not depressed. Not anxious. Results Lab / Micro Data Result Diagrams: 08/18/22 20:29 08/18/22 20:29 Labs: Laboratory Results - last 24 hr 08/18/22 20:29: WBC 17.5 H, RBC 4.98, Hgb 14.1, Hct 44.7, MCV 89.8, MCH 28.3, MCHC 31.5 L, RDW Std Deviation 45.5 H, RDW Coeff of Jose 13.9, Plt Count 489 H, MPV 10.7, Immature Gran % (Auto) 0.400, Neut % (Auto) 77.2 H, Lymph % (Auto) 15.9 L, Brewster % (Auto) 6.1, Eos % (Auto) 0.1, Baso % (Auto) 0.3, Absolute Neuts (auto) 13.5 H, Absolute Lymphs (auto) 2.78, Nucleated RBC % 0 08/18/22 20:29: Sodium 140, Potassium 3.4 L, Chloride 106, Carbon Dioxide 24.0, Anion Gap 10, BUN 16, Creatinine 1.15 H, Estim Creat Clear Calc 62.89, Est GFR (MDRD) Af Amer 72, Est GFR (MDRD) Non-Af 60, BUN/Creatinine Ratio 13.9, Glucose 128 H, Calcium 9.8, Total Bilirubin 0.70, AST 20, ALT 28, Alkaline Phosphatase 75, Total Protein 8.9 H, Albumin 4.8, Globulin 4.1, Albumin/Globulin Ratio 1.2 08/18/22 20:29: Ethyl Alcohol < 3.0 08/18/22 20:29: Serum , Qual NEGATIVE Assessment & Plan Assessment/Plan (1) Alcohol withdrawal: (2) Desire for detoxification: (3) Alcohol dependence: (4) Obesity (BMI 30-39.9): (5) Morbid obesity: (6) Methamphetamine use: (7) Cannabis use disorder: PLAN: Plan Alcohol dependence and desire for detoxification Patient with elevated blood pressure, and tachycardia on presentation Alcohol level on presentation was less than 3. Review of previous labs showed that patient was positive for cannabinoids and methamphetamine. Patient be started on phenobarbital and other adjunctive medications: Gabapentinas needed; dicyclomine as needed; Vistaril as needed; Imodium as needed; trazodone as needed; Zofran as needed; scheduled thiamine; and schedule folic acid. Monitor CIWA score Tobacco abuse Counseled Nicotine patch prescribed. Methamphetamine abuse Counseled Marijuana abuse Counseled Acute on chronic leukocytosis White count on presentation was 17,500. Acute phase likely reactive. Trend. Morbid Obesity: BMI: 39.9 kg/m?. Complicates care. Lifestyle modification recommended. Mild hypokalemia Clinical monitoring EVANS Creatinine on presentation was 1.15. Baseline creatinine is around 0.82. Gentle IV fluids ordered. Trend BMP DVT prophylaxis Low risk Encourage to ambulate Charges/Coding Visit Charges Inpatient E&M: 50432 Init Hosp L3 08/19/22 0151 <Electronically signed by Enzo Vargas MD> Cosigner Signature (if applicable): CC: Dr. Nanci Corral MD; Dr. Enzo Vargas MD~ Signed [facility] Work Phone: 1(439) 776-231002-27-[address] Lisa [facility] August 18, 2022 9:04pm Note Date/Time August 18, 2022 8:10pm [facility] Medical Records Department [address] [place] [address] Emergency Department Summary 08/18/22 MR#: [id number] Acct: [id number] Name: ANDREW MENA Rep #:[id number] : 1995 27 From: Otto Lisa MD PCP: Dr. Nanci Corral MD Status:R EG ER Location: ED HPI History of Present Illness Chief Complaint: Mental Health Detail of Chief Complaint: Detox from alcohol, methamphetamine and cannabis Informant: patient Onset/Context/Timing Onset: Weeks Context: Sudden Onset Timing: Continuous Quality: Daily use of alcohol and cannabis, intermittent use of methamphetamine Location: Not applicable Current Severity: Moderate Maximum Severity: Moderate Worsened by: Patient is concerned she is going through withdrawal. Relieved by: Nothing Associated Symptoms Associated Symptoms: Positive for tremor, palpatations and unknown; Negative for vomiting*, diarrhea*, fever*, rash*, seizure, change in mental status, trauma, sex for drugs*, homicidal ideation or *HIV Risk Factors:Considertesting if last test > 6 months Narrative Narrative: Patient is a 27-year-old woman. Her drinking has affected her job. She is beendrinking shots of [place] recently. She does admit to daily cannabis use. She also uses methamphetamine. She has never been in a detox program. She states she needs help. She does endorse being depressed. She denies suicidal homicidal ideation. She denies symptoms of . She denies history of hepatitis C. She does have remote history of STI. Prior similar symptoms: No Recent Illness/Hospitalization: No PFSH PFS Medical History Asthma Morbid obesity Obesity (BMI 30-39.9) Seasonal allergies Vaginal discharge Home Medications etonogestrel 68 mg subdermal implant 68 mg SQ DAILY 04/30/20 [History Last Taken Unknown] albuterol sulfate 90 mcg/actuation aerosol inhaler 1 inh inhalation Q6H PRN shortness of breath or wheezing #8.5 grams 02/13/21 [Rx Last Taken Unknown] loratadine 10 mg tablet (Allergy Relief (loratadine)) 10 mg PO DAILY #90 tabs 02/13/21 [Rx Last Taken Unknown] fluticasone propionate 44 mcg/actuation HFA aerosol inhaler 2 inh inhalation BID3 months #10.6 grams 02/18/21 [Rx Last Taken Unknown] ciprofloxacin HCl 500 mg tablet 500 mg PO BID #20 TABLETS 06/08/22 [Rx Last Taken Unknown] metronidazole 500 mg tablet 500 mg PO Q6H #40 tabs 06/08/22 [Rx Last Taken Unknown] ondansetron 4 mg disintegrating tablet 4 mg PO Q8H PRN PRN Nausea #10 tabs 06/08/22 [Rx Last Taken Unknown] Allergy/AdvReac Type Severity Reaction Status Date / Time penicillin G Allergy Mild Hives Verified 08/18/22 18:42 venom-honey bee Allergy Swelling Verified 08/18/22 18:42 [bee venom (honey bee)] Family History Grandmother Asthma Arthritis Surgical History History of wisdom tooth extraction Social History Smoking Status: Current some day smoker tobacco type: cigarettes alcohol intake: never substance use type: does not use what type of physical activity do you participate in: walking frequency: 5-6 times per week ROS ROS ED Constitutional Constitutional ED: Denies chills, fever(s), subjective, sweats or weight loss Eyes Eyes: Denies blurry vision, change in vision or diplopia ENT ENT ED: Denies ear pain, rhinorrhea or sore throat Cardiovascular Cardiovascular: Reports palpitations and racing heartbeat; Denies chest pain Respiratory/Chest Respiratory/Chest: Denies cough, dyspnea or dyspnea on exertion Gastrointestinal Gastrointestinal: Reports nausea; Denies abdominal pain, diarrhea, melena or vomiting Genitourinary Genitourinary ED: Denies dysuria, urinary frequency or other Musculoskeletal Musculoskeletal: Denies arthralgias, back pain, myalgias or neck pain Integumentary Denies abscess or rash Neurologic Neurologic: Denies headache(s), paresthesias or weakness Psychiatric Psychiatric: Reports anxiety and depression; Denies suicidal ideation Endocrine Endocrinology: Denies cold intolerance or heat intolerance Hematologic/Lymphatic Hematologic/Lymphatic: Denies easy bleeding or easy bruising EXAM Physical Exam Const Vital Signs: 08/18/22 18:42 08/18/22 20:15 Temperature 98 F Temperature Source Temporal Pulse Rate 147 H 110 H Respiratory Rate 18 18 Blood Pressure 143/104 H 135/104 H Blood Pressure Mean 117 114 Pulse Ox 97 97 Oxygen Delivery Method Room Air Room Air Positive well nourished, well developed and obese Constitutional Narrative: Patient appears slightly nervous. General Appearance ED: well developed; Negative for pallor Nutritional Appearance: obese HEENT Reports moist mucous membranes HEENT Narrative: Head is normocephalic. Ears normal. Nares patent. Posterior pharynx is normal. atraumatic Eyes PERRL and EOMs intact bilaterally Eyes Narrative: There is no nystagmus. General Eye ED: Negative for pale conjunctiva or scleral icterus Neck no lymphadenopathy, supple and no JVD Lymph Lymphatic: no lymphadenopathy noted and lymphadenopathy Chest Wall inspection of chest normal and palpation of chest normal Resp normal respiratory effort and clear to auscultation bilaterally Cardio regular rhythm, S1 normal heart sound, S2 normal heart sound and no murmurs Rate: tachycardic GI soft to palpation, non-tender, non-distended and no masses Auscultation: hypoactive bowel sounds Back/Spine no CVA tenderness Cervical Spine: Negative for cervical spine tenderness Thoracic Spine / Upper Back: Negative for thoracic spinal tenderness Extremity General Extremety ED: Negative for edema or tenderness General Extremity: Negative for edema Neuro oriented x3, CN's II-XII intact bilaterally and no sensory deficits noted Neuro Narrative: DTR are brisk. There is no clonus. Dustin Coma Scale: document GCS findings Spontaneous Obeys Commands Oriented 15 Sensorium / Orientation: alert Speech: speech normal Motor Exam: strength 5/5 throughout Psych thought process normal Mood & Affect: depressed Skin General Skin Exam: Negative for jaundice or pallor Lesions: no lesions Rashes: no rashes MDM MDM MDM Narrative Medical decision making narrative: Patient is tachycardic. This may be due to methamphetamine use versus alcohol withdrawal. Will obtain EKG to determine rhythm. Appropriate blood work was obtained for addiction medicine. Since last menses is uncertain will obtain serum test. Lab Data Attestation: I reviewed the patient's lab results. Lab results narrative: White count is elevated 17.5 thousand. This is nonspecific. Comprehensive metabolic panel is unremarkable. Alcohol is nondetected. Serum test is negative. Labs: Laboratory Results - last 24 hr 08/18/22 08/18/22 08/18/22 20:29 20:29 20:29 WBC 17.5 H RBC 4.98 Hgb 14.1 Hct 44.7 MCV 89.8 MCH 28.3 MCHC 31.5 L RDW Std Deviation 45.5 H RDW Coeff of Jose 13.9 Plt Count 489 H MPV 10.7 Immature Gran % (Auto) 0.400 Neut % (Auto) 77.2 H Lymph % (Auto) 15.9 L Brewster % (Auto) 6.1 Eos % (Auto) 0.1 Baso % (Auto) 0.3 Absolute Neuts (auto) 13.5 H Absolute Lymphs (auto) 2.78 Nucleated RBC % 0 Sodium 140 Potassium 3.4 L Chloride 106 Carbon Dioxide 24.0 Anion Gap 10 BUN 16 Creatinine 1.15 H Estim Creat Clear Calc 62.89 Est GFR (MDRD) Af Amer 72 Est GFR (MDRD) Non-Af 60 BUN/Creatinine Ratio 13.9 Glucose 128 H Calcium 9.8 Total Bilirubin 0.70 AST 20 ALT 28 Alkaline Phosphatase 75 Total Protein 8.9 H Albumin 4.8 Globulin 4.1 Albumin/Globulin Ratio 1.2 Serum , Qual Ethyl Alcohol < 3.0 08/18/22 20:29 WBC RBC Hgb Hct MCV MCH MCHC RDW Std Deviation RDW Coeff of Jose Plt Count MPV Immature Gran % (Auto) Neut % (Auto) Lymph % (Auto) Brewster % (Auto) Eos % (Auto) Baso % (Auto) Absolute Neuts (auto) Absolute Lymphs (auto) Nucleated RBC % Sodium Potassium Chloride Carbon Dioxide Anion Gap BUN Creatinine Estim Creat Clear Calc Est GFR (MDRD) Af Amer Est GFR (MDRD) Non-Af BUN/Creatinine Ratio Glucose Calcium Total Bilirubin AST ALT Alkaline Phosphatase Total Protein Albumin Globulin Albumin/Globulin Ratio Serum , Qual NEGATIVE Ethyl Alcohol EKG Initial EKG: Attestation: I personally reviewed and interpreted this EKG as follows: Interpretation: Sinus Tachycardia (Heart rate is 119. EKG is otherwise unremarkable. KS interval is 126 ms. Cures duration 76 ms. QT duration 322 ms. [place] is normal.) Treatment and Re-Evaluation Narrative: Since patient is tachycardic with brisk reflexes will treat with p.o. phenobarb. Discharge Plan Dx/Rx/DC Orders Clinical Impression: Alcohol withdrawal, Obesity (BMI 30-39.9), Alcohol dependence, Cannabis use disorder, Methamphetamine use, Sinus tachycardia, Elevated blood pressure reading Disposition Disposition: [facility] What to do if you have Problems For any increased pain, shortness of breath, bleeding, nausea or vomiting, chestpain, or any unexpected problems, contact your Primary Care Provider. Call [facility] ([phone]) or report to the closest Emergency Room. Call 911 if necessary. [id number]/18/[id number] <Electronically signed by Otto Lisa MD> Cosigner Signature (if applicable): CC: Dr. Nanci Corral MD ~ Signed [facility] Work Phone: 1(865) 378-217702-02-2023 History of Present illness Narrative* Elle Hathaway APRN.SUGAR SAMPLER - 07/24/2022 10:45 AM EST CC: Patient presents with: Vaginal Discharge: Pt reported vaginal discharge/odor unprotected intercourse x1 wk, + STD exposure. HPI Andrew Mena is a 27 year old female who presents with complaint of possible UTI. These symptoms have been present for 7 days. Associated symptoms: abnormal vaginal discharge Denies: vaginal redness and vaginal itching Treatments: nothing The ROS was otherwise negative. PMH, Medications, labs, allergies, and recent past visits with PCP were reviewed and updated as able. PHYSICAL EXAM: BP 122/76 Pulse (!) 128 Temp 36.8 C (98.3 F) (Tympanic) Resp 18 Wt 108.5 kg (239 lb 3.2 oz) LMP 07/18/2022 (Exact Date) SpO2 97% BMI 39.85 kg/m General: Well appearing and alert PAST MEDICAL HISTORY Diagnosis Date Marijuana use Methamphetamine abuse (HCC) Substance abuse (HCC) PAST SURGICAL HISTORY Procedure Laterality Date NEXPLANON INSERTION Left 02/22/2021 PAST SURGICAL HISTORY OF wisdom teeth ALLERGIES Penicillins and Venom-Honey Bee MEDICATIONS albuterol HFA (PROVENTIL HFA, VENTOLIN HFA) 90 mcg/actuation inhaler Inhale 2 Puffs as instructed every 4 hours as needed for wheezing/shortness of breath. albuterol HFA (PROAIR HFA) 90 mcg/actuation inhaler Inhale 2 Puffs as instructed every 6 hours as needed. loratadine (CLARITIN) 10 mg tablet Take 1 tablet by mouth once daily. albuterol HFA (VENTOLIN HFA) 90 mcg/actuation inhaler Inhale 2 Puffs as instructed every 4 hours asneeded for Wheezing/Shortness of Breath. albuterol HFA (PROVENTIL HFA, VENTOLIN HFA) 90 mcg/actuation inhaler Inhale 2 Puffs as instructed every 4 hours as needed. spironolactone (ALDACTONE) 50 mg tablet Take 1 tablet by mouth once daily. zinc oxide (DESITIN) 13 % crea Apply to affected area as needed for up to 7 days. FAMILY HISTORY Problem Relation Age of Onset Seizures Maternal Grandmother Social History Tobacco Use Smoking status: Former Years: 3.00 Types: Cigarettes Smokeless tobacco: Never Tobacco comments: vape Vaping Use Vaping Use: Never used Substance Use Topics Alcohol use: No Drug use: Yes ASSESSMENT/PLAN: 1. Vaginal discharge - ICD9: 623.5, ICD10: N89.8 - BACTERIAL VAGINOSIS AMPLIFICATION - EULALIA / TRICHOMONAS AMPLIFICATION - GC/CHLAMYDIA DNA DET No treatment at this time, self swabbed Prescription instructions reviewed with patient as applicable. Potential red flag symptoms discussed with the patient. Reviewed appropriate action plan to take if red flag symptoms occur. Patient agreeable to treatment plan. Elle Hathaway APRN.HAROON documented in this encounterMary [facility]01-[facility]23 Miscellaneous Notes* Telephone Encounter - Celine Monte - 06/30/2022 9:36 AM EST Patient given results and verbalized understanding of instructions given. Celine Monte * Telephone Encounter - Elle Hathaway APRN.CNP - 06/30/2022 8:27 AM EST Specimen was contaminated for the urine culture. If patient is still having symptoms patient shouldfollow-up with her primary care provider. documented in this encounterMary [facility]01-03-2023 Miscellaneous Notes* Telephone Encounter - Elizabeth Alvarez RN - 06/24/2022 12:14 PM EST Patient notified. States with her work schedule she will need to go to Urgent Care. Elizabeth Alvarez RN * Telephone Encounter - Juliana Lo RN - 06/24/2022 11:46 AM EST Left message for patient to call office. Juliana Lo RN * Telephone Encounter - Mary Guy APRN.CNM - 06/24/2022 11:39 AM EST I would recommend coming in for swab to verify if bacterial vaginosis or yeast. Mary Guy APRN.CNM * Telephone Encounter - Elizabeth Alvarez RN - 06/24/2022 10:10 AM EST Patient was treated for BV on 06/04/22. Calling today with c/o vaginal odor, discharge, and discomfort. Asking for another RX for Flagyl. Advised that she should be seen for another swab. Patient asking if she can have RX without an appointment. Currently at work. Elizabeth Alvarez RN documented in this encounterMary [facility]12-15-2022 Miscellaneous Notes* Telephone Encounter - Juliana Lo RN - 06/05/2022 1:40 PM EST Patient notified. Juliana Lo RN * Telephone Encounter - Mary Guy APRN.CNM - 06/05/2022 1:05 PM EST Order sent. Mary Guy APRN.CNM * Telephone Encounter - Juliana Lo RN - 06/05/2022 12:19 PM EST Patient starting Flagyl for +BV. States in the past with that antibiotic she has gotten a yeast infection. Asking if she can get a diflucan too. Please advise. Juliana Lo RN documented in this encounterMary [facility]12-15-2022 Miscellaneous Notes* Telephone Encounter - Farzaneh Doshi RN - 06/05/2022 8:40 AM EST Patient notified of results, verbalizes understanding of instructions. Farzaneh Doshi RN * Telephone Encounter - Elizabeth Alvarez RN - 06/05/2022 8:34 AM EST Attempted to notify patient. No answer and unable to leave a voicemail. Mychart message also sent. Elizabeth Alvarez RN * Telephone Encounter - Elizabeth Alvarez RN - 06/05/2022 8:31 AM EST ----- Message from Mary Guy APRN.CNM sent at 06/05/2022 8:02 AM EST ----- Please notify patient that swab was positive for Bacterial Vaginosis. A prescription was called in for Flagyl 500mg PO BID x 7 days. No alcohol while on medication or 24 hours after last dose. No intercourse during treatment. It is also recommended that patient take a probiotic for 30 days- Floragen. Mary Guy APRN.CNM documented in this encounterMary [facility]12-02-2022 Miscellaneous Notes* Telephone Encounter - Rocío Zuluaga LPN - 05/23/2022 9:31 AM EST Pt notified and voiced understanding. Rocío Zuluaga LPN * Telephone Encounter - Toya Rangel APRN.CNP - 05/23/2022 9:17 AM EST Please let the pt know that all her blood work and vaginal cultures are negative for infection. Still waiting on pap. Toya Rangel APRN.CNP documented in this encounterMary [facility]12-01-2022 History of Present illness Narrative* 27-year-old here today as a new patient * Normal Pap smear completed May [address] [facility] * Surgical history significant only for removal of wisdom teeth * Medical history significant only for asthma. She is here today believing that she has a hormone imbalance along with vaginal discharge and odor. She believes that she has a pH balance problem as well. * Her menstrual cycles do come regularly and we discussed the connection between hormones and menstrual cycles. * We discussed vaginal hygiene and vaginal care along with normal discharge and what to expect at different times of the menstrual cycle. She does use occasional boric acid suppositories. * She is currently in recovery and has been clean for 6 months and is also been without a partner for6 months. 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 For now she would just use condoms if needed. [id number] [address] [place] Work Phone: 1(266) 206-379010-27-2022 Miscellaneous Notes* Telephone Encounter - Sharon Montalvo LPN - 04/17/2022 9:35 AM EDT Patient notified.Sharon Montalvo LPN * Telephone Encounter - Elle Hathaway APRN.HAROON - 04/17/2022 7:09 AM EDT Patient came back negative for gonorrhea chlamydia trichomonas yeast and bacterial vaginosis. If symptoms persist patient should follow-up with her primary care doctor. documented in this encounterMary [facility]10-26-2022 History of Present illness Narrative* Yue Resendiz PA-C - 04/16/2022 6:11 PM EDT This note was created using [employer]. Subjective Andrew Mena is a 27 year old female. HPI Patient presents with vaginal and rectal drainage over the past week. She was exposed to gonorrhea and trichomonas. She had a new sexual partners. She was treated for trichomonas on 03/24 and completed the flagyl. She states her last menstrual cycle was about 2 weeks ago. No fever. Denies urinary complaints. No vomiting. Review of Systems Constitutional: Negative. HENT: Negative. Gastrointestinal: Positive for anal bleeding. Rectal drainage Genitourinary: Positive for vaginal discharge and vaginal pain. Negative for dysuria, frequency, hematuria and urgency. All other systems reviewed and are negative. PAST MEDICAL HISTORY Diagnosis Date Marijuana use Methamphetamine abuse (HCC) Substance abuse ([facility]) Current Outpatient Medications Medication Sig Dispense Refill loratadine (CLARITIN) 10 mg tablet Take 1 tablet by mouth once daily. 30 tablet 1 fluticasone (FLONASE) 50 mcg/actuation nasal spray Use 2 Sprays in each nostril once daily. Rinse mouth after use. 1 Each 0 albuterol HFA (PROAIR HFA) 90 mcg/actuation inhaler Inhale 2 Puffs as instructed every 6 hours as needed. 1 Each 0 albuterol HFA (VENTOLIN HFA) 90 mcg/actuation inhaler Inhale 2 Puffs as instructed every 4 hours asneeded for Wheezing/Shortness of Breath. 1 Inhaler 0 albuterol HFA (PROVENTIL HFA, VENTOLIN HFA) 90 mcg/actuation inhaler Inhale 2 Puffs as instructed every 4 hours as needed. 1 Inhaler 0 metroNIDAZOLE (FLAGYL) 500 mg tablet Take 1 tablet by mouth twice daily for 7 days. 14 tablet 0 famotidine (PEPCID) 20 mg tablet Take 2 tablets by mouth at bedtime as needed. (Patient not taking:Reported on 04/16/2022) 60 tablet 1 loratadine (CLARITIN) 10 mg tablet Take 1 tablet by mouth once daily. (Patient not taking: Reportedon 03/23/2022) 30 tablet 11 fluticasone (FLONASE) 50 mcg/actuation nasal spray Use 2 Sprays in each nostril once daily. Rinse mouth after use. (Patient not taking: Reported on 03/23/2022) 1 Each 0 zinc oxide (DESITIN) 13 % crea Apply to affected area as needed for up to 7 days. 57 g 0 etonogestrel (NEXPLANON) subdermal implant 68 mg 1 Each by SUBDERMAL route as directed. (Patient not taking: Reported on 03/23/2022) 1 Each 0 mupirocin (BACTROBAN) 2 % ointment Apply 1 application to affected area three times daily. (Patientnot taking: Reported on 08/19/2019 ) 30 g 0 etonogestrel (NEXPLANON) subdermal implant 68 mg 68 mg by SUBDERMAL route continuous. (Patient not taking: Reported on 04/16/2022) No current facility-administered medications for this visit. PAST SURGICAL HISTORY Procedure Laterality Date NEXPLANON INSERTION Left 02/22/2021 PAST SURGICAL HISTORY OF wisdom teeth FAMILY HISTORY Problem Relation Age of Onset Seizures Maternal Grandmother Social History Tobacco Use Smoking status: Former Years: 3.00 Types: Cigarettes Smokeless tobacco: Never Substance Use Topics Alcohol use: No Drug use: Not Currently Objective BP 124/68 Pulse 116 Temp 36.9 C (98.5 F) Resp 16 Wt 115.2 kg (254 lb) LMP (LMP Unknown) SpO2 98% BMI 42.27 kg/m Physical Exam Vitals reviewed. Constitutional: Appearance: Normal appearance. HENT: Head: Normocephalic and atraumatic. Genitourinary: Comments: Scant vaginal discharge in the vaginal canal. No lesions or vesicles. No obvious drainagefrom rectum. Skin: General: Skin is warm and dry. Neurological: Mental Status: She is alert. Assessment and Plan ASSESSMENT/PLAN: 1. Exposure to gonorrhea - ICD9: V01.6, ICD10: Z20.2 (primary diagnosis) Patient was tested today and will be treated with ceftriaxone. Discussed safe sex practices. Follow-up with women's health. - CEFTRIAXONE 500 MG SOLUTION FOR INJECTION - GC/CHLAMYDIA DNA DET - GC/CHLAMYDIA DNA DET 2. Exposure to trichomonas - ICD9: V01.6, ICD10: Z20.2 Patient will be treated with Flagyl. 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 - METRONIDAZOLE 500 MG TABLET - BACTERIAL VAGINOSIS AMPLIFICATION - EULALIA / TRICHOMONAS AMPLIFICATION Yue Resendiz PA-C documented in this encounterMary [facility]10-03-2022 Miscellaneous Notes* Telephone Encounter - Cleo Guerrier RN - 03/24/2022 3:36 PM EDT Spoke with patient. Given message from provider's office. Patient verbalizes understanding. Cleo Guerrier RN * Telephone Encounter - Mala Murry MA - 03/24/2022 3:13 PM EDT Tried calling pt, voicemail not set up yet. Will try again later. Mala Murry MA * Telephone Encounter - Evy San APRN.CNP - 03/24/2022 11:11 AM EDT + for trichomonas which is a sexually transmitted disease. Partner needed treated. Metronidazole 500 mg bid for 7 days, no alcohol while taking, abstinence for one week after treatment - [facility] Follow up with ADULT EDUCATION TEACHER as needed. Rest of vaginal cultures are negative. Evy San APRN.HAROON documented in this encounterMary [facility]10-02-2022 History of Present illness Narrative* Yue Resendiz PA-C - 03/23/2022 1:14 PM EDT This note was created using [employer]. Subjective Andrew Mena is a 27 year old female. HPI Patient presents with vaginal discharge and odor for the past 2 weeks. She has had some dysuria as well. She is not sure when her last menstrual cycle was. She had unprotected intercourse 2 weeks ago. This was with a new partner. She was tested for STDs in the ER about a month ago which was negative. at that time was negative. No fever. No back pain. No abdominal pain. Patient also complaining of a rash that she has had for over a year. When she scratches she will get hives. She has been seen here twice and told it was dermatographia some. She followed up with allergy and was put on famotidine and Claritin. She has been out of these medicines for a few days. Patient would also like refills on her albuterol inhaler, and Flonase for her allergies and asthma.She does not currently have a primary doctor. Review of Systems Constitutional: Negative. HENT: Negative. Respiratory: Negative. Cardiovascular: Negative. Gastrointestinal: Negative. Genitourinary: Positive for dysuria, vaginal discharge and vaginal pain. Negative for frequency, hematuria and vaginal bleeding. Musculoskeletal: Negative. Skin: Positive for rash. All other systems reviewed and are negative. PAST MEDICAL HISTORY Diagnosis Date Marijuana use Methamphetamine abuse (HCC) Substance abuse ([facility]) Current Outpatient Medications Medication Sig Dispense Refill albuterol HFA (VENTOLIN HFA) 90 mcg/actuation inhaler Inhale 2 Puffs as instructed every 4 hours asneeded for Wheezing/Shortness of Breath. 1 Inhaler 0 albuterol HFA (PROVENTIL HFA, VENTOLIN HFA) 90 mcg/actuation inhaler Inhale 2 Puffs as instructed every 4 hours as needed. 1 Inhaler 0 loratadine (CLARITIN) 10 mg tablet Take 1 tablet by mouth once daily. 30 tablet 1 famotidine (PEPCID) 20 mg tablet Take 2 tablets by mouth at bedtime as needed. 60 tablet 1 fluticasone (FLONASE) 50 mcg/actuation nasal spray Use 2 Sprays in each nostril once daily. Rinse mouth after use. 1 Each 0 albuterol HFA (PROAIR HFA) 90 mcg/actuation inhaler Inhale 2 Puffs as instructed every 6 hours as needed. 1 Each 0 loratadine (CLARITIN) 10 mg tablet Take 1 tablet by mouth once daily. (Patient not taking: Reportedon 03/23/2022) 30 tablet 11 fluticasone (FLONASE) 50 mcg/actuation nasal spray Use 2 Sprays in each nostril once daily. Rinse mouth after use. (Patient not taking: Reported on 03/23/2022) 1 Each 0 zinc oxide (DESITIN) 13 % crea Apply to affected area as needed for up to 7 days. 57 g 0 etonogestrel (NEXPLANON) subdermal implant 68 mg 1 Each by SUBDERMAL route as directed. (Patient not taking: Reported on 03/23/2022) 1 Each 0 mupirocin (BACTROBAN) 2 % ointment Apply 1 application to affected area three times daily. (Patientnot taking: Reported on 08/19/2019 ) 30 g 0 etonogestrel (NEXPLANON) subdermal implant 68 mg 68 mg by SUBDERMAL route continuous. No current facility-administered medications for this visit. PAST SURGICAL HISTORY Procedure Laterality Date NEXPLANON INSERTION Left 02/22/2021 PAST SURGICAL HISTORY OF wisdom teeth FAMILY HISTORY Problem Relation Age of Onset Seizures Maternal Grandmother Social History Tobacco Use Smoking status: Former Years: 3.00 Types: Cigarettes Smokeless tobacco: Never Substance Use Topics Alcohol use: No Drug use: Not Currently Objective BP 122/80 Pulse 91 Temp 36.7 C (98 F) Resp 18 Wt 116.3 kg (256 lb 6.4 oz) LMP (LMP Unknown) SpO2 98% BMI 42.67 kg/m Physical Exam Vitals reviewed. Constitutional: Appearance: Normal appearance. HENT: Head: Normocephalic and atraumatic. Cardiovascular: Rate and Rhythm: Normal rate and regular rhythm. Heart sounds: Normal heart sounds. Pulmonary: Effort: Pulmonary effort is normal. Breath sounds: Normal breath sounds. Genitourinary: Comments: deferred Skin: General: Skin is warm and dry. Comments: When patient scratches her skin, hives develop. No rash initially until she scratches Neurological: General: No focal deficit present. Mental Status: She is alert and oriented to person, place, and time. Assessment and Plan ASSESSMENT/PLAN: 1. Burning with urination - ICD9: 788.1, ICD10: R30.0 (primary diagnosis) Ua nehative here, negative - UA DIP, URINE (POC) - GC/CHLAMYDIA DNA DET 2. Vaginal discharge - ICD9: 623.5, ICD10: N89.8 Self swabs obtained, will treat based on results. Follow up with case specialist. - EULALIA / TRICHOMONAS AMPLIFICATION - BACTERIAL VAGINOSIS AMPLIFICATION 3. Unprotected sexual intercourse - ICD9: V69.2, ICD10: Z72.51 - HCG QUAL UR B/O 4. 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 Follow up with allergy. - LORATADINE 10 MG TABLET - FAMOTIDINE 20 MG TABLET 6. Seasonal allergies - ICD9: 477.9, ICD10: J30.2 Flonase refilled. - FLUTICASONE PROPIONATE 50 MCG/ACTUATION NASAL SPRAY,SUSPENSION Yue Resendiz PA-C documented in this encounterMary [facility]02-[facility]22 Evaluation note* Type Assessment Date assessment BMI 19.9 or less assessment Dietary counseling and surveilla nce assessment Encounter to establish care assessment Vaginal discharge assessment Dysuria assessment Dermatitis assessment Mild intermittent asthma without complication [facility] Work Phone: 1([phone]) 358-264601-28-2022 History of Present illness Narrative* Encounter Date Complaint History Of Prese nt Illness dysuria Location is lowe r back. The patient describes it as odorous and sharp. Additional information: LMP: 07/19/2021, started about 3 weeks, hx 2 ovarian cysts and no odor or cloudy. rash The patient pres ents for rash. Affected area(s) are scattered on the body. The patient describes the affected area(s) as itchy. Associated symptoms include dry skin and pruritus. Pertinent negatives include painful rash. Relevant history positive for family history of allergies, family history of asthma, history of allergies, history of asthma and history of atopic dermatitis. Additional information: resistant to steroids, recently on last month, feet are itchy too, does not have animals at this time, is not going away at all. Est. Care Current medicati ons: previously Prozac, trazodone, vistaril but does not want to take anymore Dentist: needs to see Eye doctor: needs to see Marital status/support system: lives in sober house ([facility]), will be there for next 18 months Sexually active: no # of partners:STD concerns: frequent BV infectionFemaleLMP: 3 weeks agoPAP: will get next month Menopause: control: getting nexplanon removed next month (has [employer] appt next month) vaginal discharge Last menstrual period was 07/19/2021. Additional information: has had on/off since having nexplanon placed. [facility] Work Phone: [phone] 372-320612-20-2016 History of Past illness Narrative* Problem Noted Date Resolved Date Trichomonal vaginitis during 6 11/19/2018 Overview: 06/10/16 - recheck at next 1-2 visits - KJ Late care 05/12/2016 11/19/2018 Overview: 05/12/2016Patient is approximately 16w . She has not had any care prior to today. Ultrasound ordered by Dr Tovar. TKRN Tobacco use in , antepartum 05/12/2016 11/19/2018 Overview: 05/12/2016Pt smokes 3-4 cigarettes a week. Discussed risks of smoking during . Advised pt to quit. TKRN Patient requested diagnostic testing 05/12/2016 10/30/2016 Overview: 05/29/16 - patient declines - KJ 05/12/2016Patient desires aneuploidy screening. TKRN documented as of this encounter (statuses as of 03/23/2022) [facility] History of Past illness Narrative* Problem Noted Date Resolved Date Trichomonal vaginitis during 6 11/19/2018 Overview: 06/10/16 - recheck at next 1-2 visits - KJ Late care 05/12/2016 11/19/2018 Overview: 05/12/2016Patient is approximately 16w . She has not had any care prior to today. Ultrasound ordered by Dr Tovar. TKRN Tobacco use in , antepartum 05/12/2016 11/19/2018 Overview: 05/12/2016Pt smokes 3-4 cigarettes a week. Discussed risks of smoking during . Advised pt to quit. TKRN Patient requested diagnostic testing 05/12/2016 10/30/2016 Overview: 05/29/16 - patient declines - KJ 05/12/2016Patient desires aneuploidy screening. TKRN documented as of this encounter (statuses as of 03/24/2022) [facility] of Past illness Narrative* Problem Noted Date Resolved Date Trichomonal vaginitis during 6 11/19/2018 Overview: 06/10/16 - recheck at next 1-2 visits - KJ Late care 05/12/2016 11/19/2018 Overview: 05/12/2016Patient is approximately 16w . She has not had any care prior to today. Ultrasound ordered by Dr Tovar. TKRN Tobacco use in , antepartum 05/12/2016 11/19/2018 Overview: 05/12/2016Pt smokes 3-4 cigarettes a week. Discussed risks of smoking during . Advised pt to quit. TKRN Patient requested diagnostic testing 05/12/2016 10/30/2016 Overview: 05/29/16 - patient declines - KJ 05/12/2016Patient desires aneuploidy screening. TKRN documented as of this encounter (statuses as of 04/16/2022) [facility] of Past illness Narrative* Problem Noted Date Resolved Date Trichomonal vaginitis during 6 11/19/2018 Overview: 06/10/16 - recheck at next 1-2 visits - KJ Late care 05/12/2016 11/19/2018 Overview: 05/12/2016Patient is approximately 16w . She has not had any care prior to today. Ultrasound ordered by Dr Tovar. TKRN Tobacco use in , antepartum 05/12/2016 11/19/2018 Overview: 05/12/2016Pt smokes 3-4 cigarettes a week. Discussed risks of smoking during . Advised pt to quit. TKRN Patient requested diagnostic testing 05/12/2016 10/30/2016 Overview: 05/29/16 - patient declines - KJ 05/12/2016Patient desires aneuploidy screening. TKRN documented as of this encounter (statuses as of 04/17/2022) [facility] History of Past illness Narrative* Problem Noted Date Resolved Date Trichomonal vaginitis during 6 11/19/2018 Overview: 06/10/16 - recheck at next 1-2 visits - KJ Non morbid obesity 05/29/2016 05/22/2022 Overview: 05/29/16 - consider early GCT at next visit - KJ Late care 05/12/2016 11/19/2018 Overview: 05/12/2016Patient is approximately 16w . She has not had any care prior to today. Ultrasound ordered by Dr Tovar. TKRN Tobacco use in , antepartum 05/12/2016 11/19/2018 Overview: 05/12/2016Pt smokes 3-4 cigarettes a week. Discussed risks of smoking during . Advised pt to quit. TKRN Patient requested diagnostic testing 05/12/2016 10/30/2016 Overview: 05/29/16 - patient declines - KJ 05/12/2016Patient desires aneuploidy screening. TKRN documented as of this encounter (statuses as of 05/23/2022) [facility] History of Past illness Narrative* Problem Noted Date Resolved Date Trichomonal vaginitis during 6 11/19/2018 Overview: 06/10/16 - recheck at next 1-2 visits - KJ Non morbid obesity 05/29/2016 05/22/2022 Overview: 05/29/16 - consider early GCT at next visit - KJ Late care 05/12/2016 11/19/2018 Overview: 05/12/2016Patient is approximately 16w . She has not had any care prior to today. Ultrasound ordered by Dr Tovar. TKRN Tobacco use in , antepartum 05/12/2016 11/19/2018 Overview: 05/12/2016Pt smokes 3-4 cigarettes a week. Discussed risks of smoking during . Advised pt to quit. TKRN Patient requested diagnostic testing 05/12/2016 10/30/2016 Overview: 05/29/16 - patient declines - KJ 05/12/2016Patient desires aneuploidy screening. TKRN documented as of this encounter (statuses as of 06/05/2022) [facility] History of Past illness Narrative* Problem Noted Date Resolved Date Trichomonal vaginitis during 6 11/19/2018 Overview: 06/10/16 - recheck at next 1-2 visits - Non morbid obesity 05/29/2016 05/22/2022 Overview: 05/29/16 - consider early GCT at next visit - Late care 05/12/2016 11/19/2018 Overview: 05/12/2016Patient is approximately 16w . She has not had any care prior to today. Ultrasound ordered by Dr Tovar. TKRN Tobacco use in , antepartum 05/12/2016 11/19/2018 Overview: 05/12/2016Pt smokes 3-4 cigarettes a week. Discussed risks of smoking during . Advised pt to quit. TKRN Patient requested diagnostic testing 05/12/2016 10/30/2016 Overview: 05/29/16 - patient declines - 05/12/2016Patient desires aneuploidy screening. TKRN documented as of this encounter (statuses as of 06/05/2022) [facility] History of Past illness Narrative* Problem Noted Date Resolved Date Trichomonal vaginitis during 6 11/19/2018 Overview: 06/10/16 - recheck at next 1-2 visits - Non morbid obesity 05/29/2016 05/22/2022 Overview: 05/29/16 - consider early GCT at next visit - Late care 05/12/2016 11/19/2018 Overview: 05/12/2016Patient is approximately 16w . She has not had any care prior to today. Ultrasound ordered by Dr Tovar. TKRN Tobacco use in , antepartum 05/12/2016 11/19/2018 Overview: 05/12/2016Pt smokes 3-4 cigarettes a week. Discussed risks of smoking during . Advised pt to quit. TKRN Patient requested diagnostic testing 05/12/2016 10/30/2016 Overview: 05/29/16 - patient declines - KJ 05/12/2016Patient desires aneuploidy screening. TKRN documented as of this encounter (statuses as of 06/26/2022) [facility] History of Past illness Narrative* Problem Noted Date Resolved Date Trichomonal vaginitis during 6 11/19/2018 Overview: 06/10/16 - recheck at next 1-2 visits - KJ Non morbid obesity 05/29/2016 05/22/2022 Overview: 05/29/16 - consider early GCT at next visit - KJ Late care 05/12/2016 11/19/2018 Overview: 05/12/2016Patient is approximately 16w . She has not had any care prior to today. Ultrasound ordered by Dr Tovar. TKRN Tobacco use in , antepartum 05/12/2016 11/19/2018 Overview: 05/12/2016Pt smokes 3-4 cigarettes a week. Discussed risks of smoking during . Advised pt to quit. TKRN Patient requested diagnostic testing 05/12/2016 10/30/2016 Overview: 05/29/16 - patient declines - KJ 05/12/2016Patient desires aneuploidy screening. TKRN documented as of this encounter (statuses as of 06/30/2022) [facility] History of Past illness Narrative* Problem Noted Date Resolved Date Trichomonal vaginitis during 6 11/19/2018 Overview: 06/10/16 - recheck at next 1-2 visits - KJ Non morbid obesity 05/29/2016 05/22/2022 Overview: 05/29/16 - consider early GCT at next visit - KJ Late care 05/12/2016 11/19/2018 Overview: 05/12/2016Patient is approximately 16w . She has not had any care prior to today. Ultrasound ordered by Dr Tovar. TKRN Tobacco use in , antepartum 05/12/2016 11/19/2018 Overview: 05/12/2016Pt smokes 3-4 cigarettes a week. Discussed risks of smoking during . Advised pt to quit. TKRN Patient requested diagnostic testing 05/12/2016 10/30/2016 Overview: 05/29/16 - patient declines - KJ 05/12/2016Patient desires aneuploidy screening. TKRN documented as of this encounter (statuses as of 07/24/2022) [facility] History of Past illness Narrative* Problem Noted Date Diagnosed Date Resolved Date Trichomonal vaginitis during 06/10/2016 11/19/2018 Overview: 06/10/16 - recheck at next 1-2 visits - KJ Non morbid obesity 05/29/2016 2 Overview: 05/29/16 - consider early GCT at next visit - KJ Late care 05/12/2016 9 Overview: 05/12/2016Patient is approximately 16w . She has not had any care prior to today. Ultrasound ordered by Dr Tovar. TKRN Tobacco use in , antepartum 05/12/2016 11/19/2018 Overview: 05/12/2016Pt smokes 3-4 cigarettes a week. Discussed risks of smoking during . Advised pt to quit. TKRN Patient requested diagnostic testing 05/12/2016 10/30/2016 Overview: 05/29/16 - patient declines - KJ 05/12/2016Patient desires aneuploidy screening. TKRN documented as of this encounter (statuses as of 01/23/2023) [facility] History of Past illness Narrative* Problem Noted Date Diagnosed Date Resolved Date Trichomonal vaginitis during 06/10/2016 11/19/2018 Overview: 06/10/16 - recheck at next 1-2 visits - Non morbid obesity 05/29/2016 2 Overview: 05/29/16 - consider early GCT at next visit - Late care 05/12/2016 9 Overview: 05/12/2016Patient is approximately 16w . She has not had any care prior to today. Ultrasound ordered by Dr Tovar. TKRN Tobacco use in , antepartum 05/12/2016 11/19/2018 Overview: 05/12/2016Pt smokes 3-4 cigarettes a week. Discussed risks of smoking during . Advised pt to quit. TKRN Patient requested diagnostic testing 05/12/2016 10/30/2016 Overview: 05/29/16 - patient declines - 05/12/2016Patient desires aneuploidy screening. TKRN documented as of this encounter (statuses as of 09/30/2023) [facility] History of Past illness Narrative* Problem Noted Date Diagnosed Date Resolved Date Trichomonal vaginitis during 06/10/2016 11/19/2018 Overview: 06/10/16 - recheck at next 1-2 visits - Non morbid obesity 05/29/2016 2 Overview: 05/29/16 - consider early GCT at next visit - Late care 05/12/2016 9 Overview: 05/12/2016Patient is approximately 16w . She has not had any care prior to today. Ultrasound ordered by Dr Tovar. TKRN Tobacco use in , antepartum 05/12/2016 11/19/2018 Overview: 05/12/2016Pt smokes 3-4 cigarettes a week. Discussed risks of smoking during . Advised pt to quit. TKRN Patient requested diagnostic testing 05/12/2016 10/30/2016 Overview: 05/29/16 - patient declines - KJ 05/12/2016Patient desires aneuploidy screening. TKRN documented as of this encounter (statuses as of 10/01/2023) [facility] August 22, 2022 12:34pm Note Date/Time August 22, 2022 12:3 2pm [facility] Medical Records Department [address] [place] [address] Instructions for Home/Discharge Instructions 08/22/22 1232 MR#: [id number] Acct: [id number] Name: ANDREW MENA Rep #:[id number] : 1995 27 From: Emily Godfrey MD PCP: Dr. Nanci Corral MD Status:A DM IN Discharge Instructions Diet Discharge Diet: No restrictions Activity Discharge Activity: Return to Normal Activity Follow Up Care Test Results: Test results from this visit will be discussed in further detail at your follow- up appointment, if applicable. Discharge Plan Admission Admit Date/Time: 08/18/22 21:04 Primary Reason for Your Visit: Alcohol detox Attending Provider: Emily Godfrey Primary Care Provider: Nanci Corral Consulting Providers: Enzo Vargas Instructions Patient Instructions: Addiction: Your Treatment Options Discharge Orders/Prescriptions Prescriptions: Continued albuterol sulfate 90 mcg/actuation HFA aerosol inhaler 1 inh inhalation Q6H PRN (Reason: shortness of breath or wheezing) Qty: 8.5 3RF loratadine [Allergy Relief (loratadine)] 10 mg tablet 10 mg PO DAILY Referrals / Follow Up: Nanci Corral MD [Primary Care Provider] - Within 1 Week Disposition Disposition (needs filled in before D/C Order can be placed): Inpatient Rehab Unit/Facility 08/22/22 1234<Electronically signed by Emily Godfrey MD>Emily Godfrey MD CC: Dr. Nanci Corral MD; Dr. Enzo Vargas MD ~ Signed [facility] Work Phone: Discharge summary Author Dr. Godfrey [facility] August 22, 2022 12:37pm Note Date/Time August 22, 2022 12:3 7pm [facility] Medical Records Department [facility] [place] [address] Discharge Summary 08/22/22 1234 MR#: [id number] Acct: [id number] Name: ANDREW MENA Rep #:[id number] : 1995 27 From: Emily Godfrey MD PCP: Dr. Nanci Corral MD Status:A DM IN [id number] Prov[facility] Date of Admission: 08/18/22 Date of Discharge: 08/22/22 Primary Care Physician: Dr. Nanci Corral MD Reason For Visit: DESIRE FOR ALCOHOL DETOXIFICATION Diagnosis Discharge Diagnosis (1) Alcohol withdrawal: Status: Acute Code(s): F10.939 - Alcohol use, unspecified with withdrawal, unspecified (2) Desire for detoxification: Status: Acute (3) Alcohol dependence: Status: Acute Code(s): F10.20 - Alcohol dependence, uncomplicated (4) Obesity (BMI 30-39.9): Status: Chronic Code(s): E66.9 - Obesity, unspecified (5) Morbid obesity: Status: Chronic Code(s): E66.01 - Morbid (severe) obesity due to excess calories (6) Methamphetamine use: Status: Acute Code(s): F15.10 - Other stimulant abuse, uncomplicated (7) Cannabis use disorder: Status: Acute Code(s): F12.90 - Cannabis use, unspecified, uncomplicated Plan Morbid (severe) obesity due to excess calories (08/18/22) Obesity, unspecified (08/18/22) Alcohol dependence, uncomplicated (08/18/22) Alcohol use, unspecified with withdrawal, unspecified (08/18/22) Cannabis use, unspecified, uncomplicated (08/18/22) Other stimulant abuse, uncomplicated (02/27/23) Tobacco use -EVANS?resolved Medications at Discharge Home Medications albuterol sulfate 90 mcg/actuation aerosol inhaler 1 inh inhalation Q6H PRN shortness of breath or wheezing #8.5 grams 02/13/21 loratadine 10 mg tablet (Allergy Relief (loratadine)) 10 mg PO DAILY Check with primary doctor 08/18/22 Hospital Course Summary of Care Provided Minutes Spent on Discharge: 36 Hospital Course: ANDREW MENA, is a 27 F with a significant history of tobacco abuse; marijuanaabuse; methamphetamine abuse and alcohol abuse who presented to the emergency department 08/18/22 with help with detoxification for her alcohol abuse. On admission she was tachycardic with an elevated blood pressure and alcohol was less than 3. She additionally has struggled with amphetamines and marijuana. She was started on phenobarbital taper. She did have elevated leukocytosis on arrival but no infection was found and this improved. Additionally had EVANS on admission but this improved with fluids. No remarkable events during admission and on day of discharge had no new complaints. She is discharged to [place] for inpatient rehab. Physical Exam Narrative General: Alert, oriented, no apparent distress HEENT: Atraumatic, normocephalic Eyes: extraocular movements grossly intact Neck: Supple Respiratory: normal respiratory effort Cardiovascular: no edema appreciated GI: nondistended Extremities: Moving all extremities Neuro: No overt focal neurological deficits Psych: Cooperative Weight / BMI Weight Weight: 105.5 kg Body Mass Index (BMI) 18.1 ABG / Lab / Microbiology Data Result Diagrams: 08/22/22 06:32 08/22/22 06:32 Laboratory: Laboratory Results - last 24 hr 08/22/22 06:32: WBC 6.4, RBC 4.23, Hgb 12.1, Hct 37.9, MCV 89.6, MCH 28.6, MCHC 31.9 L, RDW Std Deviation 42.7, RDW Coeff of Jose 13.1, Plt Count 305, MPV 11.0, Immature Gran % (Auto) 0.300, Neut % (Auto) 46.9 L, Lymph % (Auto) 36.9, Brewster % (Auto) 8.4, Eos % (Auto) 6.9 H, Baso % (Auto) 0.6, Absolute Neuts (auto) 3.0, Absolute Lymphs (auto) 2.36, Nucleated RBC % 0.3 08/22/22 06:32: Sodium 140, Potassium 4.2, Chloride 107, Carbon Dioxide 27.0, Anion Gap 6, BUN 11, Creatinine 0.69, Estim Creat Clear Calc 104.82, Est GFR (MDRD) Af Amer 130, Est GFR (MDRD) Non-Af 107, BUN/Creatinine Ratio 15.9, Glucose 90, Calcium 8.4 L, Total Bilirubin 0.10 L, AST 11 L, ALT 21, Alkaline Phosphatase 61, Total Protein 6.1 L, Albumin 3.2, Globulin 2.9, Albumin/GlobulinRatio 1.1 D/C Instructions Discharge Diet: No restrictions Meaningful Use Info Meaningful Use Diagnoses (Choose all that apply): None applicable Discharge Plan Admission Admit Date/Time: 08/18/22 21:04 Primary Reason for Your Visit: Alcohol detox Attending Provider: Emily Godfrey Primary Care Provider: Nanci Corral Consulting Providers: Enzo Vargas Instructions Patient Instructions: Addiction: Your Treatment Options Discharge Orders/Prescriptions Prescriptions: Continued albuterol sulfate 90 mcg/actuation HFA aerosol inhaler 1 inh inhalation Q6H PRN (Reason: shortness of breath or wheezing) Qty: 8.5 3RF loratadine [Allergy Relief (loratadine)] 10 mg tablet 10 mg PO DAILY Referrals / Follow Up: Nanci Corral MD [Primary Care Provider] - Within 1 Week Disposition Disposition (needs filled in before D/C Order can be placed): Inpatient Rehab Unit/Facility Charges/Coding Visit Charges Inpatient E&M: 44128 Disch Hosp >30min 08/22/22 1237 <Electronically signed by Emily Godfrey MD> Cosigner Signature (if applicable): CC: Dr. Nanci Corral MD; Dr. Emily Godfrey MD~ Signed [facility] Work Phone: Evaluation note* Diagnosis Burning with urination- Primary Dysuria Vaginal discharge Leukorrhea, not specified as infective Unprotected sexual intercourse Problems related to high-risk sexual behavior Mild intermittent asthma, uncomplicated Unspecified asthma Dermatographism Dermatographic urticaria Seasonal allergies Allergic rhinitis, cause unspecified [facility] Exposure to gonorrhea- Primary Contact with or exposure to venereal diseases Exposure to trichomonas Contact with or exposure to venereal diseases documented in this encounter [facility] noteNo assessment information availableWAdena [facility] Work Phone: Evaluation note* Diagnosis Vaginal discharge- Primary Leukorrhea, not specified as infective [facility] this encounter [facility]* Diagnosis Onset Date Resolution Status Alcohol dependence acute Alcohol withdrawal acute Cannabis use disorder acute Desire for detoxification ac hanna Elevated blood pressure reading acute Methamphetamine use acute Sinus tachycardia acute Morbid obesity chronic Obesity (BMI 30-39.9) [facility] Work Phone: Evaluation note* Diagnosis Vaginal odor- Primary Unspecified symptom associated with female genital organs Anxiety Anxiety state, unspecified Recurrent major depressive disorder, in partial remission ([facility]) Psychophysiologic insomnia Persistent disorder of initiating or maintaining sleep documented in this encounter [facility] Work Phone: Evaluation note* Diagnosis Unspecified mood disorder ([facility])- Primary documented in this encounter [facility] Work Phone: Evaluation note* Diagnosis Encounter to discuss test results- Primary Other specified counseling documented in this encounter [facility] Work Phone: Evaluation note* Diagnosis Anxiety Anxiety state, unspecified documented in this encounter [facility] Work Phone: Evaluation note* Diagnosis Vaginal discomfort- Primary Unspecified symptom associated with female genital organs documented in this encounter [facility] Work Phone: Evaluation note* Diagnosis Encounter to discuss test results- Primary Other specified counseling Antibiotic-induced yeast infection Candidiasis of unspecified site documented in this encounter [facility] Work Phone: Evaluation note* Diagnosis Bee allergy status- Primary Allergy to insects and arachnids Skin rash Rash and other nonspecific skin eruption documented in this encounter [facility] Work Phone: Evaluation note* Diagnosis Unspecified mood disorder ([facility])- Primary Screening for intellectual disability Special screening for intellectual disabilities documented in this encounter [facility] Work Phone: Evaluation note* Diagnosis Itching- Primary Unspecified pruritic disorder documented in this encounter [facility] Work Phone: Evaluation note* Diagnosis Vaginal discharge- Primary Leukorrhea, not specified as infective Urinary pain Renal colic Referral of patient- Primary Referral of patient without examination or treatment documented in this encounter [facility] Work Phone: Evaluation note* Diagnosis Vaginal discharge- Primary Leukorrhea, not specified as infective Urinary pain Renal colic documented in this encounter [facility] Work Phone: Evaluation note* Diagnosis Unspecified mood disorder ([facility])- Primary Housing or economic circumstance Unspecified housing or economic circumstance documented in this encounter [facility] Work Phone: Evaluation note* Diagnosis Anxiety- Primary Anxiety state, unspecified Housing or economic circumstance Unspecified housing or economic circumstance documented in this encounter [facility] Work Phone: Evaluation note* Diagnosis Bacterial vaginosis- Primary Vaginitis and vulvovaginitis, unspecified documented in this encounter [facility] Work Phone: Evaluation note* Diagnosis Urinary pain- Primary Renal colic documented in this encounter [facility] Work Phone: Evaluation note* Diagnosis Recurrent major depressive disorder, in partial remission ([facility])- Primary Alcohol use disorder, severe, in early remission, in controlled environment ([facility]) Methamphetamine use disorder, severe, in early remission, in controlled environment, dependence ([facility]) documented in this encounter [facility] Work Phone: Evaluation note* Diagnosis Dermatographia- Primary Dermatographic urticaria [facility] Diagnosis Alcohol use disorder, severe, in early remission, in controlled environment ([facility])- Primary Housing or economic circumstance Unspecified housing or economic circumstance documented in this encounter [facility] Work Phone: Evaluation note* Diagnosis Recurrent major depressive disorder in partial remission ([facility])- Primary Major depressive disorder, recurrent episode, in partial or unspecified remission Housing or economic circumstance Unspecified housing or economic circumstance documented in this encounter [facility] Work Phone: Evaluation note* Diagnosis Nausea and vomiting, unspecified vomiting type- Primary [facility] Diagnosis Exposure to gonorrhea- Primary Contact with or exposure to venereal diseases Exposure to gonorrhea Contact with or exposure to venereal diseases documented in this encounter [facility] Work Phone: Evaluation note* Diagnosis Dysuria- Primary Exposure to gonorrhea Contact with or exposure to venereal diseases documented in this encounter [facility] [facility] Diagnosis Burning with urination- Primary Dysuria Vaginal discharge Leukorrhea, not specified as infective documented in this encounter [facility]* Diagnosis Vaginal bleeding in , first trimester (HCC)- Primary [facility] Diagnosis Atopic dermatitis, unspecified type- Primary test negative examination or test, negative result [facility]* Diagnosis Less than 8 weeks gestation of (HCC)- Primary Acute cystitis without hematuria Acute cystitis [facility]* Diagnosis High risk , antepartum (HCC)- Primary Body mass index (BMI) 38.0-38.9, adult [facility]* Diagnosis High risk , antepartum (HCC)- Primary [facility]* Diagnosis High risk , antepartum (HCC)- Primary Body mass index (BMI) 38.0-38.9, adult [facility]* Diagnosis High risk , antepartum (HCC)- Primary Body mass index (BMI) 38.0-38.9, adult [facility]* Diagnosis High risk , antepartum (HCC)- Primary [facility]* Diagnosis Threatened (HCC)- Primary Threatened , unspecified as to episode of care [facility]* Diagnosis High risk , antepartum (HCC) [facility]* Diagnosis Threatened (HCC)- Primary Threatened , unspecified as to episode of care [facility]* Diagnosis Threatened (HCC)- Primary Threatened , unspecified as to episode of care [facility]* Diagnosis Threatened (HCC) Threatened , unspecified as to episode of care [facility]* Diagnosis Vaginal discharge- Primary Leukorrhea, not specified as infective [facility] Diagnosis Dysuria- Primary Vaginal discharge Leukorrhea, not specified as infective [facility] Diagnosis Secondary amenorrhea- Primary Absence of menstruation Exposure to STD Contact with or exposure to other communicable diseases Acute vaginitis Vaginitis and vulvovaginitis, unspecified [facility] Diagnosis Missed menses- Primary Absence of menstruation Vaginal discharge Leukorrhea, not specified as infective [facility] Diagnosis Vaginal yeast infection- Primary Candidiasis of vulva and vagina [facility] Diagnosis Screening for STD (sexually transmitted disease)- Primary Screening examination for venereal disease Burning with urination Dysuria Acute bilateral low back pain without sciatica [facility] Diagnosis BV (bacterial vaginosis)- Primary Vaginitis and vulvovaginitis, unspecified Vaginal yeast infection Candidiasis of vulva and vagina [facility] Diagnosis Vaginal discharge- Primary Leukorrhea, not specified as infective Cat scratch Other and unspecified superficial injury of other, multiple, and unspecified sites, without mention of infection [facility] Diagnosis Vaginal yeast infection- Primary Candidiasis of vulva and vagina [facility] Diagnosis Dysuria- Primary Vaginal discharge Leukorrhea, not specified as infective [facility] Diagnosis Encounter for contraceptive management, unspecified type- Primary [facility] Diagnosis Screen for STD (sexually transmitted disease)- Primary Screening examination for venereal disease Vaginal discharge Leukorrhea, not specified as infective Dysuria Moodiness Other mental problems [facility] Additional Instructions Thank you for trusting us with your care today! Please take Tylenol (2 pills, 650 mg) every 6 hours as needed for pain and fever control. Please return to the emergency department if your symptoms change or worsen. Please follow with your OBGYN for further outpatient evaluation and management. [facility] Work Phone: Hospital Discharge instructions Additional Instructions You have ear infections in both eardrums. The antibiotic Zithromax 1 pill a day starting tomorrow after lunch. Take 1 pill a day for the next 4 days. Motrin and Tylenol for pain. Should progressively start feeling better in 2 to 3 days. Follow-up with your primary care provider if not improving.[facility] Work Phone: Instructions* Date Instruction Additional Infor mation inhalers filled Related to Mild intermittent asthma without complication will send urine for culturemacrobid twice daily for 5 daypyridium as needed for burning Related to Dysuria will treat for BV an d yeast infection today (metronidazole twice daily for 7 days and diflucan once)will test for other STDs as well keep appt with [employer] next month Related to Vaginal discharge steroid taper over 2 weeksrefer to derm and cleaning specialist Related to Dermatitis Prescribed activity/exercise edu cation Related to BMI 19.9 or less Lifestyle education regarding di et Related to BMI 19.9 or less Giving encouragement to exercise Related to Dietary counseling and surveillance Dietary management e ducation, guidance, and counseling Related to Dietary counseling and surveillance [facility] Work Phone: Reuubg for referral (narrative)* Reason For Referral No Information [facility] Work Phone: Rehbay for referral (narrative)* Consultation (Routine) - Authorized Specialty Diagnoses / Procedures Referred By Dale baxter Referred To Contact Family Medicine / Primary Care Zahraa Patino PA-C [id number] [address] Department of Emergency Medicine [place] [phone] Referral ID Status Reason Start Date Expiration Date Visits Requested Visits Authorized [id number] Authorized Specialty Services Required 09/10/2023 09/09/2024 1 1 * Consultation (Routine) - Authorized Specialty Diagnoses / Procedures Referred By Dale baxter Referred To Contact Obstetrics and Gynecology Zahraa Patino PA-C [address] [address] Department of [place] [address] Referral ID Status Reason Start Date Expiration Date Visits Requested Visits Authorized [id number] Authorized Specialty Services Required 09/10/2023 09/09/2024 1 1 [facility] Work Phone: Reason for referral (narrative)No reason for referral information [facility] Work Phone: Summary Purpose Family History No Family History Records Found Family Member Type Diagnosis Age At Onset No Information Relationship Condition Age at Onset Recorded Date/T jackeline grandmother Asthma Unknown Arthritis Unknown Advance Directives No Advanced Directives Records Found Directive Yes / No Effective Date File Name Other Directive No N/A N/A Advance Directive Response Recorded Date/ Time Living Will No June 07 022 8:54pm Power of Bull Fiddle Player No June 07, 2022 8:54pm Advance Directive Response Recorded Date/ Time Living Will No August 18 023 8:15pm Power of Bull Fiddle Player No August 18, 2022 8:15pm Advance Directive Response Recorded Date/ Time Living Will No August 18 023 10:28pm Power of Bull Fiddle Player No August 18, 2022 10:28pm Advance Directive Response Recorded Date/ Time Living Will No October 14, 2023 7:33pm Power of Bull Fiddle Player No October 13 7:33pm Advance Directive Response Recorded Date/ Time Living Will No May 18, 024 5:58pm Power of Bull Fiddle Player No May 18, 2024 5:58pm Living Will No August 28, 2024 6:35pm Power of Bull Fiddle Player No August 28 6:35pm Advance Directive Response Recorded Date/ Time Living Will No August 28, 2024 6:35pm Do you have a Healthcare Power of Bull Fiddle Player? No August 28, 2024 6:35pm Living Will No September 27, 2024 9:23am Do you have a Healthcare Power of Bull Fiddle Player? No September 27, 2024 9:23am Chief Complaint and Reason for Visit Chief Complaint VOMITING Chief Complaint VOMITING n/v DESIRE FOR ALCOHOL DETOXIFICATION Reason for Visit Alcohol dependence Alcohol withdrawal Cannabis use disorder Desire for detoxification Elevated blood pressure reading Methamphetamine use Sinus tachycardia Morbid obesity Obesity (BMI 30-39.9) Chief Complaint VOMITING n/v DESIRE FOR ALCOHOL DETOXIFICATION DESIRE FOR ALCOHOL DETOXIFICATION DESIRE FOR ALCOHOL DETOXIFICATION DESIRE FOR ALCOHOL DETOXIFICATION DESIRE FOR ALCOHOL DETOXIFICATION Reason for Visit Alcohol dependence Alcohol withdrawal Cannabis use disorder Desire for detoxification Elevated blood pressure reading Methamphetamine use Sinus tachycardia Morbid obesity Obesity (BMI 30-39.9) Chief Complaint Chief Complaint Admit Date UTI May 18, 2024 4:15pm LILY EAR PAIN August 28, 2024 6:27 pm Chief Complaint Admit Date LILY EAR PAIN August 28, 2024 6:27 pm NAUSEA September 27, 2024 9:11 am Chief Complaint Admit Date LILY EAR PAIN August 28, 2024 6:27 pm NAUSEA September 27, 2024 9:11 am abd pain December 26, 2024 5:30p m Medications Administered Section Inactive Administered Medications - up to 3 most recent administrations Medication Order MAR Action Action Date Dose Rate Site cefTRIAXone 500 mg intramuscular injection (ROCEPHIN) 500 mg, INTRAMUSCULAR, ONCE, 1 dose, On Thu04/16/22 at 1730, Please document the antimicrobial indication: Empiric Given 04/16/2022 5:25 PM EDT 500 mg Buttocks, Right Health Concerns Assessment Noted Time PHQ-9 Depression Total Score: 4 09/19/19 23 12:02 PM PDT Assessment Noted Time PHQ-9 Depression Total Score: 22 0403/2 023 8:56 AM PDT Assessment Noted Time PHQ-9 Depression Total Score: 22 0403/2 023 8:56 AM PDT Assessment Noted Time PHQ-9 Depression Total Score: 1 01/21/20 23 12:09 PM PDT Reason for Referral Specialty Diagnoses / Procedures Referred By Contac t Referred To Contact Diagnoses Bee allergy status Isidro Nicole APRN, CNP [address] [place] [address] Referral ID Status Reason Start Date Expiration Date Visits Re quested Visits Authorized [id number] Closed 1 1 Specialty Diagnoses / Procedures Referred By Contac t Referred To Contact Dermatology Diagnoses Itching Isidro Nicole APRN, CNP [address] [place] [address] Referral ID Status Reason Start Date Expiration Date Visits Requested Visits Authorized [id number] New Request Specialty Services Required 12/18/2022 12/18/2023 1 1 Comments [facility] Dermatology Acute- constant itching of skin to entire body Specialty Diagnoses / Procedures Referred By Contact Referred To Contact Maternal/ Medicine Diagnoses High risk , antepartum (HCC) Procedures CORRECTION FIRST TRIMESTER OB Luis Felipe Marie MD [address] [place] [id number] [facility] [address] [place] [address] Referral ID Status Reason Start Date Expiration Date Visits Requested Visits Authorized [id number] Authorized Continuity of Care 01/27/2024 01/27/2025 3 3 Specialty Diagnoses / Procedures Referred By Contac t Referred To Contact Nutrition Diagnoses High risk , antepartum (HCC) Luis Felipe Marie MD [address] [place] [address] [facility] NUTRITION [address] [place] [address] Referral ID Status Reason Start Date Expiration Date Visits Requested Visits Authorized [id number] Authorized Consultatio [facility] 01/27/2024 01/26/2025 3 3 Scheduling Instructions Please call the Nutrition Clinic at to schedule an appointment if one was not made for you today. Question Answer Reason for Referral [11] Comments No prior visits in Nutrition Specialty Diagnoses / Procedures Referred By Contac t Referred To Contact Radiology Diagnoses High risk , antepartum (HCC) Procedures US FEMALE PELVIS+BLADDER Luis Felipe Marie MD [address] [place] [address] [facility] ULTRASOUND [address] [place] [address] Referral ID Status Reason Start Date Expiration Date V isits Requested Visits Authorized [id number] Authorized 02/01/2024 01/26/2025 1 1 Specialty Diagnoses / Procedures Referred By Contac t Referred To Contact Radiology Diagnoses Threatened (HCC) Procedures US 1ST TRIMESTER Luis Felipe Marie MD [address] [place] [address] S ULTRASOUND [address] [place] [address] Referral ID Status Reason Start Date Expiration Date V isits Requested Visits Authorized [id number] Authorized 02/10/2024 02/08/2025 1 1 Referral ID Status Reason Start Date Expiration Date V isits Requested Visits Authorized [id number] Authorized 02/09/2024 02/08/2025 1 1 Chief Complaint * Patient here for annual exam * Desires STI testing * Not currently on any control but open to discuss * 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 * Patient had an unprotected sex last week, denies known exposure. * Her most recent STI testing on 12/12 was negative. She did not get blood work. She will get blood work today. * Discussed with patient safe sex practices and offered condoms. * test today was negative but discussed taking another test in 2 weeks. * Patient verbalized understanding and all questions and concerns addressed. * STEFANIE Marie, MSN Additional Source Comments INFORMATION SOURCE (unrecogn ized section and content) DATE CREATED AUTHOR 06/01/2018 [facility] DATE CREATED AUTHOR AUTHOR'S ORGANIZ ATION 06/25/2018 [facility] DATE CREATED AUTHOR AUTHOR'S ORGANIZ ATION 02/12/2020 [facility] DATE CREATED AUTHOR AUTHOR'S ORGANIZ ATION 07/14/2020 [facility] ([place]) DATE CREATED AUTHOR AUTHOR'S ORGANIZ ATION 09/16/2021 [facility] DATE CREATED AUTHOR AUTHOR'S ORGANIZ ATION 02/24/2022 [facility] DATE CREATED AUTHOR AUTHOR'S ORGANIZ ATION 03/24/2022 [facility] DATE CREATED AUTHOR AUTHOR'S ORGANIZ ATION 11/02/2022 [facility] DATE CREATED AUTHOR AUTHOR'S ORGANIZ ATION 01/09/2023 [facility] DATE CREATED AUTHOR AUTHOR'S ORGANIZ ATION 03/12/2023 [facility] DATE CREATED AUTHOR AUTHOR'S ORGANIZ ATION 04/12/2023 [facility] DATE CREATED AUTHOR AUTHOR'S ORGANIZ ATION 09/11/2023 [facility] DATE CREATED AUTHOR AUTHOR'S ORGANIZ ATION 02/27/2024 [facility] DATE CREATED AUTHOR AUTHOR'S ORGANIZ ATION 12/30/2024 [facility] DATE CREATED AUTHOR AUTHOR'S ORGANIZ ATION 01/12/2025 [facility] Source Comments (unrecognize d section and content) In the event this informatio n is protected by the Federal Confidentiality of Alcohol and Drug Abuse Patient Records regulations: The Federal rules restrict any use of the information to criminally investigate or prosecute any alcohol or drug abuse patient.[facility] the event this information is protected by the Federal Confidentiality of Alcohol and Drug Abuse Patient Records regulations: The Federal rules restrict any use of the information to criminally investigate or prosecute any alcohol or drug abuse patient.[facility] the event this information is protected by the Federal Confidentiality of Alcohol and Drug Abuse Patient Records regulations: The Federal rules restrict any use of the information to criminally investigate or prosecute any alcohol or drug abuse patient.[facility] the event this information is protected by the Federal Confidentiality of Alcohol and Drug Abuse Patient Records regulations: The Federal rules restrict any use of the information to criminally investigate or prosecute any alcohol or drug abuse patient.[facility] the event this information is protected by the Federal Confidentiality of Alcohol and Drug Abuse Patient Records regulations: The Federal rules restrict any use of the information to criminally investigate or prosecute any alcohol or drug abuse patient.[facility] the event this information is protected by the Federal Confidentiality of Alcohol and Drug Abuse Patient Records regulations: The Federal rules restrict any use of the information to criminally investigate or prosecute any alcohol or drug abuse patient.[facility] the event this information is protected by the Federal Confidentiality of Alcohol and Drug Abuse Patient Records regulations: The Federal rules restrict any use of the information to criminally investigate or prosecute any alcohol or drug abuse patient.[facility] the event this information is protected by the Federal Confidentiality of Alcohol and Drug Abuse Patient Records regulations: The Federal rules restrict any use of the information to criminally investigate or prosecute any alcohol or drug abuse patient.[facility] the event this information is protected by the Federal Confidentiality of Alcohol and Drug Abuse Patient Records regulations: The Federal rules restrict any use of the information to criminally investigate or prosecute any alcohol or drug abuse patient.[facility] the event this information is protected by the Federal Confidentiality of Alcohol and Drug Abuse Patient Records regulations: The Federal rules restrict any use of the information to criminally investigate or prosecute any alcohol or drug abuse patient.[facility] the event this information is protected by the Federal Confidentiality of Alcohol and Drug Abuse Patient Records regulations: The Federal rules restrict any use of the information to criminally investigate or prosecute any alcohol or drug abuse patient.[facility] the event this information is protected by the Federal Confidentiality of Alcohol and Drug Abuse Patient Records regulations: The Federal rules restrict any use of the information to criminally investigate or prosecute any alcohol or drug abuse patient.[facility] the event this information is protected by the Federal Confidentiality of Alcohol and Drug Abuse Patient Records regulations: The Federal rules restrict any use of the information to criminally investigate or prosecute any alcohol or drug abuse patient.[facility] the event this information is protected by the Federal Confidentiality of Alcohol and Drug Abuse Patient Records regulations: The Federal rules restrict any use of the information to criminally investigate or prosecute any alcohol or drug abuse patient.[facility] the event this information is protected by the Federal Confidentiality of Alcohol and Drug Abuse Patient Records regulations: The Federal rules restrict any use of the information to criminally investigate or prosecute any alcohol or drug abuse patient.[facility] the event this information is protected by the Federal Confidentiality of Alcohol and Drug Abuse Patient Records regulations: The Federal rules restrict any use of the information to criminally investigate or prosecute any alcohol or drug abuse patient.[facility] the event this information is protected by the Federal Confidentiality of Alcohol and Drug Abuse Patient Records regulations: The Federal rules restrict any use of the information to criminally investigate or prosecute any alcohol or drug abuse patient.[facility] the event this information is protected by the Federal Confidentiality of Alcohol and Drug Abuse Patient Records regulations: The Federal rules restrict any use of the information to criminally investigate or prosecute any alcohol or drug abuse patient.[facility] the event this information is protected by the Federal Confidentiality of Alcohol and Drug Abuse Patient Records regulations: The Federal rules restrict any use of the information to criminally investigate or prosecute any alcohol or drug abuse patient.[facility] the event this information is protected by the Federal Confidentiality of Alcohol and Drug Abuse Patient Records regulations: The Federal rules restrict any use of the information to criminally investigate or prosecute any alcohol or drug abuse patient.[facility] the event this information is protected by the Federal Confidentiality of Alcohol and Drug Abuse Patient Records regulations: The Federal rules restrict any use of the information to criminally investigate or prosecute any alcohol or drug abuse patient.[facility] the event this information is protected by the Federal Confidentiality of Alcohol and Drug Abuse Patient Records regulations: The Federal rules restrict any use of the information to criminally investigate or prosecute any alcohol or drug abuse patient.[facility] the event this information is protected by the Federal Confidentiality of Alcohol and Drug Abuse Patient Records regulations: The Federal rules restrict any use of the information to criminally investigate or prosecute any alcohol or drug abuse patient.[facility] the event this information is protected by the Federal Confidentiality of Alcohol and Drug Abuse Patient Records regulations: The Federal rules restrict any use of the information to criminally investigate or prosecute any alcohol or drug abuse patient.[facility] the event this information is protected by the Federal Confidentiality of Alcohol and Drug Abuse Patient Records regulations: The Federal rules restrict any use of the information to criminally investigate or prosecute any alcohol or drug abuse patient.[facility] the event this information is protected by the Federal Confidentiality of Alcohol and Drug Abuse Patient Records regulations: The Federal rules restrict any use of the information to criminally investigate or prosecute any alcohol or drug abuse patient.[facility] the event this information is protected by the Federal Confidentiality of Alcohol and Drug Abuse Patient Records regulations: The Federal rules restrict any use of the information to criminally investigate or prosecute any alcohol or drug abuse patient.[facility] the event this information is protected by the Federal Confidentiality of Alcohol and Drug Abuse Patient Records regulations: The Federal rules restrict any use of the information to criminally investigate or prosecute any alcohol or drug abuse patient.[facility] the event this information is protected by the Federal Confidentiality of Alcohol and Drug Abuse Patient Records regulations: The Federal rules restrict any use of the information to criminally investigate or prosecute any alcohol or drug abuse patient.[facility] HospitalIn the event this information is protected by the Federal Confidentiality of Alcohol and Drug Abuse Patient Records regulations: The Federal rules restrict any use of the information to criminally investigate or prosecute any alcohol or drug abuse patient.[facility] the event this information is protected by the Federal Confidentiality of Alcohol and Drug Abuse Patient Records regulations: The Federal rules restrict any use of the information to criminally investigate or prosecute any alcohol or drug abuse patient.[facility] Reason for Visit (unrecogniz ed section and content) Reason Comments Vaginal Problem Pain and odor x2 wee ks Rash Widespread x1 year Reason Comments Results Reason Comments Std Exposure drainage and rectal drainage, bleeding x 1 week Reason Onset Date Comments Results 06/05/2022 Reason Comments Patient Question Reason Comments Vaginal Discharge Pt reported vaginal discharge/odor unprotected intercourse x1 wk, + STD exposure. Reason Comments Complete Physical Exam [place] Reason Comments Behavioral Health Assessment Reason Comments Test Results Reason Comments Medication Management Reason Comments Appointment Walk in stomach disc omfort Reason Comments Lab Result Reason Comments Rash Reason Comments Care Coordination Referral Reason Comments Infection Check Reason Onset Date Comments Transportation 12/22/2022 Reason Onset Date Comments Transportation 12/26/2022 Reason Comments Appointment Walk in Reason Comments Vaginitis/Bacterial Vaginosis Reason Comments Itching Reason Onset Date Comments Transportation 04/06/2023 Reason Onset Date Comments Transportation 04/10/2023 Reason Comments Nausea/vomiting Reason Comments Exposure to STD Reason Comments STD check STD check-exposed to gonorrhea and having discharge x 1 week Reason Comments Vaginal Problem Vaginal discharge, y ellow, slight odor, itching x 2 days Reason Comments Medication Problem Reason Onset Date Comments Discuss results test/procedures 10/25/2023 Reason Comments Care Coordination Appointment Confirmation Reason Onset Date Comments Discuss results test/procedures 10/27/2023 Reason Comments Test Generalized redness/erythema/rash Reason Comments vaginal pain Was tx for std and s till feels uncomfortable, denies d/c or bleeding, states OB but not sure how far, Reason Comments APPOINTMENT SCHEDULING Outreach Reason Comments Care Coordination Reason Comments confirmed Specialty Diagnoses / Procedures Referred By Contac t Referred To Contact Radiology Diagnoses High risk , antepartum (HCC) Procedures US 1ST TRI/OB TRANSVAG (MINOO) US FEMALE PELVIS+BLADDER Luis Felipe Marie MD [address] [place] [address] [address] [facility] [address] [place] [address] Referral ID Status Reason Start Date Expiration Date Visits Re quested Visits Authorized [id number] Closed 02/01/2024 01/26/2025 1 1 Reason Onset Date Comments Discuss results test/procedures 02/05/2024 Specialty Diagnoses / Procedures Referred By Contac t Referred To Contact Radiology Diagnoses Threatened (HCC) Procedures US 1ST TRI/OB TRANSVAG (MINOO) US 1ST TRIMESTER Luis Felipe Marie MD [address] [place] [address] [address] [place] [address] Referral ID Status Reason Start Date Expiration Date Visits Re quested Visits Authorized [id number] Closed 02/10/2024 02/08/2025 1 1 Reason Comments APPOINTMENT SCHEDULING Reason Comments Vaginal Problem Diacharge, odor Reason Comments Erroneous encounter-disregard Reason Comments STD Upset stomach, nause a Reason Comments STI check Reason Comments Vaginal Discharge discharge, std check and hcg test Reason Comments Vaginal Problem States burning, lowe r back pain and wants STD testing Reason Onset Date Comments Results 11/30/2024 Reason Comments Animal Bite Cat scratch on chin x last night Reason Comments Abdominal Pain Lower pelvic crampin g x 4 days, states she is having some soreness in her breasts, Reason Onset Date Comments Results 12/23/2024 Reason Comments Patient Question Reason Comments Contraception Vaginal Problem Goals (unrecognized section and content) Goals may be documented in a n alternate sectionGoals may be documented in an alternate sectionGoals may be documented in an alternate sectionGoals may be documented in an alternate sectionGoals may be documented in an alternate sectionGoals may be documented in an alternate section Care Teams (unrecognized sec tion and content) Team Status: Active Member Role Status Dates No Primary Care Physician Family Provider Active Dr. Nanci Corral MD Primary Care Provider Active Team Status: Inactive Member Role Status Dates Dr. Nanci Corral MD Primary Care Provider Active Dr. Patricia Brown MD Attending Provider, Emergency Provider Active Team Status: Inactive Member Role Status Dates Dr. Nanci Corral MD Primary Care Provider Active Dr. Joe Hartmann DO Attending Provider, Emergency P casey Active Team Status: Active Member Role Status Dates Dr. Nanci Corral MD Primary Care Provider Active Dr. Otto Lisa MD Emergency Provider Active Dr. Enzo Vargas MD Admit Provider, Attending Pro vider Active Team Status: Active Member Role Status Dates Dr. Nanci Corral MD Primary Care Provider Active Dr. Otto Lisa MD Emergency Provider Active Dr. Enzo Vargas MD Admit Provider, Other Provide r Active Dr. Emily Godfrey MD Attending Provider, Other Provid er Active Team Status: Inactive Member Role Status Dates Dr. Nanci Corral MD Primary Care Provider Active Dr. Otto Lisa MD Emergency Provider Active Dr. Enzo Vargas MD Admit Provider, Other Provide r Active Dr. Emily Godfrey MD Attending Provider Active Restaurant Crew Person Relationship Specialty Start Date End Date Isidro Nicole APRN,HAROON [address] [place] [address] PCP - General Family Practice Nurse Prac 09/17/22 Restaurant Crew Person Relationship Specialty Start Date End Date Isidro Nicole APRN,SUGAR SAMPLER [address] [place] [address] PCP - General Family Practice Nurse Prac 09/17/22 Restaurant Crew Person Relationship Specialty Start Date End Date Isidro Nicole APRN, CNP [address] [place] [address] PCP - General Family Practice Nurse Prac 09/17/22 Restaurant Crew Person Relationship Specialty Start Date End Date Isidro Nicole APRN,SUGAR SAMPLER [address] [place] [id number] PCP - General Family Medicine, EXPOSURE MACHINE OPERATOR 09/17/22 Restaurant Crew Person Relationship Specialty Start Date End Date Isidro Nicole APRN, CNP [address] [place] [address] PCP - General Family Medicine, EXPOSURE MACHINE OPERATOR 09/17/22 Restaurant Crew Person Relationship Specialty Start Date End Date Isidro Nicole APRN,SUGAR SAMPLER [address] [place] [id number] PCP - General Family Medicine, EXPOSURE MACHINE OPERATOR 09/17/22 Restaurant Crew Person Relationship Specialty Start Date End Date Isidro Nicole APRN,HAROON [address] [place] [phone] PCP - General Family Medicine, EXPOSURE MACHINE OPERATOR 09/17/22 Restaurant Crew Person Relationship Specialty Start Date End Date Isidro Nicole APRN,SUGAR SAMPLER [address] [place] [phone] PCP - General Family Medicine, EXPOSURE MACHINE OPERATOR 09/17/22 Restaurant Crew Person Relationship Specialty Start Date End Date Isidro Nicole APRN,SUGAR SAMPLER [address] [place] [phone] PCP - General Family Medicine, EXPOSURE MACHINE OPERATOR 09/17/22 Restaurant Crew Person Relationship Specialty Start Date End Date Isidro Nicole APRN,SUGAR SAMPLER [address] [place] [phone] PCP - General Family Medicine, EXPOSURE MACHINE OPERATOR 09/17/22 Restaurant Crew Person Relationship Specialty Start Date End Date Isidro Nicole APRN,SUGAR SAMPLER [address] [place] [phone] PCP - General Family Medicine, EXPOSURE MACHINE OPERATOR 09/17/22 Restaurant Crew Person Relationship Specialty Start Date End Date Isidro Nicole APRN,SUGAR SAMPLER [address] [place] [address] PCP - General Family Medicine, EXPOSURE MACHINE OPERATOR 09/17/22 Restaurant Crew Person Relationship Specialty Start Date End Date Isidro Nicole APRN,SUGAR SAMPLER [address] [place] [phone] PCP - General Family Medicine, EXPOSURE MACHINE OPERATOR 09/17/22 Restaurant Crew Person Relationship Specialty Start Date End Date Isidro Nicole APRN,SUGAR SAMPLER [address] [place] [phone] PCP - General Family Medicine, EXPOSURE MACHINE OPERATOR 09/17/22 Restaurant Crew Person Relationship Specialty Start Date End Date Isidro Nicole APRN,HAROON [address] [place] [phone] PCP - General Family Medicine, EXPOSURE MACHINE OPERATOR 09/17/22 Restaurant Crew Person Relationship Specialty Start Date End Date Generic Provider, No Assigned PcpMD [facility] is the patient's Primary Care Group PCP - General Generation Mechanic Helper 09/10/23 Team Status: Inactive Member Role Status Dates Dr. Nanci Corral MD Primary Care Provider Active Dr. Vipul Gagnon , Emergency Provider Active Restaurant Crew Person Relationship Specialty Start Date End Date Reyna Guerin APRN.SUGAR SAMPLER [address] [place] [address] Referring General Surgery 02/08/24 Restaurant Crew Person Relationship Specialty Start Date End Date Reyna Guerin APRN.SUGAR SAMPLER [address] [place] [address] Referring General Surgery 02/08/24 Restaurant Crew Person Relationship Specialty Start Date End Date Reyna Guerin APRN.SUGAR SAMPLER [address] [place] [address] Referring General Surgery 02/08/24 Restaurant Crew Person Relationship Specialty Start Date End Date Reyna Guerin APRN.SUGAR SAMPLER [address] [place] [address] Referring General Surgery 02/08/24 Restaurant Crew Person Relationship Specialty Start Date End Date Reyna Guerin BARREL COATER.SUGAR SAMPLER [address] [place] [address] Referring General Surgery 02/08/24 Team Status: Active Member Role Status Dates Stephany FATIMAC, DO Primary Care Provider Active Team Status: Inactive Member Role Status Dates Stephany FATIMAC, DO Primary Care Provider Active Start: May 18, 2024 End: May 18, 2024 Dr. Etta Nayak DO Attending Provider Active Start: May 18, 2024 End: May 18, 2024 Dr. tEta Nayak , Emergency Provider Active Start: May 18, 2024 End: May 18, 2024 Team Status: Inactive Member Role Status Dates Stephany Bae VSC, DO Primary Care Provider Active Start: June 28, 2024 End: June 28, 2024 Stephany APPLE, DO Attending Provider Active Start: June 28, 2024 End: June 28, 2024 Team Status: Inactive Member Role Status Dates Stephany APPLE, DO Primary Care Provider Active Start: August 28, 2024 End: August 28, 2024 Dr. Bill Carrillo MD Emergency Provider Active S tart: August 28, 2024 End: August 28, 2024 Team Status: Inactive Member Role Status Dates Stephany APPLE, DO Primary Care Provider Active Start: August 28, 2024 End: August 28, 2024 Dr. Bill Carrillo MD Attending Provider Active S tart: August 28, 2024 End: August 28, 2024 Dr. Bill Carrillo MD Emergency Provider Active S tart: August 28, 2024 End: August 28, 2024 Team Status: Inactive Member Role Status Dates Stephany FATIMA, DO Primary Care Provider Active Start: September 27, 2024 End: September 27, 2024 Dr. Allan Rodriguez , DO Emergency Provider Active S tart: September 27, 2024 End: September 27, 2024 Restaurant Crew Person Relationship Specialty Start Date End Date Reyna Guerin, BARREL COATER.SUGAR SAMPLER [address] [place] [address] Referring General Surgery 02/08/24 Restaurant Crew Person Relationship Specialty Start Date End Date Reyna Guerin, BARREL COATER.SUGAR SAMPLER [address] [place] [address] Referring General Surgery 02/08/24 Restaurant Crew Person Relationship Specialty Start Date End Date Reyna Guerin, BARREL COATER.SUGAR SAMPLER [address] [place] [address] Referring General Surgery 02/08/24 Restaurant Crew Person Relationship Specialty Start Date End Date Reyna Guerin, BARREL COATER.SUGAR SAMPLER [address] [place] [address] Referring General Surgery 02/08/24 Restaurant Crew Person Relationship Specialty Start Date End Date Reyna Guerin, BARREL COATER.SUGAR SAMPLER [address] [place] [address] Referring General Surgery 02/08/24 Restaurant Crew Person Relationship Specialty Start Date End Date Reyna Guerin, BARREL COATER.SUGAR SAMPLER [address] [place] [address] Referring General Surgery 02/08/24 Team Status: Active Member Role/Relationship Status Dates Stephany Bae C, DO Primary Care Provider Active Team Status: Inactive Member Role/Relationship Status Dates Stephany Bae [facility], DO Primary Care Provider Active Start: August 28, 2024 End: August 28, 2024 Dr. Bill Carrillo MD Attending Provider Active S tart: August 28, 2024 End: August 28, 2024 Dr. Bill Carrillo MD Emergency Provider Active S tart: August 28, 2024 End: August 28, 2024 Team Status: Inactive Member Role/Relationship Status Dates Stephany Romanonate APPLE, DO Primary Care Provider Active Start: September 27, 2024 End: September 27, 2024 Dr. Allan Rodriguez , Attending Provider Active S tart: September 27, 2024 End: September 27, 2024 Dr. Allan Rodriguez , DO Emergency Provider Active S tart: September 27, 2024 End: September 27, 2024 Team Status: Inactive Member Role/Relationship Status Dates Stephany Bae ZECHARIAH, DO Primary Care Provider Active Start: December 26, 2024 End: December 26, 2024 Ed Physician Provider Emergency Provider Active Start: December 26, 2024 End: December 26, 2024 Restaurant Crew Person Relationship Specialty Start Date End Date Reyna Guerin, BARREL COATER.SUGAR SAMPLER [address] [place] [address] Referring General Surgery 02/08/24 Restaurant Crew Person Relationship Specialty Start Date End Date Reyna Guerin BARREL COATER.SUGAR SAMPLER [address] [place] [address] Referring General Surgery 02/08/24 <item><item><item> Privacy Markings (unrecogniz ed section and content) Section Author: Kisha Camargo PROHIBITION ON REDISCLOSURE OF CONFIDENTIAL INFORMATION This notice accompanies a disclosure of information concerning a client made to you with the consent of such client. Section Author: Kisha Camargo PROHIBITION ON REDISCLOSURE OF CONFIDENTIAL INFORMATION This notice accompanies a disclosure of information concerning a client made to you with the consent of such client. Section Author: Kisha Camargo PROHIBITION ON REDISCLOSURE OF CONFIDENTIAL INFORMATION This notice accompanies a disclosure of information concerning a client made to you with the consent of such client. Scheduled Active and Recently Administ ered Medications (unrecognized section and content) Medication Order 06/22/2023 06/23/2023 06/24/2023 droperidol (INAPSINE) 2.5 MG/ML injection (COMPLETED) 2.5 mg, Intravenous Push, ONCE, 1 dose, On Thu06/24/23 at 1237 1328 (Given - Provid er: Valentin Muniz RN) Famotidine (PF) (PEPCID) 20 MG/2ML injection (COMPLETED) 20 mg, Intravenous Push, STAT, 1 dose, On Thu06/24/23 at 1237 1328 (Given - Provid er: Valentin Muniz RN) lactated ringers iv bolus (COMPLETED) 1,000 mL, at 999 mL/hr, Intravenous, FLUID BOLUS, 1 dose, On Thu06/24/23 at 1237 1329 (IV New Bag - P rovider: Valentin Muniz RN)1454 (IV Stop - Provider: Tiana James RN) metoclopramide (REGLAN) 5 MG/ML injection (COMPLETED) 10 mg, Intravenous Push, STAT, 1 dose, On Thu06/24/23 at 1237 1328 (Given - Provid er: Valentin Muniz RN) Scheduled Medication Order 09/08/2023 09/09/2023 09/10/2023 azithromycin (Zithromax) tablet 2,000 mg (COMPLETED) 2,000 mg, oral, Once, On Ashley 09/10/23 at 1200, For 1 dose, Suspected Indication (Select all that apply): Sexually Transmitted Infection, Type of Therapy: Empiric 1251 (Given - Provid er: Sandra Sykes RN) doxycycline (Vibra-Tabs) tablet 100 mg (COMPLETED) 100 mg, oral, Once, On Ashley 09/10/23 at 1200, For 1 dose, Administer with meals to decrease GI upset; take with at least 8 ounces (large glass) of water, do not lie down for 30 minutes after., Suspected Indication (Select all that apply): Sexually Transmitted Infection, Type of Therapy: Empiric 1251 (Given - Provid er: Sandra Sykes RN) gentamicin (Garamycin) injection 240 mg (COMPLETED) 240 mg, intramuscular, Once, On Ashley 09/10/23 at 1200, For 1 dose, Suspected Indication (Select all that apply): Sexually Transmitted Infection, Type of Therapy: Empiric 1307 (Given - Provid er: Sandra Sykes RN - Comment: 3ml on R and 3ml on L) ondansetron (Zofran) injection 4 mg (COMPLETED) 4 mg, intravenous, Once, On Ashley 09/10/23 at 1200, For 1 dose, When administering via IV Push, administer over 3-5 minutes. 1251 (Given - Provid er: Sandra Sykes RN) sodium chloride 0.9 % bolus 1,000 mL (COMPLETED) 1,000 mL, intravenous, at 1,000 mL/hr, Administer over 1 Hours, Once, On Ashley 09/10/23 at 1220, For 1 dose 1251 (New Bag - Prov ider: Sandra Sykes RN)1351 (Stopped - Provider: Sandra Sykes RN) PRN Medication Order 09/08/2023 09/09/2023 09/10/2023 sodium chloride (PF) 0.9% solution 3 mL(Linked Group 1) 3 mL, intravenous, As needed, line care, Starting on Ashley 09/10/23 at 1147 Linked Groups Order Group 1: Insert and maintain peripheral IV (COMPLETED) Continuous, Starting on Ashley 09/10/23 at 1148, Until Specified And Saline lock IV (COMPLETED) Once, On Ashley 09/10/23 at 1148, For 1 occurrence And sodium chloride (PF) 0.9% solution 3 mLJump to med 3 mL, intravenous, As needed, line care, Starting on Ashley 09/10/23 at 1147 Scheduled Medication Order 01/15/2024 01/16/2024 01/17/2024 cephALEXin (KEFLEX) capsule (COMPLETED) 500 mg, Oral, STAT, 1 dose, On Thu01/17/24 at 1256 1240 (Given - Provid er: Zahraa Monzon RN) Inactive Administered Medications - up to 3 most recent administrations Administered Medications (un recognized section and content) Medication Order MAR Action Action Date Dose Rate Site cefTRIAXone 500 mg intramuscular injection (ROCEPHIN) 500 mg, INTRAMUSCULAR, ONCE, 1 dose, On Thu09/29/23 at 1500, Antimicrobial indication: Empiric Given 09/29/2023 3:07 PM EDT 500 mg Buttocks, Right FOR RECORDS PERTAINING TO PATIENTS WHO ARE OR HAVE BEEN ENROLLED IN A CHEMICAL DEPENDENCY/SUBSTANCEABUSE PROGRAM, SOME INFORMATION MAY BE OMITTED. This clinical summary was aggregated from multiple sources. Caution should be exercised in using it in the provision of clinical care. This summary normalizes information from multiple sources, and as a consequence, information in this document may materially change the coding, format and clinical context of patient data. In addition, data may be omitted in some cases. CLINICAL DECISIONS SHOULD BE BASED ON THE PRIMARY CLINICAL RECORDS. [employer] provides no warranty or guarantee of the accuracy or completeness of information in this document.
--- NOTE | 2025-01-17 23:20 | EDS_ITS ---
HPI History of Present Illness Chief Complaint: Complaint Narrative Narrative: Patient is a 30-year-old female past medical history of asthma, methamphetamine use, cannabis use disorder who presents to the emergency department with concern for UTI and vaginal discharge. Patient states that she for the past few days has had burning, urgency and some vaginal discharge. States that she feels like she may have a UTI which prompted her here. She also is complaining of some left flank pain with this. She denies any history of kidney stones. [facility] Medical History Alcohol withdrawal Obesity (BMI 30-39.9) Vaginal discharge Seasonal allergies Asthma Home Medications ?Medication ?Instructions ?Recorded ?Last Taken ?Type albuterol sulfate 90 mcg/actuation 1 inh inhalation Q6 H PRN shortness 02/13/21 08/11/22 Rx aerosol inhaler of breath or wheezing #8.5 g matilde loratadine 10 mg tablet (Allergy 10 mg PO DAILY Check with primary 08/18/22 08/18/22 History Relief (loratadine)) doctor albuterol sulfate 90 mcg/actuation 1 - 2 puff inhalati on Q4H PRN PRN 02/29/24 Unknown Rx aerosol inhaler (Ventolin HFA) Wheezing ##1 cephalexin 500 mg capsule 500 mg PO Q12 #14 CAPSULES 0 02/29/24 Unknown Rx fluconazole 150 mg tablet 150 mg PO X1 PRN yeast 1 dos e #2 02/29/24 Unknown Rx tabs loratadine 10 mg tablet (Claritin) 10 mg PO DAILY #30 tabs 02/29/24 Unknown Rx albuterol sulfate 90 mcg/actuation 1 - 2 puff inhalati on Q4H PRN PRN 03/24/24 Unknown Rx aerosol inhaler (Ventolin HFA) Wheezing ##1 fluconazole 150 mg tablet 150 mg PO Q3D 2 doses #2 tab s 03/24/24 Unknown Rx metronidazole 500 mg tablet 500 mg PO BID 7 days #14 t abs 03/24/24 Unknown Rx fluconazole 150 mg tablet 150 mg PO Q3D 2 doses #2 tab s 05/18/24 Unknown Rx metronidazole 500 mg tablet 500 mg PO BID 7 days #14 t abs 05/18/24 Unknown Rx azithromycin 250 mg tablet 250 mg PO DAILY 4 days #4 t abs 08/28/24 Unknown Rx (Zithromax) bisacodyl 10 mg rectal suppository 10 mg WA DAILY PRN constipation 09/27/24 Unknown Rx (OneLAX Bisacodyl) #12 ea lansoprazole 30 mg capsule,delayed 30 mg PO DAILY #14 caps 09/27/24 Unknown Rx release (Prevacid) ondansetron 4 mg disintegrating 4 mg PO Q8H PRN PRN Na usea #10 tabs 09/27/24 Unknown Rx tablet metronidazole 500 mg tablet 500 mg PO BID 7 days #14 t abs 01/17/25 Unknown Rx Allergy/AdvReac Type Severity Reaction Status Date / Time penicillin G Allergy Mild Hives Verified 01/17/25 18:42 venom-honey bee (bee venom Allergy Swelling Verified 01/17/25 18:42 (honey bee)) Family History Grandmother Asthma Arthritis Surgical History History of wisdom tooth extraction Social History Smoking Status: Current some day smoker tobacco type: cigarettes alcohol intake: never substance use type: does not use what type of physical activity do you participate in: walking frequency: 5-6 times per week ROS ROS ED ROS Narrative Constitutional: Denies any fevers, chills, headaches Cardiovascular: Denies chest pain Respiratory: Denies coughing wheezing shortness of breath Abdomen: Denies abdominal pain nausea vomit diarrhea : Complains of urinary symptoms as noted above Neurological: Denies any numbness, wheeze, tingling Musculoskeletal: Complains of left flank pain as noted above Skin: Denies any rashes or lesions EXAM Physical Exam Narrative Exam Narrative: General: Patient is lying in bed rest comfortably did not appear to be in acute distress Head: Atraumatic, normocephalic Eyes: PERRL bilateral, EOMI bilaterally, no conjunctival injection noted Neck: Soft, supple, trachea midline Cardiovascular: Regular rate and rhythm Respiratory: Clear to auscultation bilaterally Abdomen: Soft, nondistended, nontender to palpation Musculoskeletal: No CVA tenderness noted on exam Extremities: +5/5 strength noted in bilateral upper and lower extremities Neurological: Patient follow commands knew that she was at [facility] years 2024 Skin: Warm, dry, tact no rashes lesions noted Const Vital Signs: 01/17/25 18:40 01/17/25 20:40 01/17/25 22:00 Temperature 98.8 F Temperature Source Oral Pulse Rate 107 H 91 89 Respiratory Rate 16 18 16 Blood Pressure 122/87 H 135/78 H 131/73 H Blood Pressure Mean 98 97 92 Pulse Ox 98 99 100 Oxygen Delivery Method Room Air Room Air Room Air MDM MDM MDM Narrative Medical decision making narrative: Patient is a 30-year-old female who presents to the emergency department the chief concern for UTI. On the differential diagnose includes but not limited to UTI, pyelonephritis, urolithiasis, chlamydia, gonorrhea, trichomonas. Once workup is obtained reviewed she will be reevaluated. Patient's urinalysis was reviewed and showed no evidence of infection test was negative. Given the patient's overall symptoms we will add a basic workup on as well as a CT abdomen pelvis. Patient will then be reevaluated. Patient CBC showed a white blood count 11.4, hemoglobin 12.4, platelet count of 363. Patient sodium normal 139, potassium was 3.6, creatinine 0.72. Patient AST and ALT are 22 and 22 respectively. Patient lipase normal at 18. Patient CT ab pelvis showed recent right ovarian cyst rupture but no pelvic free fluid no acute abdominal pelvic findings. Patient negative for trichomonas patient is negative for gonorrhea chlamydia Discussed results with the patient she would like to be treated for yeast and bacterial vaginosis I told her that we should perform a pelvic exam and she refused. Patient be given a dose of Diflucan here and Flagyl. Prescription for Flagyl be sent to the pharmacy she was vies do not drink alcohol under the influence of this medication as it will make her sick. She is vies follow-up with Dr. Salmon setting return for worsening symptoms or concerns. She is agreeable this plan all course concerns answered she was discharged home in stable condition. Lab Data Labs: Laboratory Results - last 24 hr 01/17/25 01/17/25 18:50 20:42 WBC 11.4 H RBC 4.17 L Hgb 12.4 Hct 38.1 MCV 91.4 MCH 29.7 MCHC 32.5 RDW Std Deviation 42.9 RDW Coeff of Jose 12.9 Plt Count 363 MPV 10.3 Immature Gran % (Auto) 0.300 Neut % (Auto) 59.2 Lymph % (Auto) 30.1 [place] % (Auto) 8.0 Eos % (Auto) 1.8 Baso % (Auto) 0.6 Absolute Neuts (auto) 6.8 Absolute Lymphs (auto) 3.44 Nucleated RBC % 0 Sodium 139 Potassium 3.6 Chloride 105 Carbon Dioxide 21.6 Anion Gap 13 BUN 11 Creatinine 0.72 Estim Creat Clear Calc 128.18 Est GFR (MDRD) Non-Af 114 BUN/Creatinine Ratio 15.1 Glucose 99 Calcium 8.9 Total Bilirubin 0.37 AST 22 ALT 22 Alkaline Phosphatase 84 Total Protein 6.7 Albumin 4.4 Globulin 2.3 Albumin/Globulin Ratio 1.9 Lipase 18 Urine Color Straw Urine Clarity Clear Urine pH 6.5 Ur Specific [place] 1.010 Urine Protein 15 H Urine Glucose (UA) Normal Urine Ketones Negative Urine Occult Blood Negative Urine Nitrite Negative Urine Bilirubin Negative Urine Urobilinogen Normal Ur Leukocyte Esterase Negative Urine RBC 0-5 SEEN Urine WBC 0-5 SEEN Ur Squamous Epith Cells 0-5 SEEN Urine Bacteria 0 SEEN Urine Mucus 0 SEEN Urine Test Negative Radiography Diagnostic Testing: Clinical Impression(s) from Imaging Studies Abdomen/Pelvis CT 01/17/25 20:29 IMPRESSION: Recent right ovarian cyst rupture, but no pelvic free fluid. No acute abdominopelvic findings otherwise noted. Reading Location: [place] [address] Discharge Plan Triage Chief Complaint: Complaint ED Provider: Dayne Michele Dx/Rx/DC Orders Clinical Impression: Vaginal yeast infection, Vaginal discharge, Urinary frequency Prescriptions: New metronidazole 500 mg tablet 500 mg PO BID 7 Days Qty: 14 0RF No Action albuterol sulfate 90 mcg/actuation HFA aerosol inhaler 1 inh inhalation Q6H PRN (Reason: shortness of breath or wheezing) Qty: 8.5 3RF loratadine [Allergy Relief (loratadine)] 10 mg tablet 10 mg PO DAILY cephalexin 500 mg capsule 500 mg PO Q12 Qty: 14 0RF albuterol sulfate [Ventolin HFA] 90 mcg/actuation HFA aerosol inhaler 1 - 2 puff inhalation Q4H PRN PRN (Reason: Wheezing) Qty: 1 0RF loratadine [Claritin] 10 mg tablet 10 mg PO DAILY Qty: 30 0RF fluconazole 150 mg tablet 150 mg PO X1 PRN (Reason: yeast) Qty: 2 0RF Rx Instructions: administer on day 1 of therapy. repeat in 1 week if needed. metronidazole 500 mg tablet 500 mg PO BID 7 Days Qty: 14 0RF fluconazole 150 mg tablet 150 mg PO Q3D Qty: 2 0RF Rx Instructions: may repeat second dose 72 hrs after first dose if symptoms persist albuterol sulfate [Ventolin HFA] 90 mcg/actuation HFA aerosol inhaler 1 - 2 puff inhalation Q4H PRN PRN (Reason: Wheezing) Qty: 1 0RF metronidazole 500 mg tablet 500 mg PO BID 7 Days Qty: 14 0RF fluconazole 150 mg tablet 150 mg PO Q3D Qty: 2 0RF Rx Instructions: take first dose after completion of antibiotics. May take another dose 3 days later as needed if symptoms persist. azithromycin [Zithromax] 250 mg tablet 250 mg PO DAILY 4 Days Qty: 4 0RF Rx Instructions: start on day 2 of therapy ondansetron 4 mg tablet,disintegrating 4 mg PO Q8H PRN PRN (Reason: Nausea) Qty: 10 0RF lansoprazole [Prevacid] 30 mg capsule,delayed release(DR/EC) 30 mg PO DAILY Qty: 14 0RF bisacodyl [OneLAX Bisacodyl] 10 mg suppository 10 mg WA DAILY PRN (Reason: constipation) Qty: 12 0RF Primary Care Provider: Stephany Bae Referrals: Stephany Bae, DO [Primary Care Provider] - Activity Restrictions/Additional Instructions: Take antibiotic as prescribed. Do not drink alcohol while taking this this will make you sick. Follow-up your doctors return with worsening symptoms or other concerns. Print Language: Thai Disposition Disposition: Home, Self Care
[2025-01-17] MEDS: FLUCONAZOLE 150 MG TABLET PO (23:34)
== END 2025-01-17 23:30 | disposition home or self-care (01) ==
PROVIDERS: Emergency Provider Emergency Medicine; PCP Family Medicine; Visit Provider Emergency Medicine
DX: R35.0 Frequency of micturition (principal); B37.31 Acute candidiasis of vulva and vagina; N89.8 Other specified noninflammatory disorders of vagina; F17.210 Nicotine dependence, cigarettes, uncomplicated
CPT/HCPCS: 74177; 80053; 81001; 81025; 83690; 85025; 87086; 87088; 87491; 87591; 87661; 96360; 96361; 99284; Q9967; A4216